=== PATIENT | male | born 1955 | race Caucasian/White ===

== ENCOUNTER 2016-12-21 07:34 | Inpatient (IN) | payer MEDICARE, MEDICAID ==
--- NOTE | 2016-12-21 07:36 | ED Physician Chart ---
Chief Complaint/HPI - Patient Information Date Seen:: 12/21/16 Time Seen:: 07:35 Chief Complaint:: shortness of breath History of Present Illness:: 61-year-old male brought in by paramedics with acute, severe, shortness of breath that started about 1 hour prior to arrival. Has associated hypoxia. Apparently had O2 sats in the mid 70s on room air prior to arrival. History limited due to patient's clinical condition where he is unable to speak due to respiratory distress History provided by EMS and EMS run sheet Allergies:: Allergies Allergy/AdvReac Type Severity Reaction Status Date / Time No Known Allergies Allergy Verified 07/06/16 20:25 Historian:: EMS Review:: Nurse's Note Reviewed, EMS run form Reviewed, Transfer documents Reviewed Review of Systems - Review of Systems Other: Complete system review otherwise unremarkable except as noted in HPI. Family Medical History - Family Member Mother History Unknown: Yes Physical Exam - Physical Examination Other:: INITIAL VITAL SIGNS: Reviewed by me GENERAL: Patient is lying on gurney and is in severe respiratory distress HEAD: Head is normocephalic. No evidence of trauma. No scalp or facial swelling EYES: No scleral icterus bilaterally ENT: Oropharynx is clear of exudate and erythema NECK: Supple. No meningismus. No masses. No evidence of trauma. No cervical spine bony step-offs or crepitus to palpation RESPIRATORY: Tachypneic bilateral rhonchi worse on the right than left. CV: Regular rate and rhythm. No murmurs, rubs, or gallops ABDOMEN: Soft, non-distended. No masses BACK: No ecchymoses. No evidence of trauma EXTREMITIES: Normal to inspection and palpation. No deformity SKIN: Warm and dry. No obvious rash. No jaundice NEUROLOGIC: Face is symmetric. Withdraws to pain in all extremities Labs/Radiology/EKG Results - Lab Results Results: Lab Results 12/21/16 12/21/16 12/21/16 Range/Units 07:55 07:55 07:55 WBC 3.2 L D (4.8-10.8) Th/cmm RBC 4.98 (4.30-5.70) Mil/cmm Hgb 15.8 D (13.2-17.3) gm/dL Hct 46.4 D (39.0-49.0) % MCV 93.1 (80-99) fl MCH 31.7 H (26.0-30.0) pg MCHC Differential 34.0 (28.0-36.0) pg RDW 12.8 (11.5-20.0) % Plt Count 121 L D (150-400) Th/cmm MPV 10.8 fl PT 12.6 H (9.5-11.5) SECONDS INR 1.20 (0.5-1.4) PTT (Actin FS) 27.8 (26.0-38.0) SECONDS Sodium 138 (136-145) mEq/L Potassium 3.1 L (3.5-5.1) mEq/L Chloride 101 (98-107) mEq/L Carbon Dioxide 26.1 (21.0-31.0) mEq/L Anion Gap 14.0 (7.0-16.0) BUN 50 H (7-25) mg/dL Creatinine 0.9 (0.7-1.3) mg/dL Est GFR ( Amer) > 60.0 (>90) ml/min Est GFR (Non-Af Amer) > 60.0 ml/min BUN/Creatinine Ratio 55.6 Glucose 144 H (70-105) mg/dL Whole Bld Lactic Acid (0.60-1.99) mmol/L Calcium 9.5 (8.6-10.3) mg/dL Total Bilirubin 1.3 H (0.3-1.0) mg/dL AST 25 (13-39) U/L ALT 11 (7-52) U/L Alkaline Phosphatase 65 (34-104) U/L Creatine Kinase 26 L (30-223) U/L Total Protein 6.7 (6.0-8.3) gm/dL Albumin 3.3 L (4.2-5.5) gm/dL Globulin 3.4 gm/dL Albumin/Globulin Ratio 1.0 (1.0-1.8) 12/21/16 Range/Units 08:20 WBC (4.8-10.8) Th/cmm RBC (4.30-5.70) Mil/cmm Hgb (13.2-17.3) gm/dL Hct (39.0-49.0) % MCV (80-99) fl MCH (26.0-30.0) pg MCHC Differential (28.0-36.0) pg RDW (11.5-20.0) % Plt Count (150-400) Th/cmm MPV fl PT (9.5-11.5) SECONDS INR (0.5-1.4) PTT (Actin FS) (26.0-38.0) SECONDS Sodium (136-145) mEq/L Potassium (3.5-5.1) mEq/L Chloride (98-107) mEq/L Carbon Dioxide (21.0-31.0) mEq/L Anion Gap (7.0-16.0) BUN (7-25) mg/dL Creatinine (0.7-1.3) mg/dL Est GFR ( Amer) (>90) ml/min Est GFR (Non-Af Amer) ml/min BUN/Creatinine Ratio Glucose (70-105) mg/dL Whole Bld Lactic Acid 5.69 H* (0.60-1.99) mmol/L Calcium (8.6-10.3) mg/dL Total Bilirubin (0.3-1.0) mg/dL AST (13-39) U/L ALT (7-52) U/L Alkaline Phosphatase (34-104) U/L Creatine Kinase (30-223) U/L Total Protein (6.0-8.3) gm/dL Albumin (4.2-5.5) gm/dL Globulin gm/dL Albumin/Globulin Ratio (1.0-1.8) - Radiology Results Results: Single AP VIEW Portable Chest X-ray was interpreted independently and contemporaneously by Alex Oliveira MD: No cardiomegaly Normal mediastinum Diffuse right-sided infiltrates No pneumothorax No soft tissue or bony abnormalities - EKG Interpretations Comments:: 12-lead EKG Interpretation by Alex Oliveira MD: Normal Sinus Rhythm with ventricular rate of 99 beats per minute Normal axis Normal intervals No acute ST or T wave changes. No obvious STEMI ED Septic Shock - . Is Septic Shock (SBP<90, OR Lactate>4 mmol\L) present?: Yes - <6hrs of presentation: Vital Signs: Vital Signs Temp 97.7 F 12/21/16 07:55 HR 106 12/21/16 07:55 RR 31 12/21/16 07:55 BP 116/68 12/21/16 07:55 O2 Sat % 88 12/21/16 07:55 Temp 97.7 F 12/21/16 07:55 HR 106 12/21/16 07:55 RR 31 12/21/16 07:55 BP 116/68 12/21/16 07:55 O2 Sat % 88 12/21/16 07:55 Assessment of Lungs: Ventilator Assessment of Heart: RRR EKG Interpretation: NSR, No ST elevation, No ST depression, Documented in Result Capillary refill evaluation: Capillary refill < 2 secs Skin Exam: Warm, Dry, No Edema - Peripheral pulse evaluation Brachial Peripheral pulse evaluation-quality: +2 (normal) Reassessment (Disposition) - Reassessment Reassessment:: Patient in severe respiratory distress and quickly moving to respiratory failure. Respiratory failure, proceeded with rapid sequence intubation Patient has G-tube and history of anoxic encephalopathy. Most likely this is aspiration pneumonia. Intubation Endotracheal Intubation by me, Dr. Alex Oliveira M.D.: Pre assessment performed. See preceding note for details. Pre-oxygenation performed with 100% oxygen RSI: Performed w/o complication or hypoxic events. Medications as ordered. Blade: MAC 4 ET Tube: 7.5 cm Depth: 24 cm at the lip Compl: No hypoxic events or bradycardia Intubation confirmed by colorimetric CO2, equal breath sounds, quiet over the stomach. Chest X-ray 1V Interpreted by me: 2.5 cm above the esperanza ET tube. Normal soft tissue, No pneumothorax. Admit MDM: Patient's infectious symptoms have not stabilized and the patient is at risk of rapid decompensation. The patient will be admitted for careful hydration, antibiotic therapy, and infectious source control. Severe Sepsis criteria: Infectious source: left sided pneumonia End organ damage indicated by: Lactate > 2.0 mmol/L Acute Resp Failure (sat < 92% w/o oxygen) Sepsis Management: Time of recognition of severe sepsis/septic shock: 0735 Within 3 hours of recognition: Blood cultures x 2 before broad-spectrum antibiotics: Yes 30 ml/kg NS bolus Completed Initial lactate 5.69 Septic Shock Assessment: Any lactic acid > 4.0 yes Volume Re-assessment for Septic Shock (post 30 ml/kg bolus): Vital Signs Temp 97.7 F 12/21/16 07:55 HR 106 12/21/16 07:55 RR 31 03/07/17 07:55 BP 116/68 12/21/16 07:55 O2 Sat % 88 12/21/16 07:55 Temp 97.8 F 12/21/16 09:01 HR 88 12/21/16 09:01 RR 12 12/21/16 09:01 BP 133/74 12/21/16 09:01 O2 Sat % 97 12/21/16 09:01 Heart Regular rate & rhythm Lungs No crackles, ventilated Skin Warm & dry Cap Refill Less than 2 seconds Peripheral pulses Radially present Persistent Hypotension Treatment: Comfort care No Central line right external jugular, 18-gauge I considered further perfusion assessment with CVP measurement, SCVO2, bedside ultrasound volume assessment, passive leg raise, trial of further fluid bolus. And proceeded with 3 L IV normal saline bolus Accepting Care Team Current data and ongoing care discussed. Time: 903 Admitting Physician: Dr. Thomas Metal Stud Framer(s): Outstanding Data: Second lactic acid Critical Care: Critical care time 35 minutes Emergent fluid management while maintaining close respiratory support. Provision of immediate and broad-spectrum antibiotic therapy. Simultaneous assessment for possible sources in order to direct targeted therapy. Consideration for invasive and chemical support to prevent cardiopulmonary collapse. Reassessment Condition:: Improved - Diagnosis Diagnosis:: Septic shock Diffuse right sided pneumonia, aspiration - Aftercare/Follow up Instructions Aftercare/Follow-Up Instructions:: Counseled pt regarding lab results/diagnosis & need follow up, Refer to Discharge Instructions - Patient Disposition Discharge/Transfer:: Acute Care w/in this hosp Admitted to:: ICU Admitting Medical Physician:: Federico Thomas Time:: 09:04 Condition at Disposition:: Stable
[2016-12-21] MEDS ORDERED: Sodium Chloride 0.9% 1,000 ML IV ONE ×3 (07:37)
[2016-12-21] MEDS ORDERED: Piperacillin Sodium/Tazobact 3.375 gm Vial IV ONE (08:12)
[2016-12-21 08:20] LABS: INR 1.2 (0.5-1.4); PROTHROMBIN TIME (TEST) 12.6 SECONDS (9.5-11.5)
[2016-12-21 08:23] LABS: ALKALINE PHOSPHATASE 65 U/L (34-104); BILIRUBIN,TOTAL 1.3 mg/dL (0.3-1.0); BUN - UREA NITROGEN 50 mg/dL (7-25); BUN/CREATININE RATIO 55.6; CALCIUM SERUM 9.5 mg/dL (8.6-10.3); CARBON DIOXIDE 26.1 mEq/L (21.0-31.0); CHLORIDE 101 mEq/L (98-107); CREATININE - SERUM 0.9 mg/dL (0.7-1.3); GLUCOSE 144 mg/dL (70-105); POTASSIUM SERUM 3.1 mEq/L (3.5-5.1); SGOT 25 U/L (13-39); SGPT/ALT 11 U/L (7-52); SODIUM SERUM 138 mEq/L (136-145)
[2016-12-21 08:29] LABS: MEAN CELL VOLUME 93.1 fl (80-99); MEAN CORPUSCULAR HEMOGLOBIN 31.7 pg (26.0-30.0); MEAN PLATELET VOLUME 10.8 fl; RED BLOOD COUNT 4.98 Mil/cmm (4.30-5.70); RED CELL DISTRIBUTION WIDTH 12.8 % (11.5-20.0)
[2016-12-21 08:31] LABS: HEMATOCRIT 46.4 % (39.0-49.0); HEMOGLOBIN 15.8 gm/dL (13.2-17.3); PLATELET COUNT 121 Th/cmm (150-400); WHITE BLOOD COUNT 3.2 Th/cmm (4.8-10.8)
[2016-12-21 09:18] LABS: URINE BILIRUBIN NEGATIVE (NEGATIVE); URINE BLOOD NEGATIVE (NEGATIVE); URINE COLOR YELLOW; URINE GLUCOSE (UA) NEGATIVE (NEGATIVE); URINE KETONE TRACE mg/dL (NEGATIVE); URINE PROTEIN 30 mg/dL (NEGATIVE)
[2016-12-21 09:24] LABS: URINE BACTERIA NONE SEEN /hpf (NONE SEEN); URINE EPITHELIAL CELLS RARE /lpf (FEW); URINE RBC 0-1 /hpf (0-5); URINE WBC 0-2 /hpf (0-5)
--- NOTE | 2016-12-21 09:27 | Diagnostic Imaging Report ---
CHEST X-RAY: AP view INDICATION: ET tube placement COMPARISON: None FINDINGS: ET tube is in place with tip 1.8 cm above the esperanza. Right effusion and right lung infiltrates are noted. Chronic changes are also noted. Heart size normal. Osseous structures are intact. IMPRESSION: ET tube with tip 1.8 cm above the Es[place]anza. Right pleural effusion with right lung infiltrates.
[2016-12-21 10:24] LABS: BAND NEUTROPHILE 17 % (0-10); METAMYELOCYTE 3 % (0-0); NEUTROPHILS 45 % (40-80); PLATELET ESTIMATE DECREASED PLATELETS (NORMAL); PLATELET MORPHOLOGY NORMAL (NORMAL); TOTAL CELLS COUNTED 100
[2016-12-21 10:50] VITALS: BP 126/75
[2016-12-21] MEDS ORDERED: Albuterol Nebulizer 2.5mg/3mL HHN PRN (11:00)
[2016-12-21] MEDS ORDERED: Zinc Oxide Ointment 60 gm TP PRN (11:00)
[2016-12-21] MEDS ORDERED: Fleet Enema 135 mL RC PRN (11:00)
[2016-12-21] MEDS ORDERED: Non-Formulary Item 1 EA (Oxybenzone/Padimate O [Sunscreen Spf8 Lotion] 120 ML) TP PRN (11:00)
[2016-12-21] MEDS ORDERED: D5-0.9%NS 1,000 ML IV SCH (12:13)
--- NOTE | 2016-12-21 12:18 | Internal Medicine Prog Note ---
Internal Medicine Subjective - Subjective Service Date: 12/21/16 ([id number]) Internal Medicine Objective - Results Result Diagrams: 12/21/16 07:55 12/21/16 07:55 Recent Labs: Laboratory Last Values WBC 3.2 Th/cmm (4.8-10.8) L D 12/21/16 07:55 RBC 4.98 Mil/cmm (4.30-5.70) 12/21/16 07:55 Hgb 15.8 gm/dL (13.2-17.3) D 12/21/16 07:55 Hct 46.4 % (39.0-49.0) D 12/21/16 07:55 MCV 93.1 fl (80-99) 12/21/16 07:55 MCH 31.7 pg (26.0-30.0) H 12/21/16 07:55 MCHC Differential 34.0 pg (28.0-36.0) 12/21/16 07:55 RDW 12.8 % (11.5-20.0) 12/21/16 07:55 Plt Count 121 Th/cmm (150-400) L D 12/21/16 07:55 MPV 10.8 fl 12/21/16 07:55 Band Neutrophils % 17 % (0-10) H 12/21/16 07:55 Neutrophils (Manual) 45 % (40-80) 12/21/16 07:55 Lymphocytes 22 % (20-50) 12/21/16 07:55 Monocytes 13 % (2-10) H 12/21/16 07:55 Metamyelocytes 3 % (0-0) H 12/21/16 07:55 Platelet Estimate DECREASED PLATELETS (NORMAL) 12/21/16 07:55 Platelet Morphology NORMAL (NORMAL) 12/21/16 07:55 RBC Morph Micro Appear NORMAL (NORMAL) 12/21/16 07:55 PT 12.6 SECONDS (9.5-11.5) H 12/21/16 07:55 INR 1.20 (0.5-1.4) 12/21/16 07:55 PTT (Actin FS) 27.8 SECONDS (26.0-38.0) 12/21/16 07:55 Sodium 138 mEq/L (136-145) 12/21/16 07:55 Potassium 3.1 mEq/L (3.5-5.1) L 12/21/16 07:55 Chloride 101 mEq/L (98-107) 12/21/16 07:55 Carbon Dioxide 26.1 mEq/L (21.0-31.0) 12/21/16 07:55 Anion Gap 14.0 (7.0-16.0) 12/21/16 07:55 BUN 50 mg/dL (7-25) H 12/21/16 07:55 Creatinine 0.9 mg/dL (0.7-1.3) 12/21/16 07:55 Est GFR ( Amer) > 60.0 ml/min (>90) 12/21/16 07:55 Est GFR (Non-Af Amer) > 60.0 ml/min 12/21/16 07:55 BUN/Creatinine Ratio 55.6 12/21/16 07:55 Glucose 144 mg/dL (70-105) H 12/21/16 07:55 Whole Bld Lactic Acid 6.21 mmol/L (0.60-1.99) H* 12/21/16 10:20 Calcium 9.5 mg/dL (8.6-10.3) 12/21/16 07:55 Total Bilirubin 1.3 mg/dL (0.3-1.0) H 12/21/16 07:55 AST 25 U/L (13-39) 12/21/16 07:55 ALT 11 U/L (7-52) 12/21/16 07:55 Alkaline Phosphatase 65 U/L (34-104) 12/21/16 07:55 Creatine Kinase 26 U/L (30-223) L 12/21/16 07:55 Total Protein 6.7 gm/dL (6.0-8.3) 12/21/16 07:55 Albumin 3.3 gm/dL (4.2-5.5) L 12/21/16 07:55 Globulin 3.4 gm/dL 12/21/16 07:55 Albumin/Globulin Ratio 1.0 (1.0-1.8) 12/21/16 07:55 Urine Source CATH 12/21/16 08:30 Urine Color YELLOW 12/21/16 08:30 Urine Clarity SL. CLOUDY (CLEAR) 12/21/16 08:30 Urine pH 6.0 12/21/16 08:30 Ur Specific [place] 1.025 (1.005-1.030) 12/21/16 08:30 Urine Protein 30 mg/dL (NEGATIVE) H 12/21/16 08:30 Urine Glucose (UA) NEGATIVE mg/dL (NEGATIVE) 12/21/16 08:30 Urine Ketones TRACE mg/dL (NEGATIVE) 12/21/16 08:30 Urine Blood NEGATIVE (NEGATIVE) 12/21/16 08:30 Urine Nitrate NEGATIVE (NEGATIVE) 12/21/16 08:30 Urine Bilirubin NEGATIVE (NEGATIVE) 12/21/16 08:30 Urine Urobilinogen 2.0 E.U./dL (0.2 - 1.0) 12/21/16 08:30 Ur Leukocyte Esterase NEGATIVE (NEGATIVE) 12/21/16 08:30 Urine RBC 0-1 /hpf (0-5) 12/21/16 08:30 Urine WBC 0-2 /hpf (0-5) 12/21/16 08:30 Ur Epithelial Cells RARE /lpf (FEW) 12/21/16 08:30 Urine Bacteria NONE SEEN /hpf (NONE SEEN) 12/21/16 08:30 - Physical Exam Vitals and I&O: Vital Signs Temp 97.8 F 12/21/16 10:12 Pulse 88 12/21/16 10:12 Resp 20 12/21/16 10:12 BP 126/75 12/21/16 10:50 Pulse Ox 98 12/21/16 10:12 Intake & Output 12/20/16 12/21/16 12/21/16 18:59 06:59 18:59 Intake Total 100 Balance 100 Weight (lbs) 173 lb Intake: Intake, IV Amount 100 Piperacillin Sodium/ 100 Tazobact 3.375 gm In Sodium Chloride 0.9% 50 ml @ 100 mls/hr IV X1 ONE Rx#:[id number] Active Medications: Current Medications Acetaminophen (Tylenol 650mg/20.3ml Suspension) 650 mg GT Q4H PRN PRN Reason: PAIN OR TEMP >100 Stop: 02/19/17 10:59 Albuterol Sulfate (Albuterol 2.5mg/3ml Neb Ud) 2.5 mg HHN Q4H PRN PRN Reason: Congestion Stop: 02/19/17 10:59 Atenolol (Tenormin) 25 mg GT DAILY JES[facility] MANUEL Stop: 02/20/17 08:59 Bisacodyl (Dulcolax 10 Mg Supp) 10 mg RC PRN PRN PRN Reason: IF MOM INEFFECTIVE Stop: 02/19/17 10:59 Calcium Carbonate (Tums) 1,250 mg GT DAILY JESUS MANUEL Stop: 02/20/17 08:59 Chlorhexidine Gluconate (Peridex) 15 ml MM 0800,2000 JES[facility] MANUEL Stop: 02/19/17 19:59 Dextromethorphan/Quinidine (Nuedexta 20mg-10mg) 1 cap GT BID JESUS MANUEL Stop: 02/19/17 16:59 Propofol (Diprivan) 1,000 mg in 100 mls @ 0 mls/hr IV TITR JESUS MANUEL; Per Protocol PRN Reason: Protocol Stop: 02/19/17 08:14 Vancomycin HCl 1 gm/ Sodium (Chloride) 250 mls @ 165 mls/hr IV Q12HR JESUS MANUEL Stop: 02/19/17 10:59 Last Admin: 12/21/16 11:18 Dose: 165 mls/hr Propofol (Diprivan) 1,000 mg in 100 mls @ 14.125 mls/hr IV TITR JESUS MANUEL; 30 MCG/KG/ MIN PRN Reason: Protocol Stop: 02/19/17 11:26 Dextrose/Sodium Chloride (D5-0.9%Ns) 1,000 mls @ 125 mls/hr IV .Q8H JESU SMANUEL Stop: 02/19/17 12:12 Miscellaneous (Ascorbic Acid) 500 mg GT BID [facility] Stop: 02/19/17 16:59 Miscellaneous (Calcium Carb/Magnesium Hydrox [Mi-Acid Ds Tablet]) 1 ctb GT QID JES[facility] MANUEL Stop: 02/19/17 12:59 Miscellaneous (Cholecalciferol (Vitamin D3) [Vitamin D3]) 400 unit GT DAILY [facility] Stop: 02/20/17 08:59 Miscellaneous (Multivit,Th Iron,Other Min [Thera-M]) 1 tab GT DAILY [facility] Stop: 02/20/17 08:59 Miscellaneous (Omeprazole [Omeprazole]) 20 mg GT BID [facility] Stop: 02/19/17 16:59 Miscellaneous (Oxybenzone/Padimate O [Sunscreen Spf8 Lotion]) 120 ml TP PRN PRN PRN Reason: SUN EXPOSURE Miscellaneous (Prostat ) 30 ml GT DAILY [facility] Stop: 02/20/17 08:59 Miscellaneous (Zinc Oxide [Desitin]) 13 % TP PRN PRN PRN Reason: G-TUBE AREA IRRITATION Polyethylene Glycol (Miralax) 17 gm GT DAILY PRN PRN Reason: Constipation Stop: 02/19/17 10:59 Quetiapine Fumarate (Seroquel) 300 mg GT HS JESUS MANUEL PRN Reason: Protocol Stop: 02/19/17 20:59 Quetiapine Fumarate (Seroquel) 200 mg GT DAILY [facility]ES[facility] MANUEL PRN Reason: Protocol Stop: 02/20/17 08:59 Sodium Phosphate (Fleet Enema) 135 ml RC PRN PRN PRN Reason: IF DULCOLAX INEFFECTIVE Stop: 02/19/17 10:59 Trazodone HCl (Desyrel) 25 mg GT HS JESUS MANUEL PRN Reason: Protocol Stop: 02/19/17 20:59 Valproate Sodium (Depakene) 625 mg GT DAILY JESUS MANUEL PRN Reason: Protocol Stop: 02/20/17 08:59 Valproate Sodium (Depakene) 750 mg GT HS JESUS MANUEL PRN Reason: Protocol Stop: 02/19/17 20:59 - Procedures Procedures: Procedures Procedure Code Date CHANGE FEEDING DEVICE IN UP INTEST TRACT, GOVERNMENT RELATIONS MANAGER APPROACH [id number] 07/06/[address] GASTROSTOMY TUBE 89493 02/16/09 OTHER ENDOSCOPY OF SM INTEST 45.13 02/16/09 REPLACE GASTROSTOMY TUBE 97.02 02/16/09 Internal Medicine Assmt/Plan - Assessment Assessment: Septic Shock PNA htn gastritis hypokalemia
[2016-12-21] MEDS ORDERED: Albuterol/Ipratropium Neb 3 ML AERS HHN PRN (12:19)
--- NOTE | 2016-12-21 12:56 | Admit Criteria Form ---
Admit Criteria Forms - Admit Criteria Diagnosis: SEVERE SEPSIS Clinical Indications for Admission to Inpatient Care (Place 'X' for any and all applicable criteria): Hospital admission is needed for appropriate care of the patient because of ANY ONE of the following: [X]I. Hemodynamic instability indicated by ANY ONE of the following(1)(2)(3)( 4)(5): []a. Vital sign abnormality not readily corrected by appropriate treatment within 12 to 24 hours indicated by ANY ONE of the following: []i) Tachycardia that persists despite appropriate treatment []ii) Hypotension that persists despite appropriate treatment []iii)Orthostatic vital sign changes that persist despite appropriate treatment [X]b. Vital sign abnormality that is severe indicated by ANY ONE of the following: [X]i.Inadequate perfusion indicated by ANY ONE of the following : [X]1) Lactic acidosis (greater than 2 mmol/L) []2) New abnormal capillary refill (greater than 3 seconds) []3) Reduced urine output []4) New altered mental status []5) Myocardial Ischemia []ii. Mean arterial pressure [A] less than 60 mm Hg []iii. Mean arterial pressure[A] less than 70 mm Hg after 30 minutes of appropriate treatment (eg, fluid resuscitation) []iv. Sustained heart rate greater than 120 beats per minute in adult []v. IV inotropic or vasopressor medication required to maintain adequate blood pressure or perfusion []II. Systemic or infectious condition causing severe symptoms or findings not responsive to emergency or observation care treatment (as appropriate) indicated by ANY ONE of the following: []a. Cardiac arrhythmias of immediate concern(1)(2)(3) []b. Severe endocrine disorder (eg, thyrotoxicosis, adrenal insufficiency)(4)(5) []c. Seizures (eg, new or recurrent)(6) []d. New-onset end organ failure or dysfunction as indicated by ANY ONE of the following: []i. Acute unexplained hypoxemia (eg, not from lung infection or chronic disease)(7)(8)(9) []ii. Acute renal failure as indicated by new onset of ANY ONE of the following(10)(11)(12)(13)(14): []1) 3-fold rise in serum creatinine from baseline []2) Serum creatinine greater than 4 mg/dL (354 micromoles/L) with acute rise greater than 0.5 mg/dL (44.2 micromoles/L) []3) Reduction of more than 75% in estimated glomerular filtration rate from baseline. []4) Estimated glomerular filtration rate less than 35 mL/min/1.73m2 ( 0.59 mL/sec/1.73m2) in child younger than 18 years. []5) Cessation of urine output indicated by ALL of the following: []A. Adequate volume status []B. Inadequate urine output as indicated by ANY ONE of the following: []a. Urine output less than 0.3 mL/kg/hr for 24 hours []b. Anuria (urine output less than 0.1 mL/kg/hr) for 12 hours []iii. Acute mental status changes(15) []iv.Acute hepatic failure (eg, plasma bilirubin greater than 4 mg/dL ( 68 micromoles/L), new INR greater than 2.0)(16)(17) []e. Unmanageable nausea and vomiting(18) []f. New-onset or uncontrolled central diabetes insipidus(19)(20) []g. Clinically significant dehydration(18)(21) []h. Hypoglycemia(22) []i. Acidosis (pH less than 7.35) or alkalosis (pH greater than 7.45)( 22)(23) []j. Toxic drug level that indicates need for specific monitoring or treatment(24)(25) []k. Severe electrolyte abnormalities indicated by ALL of the following( 1)(2)(3): []i. Electrolytes and associated findings are not as expected for patient baseline or acceptable treatment effects. []ii. Severe abnormalities indicated by ANY ONE of the following: []1) Sodium less than 130 mEq/L (mmol/L) (new) []2) Sodium less than 135 mEq/L (mmol/L) with ANY ONE of the following: []A. Uncorrectable (to near normal or chronic baseline) after trial of outpatient and emergency treatment []B. Altered mental status []C. Seizures []D. Severe medical etiology requiring inpatient management (eg , heart failure, hypovolemia) []3) Sodium greater than 155 mEq/L (mmol/L) []4) Sodium greater than 150 mEq/L (mmol/L) with ANY ONE of the following: []A. Uncorrectable (to near normal or chronic baseline) with outpatient and emergency treatment []B. Altered mental status []C. Seizures []D. Severe medical etiology (eg, hypovolemia, diabetes insipidus) []5) Potassium less than 2.5 mEq/L (mmol/L) despite outpatient and emergency treatment []6) Potassium less than 3 mEq/L (mmol/L) with ANY ONE of the following : []A. Weakness []B. Cardiac abnormality (eg, arrhythmia, conduction disturbance ) []C. Cardiac ischemia []D. Ileus []E. Ongoing medical cause requiring inpatient management (eg, acute renal wasting or SIADH) []F. Other severe symptoms []7) Potassium greater than 6.5 mEq/L (mmol/L) []8) Potassium greater than 5 mEq/L (mmol/L) with ANY ONE of the following: []A. Uncorrectable (to near normal or chronic baseline) with outpatient and emergency treatment []B. Severe ECG findings[A] []C. Acute worsening of renal failure (creatinine greater than 2.5 mg/dL (221 micromoles/L) or significant elevation for age and size) []D. Severe weakness []E. Severe medical etiology (eg, hemolysis, infection, drug overdose) []9) Calcium less than 7 mg/dL (1.75 mmol/L) despite outpatient and emergency treatment(5) []10) Calcium less than 8 mg/dL (2 mmol/L) with significant symptoms or findings (eg, altered mental status, muscle spasms, seizures , breathing difficulty, cardiac abnormality (eg, arrhythmia or conduction disturbance))(5) []11) Calcium greater than 14 mg/dL (3.5 mmol/L)(5) []12) Calcium greater than 12 mg/dL (3 mmol/L) with ANY ONE of the following(5): []A. Uncorrectable (to near normal or chronic baseline) with outpatient and emergency treatment []B. Significant dehydration or hypovolemia as indicated by ALL of the following(3)(6)(7): []a. Not resolved with initial treatments []b. Clinically significant dehydration as indicated by ANY ONE of the following: [](1) Vomiting refractory to outpatient treatment (ie, precluding oral rehydration) [](2) Inability to drink [](3) Hypernatremia or other electrolyte abnormality unable to be corrected with outpatient and emergency treatment [](4) Failure to remain hydrated with outpatient therapy [](5) Reduced urine output [](6) Hypotension [](7) Serious cause for dehydration requiring acute hospitalization ( eg, bowel obstruction, increased intracranial pressure, infectious cause) [](8) Child with ANY ONE of the following(8): [](i) Severe abdominal tenderness [](ii) Adequate care not available at home [](iii) Severe dehydration (greater than 9% loss of body weight) []C. Significant symptoms or findings (eg, altered mental status , cardiac abnormality (eg, arrhythmia, conduction disturbance), malignant etiology requiring inpatient treatment) []13) Phosphorus less than 1 mg/dL (0.32 mmol/L) []14) Phosphorus less than 1.5 mg/dL (0.48 mmol/L) with ANY ONE of the following: []A. Patient unresponsive to outpatient and emergency treatment []B. Significant symptoms or findings (eg, weakness, altered mental status, breathing difficulty, seizures, rhabdomyolysis) []15) Phosphorus greater than 10 mg/dL (3.2 mmol/L) []16) Phosphorus greater than 4.5 mg/dL (1.45 mmol/L) (new) with ANY ONE of the following: []A. Severe medical etiology (eg, crush injury, acute renal failure) []B. Associated hypocalcemia with significant findings (eg, neurologic symptoms, altered mental status, muscle spasms, seizures, breathing difficulty, cardiac abnormality (eg, arrhythmia, conduction disturbance)) []16) Magnesium less than 1 mg/dL (0.41 mmol/L) []17) Magnesium less than 1.5 mg/dL (0.62 mmol/L) with ANY ONE of the following: []A. Patient unresponsive to outpatient and emergency treatment []B. Associated hypocalcemia with significant findings (eg, altered mental status, muscle spasms, seizures, breathing difficulty, cardiac abnormality (eg, arrhythmia, conduction disturbance)) []C. Associated hypokalemia (potassium less than 3 mEq/L (mmol/L )) with risk of arrhythmia []18) Magnesium greater than 4 mEq/L (2 mmol/L) []19) Magnesium greater than 2.5 mEq/L (1.25 mmol/L) with significant symptoms or findings (eg, weakness, altered mental status, cardiac abnormality (eg, arrhythmia, conduction disturbance), breathing difficulty, severe medical etiology (eg, renal failure, hypovolemia)) []20) Uric acid greater than 20 mg/dL (1190 micromoles/L)(9) []21) Uric acid greater than 8 mg/dL (476 micromoles/L) with significant symptoms or findings of tumor lysis syndrome (eg, creatinine greater than 1.5 times upper limit of normal, cardiac abnormality (eg, arrhythmia, conduction disturbance), seizure)(9) []III. High fever or other high-risk infection situation as indicated by ANY ONE of the following(26)(27)(28): []a. Outpatient and observation care antimicrobial treatment unavailable, not effective, or not appropriate []b. Documented bacteremia []c. Temperature greater than 104.9 degrees F (40.5 degrees C) (oral) []d. Temperature greater than 103.1 degrees F (39.5 degrees C) (oral) or less than 96.8 degrees F (36 degrees C) (rectal) that does not respond to emergency treatment and observation care []IV. High-risk febrile neutropenia[A] as indicated by ANY ONE of the following(29)(30)(31)(32): []a. Profound neutropenia[B] anticipated to extend for more than 7 days []b. Hemodynamic instability []c. Hypoxemia []d. Tachypnea []e. Altered mental status []f. New-onset abdominal pain []g. New-onset vomiting or diarrhea []h. Oral or gastrointestinal mucositis that interferes with swallowing or causes severe diarrhea []i. Focal infection (eg, cellulitis, pneumonia, central line or catheter infection, perirectal abscess) []j. Renal insufficiency (eg, GFR of less than 30 mL/min/1.73m2 (0.5 mL/sec /1.73m2)). []k. Severe liver dysfunction (transaminase levels greater than 5 times normal) []l. Platelet count less than 50,000/mm3 (50 x109/L)(33) []m. Leukemia or lymphoma induction therapy []n. Leukemia not in complete remission or with evidence of disease progression []o. Bone marrow transplant patient []p. Alemtuzumab being used for therapy []q. [employer] Association for Supportive Care in Cancer (MASCC) Risk Index score of less than 21[C](33)(35). []V. Isolation required (eg, tuberculosis that requires isolation, Ebola infection)[D](36)(37)(38)(39)(40) []. Gangrene that requires treatment beyond emergency or observation level care(41)(42) []VII. Antitoxin administration and ongoing observation required (eg, tetanus, botulism)(43)(44) []. Suspected infection with rapid progression or severe symptoms as indicated by ANY ONE of the following(45): []a. Streptococcal or staphylococcal toxic shock(46) []b. Diphtheria(47) []c. Hantavirus(48) []d. Severe acute respiratory syndrome(8)(49) []e. Anthrax(50) []f. Ebola[D](36)(37)(38) []g. Necrotizing soft tissue infection(41)(42) []h. Plague(50) []i. Other suspected infection that requires care beyond emergency or observation level care []VII. Severe adverse drug or systemic toxin reaction as indicated by ANY ONE of the following(24): []a. Serotonin syndrome(51)(52) []b. Neuroleptic malignant syndrome(51)(52) []c. Cholinergic syndrome with severe symptoms (eg, bronchorrhea, weakness , mental status changes, seizures)(53) []d. Anticholinergic syndrome []e. Sympathetic syndrome with severe symptoms (eg, seizures, mental status changes, cardiac dysrhythmias) []f. Other severe adverse drug or systemic toxin reaction that remains after emergency or observation level care (as appropriate) []VIII. Allergic reaction with severe symptoms (not responsive to emergency or observation care treatment as appropriate), including ANY ONE of the following(54): []a. Airway edema (pharyngeal, epiglottic, or laryngeal edema) []b. Stridor []c. Respiratory failure []d. Bronchospasm []e. Hypotension []IX. Environmental emergency (not responsive to emergency or observation care treatment as appropriate) as indicated by ANY ONE of the following(55)(56): []a. Hyperthermia []b. Heat stroke []c. Heat exhaustion []d. Hypothermia (temperature less than 95 degrees F (35 degrees C) rectal) (57) []e. Electrocution(58) []X. Complications of transplanted organ (ie, not covered elsewhere)[E] indicated by ANY ONE of the following(59): []a. Acute graft rejection (or graft vs. host disease)[F] requiring inpatient management (eg, intravenous immunosuppression)(60)(61)(62)(63) []b. Acute failure of transplanted organ necessitating inpatient care (eg, cannot be managed in other setting) []c. Infection requiring inpatient management (eg, Hemodynamic instability, need for intravenous antimicrobial treatment)(64)(65) []d. Other complication of transplanted organ requiring inpatient management []XI. Systemic or Infectious Condition condition, symptom, or finding for which emergency and observation care have failed or are not considered appropriate. See General Criteria: Observation Care, General Admission Criteria or Pediatric General Admission Criteria guideline as appropriate. (Contents from SEVERE SEPSIS and SYSTEMIC OR INFECTIOUS CONDITION clinical indications for admission to inpatient care have been integrated in this form) The original [facility] content created by [facility] has been revised. The portions of the content which have been revised are identified through the use of italic text or in bold and [facility] has neither reviewed nor approved the modified material. All other unmodified content is copyright [facility]. Please see references footnoted in the original [facility] edition 2016 Admit Criteria Met?: Yes
[2016-12-21] MEDS: D5-0.9%NS 1,000 ML IV SCH (13:30)
[2016-12-21] MEDS ORDERED: Potassium Chloride 40 MEQ, Lidocaine 1% 20mL Vial 25 MG in Sodium Chloride 0.9% 250 ML IV ONE (14:15)
[2016-12-21] MEDS ORDERED: Albuterol Nebulizer 2.5mg/3mL HHN SCH (15:00)
--- NOTE | 2016-12-21 15:41 | History & Physical ---
CHIEF COMPLAINT: Shortness of breath. HISTORY OF PRESENT ILLNESS: This is a 61-year-old male who is a resident of [facility] who is brought here to [facility] for 1-day history of severe shortness of breath. The patient had oxygen saturation in the mid 70s on room air. The patient was orally intubated and sedated in the ER. For this reason, the patient is now admitted to the ICU. PAST MEDICAL HISTORY: Severe intellectual disability, hypertension, dysphagia, anoxic encephalopathy, aspiration pneumonia, impulse control disorder, insomnia, gastritis, bipolar disorder and pseudobulbar affect. FAMILY HISTORY: Noncontributory. SOCIAL HISTORY: The patient resides at [facility], requiring 24-hour nursing care. PAST SURGICAL HISTORY: PEG. MEDICATIONS: Atenolol, calcium carbonate, Nuedexta, omeprazole, Pro-Stat, trazodone, valproic acid, vitamin C, ____, albuterol and Atrovent. REVIEW OF SYSTEMS: Unable to obtain due to the patient's mental status. PHYSICAL EXAMINATION: GENERAL: The patient remained orally intubated. VITAL SIGNS: Temperature ____, heart rate ____, blood pressure 152/77, respirations 20, O2 98%. HEENT: Head; normocephalic, atraumatic. NECK: Supple. No mass. LUNGS: Rhonchi bilaterally. CARDIOVASCULAR: Regular rhythm. ABDOMEN: Soft, nontender, nondistended. LABORATORY DATA: WBC 3.2, H and H ____ and 46.4, platelet of 121. PT 12.6, INR 1.20, PTT 27.8. Lactic acid 6.21. Sodium 138, potassium 3.1, chloride 101, carbon dioxide 26.1, BUN 50, creatinine 0.9. The patient had a urinalysis done, negative for any UTI. The patient had a chest x-ray done in the ER and the impression is right pleural effusion with right lung infiltrate. ASSESSMENT: Septic shock, pneumonia, acute respiratory distress, hypertension, and gastritis. PLAN: The patient to be admitted to ICU. The patient will have a consultation with Dr. Clarence Howard and Dr. Wilfred Howard as well. The patient will be on IV antibiotics of vancomycin per Pharmacy dose. We will keep the patient n.p.o. for now except medications. Will have a PICC line placed. IV fluids for hydration. We will continue to monitor the patient. [facility]# [id number]
[2016-12-21] MEDS: Dextromethorphan/Quinidine 20mg/10mg Cap GT SCH (16:31)
[2016-12-21] MEDS: Pantoprazole 40 mg/Packet GT SCH (16:32)
[2016-12-21] MEDS: Morphine Sulfate 2 mg/mL 1mL Syr IVP PRN (17:34)
[2016-12-21] MEDS: methylPREDNISolone SS 40 mg Vial IV SCH (17:35)
[2016-12-21] MEDS: MAGNESIUM HYDROX GT SCH (17:48)
[2016-12-21] MEDS: CALCIUM CARB GT SCH (17:48)
[2016-12-21] MEDS: Budesonide 0.5 Mg/2 mL Ud HHN SCH (19:22)
[2016-12-21] MEDS: Albuterol/Ipratropium Neb 3 ML AERS HHN SCH ×2 (19:22→23:41)
[2016-12-21] MEDS: Chlorhexidine Gluconate 0.12% 15mL Mouthwash MM SCH (20:58)
[2016-12-22] MEDS: methylPREDNISolone SS 40 mg Vial IV SCH ×2 (00:20→05:52)
[2016-12-22] MEDS: D5-0.9%NS 1,000 ML IV SCH (01:02)
[2016-12-22] MEDS: Albuterol/Ipratropium Neb 3 ML AERS HHN SCH ×6 (03:24→22:48)
[2016-12-22 05:39] LABS: MEAN CELL VOLUME 95.6 fl (80-99); MEAN CORPUSCULAR HEMOGLOBIN 32.6 pg (26.0-30.0); MEAN CORPUSCULAR HGB CONC 34.1 pg (28.0-36.0); MEAN PLATELET VOLUME 11.8 fl; PLATELET COUNT 109 Th/cmm (150-400); RED BLOOD COUNT 3.48 Mil/cmm (4.30-5.70); RED CELL DISTRIBUTION WIDTH 13.3 % (11.5-20.0)
[2016-12-22 05:42] LABS: ANION GAP 15.4 (7.0-16.0); BUN - UREA NITROGEN 43 mg/dL (7-25); BUN/CREATININE RATIO 61.4; CALCIUM SERUM 7.5 mg/dL (8.6-10.3); CARBON DIOXIDE 17.9 mEq/L (21.0-31.0); CHLORIDE 114 mEq/L (98-107); CREATININE - SERUM 0.7 mg/dL (0.7-1.3); MAGNESIUM 1.8 mg/dL (1.9-2.7); PHOSPHOROUS 2.4 mg/dL (2.5-5.0); POTASSIUM SERUM 3.3 mEq/L (3.5-5.1); SODIUM SERUM 144 mEq/L (136-145)
[2016-12-22 05:45] LABS: HEMATOCRIT 33.3 % (39.0-49.0); HEMOGLOBIN 11.3 gm/dL (13.2-17.3); WHITE BLOOD COUNT 9.8 Th/cmm (4.8-10.8)
[2016-12-22 06:05] LABS: TSH 2.71 uIU/ml (0.34-5.60)
[2016-12-22 06:09] LABS: GLUCOSE 515 mg/dL (70-105)
--- NOTE | 2016-12-22 06:43 | Consultation ---
REASON FOR CONSULTATION: Help the patient with acute respiratory failure. 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 The patient was subsequently seen in the Emergency Room and the patient has desaturation despite high flow oxygen, etc. Subsequently, I was asked to see the patient post-intubation on a ventilator to manage the case on this patient. Unfortunately, the patient is still quite agitated despite on sedative drips, etc., and very difficult to get any information. I am not too sure how much he is intellectually communicable person. PAST MEDICAL HISTORY: Severe intellectual disability, physical disability, hypertension, dysphagia and previous questionable history of anoxic encephalopathy, previous history of aspiration and also previous history of bipolar and pseudobulbar effect. Smoking history is nil. Allergic history is none. The patient ____ totally cared by people at [facility]. CURRENT MEDICATION: He is taking beta ashley, calcium carbonate, omeprazole, valproic acid, albuterol, Atrovent, Trazodone, etc., multiple medication. PHYSICAL FINDINGS: GENERAL: This is a middle-aged fairly developed gentleman, awake, quite restless and ____ to have quite atrophic lower extremity. Upper extremity has good movement and noncommunicative and not in any acute distress. VITAL SIGNS: The patient's recorded vitals BP is 119/60, temperature earlier was 100.2, saturation is 90% on 100% on a ventilator. HEENT: Examination of the head is essentially unremarkable. Pupils appear to be equal and reacting to light. Conjunctivae are slightly pallor. Oral cavity shows endotracheal tube with poor dental hygiene, trying to bite the endotracheal tube. NECK: Veins could not be visualized. There is a central line from the right jugular, good bilateral carotid upstroke. CHEST: Findings show slight increase in the PA diameter. On auscultation, diminished air entry with mostly on the right side with occasional rhonchi. HEART: Regular. ABDOMEN: Shows lower abdominal surgical scar with upper area G-tube soft and nontender. EXTREMITIES: Shows poor pulsations. No cyanosis or clubbing. LABORATORY DATA: White count is 3.2, hemoglobin 15.8 and monocytes is elevated. PT/INR is 1.2 and the patient's electrolytes show potassium 3.1, BUN is 50 and glucose 144, lactic acid 6.21 and the patient's protein in urine is essentially 30, quite high. Chest x-ray shows endotracheal tube in good position, smaller size with some right-sided haziness, probably infiltrate and/or effusion both. ASSESSMENT: 1. The patient has acute respiratory failure with extensive infiltrate and effusion on the right side. Most likely this is an aspiration of gastric content, also ____ aspiration, most likely scenario and/or possibility of healthcare-associated pneumonia as the patient lives in [place], could be not totally 100%, no doubt. 2. Currently, requiring very high flow oxygenation, probably most likely as above, doubt PE, underlying history is significant intellectual and physical disability, underlying psychiatric illness as well and psychological disability as well. PLANS AND SUGGESTIONS: We will go ahead and restart the steroid, agree with Zosyn and vancomycin and repeat the cultures. We will give inhaled steroid and repeat blood gasses, chest x-ray in next 24-48 hours and see how he does and go from there. JOB# [id number]
[2016-12-22] MEDS: Budesonide 0.5 Mg/2 mL Ud HHN SCH ×2 (07:59→19:21)
[2016-12-22] MEDS: Chlorhexidine Gluconate 0.12% 15mL Mouthwash MM SCH ×2 (08:00→20:33)
[2016-12-22 08:18] LABS: BAND NEUTROPHILE 43 % (0-10); METAMYELOCYTE 4 % (0-0); NEUTROPHILS 37 % (40-80); TOTAL CELLS COUNTED 100
[2016-12-22 08:19] LABS: PLATELET ESTIMATE DECREASED PLATELETS (NORMAL); PLATELET MORPHOLOGY NORMAL (NORMAL)
[2016-12-22] MEDS: Pantoprazole 40 mg/Packet GT SCH (08:51)
[2016-12-22] MEDS: Dextromethorphan/Quinidine 20mg/10mg Cap GT SCH (08:55)
[2016-12-22] MEDS: Multivitamin w/ Minerals Tab GT SCH (08:55)
[2016-12-22] MEDS ORDERED: PROSTAT GT SCH (09:00)
--- NOTE | 2016-12-22 09:10 | Diagnostic Imaging Report ---
CHEST X-RAY: AP view INDICATION: PICC line placement COMPARISON: Chest x-ray earlier the same day at 8:03 AM FINDINGS: ET tube is stable. Right PICC line has been place with tip in the right atrium. Right lung infiltrates and small right effusion is noted. Mild cardiomegaly is noted. IMPRESSION: ET tube with tip in the right atrium. Recommend 2 cm pullback Right lung multifocal infiltrates and small right effusion.
--- NOTE | 2016-12-22 09:18 | Diagnostic Imaging Report ---
CHEST X-RAY: AP view INDICATION: Pneumonia COMPARISON: 12/21/2016 FINDINGS: Right PICC line has been pulled back with tip now in the SVC. ET tube is stable. Right lung infiltrates are noted with probable small right effusion. IMPRESSION: Right PICC line with tip now in the SVC Multifocal right lung infiltrates with probable small right effusion.
--- NOTE | 2016-12-22 11:30 | Internal Medicine Prog Note ---
Internal Medicine Subjective - Subjective Service Date: 12/22/16 (awake, remains orally intubated, no respiratory distress ) Patient seen and examined:: with staff Patient is:: awake Internal Medicine Objective - Results Result Diagrams: 12/22/16 04:40 12/22/16 04:40 Recent Labs: Laboratory Last Values WBC 9.8 Th/cmm (4.8-10.8) D 12/22/16 04:40 RBC 3.48 Mil/cmm (4.30-5.70) L 12/22/16 04:40 Hgb 11.3 gm/dL (13.2-17.3) L D 12/22/16 04:40 Hct 33.3 % (39.0-49.0) L D 12/22/16 04:40 MCV 95.6 fl (80-99) 12/22/16 04:40 MCH 32.6 pg (26.0-30.0) H 12/22/16 04:40 MCHC Differential 34.1 pg (28.0-36.0) 12/22/16 04:40 RDW 13.3 % (11.5-20.0) 12/22/16 04:40 Plt Count 109 Th/cmm (150-400) L 12/22/16 04:40 MPV 11.8 fl 12/22/16 04:40 Band Neutrophils % 43 % (0-10) H 12/22/16 04:40 Neutrophils (Manual) 37 % (40-80) L 12/22/16 04:40 Lymphocytes 8 % (20-50) L 12/22/16 04:40 Monocytes 8 % (2-10) 12/22/16 04:40 Metamyelocytes 4 % (0-0) H 12/22/16 04:40 Platelet Estimate DECREASED PLATELETS (NORMAL) 12/22/16 04:40 Platelet Morphology NORMAL (NORMAL) 12/22/16 04:40 RBC Morph Micro Appear NORMAL (NORMAL) 12/22/16 04:40 PT 12.6 SECONDS (9.5-11.5) H 12/21/16 07:55 INR 1.20 (0.5-1.4) 12/21/16 07:55 PTT (Actin FS) 27.8 SECONDS (26.0-38.0) 12/21/16 07:55 Sodium 144 mEq/L (136-145) 12/22/16 04:40 Potassium 3.3 mEq/L (3.5-5.1) L 12/22/16 04:40 Chloride 114 mEq/L (98-107) H 12/22/16 04:40 Carbon Dioxide 17.9 mEq/L (21.0-31.0) L 12/22/16 04:40 Anion Gap 15.4 (7.0-16.0) 12/22/16 04:40 BUN 43 mg/dL (7-25) H 12/22/16 04:40 Creatinine 0.7 mg/dL (0.7-1.3) 12/22/16 04:40 Est GFR ( Amer) > 60.0 ml/min (>90) 12/22/16 04:40 Est GFR (Non-Af Amer) > 60.0 ml/min 12/22/16 04:40 BUN/Creatinine Ratio 61.4 12/22/16 04:40 Glucose 515 mg/dL (70-105) H* 12/22/16 04:40 POC Glucose 184 MG/DL (70 - 105) H 12/22/16 06:26 Hemoglobin A1c % 5.1 % (4.0-6.0) 12/22/16 04:40 Whole Bld Lactic Acid 5.69 mmol/L (0.60-1.99) H* 12/21/16 18:40 Calcium 7.5 mg/dL (8.6-10.3) L 12/22/16 04:40 Phosphorus 2.4 mg/dL (2.5-5.0) L 12/22/16 04:40 Magnesium 1.8 mg/dL (1.9-2.7) L 12/22/16 04:40 Total Bilirubin 1.3 mg/dL (0.3-1.0) H 12/21/16 07:55 AST 25 U/L (13-39) 12/21/16 07:55 ALT 11 U/L (7-52) 12/21/16 07:55 Alkaline Phosphatase 65 U/L (34-104) 12/21/16 07:55 Ammonia 75 umol/L (16-53) H 12/22/16 04:40 Creatine Kinase 26 U/L (30-223) L 12/21/16 07:55 B-Natriuretic Peptide 134.0 pg/mL (5.0-100.0) H 12/22/16 04:40 Total Protein 6.7 gm/dL (6.0-8.3) 12/21/16 07:55 Albumin 3.3 gm/dL (4.2-5.5) L 12/21/16 07:55 Globulin 3.4 gm/dL 12/21/16 07:55 Albumin/Globulin Ratio 1.0 (1.0-1.8) 12/21/16 07:55 TSH 2.71 uIU/ml (0.34-5.60) 12/22/16 04:40 Urine Source CATH 12/21/16 08:30 Urine Color YELLOW 12/21/16 08:30 Urine Clarity SL. CLOUDY (CLEAR) 12/21/16 08:30 Urine pH 6.0 12/21/16 08:30 Ur Specific [place] 1.025 (1.005-1.030) 12/21/16 08:30 Urine Protein 30 mg/dL (NEGATIVE) H 12/21/16 08:30 Urine Glucose (UA) NEGATIVE mg/dL (NEGATIVE) 12/21/16 08:30 Urine Ketones TRACE mg/dL (NEGATIVE) 12/21/16 08:30 Urine Blood NEGATIVE (NEGATIVE) 12/21/16 08:30 Urine Nitrate NEGATIVE (NEGATIVE) 12/21/16 08:30 Urine Bilirubin NEGATIVE (NEGATIVE) 12/21/16 08:30 Urine Urobilinogen 2.0 E.U./dL (0.2 - 1.0) 12/21/16 08:30 Ur Leukocyte Esterase NEGATIVE (NEGATIVE) 12/21/16 08:30 Urine RBC 0-1 /hpf (0-5) 12/21/16 08:30 Urine WBC 0-2 /hpf (0-5) 12/21/16 08:30 Ur Epithelial Cells RARE /lpf (FEW) 12/21/16 08:30 Urine Bacteria NONE SEEN /hpf (NONE SEEN) 12/21/16 08:30 Vancomycin Trough 28.3 ug/mL (10-20) H 12/22/16 09:50 - Physical Exam Vitals and I&O: Vital Signs Temp 98.2 F 12/22/16 08:00 Pulse 84 03/08/17 08:56 Resp 19 12/22/16 08:00 BP 104/57 12/22/16 08:56 Pulse Ox 96 12/22/16 08:25 Intake & Output 12/21/16 12/22/16 12/22/16 18:59 06:59 18:59 Intake Total 350 1400 Output Total 300 450 Balance 50 950 Weight (lbs) 173 lb 190 lb Intake: Intake, IV Amount 350 1350 D5-0.9%Ns 1,000 ml @ 100 1000 mls/hr IV .Q10H [facility] Rx#: [id number] Piperacillin Sodium/ 100 Tazobact 3.375 gm In Sodium Chloride 0.9% 50 ml @ 100 mls/hr IV X1 ONE Rx#:[id number] Piperacillin Sodium/ 100 Tazobact 4.5 gm In Sodium Chloride 0.9% 100 ml @ 100 mls/hr IV Q8HR [facility] Rx #:[id number] Vancomycin HCl 1 gm In 250 250 Sodium Chloride 0.9% 250 ml @ 165 mls/hr IV Q12HR [facility] Rx#:[id number] Oral 0 Other 50 Output: Urine 300 450 Active Medications: Current Medications Acetaminophen (Tylenol 650mg/20.3ml Suspension) 650 mg GT Q4H PRN PRN Reason: MILD PAIN OR TEMP >100 Stop: 02/19/17 10:59 Last Admin: 12/21/16 16:35 Dose: 650 mg Albuterol/Ipratropium (Duoneb Neb) 3 ml HHN Q4H PRN PRN Reason: Wheezing Stop: 02/19/17 12:18 Albuterol/Ipratropium (Duoneb Neb) 3 ml HHN Q4HRT [facility] Stop: 02/19/17 18:59 Last Admin: 12/22/16 07:59 Dose: 3 ml Ascorbic Acid (Vitamin C) 500 mg GT BID [facility] Stop: 02/19/17 16:59 Last Admin: 12/22/16 08:29 Dose: 500 mg Atenolol (Tenormin) 25 mg GT DAILY [facility] Stop: 02/20/17 08:59 Last Admin: 12/22/16 08:56 Dose: 25 mg Bisacodyl (Dulcolax 10 Mg Supp) 10 mg RC DAILY PRN PRN Reason: IF MOM INEFFECTIVE Stop: 02/19/17 10:59 Budesonide (Pulmicort) 0.5 mg HHN BIDRT [facility] Stop: 02/19/17 18:59 Last Admin: 12/22/16 07:59 Dose: 0.5 mg Calcium Carbonate (Tums) 1,250 mg GT DAILY [facility] Stop: 02/20/17 08:59 Chlorhexidine Gluconate (Peridex) 15 ml MM 0800,2000 [facility] Stop: 02/19/17 19:59 Last Admin: 12/21/16 20:58 Dose: 15 ml Dextromethorphan/Quinidine (Nuedexta 20mg-10mg) 1 cap GT BID [facility] Stop: 02/19/17 16:59 Last Admin: 12/22/16 08:55 Dose: 1 cap Heparin Sodium (Porcine) (Heparin) 5,000 units SUBQ Q12HR [facility] Stop: 02/19/17 20:59 Vancomycin HCl 1 gm/ Sodium (Chloride) 250 mls @ 165 mls/hr IV Q12HR [facility] Stop: 02/19/17 10:59 Last Admin: 12/22/16 08:46 Dose: 165 mls/hr Propofol (Diprivan) 1,000 mg in 100 mls @ 14.125 mls/hr IV TITR [facility]; 30 MCG/KG/ MIN PRN Reason: Protocol Stop: 02/19/17 13:59 Piperacillin Sod/Tazobactam (Sod 4.5 gm/ Sodium Chloride) 100 mls @ 100 mls/hr IV Q8HR [facility] Stop: 02/19/17 20:59 Last Admin: 12/22/16 05:52 Dose: 100 mls/hr Dextrose/Sodium Chloride (D5-0.9%Ns) 1,000 mls @ 100 mls/hr IV .Q10H [facility] Stop: 02/19/17 13:04 Last Admin: 12/22/16 01:02 Dose: 100 mls/hr Lorazepam (Ativan) 1 mg IV Q4HR PRN; Protocol PRN Reason: Seizure Stop: 02/19/17 13:05 Methylprednisolone Sodium Succinate (Solu-Medrol) 40 mg IV Q6HR [facility] Stop: 02/19/17 17:59 Last Admin: 12/22/16 05:52 Dose: 40 mg Miscellaneous (Calcium Carb/Magnesium Hydrox [Mi-Acid Ds Tablet]) 1 ctb GT QID [facility] Stop: 02/19/17 12:59 Last Admin: 12/21/16 17:48 Dose: Not Given Miscellaneous (Oxybenzone/Padimate O [Sunscreen Spf8 Lotion]) 120 ml TP PRN PRN PRN Reason: SUN EXPOSURE Morphine Sulfate (Morphine) 2 mg IVP Q4HR PRN PRN Reason: Pain (Moderate-Severe) Stop: 02/19/17 13:05 Last Admin: 12/21/16 17:34 Dose: 2 mg Ondansetron HCl (Zofran) 4 mg IV Q8H PRN PRN Reason: Nausea / Vomiting Stop: 02/19/17 13:05 Pantoprazole Sodium (Protonix) 40 mg GT DAILY [facility] Stop: 02/19/17 14:59 Last Admin: 12/22/16 08:51 Dose: 40 mg Petrolatum (Zinc Oxide) 1 appl TP Q12H PRN PRN Reason: G-TUBE AREA IRRITATION Stop: 02/19/17 10:59 Last Admin: 12/21/16 16:32 Dose: 1 appl Polyethylene Glycol (Miralax) 17 gm GT DAILY PRN PRN Reason: Constipation Stop: 02/19/17 10:59 Quetiapine Fumarate (Seroquel) 300 mg GT HS [facility] PRN Reason: Protocol Stop: 02/19/17 20:59 Quetiapine Fumarate (Seroquel) 200 mg GT DAILY [facility] PRN Reason: Protocol Stop: 02/20/17 08:59 Sodium Phosphate (Fleet Enema) 135 ml RC Q48H PRN PRN Reason: IF DULCOLAX INEFFECTIVE Stop: 02/19/17 10:59 Trazodone HCl (Desyrel) 25 mg GT HS [facility] PRN Reason: Protocol Stop: 02/19/17 20:59 Valproate Sodium (Depakene) 625 mg GT DAILY [facility] PRN Reason: Protocol Stop: 02/20/17 08:59 Last Admin: 12/22/16 08:53 Dose: 625 mg Valproate Sodium (Depakene) 750 mg GT HS [facility] PRN Reason: Protocol Stop: 02/19/17 20:59 Last Admin: 12/21/16 20:57 Dose: 750 mg Vitamin D (Vitamin D) 400 iu GT DAILY [facility] Stop: 02/20/17 08:59 Last Admin: 03/08/17 08:36 Dose: 400 iu General: alert HEENT: NC/AT, PERRLA Neck: Supple Lungs: ronchi Cardiovascular: without murmur Abdomen: soft non-tender, non-distended Extremities: clear - Procedures Procedures: Procedures Procedure Code Date CHANGE FEEDING DEVICE IN UP INTEST TRACT, SUPERVISOR CELL ROOM APPROACH [id number] 07/06/[address] GASTROSTOMY TUBE 03295 02/16/09 OTHER ENDOSCOPY OF SM INTEST 45.13 02/16/09 REPLACE GASTROSTOMY TUBE 97.02 02/16/09 Internal Medicine Assmt/Plan - Assessment Assessment: Septic Shock PNA htn gastritis hypokalemia - Plan Plan: f/u labs ppi vent support continue ivabx cpm
[2016-12-22] MEDS ORDERED: Potassium Chloride Elixir 20 mEq /15 mL UDC PO ONE (12:00)
[2016-12-22] MEDS ORDERED: Potassium Phosphate 30 MMOLE in Sodium Chloride 0.9% 250 ML IV ONE (14:00)
[2016-12-22] MEDS ORDERED: Mag Sulfate 2gm/50mL Premix 2 GM/50 ML BAG IV ONE (14:00)
[2016-12-23] MEDS: methylPREDNISolone SS 40 mg Vial IV SCH ×4 (00:20→17:05)
[2016-12-23] MEDS: Albuterol/Ipratropium Neb 3 ML AERS HHN SCH ×6 (04:16→22:40)
--- NOTE | 2016-12-23 04:31 | Progress Notes ---
PROBLEM LIST: 1. Acute respiratory failure. 2. Extensive right-sided pneumonia. 3. Underlying history suggestive of significant mental and physical and psychiatrist disability and also history suspect of obstructive sleep apnea syndrome. PHYSICAL EXAMINATION: GENERAL: Awake, trying to talk to sign language but not meaningful. No respiratory distress, etc. VITAL SIGNS: Temperature is 97, pulse is in 80s, blood pressure 121/64 and saturation is almost ____% on 50%. NECK: Veins not visualized. CHEST: Shows diminished air entry with occasional rhonchi. HEART: Regular. ABDOMEN: Soft, nontender. EXTREMITIES: Shows no peripheral edema. LABORATORY DATA: The patient's ABG is not available and patient's white count is 9.8, hemoglobin 11.3. Chest x-ray shows slight improvement. Potassium is 3.3 and other laboratory studies essentially unremarkable. ASSESSMENT: The patient is clinically stable, improving. PLANS AND SUGGESTIONS: We will continue current treatment. We will follow through blood gasses, etc. and see how it is and go from there. JOB# [id number]
[2016-12-23] MEDS: D5-0.9%NS 1,000 ML IV SCH (05:03)
[2016-12-23 05:23] LABS: HEMATOCRIT 35.5 % (39.0-49.0)
[2016-12-23 05:28] LABS: HEMOGLOBIN 12.4 gm/dL (13.2-17.3); MEAN CORPUSCULAR HEMOGLOBIN 32.7 pg (26.0-30.0); MEAN CORPUSCULAR HGB CONC 34.8 pg (28.0-36.0); MEAN PLATELET VOLUME 11.6 fl; RED BLOOD COUNT 3.77 Mil/cmm (4.30-5.70); RED CELL DISTRIBUTION WIDTH 13.4 % (11.5-20.0)
[2016-12-23 05:46] LABS: PLATELET COUNT 140 Th/cmm (150-400); WHITE BLOOD COUNT 14.6 Th/cmm (4.8-10.8)
[2016-12-23 05:56] LABS: ANION GAP 10.9 (7.0-16.0); BUN - UREA NITROGEN 44 mg/dL (7-25); CALCIUM SERUM 8.9 mg/dL (8.6-10.3); CARBON DIOXIDE 23.6 mEq/L (21.0-31.0); CHLORIDE 116 mEq/L (98-107); CREATININE - SERUM 0.5 mg/dL (0.7-1.3); GLUCOSE 201 mg/dL (70-105); POTASSIUM SERUM 3.5 mEq/L (3.5-5.1); SODIUM SERUM 147 mEq/L (136-145)
[2016-12-23 07:05] LABS: HEMATOCRIT 34.4 % (39.0-49.0); HEMOGLOBIN 12.2 gm/dL (13.2-17.3); MEAN CELL VOLUME 94.4 fl (80-99); MEAN CORPUSCULAR HEMOGLOBIN 33.4 pg (26.0-30.0); MEAN CORPUSCULAR HGB CONC 35.4 pg (28.0-36.0); MEAN PLATELET VOLUME 11.7 fl; PLATELET COUNT 142 Th/cmm (150-400); RED BLOOD COUNT 3.64 Mil/cmm (4.30-5.70); RED CELL DISTRIBUTION WIDTH 13.3 % (11.5-20.0)
[2016-12-23 07:13] LABS: WHITE BLOOD COUNT 15.5 Th/cmm (4.8-10.8)
[2016-12-23] MEDS: Budesonide 0.5 Mg/2 mL Ud HHN SCH ×2 (07:34→19:06)
[2016-12-23] MEDS: Chlorhexidine Gluconate 0.12% 15mL Mouthwash MM SCH ×2 (07:56→20:00)
[2016-12-23] MEDS: Multivitamin w/ Minerals Tab GT SCH (08:08)
[2016-12-23] MEDS: Pantoprazole 40 mg/Packet GT SCH (08:09)
[2016-12-23 08:14] LABS: BAND NEUTROPHILE 24 % (0-10); METAMYELOCYTE 2 % (0-0); NEUTROPHILS 63 % (40-80); TOTAL CELLS COUNTED 100
[2016-12-23 08:15] LABS: PLATELET ESTIMATE DECREASED PLATELETS (NORMAL); PLATELET MORPHOLOGY NORMAL (NORMAL)
[2016-12-23 08:19] LABS: BAND NEUTROPHILE 24 % (0-10); METAMYELOCYTE 3 % (0-0); NEUTROPHILS 58 % (40-80); PLATELET ESTIMATE DECREASED PLATELETS (NORMAL); PLATELET MORPHOLOGY NORMAL (NORMAL); TOTAL CELLS COUNTED 100
[2016-12-23] MEDS: Dextromethorphan/Quinidine 20mg/10mg Cap GT SCH ×2 (08:24→16:16)
[2016-12-23] MEDS ORDERED: Vancomycin HCl 1.5 GM in Sodium Chloride 0.9% 500 ML IV SCH (09:00)
[2016-12-23 10:12] LABS: ABG SOURCE Arterial; ALLEN TEST YES; FIO2 50; HCO3 25.5 mEq/L (20.0-26.0); MECH RATE 12; MECH VT 600; pH 7.47 (7.35-7.45)
[2016-12-23] MEDS ORDERED: Probiotic Screen MC PRN (10:32)
--- NOTE | 2016-12-23 12:08 | Internal Medicine Prog Note ---
Internal Medicine Subjective - Subjective Service Date: 12/23/16 (awake, more alert, no respiratory distress) Patient seen and examined:: with staff Patient is:: awake Per staff patient is:: no adverse event Internal Medicine Objective - Results Result Diagrams: 12/23/16 06:45 12/23/16 04:50 Recent Labs: Laboratory Last Values WBC 15.5 Th/cmm (4.8-10.8) H 12/23/16 06:45 RBC 3.64 Mil/cmm (4.30-5.70) L 12/23/16 06:45 Hgb 12.2 gm/dL (13.2-17.3) L 12/23/16 06:45 Hct 34.4 % (39.0-49.0) L 12/23/16 06:45 MCV 94.4 fl (80-99) 12/23/16 06:45 MCH 33.4 pg (26.0-30.0) H 12/23/16 06:45 MCHC Differential 35.4 pg (28.0-36.0) 12/23/16 06:45 RDW 13.3 % (11.5-20.0) 12/23/16 06:45 Plt Count 142 Th/cmm (150-400) L 12/23/16 06:45 MPV 11.7 fl 12/23/16 06:45 Band Neutrophils % 24 % (0-10) H 12/23/16 06:45 Neutrophils (Manual) 63 % (40-80) 12/23/16 06:45 Lymphocytes 9 % (20-50) L 12/23/16 06:45 Monocytes 2 % (2-10) 12/23/16 06:45 Metamyelocytes 2 % (0-0) H 12/23/16 06:45 Nucleated RBCs 1.0 % (0-0) H 12/23/16 06:45 Platelet Estimate DECREASED PLATELETS (NORMAL) 12/23/16 06:45 Platelet Morphology NORMAL (NORMAL) 12/23/16 06:45 RBC Morph Micro Appear NORMAL (NORMAL) 12/23/16 06:45 PT 12.6 SECONDS (9.5-11.5) H 12/21/16 07:55 INR 1.20 (0.5-1.4) 12/21/16 07:55 PTT (Actin FS) 27.8 SECONDS (26.0-38.0) 12/21/16 07:55 Specimen Source Arterial 12/23/16 09:50 Sample Site Right Radial 12/23/16 09:50 pH 7.47 (7.35-7.45) H 12/23/16 09:50 pCO2 35.0 mmHg (35.0-45.0) 03 09:50 pO2 92.0 mmHg (80.0-100.0) 12/23/16 09:50 HCO3 25.5 mEq/L (20.0-26.0) 12/23/16 09:50 Base Excess 2.0 mEq/L (-3.0-3.0) 12/23/16 09:50 O2 Saturation 98.0 % (92.0-100.0) 12/23/16 09:50 Alex Test YES 12/23/16 09:50 Vent Rate 12 12/23/16 09:50 Inspired O2 50 12/23/16 09:50 Tidal Volume 600 12/23/16 09:50 PEEP 8 12/23/16 09:50 Pressure (ins/psv/peep) NA 12/23/16 09:50 Critical Value E.CASAS 12/23/16 09:50 Sodium 147 mEq/L (136-145) H 12/23/16 04:50 Potassium 3.5 mEq/L (3.5-5.1) 12/23/16 04:50 Chloride 116 mEq/L (98-107) H 12/23/16 04:50 Carbon Dioxide 23.6 mEq/L (21.0-31.0) 12/23/16 04:50 Anion Gap 10.9 (7.0-16.0) 12/23/16 04:50 BUN 44 mg/dL (7-25) H 12/23/16 04:50 Creatinine 0.5 mg/dL (0.7-1.3) L 12/23/16 04:50 Est GFR ( Amer) > 60.0 ml/min (>90) 12/23/16 04:50 Est GFR (Non-Af Amer) > 60.0 ml/min 12/23/16 04:50 BUN/Creatinine Ratio 88.0 12/23/16 04:50 Glucose 201 mg/dL (70-105) H 12/23/16 04:50 POC Glucose 184 MG/DL (70 - 105) H 12/22/16 06:26 Hemoglobin A1c % 5.1 % (4.0-6.0) 12/22/16 04:40 Whole Bld Lactic Acid 5.69 mmol/L (0.60-1.99) H* 12/21/16 18:40 Calcium 8.9 mg/dL (8.6-10.3) 12/23/16 04:50 Phosphorus 2.4 mg/dL (2.5-5.0) L 12/22/16 04:40 Magnesium 2.4 mg/dL (1.9-2.7) 12/23/16 04:50 Total Bilirubin 1.3 mg/dL (0.3-1.0) H 12/21/16 07:55 AST 25 U/L (13-39) 12/21/16 07:55 ALT 11 U/L (7-52) 12/21/16 07:55 Alkaline Phosphatase 65 U/L (34-104) 12/21/16 07:55 Ammonia 75 umol/L (16-53) H 12/22/16 04:40 Creatine Kinase 26 U/L (30-223) L 12/21/16 07:55 B-Natriuretic Peptide 134.0 pg/mL (5.0-100.0) H 12/22/16 04:40 Total Protein 6.7 gm/dL (6.0-8.3) 12/21/16 07:55 Albumin 3.3 gm/dL (4.2-5.5) L 12/21/16 07:55 Globulin 3.4 gm/dL 12/21/16 07:55 Albumin/Globulin Ratio 1.0 (1.0-1.8) 12/21/16 07:55 TSH 2.71 uIU/ml (0.34-5.60) 12/22/16 04:40 Urine Source CATH 12/21/16 08:30 Urine Color YELLOW 12/21/16 08:30 Urine Clarity SL. CLOUDY (CLEAR) 12/21/16 08:30 Urine pH 6.0 12/21/16 08:30 Ur Specific [place] 1.025 (1.005-1.030) 12/21/16 08:30 Urine Protein 30 mg/dL (NEGATIVE) H 12/21/16 08:30 Urine Glucose (UA) NEGATIVE mg/dL (NEGATIVE) 12/21/16 08:30 Urine Ketones TRACE mg/dL (NEGATIVE) 12/21/16 08:30 Urine Blood NEGATIVE (NEGATIVE) 12/21/16 08:30 Urine Nitrate NEGATIVE (NEGATIVE) 12/21/16 08:30 Urine Bilirubin NEGATIVE (NEGATIVE) 12/21/16 08:30 Urine Urobilinogen 2.0 E.U./dL (0.2 - 1.0) 12/21/16 08:30 Ur Leukocyte Esterase NEGATIVE (NEGATIVE) 12/21/16 08:30 Urine RBC 0-1 /hpf (0-5) 12/21/16 08:30 Urine WBC 0-2 /hpf (0-5) 12/21/16 08:30 Ur Epithelial Cells RARE /lpf (FEW) 12/21/16 08:30 Urine Bacteria NONE SEEN /hpf (NONE SEEN) 12/21/16 08:30 Vancomycin Trough 28.3 ug/mL (10-20) H 12/22/16 09:50 Random Vancomycin 3.9 ug/mL (5.0-40.0) L 12/23/16 04:50 - Physical Exam Vitals and I&O: Vital Signs Temp 97.9 F 12/23/16 12:00 Pulse 77 12/23/16 12:00 Resp 19 12/23/16 12:00 BP 123/64 12/23/16 12:00 Pulse Ox 97 12/23/16 11:18 Intake & Output 12/22/16 12/23/16 12/23/16 18:59 06:59 18:59 Intake Total 1100 640 Output Total 1250 Balance 1100 -610 Weight (lbs) 184 lb 6.4 oz Intake: Intake, IV Amount 1100 100 D5-0.9%Ns 1,000 ml @ 100 1000 mls/hr IV .Q10H [facility] Rx#: [id number] Piperacillin Sodium/ 100 100 Tazobact 4.5 gm In Sodium Chloride 0.9% 100 ml @ 100 mls/hr IV Q8HR [facility] Rx #:[id number] Oral 150 Tube Feeding 240 Other 150 Output: Urine 1250 Other: # Bowel Movements 1 Stool Characteristics Liquid Active Medications: Current Medications Acetaminophen (Tylenol 650mg/20.3ml Suspension) 650 mg GT Q4H PRN PRN Reason: MILD PAIN OR TEMP >100 Stop: 02/19/17 10:59 Last Admin: 12/21/16 16:35 Dose: 650 mg Albuterol/Ipratropium (Duoneb Neb) 3 ml HHN Q4H PRN PRN Reason: Wheezing Stop: 02/19/17 12:18 Albuterol/Ipratropium (Duoneb Neb) 3 ml HHN Q4HRT [facility] Stop: 02/19/17 18:59 Last Admin: 12/23/16 11:18 Dose: 3 ml Ascorbic Acid (Vitamin C) 500 mg GT BID [facility] Stop: 02/19/17 16:59 Last Admin: 12/23/16 08:09 Dose: 500 mg Atenolol (Tenormin) 25 mg GT DAILY [facility] Stop: 02/20/17 08:59 Last Admin: 12/23/16 08:08 Dose: 25 mg Bisacodyl (Dulcolax 10 Mg Supp) 10 mg RC DAILY PRN PRN Reason: IF MOM INEFFECTIVE Stop: 02/19/17 10:59 Budesonide (Pulmicort) 0.5 mg HHN BIDRT [facility] Stop: 02/19/17 18:59 Last Admin: 12/23/16 07:34 Dose: 0.5 mg Calcium Carbonate (Tums) 1,250 mg GT DAILY [facility] Stop: 02/20/17 08:59 Last Admin: 12/23/16 08:10 Dose: 1,250 mg Chlorhexidine Gluconate (Peridex) 15 ml MM 0800,2000 [facility] Stop: 02/19/17 19:59 Last Admin: 12/23/16 07:56 Dose: 15 ml Dextromethorphan/Quinidine (Nuedexta 20mg-10mg) 1 cap GT BID [facility] Stop: 02/19/17 16:59 Last Admin: 12/23/16 08:24 Dose: 1 cap Heparin Sodium (Porcine) (Heparin) 5,000 units SUBQ Q12HR [facility] Stop: 02/19/17 20:59 Last Admin: 12/23/16 08:10 Dose: 5,000 units Propofol (Diprivan) 1,000 mg in 100 mls @ 14.125 mls/hr IV TITR [facility]; 30 MCG/KG/ MIN PRN Reason: Protocol Stop: 02/19/17 13:59 Piperacillin Sod/Tazobactam (Sod 4.5 gm/ Sodium Chloride) 100 mls @ 100 mls/hr IV Q8HR [facility] Stop: 02/19/17 20:59 Last Admin: 12/23/16 05:03 Dose: 100 mls/hr Dextrose/Sodium Chloride (D5-0.9%Ns) 1,000 mls @ 100 mls/hr IV .Q10H [facility] Stop: 02/19/17 13:04 Last Admin: 12/23/16 05:03 Dose: 100 mls/hr Vancomycin HCl 1 gm/ Sodium (Chloride) 250 mls @ 165 mls/hr IV Q12H [facility] Stop: 02/21/17 09:59 Last Admin: 12/23/16 10:54 Dose: 165 mls/hr Lactobacillus Rhamnosus (Culturelle) 1 each PO DAILY [facility] Stop: 02/22/17 08:59 Lorazepam (Ativan) 1 mg IV Q4HR PRN; Protocol PRN Reason: Seizure Stop: 02/19/17 13:05 Last Admin: 12/22/16 22:51 Dose: 1 mg Methylprednisolone Sodium Succinate (Solu-Medrol) 40 mg IV Q6HR [facility] Stop: 02/19/17 17:59 Last Admin: 12/23/16 11:16 Dose: 40 mg Miscellaneous (Calcium Carb/Magnesium Hydrox [Mi-Acid Ds Tablet]) 1 ctb GT QID [facility] Stop: 02/19/17 12:59 Last Admin: 12/21/16 17:48 Dose: Not Given Miscellaneous (Oxybenzone/Padimate O [Sunscreen Spf8 Lotion]) 120 ml TP PRN PRN PRN Reason: SUN EXPOSURE Miscellaneous (Vancomycin Iv Per Pharmacy) 1 ea [facility] DAILY PRN PRN Reason: PRN Stop: 02/19/17 10:59 Miscellaneous (Probiotic Screen) 1 ea MC PRN PRN PRN Reason: PROTOCOL Stop: 02/21/17 10:31 Morphine Sulfate (Morphine) 2 mg IVP Q4HR PRN PRN Reason: Pain (Moderate-Severe) Stop: 02/19/17 13:05 Last Admin: 12/21/16 17:34 Dose: 2 mg Ondansetron HCl (Zofran) 4 mg IV Q8H PRN PRN Reason: Nausea / Vomiting Stop: 02/19/17 13:05 Pantoprazole Sodium (Protonix) 40 mg GT DAILY [facility] Stop: 02/19/17 14:59 Last Admin: 12/23/16 08:09 Dose: 40 mg Petrolatum (Zinc Oxide) 1 appl TP Q12H PRN PRN Reason: G-TUBE AREA IRRITATION Stop: 02/19/17 10:59 Last Admin: 12/21/16 16:32 Dose: 1 appl Polyethylene Glycol (Miralax) 17 gm GT DAILY PRN PRN Reason: Constipation Stop: 02/19/17 10:59 Quetiapine Fumarate (Seroquel) 300 mg GT HS [facility] PRN Reason: Protocol Stop: 02/19/17 20:59 Quetiapine Fumarate (Seroquel) 200 mg GT DAILY [facility] PRN Reason: Protocol Stop: 02/20/17 08:59 Sodium Phosphate (Fleet Enema) 135 ml RC Q48H PRN PRN Reason: IF DULCOLAX INEFFECTIVE Stop: 02/19/17 10:59 Trazodone HCl (Desyrel) 25 mg GT HS [facility] PRN Reason: Protocol Stop: 02/19/17 20:59 Valproate Sodium (Depakene) 625 mg GT DAILY [facility] PRN Reason: Protocol Stop: 02/20/17 08:59 Last Admin: 12/23/16 08:09 Dose: 625 mg Valproate Sodium (Depakene) 750 mg GT HS [facility] PRN Reason: Protocol Stop: 02/19/17 20:59 Last Admin: 12/22/16 21:15 Dose: 750 mg Vitamin D (Vitamin D) 400 iu GT DAILY [facility] Stop: 02/20/17 08:59 Last Admin: 12/23/16 08:24 Dose: 400 iu General: alert HEENT: NC/AT, PERRLA Neck: Supple Lungs: CTAB Cardiovascular: RRR, Normal S1, Normal S2, without murmur Abdomen: soft non-tender Extremities: clear - Procedures Procedures: Procedures Procedure Code Date CHANGE FEEDING DEVICE IN UP INTEST TRACT, SENIOR TECHNICAL ANALYST APPROACH [id number] 07/06/[address] GASTROSTOMY TUBE 35873 02/16/09 INSERT EMERGENCY AIRWAY 30059 12/21/16 INSERTION OF ENDOTRACHEAL AIRWAY INTO [place], VIA OPENING [id number] 12/21/16 OTHER ENDOSCOPY OF SM INTEST 45.13 02/16/09 REPLACE GASTROSTOMY TUBE 97.02 02/16/09 RESPIRATORY VENTILATION, 24-96 CONSECUTIVE HOURS [id number] 12/21/16 VENT MGMT INPAT INIT DAY 12/21/16 VENT MGMT INPAT SUBQ 12/21/16 Internal Medicine Assmt/Plan - Assessment Assessment: Septic Shock PNA htn gastritis hypokalemia - Plan Plan: f/u labs ppi vent support continue ivabx cpm Nutritional Asmnt/Malnutr-PDOC - Dietary Evaluation Malnutrition Findings (Please click <Entered> for more info): Nutritional Asmnt/Malnutrition Start: 12/22/16 11: 36 Text: Status: Complete Freq: Document 12/22/16 11:36 GSUN (Rec: 12/22/16 12:01 [email or web address] [email or web address]) Nutritional Asmnt/Malnutrition Patient General Information Nutritional Screening High Risk Screening Diagnosis Septic shock, PNA, actue respiratory distress, HTN, gastritis Pertinent Medical Hx/Surgical Hx PEG, severe intellectual disability, HTN, dysphagia, anoxic encephalopathy, aspiration penumonia, impulse control disorder, insomnia, gastritis, bipolar disorder, pseudobulbar affect Subjective Information 61 year old male from SNF. RD trigger for blood glucose 515. Pt had shortness of breath, orally intubated, admitted to ICU. Pt was awake during visit , apepared anxious, made eye contacts with RD. No significant fat/muscle wasting noted. Current Diet Order/ Nutrition Support NPO except meds Pertinent Medications Vitamin C, Dulcolax, Tums, D5- 0.9, Solu-Medrol, Morphine, Nofran, Zinc Oxide, Miralax, Klor-Con, Seroquel, Propofol Diprivan, Fleet Enema, Vancomycin, Vitamin D Pertinent Labs 12/21: BUN 50H, glucose 144H, whole bld lactic acid 5.69H 12/22: BUN 43H, glucose 515H, A1c 5.1, potassium 3.3L, POC glucose 184H Nutritional Hx/Data Height 5 ft 6 in Height (Calculated Centimeters) 167.6 Current Weight (lbs) 184 lb 6.4 oz Weight (Calculated Kilograms) 83.6 Weight (Calculated Grams) 60662.4 [place] Body Weight 142lb Weight Status Overweight GI Symptoms Difficult in: Swallowing Food Allergies No Cultural/Ethnic/Congregational Belief Unknown. Usual diet at home [facility]: Jevity 1.2 75ml/ hr x 16hrs Skin Integrity/Comment: Mick 13. Skin intact. Estimated Nutritional Goals Calories/Kcals/Kg IBW 142lb/65kg, 30-35kcal/kg Kcals Calculated 1950-2275kcal Protein g/kg: IBW 1.4-1.6g Protein Calculated 91-104g Fluid: ml 1950-2275ml (1ml/kcal) Nutritional Problem 1. Problem Problem Increased protein and kcal needs related to Etiology hypermetabolic state aeb Signs/Symptoms: septic shock, PNA Intervention/Recommendation Comments 1. When medically stable to resume tube feeding, recommend initiating Fibersource at 45ml/hr to meet 60-70% of nutritional needs. Monitor tolerance and medical condition, when appropriate, increase 10ml/hr every 6hrs to goal rate 70ml/hr. Goal rate to provide 2016kcal and 91g protein. 2. Recommend 1 packet prosource QD via tube when reached goal rate to provide additional protein during hypermetabolic state. Expected Outcomes/Goals Expected Outcomes/Goals 1. Pt to meet 60-70% of nutritional needs on tube feeding with tolerance.
--- NOTE | 2016-12-23 12:52 | Diagnostic Imaging Report ---
Portable chest x-ray HISTORY: Pneumonia Compared with prior exam of December 22, 2016, persistent yet decreased infiltrate within the right lung. An endotracheal tube tip is approximately 3.5 cm above the esperanza. IMPRESSION: 1. Persistent yet slightly decreased infiltrate within the right lung.
[2016-12-23] MEDS: D5-0.45NS 1,000 ML IV SCH (13:01)
[2016-12-23] MEDS: Morphine Sulfate 2 mg/mL 1mL Syr IVP PRN (15:01)
[2016-12-23 15:11] LABS: FOLIC ACID 14.8 ng/mL (>3.0)
[2016-12-24] MEDS: methylPREDNISolone SS 40 mg Vial IV SCH ×4 (01:09→20:53)
[2016-12-24] MEDS: Albuterol/Ipratropium Neb 3 ML AERS HHN SCH ×6 (03:00→23:00)
[2016-12-24 06:51] LABS: HEMOGLOBIN 11.5 gm/dL (13.2-17.3)
[2016-12-24 07:09] LABS: ANION GAP 10.5 (7.0-16.0); BUN - UREA NITROGEN 46 mg/dL (7-25); BUN/CREATININE RATIO 76.7; CALCIUM SERUM 8.6 mg/dL (8.6-10.3); CARBON DIOXIDE 27.9 mEq/L (21.0-31.0); CHLORIDE 114 mEq/L (98-107); CREATININE - SERUM 0.6 mg/dL (0.7-1.3); GLUCOSE 171 mg/dL (70-105); POTASSIUM SERUM 3.4 mEq/L (3.5-5.1); SODIUM SERUM 149 mEq/L (136-145)
[2016-12-24 07:21] LABS: HEMATOCRIT 32.4 % (39.0-49.0); MEAN CELL VOLUME 92.6 fl (80-99); MEAN CORPUSCULAR HEMOGLOBIN 32.8 pg (26.0-30.0); MEAN CORPUSCULAR HGB CONC 35.4 pg (28.0-36.0); PLATELET COUNT 133 Th/cmm (150-400); RED CELL DISTRIBUTION WIDTH 13.1 % (11.5-20.0)
[2016-12-24] MEDS: Budesonide 0.5 Mg/2 mL Ud HHN SCH ×2 (07:26→19:00)
--- NOTE | 2016-12-24 07:30 | Progress Notes ---
PROBLEM LIST: 1. Acute respiratory failure. 2. Extensive pneumonia, right side. 3. Possibly mentally challenged issue with multiple psychiatric history. 4. Obstructive sleep apnea syndrome with history of dysphagia and G-tube. SYMPTOMS: The patient is awake, alert, has a mild to moderate ____ secretions ____, still on a ventilator, but assist-control mode of ventilator, not in acute distress. PHYSICAL EXAMINATION: VITAL SIGNS: Temperature is 97.9, BP is 141/60, saturation is 100% on 50% of oxygen. ENT: Shows no new changes. CHEST: Shows diminished air entry with occasional rhonchi. HEART: Regular. ABDOMEN: Soft, nontender. Slightly distended. LABORATORY DATA: White count is 15,000, hemoglobin 12.2 and ABG on PEEP of 8 on 50% of oxygen assist-control was okay and so far sputum ____ shows E. coli. Further ID is pending. Chest x-ray still shows mild to moderate infiltrate right side, left side is clear. ABG is okay on PEEP of 8 with 50% of oxygen. ASSESSMENT/IMPRESSION: The patient clinically seemingly doing much better. PLANS AND SUGGESTIONS: We will try to go and put on low support with SIMV with high pressure support and see how he does. If he does okay, not much secretion, may be extubated in next 24 hours and go from there. JOB# [id number]
[2016-12-24] MEDS: Chlorhexidine Gluconate 0.12% 15mL Mouthwash MM SCH ×2 (07:33→20:00)
[2016-12-24 07:59] LABS: WHITE BLOOD COUNT 15.3 Th/cmm (4.8-10.8)
[2016-12-24] MEDS: Lactobacillus Rhamnosus 10 Billion CFU Capsule PO SCH (08:27)
[2016-12-24] MEDS: Dextromethorphan/Quinidine 20mg/10mg Cap GT SCH ×2 (08:31→16:03)
[2016-12-24] MEDS: Pantoprazole 40 mg/Packet GT SCH (08:34)
[2016-12-24] MEDS: Multivitamin w/ Minerals Tab GT SCH (08:51)
[2016-12-24 09:07] LABS: pH 7.49 (7.35-7.45)
[2016-12-24 09:08] LABS: ABG SOURCE Arterial; ALLEN TEST YES; BE(B) 4.7 mEq/L (-3.0-3.0); FIO2 50; HCO3 28.2 mEq/L (20.0-26.0); MECH RATE 4; MECH VT 600; PS 15
[2016-12-24] MEDS: D5-0.45NS 1,000 ML IV SCH ×2 (09:18→13:32)
[2016-12-24 10:29] LABS: BAND NEUTROPHILE 17 % (0-10); MYELOCYTE 5 %; NEUTROPHILS 68 % (40-80); PLATELET ESTIMATE DECREASED PLATELETS (NORMAL); PLATELET MORPHOLOGY GIANT PLATELETS SEEN (NORMAL); TOTAL CELLS COUNTED 100
[2016-12-24] MEDS: Morphine Sulfate 2 mg/mL 1mL Syr IVP PRN (12:07)
[2016-12-24] MEDS ORDERED: Potassium Chloride 20 mEq ER Tab PO ONE (12:19)
--- NOTE | 2016-12-24 12:21 | Internal Medicine Prog Note ---
Internal Medicine Subjective - Subjective Patient seen and examined:: with staff, chart reviewed Patient is:: awake, non-verbal, non-interactive, other (on vent) Patient Complaints of:: congestion Per staff patient is:: no adverse event, gagging, confused Internal Medicine Objective - Results Result Diagrams: 12/24/16 06:10 12/24/16 06:10 Recent Labs: Laboratory Last Values WBC 15.3 Th/cmm (4.8-10.8) H 12/24/16 06:10 RBC 3.50 Mil/cmm (4.30-5.70) L 12/24/16 06:10 Hgb 11.5 gm/dL (13.2-17.3) L 12/24/16 06:10 Hct 32.4 % (39.0-49.0) L 12/24/16 06:10 MCV 92.6 fl (80-99) 12/24/16 06:10 MCH 32.8 pg (26.0-30.0) H 12/24/16 06:10 MCHC Differential 35.4 pg (28.0-36.0) 12/24/16 06:10 RDW 13.1 % (11.5-20.0) 12/24/16 06:10 Plt Count 133 Th/cmm (150-400) L 12/24/16 06:10 MPV 12.0 fl 12/24/16 06:10 Band Neutrophils % 17 % (0-10) H 12/24/16 06:10 Neutrophils (Manual) 68 % (40-80) 12/24/16 06:10 Lymphocytes 8 % (20-50) L 12/24/16 06:10 Monocytes 2 % (2-10) 12/24/16 06:10 Metamyelocytes 2 % (0-0) H 12/23/16 06:45 Myelocytes 5 % 12/24/16 06:10 Nucleated RBCs 1.0 % (0-0) H 12/23/16 06:45 Platelet Estimate DECREASED PLATELETS (NORMAL) 12/24/16 06:10 Platelet Morphology GIANT PLATELETS SEEN (NORMAL) 12/24/16 06:10 RBC Morph Micro Appear NORMAL (NORMAL) 12/24/16 06:10 PT 12.6 SECONDS (9.5-11.5) H 12/21/16 07:55 INR 1.20 (0.5-1.4) 12/21/16 07:55 PTT (Actin FS) 27.8 SECONDS (26.0-38.0) 12/21/16 07:55 Specimen Source Arterial 12/24/16 08:50 Sample Site Right Radial 12/24/16 08:50 pH 7.49 (7.35-7.45) H 12/24/16 08:50 pCO2 37.0 mmHg (35.0-45.0) 12/24/16 08:50 pO2 65.0 mmHg (80.0-100.0) L 12/24/16 08:50 HCO3 28.2 mEq/L (20.0-26.0) H 12/24/16 08:50 Base Excess 4.7 mEq/L (-3.0-3.0) H 12/24/16 08:50 O2 Saturation 94.0 % (92.0-100.0) 12/24/16 08:50 Alex Test YES 12/24/16 08:50 Vent Rate 4 12/24/16 08:50 Inspired O2 50 12/24/16 08:50 Tidal Volume 600 12/24/16 08:50 PEEP 3 12/24/16 08:50 Pressure (ins/psv/peep) 15 12/24/16 08:50 Critical Value E.CASAS 12/24/16 08:50 Sodium 149 mEq/L (136-145) H 12/24/16 06:10 Potassium 3.4 mEq/L (3.5-5.1) L 12/24/16 06:10 Chloride 114 mEq/L (98-107) H 12/24/16 06:10 Carbon Dioxide 27.9 mEq/L (21.0-31.0) 12/24/16 06:10 Anion Gap 10.5 (7.0-16.0) 12/24/16 06:10 BUN 46 mg/dL (7-25) H 12/24/16 06:10 Creatinine 0.6 mg/dL (0.7-1.3) L 12/24/16 06:10 Est GFR ( Amer) > 60.0 ml/min (>90) 12/24/16 06:10 Est GFR (Non-Af Amer) > 60.0 ml/min 12/24/16 06:10 BUN/Creatinine Ratio 76.7 12/24/16 06:10 Glucose 171 mg/dL (70-105) H 12/24/16 06:10 POC Glucose 184 MG/DL (70 - 105) H 12/22/16 06:26 Hemoglobin A1c % 5.1 % (4.0-6.0) 12/22/16 04:40 Whole Bld Lactic Acid 5.69 mmol/L (0.60-1.99) H* 12/21/16 18:40 Calcium 8.6 mg/dL (8.6-10.3) 12/24/16 06:10 Phosphorus 2.4 mg/dL (2.5-5.0) L 12/22/16 04:40 Magnesium 2.4 mg/dL (1.9-2.7) 12/23/16 04:50 Total Bilirubin 1.3 mg/dL (0.3-1.0) H 12/21/16 07:55 AST 25 U/L (13-39) 12/21/16 07:55 ALT 11 U/L (7-52) 12/21/16 07:55 Alkaline Phosphatase 65 U/L (34-104) 12/21/16 07:55 Ammonia 75 umol/L (16-53) H 12/22/16 04:40 Creatine Kinase 26 U/L (30-223) L 12/21/16 07:55 B-Natriuretic Peptide 134.0 pg/mL (5.0-100.0) H 12/22/16 04:40 Total Protein 6.7 gm/dL (6.0-8.3) 12/21/16 07:55 Albumin 3.3 gm/dL (4.2-5.5) L 12/21/16 07:55 Globulin 3.4 gm/dL 12/21/16 07:55 Albumin/Globulin Ratio 1.0 (1.0-1.8) 12/21/16 07:55 Vitamin B12 687 pg/mL (211-946) 12/22/16 04:40 Folic Acid 14.8 ng/mL (>3.0) 12/22/16 04:40 TSH 2.71 uIU/ml (0.34-5.60) 12/22/16 04:40 Urine Source CATH 12/21/16 08:30 Urine Color YELLOW 12/21/16 08:30 Urine Clarity SL. CLOUDY (CLEAR) 12/21/16 08:30 Urine pH 6.0 12/21/16 08:30 Ur Specific [place] 1.025 (1.005-1.030) 12/21/16 08:30 Urine Protein 30 mg/dL (NEGATIVE) H 12/21/16 08:30 Urine Glucose (UA) NEGATIVE mg/dL (NEGATIVE) 12/21/16 08:30 Urine Ketones TRACE mg/dL (NEGATIVE) 12/21/16 08:30 Urine Blood NEGATIVE (NEGATIVE) 12/21/16 08:30 Urine Nitrate NEGATIVE (NEGATIVE) 12/21/16 08:30 Urine Bilirubin NEGATIVE (NEGATIVE) 12/21/16 08:30 Urine Urobilinogen 2.0 E.U./dL (0.2 - 1.0) 12/21/16 08:30 Ur Leukocyte Esterase NEGATIVE (NEGATIVE) 12/21/16 08:30 Urine RBC 0-1 /hpf (0-5) 12/21/16 08:30 Urine WBC 0-2 /hpf (0-5) 12/21/16 08:30 Ur Epithelial Cells RARE /lpf (FEW) 12/21/16 08:30 Urine Bacteria NONE SEEN /hpf (NONE SEEN) 12/21/16 08:30 Vancomycin Trough 7.6 ug/mL (10-20) L 12/24/16 09:00 Random Vancomycin 3.9 ug/mL (5.0-40.0) L 12/23/16 04:50 - Physical Exam Vitals and I&O: Vital Signs Temp 97.9 F 12/24/16 10:00 Pulse 58 12/24/16 11:38 Resp 17 12/24/16 11:00 BP 93/54 12/24/16 11:00 Pulse Ox 97 12/24/16 12:00 Intake & Output 12/23/16 12/24/16 12/24/16 18:59 06:59 18:59 Intake Total 590 1590 120 Output Total 550 500 Balance 40 1090 120 Weight (lbs) 86.682 kg Intake: Intake, IV Amount 350 1350 100 D5-0.45NS 1,000 ml @ 70 1000 mls/hr IV .[id number] [facility] Rx #:[id number] Piperacillin Sodium/ 100 100 100 Tazobact 4.5 gm In Sodium Chloride 0.9% 100 ml @ 100 mls/hr IV Q8HR [facility] Rx #:[id number] Vancomycin HCl 1 gm In 250 250 Sodium Chloride 0.9% 250 ml @ 165 mls/hr IV Q12H [facility] Rx#:[id number] Tube Feeding 240 240 20 Output: Urine 550 500 Active Medications: Current Medications Acetaminophen (Tylenol 650mg/20.3ml Suspension) 650 mg GT Q4H PRN PRN Reason: MILD PAIN OR TEMP >100 Stop: 02/19/17 10:59 Last Admin: 12/21/16 16:35 Dose: 650 mg Albuterol/Ipratropium (Duoneb Neb) 3 ml HHN Q4H PRN PRN Reason: Wheezing Stop: 02/19/17 12:18 Albuterol/Ipratropium (Duoneb Neb) 3 ml HHN Q4HRT [facility] Stop: 02/19/17 18:59 Last Admin: 12/24/16 11:16 Dose: 3 ml Ascorbic Acid (Vitamin C) 500 mg GT BID [facility] Stop: 02/19/17 16:59 Last Admin: 12/24/16 08:32 Dose: 500 mg Atenolol (Tenormin) 25 mg GT DAILY [facility] Stop: 02/20/17 08:59 Last Admin: 12/24/16 08:32 Dose: 25 mg Bisacodyl (Dulcolax 10 Mg Supp) 10 mg RC DAILY PRN PRN Reason: IF MOM INEFFECTIVE Stop: 02/19/17 10:59 Budesonide (Pulmicort) 0.5 mg HHN BIDRT [facility] Stop: 02/19/17 18:59 Last Admin: 12/24/16 07:26 Dose: 0.5 mg Calcium Carbonate (Tums) 1,250 mg GT DAILY [facility] Stop: 02/20/17 08:59 Last Admin: 12/24/16 08:53 Dose: 1,250 mg Chlorhexidine Gluconate (Peridex) 15 ml MM 0800,2000 [facility] Stop: 02/19/17 19:59 Last Admin: 12/24/16 07:33 Dose: 15 ml Dextromethorphan/Quinidine (Nuedexta 20mg-10mg) 1 cap GT BID [facility] Stop: 02/19/17 16:59 Last Admin: 12/24/16 08:31 Dose: 1 cap Heparin Sodium (Porcine) (Heparin) 5,000 units SUBQ Q12HR [facility] Stop: 02/19/17 20:59 Last Admin: 12/24/16 09:00 Dose: 5,000 units Propofol (Diprivan) 1,000 mg in 100 mls @ 14.125 mls/hr IV TITR [facility]; 30 MCG/KG/ MIN PRN Reason: Protocol Stop: 02/19/17 13:59 Piperacillin Sod/Tazobactam (Sod 4.5 gm/ Sodium Chloride) 100 mls @ 100 mls/hr IV Q8HR [facility] Stop: 02/19/17 20:59 Last Infusion: 12/24/16 07:20 Dose: Infused Vancomycin HCl 1.25 gm/ Sodium (Chloride) 250 mls @ 165 mls/hr IV Q12H [facility] Stop: 02/22/17 10:59 Last Admin: 12/24/16 11:15 Dose: 165 mls/hr Lactobacillus Rhamnosus (Culturelle) 1 each PO DAILY [facility] Stop: 02/22/17 08:59 Last Admin: 12/24/16 08:27 Dose: 1 each Lorazepam (Ativan) 1 mg IV Q4HR PRN; Protocol PRN Reason: Seizure Stop: 02/19/17 13:05 Last Admin: 12/22/16 22:51 Dose: 1 mg Methylprednisolone Sodium Succinate (Solu-Medrol) 40 mg IV Q6HR [facility] Stop: 02/19/17 17:59 Last Admin: 12/24/16 11:12 Dose: 40 mg Miscellaneous (Calcium Carb/Magnesium Hydrox [Mi-Acid Ds Tablet]) 1 ctb GT QID [facility] Stop: 02/19/17 12:59 Last Admin: 12/21/16 17:48 Dose: Not Given Miscellaneous (Vancomycin Iv Per Pharmacy) 1 ea MC DAILY PRN PRN Reason: PRN Stop: 02/19/17 10:59 Miscellaneous (Probiotic Screen) 1 ea MC PRN PRN PRN Reason: PROTOCOL Stop: 02/21/17 10:31 Morphine Sulfate (Morphine) 2 mg IVP Q4HR PRN PRN Reason: Pain (Moderate-Severe) Stop: 02/19/17 13:05 Last Admin: 12/24/16 12:07 Dose: 2 mg Ondansetron HCl (Zofran) 4 mg IV Q8H PRN PRN Reason: Nausea / Vomiting Stop: 02/19/17 13:05 Pantoprazole Sodium (Protonix) 40 mg GT DAILY [facility] Stop: 02/19/17 14:59 Last Admin: 12/24/16 08:34 Dose: 40 mg Petrolatum (Zinc Oxide) 1 appl TP Q12H PRN PRN Reason: G-TUBE AREA IRRITATION Stop: 02/19/17 10:59 Last Admin: 12/21/16 16:32 Dose: 1 appl Polyethylene Glycol (Miralax) 17 gm GT DAILY PRN PRN Reason: Constipation Stop: 02/19/17 10:59 Quetiapine Fumarate (Seroquel) 300 mg GT HS [facility] PRN Reason: Protocol Stop: 02/19/17 20:59 Last Admin: 12/23/16 21:49 Dose: 300 mg Quetiapine Fumarate (Seroquel) 200 mg GT DAILY [facility] PRN Reason: Protocol Stop: 02/20/17 08:59 Last Admin: 12/24/16 08:53 Dose: 200 mg Sodium Phosphate (Fleet Enema) 135 ml RC Q48H PRN PRN Reason: IF DULCOLAX INEFFECTIVE Stop: 02/19/17 10:59 Trazodone HCl (Desyrel) 25 mg GT HS [facility] PRN Reason: Protocol Stop: 02/19/17 20:59 Last Admin: 12/24/16 07:23 Dose: 25 mg Valproate Sodium (Depakene) 625 mg GT DAILY [facility] PRN Reason: Protocol Stop: 02/20/17 08:59 Last Admin: 12/24/16 08:39 Dose: 625 mg Valproate Sodium (Depakene) 750 mg GT HS [facility] PRN Reason: Protocol Stop: 02/19/17 20:59 Last Admin: 12/23/16 21:50 Dose: 750 mg Vitamin D (Vitamin D) 400 iu GT DAILY [facility] Stop: 02/20/17 08:59 Last Admin: 12/24/16 08:35 Dose: 400 iu General: lethargic, demented HEENT: NC/AT, PERRLA, other (ett) Neck: Supple, No JVD Lungs: congested, rales, ronchi Cardiovascular: RRR, Normal S1, Normal S2 Abdomen: soft non-tender, globular, +GT Extremities: excoriation, contracture Neurological: no change, unable to follow command - Procedures Procedures: Procedures Procedure Code Date CHANGE FEEDING DEVICE IN UP INTEST TRACT, [employer] APPROACH [id number] 07/06/[address] GASTROSTOMY TUBE 97760 02/16/09 INSERT EMERGENCY AIRWAY 32540 12/21/16 INSERTION OF ENDOTRACHEAL AIRWAY INTO [place]HE[place], VIA OPENING [id number] 12/21/16 OTHER ENDOSCOPY OF SM INTEST 45.13 02/16/09 REPLACE GASTROSTOMY TUBE 97.02 02/16/09 RESPIRATORY VENTILATION, 24-96 CONSECUTIVE HOURS [id number] 12/21/16 VENT MGMT INPAT INIT DAY 51062 12/21/16 VENT MGMT INPAT SUBQ DAY 18566 12/21/16 Nutritional Asmnt/Malnutr-PDOC - Dietary Evaluation Malnutrition Findings (Please click <Entered> for more info): Nutritional Asmnt/Malnutrition Start: 12/22/16 11: 36 Text: Status: Complete Freq: Document 12/22/16 11:36 GSUN (Rec: 12/22/16 12:01 GSUN [email or web address]) Nutritional Asmnt/Malnutrition Patient General Information Nutritional Screening High Risk Screening Diagnosis Septic shock, PNA, actue respiratory distress, HTN, gastritis Pertinent Medical Hx/Surgical Hx PEG, severe intellectual disability, HTN, dysphagia, anoxic encephalopathy, aspiration penumonia, impulse control disorder, insomnia, gastritis, bipolar disorder, pseudobulbar affect Subjective Information 61 year old male from SNF. RD trigger for blood glucose 515. Pt had shortness of breath, orally intubated, admitted to ICU. Pt was awake during visit , apepared anxious, made eye contacts with RD. No significant fat/muscle wasting noted. Current Diet Order/ Nutrition Support NPO except meds Pertinent Medications Vitamin C, Dulcolax, Tums, D5- 0.9, Solu-Medrol, Morphine, Nofran, Zinc Oxide, Miralax, Klor-Con, Seroquel, Propofol Diprivan, Fleet Enema, Vancomycin, Vitamin D Pertinent Labs 12/21: BUN 50H, glucose 144H, whole bld lactic acid 5.69H 12/22: BUN 43H, glucose 515H, A1c 5.1, potassium 3.3L, POC glucose 184H Nutritional Hx/Data Height 1.68 m Height (Calculated Centimeters) 167.6 Current Weight (lbs) 83.642 kg Weight (Calculated Kilograms) 83.6 Weight (Calculated Grams) 28791.4 [place] Body Weight 142lb Weight Status Overweight GI Symptoms Difficult in: Swallowing Food Allergies No Cultural/Ethnic/Mormonism Belief Unknown. Usual diet at home [facility]: Jevity 1.2 75ml/ hr x 16hrs Skin Integrity/Comment: Mick 13. Skin intact. Estimated Nutritional Goals Calories/Kcals/Kg IBW 142lb/65kg, 30-35kcal/kg Kcals Calculated 1950-2275kcal Protein g/kg: IBW 1.4-1.6g Protein Calculated 91-104g Fluid: ml 1950-2275ml (1ml/kcal) Nutritional Problem 1. Problem Problem Increased protein and kcal needs related to Etiology hypermetabolic state aeb Signs/Symptoms: septic shock, PNA Intervention/Recommendation Comments 1. When medically stable to resume tube feeding, recommend initiating Fibersource at 45ml/hr to meet 60-70% of nutritional needs. Monitor tolerance and medical condition, when appropriate, increase 10ml/hr every 6hrs to goal rate 70ml/hr. Goal rate to provide 2016kcal and 91g protein. 2. Recommend 1 packet prosource QD via tube when reached goal rate to provide additional protein during hypermetabolic state. Expected Outcomes/Goals Expected Outcomes/Goals 1. Pt to meet 60-70% of nutritional needs on tube feeding with tolerance.
--- NOTE | 2016-12-24 12:22 | Internal Medicine Prog Note ---
Internal Medicine Objective - Results Result Diagrams: 12/24/16 06:10 12/24/16 06:10 Recent Labs: Laboratory Last Values WBC 15.3 Th/cmm (4.8-10.8) H 12/24/16 06:10 RBC 3.50 Mil/cmm (4.30-5.70) L 12/24/16 06:10 Hgb 11.5 gm/dL (13.2-17.3) L 12/24/16 06:10 Hct 32.4 % (39.0-49.0) L 12/24/16 06:10 MCV 92.6 fl (80-99) 12/24/16 06:10 MCH 32.8 pg (26.0-30.0) H 12/24/16 06:10 MCHC Differential 35.4 pg (28.0-36.0) 12/24/16 06:10 RDW 13.1 % (11.5-20.0) 12/24/16 06:10 Plt Count 133 Th/cmm (150-400) L 12/24/16 06:10 MPV 12.0 fl 12/24/16 06:10 Band Neutrophils % 17 % (0-10) H 12/24/16 06:10 Neutrophils (Manual) 68 % (40-80) 12/24/16 06:10 Lymphocytes 8 % (20-50) L 12/24/16 06:10 Monocytes 2 % (2-10) 12/24/16 06:10 Metamyelocytes 2 % (0-0) H 12/23/16 06:45 Myelocytes 5 % 12/24/16 06:10 Nucleated RBCs 1.0 % (0-0) H 12/23/16 06:45 Platelet Estimate DECREASED PLATELETS (NORMAL) 12/24/16 06:10 Platelet Morphology GIANT PLATELETS SEEN (NORMAL) 12/24/16 06:10 RBC Morph Micro Appear NORMAL (NORMAL) 12/24/16 06:10 PT 12.6 SECONDS (9.5-11.5) H 12/21/16 07:55 INR 1.20 (0.5-1.4) 12/21/16 07:55 PTT (Actin FS) 27.8 SECONDS (26.0-38.0) 12/21/16 07:55 Specimen Source Arterial 12/24/16 08:50 Sample Site Right Radial 12/24/16 08:50 pH 7.49 (7.35-7.45) H 12/24/16 08:50 pCO2 37.0 mmHg (35.0-45.0) 12/24/16 08:50 pO2 65.0 mmHg (80.0-100.0) L 12/24/16 08:50 HCO3 28.2 mEq/L (20.0-26.0) H 12/24/16 08:50 Base Excess 4.7 mEq/L (-3.0-3.0) H 12/24/16 08:50 O2 Saturation 94.0 % (92.0-100.0) 12/24/16 08:50 Alex Test YES 12/24/16 08:50 Vent Rate 4 12/24/16 08:50 Inspired O2 50 12/24/16 08:50 Tidal Volume 600 12/24/16 08:50 PEEP 3 12/24/16 08:50 Pressure (ins/psv/peep) 15 12/24/16 08:50 Critical Value E.CASAS 12/24/16 08:50 Sodium 149 mEq/L (136-145) H 12/24/16 06:10 Potassium 3.4 mEq/L (3.5-5.1) L 12/24/16 06:10 Chloride 114 mEq/L (98-107) H 12/24/16 06:10 Carbon Dioxide 27.9 mEq/L (21.0-31.0) 12/24/16 06:10 Anion Gap 10.5 (7.0-16.0) 12/24/16 06:10 BUN 46 mg/dL (7-25) H 12/24/16 06:10 Creatinine 0.6 mg/dL (0.7-1.3) L 12/24/16 06:10 Est GFR ( Amer) > 60.0 ml/min (>90) 12/24/16 06:10 Est GFR (Non-Af Amer) > 60.0 ml/min 12/24/16 06:10 BUN/Creatinine Ratio 76.7 12/24/16 06:10 Glucose 171 mg/dL (70-105) H 12/24/16 06:10 POC Glucose 184 MG/DL (70 - 105) H 12/22/16 06:26 Hemoglobin A1c % 5.1 % (4.0-6.0) 12/22/16 04:40 Whole Bld Lactic Acid 5.69 mmol/L (0.60-1.99) H* 12/21/16 18:40 Calcium 8.6 mg/dL (8.6-10.3) 12/24/16 06:10 Phosphorus 2.4 mg/dL (2.5-5.0) L 12/22/16 04:40 Magnesium 2.4 mg/dL (1.9-2.7) 12/23/16 04:50 Total Bilirubin 1.3 mg/dL (0.3-1.0) H 12/21/16 07:55 AST 25 U/L (13-39) 12/21/16 07:55 ALT 11 U/L (7-52) 12/21/16 07:55 Alkaline Phosphatase 65 U/L (34-104) 12/21/16 07:55 Ammonia 75 umol/L (16-53) H 12/22/16 04:40 Creatine Kinase 26 U/L (30-223) L 12/21/16 07:55 B-Natriuretic Peptide 134.0 pg/mL (5.0-100.0) H 12/22/16 04:40 Total Protein 6.7 gm/dL (6.0-8.3) 12/21/16 07:55 Albumin 3.3 gm/dL (4.2-5.5) L 12/21/16 07:55 Globulin 3.4 gm/dL 12/21/16 07:55 Albumin/Globulin Ratio 1.0 (1.0-1.8) 12/21/16 07:55 Vitamin B12 687 pg/mL (211-946) 12/22/16 04:40 Folic Acid 14.8 ng/mL (>3.0) 12/22/16 04:40 TSH 2.71 uIU/ml (0.34-5.60) 12/22/16 04:40 Urine Source CATH 12/21/16 08:30 Urine Color YELLOW 12/21/16 08:30 Urine Clarity SL. CLOUDY (CLEAR) 12/21/16 08:30 Urine pH 6.0 12/21/16 08:30 Ur Specific [place] 1.025 (1.005-1.030) 12/21/16 08:30 Urine Protein 30 mg/dL (NEGATIVE) H 12/21/16 08:30 Urine Glucose (UA) NEGATIVE mg/dL (NEGATIVE) 12/21/16 08:30 Urine Ketones TRACE mg/dL (NEGATIVE) 12/21/16 08:30 Urine Blood NEGATIVE (NEGATIVE) 12/21/16 08:30 Urine Nitrate NEGATIVE (NEGATIVE) 12/21/16 08:30 Urine Bilirubin NEGATIVE (NEGATIVE) 12/21/16 08:30 Urine Urobilinogen 2.0 E.U./dL (0.2 - 1.0) 12/21/16 08:30 Ur Leukocyte Esterase NEGATIVE (NEGATIVE) 12/21/16 08:30 Urine RBC 0-1 /hpf (0-5) 12/21/16 08:30 Urine WBC 0-2 /hpf (0-5) 12/21/16 08:30 Ur Epithelial Cells RARE /lpf (FEW) 12/21/16 08:30 Urine Bacteria NONE SEEN /hpf (NONE SEEN) 12/21/16 08:30 Vancomycin Trough 7.6 ug/mL (10-20) L 12/24/16 09:00 Random Vancomycin 3.9 ug/mL (5.0-40.0) L 12/23/16 04:50 - Physical Exam Vitals and I&O: Vital Signs Temp 97.9 F 12/24/16 10:00 Pulse 58 12/24/16 11:38 Resp 17 12/24/16 11:00 BP 93/54 12/24/16 11:00 Pulse Ox 97 12/24/16 12:00 Intake & Output 12/23/16 12/24/16 12/24/16 18:59 06:59 18:59 Intake Total 590 1590 120 Output Total 550 500 Balance 40 1090 120 Weight (lbs) 86.682 kg Intake: Intake, IV Amount 350 1350 100 D5-0.45NS 1,000 ml @ 70 1000 mls/hr IV .[id number] [facility] Rx #:[id number] Piperacillin Sodium/ 100 100 100 Tazobact 4.5 gm In Sodium Chloride 0.9% 100 ml @ 100 mls/hr IV Q8HR [facility] Rx #:[id number] Vancomycin HCl 1 gm In 250 250 Sodium Chloride 0.9% 250 ml @ 165 mls/hr IV Q12H [facility] Rx#:[id number] Tube Feeding 240 240 20 Output: Urine 550 500 Active Medications: Current Medications Acetaminophen (Tylenol 650mg/20.3ml Suspension) 650 mg GT Q4H PRN PRN Reason: MILD PAIN OR TEMP >100 Stop: 02/19/17 10:59 Last Admin: 12/21/16 16:35 Dose: 650 mg Albuterol/Ipratropium (Duoneb Neb) 3 ml HHN Q4H PRN PRN Reason: Wheezing Stop: 02/19/17 12:18 Albuterol/Ipratropium (Duoneb Neb) 3 ml HHN Q4HRT [facility] Stop: 02/19/17 18:59 Last Admin: 12/24/16 11:16 Dose: 3 ml Ascorbic Acid (Vitamin C) 500 mg GT BID [facility] Stop: 02/19/17 16:59 Last Admin: 12/24/16 08:32 Dose: 500 mg Atenolol (Tenormin) 25 mg GT DAILY [facility] Stop: 02/20/17 08:59 Last Admin: 12/24/16 08:32 Dose: 25 mg Bisacodyl (Dulcolax 10 Mg Supp) 10 mg RC DAILY PRN PRN Reason: IF MOM INEFFECTIVE Stop: 02/19/17 10:59 Budesonide (Pulmicort) 0.5 mg HHN BIDRT [facility] Stop: 02/19/17 18:59 Last Admin: 12/24/16 07:26 Dose: 0.5 mg Calcium Carbonate (Tums) 1,250 mg GT DAILY [facility] Stop: 02/20/17 08:59 Last Admin: 12/24/16 08:53 Dose: 1,250 mg Chlorhexidine Gluconate (Peridex) 15 ml MM 0800,1999 [facility] Stop: 02/19/17 19:59 Last Admin: 12/24/16 07:33 Dose: 15 ml Dextromethorphan/Quinidine (Nuedexta 20mg-10mg) 1 cap GT BID [facility] Stop: 02/19/17 16:59 Last Admin: 12/24/16 08:31 Dose: 1 cap Heparin Sodium (Porcine) (Heparin) 5,000 units SUBQ Q12HR [facility] Stop: 02/19/17 20:59 Last Admin: 12/24/16 09:00 Dose: 5,000 units Propofol (Diprivan) 1,000 mg in 100 mls @ 14.125 mls/hr IV TITR [facility]; 30 MCG/KG/ MIN PRN Reason: Protocol Stop: 02/19/17 13:59 Piperacillin Sod/Tazobactam (Sod 4.5 gm/ Sodium Chloride) 100 mls @ 100 mls/hr IV Q8HR [facility] Stop: 02/19/17 20:59 Last Infusion: 12/24/16 07:20 Dose: Infused Vancomycin HCl 1.25 gm/ Sodium (Chloride) 250 mls @ 165 mls/hr IV Q12H [facility] Stop: 02/22/17 10:59 Last Admin: 12/24/16 11:15 Dose: 165 mls/hr Dextrose/Sodium Chloride (D5-0.45ns) 1,000 mls @ 50 mls/hr IV .Q20H [facility] Stop: 02/22/17 12:18 Lactobacillus Rhamnosus (Culturelle) 1 each PO DAILY [facility] Stop: 02/22/17 08:59 Last Admin: 12/24/16 08:27 Dose: 1 each Lorazepam (Ativan) 1 mg IV Q4HR PRN; Protocol PRN Reason: Seizure Stop: 02/19/17 13:05 Last Admin: 12/22/16 22:51 Dose: 1 mg Methylprednisolone Sodium Succinate (Solu-Medrol) 40 mg IV Q6HR [facility] Stop: 02/19/17 17:59 Last Admin: 12/24/16 11:12 Dose: 40 mg Miscellaneous (Calcium Carb/Magnesium Hydrox [Mi-Acid Ds Tablet]) 1 ctb GT QID [facility] Stop: 02/19/17 12:59 Last Admin: 12/21/16 17:48 Dose: Not Given Miscellaneous (Vancomycin Iv Per Pharmacy) 1 ea MC DAILY PRN PRN Reason: PRN Stop: 02/19/17 10:59 Miscellaneous (Probiotic Screen) 1 ea MC PRN PRN PRN Reason: PROTOCOL Stop: 02/21/17 10:31 Morphine Sulfate (Morphine) 2 mg IVP Q4HR PRN PRN Reason: Pain (Moderate-Severe) Stop: 02/19/17 13:05 Last Admin: 12/24/16 12:07 Dose: 2 mg Ondansetron HCl (Zofran) 4 mg IV Q8H PRN PRN Reason: Nausea / Vomiting Stop: 02/19/17 13:05 Pantoprazole Sodium (Protonix) 40 mg GT DAILY [facility] Stop: 02/19/17 14:59 Last Admin: 12/24/16 08:34 Dose: 40 mg Petrolatum (Zinc Oxide) 1 appl TP Q12H PRN PRN Reason: G-TUBE AREA IRRITATION Stop: 02/19/17 10:59 Last Admin: 12/21/16 16:32 Dose: 1 appl Polyethylene Glycol (Miralax) 17 gm GT DAILY PRN PRN Reason: Constipation Stop: 02/19/17 10:59 Potassium Chloride (Klor-Con) 20 meq PO X1 ONE Stop: 12/24/16 12:20 Quetiapine Fumarate (Seroquel) 300 mg GT HS [facility] PRN Reason: Protocol Stop: 02/19/17 20:59 Last Admin: 12/23/16 21:49 Dose: 300 mg Quetiapine Fumarate (Seroquel) 200 mg GT DAILY [facility] PRN Reason: Protocol Stop: 02/20/17 08:59 Last Admin: 12/24/16 08:53 Dose: 200 mg Sodium Phosphate (Fleet Enema) 135 ml RC Q48H PRN PRN Reason: IF DULCOLAX INEFFECTIVE Stop: 02/19/17 10:59 Trazodone HCl (Desyrel) 25 mg GT HS [facility] PRN Reason: Protocol Stop: 02/19/17 20:59 Last Admin: 12/24/16 07:23 Dose: 25 mg Valproate Sodium (Depakene) 625 mg GT DAILY [facility] PRN Reason: Protocol Stop: 02/20/17 08:59 Last Admin: 12/24/16 08:39 Dose: 625 mg Valproate Sodium (Depakene) 750 mg GT HS [facility] PRN Reason: Protocol Stop: 02/19/17 20:59 Last Admin: 12/23/16 21:50 Dose: 750 mg Vitamin D (Vitamin D) 400 iu GT DAILY [facility] Stop: 02/20/17 08:59 Last Admin: 12/24/16 08:35 Dose: 400 iu - Procedures Procedures: Procedures Procedure Code Date CHANGE FEEDING DEVICE IN UP INTEST TRACT, [employer] APPROACH [id number] 07/06/[address] GASTROSTOMY TUBE 27917 02/16/09 INSERT EMERGENCY AIRWAY 27694 12/21/16 INSERTION OF ENDOTRACHEAL AIRWAY INTO TRACHEA, VIA OPENING [id number] 12/21/16 OTHER ENDOSCOPY OF SM INTEST 45.13 02/16/09 REPLACE GASTROSTOMY TUBE 97.02 02/16/09 RESPIRATORY VENTILATION, 24-96 CONSECUTIVE HOURS [id number] 12/21/16 VENT MGMT INPAT INIT DAY 82422 12/21/16 VENT MGMT INPAT SUBQ 98271 12/21/16 Internal Medicine Assmt/Plan - Assessment Assessment: Septic Shock- improved PNA htn gastritis hypokalemia - Plan Plan: cont on iv abx vent supposrt will try to wean off will confer w dr alexandra coon rn see orders Nutritional Asmnt/Malnutr-PDOC - Dietary Evaluation Malnutrition Findings (Please click <Entered> for more info): Nutritional Asmnt/Malnutrition Start: 12/22/16 11: 36 Text: Status: Complete Freq: Document 12/22/16 11:36 GSUN (Rec: 12/22/16 12:01 [email or web address] [email or web address]) Nutritional Asmnt/Malnutrition Patient General Information Nutritional Screening High Risk Screening Diagnosis Septic shock, PNA, actue respiratory distress, HTN, gastritis Pertinent Medical Hx/Surgical Hx PEG, severe intellectual disability, HTN, dysphagia, anoxic encephalopathy, aspiration penumonia, impulse control disorder, insomnia, gastritis, bipolar disorder, pseudobulbar affect Subjective Information 61 year old male from SNF. RD trigger for blood glucose 515. Pt had shortness of breath, orally intubated, admitted to ICU. Pt was awake during visit , apepared anxious, made eye contacts with RD. No significant fat/muscle wasting noted. Current Diet Order/ Nutrition Support NPO except meds Pertinent Medications Vitamin C, Dulcolax, Tums, D5- 0.9, Solu-Medrol, Morphine, Nofran, Zinc Oxide, Miralax, Klor-Con, Seroquel, Propofol Diprivan, Fleet Enema, Vancomycin, Vitamin D Pertinent Labs 12/21: BUN 50H, glucose 144H, whole bld lactic acid 5.69H 12/22: BUN 43H, glucose 515H, A1c 5.1, potassium 3.3L, POC glucose 184H Nutritional Hx/Data Height 1.68 m Height (Calculated Centimeters) 167.6 Current Weight (lbs) 83.642 kg Weight (Calculated Kilograms) 83.6 Weight (Calculated Grams) 92536.4 [place] Body Weight 142lb Weight Status Overweight GI Symptoms Difficult in: Swallowing Food Allergies No Cultural/Ethnic/Religion Belief Unknown. Usual diet at home [facility]: Jevity 1.2 75ml/ hr x 16hrs Skin Integrity/Comment: Mick Wiley. Skin intact. Estimated Nutritional Goals Calories/Kcals/Kg IBW 142lb/65kg, 30-35kcal/kg Kcals Calculated 1950-2275kcal Protein g/kg: IBW 1.4-1.6g Protein Calculated 91-104g Fluid: ml 1950-2275ml (1ml/kcal) Nutritional Problem 1. Problem Problem Increased protein and kcal needs related to Etiology hypermetabolic state aeb Signs/Symptoms: septic shock, PNA Intervention/Recommendation Comments 1. When medically stable to resume tube feeding, recommend initiating Fibersource at 45ml/hr to meet 60-70% of nutritional needs. Monitor tolerance and medical condition, when appropriate, increase 10ml/hr every 6hrs to goal rate 70ml/hr. Goal rate to provide 2016kcal and 91g protein. 2. Recommend 1 packet prosource QD via tube when reached goal rate to provide additional protein during hypermetabolic state. Expected Outcomes/Goals Expected Outcomes/Goals 1. Pt to meet 60-70% of nutritional needs on tube feeding with tolerance.
--- NOTE | 2016-12-25 02:28 | Progress Notes ---
PROBLEM LIST: 1. Acute extensive pneumonia, Escherichia coli. 2. Significant mentally challenged psychological issues. 3. Suspect obstructive sleep apnea syndrome. SYMPTOMS: Nil. The patient is awake, still ____ but not as much, no respiratory distress, SIMV 4 with pressure support appears to be ____ okay. PHYSICAL EXAMINATION: VITAL SIGNS: Temperature is 97.8, blood pressure 120/60 and saturation 95. ENT: Shows no new changes. CHEST: Shows diminished air entry with occasional rhonchi. HEART: Regular. ABDOMEN: Soft and nontender. EXTREMITIES: Shows no peripheral edema and the patient's belly is slightly distended. LABORATORY DATA: White count is 15.3 and hemoglobin 11.2. Blood gases shows pO2 of 65 on 50% of oxygen on SIMV 4 with pressure support. ASSESSMENT: The patient clinically is tolerating weaning so far good, but requires lot of toileting because of lot of secretions. PLANS AND SUGGESTIONS: We will go ahead and ____ CPAP with pressure support to see how he does and repeat chest x-ray and blood gases in the morning, appears stable enough, less secretion, may consider extubation and go from there. JOB# [id number]
[2016-12-25] MEDS: Morphine Sulfate 2 mg/mL 1mL Syr IVP PRN (02:44)
[2016-12-25] MEDS: Albuterol/Ipratropium Neb 3 ML AERS HHN SCH ×6 (03:00→23:18)
[2016-12-25 06:39] LABS: ANION GAP 10.2 (7.0-16.0); BUN - UREA NITROGEN 44 mg/dL (7-25); BUN/CREATININE RATIO 73.3; CALCIUM SERUM 8.2 mg/dL (8.6-10.3); CARBON DIOXIDE 28.3 mEq/L (21.0-31.0); CHLORIDE 113 mEq/L (98-107); CREATININE - SERUM 0.6 mg/dL (0.7-1.3); GLUCOSE 179 mg/dL (70-105); MAGNESIUM 2.2 mg/dL (1.9-2.7); POTASSIUM SERUM 3.5 mEq/L (3.5-5.1); SODIUM SERUM 148 mEq/L (136-145)
[2016-12-25] MEDS: Budesonide 0.5 Mg/2 mL Ud HHN SCH ×2 (07:18→19:11)
[2016-12-25] MEDS: Chlorhexidine Gluconate 0.12% 15mL Mouthwash MM SCH ×2 (07:49→21:00)
[2016-12-25] MEDS: methylPREDNISolone SS 40 mg Vial IV SCH ×2 (08:24→21:22)
[2016-12-25] MEDS: Lactobacillus Rhamnosus 10 Billion CFU Capsule PO SCH (08:25)
[2016-12-25] MEDS: Multivitamin w/ Minerals Tab GT SCH (08:25)
[2016-12-25] MEDS: Pantoprazole 40 mg/Packet GT SCH (08:25)
[2016-12-25] MEDS: Dextromethorphan/Quinidine 20mg/10mg Cap GT SCH ×2 (08:42→16:46)
[2016-12-25 09:01] LABS: HCO3 30.6 mEq/L (20.0-26.0); pH 7.47 (7.35-7.45)
[2016-12-25 09:02] LABS: ABG SOURCE Arterial; ALLEN TEST YES; BE(B) 6.3 mEq/L (-3.0-3.0); CRITICAL VALUES REPORTED BY SH; FIO2 50; MECH RATE 28; MECH VT 486; PS 15
--- NOTE | 2016-12-25 09:19 | Diagnostic Imaging Report ---
Portable chest x-ray HISTORY: Pneumonia, shortness of breath Compared with prior exam of December 23, 2016, the heart remains enlarged. Slight haziness of the interstitial lung markings. This may be related to a poor inspiration. Hazy infiltrate suggested in the right lung. Findings may be associated with pneumonia. A degree of congestive heart failure cannot be excluded. Clinical correlation is needed. An endotracheal tube tip is approximately 2.5 cm above the esperanza. IMPRESSION: 1. Allowing for differences in radiographic technique, little change from December 23, 2016 as noted above.
[2016-12-25] MEDS: D5-0.45NS 1,000 ML IV SCH (09:29)
[2016-12-25] MEDS: POLYETHYLENE GLYCOL 3350 17 GM PACK GT PRN (13:39)
--- NOTE | 2016-12-25 20:01 | Progress Notes ---
SERVICE: PULMONARY/CRITICAL CARE PROBLEM LIST: 1. Acute respiratory failure. 2. Extensive with E. coli. 3. Underlying history of mentally challenged issue with dysphagia in the past with G-tube. SYMPTOMS: Nil. Wants to get his , but no respiratory distress. The patient has been on pressor support for last 24 hours. PHYSICAL EXAMINATION: VITAL SIGNS: The patient's recorded vitals: Temperature is 98, heart rate is in 70s, blood pressure 120/60, saturation on 50% of oxygen, is mid 90s. NECK: Veins not visualized. CHEST: Shows diminished air entry with occasional rhonchi. HEART: Regular. ABDOMEN: Soft and nontender, slightly distended. LABORATORY DATA: Blood gases this morning, pO2 is 77 and this is on 50% of oxygen with pressor support of 15 cm. Chest x-ray, poor technique, not significantly changed, questionable haziness, but this could be taken at the bases. ASSESSMENT: The patient is clinically and optimally stable. PLANS AND SUGGESTIONS: Despite some secretions, we will go ahead and extubate the patient and give inhalation treatment and watch very closely post extubation and go from there. JOB# [id number]
[2016-12-26] MEDS: Albuterol/Ipratropium Neb 3 ML AERS HHN SCH ×4 (03:28→14:32)
[2016-12-26] MEDS: Budesonide 0.5 Mg/2 mL Ud HHN SCH (06:52)
[2016-12-26 08:04] LABS: ANION GAP 7.3 (7.0-16.0); BUN - UREA NITROGEN 33 mg/dL (7-25); CARBON DIOXIDE 32.5 mEq/L (21.0-31.0); CHLORIDE 108 mEq/L (98-107); CREATININE - SERUM 0.5 mg/dL (0.7-1.3); GLUCOSE 129 mg/dL (70-105); POTASSIUM SERUM 3.8 mEq/L (3.5-5.1); SODIUM SERUM 144 mEq/L (136-145)
[2016-12-26 08:07] LABS: HEMATOCRIT 31.3 % (39.0-49.0); HEMOGLOBIN 10.8 gm/dL (13.2-17.3); MEAN CELL VOLUME 93.7 fl (80-99); MEAN CORPUSCULAR HEMOGLOBIN 32.5 pg (26.0-30.0); MEAN CORPUSCULAR HGB CONC 34.7 pg (28.0-36.0); MEAN PLATELET VOLUME 10.5 fl; PLATELET COUNT 133 Th/cmm (150-400); RED BLOOD COUNT 3.34 Mil/cmm (4.30-5.70); RED CELL DISTRIBUTION WIDTH 13.3 % (11.5-20.0)
[2016-12-26 08:12] LABS: VANCOMYCIN TROUGH 13.6 ug/mL (10-20)
[2016-12-26 08:15] LABS: WHITE BLOOD COUNT 15.8 Th/cmm (4.8-10.8)
[2016-12-26 08:47] LABS: ABG SOURCE Arterial; BE(B) 10.4 mEq/L (-3.0-3.0); HCO3 34.3 mEq/L (20.0-26.0); pH 7.52 (7.35-7.45)
[2016-12-26 08:48] LABS: BAND NEUTROPHILE 6 % (0-10); NEUTROPHILS 65 % (40-80); TOTAL CELLS COUNTED 100
[2016-12-26 08:48] LABS: CRITICAL VALUES REPORTED BY SH
[2016-12-26 08:49] LABS: PLATELET ESTIMATE DECREASED PLATELETS (NORMAL); PLATELET MORPHOLOGY NORMAL (NORMAL)
[2016-12-26 08:51] LABS: FIO2 41
[2016-12-26] MEDS: methylPREDNISolone SS 40 mg Vial IV SCH ×2 (09:00→20:37)
[2016-12-26] MEDS: Pantoprazole 40 mg/Packet GT SCH (09:04)
[2016-12-26] MEDS: Multivitamin w/ Minerals Tab GT SCH (09:04)
[2016-12-26] MEDS: Lactobacillus Rhamnosus 10 Billion CFU Capsule PO SCH (09:04)
[2016-12-26] MEDS: Chlorhexidine Gluconate 0.12% 15mL Mouthwash MM SCH (09:05)
[2016-12-26] MEDS: Dextromethorphan/Quinidine 20mg/10mg Cap GT SCH ×2 (09:05→16:29)
--- NOTE | 2016-12-26 11:21 | Diagnostic Imaging Report ---
Portable chest x-ray HISTORY: Shortness of breath Compared with the prior exam of December 25, 2016, patient is rotated. There is a very poor inspiration. Nonetheless, there appears to be a degree of pulmonary vascular redistribution. Changes associated with a degree of congestive heart failure cannot be excluded. Evidence for small right pleural effusion. No definite focal processes are seen. IMPRESSION: 1. Limited exam associated with patient rotation and a poor inspiration 2. Suggestion of cardiomegaly and a small right pleural effusion. A degree of congestive heart failure cannot be excluded. Clinical correlation needed.
[2016-12-26] MEDS: POLYETHYLENE GLYCOL 3350 17 GM PACK GT PRN (16:28)
--- NOTE | 2016-12-26 16:31 | Internal Medicine Prog Note ---
Internal Medicine Subjective - Subjective Service Date: 12/26/16 (dc summary [id number]) Internal Medicine Objective - Results Result Diagrams: 12/26/16 07:00 12/26/16 07:00 Recent Labs: Laboratory Last Values WBC 15.8 Th/cmm (4.8-10.8) H 12/26/16 07:00 RBC 3.34 Mil/cmm (4.30-5.70) L 12/26/16 07:00 Hgb 10.8 gm/dL (13.2-17.3) L 12/26/16 07:00 Hct 31.3 % (39.0-49.0) L 12/26/16 07:00 MCV 93.7 fl (80-99) 12/26/16 07:00 MCH 32.5 pg (26.0-30.0) H 12/26/16 07:00 MCHC Differential 34.7 pg (28.0-36.0) 12/26/16 07:00 RDW 13.3 % (11.5-20.0) 12/26/16 07:00 Plt Count 133 Th/cmm (150-400) L 12/26/16 07:00 MPV 10.5 fl 12/26/16 07:00 Band Neutrophils % 6 % (0-10) 12/26/16 07:00 Neutrophils (Manual) 65 % (40-80) 12/26/16 07:00 Lymphocytes 18 % (20-50) L 12/26/16 07:00 Monocytes 10 % (2-10) 12/26/16 07:00 Metamyelocytes 2 % (0-0) H 12/23/16 06:45 Myelocytes 5 % 12/24/16 06:10 Nucleated RBCs 1.0 % (0-0) H 12/23/16 06:45 Atypical Lymphocytes 1 % 12/26/16 07:00 Platelet Estimate DECREASED PLATELETS (NORMAL) 12/26/16 07:00 Platelet Morphology NORMAL (NORMAL) 12/26/16 07:00 RBC Morph Micro Appear NORMAL (NORMAL) 12/26/16 07:00 PT 12.6 SECONDS (9.5-11.5) H 12/21/16 07:55 INR 1.20 (0.5-1.4) 12/21/16 07:55 PTT (Actin FS) 27.8 SECONDS (26.0-38.0) 12/21/16 07:55 Specimen Source Arterial 12/26/16 08:30 Sample Site RB 12/26/16 08:30 pH 7.52 (7.35-7.45) H 12/26/16 08:30 pCO2 42.0 mmHg (35.0-45.0) 12/26/16 08:30 pO2 64.0 mmHg (80.0-100.0) L 12/26/16 08:30 HCO3 34.3 mEq/L (20.0-26.0) H 12/26/16 08:30 Base Excess 10.4 mEq/L (-3.0-3.0) H 12/26/16 08:30 O2 Saturation 94.0 % (92.0-100.0) 12/26/16 08:30 Alex Test NA 12/26/16 08:30 Vent Rate NA 12/26/16 08:30 Inspired O2 41 12/26/16 08:30 Tidal Volume NA 12/26/16 08:30 PEEP NA 12/26/16 08:30 Pressure (ins/psv/peep) NA 12/26/16 08:30 Critical Value SH 12/26/16 08:30 Sodium 144 mEq/L (136-145) 12/26/16 07:00 Potassium 3.8 mEq/L (3.5-5.1) 12/26/16 07:00 Chloride 108 mEq/L (98-107) H 12/26/16 07:00 Carbon Dioxide 32.5 mEq/L (21.0-31.0) H 12/26/16 07:00 Anion Gap 7.3 (7.0-16.0) 12/26/16 07:00 BUN 33 mg/dL (7-25) H 12/26/16 07:00 Creatinine 0.5 mg/dL (0.7-1.3) L 12/26/16 07:00 Est GFR ( Amer) > 60.0 ml/min (>90) 12/26/16 07:00 Est GFR (Non-Af Amer) > 60.0 ml/min 12/26/16 07:00 BUN/Creatinine Ratio 66.0 12/26/16 07:00 Glucose 129 mg/dL (70-105) H 12/26/16 07:00 POC Glucose 184 MG/DL (70 - 105) H 12/22/16 06:26 Hemoglobin A1c % 5.1 % (4.0-6.0) 12/22/16 04:40 Whole Bld Lactic Acid 5.69 mmol/L (0.60-1.99) H* 12/21/16 18:40 Calcium 8.0 mg/dL (8.6-10.3) L 12/26/16 07:00 Phosphorus 2.4 mg/dL (2.5-5.0) L 12/22/16 04:40 Magnesium 2.2 mg/dL (1.9-2.7) 12/25/16 05:00 Total Bilirubin 1.3 mg/dL (0.3-1.0) H 12/21/16 07:55 AST 25 U/L (13-39) 12/21/16 07:55 ALT 11 U/L (7-52) 12/21/16 07:55 Alkaline Phosphatase 65 U/L (34-104) 12/21/16 07:55 Ammonia 75 umol/L (16-53) H 12/22/16 04:40 Creatine Kinase 26 U/L (30-223) L 12/21/16 07:55 B-Natriuretic Peptide 158.0 pg/mL (5.0-100.0) H 12/25/16 05:00 Total Protein 6.7 gm/dL (6.0-8.3) 12/21/16 07:55 Albumin 3.3 gm/dL (4.2-5.5) L 12/21/16 07:55 Globulin 3.4 gm/dL 12/21/16 07:55 Albumin/Globulin Ratio 1.0 (1.0-1.8) 12/21/16 07:55 Vitamin B12 687 pg/mL (211-946) 12/22/16 04:40 Folic Acid 14.8 ng/mL (>3.0) 12/22/16 04:40 TSH 2.71 uIU/ml (0.34-5.60) 12/22/16 04:40 Urine Source CATH 12/21/16 08:30 Urine Color YELLOW 12/21/16 08:30 Urine Clarity SL. CLOUDY (CLEAR) 12/21/16 08:30 Urine pH 6.0 12/21/16 08:30 Ur Specific [place] 1.025 (1.005-1.030) 12/21/16 08:30 Urine Protein 30 mg/dL (NEGATIVE) H 12/21/16 08:30 Urine Glucose (UA) NEGATIVE mg/dL (NEGATIVE) 12/21/16 08:30 Urine Ketones TRACE mg/dL (NEGATIVE) 12/21/16 08:30 Urine Blood NEGATIVE (NEGATIVE) 12/21/16 08:30 Urine Nitrate NEGATIVE (NEGATIVE) 12/21/16 08:30 Urine Bilirubin NEGATIVE (NEGATIVE) 12/21/16 08:30 Urine Urobilinogen 2.0 E.U./dL (0.2 - 1.0) 12/21/16 08:30 Ur Leukocyte Esterase NEGATIVE (NEGATIVE) 12/21/16 08:30 Urine RBC 0-1 /hpf (0-5) 12/21/16 08:30 Urine WBC 0-2 /hpf (0-5) 12/21/16 08:30 Ur Epithelial Cells RARE /lpf (FEW) 12/21/16 08:30 Urine Bacteria NONE SEEN /hpf (NONE SEEN) 12/21/16 08:30 Vancomycin Trough 13.6 ug/mL (10-20) 12/26/16 07:00 Random Vancomycin 3.9 ug/mL (5.0-40.0) L 12/23/16 04:50 - Physical Exam Vitals and I&O: Vital Signs Temp 96.5 F 12/26/16 12:00 Pulse 65 12/26/16 14:40 Resp 15 12/26/16 14:40 BP 105/63 12/26/16 14:00 Pulse Ox 94 12/26/16 14:40 Intake & Output 12/25/16 12/26/16 12/26/16 17:59 06:59 18:59 Intake Total 350 Output Total Balance 350 Intake: Intake, IV Amount 350 D5-0.45NS 1,000 ml @ 50 mls/hr IV .Q20H JESUS MANUEL Rx#: [id number] Piperacillin Sodium/ 100 Tazobact 4.5 gm In Sodium Chloride 0.9% 100 ml @ 100 mls/hr IV Q8HR JESUS MANUEL Rx #:[id number] Vancomycin HCl 1.25 gm In 250 Sodium Chloride 0.9% 250 ml @ 165 mls/hr IV Q12H JES[facility] MANUEL Rx#:[id number] Tube Feeding Other Output: Urine Active Medications: Current Medications Acetaminophen (Tylenol 650mg/20.3ml Suspension) 650 mg GT Q4H PRN PRN Reason: MILD PAIN OR TEMP >100 Stop: 02/19/17 10:59 Last Admin: 12/21/16 16:35 Dose: 650 mg Albuterol/Ipratropium (Duoneb Neb) 3 ml HHN Q4H PRN PRN Reason: Wheezing Stop: 02/19/17 12:18 Albuterol/Ipratropium (Duoneb Neb) 3 ml HHN Q4HRT [facility] Stop: 02/19/17 18:59 Last Admin: 12/26/16 14:32 Dose: 3 ml Ascorbic Acid (Vitamin C) 500 mg GT BID [facility] Stop: 02/19/17 16:59 Last Admin: 12/26/16 16:28 Dose: 500 mg Atenolol (Tenormin) 25 mg GT DAILY [facility] Stop: 02/20/17 08:59 Last Admin: 12/26/16 09:05 Dose: Not Given Bisacodyl (Dulcolax 10 Mg Supp) 10 mg RC DAILY PRN PRN Reason: IF MOM INEFFECTIVE Stop: 02/19/17 10:59 Budesonide (Pulmicort) 0.5 mg HHN BIDRT [facility] Stop: 02/19/17 18:59 Last Admin: 12/26/16 06:52 Dose: 0.5 mg Calcium Carbonate (Tums) 500 mg GT TID [facility] Stop: 02/20/17 08:59 Last Admin: 12/26/16 13:17 Dose: 500 mg Chlorhexidine Gluconate (Peridex) 15 ml MM 0800,2000 [facility] Stop: 02/19/17 19:59 Last Admin: 12/26/16 09:05 Dose: Not Given Dextromethorphan/Quinidine (Nuedexta 20mg-10mg) 1 cap GT BID [facility] Stop: 02/19/17 16:59 Last Admin: 12/26/16 16:29 Dose: 1 cap Heparin Sodium (Porcine) (Heparin) 5,000 units SUBQ Q12HR [facility] Stop: 02/19/17 20:59 Last Admin: 12/26/16 09:05 Dose: 5,000 units Propofol (Diprivan) 1,000 mg in 100 mls @ 14.125 mls/hr IV TITR [facility]ES[facility] MANUEL; 30 MCG/KG/ MIN PRN Reason: Protocol Stop: 02/19/17 13:59 Piperacillin Sod/Tazobactam (Sod 4.5 gm/ Sodium Chloride) 100 mls @ 100 mls/hr IV Q8HR [facility] Stop: 02/19/17 20:59 Last Infusion: 12/26/16 14:20 Dose: Infused Vancomycin HCl 1.25 gm/ Sodium (Chloride) 250 mls @ 165 mls/hr IV Q12H [facility] Stop: 02/22/17 10:59 Last Infusion: 12/26/16 11:30 Dose: Infused Dextrose/Sodium Chloride (D5-0.45ns) 1,000 mls @ 50 mls/hr IV .Q20H [facility] Stop: 02/22/17 12:18 Last Admin: 12/25/16 09:29 Dose: 50 mls/hr Lactobacillus Rhamnosus (Culturelle) 1 each PO DAILY [facility] Stop: 02/22/17 08:59 Last Admin: 12/26/16 09:04 Dose: 1 each Lorazepam (Ativan) 1 mg IV Q4HR PRN; Protocol PRN Reason: Seizure Stop: 02/19/17 13:05 Last Admin: 12/22/16 22:51 Dose: 1 mg Methylprednisolone Sodium Succinate (Solu-Medrol) 20 mg IV Q12HR [facility] Stop: 02/22/17 20:59 Last Admin: 12/26/16 09:00 Dose: 20 mg Miscellaneous (Vancomycin Iv Per Pharmacy) 1 ea MC DAILY PRN PRN Reason: PRN Stop: 02/19/17 10:59 Miscellaneous (Probiotic Screen) 1 ea MC PRN PRN PRN Reason: PROTOCOL Stop: 02/21/17 10:31 Morphine Sulfate (Morphine) 2 mg IVP Q4HR PRN PRN Reason: Pain (Moderate-Severe) Stop: 02/19/17 13:05 Last Admin: 12/25/16 02:44 Dose: 2 mg Ondansetron HCl (Zofran) 4 mg IV Q8H PRN PRN Reason: Nausea / Vomiting Stop: 02/19/17 13:05 Pantoprazole Sodium (Protonix) 40 mg GT DAILY [facility] Stop: 02/19/17 14:59 Last Admin: 12/26/16 09:04 Dose: 40 mg Petrolatum (Zinc Oxide) 1 appl TP Q12H PRN PRN Reason: G-TUBE AREA IRRITATION Stop: 02/19/17 10:59 Last Admin: 12/21/16 16:32 Dose: 1 appl Polyethylene Glycol (Miralax) 17 gm GT DAILY PRN PRN Reason: Constipation Stop: 02/19/17 10:59 Last Admin: 12/26/16 16:28 Dose: 17 gm Quetiapine Fumarate (Seroquel) 300 mg GT HS [facility] PRN Reason: Protocol Stop: 02/19/17 20:59 Last Admin: 12/25/16 21:20 Dose: 300 mg Quetiapine Fumarate (Seroquel) 200 mg GT DAILY [facility] PRN Reason: Protocol Stop: 02/20/17 08:59 Last Admin: 12/26/16 09:05 Dose: 200 mg Sodium Phosphate (Fleet Enema) 135 ml RC Q48H PRN PRN Reason: IF DULCOLAX INEFFECTIVE Stop: 02/19/17 10:59 Trazodone HCl (Desyrel) 25 mg GT HS [facility]UEL PRN Reason: Protocol Stop: 02/19/17 20:59 Last Admin: 12/25/16 21:20 Dose: 25 mg Valproate Sodium (Depakene) 625 mg GT DAILY [facility] PRN Reason: Protocol Stop: 02/20/17 08:59 Last Admin: 12/26/16 09:04 Dose: 625 mg Valproate Sodium (Depakene) 750 mg GT HS [facility]ES[facility] MANUEL PRN Reason: Protocol Stop: 02/19/17 20:59 Last Admin: 12/25/16 21:19 Dose: 750 mg Vitamin D (Vitamin D) 400 iu GT DAILY [facility] Stop: 02/20/17 08:59 Last Admin: 12/26/16 09:05 Dose: 400 iu - Procedures Procedures: Procedures Procedure Code Date CHANGE FEEDING DEVICE IN UP INTEST TRACT, BLUEPRINT BLOCKER APPROACH [id number] 07/06/[address] GASTROSTOMY TUBE 90127 02/16/09 INSERT EMERGENCY AIRWAY 48600 12/21/16 INSERTION OF ENDOTRACHEAL AIRWAY INTO [place]HEA, VIA OPENING [id number] 12/21/16 OTHER ENDOSCOPY OF SM INTEST 45.13 02/16/09 REPLACE GASTROSTOMY TUBE 97.02 02/16/09 RESPIRATORY VENTILATION, 24-96 CONSECUTIVE HOURS [id number] 12/21/16 VENT MGMT INPAT INIT DAY 12/21/16 VENT MGMT INPAT SUBQ DAY 12/21/16 Internal Medicine Assmt/Plan - Assessment Assessment: Septic Shock PNA htn gastritis hypokalemia Nutritional Asmnt/Malnutr-PDOC - Dietary Evaluation Malnutrition Findings (Please click <Entered> for more info): Nutritional Asmnt/Malnutrition Start: 12/22/16 11: 36 Text: Status: Complete Freq: Document 12/22/16 11:36 GSUN (Rec: 12/22/16 12:01 [email or web address] [email or web address]) Nutritional Asmnt/Malnutrition Patient General Information Nutritional Screening High Risk Screening Diagnosis Septic shock, PNA, actue respiratory distress, HTN, gastritis Pertinent Medical Hx/Surgical Hx PEG, severe intellectual disability, HTN, dysphagia, anoxic encephalopathy, aspiration penumonia, impulse control disorder, insomnia, gastritis, bipolar disorder, pseudobulbar affect Subjective Information 61 year old male from SNF. RD trigger for blood glucose 515. Pt had shortness of breath, orally intubated, admitted to ICU. Pt was awake during visit , apepared anxious, made eye contacts with RD. No significant fat/muscle wasting noted. Current Diet Order/ Nutrition Support NPO except meds Pertinent Medications Vitamin C, Dulcolax, Tums, D5- 0.9, Solu-Medrol, Morphine, Nofran, Zinc Oxide, Miralax, Klor-Con, Seroquel, Propofol Diprivan, Fleet Enema, Vancomycin, Vitamin D Pertinent Labs 12/21: BUN 50H, glucose 144H, whole bld lactic acid 5.69H 12/22: BUN 43H, glucose 515H, A1c 5.1, potassium 3.3L, POC glucose 184H Nutritional Hx/Data Height 5 ft 6 in Height (Calculated Centimeters) 167.6 Current Weight (lbs) 184 lb 6.4 oz Weight (Calculated Kilograms) 83.6 Weight (Calculated Grams) 83324.4 [place] Body Weight 142lb Weight Status Overweight GI Symptoms Difficult in: Swallowing Food Allergies No Cultural/Ethnic/Catholic Belief Unknown. Usual diet at home [facility]: Jevity 1.2 75ml/ hr x 16hrs Skin Integrity/Comment: Mick Wiley. Skin intact. Estimated Nutritional Goals Calories/Kcals/Kg IBW 142lb/65kg, 30-35kcal/kg Kcals Calculated 1950-2275kcal Protein g/kg: IBW 1.4-1.6g Protein Calculated 91-104g Fluid: ml 1950-2275ml (1ml/kcal) Nutritional Problem 1. Problem Problem Increased protein and kcal needs related to Etiology hypermetabolic state aeb Signs/Symptoms: septic shock, PNA Intervention/Recommendation Comments 1. When medically stable to resume tube feeding, recommend initiating Fibersource at 45ml/hr to meet 60-70% of nutritional needs. Monitor tolerance and medical condition, when appropriate, increase 10ml/hr every 6hrs to goal rate 70ml/hr. Goal rate to provide 2016kcal and 91g protein. 2. Recommend 1 packet prosource QD via tube when reached goal rate to provide additional protein during hypermetabolic state. Expected Outcomes/Goals Expected Outcomes/Goals 1. Pt to meet 60-70% of nutritional needs on tube feeding with tolerance.
--- NOTE | 2016-12-26 23:37 | Progress Notes ---
PROBLEM LIST: 1. Acute respiratory failure, improved. 2. Escherichia coli pneumonia, right side, improving. 3. Metabolic syndrome with obstructive sleep apnea syndrome associated with mentally challenged issue. The patient was extubated. SYMPTOMS: Nil, feeling okay. No specific new symptoms. PHYSICAL EXAMINATION: VITAL SIGNS: The patient's recorded vitals: Temperature is 98, pulse is 70s, blood pressure 105/63, saturation is 90% to 94% on 5 liters. NECK: Veins not visualized. CHEST: Shows diminished air entry with occasional rhonchi. HEART: Regular. ABDOMEN: Soft, nontender. Slightly distended. LABORATORY DATA: The patient's white count is 15.8, ABG; ____ was 64 on 41% of oxygen. Chest x-ray shows slight improvement in infiltrate, right side with some haziness in the bases, ____ this could be technique. ASSESSMENT: The patient clinically overall doing much better. PLANS AND SUGGESTIONS: We will go ahead and continue current treatment, okay to move to the step-down unit and repeat chest x-ray, blood gases tomorrow. JOB# [id number]
--- NOTE | 2016-12-26 23:57 | Discharge Summary ---
FINAL DIAGNOSES: Septic shock, pneumonia, hypertension, gastritis, hypokalemia. HISTORY OF PRESENT ILLNESS: This is a 61-year-old male, who is a resident of [facility], who is brought here to [facility] for 1-day history of severe shortness of breath. The patient had oxygen saturation in the mid 70s on room air. The patient was orally intubated and sedated in the ER; for this reason, the patient was admitted to the ICU unit. PHYSICAL EXAMINATION: GENERAL: The patient is awake, alert, in no apparent distress. VITAL SIGNS: Stable. HEAD: Normocephalic, atraumatic. NECK: Supple. No mass. LUNGS: Few rhonchi. HEART: Regular rate and rhythm. ABDOMEN: Soft, nontender. HOSPITAL COURSE: During the hospital stay, the patient was admitted to the ICU unit. The patient was orally intubated and mildly sedated in the ER. The patient had a consultation with Dr. Clarence Howard and also Dr. Clarence Howard was on the case. The patient had a chest x-ray done upon admission and the impression is right pleural effusion with right lung infiltrate. The patient was kept on IV antibiotics of vancomycin and Zosyn. The patient had a repeat chest x-ray on 12/26/2016 and the impression is suggestion of cardiomegaly and a small right pleural effusion, degree of CHF cannot be excluded. The patient was later then stabilized and was extubated. The patient tolerated well. The patient has been afebrile. Due to continuation of care, the patient will be discharged to [facility]. CONDITION UPON DISCHARGE: Fair. DISPOSITION: [facility]. JOB# [id number]
[2016-12-29 10:30] LABS: ABG SOURCE Arterial; ALLEN TEST Positive; HCO3 27.4 mEq/L (20.0-26.0); pH 7.49 (7.35-7.45)
[2016-12-29 10:31] LABS: FIO2 100; MECH RATE 20; MECH VT 600
== END 2016-12-26 22:10 | DRG 870 ==
LOC: ER 07:34 → ICU 09:10
PROVIDERS: ADMIT Internal Medicine; ATTEND Internal Medicine
PROC: 5A1955Z Respiratory Ventilation, Greater than 96 Consecutive Hours (ICD-10-PCS; principal; 2016-12-21)
PROC: 0BH17EZ Insertion of Endotracheal Airway into Trachea, Via Natural or Artificial Opening (ICD-10-PCS; 2016-12-21)
PROC: 02H633Z Insertion of Infusion Device into Right Atrium, Percutaneous Approach (ICD-10-PCS; 2016-12-21)
DX: A41.9 Sepsis, unspecified organism (principal); J96.01 Acute respiratory failure with hypoxia; R65.21 Severe sepsis with septic shock; J69.0 Pneumonitis due to inhalation of food and vomit; J90 Pleural effusion, not elsewhere classified; R13.10 Dysphagia, unspecified; E88.81 Metabolic syndrome and other insulin resistance; F72 Severe intellectual disabilities; I10 Essential (primary) hypertension; K29.70 Gastritis, unspecified, without bleeding; G47.00 Insomnia, unspecified; F31.9 Bipolar disorder, unspecified; E87.6 Hypokalemia; G47.33 Obstructive sleep apnea (adult) (pediatric); Z93.1 Gastrostomy status
CPT/HCPCS: 36415-UA; 36600-90; 71010-TC; 80048-TC; 80053-TC; 80202-TC; 81001-TC; 82140-TC; 82550-TC; 82607-90; 82746-90; 82803-TC; 82948-90; 83036-90; 83605; 83735-TC; 83880-TC; 84100-TC; 84443-TC; 85007-TC; 85027-TC; 85610-TC; 85730-TC; 87070; 90782; 90799; 93005; 94002; 94003; 94640; 94660; 94664; 96375; 99201; C1751; J0330; J1644; J2001; J2060; J2270; J2543; J2704; J2920; J2930; J3370; J3475; J3480; J7030; J7040; J7042; J7613; Z7502; Z7610

== ENCOUNTER 2017-05-29 05:09 | Inpatient (IN) | payer MEDICARE, MEDICAID ==
--- NOTE | 2017-05-29 05:48 | ED Physician Chart ---
Chief Complaint/HPI - Patient Information Date Seen:: 05/29/17 Time Seen:: 05:23 Chief Complaint:: ACUTE SOB History of Present Illness:: THIS IS A CHRONICALLY ILL 61 YO SNF PATIENT WITH RECURRENT EPISODES OF ACUTE SOB. HE HAS A HISTORY OF HYPERTENSION, PSYCHOSIS, DEMENTIA, ANOXIC ENCEPHALOPATHY. Allergies:: Allergies Allergy/AdvReac Type Severity Reaction Status Date / Time No Known Allergies Allergy Verified 05/29/17 05:28 Vitals:: Vital Signs - 8 hr 05/29/17 05:15 Temp 98.4 F HR 132 RR 38 BP 122/74 O2 Sat % 81 Historian:: EMS, Medical Records Review:: Nurse's Note Reviewed, Old Chart Reviewed Review of Systems - Review of Systems General/Constitutional: Other (THIS PATIENT CANNOT GIVE A REVIEW OF SYSTEMS.) Past Medical History - Past Medical History Obtainable: Yes Past Medical History: HTN, CAD, CHF, Asthma/COPD, CVA/TIA, PUD/GERD, Dementia Family History: None Social History: Non Smoker, No Alcohol, No Drug Use, Care Facility Surgical History: PEG/GTube Psychiatricy History: Bipolar, Dementia Family Medical History - Family Member Mother History Unknown: Yes Ethnicity: Unknown Living Status: Unknown Hx Family Cancer: (unknown) Hx Family Coronary Artery Disease: (unknown) Hx Family Congestive Heart Failure: (unknown) Hx Family Hypertension: (unknown) Hx Family Stroke: (unknown) Hx Family Diabetes: (unknown) Hx Family Seizures: (unknown) Hx Family Dementia: (unknown) Hx Family AIDS: (unknwn) Hx Family HIV: Yes Hx Family COPD: (unknown) Hx Family Hepatitis: (unknown) Hx Family Psychiatric Problems: (unknown) Hx Family Tuberculosis: (unknown) Physical Exam - Physical Examination General/Constitutional: Awake, Well-developed, well-nourished, Alert, No distress, GCS 15, Non-toxic appearing, Ambulatory Other Gen/Cons comments:: LETHARGIC AND CONFUSED Head: Atraumatic Eyes: Lids, conjuctiva normal, PERRL, EOMI Skin: Nl inspection, No rash, No skin lesions, No ecchymosis, Well hydrated, No lymphadenopathy ENMT: External ears, nose nl, Nasal exam nl, Lips, teeth, gums nl Neck: Nontender, Full ROM w/o pain, No JVD, No nuchal rigidity, No bruit, No mass, No stridor Respiratory: Nl effort/Exclusion, Clear to Auscultation, No Wheeze/Rhonchi/Rales Other Respiratory comments:: BILATERAL RALES AND RIGHT SIDED PLEURAL EFFUSIO, A FEW RHONCHI HEARD BILATERALLY. Cardio Vascular: RRR, No murmur, gallop, rubs, NL S1 S2 Other Cardio Vascular comments:: SINUS TACHYCARDIA GI: No tenderness/rebounding/guarding, No organomegaly, No hernia, Normal BS's, No mass/bruits, No McBurney tenderness Other GI comments:: THERE IS A DISTENDED ABDOMEN WITH G-TUBE IN PLACE AND FUNCTIONING. : No CVA tenderness Extremities: No tenderness or effusion, Full ROM, normal strength in all extremities, No edema, Normal digits & nails Neuro/Psych: Alert/oriented, DTR's symmetric, Normal sensory exam, Normal motor strength, Normal gait, No focal deficits Other Neuro/Psych comments:: PT IS UNABLE TO THINK Misc: normal gait, Normal back, No paraspinal tenderness Assessment - Assessment General Assessment: ACUTE RESPIRATORY FAILURE ED Septic Shock - . Is Septic Shock (SBP<90, OR Lactate>4 mmol\L) present?: No - <6hrs of presentation: Vital Signs: Vital Signs - 8 hr 05/29/17 05:15 Temp 98.4 F HR 132 RR 38 BP 122/74 O2 Sat % 81 Reassessment (Disposition) - Diagnosis Diagnosis:: RESPIRATORY FAILURE HYPOXEMIA ANOXIC ENCEPHALOPATHY - Patient Disposition Discharge/Transfer:: Acute Care w/in this hosp Admitting Medical Physician:: Federico Thomas Condition at Disposition:: Improved ED Discharge Plan - Patient Disposition Admit/Discharge/Transfer: Acute Care w/in this hosp Condition at Disposition: Improved
[2017-05-29 06:12] LABS: MEAN CELL VOLUME 93.9 fl (80-99); MEAN CORPUSCULAR HEMOGLOBIN 32.3 pg (26.0-30.0); MEAN CORPUSCULAR HGB CONC 34.4 pg (28.0-36.0); MEAN PLATELET VOLUME 10.7 fl; PLATELET COUNT 137 Th/cmm (150-400); RED BLOOD COUNT 5.08 Mil/cmm (4.30-5.70); RED CELL DISTRIBUTION WIDTH 12.6 % (11.5-20.0)
[2017-05-29 06:13] LABS: pH 7.51 (7.35-7.45)
[2017-05-29 06:14] LABS: ABG SOURCE Arterial; BE(B) 2.9 mEq/L (-3.0-3.0); CRITICAL VALUES REPORTED BY SH; FIO2 100; HCO3 27.1 mEq/L (20.0-26.0)
[2017-05-29 06:21] LABS: HEMATOCRIT 47.7 % (39.0-49.0); HEMOGLOBIN 16.4 gm/dL (13.2-17.3); WHITE BLOOD COUNT 8.6 Th/cmm (4.8-10.8)
[2017-05-29 06:31] LABS: INR 0.98 (0.5-1.4); PROTHROMBIN TIME (TEST) 10.2 SECONDS (9.5-11.5)
[2017-05-29 06:32] LABS: BAND NEUTROPHILE 6 % (0-10); NEUTROPHILS 56 % (40-80); TOTAL CELLS COUNTED 100
[2017-05-29 06:33] LABS: PLATELET ESTIMATE DECREASED PLATELETS (NORMAL); PLATELET MORPHOLOGY NORMAL (NORMAL)
[2017-05-29 06:35] LABS: ALB/GLOB RATIO 1.2 (1.0-1.8); ALKALINE PHOSPHATASE 83 U/L (34-104); ANION GAP 12.2 (7.0-16.0); BILIRUBIN,TOTAL 0.8 mg/dL (0.3-1.0); BUN - UREA NITROGEN 34 mg/dL (7-25); BUN/CREATININE RATIO 37.8; CALCIUM SERUM 9.5 mg/dL (8.6-10.3); CARBON DIOXIDE 23.1 mEq/L (21.0-31.0); CHLORIDE 104 mEq/L (98-107); CREATININE - SERUM 0.9 mg/dL (0.7-1.3); GLUCOSE 129 mg/dL (70-105); POTASSIUM SERUM 3.3 mEq/L (3.5-5.1); SGOT 20 U/L (13-39); SGPT/ALT 13 U/L (7-52); SODIUM SERUM 136 mEq/L (136-145)
[2017-05-29 06:36] LABS: CHOLESTEROL 146 mg/dL (<200); TRIGLYCERIDES 83 mg/dL (<150)
[2017-05-29] MEDS ORDERED: cefTRIAXone 1 GM in Sodium Chloride 0.9% 50 ML IV ONE (07:09)
[2017-05-29] MEDS ORDERED: Azithromycin 500 MG in Sodium Chloride 0.9% 250 ML IV ONE (07:10)
[2017-05-29] MEDS ORDERED: Potassium Chloride 20 mEq ER Tab PO ONE ×2 (07:13→07:35)
[2017-05-29] MEDS ORDERED: Sodium Chloride 0.45% 1,000 ML IV ONE (07:14)
[2017-05-29] MEDS ORDERED: Potassium Chloride Elixir 20 mEq /15 mL UDC ONE ×2 (07:53→08:58)
[2017-05-29] MEDS ORDERED: ZINC OXIDE 13% TP PRN (08:25)
[2017-05-29] MEDS ORDERED: POLYETHYLENE GLYCOL 3350 17 GM PACK GT PRN (08:25)
[2017-05-29] MEDS ORDERED: Fleet Enema 135 mL RC PRN (08:25)
[2017-05-29] MEDS ORDERED: Magnesium Hydroxide (MOM) 30 mL UDC GT PRN (08:25)
--- NOTE | 2017-05-29 08:25 | Internal Medicine Prog Note ---
Internal Medicine Subjective - Subjective Service Date: 05/29/17 (dictated [id number]) Internal Medicine Objective - Results Result Diagrams: 05/29/17 05:45 05/29/17 05:45 Recent Labs: Laboratory Last Values WBC 8.6 Th/cmm (4.8-10.8) D 05/29/17 05:45 RBC 5.08 Mil/cmm (4.30-5.70) 05/29/17 05:45 Hgb 16.4 gm/dL (13.2-17.3) D 05/29/17 05:45 Hct 47.7 % (39.0-49.0) D 05/29/17 05:45 MCV 93.9 fl (80-99) 05/29/17 05:45 MCH 32.3 pg (26.0-30.0) H 05/29/17 05:45 MCHC Differential 34.4 pg (28.0-36.0) 05/29/17 05:45 RDW 12.6 % (11.5-20.0) 05/29/17 05:45 Plt Count 137 Th/cmm (150-400) L 05/29/17 05:45 MPV 10.7 fl 05/29/17 05:45 Band Neutrophils % 6 % (0-10) 05/29/17 05:45 Neutrophils (Manual) 56 % (40-80) 05/29/17 05:45 Lymphocytes 24 % (20-50) 05/29/17 05:45 Monocytes 14 % (2-10) H 05/29/17 05:45 Platelet Estimate DECREASED PLATELETS (NORMAL) 05/29/17 05:45 Platelet Morphology NORMAL (NORMAL) 05/29/17 05:45 RBC Morph Micro Appear NORMAL (NORMAL) 05/29/17 05:45 PT 10.2 SECONDS (9.5-11.5) 05/29/17 05:45 INR 0.98 (0.5-1.4) 05/29/17 05:45 PTT (Actin FS) 21.5 SECONDS (26.0-38.0) L 05/29/17 05:45 Specimen Source Arterial 05/29/17 05:13 Sample Site LB 05/29/17 05:13 pH 7.51 (7.35-7.45) H 05/29/17 05:13 pCO2 32.0 mmHg (35.0-45.0) L 05/29/17 05:13 pO2 70.0 mmHg (80.0-100.0) L 05/29/17 05:13 HCO3 27.1 mEq/L (20.0-26.0) H 05/29/17 05:13 Base Excess 2.9 mEq/L (-3.0-3.0) 05/29/17 05:13 O2 Saturation 95.0 % (92.0-100.0) 05/29/17 05:13 Alex Test NA 05/29/17 05:13 Vent Rate NA 05/29/17 05:13 Inspired O2 100 05/29/17 05:13 Tidal Volume NA 05/29/17 05:13 PEEP NA 05/29/17 05:13 Pressure (ins/psv/peep) NA 05/29/17 05:13 Critical Value SH 05/29/17 05:13 Sodium 136 mEq/L (136-145) 05/29/17 05:45 Potassium 3.3 mEq/L (3.5-5.1) L 05/29/17 05:45 Chloride 104 mEq/L (98-107) 05/29/17 05:45 Carbon Dioxide 23.1 mEq/L (21.0-31.0) 05/29/17 05:45 Anion Gap 12.2 (7.0-16.0) 05/29/17 05:45 BUN 34 mg/dL (7-25) H 05/29/17 05:45 Creatinine 0.9 mg/dL (0.7-1.3) 05/29/17 05:45 Est GFR ( Amer) > 60.0 ml/min (>90) 05/29/17 05:45 Est GFR (Non-Af Amer) > 60.0 ml/min 05/29/17 05:45 BUN/Creatinine Ratio 37.8 05/29/17 05:45 Glucose 129 mg/dL (70-105) H 05/29/17 05:45 Whole Bld Lactic Acid 4.01 mmol/L (0.60-1.99) H* 05/29/17 05:45 Calcium 9.5 mg/dL (8.6-10.3) 05/29/17 05:45 Total Bilirubin 0.8 mg/dL (0.3-1.0) 05/29/17 05:45 AST 20 U/L (13-39) 05/29/17 05:45 ALT 13 U/L (7-52) 05/29/17 05:45 Alkaline Phosphatase 83 U/L (34-104) 05/29/17 05:45 Troponin I 0.02 ng/mL (0.01-0.05) 05/29/17 05:45 B-Natriuretic Peptide 74.1 pg/mL (5.0-100.0) 05/29/17 05:45 Total Protein 6.6 gm/dL (6.0-8.3) 05/29/17 05:45 Albumin 3.6 gm/dL (4.2-5.5) L 05/29/17 05:45 Globulin 3.0 gm/dL 05/29/17 05:45 Albumin/Globulin Ratio 1.2 (1.0-1.8) 05/29/17 05:45 Triglycerides 83 mg/dL (<150) 05/29/17 05:45 Cholesterol 146 mg/dL (<200) 05/29/17 05:45 LDL Cholesterol Direct 111 mg/dL (75-193) 05/29/17 05:45 HDL Cholesterol 32 mg/dL (23-92) 05/29/17 05:45 TSH 7.53 uIU/ml (0.34-5.60) H 05/29/17 05:45 - Physical Exam Vitals and I&O: Vital Signs Temp 98.3 F 05/29/17 06:47 Pulse 102 05/29/17 06:47 Resp 22 05/29/17 06:47 BP 133/69 05/29/17 06:47 Pulse Ox 96 05/29/17 06:47 Active Medications: Current Medications Ceftriaxone Sodium 1 gm/ (Sodium Chloride) 50 mls @ 100 mls/hr IV X1 ONE Stop: 05/29/17 07:38 Last Admin: 05/29/17 08:13 Dose: 100 mls/hr Azithromycin 500 mg/ Sodium (Chloride) 250 mls @ 250 mls/hr IV X1 ONE Stop: 05/29/17 08:09 Last Admin: 05/29/17 08:14 Dose: 250 mls/hr Sodium Chloride (Nacl 0.45%) 1,000 mls @ 0 mls/hr IV .Q0M ONE PRN Reason: Wide Open Stop: 05/29/17 07:15 Last Admin: 05/29/17 08:15 Dose: 1,000 mls/hr Methylprednisolone Sodium Succinate (Solu-Medrol) 125 mg IM X1 ONE Stop: 05/29/17 05:35 Last Admin: 05/29/17 05:36 Dose: 125 mg Potassium Chloride (Klor-Con) 40 meq PO X1 ONE Stop: 05/29/17 07:14 - Procedures Procedures: Procedures Procedure Code Date CHANGE FEEDING DEVICE IN UP INTEST TRACT, ABLE BODIED TANKERMAN APPROACH [id number] 07/06/[address] GASTROSTOMY TUBE 97089 02/16/09 INSERT EMERGENCY AIRWAY 77211 12/21/16 INSERTION OF ENDOTRACHEAL AIRWAY INTO TRACHEA, VIA OPENING [id number] 12/21/16 INSERTION OF INFUSION DEVICE INTO R ATRIUM, PERC APPROACH [id number] 12/21/16 OTHER ENDOSCOPY OF SM INTEST 45.13 02/16/09 REPLACE GASTROSTOMY TUBE 97.02 02/16/09 RESPIRATORY VENTILATION, GREATER THAN 96 CONSECUTIVE HOURS [id number] 12/21/16 VENT MGMT INPAT INIT DAY 31396 12/21/16 VENT MGMT INPAT SUBQ DAY 24908 12/21/16 Internal Medicine Assmt/Plan - Assessment Assessment: SEPSIS HTN SOB GASTRITIS HTN DYSPHAGIA ON PEG BIPOLAR
[2017-05-29] MEDS ORDERED: guaiFENesin 200 MG/10 ML UDC PO PRN (08:27)
[2017-05-29] MEDS ORDERED: Non-Formulary Item 1 EA (Lactobacillus Acidophilus [Acidophilus] 1 EACH) GT SCH (09:00)
[2017-05-29] MEDS ORDERED: MAGNESIUM HYDROX GT SCH (09:00)
[2017-05-29] MEDS ORDERED: CALCIUM CARB GT SCH (09:00)
[2017-05-29] MEDS ORDERED: OMEGA GT SCH (09:00)
[2017-05-29] MEDS ORDERED: FATTY ACIDS GT SCH (09:00)
[2017-05-29] MEDS ORDERED: Non-Formulary Item 1 EA (Omeprazole [Omeprazole] 20 MG) GT SCH (09:00)
[2017-05-29] MEDS ORDERED: Non-Formulary Item 1 EA (Ascorbic Acid 500 MG) GT SCH (09:00)
[2017-05-29] MEDS ORDERED: Non-Formulary Item 1 EA (Multivit,Th Iron,Other Min [Thera-M] 1 TAB) GT SCH (09:00)
[2017-05-29] MEDS ORDERED: FISH OIL GT SCH (09:00)
--- NOTE | 2017-05-29 09:05 | Diagnostic Imaging Report ---
CT Chest without IV contrast HISTORY: Acute shortness of breath COMPARISON: Chest x-ray performed on 12/26/2016. Technique: Axial images were obtained from the base of the neck to the upper abdomen without IV contrast. Reconstructions were made. Total DLP to 26, CTD I 7.5 Findings: Evaluation of mediastinum is limited due to lack of IV contrast. No evidence of mediastinal lymphadenopathy. The heart size is normal. Mild atherosclerotic vascular disease is noted including coronary artery calcifications. No evidence of the pericardial effusion. No evidence of any aortic aneurysm. Dilated fluid-filled esophagus and dilated stomach is noted with an air-fluid level. Gastrostomy tube is noted with balloon along the pyloric region. There is mild volume loss of the right lung. Diffuse right lung infiltrates are seen greatest are primarily of the right lower lobe with right lower lobe consolidative changes and small right effusion also noted. Few left lung infiltrates are also seen greatest in the left lower lobe. Additional hypoventilatory atelectatic lung changes are noted. The upper abdomen demonstrates a percutaneous gastrostomy tube. Gallstones are noted. Old moderate compression deformity of T5 and mild compression deformity of T11 is noted. IMPRESSION: Diffuse right lung infiltrates and consolidative changes primarily involving the right lower lobe with small right effusion. Additional few left lung infiltrates are also seen primarily along the left lung base. Distended stomach with air-fluid level. Fluid distended esophagus is also noted. Please correlate with clinical findings. A Percutaneous gastric feeding tube is also noted. The gastrostomy tube balloon is likely in the pyloric region. Note that mechanical gastric outlet obstruction from patient's G-tube cannot be excluded. Again clinical correlation is recommended. Cholelithiasis. Mild atherosclerotic vascular disease.
[2017-05-29] MEDS ORDERED: Zinc Oxide Ointment 60 gm TP PRN (09:22)
[2017-05-29] MEDS ORDERED: Diatrizoate Meglumine/Diatri 30 mL Sol PO ONE (10:00)
--- NOTE | 2017-05-29 10:03 | History & Physical ---
ADMIT DATE: 05/29/2017 CHIEF COMPLAINT: Shortness of breath. HISTORY OF PRESENT ILLNESS: This is a 61-year-old male who is a resident of [facility] who is brought here to [facility] with a 1 day history of shortness of breath. No fevers were noted at the [place] [facility]. For this reason, the patient is admitted to the telemetry unit. PAST MEDICAL HISTORY: Severe intellectual disability, hypertension, dysphagia, anoxic encephalopathy, aspiration pneumonia, impulse control disorder, insomnia, gastritis, bipolar disorder and pseudobulbar affect. FAMILY HISTORY: Noncontributory. SOCIAL HISTORY: The patient resides at [facility], requiring 24-hour nursing care. PAST SURGICAL HISTORY: PEG. MEDICATIONS: Please see medication reconciliation sheet. REVIEW OF SYSTEMS: Unable to obtain due to patient's mental status. PHYSICAL EXAMINATION: GENERAL: The patient is a well-developed, well-nourished, in no apparent distress. VITAL SIGNS: Temperature 98.3, heart rate 102, blood pressure 133/69, respirations 22, O2 96%. HEENT: Head; normocephalic, atraumatic. NECK: Supple. No mass. LUNGS: Rhonchi bilaterally. HEART: Regular rhythm. ABDOMEN: Soft, nontender. LABORATORY DATA: WBC 8.6, H and H 16.4 and 47.7, platelet of 137. ABG: pH 7.51, , bicarb 27.1. Sodium 136, potassium 3.3, chloride 104, BUN 34, creatinine 0.9, whole lactic acid of 4.01. Albumin 3.6. ASSESSMENT: Dyspnea, sepsis, acute respiratory distress, hypertension, gastritis. PLAN: The patient to be admitted to the telemetry unit. We will get on the case. We will do a repeat of lactic acid. We will wait for CT of the chest results. We will keep the patient on empiric IV antibiotics and also IV steroids, a.m. labs in the morning, albuterol and Atrovent. We will continue to monitor this patient. [facility]# [id number]
[2017-05-29] MEDS: Albuterol Nebulizer 2.5mg/3mL IH SCH ×4 (10:25→19:58)
[2017-05-29] MEDS: Ipratropium Neb 0.5 mg/2.5 mL UD IH SCH ×4 (10:25→19:59)
[2017-05-29] MEDS: D5-0.9%NS 1,000 ML IV SCH ×2 (10:38→22:08)
[2017-05-29] MEDS: Azithromycin 500 MG in Sodium Chloride 0.9% 250 ML IV SCH (10:38)
[2017-05-29] MEDS: CHOLECALCIFEROL 400 UNIT GT SCH (10:55)
[2017-05-29] MEDS: Dextromethorphan/Quinidine 20mg/10mg Cap GT SCH ×2 (10:56→16:42)
--- NOTE | 2017-05-29 11:17 | Operative Report ---
DATE OF SURGERY: 05/29/2017 PROCEDURE: G-tube replacement. DESCRIPTION OF PROCEDURE: The procedure took place in the Emergency Room of [facility]. The existing G-tube was a replacement, type 22-Wallisian. It was removed after its inner balloon was deflated using a syringe. Using the same gastrocutaneous fistula site, a new 20-Wallisian replacement G-tube was inserted into the stomach and its inner balloon tip was inflated using 15 mL of sterile water. Overlying dressing was placed. The outer bumper was placed as close to the skin as possible. The patient tolerated procedure well and no complications are anticipated. RECOMMENDATIONS: We will obtain an upper GI series to confirm that the G-tube is in satisfactory position in the stomach. Once confirmed, then may use G-tube for water flushes and medications as tolerated. Thank you, Dr. Federico Thomas, for involving us in the care of this patient. If you have any further questions, please call us. JOB# [id number]
[2017-05-29] MEDS: methylPREDNISolone SS 40 mg Vial IVP SCH ×2 (12:32→20:37)
[2017-05-29] MEDS ORDERED: VTE Chemical Prophylaxis Screen/Admission MC PRN (16:45)
--- NOTE | 2017-05-29 19:52 | Consultation ---
DATE OF CONSULTATION: 05/29/2017 REQUESTING PHYSICIAN: Federico Thomas M.D. REASON FOR CONSULTATION: G-tube malfunction. HISTORY OF PRESENT ILLNESS: This is a 61-year-old male, a senior living resident, admitted for sepsis and shortness of breath. He also has hypertension, gastritis, GERD, and bipolar disorder. We were asked to evaluate the patient for malfunctioning G-tube. It was unable to be used by the nursing staff at bedside due to special port that needed to be used. The senior living was unwilling to provide the G-tube adapter to allow for G-tube usage therefore G-tube replacement was requested. PAST MEDICAL HISTORY: As above. MEDICATIONS: Here are Tylenol, albuterol, Tenormin, azithromycin, Dulcolax, Tums, Rocephin. Nuedexta, Robitussin, Atrovent, milk of magnesia, Solu-Medrol, Zofran, MiraLax, Seroquel, Desyrel, and Depakote. ALLERGIES: None. SOCIAL HISTORY: No known tobacco, alcohol, or drugs. FAMILY HISTORY: Noncontributory. REVIEW OF SYSTEMS: A comprehensive 12-point review of system was conducted and is only positive for those signs and symptoms present in history of present illness. PHYSICAL EXAMINATION: VITAL SIGNS: Temperature of 98.4, blood pressure is 122/74, pulse is 132, respirations are 22, and O2 sat 96%. GENERAL: The patient is well-developed, chronically ill-appearing male in no acute distress. HEENT: Sclerae nonicteric. Oropharynx is clear. CARDIOVASCULAR: Regular rate and rhythm. LUNGS: With occasional rhonchi at the base. ABDOMEN: Soft, nontender, and slightly distended. Intact G-tube of replacement type. RECTAL: Deferred. EXTREMITIES: No clubbing, cyanosis, or edema. LABORATORY DATA AND IMAGING: WBC 8.6, hemoglobin 16.4, and platelet count is 137,000. INR is normal. Sodium is 136, creatinine is 0.9. Liver enzymes are normal. TSH is slightly elevated. Preliminary imaging with CT of chest shows consolidation in the lungs, possibly distended stomach with G-tube tip, possibly in the pyloric channel or duodenal lumen causing gastric outlet obstruction. IMPRESSION: 1. Dysphagia with G-tube malfunction and malposition with G-tube, possibly too far in with tip likely in duodenal lumen causing gastric outlet obstruction, also current G-tube is not able to be used due to the lack of adapter. 2. Sepsis and possible pneumonia and shortness of breath. 3. History of bipolar disorder. RECOMMENDATIONS: 1. We will replace G-tube at bedside with another replacement type that can be used here. 2. We will obtain upper GI series to confirm the G-tube is in satisfactory position and that there is no evidence of gastric outlet obstruction. 3. Further recommendations following G-tube replacement. 4. Continue medications as tolerated. Thank you, Dr. Federico Thomas, for involving us in the care of your patient. If you have any further questions, please call us. [facility]# [id number]
--- NOTE | 2017-05-29 21:36 | Consultation ---
DATE OF CONSULTATION: 05/29/2017 REFERRING PHYSICIAN: Dr. Thomas. Thank you very much Dr. Thomas for this consultation. HISTORY OF PRESENT ILLNESS: This is a 61-year-old male with a history of mental disability who presents with a cough, congestion, and hypoxemia, placed on the VentiMask oxygen supplementation, nebulizer treatment, and IV antibiotics, admitted for further treatment and management. The patient is unable to give any history due to the above. PAST MEDICAL HISTORY: Intellectual disability, hypertension, psychosis, dysphagia, encephalopathy, history of aspiration pneumonia in the past, And G-tube feedings. REVIEW OF SYSTEMS: Unable to obtain because of the patient's condition. PHYSICAL EXAMINATION: GENERAL: The patient appears to be comfortable. VITAL SIGNS: Temperature 98.1, pulse ____, respirations 20, blood pressure 125/77, saturation 100%. HEENT: Atraumatic, normocephalic. Pupils reactive to light and accommodation. Ears, nose, and throat are normal. NECK: Supple. No JVD. CHEST: There are good breath sounds, few rhonchi in bases. HEART: Regular rate and rhythm. ABDOMEN: Soft. EXTREMITIES: No edema. LABORATORY DATA: WBC 8.6, hemoglobin 16.4, hematocrit 47.7, platelets 137. ABGs: pH 7.51, pCO2 of 32, pO2 of 70, bicarbonate 27, and saturation 95%. Sodium 136, potassium 3.3, BUN 34, creatinine 0.9. Lactic acid 4.54. TSH is 7.53. There was a CT of the chest done that showed a dilated esophagus, low lung volumes, and right lower lobe infiltrate. IMPRESSION: This is a 61-year-old male with; 1. Pneumonia possibly with aspiration. 2. Respiratory failure. 3. Dysphagia. PLAN: 1. IV antibiotics. 2. Nebulizer. 3. Oxygen supplementation. 4. Pulmonary toilet. 5. Follow up chest x-ray. I will follow the patient with you. Thank you very much for this consultation JOB# [id number]
[2017-05-30] MEDS: methylPREDNISolone SS 40 mg Vial IVP SCH (04:29)
[2017-05-30 06:35] LABS: MEAN CELL VOLUME 94.8 fl (80-99); MEAN CORPUSCULAR HEMOGLOBIN 32.6 pg (26.0-30.0); MEAN CORPUSCULAR HGB CONC 34.4 pg (28.0-36.0); MEAN PLATELET VOLUME 10.7 fl; PLATELET COUNT 110 Th/cmm (150-400); RED BLOOD COUNT 3.85 Mil/cmm (4.30-5.70); RED CELL DISTRIBUTION WIDTH 12.9 % (11.5-20.0)
[2017-05-30 06:43] LABS: HEMATOCRIT 36.6 % (39.0-49.0); HEMOGLOBIN 12.6 gm/dL (13.2-17.3)
[2017-05-30 06:45] LABS: ANION GAP 9.1 (7.0-16.0); BUN - UREA NITROGEN 34 mg/dL (7-25); BUN/CREATININE RATIO 48.6; CALCIUM SERUM 9.6 mg/dL (8.6-10.3); CARBON DIOXIDE 25.3 mEq/L (21.0-31.0); CHLORIDE 111 mEq/L (98-107); CREATININE - SERUM 0.7 mg/dL (0.7-1.3); GLUCOSE 225 mg/dL (70-105); POTASSIUM SERUM 4.4 mEq/L (3.5-5.1); SODIUM SERUM 141 mEq/L (136-145)
[2017-05-30] MEDS: Ipratropium Neb 0.5 mg/2.5 mL UD IH SCH ×2 (07:01→11:07)
[2017-05-30] MEDS: Albuterol Nebulizer 2.5mg/3mL IH SCH ×2 (07:01→11:07)
--- NOTE | 2017-05-30 08:18 | Diagnostic Imaging Report ---
Upper GI with Gastrografin HISTORY: G-tube confirmation COMPARISON: None FINDINGS: [employer] Program Chair view demonstrates a percutaneous feeding tube. Mild distal fecal impaction is noted. The second image demonstrates contrast opacification of the stomach and small bowel loops. IMPRESSION: Intraluminal confirmation of patient's percutaneous gastric feeding tube. Mild distal fecal impaction.
[2017-05-30 08:34] LABS: BAND NEUTROPHILE 12 % (0-10); PLATELET ESTIMATE SLIGHT DECREASED (NORMAL); TOTAL CELLS COUNTED 100; TOXIC GRANULATION 2+
[2017-05-30 08:35] LABS: METAMYELOCYTE 3 % (0-0); NEUTROPHILS 68 % (40-80)
--- NOTE | 2017-05-30 08:50 | Diagnostic Imaging Report ---
Exam: Portable chest x-ray one view. HISTORY: Shortness of breath. Findings: Portable upright examination of chest at 0821 hours reviewed. No prior studies available comparison. The study demonstrates mild congestion with superimposed right-sided infiltrate. The costophrenic angles are clear. Mediastinal structures midline. Bony thorax remarkable for degenerative osteopenia. IMPRESSION: 1. Mild congestion. 2. Question right-sided infiltrate, follow-up examination recommended.
[2017-05-30] MEDS: Dextromethorphan/Quinidine 20mg/10mg Cap GT SCH ×2 (09:16→17:08)
[2017-05-30] MEDS: Lactobacillus Rhamnosus 10 Billion CFU Capsule PO SCH (09:17)
[2017-05-30] MEDS: Multivitamin Tab PO SCH (09:17)
[2017-05-30] MEDS: CHOLECALCIFEROL 400 UNIT GT SCH (09:18)
[2017-05-30] MEDS: Azithromycin 500 MG in Sodium Chloride 0.9% 250 ML IV SCH (09:19)
--- NOTE | 2017-05-30 12:35 | Internal Medicine Prog Note ---
Internal Medicine Subjective - Subjective Service Date: 05/30/17 (s/p peg ) Patient seen and examined:: with staff Patient is:: awake, non-interactive Patient Complaints of:: congestion Per staff patient has:: no adverse event Internal Medicine Objective - Results Result Diagrams: 05/30/17 05:37 05/30/17 05:37 Recent Labs: Laboratory Last Values WBC 12.0 Th/cmm (4.8-10.8) H D 05/30/17 05:37 RBC 3.85 Mil/cmm (4.30-5.70) L 05/30/17 05:37 Hgb 12.6 gm/dL (13.2-17.3) L D 05/30/17 05:37 Hct 36.6 % (39.0-49.0) L D 05/30/17 05:37 MCV 94.8 fl (80-99) 05/30/17 05:37 MCH 32.6 pg (26.0-30.0) H 05/30/17 05:37 MCHC Differential 34.4 pg (28.0-36.0) 05/30/17 05:37 RDW 12.9 % (11.5-20.0) 05/30/17 05:37 Plt Count 110 Th/cmm (150-400) L 05/30/17 05:37 MPV 10.7 fl 05/30/17 05:37 Band Neutrophils % 12 % (0-10) H 05/30/17 05:37 Neutrophils (Manual) 68 % (40-80) 05/30/17 05:37 Lymphocytes 8 % (20-50) L 05/30/17 05:37 Monocytes 9 % (2-10) 05/30/17 05:37 Metamyelocytes 3 % (0-0) H 05/30/17 05:37 Toxic Granulation 2+ 05/30/17 05:37 Platelet Estimate SLIGHT DECREASED (NORMAL) 05/30/17 05:37 Platelet Morphology NORMAL (NORMAL) 05/29/17 05:45 RBC Morph Micro Appear NORMAL (NORMAL) 05/29/17 05:45 PT 10.2 SECONDS (9.5-11.5) 05/29/17 05:45 INR 0.98 (0.5-1.4) 05/29/17 05:45 PTT (Actin FS) 21.5 SECONDS (26.0-38.0) L 05/29/17 05:45 Specimen Source Arterial 05/29/17 05:13 Sample Site LB 05/29/17 05:13 pH 7.51 (7.35-7.45) H 05/29/17 05:13 pCO2 32.0 mmHg (35.0-45.0) L 05/29/17 05:13 pO2 70.0 mmHg (80.0-100.0) L 05/29/17 05:13 HCO3 27.1 mEq/L (20.0-26.0) H 05/29/17 05:13 Base Excess 2.9 mEq/L (-3.0-3.0) 05/29/17 05:13 O2 Saturation 95.0 % (92.0-100.0) 05/29/17 05:13 Alex Test NA 05/29/17 05:13 Vent Rate NA 05/29/17 05:13 Inspired O2 100 05/29/17 05:13 Tidal Volume NA 05/29/17 05:13 PEEP NA 05/29/17 05:13 Pressure (ins/psv/peep) NA 05/29/17 05:13 Critical Value SH 05/29/17 05:13 Sodium 141 mEq/L (136-145) 05/30/17 05:37 Potassium 4.4 mEq/L (3.5-5.1) 05/30/17 05:37 Chloride 111 mEq/L (98-107) H 05/30/17 05:37 Carbon Dioxide 25.3 mEq/L (21.0-31.0) 05/30/17 05:37 Anion Gap 9.1 (7.0-16.0) 05/30/17 05:37 BUN 34 mg/dL (7-25) H 05/30/17 05:37 Creatinine 0.7 mg/dL (0.7-1.3) 05/30/17 05:37 Est GFR ( Amer) > 60.0 ml/min (>90) 05/30/17 05:37 Est GFR (Non-Af Amer) > 60.0 ml/min 05/30/17 05:37 BUN/Creatinine Ratio 48.6 05/30/17 05:37 Glucose 225 mg/dL (70-105) H 05/30/17 05:37 POC Glucose 167 MG/DL (70 - 105) H 05/29/17 11:15 Whole Bld Lactic Acid 4.54 mmol/L (0.60-1.99) H* 05/29/17 08:11 Calcium 9.6 mg/dL (8.6-10.3) 05/30/17 05:37 Total Bilirubin 0.8 mg/dL (0.3-1.0) 05/29/17 05:45 AST 20 U/L (13-39) 05/29/17 05:45 ALT 13 U/L (7-52) 05/29/17 05:45 Alkaline Phosphatase 83 U/L (34-104) 05/29/17 05:45 Troponin I 0.02 ng/mL (0.01-0.05) 05/29/17 05:45 B-Natriuretic Peptide 74.1 pg/mL (5.0-100.0) 05/29/17 05:45 Total Protein 6.6 gm/dL (6.0-8.3) 05/29/17 05:45 Albumin 3.6 gm/dL (4.2-5.5) L 05/29/17 05:45 Globulin 3.0 gm/dL 05/29/17 05:45 Albumin/Globulin Ratio 1.2 (1.0-1.8) 05/29/17 05:45 Triglycerides 83 mg/dL (<150) 05/29/17 05:45 Cholesterol 146 mg/dL (<200) 05/29/17 05:45 LDL Cholesterol Direct 111 mg/dL (75-193) 05/29/17 05:45 HDL Cholesterol 32 mg/dL (23-92) 05/29/17 05:45 TSH 7.53 uIU/ml (0.34-5.60) H 05/29/17 05:45 - Physical Exam Vitals and I&O: Vital Signs Temp 98 F 05/30/17 08:00 Pulse 84 05/30/17 11:07 Resp 20 05/30/17 11:07 BP 129/79 05/30/17 09:17 Pulse Ox 93 05/30/17 11:07 Intake & Output 05/29/17 05/30/17 05/30/17 18:59 06:59 18:59 Intake Total 350 2040 Balance 350 2040 Weight (lbs) 175 lb Intake: Intake, IV Amount 350 1200 Azithromycin 500 mg In 250 Sodium Chloride 0.9% 250 ml @ 250 mls/hr IV Q24HR [facility] Rx#:[id number] D5-0.9%Ns 1,000 ml @ 100 1000 mls/hr IV .Q10H [facility] Rx#: [id number] Piperacillin Sodium/ 100 200 Tazobact 4.5 gm In Sodium Chloride 0.9% 100 ml @ Per Protocol IV Q8HR [facility] Rx#:[id number] Tube Feeding 600 Other 240 Other: # Voids 2 # Bowel Movements 1 Stool Characteristics Soft Active Medications: Current Medications Acetaminophen (Tylenol) 650 mg PO Q4H PRN PRN Reason: Pain Or Fever above 101 Stop: 07/28/17 12:01 Albuterol Sulfate (Albuterol 2.5mg/3ml Neb Ud) 2.5 mg HHN QIDRT [facility] Stop: 07/29/17 14:59 Ascorbic Acid (Vitamin C) 500 mg PO DAILY [facility] Stop: 07/29/17 08:59 Last Admin: 05/30/17 09:17 Dose: 500 mg Atenolol (Tenormin) 25 mg GT DAILY [facility] Stop: 07/28/17 08:59 Last Admin: 05/30/17 09:17 Dose: 25 mg Bisacodyl (Dulcolax 10 Mg Supp) 10 mg RC PRN PRN PRN Reason: IF MOM INEFFECTIVE Stop: 07/28/17 08:24 Calcium Carbonate (Tums) 1,250 mg GT DAILY [facility] Stop: 07/28/17 08:59 Last Admin: 05/30/17 09:16 Dose: 1,250 mg Calcium Carbonate (Calcium Carb) 600 mg PO QID [facility] Stop: 07/28/17 12:59 Last Admin: 05/30/17 09:17 Dose: 600 mg Dextromethorphan/Quinidine (Nuedexta 20mg-10mg) 1 cap GT BID [facility] Stop: 07/28/17 08:59 Last Admin: 05/30/17 09:16 Dose: 1 cap Guaifenesin (Robitussin) 100 mg PO Q4H PRN PRN Reason: Cough or Congestion Stop: 07/28/17 08:26 Heparin Sodium (Porcine) (Heparin) 5,000 units SUBQ Q12HR [facility] Stop: 07/28/17 20:59 Last Admin: 05/30/17 09:18 Dose: 5,000 units Dextrose/Sodium Chloride (D5-0.9%Ns) 1,000 mls @ 100 mls/hr IV .Q10H [facility] Stop: 07/28/17 08:29 Last Admin: 05/29/17 22:08 Dose: 100 mls/hr Azithromycin 500 mg/ Sodium (Chloride) 250 mls @ 250 mls/hr IV Q24HR [facility] Stop: 07/28/17 08:59 Last Admin: 05/30/17 09:19 Dose: 250 mls/hr Piperacillin Sod/Tazobactam (Sod 4.5 gm/ Sodium Chloride) 100 mls @ 0 mls/hr IV Q8HR [facility] PRN Reason: Per Protocol Stop: 07/28/17 12:59 Last Infusion: 05/30/17 05:29 Dose: Infused Ipratropium [place] (Atrovent Neb 0.5mg/2.5ml) 0.5 mg HHN QIDRT [facility] Stop: 07/29/17 14:59 Lactobacillus Rhamnosus (Culturelle) 1 each PO DAILY [facility] Stop: 07/29/17 08:59 Last Admin: 05/30/17 09:17 Dose: 1 each Magnesium Hydroxide (Milk Of Magnesia) 30 ml GT Q72H PRN PRN Reason: NO BM (CONSTIPATION) Stop: 07/28/17 08:24 Methylprednisolone Sodium Succinate (Solu-Medrol) 80 mg IVP Q8HR [facility] Stop: 07/28/17 12:59 Last Admin: 05/30/17 04:29 Dose: 80 mg Miscellaneous (Cholecalciferol (Vitamin D3) [Vitamin D3]) 400 unit GT DAILY [facility] Stop: 07/28/17 08:59 Last Admin: 05/30/17 09:18 Dose: Not Given Miscellaneous (Vte Chemical Prophylaxis Screen/ Admission) 1 ea MC PRN PRN PRN Reason: PROTOCOL Stop: 07/28/17 16:44 Multivitamins/Vitamin C (Theragran) 1 tab PO DAILY [facility] Stop: 07/29/17 08:59 Last Admin: 05/30/17 09:17 Dose: 1 tab Ondansetron HCl (Zofran) 4 mg IV Q8H PRN PRN Reason: Nausea / Vomiting Stop: 07/28/17 08:26 Petrolatum (Zinc Oxide) 1 appl TP DAILY PRN PRN Reason: REDNESS Stop: 07/28/17 09:21 Polyethylene Glycol (Miralax) 17 gm GT DAILY PRN PRN Reason: Constipation Stop: 07/28/17 08:24 Quetiapine Fumarate (Seroquel) 300 mg GT QPM [facility] PRN Reason: Protocol Stop: 07/28/17 16:59 Last Admin: 05/29/17 16:45 Dose: Not Given Quetiapine Fumarate (Seroquel) 200 mg GT QAM [facility] PRN Reason: Protocol Stop: 07/28/17 08:59 Last Admin: 05/30/17 09:17 Dose: 200 mg Sodium Phosphate (Fleet Enema) 135 ml RC PRN PRN PRN Reason: IF DULCOLAX INEFFECTIVE Stop: 07/28/17 08:24 Trazodone HCl (Desyrel) 25 mg GT HS [facility] PRN Reason: Protocol Stop: 07/28/17 20:59 Last Admin: 05/29/17 20:42 Dose: 25 mg Valproate Sodium (Depakene) 625 mg GT DAILY [facility] PRN Reason: Protocol Stop: 07/28/17 08:59 Last Admin: 05/30/17 09:16 Dose: 625 mg Valproate Sodium (Depakene) 750 mg GT HS [facility] PRN Reason: Protocol Stop: 07/28/17 20:59 Last Admin: 05/29/17 20:37 Dose: 750 mg General: weak HEENT: NC/AT, PERRLA Neck: Supple Lungs: CTAB Cardiovascular: RRR, Normal S1, Normal S2, without murmur Abdomen: soft, non-tender, non-distended Neurological: no change, unable to follow command - Procedures Procedures: Procedures Procedure Code Date CHANGE FEEDING DEVICE IN UP INTEST TRACT, [employer] APPROACH [id number] 05/29/17 CHANGE GASTROSTOMY TUBE 47634 05/29/[address] GASTROSTOMY TUBE 93394 02/16/09 INSERT EMERGENCY AIRWAY 87776 12/21/16 INSERTION OF ENDOTRACHEAL AIRWAY INTO TRACHEA, VIA OPENING [id number] 12/21/16 INSERTION OF INFUSION DEVICE INTO R [facility], PERC APPROACH [id number] 12/21/16 OTHER ENDOSCOPY OF SM INTEST 45.13 02/16/09 REPLACE GASTROSTOMY TUBE 97.02 02/16/09 RESPIRATORY VENTILATION, GREATER THAN 96 CONSECUTIVE HOURS [id number] 12/21/16 VENT MGMT INPAT INIT DAY 61687 12/21/16 VENT MGMT INPAT SUBQ DAY 04987 12/21/16 Internal Medicine Assmt/Plan - Assessment Assessment: SEPSIS HTN SOB GASTRITIS HTN DYSPHAGIA ON PEG BIPOLAR - Plan Plan: continue ivabx am labs bronchodilators supplemental oxygen as needed continue current plan of care
[2017-05-30] MEDS: Albuterol Nebulizer 2.5mg/3mL HHN SCH ×2 (15:15→19:42)
[2017-05-30] MEDS: Ipratropium Neb 0.5 mg/2.5 mL UD HHN SCH ×2 (15:15→19:42)
[2017-05-30] MEDS: D5-0.9%NS 1,000 ML IV SCH (20:35)
[2017-05-31] MEDS: Albuterol Nebulizer 2.5mg/3mL HHN SCH ×4 (07:23→19:21)
[2017-05-31] MEDS: Ipratropium Neb 0.5 mg/2.5 mL UD HHN SCH ×4 (07:23→19:21)
[2017-05-31] MEDS: Azithromycin 500 MG in Sodium Chloride 0.9% 250 ML IV SCH (09:00)
[2017-05-31] MEDS: D5-0.9%NS 1,000 ML IV SCH ×2 (09:12→22:37)
[2017-05-31] MEDS: Multivitamin Tab PO SCH (09:35)
[2017-05-31] MEDS: Dextromethorphan/Quinidine 20mg/10mg Cap GT SCH ×2 (09:41→17:47)
[2017-05-31] MEDS: Lactobacillus Rhamnosus 10 Billion CFU Capsule PO SCH (09:42)
[2017-05-31] MEDS: CHOLECALCIFEROL 400 UNIT GT SCH (12:32)
--- NOTE | 2017-05-31 14:33 | Internal Medicine Prog Note ---
Internal Medicine Subjective - Subjective Service Date: 05/31/17 Patient is:: awake, non-interactive Patient Complaints of:: congestion Per staff patient has:: no adverse event Internal Medicine Objective - Results Result Diagrams: 05/30/17 05:37 05/30/17 05:37 Recent Labs: Laboratory Last Values WBC 12.0 Th/cmm (4.8-10.8) H D 05/30/17 05:37 RBC 3.85 Mil/cmm (4.30-5.70) L 05/30/17 05:37 Hgb 12.6 gm/dL (13.2-17.3) L D 05/30/17 05:37 Hct 36.6 % (39.0-49.0) L D 05/30/17 05:37 MCV 94.8 fl (80-99) 05/30/17 05:37 MCH 32.6 pg (26.0-30.0) H 05/30/17 05:37 MCHC Differential 34.4 pg (28.0-36.0) 05/30/17 05:37 RDW 12.9 % (11.5-20.0) 05/30/17 05:37 Plt Count 110 Th/cmm (150-400) L 05/30/17 05:37 MPV 10.7 fl 05/30/17 05:37 Band Neutrophils % 12 % (0-10) H 05/30/17 05:37 Neutrophils (Manual) 68 % (40-80) 05/30/17 05:37 Lymphocytes 8 % (20-50) L 05/30/17 05:37 Monocytes 9 % (2-10) 05/30/17 05:37 Metamyelocytes 3 % (0-0) H 05/30/17 05:37 Toxic Granulation 2+ 05/30/17 05:37 Platelet Estimate SLIGHT DECREASED (NORMAL) 05/30/17 05:37 Platelet Morphology NORMAL (NORMAL) 05/29/17 05:45 RBC Morph Micro Appear NORMAL (NORMAL) 05/29/17 05:45 PT 10.2 SECONDS (9.5-11.5) 05/29/17 05:45 INR 0.98 (0.5-1.4) 05/29/17 05:45 PTT (Actin FS) 21.5 SECONDS (26.0-38.0) L 05/29/17 05:45 Specimen Source Arterial 05/29/17 05:13 Sample Site LB 05/29/17 05:13 pH 7.51 (7.35-7.45) H 05/29/17 05:13 pCO2 32.0 mmHg (35.0-45.0) L 05/29/17 05:13 pO2 70.0 mmHg (80.0-100.0) L 05/29/17 05:13 HCO3 27.1 mEq/L (20.0-26.0) H 05/29/17 05:13 Base Excess 2.9 mEq/L (-3.0-3.0) 05/29/17 05:13 O2 Saturation 95.0 % (92.0-100.0) 05/29/17 05:13 Alex Test NA 05/29/17 05:13 Vent Rate NA 05/29/17 05:13 Inspired O2 100 05/29/17 05:13 Tidal Volume NA 05/29/17 05:13 PEEP NA 05/29/17 05:13 Pressure (ins/psv/peep) NA 05/29/17 05:13 Critical Value SH 05/29/17 05:13 Sodium 141 mEq/L (136-145) 05/30/17 05:37 Potassium 4.4 mEq/L (3.5-5.1) 05/30/17 05:37 Chloride 111 mEq/L (98-107) H 05/30/17 05:37 Carbon Dioxide 25.3 mEq/L (21.0-31.0) 05/30/17 05:37 Anion Gap 9.1 (7.0-16.0) 05/30/17 05:37 BUN 34 mg/dL (7-25) H 05/30/17 05:37 Creatinine 0.7 mg/dL (0.7-1.3) 05/30/17 05:37 Est GFR ( Amer) > 60.0 ml/min (>90) 05/30/17 05:37 Est GFR (Non-Af Amer) > 60.0 ml/min 05/30/17 05:37 BUN/Creatinine Ratio 48.6 05/30/17 05:37 Glucose 225 mg/dL (70-105) H 05/30/17 05:37 POC Glucose 167 MG/DL (70 - 105) H 05/29/17 11:15 Hemoglobin A1c % 5.3 % (4.0-6.0) 05/30/17 05:37 Whole Bld Lactic Acid 4.54 mmol/L (0.60-1.99) H* 05/29/17 08:11 Calcium 9.6 mg/dL (8.6-10.3) 05/30/17 05:37 Total Bilirubin 0.8 mg/dL (0.3-1.0) 05/29/17 05:45 AST 20 U/L (13-39) 05/29/17 05:45 ALT 13 U/L (7-52) 05/29/17 05:45 Alkaline Phosphatase 83 U/L (34-104) 05/29/17 05:45 Troponin I 0.02 ng/mL (0.01-0.05) 05/29/17 05:45 B-Natriuretic Peptide 74.1 pg/mL (5.0-100.0) 05/29/17 05:45 Total Protein 6.6 gm/dL (6.0-8.3) 05/29/17 05:45 Albumin 3.6 gm/dL (4.2-5.5) L 05/29/17 05:45 Globulin 3.0 gm/dL 05/29/17 05:45 Albumin/Globulin Ratio 1.2 (1.0-1.8) 05/29/17 05:45 Triglycerides 83 mg/dL (<150) 05/29/17 05:45 Cholesterol 146 mg/dL (<200) 05/29/17 05:45 LDL Cholesterol Direct 111 mg/dL (75-193) 05/29/17 05:45 HDL Cholesterol 32 mg/dL (23-92) 05/29/17 05:45 TSH 7.53 uIU/ml (0.34-5.60) H 05/29/17 05:45 - Physical Exam Vitals and I&O: Vital Signs Temp 98.4 F 05/31/17 11:56 Pulse 72 05/31/17 11:56 Resp 19 05/31/17 11:56 BP 129/69 05/31/17 11:56 Pulse Ox 93 05/31/17 11:56 Intake & Output 05/30/17 05/31/17 05/31/17 18:59 06:59 18:59 Intake Total 510 3400 Output Total 1 Balance 509 3400 Weight (lbs) 175 lb 178 lb 8 oz Intake: Intake, IV Amount 250 2300 Azithromycin 500 mg In 250 Sodium Chloride 0.9% 250 ml @ 250 mls/hr IV Q24HR [facility] Rx#:[id number] D5-0.9%Ns 1,000 ml @ 100 2000 mls/hr IV .Q10H [facility] Rx#: [id number] Piperacillin Sodium/ 300 Tazobact 4.5 gm In Sodium Chloride 0.9% 100 ml @ Per Protocol IV Q8HR [facility] Rx#:[id number] Oral 0 Tube Feeding 260 900 Other 200 Output: Stool 1 Other: # Voids 2 # Bowel Movements 1 Stool Characteristics Soft Soft Soft Brown Brown Active Medications: Current Medications Acetaminophen (Tylenol) 650 mg PO Q4H PRN PRN Reason: Pain Or Fever above 101 Stop: 07/28/17 12:01 Albuterol Sulfate (Albuterol 2.5mg/3ml Neb Ud) 2.5 mg HHN QIDRT [facility] Stop: 07/29/17 14:59 Last Admin: 05/31/17 11:27 Dose: 2.5 mg Ascorbic Acid (Vitamin C) 500 mg PO DAILY [facility] Stop: 07/29/17 08:59 Last Admin: 05/31/17 09:42 Dose: 500 mg Atenolol (Tenormin) 25 mg GT DAILY [facility] Stop: 07/28/17 08:59 Last Admin: 05/31/17 09:42 Dose: 25 mg Bisacodyl (Dulcolax 10 Mg Supp) 10 mg RC PRN PRN PRN Reason: IF MOM INEFFECTIVE Stop: 07/28/17 08:24 Calcium Carbonate (Tums) 1,250 mg GT DAILY [facility] Stop: 07/28/17 08:59 Last Admin: 05/31/17 09:42 Dose: 1,250 mg Calcium Carbonate (Calcium Carb) 600 mg PO QID [facility] Stop: 07/28/17 12:59 Last Admin: 05/31/17 13:22 Dose: 600 mg Dextromethorphan/Quinidine (Nuedexta 20mg-10mg) 1 cap GT BID [facility] Stop: 07/28/17 08:59 Last Admin: 05/31/17 09:41 Dose: 1 cap Guaifenesin (Robitussin) 100 mg PO Q4H PRN PRN Reason: Cough or Congestion Stop: 07/28/17 08:26 Heparin Sodium (Porcine) (Heparin) 5,000 units SUBQ Q12HR [facility] Stop: 07/28/17 20:59 Last Admin: 05/31/17 09:43 Dose: 5,000 units Dextrose/Sodium Chloride (D5-0.9%Ns) 1,000 mls @ 100 mls/hr IV .Q10H [facility] Stop: 07/28/17 08:29 Last Admin: 05/31/17 09:12 Dose: 100 mls/hr Azithromycin 500 mg/ Sodium (Chloride) 250 mls @ 250 mls/hr IV Q24HR [facility] Stop: 07/28/17 08:59 Last Admin: 05/31/17 09:00 Dose: 250 mls/hr Piperacillin Sod/Tazobactam (Sod 4.5 gm/ Sodium Chloride) 100 mls @ 0 mls/hr IV Q8HR [facility] PRN Reason: Per Protocol Stop: 07/28/17 12:59 Last Admin: 05/31/17 13:20 Dose: 100 mls/hr Ipratropium [place] (Atrovent Neb 0.5mg/2.5ml) 0.5 mg HHN QIDRT [facility] Stop: 07/29/17 14:59 Last Admin: 05/31/17 11:27 Dose: 0.5 mg Lactobacillus Rhamnosus (Culturelle) 1 each PO DAILY [facility] Stop: 07/29/17 08:59 Last Admin: 05/31/17 09:42 Dose: 1 each Magnesium Hydroxide (Milk Of Magnesia) 30 ml GT Q72H PRN PRN Reason: NO BM (CONSTIPATION) Stop: 07/28/17 08:24 Methylprednisolone Sodium Succinate (Solu-Medrol) 80 mg IVP Q8HR [facility] Stop: 07/29/17 20:59 Last Admin: 05/31/17 13:21 Dose: 80 mg Miscellaneous (Cholecalciferol (Vitamin D3) [Vitamin D3]) 400 unit GT DAILY [facility] Stop: 07/28/17 08:59 Last Admin: 05/31/17 12:32 Dose: Not Given Miscellaneous (Vte Chemical Prophylaxis Screen/ Admission) 1 ea MC PRN PRN PRN Reason: PROTOCOL Stop: 07/28/17 16:44 Multivitamins/Vitamin C (Theragran) 1 tab PO DAILY [facility] Stop: 07/29/17 08:59 Last Admin: 05/31/17 09:35 Dose: 1 tab Ondansetron HCl (Zofran) 4 mg IV Q8H PRN PRN Reason: Nausea / Vomiting Stop: 07/28/17 08:26 Petrolatum (Zinc Oxide) 1 appl TP DAILY PRN PRN Reason: REDNESS Stop: 07/28/17 09:21 Polyethylene Glycol (Miralax) 17 gm GT DAILY PRN PRN Reason: Constipation Stop: 07/28/17 08:24 Quetiapine Fumarate (Seroquel) 300 mg GT QPM [facility] PRN Reason: Protocol Stop: 07/28/17 16:59 Last Admin: 05/30/17 17:09 Dose: 300 mg Quetiapine Fumarate (Seroquel) 200 mg GT QAM [facility] PRN Reason: Protocol Stop: 07/28/17 08:59 Last Admin: 05/31/17 09:41 Dose: 200 mg Sodium Phosphate (Fleet Enema) 135 ml RC PRN PRN PRN Reason: IF DULCOLAX INEFFECTIVE Stop: 07/28/17 08:24 Trazodone HCl (Desyrel) 25 mg GT HS [facility] PRN Reason: Protocol Stop: 07/28/17 20:59 Last Admin: 05/30/17 20:49 Dose: 25 mg Valproate Sodium (Depakene) 625 mg GT DAILY [facility] PRN Reason: Protocol Stop: 07/28/17 08:59 Last Admin: 05/31/17 09:40 Dose: 625 mg Valproate Sodium (Depakene) 750 mg GT HS [facility] PRN Reason: Protocol Stop: 07/28/17 20:59 Last Admin: 05/30/17 20:48 Dose: 750 mg General: weak HEENT: NC/AT, PERRLA Neck: Supple Lungs: CTAB Cardiovascular: RRR, Normal S1, Normal S2, without murmur Abdomen: soft, non-tender, non-distended Neurological: no change, unable to follow command - Procedures Procedures: Procedures Procedure Code Date CHANGE FEEDING DEVICE IN UP INTEST TRACT, CYCLE DIRECTOR APPROACH [id number] 05/29/17 CHANGE GASTROSTOMY TUBE 25449 05/29/[address] GASTROSTOMY TUBE 97886 02/16/09 INSERT EMERGENCY AIRWAY 66852 12/21/16 INSERTION OF ENDOTRACHEAL AIRWAY INTO TRACHEA, VIA OPENING [id number] 12/21/16 INSERTION OF INFUSION DEVICE INTO R ATRIUM, PERC APPROACH [id number] 12/21/16 OTHER ENDOSCOPY OF SM INTEST 45.13 02/16/09 REPLACE GASTROSTOMY TUBE 97.02 02/16/09 RESPIRATORY VENTILATION, GREATER THAN 96 CONSECUTIVE HOURS [id number] 12/21/16 VENT MGMT INPAT INIT DAY 12/21/16 VENT MGMT INPAT SUBQ DAY 02082 12/21/16 Internal Medicine Assmt/Plan - Assessment Assessment: SEPSIS HTN SOB GASTRITIS HTN DYSPHAGIA ON PEG BIPOLAR - Plan Plan: continue ivabx am labs bronchodilators supplemental oxygen as needed continue current plan of care pulmo/gi f/u Nutritional Asmnt/Malnutr-PDOC - Dietary Evaluation Malnutrition Findings (Please click <Entered> for more info): Nutritional Asmnt/Malnutrition Start: 05/30/17 10: 56 Text: Status: Complete Freq: Document 05/30/17 18:23 [facility] (Rec: 05/30/17 18:33 [facility] [id number]) Nutritional Asmnt/Malnutrition Patient General Information Nutritional Screening Consult Diagnosis Dyspnea, sepsis, acute respiratory distress Pertinent Medical Hx/Surgical Hx Severe intellectual disability , HTN, dysphagia, anoxic encephalopathy, aspiration pneumonia, impulse control disorder, insomnia, gastritis, bipolar disorder, pseudobulbar affect Subjective Information Nutrition Consult for gtube received and completed. Pt is a 61-year-old male from [facility] admitted with chief complaint of shortness of breath. Pt was awake but a poor historian. Pt unable to answer questions. Pt appears well nourished with no signs of muscle or fat depletion. Current Diet Order/ Nutrition Support Fibersource HN at 75 ml/hr x 16 hours = 1440kcal, 65gm protein, 972ml water Patient / S.O Can't verbalize diet edu Pertinent Medications Vitamin C, Azithromycin, Tums, Calcium Carbonate, D5-0.9 Ns, Culturelle, Theragran, Piperacillin, Seroquel, Depakene Pertinent Labs (05/30) Glucose 225H Nutritional Hx/Data Height 5 ft 5 in Height (Calculated Centimeters) 165.1 Current Weight (lbs) 175 lb Weight (Calculated Kilograms) 79.4 Weight (Calculated Grams) 99728.7 [place] Body Weight 136 % Etoile Body Weight 129 Weight Status Overweight GI Symptoms GI Symptoms None Food Allergies No Usual diet at home Jevity 1.2 at 75 ml/hr x 16 hours, on [id number], Prostat 30 ml once daily Skin Integrity/Comment: Mick Hyde. Skin intact. Estimated Nutritional Goals BEE in Kcals: Using Current wt Calories/Kcals/Kg Based on current wt 79.5 kg with consideration of overwt status,bedbound Kcals Calculated 6420-5398 kcals/day (20-25 kcals/kg) Protein: Using Current wt Protein g/kg: Based on current wt 79.5 kg with consideration of overwt status,bedbound Protein Calculated 80 gm/day (1 gm/kg) Fluid: ml 4839-6395 ml/day (25-30 ml/kg) Nutritional Problem 1. Problem Problem Inadequate energy intake related to Etiology estimated nutritional needs for metabolic demands as evidenced by Signs/Symptoms: current tube feeding meets 91% of estimated calorie needs. Malnutrition Alert Protein-Calorie Malnutrition N/A Is there a minimum of two criteria No selected? Query Text:Check all the applicable criteria. A minimum of two criteria are recommended for diagnosis of either severe or non-severe malnutrition. Malnutrition Related to Morbid Obesity Malnutrition related to morbid obesity No Intervention/Recommendation Recommendations by RD Increase Calorie Intake Comments 1. Recommend change Fibersource HN to 75 ml/hr x 20 hours to run between 1400- 1000. Tube feeding to provide 1800 kcals, 81 gm protein, and 1215 ml free water per day. Expected Outcomes/Goals Expected Outcomes/Goals Provide pt with 100% of estimated nutritional needs. Physician Parameters for PEM Serum Albumin (g/dl) 3.5 - 5.0 (Normal)
[2017-06-01 07:31] LABS: HEMOGLOBIN 12.6 gm/dL (13.2-17.3); MEAN CELL VOLUME 94.9 fl (80-99); MEAN CORPUSCULAR HEMOGLOBIN 32.4 pg (26.0-30.0); MEAN CORPUSCULAR HGB CONC 34.2 pg (28.0-36.0); MEAN PLATELET VOLUME 11.1 fl; RED CELL DISTRIBUTION WIDTH 12.6 % (11.5-20.0); WHITE BLOOD COUNT 11.4 Th/cmm (4.8-10.8)
[2017-06-01 07:39] LABS: ANION GAP 9.7 (7.0-16.0); BUN - UREA NITROGEN 47 mg/dL (7-25); BUN/CREATININE RATIO 67.1; CARBON DIOXIDE 25.9 mEq/L (21.0-31.0); CHLORIDE 112 mEq/L (98-107); CREATININE - SERUM 0.7 mg/dL (0.7-1.3); GLUCOSE 308 mg/dL (70-105); POTASSIUM SERUM 3.6 mEq/L (3.5-5.1); SODIUM SERUM 144 mEq/L (136-145)
[2017-06-01] MEDS: Ipratropium Neb 0.5 mg/2.5 mL UD HHN SCH ×4 (07:39→22:44)
[2017-06-01] MEDS: Albuterol Nebulizer 2.5mg/3mL HHN SCH ×4 (07:39→22:44)
[2017-06-01 08:05] LABS: PLATELET COUNT 141 Th/cmm (150-400)
[2017-06-01] MEDS: D5-0.9%NS 1,000 ML IV SCH (08:47)
[2017-06-01] MEDS: Dextromethorphan/Quinidine 20mg/10mg Cap GT SCH ×2 (08:50→16:29)
[2017-06-01] MEDS: Multivitamin Tab PO SCH (08:50)
[2017-06-01] MEDS: Lactobacillus Rhamnosus 10 Billion CFU Capsule PO SCH (08:50)
[2017-06-01 09:40] LABS: BAND NEUTROPHILE 17 % (0-10); NEUTROPHILS 64 % (40-80); TOTAL CELLS COUNTED 100
[2017-06-01 09:41] LABS: PLATELET ESTIMATE ADEQUATE (NORMAL); PLATELET MORPHOLOGY NORMAL (NORMAL)
--- NOTE | 2017-06-01 09:57 | Diagnostic Imaging Report ---
Portable chest x-ray HISTORY: Shortness of breath Compared with the prior exam of May 30, 2017, there does appear to be a degree of increase in infiltrate throughout the right lung. Suggestion of a small right pleural effusion. Accentuation of interstitial markings in the left lung. IMPRESSION: 1. Increased infiltrate within the right lung with evidence of a small right pleural effusion.
[2017-06-01] MEDS: Azithromycin 500 MG in Sodium Chloride 0.9% 250 ML IV SCH (09:58)
[2017-06-01] MEDS: CHOLECALCIFEROL 400 UNIT GT SCH (12:15)
--- NOTE | 2017-06-01 13:30 | Internal Medicine Prog Note ---
Internal Medicine Subjective - Subjective Service Date: 06/01/17 (still noted with wheezing) Patient is:: awake, non-interactive Patient Complaints of:: congestion Per staff patient has:: no adverse event Internal Medicine Objective - Results Result Diagrams: 06/01/17 06:17 06/01/17 06:17 Recent Labs: Laboratory Last Values WBC 11.4 Th/cmm (4.8-10.8) H 06/01/17 06:17 RBC 3.90 Mil/cmm (4.30-5.70) L 06/01/17 06:17 Hgb 12.6 gm/dL (13.2-17.3) L 06/01/17 06:17 Hct 37.0 % (39.0-49.0) L 06/01/17 06:17 MCV 94.9 fl (80-99) 06/01/17 06:17 MCH 32.4 pg (26.0-30.0) H 06/01/17 06:17 MCHC Differential 34.2 pg (28.0-36.0) 06/01/17 06:17 RDW 12.6 % (11.5-20.0) 06/01/17 06:17 Plt Count 141 Th/cmm (150-400) L D 06/01/17 06:17 MPV 11.1 fl 06/01/17 06:17 Band Neutrophils % 17 % (0-10) H 06/01/17 06:17 Neutrophils (Manual) 64 % (40-80) 06/01/17 06:17 Lymphocytes 9 % (20-50) L 06/01/17 06:17 Monocytes 10 % (2-10) 06/01/17 06:17 Metamyelocytes 3 % (0-0) H 05/30/17 05:37 Toxic Granulation 2+ 05/30/17 05:37 Platelet Estimate ADEQUATE (NORMAL) 06/01/17 06:17 Platelet Morphology NORMAL (NORMAL) 06/01/17 06:17 RBC Morph Micro Appear NORMAL (NORMAL) 06/01/17 06:17 PT 10.2 SECONDS (9.5-11.5) 05/29/17 05:45 INR 0.98 (0.5-1.4) 05/29/17 05:45 PTT (Actin FS) 21.5 SECONDS (26.0-38.0) L 05/29/17 05:45 Specimen Source Arterial 05/29/17 05:13 Sample Site LB 05/29/17 05:13 pH 7.51 (7.35-7.45) H 05/29/17 05:13 pCO2 32.0 mmHg (35.0-45.0) L 05/29/17 05:13 pO2 70.0 mmHg (80.0-100.0) L 05/29/17 05:13 HCO3 27.1 mEq/L (20.0-26.0) H 05/29/17 05:13 Base Excess 2.9 mEq/L (-3.0-3.0) 05/29/17 05:13 O2 Saturation 95.0 % (92.0-100.0) 05/29/17 05:13 Alex Test NA 05/29/17 05:13 Vent Rate NA 05/29/17 05:13 Inspired O2 100 05/29/17 05:13 Tidal Volume NA 05/29/17 05:13 PEEP NA 05/29/17 05:13 Pressure (ins/psv/peep) NA 05/29/17 05:13 Critical Value SH 05/29/17 05:13 Sodium 144 mEq/L (136-145) 06/01/17 06:17 Potassium 3.6 mEq/L (3.5-5.1) 06/01/17 06:17 Chloride 112 mEq/L (98-107) H 06/01/17 06:17 Carbon Dioxide 25.9 mEq/L (21.0-31.0) 06/01/17 06:17 Anion Gap 9.7 (7.0-16.0) 06/01/17 06:17 BUN 47 mg/dL (7-25) H 06/01/17 06:17 Creatinine 0.7 mg/dL (0.7-1.3) 06/01/17 06:17 Est GFR ( Amer) > 60.0 ml/min (>90) 06/01/17 06:17 Est GFR (Non-Af Amer) > 60.0 ml/min 06/01/17 06:17 BUN/Creatinine Ratio 67.1 06/01/17 06:17 Glucose 308 mg/dL (70-105) H 06/01/17 06:17 POC Glucose 167 MG/DL (70 - 105) H 05/29/17 11:15 Hemoglobin A1c % 5.3 % (4.0-6.0) 05/30/17 05:37 Whole Bld Lactic Acid 4.54 mmol/L (0.60-1.99) H* 05/29/17 08:11 Calcium 9.0 mg/dL (8.6-10.3) 06/01/17 06:17 Total Bilirubin 0.8 mg/dL (0.3-1.0) 05/29/17 05:45 AST 20 U/L (13-39) 05/29/17 05:45 ALT 13 U/L (7-52) 05/29/17 05:45 Alkaline Phosphatase 83 U/L (34-104) 05/29/17 05:45 Troponin I 0.02 ng/mL (0.01-0.05) 05/29/17 05:45 B-Natriuretic Peptide 74.1 pg/mL (5.0-100.0) 05/29/17 05:45 Total Protein 6.6 gm/dL (6.0-8.3) 05/29/17 05:45 Albumin 3.6 gm/dL (4.2-5.5) L 05/29/17 05:45 Globulin 3.0 gm/dL 05/29/17 05:45 Albumin/Globulin Ratio 1.2 (1.0-1.8) 05/29/17 05:45 Triglycerides 83 mg/dL (<150) 05/29/17 05:45 Cholesterol 146 mg/dL (<200) 05/29/17 05:45 LDL Cholesterol Direct 111 mg/dL (75-193) 05/29/17 05:45 HDL Cholesterol 32 mg/dL (23-92) 05/29/17 05:45 TSH 7.53 uIU/ml (0.34-5.60) H 05/29/17 05:45 - Physical Exam Vitals and I&O: Vital Signs Temp 96.6 F 06/01/17 07:59 Pulse 65 06/01/17 08:50 Resp 20 06/01/17 08:00 BP 147/86 06/01/17 08:50 Pulse Ox 90 06/01/17 07:59 Intake & Output 08/15/17 08/16/17 08/16/17 18:59 06:59 18:59 Intake Total 350 1100 1100 Balance 350 1100 1100 Weight (lbs) 178 lb 8 oz Intake: Intake, IV Amount 350 1100 1100 Azithromycin 500 mg In 250 Sodium Chloride 0.9% 250 ml @ 250 mls/hr IV Q24HR [facility] Rx#:[id number] D5-0.9%Ns 1,000 ml @ 100 1000 1000 mls/hr IV .Q10H [facility] Rx#: [id number] Piperacillin Sodium/ 100 100 100 Tazobact 4.5 gm In Sodium Chloride 0.9% 100 ml @ Per Protocol IV Q8HR [facility] Rx#:[id number] Other: Stool Characteristics Soft Soft Soft Brown Brown Foamy Brown Active Medications: Current Medications Acetaminophen (Tylenol) 650 mg PO Q4H PRN PRN Reason: Pain Or Fever above 101 Stop: 07/28/17 12:01 Albuterol Sulfate (Albuterol 2.5mg/3ml Neb Ud) 2.5 mg HHN Q4HRT [facility] Stop: 07/31/17 14:59 Ascorbic Acid (Vitamin C) 500 mg PO DAILY [facility] Stop: 07/29/17 08:59 Last Admin: 06/01/17 08:50 Dose: 500 mg Atenolol (Tenormin) 25 mg GT DAILY [facility] Stop: 07/28/17 08:59 Last Admin: 06/01/17 08:50 Dose: 25 mg Bisacodyl (Dulcolax 10 Mg Supp) 10 mg RC PRN PRN PRN Reason: IF MOM INEFFECTIVE Stop: 07/28/17 08:24 Calcium Carbonate (Tums) 1,250 mg GT DAILY [facility] Stop: 07/28/17 08:59 Last Admin: 06/01/17 08:48 Dose: 1,250 mg Calcium Carbonate (Calcium Carb) 600 mg PO QID [facility] Stop: 07/28/17 12:59 Last Admin: 06/01/17 12:32 Dose: 600 mg Dextromethorphan/Quinidine (Nuedexta 20mg-10mg) 1 cap GT BID [facility] Stop: 07/28/17 08:59 Last Admin: 06/01/17 08:50 Dose: 1 cap Guaifenesin (Robitussin) 100 mg PO Q4H PRN PRN Reason: Cough or Congestion Stop: 07/28/17 08:26 Heparin Sodium (Porcine) (Heparin) 5,000 units SUBQ Q12HR [facility] Stop: 07/28/17 20:59 Last Admin: 06/01/17 08:51 Dose: 5,000 units Dextrose/Sodium Chloride (D5-0.9%Ns) 1,000 mls @ 100 mls/hr IV .Q10H [facility] Stop: 07/28/17 08:29 Last Admin: 06/01/17 08:47 Dose: 100 mls/hr Azithromycin 500 mg/ Sodium (Chloride) 250 mls @ 250 mls/hr IV Q24HR [facility] Stop: 07/28/17 08:59 Last Admin: 06/01/17 09:58 Dose: 250 mls/hr Piperacillin Sod/Tazobactam (Sod 4.5 gm/ Sodium Chloride) 100 mls @ 0 mls/hr IV Q8HR [facility] PRN Reason: Per Protocol Stop: 07/28/17 12:59 Last Admin: 06/01/17 12:10 Dose: 100 mls/hr Ipratropium [place] (Atrovent Neb 0.5mg/2.5ml) 0.5 mg HHN Q4HRT [facility] Stop: 07/31/17 14:59 Lactobacillus Rhamnosus (Culturelle) 1 each PO DAILY [facility] Stop: 07/29/17 08:59 Last Admin: 06/01/17 08:50 Dose: 1 each Magnesium Hydroxide (Milk Of Magnesia) 30 ml GT Q72H PRN PRN Reason: NO BM (CONSTIPATION) Stop: 07/28/17 08:24 Methylprednisolone Sodium Succinate (Solu-Medrol) 80 mg IVP Q6HR [facility] Stop: 07/31/17 11:59 Last Admin: 06/01/17 12:32 Dose: 80 mg Miscellaneous (Cholecalciferol (Vitamin D3) [Vitamin D3]) 400 unit GT DAILY [facility] Stop: 07/28/17 08:59 Last Admin: 06/01/17 12:15 Dose: Not Given Miscellaneous (Vte Chemical Prophylaxis Screen/ Admission) 1 ea MC PRN PRN PRN Reason: PROTOCOL Stop: 07/28/17 16:44 Multivitamins/Vitamin C (Theragran) 1 tab PO DAILY [facility] Stop: 07/29/17 08:59 Last Admin: 06/01/17 08:50 Dose: 1 tab Ondansetron HCl (Zofran) 4 mg IV Q8H PRN PRN Reason: Nausea / Vomiting Stop: 07/28/17 08:26 Petrolatum (Zinc Oxide) 1 appl TP DAILY PRN PRN Reason: REDNESS Stop: 07/28/17 09:21 Polyethylene Glycol (Miralax) 17 gm GT DAILY PRN PRN Reason: Constipation Stop: 07/28/17 08:24 Quetiapine Fumarate (Seroquel) 300 mg GT QPM [facility] PRN Reason: Protocol Stop: 07/28/17 16:59 Last Admin: 05/31/17 17:47 Dose: 300 mg Quetiapine Fumarate (Seroquel) 200 mg GT QAM [facility] PRN Reason: Protocol Stop: 07/28/17 08:59 Last Admin: 06/01/17 08:50 Dose: 200 mg Sodium Phosphate (Fleet Enema) 135 ml RC PRN PRN PRN Reason: IF DULCOLAX INEFFECTIVE Stop: 07/28/17 08:24 Trazodone HCl (Desyrel) 25 mg GT HS [facility] PRN Reason: Protocol Stop: 07/28/17 20:59 Last Admin: 05/31/17 22:14 Dose: 25 mg Valproate Sodium (Depakene) 625 mg GT DAILY [facility] PRN Reason: Protocol Stop: 07/28/17 08:59 Last Admin: 06/01/17 08:49 Dose: 625 mg Valproate Sodium (Depakene) 750 mg GT HS [facility] PRN Reason: Protocol Stop: 07/28/17 20:59 Last Admin: 05/31/17 22:12 Dose: 750 mg General: weak HEENT: NC/AT, PERRLA Neck: Supple Lungs: wheezing, ronchi Cardiovascular: RRR, Normal S1, Normal S2, without murmur Abdomen: soft, non-tender, non-distended Neurological: no change, unable to follow command - Procedures Procedures: Procedures Procedure Code Date CHANGE FEEDING DEVICE IN UP INTEST TRACT, MECHATRONICS TECHNOLOGIST APPROACH [id number] 05/29/17 CHANGE GASTROSTOMY TUBE 66527 05/29/[address] GASTROSTOMY TUBE 38092 02/16/09 INSERT EMERGENCY AIRWAY 58893 12/21/16 INSERTION OF ENDOTRACHEAL AIRWAY INTO TRACHEA, VIA OPENING [id number] 12/21/16 INSERTION OF INFUSION DEVICE INTO R ATRIUM, PERC APPROACH [id number] 12/21/16 OTHER ENDOSCOPY OF SM INTEST 45.13 02/16/09 REPLACE GASTROSTOMY TUBE 97.02 02/16/09 RESPIRATORY VENTILATION, GREATER THAN 96 CONSECUTIVE HOURS [id number] 12/21/16 VENT MGMT INPAT INIT DAY 12/21/16 VENT MGMT INPAT SUBQ DAY 12/21/16 Internal Medicine Assmt/Plan - Assessment Assessment: SEPSIS HTN SOB GASTRITIS HTN DYSPHAGIA ON PEG BIPOLAR - Plan Plan: iv steroids continue ivabx am labs bronchodilators supplemental oxygen as needed continue current plan of care Nutritional Asmnt/Malnutr-PDOC - Dietary Evaluation Malnutrition Findings (Please click <Entered> for more info): Nutritional Asmnt/Malnutrition Start: 05/30/17 10: 56 Text: Status: Complete Freq: Document 05/30/17 18:23 [facility] (Rec: 05/30/17 18:33 [facility] [id number]) Nutritional Asmnt/Malnutrition Patient General Information Nutritional Screening Consult Diagnosis Dyspnea, sepsis, acute respiratory distress Pertinent Medical Hx/Surgical Hx Severe intellectual disability , HTN, dysphagia, anoxic encephalopathy, aspiration pneumonia, impulse control disorder, insomnia, gastritis, bipolar disorder, pseudobulbar affect Subjective Information Nutrition Consult for gtube received and completed. Pt is a 61-year-old male from [facility] admitted with chief complaint of shortness of breath. Pt was awake but a poor historian. Pt unable to answer questions. Pt appears well nourished with no signs of muscle or fat depletion. Current Diet Order/ Nutrition Support Fibersource HN at 75 ml/hr x 16 hours = 1440kcal, 65gm protein, 972ml water Patient / S.O Can't verbalize diet edu Pertinent Medications Vitamin C, Azithromycin, Tums, Calcium Carbonate, D5-0.9 Ns, Culturelle, Theragran, Piperacillin, Seroquel, Depakene Pertinent Labs (05/30) Glucose 225H Nutritional Hx/Data Height 5 ft 5 in Height (Calculated Centimeters) 165.1 Current Weight (lbs) 175 lb Weight (Calculated Kilograms) 79.4 Weight (Calculated Grams) 71075.7 [place] Body Weight 136 % [place] Body Weight 129 Weight Status Overweight GI Symptoms GI Symptoms None Food Allergies No Usual diet at home Jevity 1.2 at 75 ml/hr x 16 hours, on [id number], Prostat 30 ml once daily Skin Integrity/Comment: Mick 18. Skin intact. Estimated Nutritional Goals BEE in Kcals: Using Current wt Calories/Kcals/Kg Based on current wt 79.5 kg with consideration of overwt status,bedbound Kcals Calculated 3551-1259 kcals/day (20-25 kcals/kg) Protein: Using Current wt Protein g/kg: Based on current wt 79.5 kg with consideration of overwt status,bedbound Protein Calculated 80 gm/day (1 gm/kg) Fluid: ml 1835-2190 ml/day (25-30 ml/kg) Nutritional Problem 1. Problem Problem Inadequate energy intake related to Etiology estimated nutritional needs for metabolic demands as evidenced by Signs/Symptoms: current tube feeding meets 91% of estimated calorie needs. Malnutrition Alert Protein-Calorie Malnutrition N/A Is there a minimum of two criteria No selected? Query Text:Check all the applicable criteria. A minimum of two criteria are recommended for diagnosis of either severe or non-severe malnutrition. Malnutrition Related to Morbid Obesity Malnutrition related to morbid obesity No Intervention/Recommendation Recommendations by RD Increase Calorie Intake Comments 1. Recommend change Fibersource HN to 75 ml/hr x 20 hours to run between 1400- 1000. Tube feeding to provide 1800 kcals, 81 gm protein, and 1215 ml free water per day. Expected Outcomes/Goals Expected Outcomes/Goals Provide pt with 100% of estimated nutritional needs. Physician Parameters for PEM Serum Albumin (g/dl) 3.5 - 5.0 (Normal)
--- NOTE | 2017-06-01 15:03 | Diagnostic Imaging Report ---
KUB abdominal film HISTORY: Abdominal distention There is a nonspecific gas pattern of nondilated bowel. No free intraperitoneal air. Balloontipped catheter projects over the right upper abdomen. Small calcifications are seen in the pelvis consistent with phleboliths. IMPRESSION: 1. Nonspecific bowel gas pattern with no acute radiographic abnormalities.
[2017-06-02] MEDS: Albuterol Nebulizer 2.5mg/3mL HHN SCH ×6 (03:37→22:45)
[2017-06-02] MEDS: Ipratropium Neb 0.5 mg/2.5 mL UD HHN SCH ×6 (03:37→22:45)
[2017-06-02] MEDS: D5-0.9%NS 1,000 ML IV SCH (04:34)
[2017-06-02] MEDS: Multivitamin Tab PO SCH (09:07)
[2017-06-02] MEDS: Dextromethorphan/Quinidine 20mg/10mg Cap GT SCH (09:07)
[2017-06-02] MEDS: Lactobacillus Rhamnosus 10 Billion CFU Capsule PO SCH (09:07)
[2017-06-02] MEDS: CHOLECALCIFEROL 400 UNIT GT SCH (09:08)
[2017-06-02] MEDS: Azithromycin 500 MG in Sodium Chloride 0.9% 250 ML IV SCH (09:26)
--- NOTE | 2017-06-02 14:29 | Internal Medicine Prog Note ---
Internal Medicine Subjective - Subjective Service Date: 06/02/17 (still noted with expiratory wheezes) Patient is:: awake, non-interactive Patient Complaints of:: congestion Per staff patient has:: no adverse event Internal Medicine Objective - Results Result Diagrams: 06/01/17 06:17 06/01/17 06:17 Recent Labs: Laboratory Last Values WBC 11.4 Th/cmm (4.8-10.8) H 06/01/17 06:17 RBC 3.90 Mil/cmm (4.30-5.70) L 06/01/17 06:17 Hgb 12.6 gm/dL (13.2-17.3) L 06/01/17 06:17 Hct 37.0 % (39.0-49.0) L 06/01/17 06:17 MCV 94.9 fl (80-99) 06/01/17 06:17 MCH 32.4 pg (26.0-30.0) H 06/01/17 06:17 MCHC Differential 34.2 pg (28.0-36.0) 06/01/17 06:17 RDW 12.6 % (11.5-20.0) 06/01/17 06:17 Plt Count 141 Th/cmm (150-400) L D 06/01/17 06:17 MPV 11.1 fl 06/01/17 06:17 Band Neutrophils % 17 % (0-10) H 06/01/17 06:17 Neutrophils (Manual) 64 % (40-80) 06/01/17 06:17 Lymphocytes 9 % (20-50) L 06/01/17 06:17 Monocytes 10 % (2-10) 06/01/17 06:17 Metamyelocytes 3 % (0-0) H 05/30/17 05:37 Toxic Granulation 2+ 05/30/17 05:37 Platelet Estimate ADEQUATE (NORMAL) 06/01/17 06:17 Platelet Morphology NORMAL (NORMAL) 06/01/17 06:17 RBC Morph Micro Appear NORMAL (NORMAL) 06/01/17 06:17 PT 10.2 SECONDS (9.5-11.5) 05/29/17 05:45 INR 0.98 (0.5-1.4) 05/29/17 05:45 PTT (Actin FS) 21.5 SECONDS (26.0-38.0) L 05/29/17 05:45 Specimen Source Arterial 05/29/17 05:13 Sample Site LB 05/29/17 05:13 pH 7.51 (7.35-7.45) H 05/29/17 05:13 pCO2 32.0 mmHg (35.0-45.0) L 05/29/17 05:13 pO2 70.0 mmHg (80.0-100.0) L 05/29/17 05:13 HCO3 27.1 mEq/L (20.0-26.0) H 05/29/17 05:13 Base Excess 2.9 mEq/L (-3.0-3.0) 05/29/17 05:13 O2 Saturation 95.0 % (92.0-100.0) 05/29/17 05:13 Alex Test NA 05/29/17 05:13 Vent Rate NA 05/29/17 05:13 Inspired O2 100 05/29/17 05:13 Tidal Volume NA 05/29/17 05:13 PEEP NA 05/29/17 05:13 Pressure (ins/psv/peep) NA 05/29/17 05:13 Critical Value SH 05/29/17 05:13 Sodium 144 mEq/L (136-145) 06/01/17 06:17 Potassium 3.6 mEq/L (3.5-5.1) 06/01/17 06:17 Chloride 112 mEq/L (98-107) H 06/01/17 06:17 Carbon Dioxide 25.9 mEq/L (21.0-31.0) 06/01/17 06:17 Anion Gap 9.7 (7.0-16.0) 06/01/17 06:17 BUN 47 mg/dL (7-25) H 06/01/17 06:17 Creatinine 0.7 mg/dL (0.7-1.3) 06/01/17 06:17 Est GFR ( Amer) > 60.0 ml/min (>90) 06/01/17 06:17 Est GFR (Non-Af Amer) > 60.0 ml/min 06/01/17 06:17 BUN/Creatinine Ratio 67.1 06/01/17 06:17 Glucose 308 mg/dL (70-105) H 06/01/17 06:17 POC Glucose 167 MG/DL (70 - 105) H 05/29/17 11:15 Hemoglobin A1c % 5.3 % (4.0-6.0) 05/30/17 05:37 Whole Bld Lactic Acid 4.54 mmol/L (0.60-1.99) H* 05/29/17 08:11 Calcium 9.0 mg/dL (8.6-10.3) 06/01/17 06:17 Total Bilirubin 0.8 mg/dL (0.3-1.0) 05/29/17 05:45 AST 20 U/L (13-39) 05/29/17 05:45 ALT 13 U/L (7-52) 05/29/17 05:45 Alkaline Phosphatase 83 U/L (34-104) 05/29/17 05:45 Troponin I 0.02 ng/mL (0.01-0.05) 05/29/17 05:45 B-Natriuretic Peptide 74.1 pg/mL (5.0-100.0) 05/29/17 05:45 Total Protein 6.6 gm/dL (6.0-8.3) 05/29/17 05:45 Albumin 3.6 gm/dL (4.2-5.5) L 05/29/17 05:45 Globulin 3.0 gm/dL 05/29/17 05:45 Albumin/Globulin Ratio 1.2 (1.0-1.8) 05/29/17 05:45 Triglycerides 83 mg/dL (<150) 05/29/17 05:45 Cholesterol 146 mg/dL (<200) 05/29/17 05:45 LDL Cholesterol Direct 111 mg/dL (75-193) 05/29/17 05:45 HDL Cholesterol 32 mg/dL (23-92) 05/29/17 05:45 TSH 7.53 uIU/ml (0.34-5.60) H 05/29/17 05:45 - Physical Exam Vitals and I&O: Vital Signs Temp 98 F 06/02/17 04:00 Pulse 79 06/02/17 12:27 Resp 20 06/02/17 12:27 BP 133/65 06/02/17 09:07 Pulse Ox 92 06/02/17 12:27 Intake & Output 08/16/17 08/17/17 08/17/17 18:59 06:59 18:59 Intake Total 3050 1025 250 Balance 3050 1025 250 Weight (lbs) 178 lb 8 oz 178 lb 3.2 oz Intake: Intake, IV Amount 2450 200 250 Azithromycin 500 mg In 250 250 Sodium Chloride 0.9% 250 ml @ 250 mls/hr IV Q24HR [facility] Rx#:[id number] D5-0.9%Ns 1,000 ml @ 100 2000 mls/hr IV .Q10H [facility] Rx#: [id number] Piperacillin Sodium/ 200 200 Tazobact 4.5 gm In Sodium Chloride 0.9% 100 ml @ Per Protocol IV Q8HR [facility] Rx#:[id number] Tube Feeding 300 825 Other 300 Other: # Voids 4 2 # Bowel Movements 1 2 Stool Characteristics Soft Soft Foamy Foamy Brown Brown Active Medications: Current Medications Acetaminophen (Tylenol) 650 mg PO Q4H PRN PRN Reason: Pain Or Fever above 101 Stop: 07/28/17 12:01 Albuterol Sulfate (Albuterol 2.5mg/3ml Neb Ud) 2.5 mg HHN Q4HRT [facility] Stop: 07/31/17 14:59 Last Admin: 06/02/17 12:27 Dose: 2.5 mg Ascorbic Acid (Vitamin C) 500 mg PO DAILY [facility] Stop: 07/29/17 08:59 Last Admin: 06/02/17 09:06 Dose: 500 mg Atenolol (Tenormin) 25 mg GT DAILY [facility] Stop: 07/28/17 08:59 Last Admin: 06/02/17 09:07 Dose: 25 mg Bisacodyl (Dulcolax 10 Mg Supp) 10 mg RC PRN PRN PRN Reason: IF MOM INEFFECTIVE Stop: 07/28/17 08:24 Calcium Carbonate (Tums) 1,250 mg GT DAILY [facility] Stop: 07/28/17 08:59 Last Admin: 06/02/17 09:06 Dose: 1,250 mg Calcium Carbonate (Calcium Carb) 600 mg PO QID [facility] Stop: 07/28/17 12:59 Last Admin: 06/02/17 13:57 Dose: 600 mg Dextromethorphan/Quinidine (Nuedexta 20mg-10mg) 1 cap GT BID [facility] Stop: 07/28/17 08:59 Last Admin: 06/02/17 09:07 Dose: 1 cap Guaifenesin (Robitussin) 100 mg PO Q4H PRN PRN Reason: Cough or Congestion Stop: 07/28/17 08:26 Heparin Sodium (Porcine) (Heparin) 5,000 units SUBQ Q12HR [facility] Stop: 07/28/17 20:59 Last Admin: 06/02/17 09:06 Dose: 5,000 units Dextrose/Sodium Chloride (D5-0.9%Ns) 1,000 mls @ 100 mls/hr IV .Q10H [facility] Stop: 07/28/17 08:29 Last Admin: 06/02/17 04:34 Dose: 100 mls/hr Azithromycin 500 mg/ Sodium (Chloride) 250 mls @ 250 mls/hr IV Q24HR [facility] Stop: 07/28/17 08:59 Last Infusion: 06/02/17 10:26 Dose: Infused Piperacillin Sod/Tazobactam (Sod 4.5 gm/ Sodium Chloride) 100 mls @ 0 mls/hr IV Q8HR [facility] PRN Reason: Per Protocol Stop: 07/28/17 12:59 Last Admin: 06/02/17 13:56 Dose: 100 mls/hr Ipratropium [place] (Atrovent Neb 0.5mg/2.5ml) 0.5 mg HHN Q4HRT [facility] Stop: 07/31/17 14:59 Last Admin: 06/02/17 12:26 Dose: 0.5 mg Lactobacillus Rhamnosus (Culturelle) 1 each PO DAILY [facility] Stop: 07/29/17 08:59 Last Admin: 06/02/17 09:07 Dose: 1 each Magnesium Hydroxide (Milk Of Magnesia) 30 ml GT Q72H PRN PRN Reason: NO BM (CONSTIPATION) Stop: 07/28/17 08:24 Methylprednisolone Sodium Succinate (Solu-Medrol) 80 mg IVP Q6HR [facility] Stop: 07/31/17 11:59 Last Admin: 06/02/17 13:57 Dose: 80 mg Miscellaneous (Cholecalciferol (Vitamin D3) [Vitamin D3]) 400 unit GT DAILY [facility] Stop: 07/28/17 08:59 Last Admin: 06/02/17 09:08 Dose: Not Given Miscellaneous (Vte Chemical Prophylaxis Screen/ Admission) 1 ea PRN PRN PRN Reason: PROTOCOL Stop: 07/28/17 16:44 Multivitamins/Vitamin C (Theragran) 1 tab PO DAILY [facility] Stop: 07/29/17 08:59 Last Admin: 06/02/17 09:07 Dose: 1 tab Ondansetron HCl (Zofran) 4 mg IV Q8H PRN PRN Reason: Nausea / Vomiting Stop: 07/28/17 08:26 Petrolatum (Zinc Oxide) 1 appl TP DAILY PRN PRN Reason: REDNESS Stop: 07/28/17 09:21 Polyethylene Glycol (Miralax) 17 gm GT DAILY PRN PRN Reason: Constipation Stop: 07/28/17 08:24 Quetiapine Fumarate (Seroquel) 300 mg GT QPM [facility] PRN Reason: Protocol Stop: 07/28/17 16:59 Last Admin: 06/01/17 16:29 Dose: 300 mg Quetiapine Fumarate (Seroquel) 200 mg GT QAM [facility] PRN Reason: Protocol Stop: 07/28/17 08:59 Last Admin: 06/02/17 09:07 Dose: 200 mg Sodium Phosphate (Fleet Enema) 135 ml RC PRN PRN PRN Reason: IF DULCOLAX INEFFECTIVE Stop: 07/28/17 08:24 Trazodone HCl (Desyrel) 25 mg GT HS [facility] PRN Reason: Protocol Stop: 07/28/17 20:59 Last Admin: 06/01/17 20:54 Dose: 25 mg Valproate Sodium (Depakene) 625 mg GT DAILY [facility] PRN Reason: Protocol Stop: 07/28/17 08:59 Last Admin: 06/02/17 09:05 Dose: 625 mg Valproate Sodium (Depakene) 750 mg GT HS [facility] PRN Reason: Protocol Stop: 07/28/17 20:59 Last Admin: 06/01/17 20:55 Dose: 750 mg General: weak HEENT: NC/AT, PERRLA Neck: Supple Lungs: wheezing, ronchi Cardiovascular: RRR, Normal S1, Normal S2, without murmur Abdomen: soft, non-tender, non-distended Neurological: no change, unable to follow command - Procedures Procedures: Procedures Procedure Code Date CHANGE FEEDING DEVICE IN UP INTEST TRACT, 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 [id number] 05/29/17 CHANGE GASTROSTOMY TUBE 59300 05/29/[address] GASTROSTOMY TUBE 03903 02/16/09 INSERT EMERGENCY AIRWAY 76376 12/21/16 INSERTION OF ENDOTRACHEAL AIRWAY INTO TRACHEA, VIA OPENING [id number] 12/21/16 INSERTION OF INFUSION DEVICE INTO R ATRIUM, PERC APPROACH [id number] 12/21/16 OTHER ENDOSCOPY OF SM INTEST 45.13 02/16/09 REPLACE GASTROSTOMY TUBE 97.02 02/16/09 RESPIRATORY VENTILATION, GREATER THAN 96 CONSECUTIVE HOURS [id number] 12/21/16 VENT MGMT INPAT INIT DAY 07733 12/21/16 VENT MGMT INPAT SUBQ DAY 96108 12/21/16 Internal Medicine Assmt/Plan - Assessment Assessment: SEPSIS HTN SOB GASTRITIS HTN DYSPHAGIA ON PEG BIPOLAR - Plan Plan: iv steroids continue ivabx am labs bronchodilators supplemental oxygen as needed continue current plan of care Nutritional Asmnt/Malnutr-PDOC - Dietary Evaluation Malnutrition Findings (Please click <Entered> for more info): Nutritional Asmnt/Malnutrition Start: 05/30/17 10: 56 Text: Status: Complete Freq: Document 05/30/17 18:23 [facility] (Rec: 05/30/17 18:33 [facility] [id number]) Nutritional Asmnt/Malnutrition Patient General Information Nutritional Screening Consult Diagnosis Dyspnea, sepsis, acute respiratory distress Pertinent Medical Hx/Surgical Hx Severe intellectual disability , HTN, dysphagia, anoxic encephalopathy, aspiration pneumonia, impulse control disorder, insomnia, gastritis, bipolar disorder, pseudobulbar affect Subjective Information Nutrition Consult for gtube received and completed. Pt is a 61-year-old male from [facility] admitted with chief complaint of shortness of breath. Pt was awake but a poor historian. Pt unable to answer questions. Pt appears well nourished with no signs of muscle or fat depletion. Current Diet Order/ Nutrition Support Fibersource HN at 75 ml/hr x 16 hours = 1440kcal, 65gm protein, 972ml water Patient / S.O Can't verbalize diet edu Pertinent Medications Vitamin C, Azithromycin, Tums, Calcium Carbonate, D5-0.9 Ns, Culturelle, Theragran, Piperacillin, Seroquel, Depakene Pertinent Labs (05/30) Glucose 225H Nutritional Hx/Data Height 5 ft 5 in Height (Calculated Centimeters) 165.1 Current Weight (lbs) 175 lb Weight (Calculated Kilograms) 79.4 Weight (Calculated Grams) 22596.7 [place] Body Weight 136 % [place] Body Weight 129 Weight Status Overweight GI Symptoms GI Symptoms None Food Allergies No Usual diet at home Jevity 1.2 at 75 ml/hr x 16 hours, on 5915-1048, Prostat 30 ml once daily Skin Integrity/Comment: Mick Hyde. Skin intact. Estimated Nutritional Goals BEE in Kcals: Using Current wt Calories/Kcals/Kg Based on current wt 79.5 kg with consideration of overwt status,bedbound Kcals Calculated 9884-2551 kcals/day (20-25 kcals/kg) Protein: Using Current wt Protein g/kg: Based on current wt 79.5 kg with consideration of overwt status,bedbound Protein Calculated 80 gm/day (1 gm/kg) Fluid: ml 0058-1006 ml/day (25-30 ml/kg) Nutritional Problem 1. Problem Problem Inadequate energy intake related to Etiology estimated nutritional needs for metabolic demands as evidenced by Signs/Symptoms: current tube feeding meets 91% of estimated calorie needs. Malnutrition Alert Protein-Calorie Malnutrition N/A Is there a minimum of two criteria No selected? Query Text:Check all the applicable criteria. A minimum of two criteria are recommended for diagnosis of either severe or non-severe malnutrition. Malnutrition Related to Morbid Obesity Malnutrition related to morbid obesity No Intervention/Recommendation Recommendations by RD Increase Calorie Intake Comments 1. Recommend change Fibersource HN to 75 ml/hr x 20 hours to run between 1400- 1000. Tube feeding to provide 1800 kcals, 81 gm protein, and 1215 ml free water per day. Expected Outcomes/Goals Expected Outcomes/Goals Provide pt with 100% of estimated nutritional needs. Physician Parameters for PEM Serum Albumin (g/dl) 3.5 - 5.0 (Normal)
[2017-06-03] MEDS: Albuterol Nebulizer 2.5mg/3mL HHN SCH ×5 (03:04→20:02)
[2017-06-03] MEDS: Ipratropium Neb 0.5 mg/2.5 mL UD HHN SCH ×5 (03:04→20:02)
[2017-06-03 06:25] LABS: HEMOGLOBIN 13.6 gm/dL (13.2-17.3); MEAN CELL VOLUME 93.8 fl (80-99); MEAN CORPUSCULAR HEMOGLOBIN 32.8 pg (26.0-30.0); MEAN CORPUSCULAR HGB CONC 34.9 pg (28.0-36.0); MEAN PLATELET VOLUME 9.7 fl; PLATELET COUNT 165 Th/cmm (150-400); RED BLOOD COUNT 4.15 Mil/cmm (4.30-5.70); RED CELL DISTRIBUTION WIDTH 12.7 % (11.5-20.0); WHITE BLOOD COUNT 11.5 Th/cmm (4.8-10.8)
[2017-06-03 07:01] LABS: ANION GAP 9.4 (7.0-16.0); BUN - UREA NITROGEN 35 mg/dL (7-25); CALCIUM SERUM 8.7 mg/dL (8.6-10.3); CARBON DIOXIDE 30.2 mEq/L (21.0-31.0); CHLORIDE 108 mEq/L (98-107); CREATININE - SERUM 0.7 mg/dL (0.7-1.3); GLUCOSE 284 mg/dL (70-105); POTASSIUM SERUM 3.6 mEq/L (3.5-5.1); SODIUM SERUM 144 mEq/L (136-145)
[2017-06-03 07:59] LABS: BAND NEUTROPHILE 14 % (0-10); METAMYELOCYTE 2 % (0-0); NEUTROPHILS 60 % (40-80); PLATELET ESTIMATE ADEQUATE (NORMAL); POLYCHROMASIA 1+; TOTAL CELLS COUNTED 100
[2017-06-03 08:00] LABS: PLATELET MORPHOLOGY NORMAL (NORMAL)
--- NOTE | 2017-06-03 08:48 | Diagnostic Imaging Report ---
CHEST X-RAY: AP view INDICATION: Shortness of breath COMPARISON: Chest x-ray 06/01/2017 FINDINGS: Mild improvement in hazy infiltrates, particularly of the right lung is noted. Mild congestive changes are noted with small right effusion. Atelectatic changes of right lung are noted. Heart size borderline prominent. IMPRESSION: Mild improvement in hazy infiltrates, particularly of the right lung. Mild congestive changes and small right effusion.
[2017-06-03] MEDS: Dextromethorphan/Quinidine 20mg/10mg Cap GT SCH ×2 (09:18→17:18)
[2017-06-03] MEDS: Multivitamin Tab PO SCH (09:18)
[2017-06-03] MEDS: Lactobacillus Rhamnosus 10 Billion CFU Capsule PO SCH (09:18)
[2017-06-03] MEDS: CHOLECALCIFEROL 400 UNIT GT SCH (09:28)
[2017-06-03] MEDS: Azithromycin 500 MG in Sodium Chloride 0.9% 250 ML IV SCH (09:33)
--- NOTE | 2017-06-03 09:53 | Internal Medicine Prog Note ---
Internal Medicine Subjective - Subjective Service Date: 06/03/17 (still noted with wheezing and congestion) Patient is:: awake, non-interactive Patient Complaints of:: congestion Per staff patient has:: no adverse event Internal Medicine Objective - Results Result Diagrams: 06/03/17 06:10 06/03/17 06:10 Recent Labs: Laboratory Last Values WBC 11.5 Th/cmm (4.8-10.8) H 06/03/17 06:10 RBC 4.15 Mil/cmm (4.30-5.70) L 06/03/17 06:10 Hgb 13.6 gm/dL (13.2-17.3) 06/03/17 06:10 Hct 39.0 % (39.0-49.0) 06/03/17 06:10 MCV 93.8 fl (80-99) 06/03/17 06:10 MCH 32.8 pg (26.0-30.0) H 06/03/17 06:10 MCHC Differential 34.9 pg (28.0-36.0) 06/03/17 06:10 RDW 12.7 % (11.5-20.0) 06/03/17 06:10 Plt Count 165 Th/cmm (150-400) 06/03/17 06:10 MPV 9.7 fl 06/03/17 06:10 Band Neutrophils % 14 % (0-10) H 06/03/17 06:10 Neutrophils (Manual) 60 % (40-80) 06/03/17 06:10 Lymphocytes 10 % (20-50) L 06/03/17 06:10 Monocytes 13 % (2-10) H 06/03/17 06:10 Metamyelocytes 2 % (0-0) H 06/03/17 06:10 Atypical Lymphocytes 1 % 06/03/17 06:10 Toxic Granulation 2+ 05/30/17 05:37 Platelet Estimate ADEQUATE (NORMAL) 06/03/17 06:10 Platelet Morphology NORMAL (NORMAL) 06/03/17 06:10 Polychromasia 1+ 06/03/17 06:10 RBC Morph Micro Appear ABNORMAL (NORMAL) 06/03/17 06:10 PT 10.2 SECONDS (9.5-11.5) 05/29/17 05:45 INR 0.98 (0.5-1.4) 05/29/17 05:45 PTT (Actin FS) 21.5 SECONDS (26.0-38.0) L 05/29/17 05:45 Specimen Source Arterial 05/29/17 05:13 Sample Site LB 05/29/17 05:13 pH 7.51 (7.35-7.45) H 05/29/17 05:13 pCO2 32.0 mmHg (35.0-45.0) L 05/29/17 05:13 pO2 70.0 mmHg (80.0-100.0) L 05/29/17 05:13 HCO3 27.1 mEq/L (20.0-26.0) H 05/29/17 05:13 Base Excess 2.9 mEq/L (-3.0-3.0) 05/29/17 05:13 O2 Saturation 95.0 % (92.0-100.0) 05/29/17 05:13 Alex Test NA 05/29/17 05:13 Vent Rate NA 05/29/17 05:13 Inspired O2 100 05/29/17 05:13 Tidal Volume NA 05/29/17 05:13 PEEP NA 05/29/17 05:13 Pressure (ins/psv/peep) NA 05/29/17 05:13 Critical Value SH 05/29/17 05:13 Sodium 144 mEq/L (136-145) 06/03/17 06:10 Potassium 3.6 mEq/L (3.5-5.1) 06/03/17 06:10 Chloride 108 mEq/L (98-107) H 06/03/17 06:10 Carbon Dioxide 30.2 mEq/L (21.0-31.0) 06/03/17 06:10 Anion Gap 9.4 (7.0-16.0) 06/03/17 06:10 BUN 35 mg/dL (7-25) H 06/03/17 06:10 Creatinine 0.7 mg/dL (0.7-1.3) 06/03/17 06:10 Est GFR ( Amer) > 60.0 ml/min (>90) 06/03/17 06:10 Est GFR (Non-Af Amer) > 60.0 ml/min 06/03/17 06:10 BUN/Creatinine Ratio 50.0 06/03/17 06:10 Glucose 284 mg/dL (70-105) H 06/03/17 06:10 POC Glucose 167 MG/DL (70 - 105) H 05/29/17 11:15 Hemoglobin A1c % 5.3 % (4.0-6.0) 05/30/17 05:37 Whole Bld Lactic Acid 4.54 mmol/L (0.60-1.99) H* 05/29/17 08:11 Calcium 8.7 mg/dL (8.6-10.3) 06/03/17 06:10 Total Bilirubin 0.8 mg/dL (0.3-1.0) 05/29/17 05:45 AST 20 U/L (13-39) 05/29/17 05:45 ALT 13 U/L (7-52) 05/29/17 05:45 Alkaline Phosphatase 83 U/L (34-104) 05/29/17 05:45 Troponin I 0.02 ng/mL (0.01-0.05) 05/29/17 05:45 B-Natriuretic Peptide 74.1 pg/mL (5.0-100.0) 05/29/17 05:45 Total Protein 6.6 gm/dL (6.0-8.3) 05/29/17 05:45 Albumin 3.6 gm/dL (4.2-5.5) L 05/29/17 05:45 Globulin 3.0 gm/dL 05/29/17 05:45 Albumin/Globulin Ratio 1.2 (1.0-1.8) 05/29/17 05:45 Triglycerides 83 mg/dL (<150) 05/29/17 05:45 Cholesterol 146 mg/dL (<200) 05/29/17 05:45 LDL Cholesterol Direct 111 mg/dL (75-193) 05/29/17 05:45 HDL Cholesterol 32 mg/dL (23-92) 05/29/17 05:45 TSH 7.53 uIU/ml (0.34-5.60) H 05/29/17 05:45 - Physical Exam Vitals and I&O: Vital Signs Temp 96.7 F 06/03/17 08:00 Pulse 81 06/03/17 09:19 Resp 18 06/03/17 08:00 BP 124/65 06/03/17 09:19 Pulse Ox 93 06/03/17 08:00 Intake & Output 06/02/17 06/03/17 06/03/17 18:59 06:59 18:59 Intake Total 350 1025 Balance 350 1025 Weight (lbs) 194 lb 14.4 oz Intake: Intake, IV Amount 350 200 Azithromycin 500 mg In 250 Sodium Chloride 0.9% 250 ml @ 250 mls/hr IV Q24HR [facility] Rx#:[id number] Piperacillin Sodium/ 100 200 Tazobact 4.5 gm In Sodium Chloride 0.9% 100 ml @ Per Protocol IV Q8HR [facility] Rx#:[id number] Oral 0 Tube Feeding 825 Other: # Voids 3 # Bowel Movements 0 Stool Characteristics Soft Foamy Brown Active Medications: Current Medications Acetaminophen (Tylenol) 650 mg PO Q4H PRN PRN Reason: Pain Or Fever above 101 Stop: 07/28/17 12:01 Albuterol Sulfate (Albuterol 2.5mg/3ml Neb Ud) 2.5 mg HHN Q4HRT [facility] Stop: 07/31/17 14:59 Last Admin: 06/03/17 07:30 Dose: 2.5 mg Ascorbic Acid (Vitamin C) 500 mg PO DAILY [facility] Stop: 07/29/17 08:59 Last Admin: 06/03/17 09:18 Dose: 500 mg Atenolol (Tenormin) 25 mg GT DAILY [facility] Stop: 07/28/17 08:59 Last Admin: 06/03/17 09:19 Dose: 25 mg Bisacodyl (Dulcolax 10 Mg Supp) 10 mg RC PRN PRN PRN Reason: IF MOM INEFFECTIVE Stop: 07/28/17 08:24 Calcium Carbonate (Tums) 1,250 mg GT DAILY [facility] Stop: 07/28/17 08:59 Last Admin: 06/03/17 09:17 Dose: 1,250 mg Calcium Carbonate (Calcium Carb) 600 mg PO QID [facility] Stop: 07/28/17 12:59 Last Admin: 06/03/17 09:18 Dose: 600 mg Dextromethorphan/Quinidine (Nuedexta 20mg-10mg) 1 cap GT BID [facility] Stop: 07/28/17 08:59 Last Admin: 06/03/17 09:18 Dose: 1 cap Guaifenesin (Robitussin) 100 mg PO Q4H PRN PRN Reason: Cough or Congestion Stop: 10/12/17 08:26 Heparin Sodium (Porcine) (Heparin) 5,000 units SUBQ Q12HR [facility] Stop: 07/28/17 20:59 Last Admin: 06/03/17 09:20 Dose: 5,000 units Dextrose/Sodium Chloride (D5-0.9%Ns) 1,000 mls @ 100 mls/hr IV .Q10H [facility] Stop: 07/28/17 08:29 Last Admin: 06/02/17 04:34 Dose: 100 mls/hr Azithromycin 500 mg/ Sodium (Chloride) 250 mls @ 250 mls/hr IV Q24HR [facility] Stop: 07/28/17 08:59 Last Admin: 06/03/17 09:33 Dose: 250 mls/hr Piperacillin Sod/Tazobactam (Sod 4.5 gm/ Sodium Chloride) 100 mls @ 0 mls/hr IV Q8HR [facility] PRN Reason: Per Protocol Stop: 07/28/17 12:59 Last Infusion: 06/03/17 06:40 Dose: Infused Ipratropium [place] (Atrovent Neb 0.5mg/2.5ml) 0.5 mg HHN Q4HRT [facility] Stop: 07/31/17 14:59 Last Admin: 06/03/17 07:30 Dose: 0.5 mg Lactobacillus Rhamnosus (Culturelle) 1 each PO DAILY [facility] Stop: 07/29/17 08:59 Last Admin: 06/03/17 09:18 Dose: 1 each Magnesium Hydroxide (Milk Of Magnesia) 30 ml GT Q72H PRN PRN Reason: NO BM (CONSTIPATION) Stop: 07/28/17 08:24 Methylprednisolone Acetate (Depo-Medrol) 40 mg IV Q6HR [facility] Stop: 07/31/17 11:59 Last Admin: 06/03/17 06:00 Dose: 40 mg Miscellaneous (Cholecalciferol (Vitamin D3) [Vitamin D3]) 400 unit GT DAILY [facility] Stop: 07/28/17 08:59 Last Admin: 06/03/17 09:28 Dose: Not Given Miscellaneous (Vte Chemical Prophylaxis Screen/ Admission) 1 ea PRN PRN PRN Reason: PROTOCOL Stop: 07/28/17 16:44 Multivitamins/Vitamin C (Theragran) 1 tab PO DAILY [facility] Stop: 07/29/17 08:59 Last Admin: 06/03/17 09:18 Dose: 1 tab Ondansetron HCl (Zofran) 4 mg IV Q8H PRN PRN Reason: Nausea / Vomiting Stop: 07/28/17 08:26 Petrolatum (Zinc Oxide) 1 appl TP DAILY PRN PRN Reason: REDNESS Stop: 07/28/17 09:21 Last Admin: 06/03/17 09:20 Dose: 1 appl Polyethylene Glycol (Miralax) 17 gm GT DAILY PRN PRN Reason: Constipation Stop: 07/28/17 08:24 Quetiapine Fumarate (Seroquel) 300 mg GT QPM [facility] PRN Reason: Protocol Stop: 07/28/17 16:59 Last Admin: 06/01/17 16:29 Dose: 300 mg Quetiapine Fumarate (Seroquel) 200 mg GT QAM [facility] PRN Reason: Protocol Stop: 07/28/17 08:59 Last Admin: 06/03/17 09:18 Dose: 200 mg Sodium Phosphate (Fleet Enema) 135 ml RC PRN PRN PRN Reason: IF DULCOLAX INEFFECTIVE Stop: 07/28/17 08:24 Trazodone HCl (Desyrel) 25 mg GT HS [facility] PRN Reason: Protocol Stop: 07/28/17 20:59 Last Admin: 06/02/17 21:34 Dose: 25 mg Valproate Sodium (Depakene) 625 mg GT DAILY [facility] PRN Reason: Protocol Stop: 07/28/17 08:59 Last Admin: 06/03/17 09:17 Dose: 625 mg Valproate Sodium (Depakene) 750 mg GT HS [facility] PRN Reason: Protocol Stop: 07/28/17 20:59 Last Admin: 06/02/17 21:35 Dose: 750 mg General: weak HEENT: NC/AT, PERRLA Neck: Supple Lungs: wheezing, ronchi Cardiovascular: RRR, Normal S1, Normal S2, without murmur Abdomen: soft, non-tender, non-distended Neurological: no change, unable to follow command - Procedures Procedures: Procedures Procedure Code Date CHANGE FEEDING DEVICE IN UP INTEST TRACT, JUNIOR ARCHITECT APPROACH [id number] 05/29/17 CHANGE GASTROSTOMY TUBE 76864 05/29/[address] GASTROSTOMY TUBE 28659 02/16/09 INSERT EMERGENCY AIRWAY 31689 12/21/16 INSERTION OF ENDOTRACHEAL AIRWAY INTO TRACHEA, VIA OPENING [id number] 12/21/16 INSERTION OF INFUSION DEVICE INTO R ATRIUM, PERC APPROACH [id number] 12/21/16 OTHER ENDOSCOPY OF SM INTEST 45.13 02/16/09 REPLACE GASTROSTOMY TUBE 97.02 02/16/09 RESPIRATORY VENTILATION, GREATER THAN 96 CONSECUTIVE HOURS [id number] 12/21/16 VENT MGMT INPAT INIT DAY 36184 12/21/16 VENT MGMT INPAT SUBQ DAY 75997 12/21/16 Internal Medicine Assmt/Plan - Assessment Assessment: SEPSIS HTN SOB GASTRITIS HTN DYSPHAGIA ON PEG BIPOLAR - Plan Plan: await bed availability at [place] iv steroids continue ivabx am labs bronchodilators supplemental oxygen as needed continue current plan of care Nutritional Asmnt/Malnutr-PDOC - Dietary Evaluation Malnutrition Findings (Please click <Entered> for more info): Nutritional Asmnt/Malnutrition Start: 05/30/17 10: 56 Text: Status: Complete Freq: Document 05/30/17 18:23 [facility] (Rec: 05/30/17 18:33 [facility] [id number]) Nutritional Asmnt/Malnutrition Patient General Information Nutritional Screening Consult Diagnosis Dyspnea, sepsis, acute respiratory distress Pertinent Medical Hx/Surgical Hx Severe intellectual disability , HTN, dysphagia, anoxic encephalopathy, aspiration pneumonia, impulse control disorder, insomnia, gastritis, bipolar disorder, pseudobulbar affect Subjective Information Nutrition Consult for gtube received and completed. Pt is a 61-year-old male from [facility] admitted with chief complaint of shortness of breath. Pt was awake but a poor historian. Pt unable to answer questions. Pt appears well nourished with no signs of muscle or fat depletion. Current Diet Order/ Nutrition Support Fibersource HN at 75 ml/hr x 16 hours = 1440kcal, 65gm protein, 972ml water Patient / S.O Can't verbalize diet edu Pertinent Medications Vitamin C, Azithromycin, Tums, Calcium Carbonate, D5-0.9 Ns, Culturelle, Theragran, Piperacillin, Seroquel, Depakene Pertinent Labs (05/30) Glucose 225H Nutritional Hx/Data Height 5 ft 5 in Height (Calculated Centimeters) 165.1 Current Weight (lbs) 175 lb Weight (Calculated Kilograms) 79.4 Weight (Calculated Grams) 44255.7 [place] Body Weight 136 % [place] Body Weight 129 Weight Status Overweight GI Symptoms GI Symptoms None Food Allergies No Usual diet at home Jevity 1.2 at 75 ml/hr x 16 hours, on [id number], Prostat 30 ml once daily Skin Integrity/Comment: Mick Hyde. Skin intact. Estimated Nutritional Goals BEE in Kcals: Using Current wt Calories/Kcals/Kg Based on current wt 79.5 kg with consideration of overwt status,bedbound Kcals Calculated 3312-3631 kcals/day (20-25 kcals/kg) Protein: Using Current wt Protein g/kg: Based on current wt 79.5 kg with consideration of overwt status,bedbound Protein Calculated 80 gm/day (1 gm/kg) Fluid: ml 5452-3113 ml/day (25-30 ml/kg) Nutritional Problem 1. Problem Problem Inadequate energy intake related to Etiology estimated nutritional needs for metabolic demands as evidenced by Signs/Symptoms: current tube feeding meets 91% of estimated calorie needs. Malnutrition Alert Protein-Calorie Malnutrition N/A Is there a minimum of two criteria No selected? Query Text:Check all the applicable criteria. A minimum of two criteria are recommended for diagnosis of either severe or non-severe malnutrition. Malnutrition Related to Morbid Obesity Malnutrition related to morbid obesity No Intervention/Recommendation Recommendations by RD Increase Calorie Intake Comments 1. Recommend change Fibersource HN to 75 ml/hr x 20 hours to run between 1400- 1000. Tube feeding to provide 1800 kcals, 81 gm protein, and 1215 ml free water per day. Expected Outcomes/Goals Expected Outcomes/Goals Provide pt with 100% of estimated nutritional needs. Physician Parameters for PEM Serum Albumin (g/dl) 3.5 - 5.0 (Normal)
[2017-06-03] MEDS: D5-0.9%NS 1,000 ML IV SCH (10:34)
[2017-06-03] MEDS ORDERED: D5-0.9%NS 1,000 ML IV SCH (11:40)
== END 2017-06-03 22:10 | DRG 871 ==
LOC: ER 05:13 → TELE 06:35
PROVIDERS: ADMIT Internal Medicine; ATTEND Internal Medicine
PROC: 0D20XUZ Change Feeding Device in Upper Intestinal Tract, External Approach (ICD-10-PCS; principal; 2017-05-29)
DX: A41.9 Sepsis, unspecified organism (principal); J96.01 Acute respiratory failure with hypoxia; G93.1 Anoxic brain damage, not elsewhere classified; F72 Severe intellectual disabilities; R13.10 Dysphagia, unspecified; K29.70 Gastritis, unspecified, without bleeding; G47.00 Insomnia, unspecified; F31.9 Bipolar disorder, unspecified; F63.9 Impulse disorder, unspecified; F29 Unspecified psychosis not due to a substance or known physiological condition; F03.90 Unspecified dementia, unspecified severity, without behavioral disturbance, psychotic disturbance, mood disturbance, and anxiety; I50.9 Heart failure, unspecified; I11.0 Hypertensive heart disease with heart failure; I25.10 Atherosclerotic heart disease of native coronary artery without angina pectoris; J44.9 Chronic obstructive pulmonary disease, unspecified; K21.9 Gastro-esophageal reflux disease without esophagitis; Y83.8 Other surgical procedures as the cause of abnormal reaction of the patient, or of later complication, without mention of misadventure at the time of the procedure; Y92.89 Other specified places as the place of occurrence of the external cause; Z86.73 Personal history of transient ischemic attack (TIA), and cerebral infarction without residual deficits
CPT/HCPCS: 36415-UA; 36600-90; 71010-TC; 71250-TC; 74000-TC; 80048-TC; 80053-TC; 80061-TC; 82803-TC; 82948-90; 83036-90; 83605; 83880-TC; 84443-TC; 84484-TC; 85007-TC; 85027-TC; 85610-TC; 85730-TC; 90779; 93005; 94760; J0456; J0696; J1030; J1644; J2543; J2920; J2930; J7042; J7613; Z7610

== ENCOUNTER 2017-07-06 17:51 | Inpatient (IN) | payer MEDICARE, MEDICAID ==
[2017-07-06] MEDS ORDERED: Sodium Chloride 0.9% 1,000 ML IV ONE (18:08)
[2017-07-06] MEDS ORDERED: cefTRIAXone 1 GM in Sodium Chloride 0.9% 50 ML IV ONE (18:08)
[2017-07-06] MEDS ORDERED: Azithromycin 500 MG in Sodium Chloride 0.9% 250 ML IV ONE (18:08)
--- NOTE | 2017-07-06 18:08 | ED Physician Chart ---
ED Chief Complaint/HPI - Patient Information Date Seen:: 07/06/17 Time Seen:: 17:50 Chief Complaint:: cough History of Present Illness:: onset x 3 days of cough, fever, and congestion; no report of H/As, neck pain, C/ P, SOB, Abd. Pain, A/N/V/D/C, chills, or urinary s/s Allergies:: Allergies Allergy/AdvReac Type Severity Reaction Status Date / Time No Known Allergies Allergy Verified 05/29/17 05:28 Historian:: EMS Review:: Nurse's Note Reviewed, EMS run form Reviewed, Transfer documents Reviewed ED Review of Systems - Review of Systems General/Constitutional: Fever, Chills, No weight loss, Weakness, No diaphoresis , No edema, No loss of appetite Skin: No skin lesions, No rash, No bruising Head: No headache, No light-headedness Eyes: No loss of vision, No pain, No diplopia ENT: No earache, Nasal drainage, No sore throat, No tinnitus Neck: No neck pain, No swelling, No thyromegaly, No stiffness, No mass noted Cardio Vascular: No chest pain, No palpitations, No PND, No orthopnea, No edema Pulmonary: No SOB, Cough, No sputum, No wheezing GI: No nausea, No vomiting, No diarrhea, No pain, No melena, No hematochezia, No constipation, No hematemesis G/U: No dysuria, No frequency, No hematuria Musculoskeletal: No bone or joint pain, No back pain, No muscle pain Endocrine: No polyuria, No polydipsia Psychiatric: No prior psych history, No depression, No anxiety, No suicidal ideation Hematopoietic: No bruising, No lymphadenopathy Allergic/Immuno: No urticaria, No angioedema Neurological: No syncope, No focal symptoms, Weakness, No paresthesia, No headache, No seizure, No dizziness, Confusion, No vertigo ED Past Medical History - Past Medical History Obtainable: Yes Past Medical History: HTN, PUD/GERD, Dementia Family History: Diabetes Melitus, HTN Social History: Non Smoker, No Alcohol, No Drug Use, Single, Care Facility Surgical History: None Psychiatricy History: Dementia Medication: Reviewed Family Medical History - Family Member Mother History Unknown: Yes Ethnicity: Unknown Living Status: Unknown Hx Family Cancer: (unknown) Hx Family Coronary Artery Disease: (unknown) Hx Family Congestive Heart Failure: (unknown) Hx Family Hypertension: (unknown) Hx Family Stroke: (unknown) Hx Family Diabetes: (unknown) Hx Family Seizures: (unknown) Hx Family Dementia: (unknown) Hx Family AIDS: (unknwn) Hx Family HIV: Yes Hx Family COPD: (unknown) Hx Family Hepatitis: (unknown) Hx Family Psychiatric Problems: (unknown) Hx Family Tuberculosis: (unknown) ED Physical Exam - Physical Examination General/Constitutional: Awake, Well-developed, well-nourished, Alert, No distress, GCS 15, Non-toxic appearing, Ambulatory Head: Atraumatic Eyes: Lids, conjuctiva normal, PERRL, EOMI Skin: Nl inspection, No rash, No skin lesions, No ecchymosis, Well hydrated, No lymphadenopathy ENMT: External ears, nose nl, Nasal exam nl, Lips, teeth, gums nl Neck: Nontender, Full ROM w/o pain, No JVD, No nuchal rigidity, No bruit, No mass, No stridor Respiratory: Nl effort/Exclusion, No Wheeze/Rhonchi/Rales Other Respiratory comments:: Lungs: + Rales and Rhonchi Cardio Vascular: RRR, No murmur, gallop, rubs, NL S1 S2 GI: No tenderness/rebounding/guarding, No organomegaly, No hernia, Normal BS's, Nondistended, No mass/bruits, No McBurney tenderness : No CVA tenderness Extremities: No tenderness or effusion, Full ROM, normal strength in all extremities, No edema, Normal digits & nails Neuro/Psych: DTR's symmetric, Normal sensory exam, Normal motor strength, Judgement/insight normal, Mood normal, Normal gait, No focal deficits Other Neuro/Psych comments:: Disoriented and confused Misc: normal gait, Normal back, No paraspinal tenderness ED Labs/Radiology/EKG Results - Lab Results Comments:: unremarkable - Radiology Results Results: + infiltrate - EKG Interpretations Rate & Rhythm: NSR Comments:: non-specific st-t changes ED Septic Shock - . Is Septic Shock (SBP<90, OR Lactate>4 mmol\L) present?: No ED Reassessment (Disposition) - Reassessment Reassessment Condition:: Improved - Diagnosis Diagnosis:: Dx: Pneumonia; Sepsis - Patient Disposition Discharge/Transfer:: Acute Care w/in this hosp Accepting Physician:: Dr. Thomas Time Called:: 1899 Time Responded:: 19:00 Admitted to:: Telemetry Spoke to:: Dr. Thomas Admitting Medical Physician:: Dr. Thomas Condition at Disposition:: Stable, Improved
[2017-07-06 18:51] LABS: HEMATOCRIT 36.2 % (41.0-60); HEMOGLOBIN 12.3 gm/dL (12-16); MEAN CELL VOLUME 95.6 fl (80-99); MEAN CORPUSCULAR HEMOGLOBIN 32.4 pg (26.0-30.0); MEAN CORPUSCULAR HGB CONC 33.8 pg (28.0-36.0); MEAN PLATELET VOLUME 9.5 fl; RED BLOOD COUNT 3.79 Mil/cmm (4.30-5.70); RED CELL DISTRIBUTION WIDTH 14.2 % (11.5-20.0); WHITE BLOOD COUNT 10.4 Th/cmm (4.8-10.8)
[2017-07-06 18:59] LABS: INR 0.97 (0.5-1.4); PROTHROMBIN TIME (TEST) 10.1 SECONDS (9.5-11.5)
[2017-07-06 19:07] LABS: ALKALINE PHOSPHATASE 95 U/L (34-104); ANION GAP 10.8 (7.0-16.0); BILIRUBIN,TOTAL 0.5 mg/dL (0.3-1.0); BUN - UREA NITROGEN 28 mg/dL (7-25); BUN/CREATININE RATIO 46.7; CALCIUM SERUM 9.1 mg/dL (8.6-10.3); CARBON DIOXIDE 27.3 mEq/L (21.0-31.0); CHLORIDE 101 mEq/L (98-107); CREATININE - SERUM 0.6 mg/dL (0.7-1.3); GLUCOSE 80 mg/dL (70-105); POTASSIUM SERUM 4.1 mEq/L (3.5-5.1); SGOT 14 U/L (13-39); SGPT/ALT 7 U/L (7-52); SODIUM SERUM 135 mEq/L (136-145)
[2017-07-06 19:08] LABS: CHOLESTEROL 160 mg/dL (<200); TRIGLYCERIDES 145 mg/dL (<150)
[2017-07-06 19:22] LABS: PLATELET COUNT 370 Th/cmm (150-400)
[2017-07-06] MEDS ORDERED: Non-Formulary Item 1 EA (Oxybenzone/Padimate O [Sunscreen Spf8 Lotion] 120 ML) TP PRN (19:47)
[2017-07-06] MEDS ORDERED: POLYETHYLENE GLYCOL 3350 17 GM PACK GT PRN (19:47)
[2017-07-06] MEDS ORDERED: Albuterol Nebulizer 2.5mg/3mL HHN PRN (19:47)
[2017-07-06] MEDS ORDERED: Non-Formulary Item 1 EA (Barrier Cream 1 UNIT) TP PRN (19:47)
[2017-07-06] MEDS ORDERED: Fleet Enema 135 mL RC PRN (19:47)
[2017-07-06] MEDS ORDERED: Magnesium Hydroxide (MOM) 30 mL UDC GT PRN (19:47)
[2017-07-06] MEDS ORDERED: Ipratropium Neb 0.5 mg/2.5 mL UD HHN PRN (19:47)
[2017-07-06] MEDS ORDERED: CALCIUM CARB GT SCH (21:00)
[2017-07-06] MEDS ORDERED: MAGNESIUM HYDROX GT SCH (21:00)
[2017-07-06] MEDS ORDERED: VALPROIC ACID 750 MG PO SCH (21:00)
[2017-07-06 21:13] LABS: BAND NEUTROPHILE 8 % (0-10); BASOPHIL 0 % (0-3); EOSINOPHIL 0 % (0-5); NEUTROPHILS 67 % (40-80); PLATELET ESTIMATE ADEQUATE (NORMAL); PLATELET MORPHOLOGY NORMAL (NORMAL); TOTAL CELLS COUNTED 100
[2017-07-07 00:01] VITALS: BP 99/64
[2017-07-07] MEDS: D5-0.45NS 1,000 ML IV SCH ×2 (01:07→15:17)
[2017-07-07] MEDS: Ipratropium Neb 0.5 mg/2.5 mL UD IH SCH ×4 (07:29→19:49)
[2017-07-07] MEDS: Albuterol Nebulizer 2.5mg/3mL HHN SCH ×4 (07:29→19:48)
--- NOTE | 2017-07-07 08:05 | Diagnostic Imaging Report ---
CHEST X-RAY: AP view INDICATION: Pneumonia COMPARISON: 06/03/2017 FINDINGS: Increased right lung linear markings are noted. Chronic changes are seen. No focal consolidation or effusions. Borderline prominent heart is noted. Suboptimal lung volumes are noted. Right lung pleural thickening is noted. Degenerative changes of the spine are noted. IMPRESSION: Increased right lung linear markings favoring atelectatic changes and possible chronic lung changes. Superimposed infiltrates, however, cannot be excluded. Please correlate with clinical findings.
[2017-07-07] MEDS ORDERED: Menthol/Zinc Oxide Oint 113gm Tube TP PRN (08:47)
[2017-07-07] MEDS ORDERED: OMEGA GT SCH (09:00)
[2017-07-07] MEDS ORDERED: FISH OIL GT SCH (09:00)
[2017-07-07] MEDS ORDERED: CHOLECALCIFEROL 400 UNIT GT SCH (09:00)
[2017-07-07] MEDS ORDERED: Non-Formulary Item 1 EA (Lactobacillus Acidophilus [Acidophilus] 1 EACH) GT SCH (09:00)
[2017-07-07] MEDS ORDERED: FATTY ACIDS GT SCH (09:00)
[2017-07-07] MEDS: Pantoprazole 40 mg/Packet GT SCH ×3 (09:53→16:20)
[2017-07-07] MEDS: Dextromethorphan/Quinidine 20mg/10mg Cap GT SCH ×3 (09:54→16:20)
[2017-07-07] MEDS: Fish Oil 1,000 MG SGL PO SCH ×2 (10:20→12:03)
[2017-07-07] MEDS: Ascorbic Acid 500 mg/5 mL UDC GT SCH ×2 (10:21→16:24)
[2017-07-07] MEDS: Multivitamin w/ Minerals 15 mL UDC GT SCH (10:22)
[2017-07-07] MEDS: Lactobacillus Rhamnosus 10 Billion CFU Capsule GT SCH ×2 (10:31→12:04)
--- NOTE | 2017-07-07 14:22 | Internal Medicine Prog Note ---
Internal Medicine Subjective - Subjective Service Date: 07/07/17 (dictated [id number]) Internal Medicine Objective - Results Result Diagrams: 07/06/17 18:29 07/06/17 18: Recent Labs: Laboratory Last Values WBC 10.4 Th/cmm (4.8-10.8) 07/06/17 18:29 RBC 3.79 Mil/cmm (4.30-5.70) L 07/06/17 18:29 Hgb 12.3 gm/dL (12-16) 07/06/17 18: Hct 36.2 % (41.0-60) L 07/06/17 18: MCV 95.6 fl (80-99) 07/06/17 18: MCH 32.4 pg (26.0-30.0) H 07/06/17 18: MCHC Differential 33.8 pg (28.0-36.0) 07/06/17 18: RDW 14.2 % (11.5-20.0) 07/06/17 18: Plt Count 370 Th/cmm (150-400) D 07/06/17 18: MPV 9.5 fl 07/06/17 18: Band Neutrophils % 8 % (0-10) 07/06/17 18: Neutrophils (Manual) 67 % (40-80) 07/06/17 18: Lymphocytes 15 % (20-50) L 07/06/17 18: Monocytes 10 % (2-10) 07/06/17 18: Eosinophils 0 % (0-5) 07/06/17 18: Basophils 0 % (0-3) 07/06/17 18: Platelet Estimate ADEQUATE (NORMAL) 07/06/17 18: Platelet Morphology NORMAL (NORMAL) 07/06/17 18: RBC Morph Micro Appear NORMAL (NORMAL) 07/06/17 18: PT 10.1 SECONDS (9.5-11.5) 07/06/17 18: INR 0.97 (0.5-1.4) 07/06/17 18:29 Sodium 135 mEq/L (136-145) L 07/06/17 18: Potassium 4.1 mEq/L (3.5-5.1) 07/06/17 18: Chloride 101 mEq/L (98-107) 07/06/17 18:29 Carbon Dioxide 27.3 mEq/L (21.0-31.0) 07/06/17 18:29 Anion Gap 10.8 (7.0-16.0) 07/06/17 18:29 BUN 28 mg/dL (7-25) H 07/06/17 18:29 Creatinine 0.6 mg/dL (0.7-1.3) L 07/06/17 18:29 Est GFR ( Amer) > 60.0 ml/min (>90) 07/06/17 18:29 Est GFR (Non-Af Amer) > 60.0 ml/min 07/06/17 18:29 BUN/Creatinine Ratio 46.7 07/06/17 18: Glucose 80 mg/dL (70-105) 07/06/17 18: Whole Bld Lactic Acid 1.73 mmol/L (0.60-1.99) 07/06/17 18: Calcium 9.1 mg/dL (8.6-10.3) 07/06/17 18: Total Bilirubin 0.5 mg/dL (0.3-1.0) 07/06/17 18:29 AST 14 U/L (13-39) 07/06/17 18:29 ALT 7 U/L (7-52) 07/06/17 18:29 Alkaline Phosphatase 95 U/L (34-104) 07/06/17 18:29 Creatine Kinase 14 U/L (30-223) L 07/06/17 18:29 Troponin I 0.01 ng/mL (0.01-0.05) 07/06/17 18: B-Natriuretic Peptide 42.1 pg/mL (5.0-100.0) 07/06/17 18:29 Total Protein 6.5 gm/dL (6.0-8.3) 07/06/17 18:29 Albumin 3.2 gm/dL (4.2-5.5) L 07/06/17 18:29 Globulin 3.3 gm/dL 07/06/17 18:29 Albumin/Globulin Ratio 1.0 (1.0-1.8) 07/06/17 18:29 Triglycerides 145 mg/dL (<150) 07/06/17 18:29 Cholesterol 160 mg/dL (<200) 07/06/17 18:29 LDL Cholesterol Direct 125 mg/dL (75-193) 07/06/17 18:29 HDL Cholesterol 26 mg/dL (23-92) 07/06/17 18:29 - Physical Exam Vitals and I&O: Vital Signs Temp 97.5 F 07/07/17 12:00 Pulse 70 07/07/17 12:00 Resp 18 07/07/17 12:00 BP 147/93 07/07/17 12:00 Pulse Ox 94 07/07/17 12:00 Intake & Output 07/06/17 07/07/17 07/07/17 18:59 06:59 18:59 Weight (lbs) 170 lb 4 oz Other: # Voids 3 # Bowel Movements 0 Active Medications: Current Medications Acetaminophen (Tylenol 650mg/20.3ml Suspension) 650 mg GT Q4H PRN PRN Reason: PAIN OR TEMP >100 Stop: 09/04/17 19:46 Albuterol Sulfate (Albuterol 2.5mg/3ml Neb Ud) 2.5 mg HHN Q4H PRN PRN Reason: Congestion Stop: 09/04/17 19:46 Albuterol Sulfate (Albuterol 2.5mg/3ml Neb Ud) 2.5 mg HHN QIDRT [facility] Stop: 09/05/17 06:59 Last Admin: 07/07/17 07:29 Dose: 2.5 mg Ascorbic Acid (Vitamin C) 500 mg GT BID [facility] Stop: 09/05/17 08:59 Last Admin: 07/07/17 10:21 Dose: Not Given Atenolol (Tenormin) 25 mg GT DAILY [facility] Stop: 09/05/17 08:59 Last Admin: 07/07/17 12:01 Dose: Not Given Bisacodyl (Dulcolax 10 Mg Supp) 10 mg RC PRN PRN PRN Reason: IF MOM INEFFECTIVE Stop: 09/04/17 19:46 Calamine/Phenol (Calmoseptine) 1 appl TP TID PRN PRN Reason: HEALING Stop: 09/05/17 08:46 Calcium Carbonate (Tums) 1,250 mg GT DAILY [facility] Stop: 09/05/17 08:59 Last Admin: 07/07/17 12:02 Dose: Not Given Calcium Carbonate (Calcium Carb) 600 mg PO QID [facility] Stop: 09/05/17 08:59 Last Admin: 07/07/17 12:00 Dose: Not Given Dextromethorphan/Quinidine (Nuedexta 20mg-10mg) 1 cap GT BID [facility] Stop: 09/05/17 08:59 Last Admin: 07/07/17 12:02 Dose: Not Given Fish Oil ([place] 3) 1,000 mg PO DAILY [facility] Stop: 09/05/17 08:59 Last Admin: 07/07/17 12:03 Dose: Not Given Ceftriaxone Sodium 1 gm/ (Sodium Chloride) 50 mls @ 100 mls/hr IV Q24HR [facility] Stop: 09/05/17 20:59 Dextrose/Sodium Chloride (D5-0.45ns) 1,000 mls @ 80 mls/hr IV [id number] [facility] Stop: 09/04/17 19:59 Last Admin: 07/07/17 01:07 Dose: 80 mls/hr Ipratropium [place] (Atrovent Neb 0.5mg/2.5ml) 0.5 mg HHN Q4HR PRN PRN Reason: Congestion Stop: 09/04/17 19:46 Ipratropium [place] (Atrovent Neb 0.5mg/2.5ml) 0.5 mg IH QIDRT [facility] Stop: 09/05/17 06:59 Last Admin: 07/07/17 07:29 Dose: 0.5 mg Lactobacillus Rhamnosus (Culturelle) 1 each GT DAILY [facility] Stop: 09/05/17 08:59 Last Admin: 07/07/17 12:04 Dose: Not Given Magnesium Hydroxide (Milk Of Magnesia) 30 ml GT Q72H PRN PRN Reason: NO BM (CONSTIPATION) Stop: 09/04/17 19:46 Multivitamins/Minerals (Theragran M) 15 ml GT DAILY JESUS MANUEL Stop: 09/05/17 08:59 Last Admin: 07/07/17 10:22 Dose: Not Given Ondansetron HCl (Zofran) 4 mg IV Q8H PRN PRN Reason: Nausea / Vomiting Stop: 09/04/17 19:49 Pantoprazole Sodium (Protonix) 40 mg GT BID JESUS MANUEL Stop: 09/05/17 08:59 Last Admin: 07/07/17 12:03 Dose: Not Given Polyethylene Glycol (Miralax) 17 gm GT DAILY PRN PRN Reason: Constipation Stop: 09/04/17 19:46 Quetiapine Fumarate (Seroquel) 200 mg GT QAM JESUS MANUEL PRN Reason: Protocol Stop: 09/05/17 08:59 Last Admin: 07/07/17 12:05 Dose: Not Given Quetiapine Fumarate (Seroquel) 300 mg GT QPM JESUS MANUEL PRN Reason: Protocol Stop: 09/05/17 16:59 Sodium Phosphate (Fleet Enema) 135 ml RC PRN PRN PRN Reason: IF DULCOLAX INEFFECTIVE Stop: 09/04/17 19:46 Trazodone HCl (Desyrel) 25 mg GT HS JESUS MANUEL PRN Reason: Protocol Stop: 09/04/17 20:59 Valproate Sodium (Depakene) 625 mg GT DAILY JESUS MANUEL PRN Reason: Protocol Stop: 09/05/17 08:59 Last Admin: 07/07/17 10:17 Dose: Not Given Valproate Sodium (Depakene) 750 mg GT HS JESUS MANUEL Stop: 09/05/17 20:59 - Procedures Procedures: Procedures Procedure Code Date CHANGE FEEDING DEVICE IN UP INTEST TRACT, 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 [id number] 05/29/17 CHANGE GASTROSTOMY TUBE 15272 05/29/[address] GASTROSTOMY TUBE 70055 02/16/09 INSERT EMERGENCY AIRWAY 39221 12/21/16 INSERTION OF ENDOTRACHEAL AIRWAY INTO TRACHEA, VIA OPENING [id number] 12/21/16 INSERTION OF INFUSION DEVICE INTO R ATRIUM, PERC APPROACH [id number] 12/21/16 OTHER ENDOSCOPY OF SM INTEST 45.13 02/16/09 REPLACE GASTROSTOMY TUBE 97.02 02/16/09 RESPIRATORY VENTILATION, GREATER THAN 96 CONSECUTIVE HOURS [id number] 12/21/16 VENT MGMT INPAT INIT DAY 96846 12/21/16 VENT MGMT INPAT SUBQ DAY 21401 12/21/16 Internal Medicine Assmt/Plan - Assessment Assessment: possible pneumonia hyponatremia htn dysphagia peg status gastritis
--- NOTE | 2017-07-07 16:18 | History & Physical ---
ADMIT DATE: 07/07/2017 CHIEF COMPLAINT: Cough and fever. HISTORY OF PRESENT ILLNESS: This is a 61-year-old male who is a resident of [facility] who is brought here to [facility] for a 3-day history of cough and fever and congestion. For this reason, the patient is now admitted. PAST MEDICAL HISTORY: Severe intellectual disability, hypertension, dysphagia, anoxic encephalopathy, aspiration pneumonia, impulse control disorder, insomnia, gastritis, bipolar disorder and pseudobulbar affect. FAMILY HISTORY: Noncontributory. SOCIAL HISTORY: The patient is a long term resident, requiring 24-hour nursing care. PAST SURGICAL HISTORY: PEG. MEDICATIONS: Please see medication reconciliation. REVIEW OF SYSTEMS: Unable to obtain due to patient's mental status. PHYSICAL EXAMINATION: GENERAL: The patient is well developed, well nourished, no acute distress. VITAL SIGNS: Temperature 97.5, heart rate 70, blood pressure 147/93, respiration 18, O2 94%. HEENT: Head; normocephalic, atraumatic. NECK: Supple. No mass. LUNGS: Rhonchi bilaterally. HEART: Regular rate and rhythm. ABDOMEN: Soft and nontender. LABORATORY DATA: WBC 10.4, H and H 12.3 and 36.2, platelet of 370. Sodium 135, potassium 4.1, chloride 101, CO2 27.3, BUN 20, creatinine 0.6. The patient had a chest x-ray done and the impression is increased right lung linear markings favoring atelectatic changes and possible chronic lung changes, superimposed infiltrates, however, cannot be excluded. Please correlate with clinical findings. ASSESSMENT: Possible pneumonia, hypertension, gastritis, dysphagia, hyponatremia. PLAN: The patient will be admitted to the med/surg unit. The patient will be on IV Rocephin and IV fluids for hydration, inhalation treatments, supplemental oxygen as needed. We will continue to monitor this patient. [facility]# [id number]
[2017-07-07] MEDS: cefTRIAXone 1 GM in Sodium Chloride 0.9% 50 ML IV SCH (21:39)
[2017-07-08] MEDS: D5-0.45NS 1,000 ML IV SCH ×2 (05:23→17:37)
[2017-07-08 06:07] LABS: HEMATOCRIT 39.1 % (41.0-60); HEMOGLOBIN 13.3 gm/dL (12-16); MEAN CORPUSCULAR HEMOGLOBIN 32.3 pg (26.0-30.0); MEAN PLATELET VOLUME 9.6 fl; NEUTROPHILE ABSOLUTE 6.5 Th/cmm (1.8-8.0); PLATELET COUNT 385 Th/cmm (150-400); RED BLOOD COUNT 4.12 Mil/cmm (4.30-5.70); RED CELL DISTRIBUTION WIDTH 14.2 % (11.5-20.0); WHITE BLOOD COUNT 9.7 Th/cmm (4.8-10.8)
[2017-07-08 06:26] LABS: ANION GAP 10.3 (7.0-16.0); BUN - UREA NITROGEN 15 mg/dL (7-25); CALCIUM SERUM 9.4 mg/dL (8.6-10.3); CARBON DIOXIDE 29.6 mEq/L (21.0-31.0); CHLORIDE 104 mEq/L (98-107); CREATININE - SERUM 0.6 mg/dL (0.7-1.3); GLUCOSE 101 mg/dL (70-105); POTASSIUM SERUM 3.9 mEq/L (3.5-5.1); SODIUM SERUM 140 mEq/L (136-145)
[2017-07-08 07:05] LABS: BAND NEUTROPHILE 1 % (0-10); NEUTROPHILS 64 % (40-80); PLATELET ESTIMATE ADEQUATE (NORMAL); TOTAL CELLS COUNTED 100
[2017-07-08] MEDS: Ipratropium Neb 0.5 mg/2.5 mL UD IH SCH ×4 (08:01→19:45)
[2017-07-08] MEDS: Albuterol Nebulizer 2.5mg/3mL HHN SCH ×4 (08:01→19:42)
[2017-07-08] MEDS ORDERED: Diatrizoate Meglumine/Diatri 30 mL Sol PO ONE (10:02)
[2017-07-08] MEDS: Ascorbic Acid 500 mg/5 mL UDC GT SCH ×2 (10:23→18:59)
--- NOTE | 2017-07-08 10:37 | Diagnostic Imaging Report ---
Upper GI with Gastrografin HISTORY: G-tube confirmation COMPARISON: None FINDINGS: Calibration Engineer view demonstrates generalized gas-filled loops of bowel. The second image demonstrates contrast opacification of the stomach. IMPRESSION: Intraluminal confirmation of patient's percutaneous gastric feeding tube.
--- NOTE | 2017-07-08 11:37 | Diagnostic Imaging Report ---
Exam: Portable chest x-ray. HISTORY: Pain. Findings: Portable examination of the chest at 0806 hours reviewed no prior studies available for comparison. Bony thorax remarkable for degenerative changes. Mediastinal structures midline. The heart is not enlarged costophrenic angles are clear. No acute pulmonic infiltrates identified. Mild congestion cannot be excluded. IMPRESSION: No acute infiltrate, mild congestion cannot be excluded follow-up examination recommended if clinically indicated.
--- NOTE | 2017-07-08 12:32 | Operative Report ---
DATE OF SURGERY: 07/08/2017 INPATIENT GASTROINTESTINAL PROCEDURE NAME OF PROCEDURE: G-tube change. REFERRING PHYSICIAN: Dr. Thomas. REASON FOR PROCEDURE: Malfunctioning G-tube, dysphagia. PREOPERATIVE DIAGNOSES: Malfunctioning G-tube, dysphagia. POSTOPERATIVE DIAGNOSIS: New 20-Filipino gastrostomy tube placed. DESCRIPTION OF PROCEDURE: The patient was placed on his back. The old G-tube was identified. It was a 20-Filipino gastrostomy tube. It was removed after deflating the internal balloon. Of note, the balloon seemed to be overinflated because we take out more fluid than what was lifted on the feeding tube. After balloon was deflated, the tube was pulled out. At this point, a new 20-Filip[place] gastrostomy tube was lubricated at the tip inserted through the gastrocutaneous fistula entering into stomach lumen. Internal balloon was inflated with 15 mL of sterile saline. The outer phalange was secured in position. Procedure was then completed. COMPLICATIONS: None. FINDINGS: New 20-Filipino gastrostomy tube placed. RECOMMENDATIONS: 1. Upper GI series confirmed placement in the stomach. 2. If it is in stomach, may begin using it. Thank you for allowing me to participate. Please call me if any questions. JOB# [id number]
--- NOTE | 2017-07-08 12:38 | Internal Medicine Prog Note ---
Internal Medicine Subjective - Subjective Service Date: 07/08/17 Patient seen and examined:: with staff Patient is:: awake, verbal Per staff patient has:: tolerating meds Internal Medicine Objective - Results Result Diagrams: 07/08/17 05:15 07/08/17 05:15 Recent Labs: Laboratory Last Values WBC 9.7 Th/cmm (4.8-10.8) 07/08/17 05:15 RBC 4.12 Mil/cmm (4.30-5.70) L 07/08/17 05:15 Hgb 13.3 gm/dL (12-16) 07/08/17 05:15 Hct 39.1 % (41.0-60) L 07/08/17 05:15 MCV 95.0 fl (80-99) 07/08/17 05:15 MCH 32.3 pg (26.0-30.0) H 07/08/17 05:15 MCHC Differential 34.0 pg (28.0-36.0) 07/08/17 05:15 RDW 14.2 % (11.5-20.0) 07/08/17 05:15 Plt Count 385 Th/cmm (150-400) 07/08/17 05:15 MPV 9.6 fl 07/08/17 05:15 Band Neutrophils % 1 % (0-10) 07/08/17 05:15 Neutrophils (Manual) 64 % (40-80) 07/08/17 05:15 Lymphocytes 17 % (20-50) L 07/08/17 05:15 Monocytes 18 % (2-10) H 07/08/17 05:15 Eosinophils 0 % (0-5) 07/06/17 18:29 Basophils 0 % (0-3) 07/06/17 18:29 Nucleated RBCs 1.0 % (0-0) H 07/08/17 05:15 Platelet Estimate ADEQUATE (NORMAL) 07/08/17 05:15 Platelet Morphology NORMAL (NORMAL) 07/06/17 18:29 RBC Morph Micro Appear NORMAL (NORMAL) 07/06/17 18:29 PT 10.1 SECONDS (9.5-11.5) 07/06/17 18:29 INR 0.97 (0.5-1.4) 07/06/17 18:29 Sodium 140 mEq/L (136-145) 07/08/17 05:15 Potassium 3.9 mEq/L (3.5-5.1) 07/08/17 05:15 Chloride 104 mEq/L (98-107) 07/08/17 05:15 Carbon Dioxide 29.6 mEq/L (21.0-31.0) 07/08/17 05:15 Anion Gap 10.3 (7.0-16.0) 07/08/17 05:15 BUN 15 mg/dL (7-25) 07/08/17 05:15 Creatinine 0.6 mg/dL (0.7-1.3) L 07/08/17 05:15 Est GFR ( Amer) > 60.0 ml/min (>90) 07/08/17 05:15 Est GFR (Non-Af Amer) > 60.0 ml/min 07/08/17 05:15 BUN/Creatinine Ratio 25.0 07/08/17 05:15 Glucose 101 mg/dL (70-105) 07/08/17 05:15 Whole Bld Lactic Acid 1.73 mmol/L (0.60-1.99) 07/06/17 18:29 Calcium 9.4 mg/dL (8.6-10.3) 07/08/17 05:15 Total Bilirubin 0.5 mg/dL (0.3-1.0) 07/06/17 18:29 AST 14 U/L (13-39) 07/06/17 18:29 ALT 7 U/L (7-52) 07/06/17 18:29 Alkaline Phosphatase 95 U/L (34-104) 07/06/17 18:29 Creatine Kinase 14 U/L (30-223) L 07/06/17 18:29 Troponin I 0.01 ng/mL (0.01-0.05) 07/06/17 18:29 B-Natriuretic Peptide 42.1 pg/mL (5.0-100.0) 07/06/17 18:29 Total Protein 6.5 gm/dL (6.0-8.3) 07/06/17 18:29 Albumin 3.2 gm/dL (4.2-5.5) L 07/06/17 18:29 Globulin 3.3 gm/dL 07/06/17 18:29 Albumin/Globulin Ratio 1.0 (1.0-1.8) 07/06/17 18:29 Triglycerides 145 mg/dL (<150) 07/06/17 18:29 Cholesterol 160 mg/dL (<200) 07/06/17 18:29 LDL Cholesterol Direct 125 mg/dL (75-193) 07/06/17 18:29 HDL Cholesterol 26 mg/dL (23-92) 07/06/17 18:29 - Physical Exam Vitals and I&O: Vital Signs Temp 98.7 F 07/08/17 12:29 Pulse 109 07/08/17 12:29 Resp 20 07/08/17 12:29 BP 115/78 07/08/17 12:29 Pulse Ox 93 07/08/17 12:29 Intake & Output 07/07/17 07/08/17 07/08/17 18:59 06:59 18:59 Intake Total 1000 1050 Balance 1000 1050 Weight (lbs) 170 lb 163 lb 12.8 oz Intake: Intake, IV Amount 1000 1000 D5-0.45NS 1,000 ml @ 80 1000 1000 mls/hr IV .[id number] [facility] Rx #:[id number] Oral 0 Other 50 Other: # Voids 4 # Bowel Movements 0 Active Medications: Current Medications Acetaminophen (Tylenol 650mg/20.3ml Suspension) 650 mg GT Q4H PRN PRN Reason: PAIN OR TEMP >100 Stop: 09/04/17 19:46 Albuterol Sulfate (Albuterol 2.5mg/3ml Neb Ud) 2.5 mg HHN Q4H PRN PRN Reason: Congestion Stop: 09/04/17 19:46 Albuterol Sulfate (Albuterol 2.5mg/3ml Neb Ud) 2.5 mg HHN QIDRT [facility] Stop: 09/05/17 06:59 Last Admin: 07/08/17 11:34 Dose: 2.5 mg Ascorbic Acid (Vitamin C) 500 mg GT BID [facility] Stop: 09/05/17 08:59 Last Admin: 07/08/17 10:23 Dose: Not Given Atenolol (Tenormin) 25 mg GT DAILY [facility] Stop: 09/05/17 08:59 Last Admin: 07/07/17 12:01 Dose: Not Given Bisacodyl (Dulcolax 10 Mg Supp) 10 mg RC PRN PRN PRN Reason: IF MOM INEFFECTIVE Stop: 09/04/17 19:46 Calamine/Phenol (Calmoseptine) 1 appl TP TID PRN PRN Reason: HEALING Stop: 09/05/17 08:46 Calcium Carbonate (Tums) 1,250 mg GT DAILY [facility] Stop: 09/05/17 08:59 Last Admin: 07/07/17 12:02 Dose: Not Given Calcium Carbonate (Calcium Carb) 600 mg PO QID [facility] Stop: 09/05/17 08:59 Last Admin: 07/07/17 21:54 Dose: 600 mg Dextromethorphan/Quinidine (Nuedexta 20mg-10mg) 1 cap GT BID [facility] Stop: 09/05/17 08:59 Last Admin: 07/07/17 16:20 Dose: Not Given Fish Oil ([place] 3) 1,000 mg PO DAILY [facility] Stop: 09/05/17 08:59 Last Admin: 07/07/17 12:03 Dose: Not Given Ceftriaxone Sodium 1 gm/ (Sodium Chloride) 50 mls @ 100 mls/hr IV Q24HR [facility] Stop: 09/05/17 20:59 Last Admin: 07/07/17 21:39 Dose: 100 mls/hr Dextrose/Sodium Chloride (D5-0.45ns) 1,000 mls @ 80 mls/hr IV .[id number] [facility] Stop: 09/04/17 19:59 Last Admin: 07/08/17 05:23 Dose: 80 mls/hr Ipratropium [place] (Atrovent Neb 0.5mg/2.5ml) 0.5 mg HHN Q4HR PRN PRN Reason: Congestion Stop: 09/04/17 19:46 Ipratropium [place] (Atrovent Neb 0.5mg/2.5ml) 0.5 mg IH QIDRT [facility] Stop: 09/05/17 06:59 Last Admin: 07/08/17 11:34 Dose: 0.5 mg Lactobacillus Rhamnosus (Culturelle) 1 each GT DAILY [facility] Stop: 09/05/17 08:59 Last Admin: 07/07/17 12:04 Dose: Not Given Magnesium Hydroxide (Milk Of Magnesia) 30 ml GT Q72H PRN PRN Reason: NO BM (CONSTIPATION) Stop: 09/04/17 19:46 Multivitamins/Minerals (Theragran M) 15 ml GT DAILY [facility] Stop: 09/05/17 08:59 Last Admin: 07/07/17 10:22 Dose: Not Given Ondansetron HCl (Zofran) 4 mg IV Q8H PRN PRN Reason: Nausea / Vomiting Stop: 09/04/17 19:49 Pantoprazole Sodium (Protonix) 40 mg GT BID [facility] Stop: 09/05/17 08:59 Last Admin: 07/07/17 16:20 Dose: Not Given Polyethylene Glycol (Miralax) 17 gm GT DAILY PRN PRN Reason: Constipation Stop: 09/04/17 19:46 Quetiapine Fumarate (Seroquel) 200 mg GT QAM [facility] PRN Reason: Protocol Stop: 09/05/17 08:59 Last Admin: 07/07/17 12:05 Dose: Not Given Quetiapine Fumarate (Seroquel) 300 mg GT QPM [facility] PRN Reason: Protocol Stop: 09/05/17 16:59 Last Admin: 07/07/17 16:20 Dose: Not Given Sodium Phosphate (Fleet Enema) 135 ml RC PRN PRN PRN Reason: IF DULCOLAX INEFFECTIVE Stop: 09/04/17 19:46 Trazodone HCl (Desyrel) 25 mg GT HS [facility]UEL PRN Reason: Protocol Stop: 09/04/17 20:59 Last Admin: 07/07/17 21:54 Dose: 25 mg Valproate Sodium (Depakene) 625 mg GT DAILY [facility] PRN Reason: Protocol Stop: 09/05/17 08:59 Last Admin: 07/07/17 10:17 Dose: Not Given Valproate Sodium (Depakene) 750 mg GT HS [facility] Stop: 09/05/17 20:59 Last Admin: 07/07/17 21:54 Dose: 750 mg General: alert HEENT: NC/AT, PERRLA Neck: Supple Lungs: CTAB Cardiovascular: RRR, Normal S1, Normal S2, without murmur Abdomen: soft, non-tender, non-distended, +GT, positive bowel sound Extremities: excoriation Neurological: alert - Procedures Procedures: Procedures Procedure Code Date CHANGE FEEDING DEVICE IN UP INTEST TRACT, GEOLOGY FACULTY MEMBER APPROACH [id number] 05/29/17 CHANGE GASTROSTOMY TUBE 38227 05/29/[address] GASTROSTOMY TUBE 91667 02/16/09 INSERT EMERGENCY AIRWAY 83863 12/21/16 INSERTION OF ENDOTRACHEAL AIRWAY INTO TRACHEA, VIA OPENING [id number] 12/21/16 INSERTION OF INFUSION DEVICE INTO R ATRIUM, PERC APPROACH [id number] 12/21/16 OTHER ENDOSCOPY OF SM INTEST 45.13 02/16/09 REPLACE GASTROSTOMY TUBE 97.02 02/16/09 RESPIRATORY VENTILATION, GREATER THAN 96 CONSECUTIVE HOURS [id number] 12/21/16 VENT MGMT INPAT INIT DAY 57689 12/21/16 VENT MGMT INPAT SUBQ DAY 56518 12/21/16 Internal Medicine Assmt/Plan - Assessment Assessment: possible pneumonia hyponatremia htn dysphagia peg status gastritis - Plan Plan: aspiration precautions f/u cxr in am am labs inhalation treatments supplemental oxygen as needed empiric iv antibiotics continue current plan of care
--- NOTE | 2017-07-08 12:49 | Consultation ---
DATE OF CONSULTATION: 07/08/2017 INPATIENT GASTROINTESTINAL CONSULTATION REFERRING PHYSICIAN: Dr. hTomas. REASON FOR CONSULTATION: Malfunctioning G-tube and coffee ground emesis. HISTORY OF PRESENT ILLNESS: A 61-year-old male, resident of a skilled facility, was brought into the hospital for pneumonia. The patient was also noted to have malfunctioning G-tube and they asked GI to replace it. Also, they noted that the patient has some coffee-ground emesis. The patient does not report any abdominal pain, but is a poor historian. PAST MEDICAL HISTORY: Mental retardation, hypertension, dysphagia, anoxic encephalopathy, aspiration pneumonia, impulse control disorder, insomnia, gastritis, bipolar disorder. PAST SURGICAL HISTORY: Abdominal surgery and PEG tube placement. FAMILY HISTORY: Noncontributory. SOCIAL HISTORY: Resident of skilled facility. ALLERGIES: None. CURRENT MEDICATIONS: Tylenol, albuterol, vitamin C, Tenormin, Dulcolax, Tums, ceftriaxone, omega-3, Atrovent, milk of magnesia, Zofran, Protonix, MiraLax, Seroquel, Desyrel, Depakene. REVIEW OF SYSTEMS: Unobtainable. PHYSICAL EXAMINATION: VITAL SIGNS: Temperature 98.6, breathing 18, pulse of 66, blood pressure is 128/70, satting 94%. GENERAL: No apparent distress. EYES: Anicteric. HEENT: Normocephalic, atraumatic. NECK: Soft, supple. CHEST: Coarse breath sounds. CARDIOVASCULAR: Regular rate and rhythm. ABDOMEN: Soft and nontender. Has a G-tube and abdominal incisional scars. SKIN: Warm and dry. EXTREMITIES: Reveal no cyanosis. LABORATORY DATA: Show white count 9.7, hemoglobin 13.3, platelets of 385. LFTs within normal limits. IMPRESSION: A 61-year-old male with malfunctioning G-tube, underlying dysphagia, has a G-tube that likely need to be replaced with a new one, also had some coffee-ground emesis, which could be due to esophagitis, gastritis, peptic ulcer disease, etc. PLAN: 1. G-tube to be changed. 2. Will also need an EGD when there is consent. 3. Provide the patient with Protonix. Thank you for allowing me to participate. Please call me if any questions. JOB# [id number]
[2017-07-08] MEDS: Pantoprazole 40 mg/Packet GT SCH ×2 (14:25→17:16)
[2017-07-08] MEDS: Fish Oil 1,000 MG SGL PO SCH (14:25)
[2017-07-08] MEDS: Lactobacillus Rhamnosus 10 Billion CFU Capsule GT SCH (14:25)
[2017-07-08] MEDS: Dextromethorphan/Quinidine 20mg/10mg Cap GT SCH ×2 (14:25→17:15)
[2017-07-08] MEDS: Multivitamin w/ Minerals 15 mL UDC GT SCH (14:25)
[2017-07-08] MEDS: cefTRIAXone 1 GM in Sodium Chloride 0.9% 50 ML IV SCH (21:04)
[2017-07-09] MEDS: D5-0.45NS 1,000 ML IV SCH ×2 (04:44→16:39)
[2017-07-09 06:32] LABS: HEMATOCRIT 35.9 % (41.0-60); HEMOGLOBIN 12.2 gm/dL (12-16); MEAN CELL VOLUME 96.2 fl (80-99); MEAN CORPUSCULAR HEMOGLOBIN 32.7 pg (26.0-30.0); MEAN PLATELET VOLUME 9.1 fl; PLATELET COUNT 410 Th/cmm (150-400); RED BLOOD COUNT 3.73 Mil/cmm (4.30-5.70); RED CELL DISTRIBUTION WIDTH 14.1 % (11.5-20.0); WHITE BLOOD COUNT 10.8 Th/cmm (4.8-10.8)
[2017-07-09 07:16] LABS: ANION GAP 9.6 (7.0-16.0); BUN - UREA NITROGEN 14 mg/dL (7-25); BUN/CREATININE RATIO 23.3; CALCIUM SERUM 8.9 mg/dL (8.6-10.3); CHLORIDE 104 mEq/L (98-107); CREATININE - SERUM 0.6 mg/dL (0.7-1.3); GLUCOSE 90 mg/dL (70-105); POTASSIUM SERUM 3.6 mEq/L (3.5-5.1); SODIUM SERUM 138 mEq/L (136-145)
[2017-07-09 07:20] LABS: BAND NEUTROPHILE 2 % (0-10); NEUTROPHILS 56 % (40-80); TOTAL CELLS COUNTED 100
[2017-07-09] MEDS: Ipratropium Neb 0.5 mg/2.5 mL UD IH SCH ×4 (07:38→19:20)
[2017-07-09] MEDS: Albuterol Nebulizer 2.5mg/3mL HHN SCH ×4 (07:38→19:19)
[2017-07-09] MEDS: Pantoprazole 40 mg/Packet GT SCH ×2 (10:08→17:53)
[2017-07-09] MEDS: Dextromethorphan/Quinidine 20mg/10mg Cap GT SCH ×2 (10:08→17:57)
[2017-07-09] MEDS: Lactobacillus Rhamnosus 10 Billion CFU Capsule GT SCH (10:08)
[2017-07-09] MEDS: Fish Oil 1,000 MG SGL PO SCH (10:08)
[2017-07-09] MEDS: Multivitamin w/ Minerals 15 mL UDC GT SCH (10:17)
[2017-07-09] MEDS: Ascorbic Acid 500 mg/5 mL UDC GT SCH (10:18)
--- NOTE | 2017-07-09 14:28 | Internal Medicine Prog Note ---
Internal Medicine Subjective - Subjective Patient seen and examined:: with staff, chart reviewed Patient is:: awake, verbal Patient Complaints of:: congestion, cough Per staff patient has:: no adverse event, agitated, combative, noncompliant, tolerating meds Internal Medicine Objective - Results Result Diagrams: 07/09/17 06:15 07/09/17 06:15 Recent Labs: Laboratory Last Values WBC 10.8 Th/cmm (4.8-10.8) 07/09/17 06:15 RBC 3.73 Mil/cmm (4.30-5.70) L 07/09/17 06:15 Hgb 12.2 gm/dL (12-16) 07/09/17 06:15 Hct 35.9 % (41.0-60) L 07/09/17 06:15 MCV 96.2 fl (80-99) 07/09/17 06:15 MCH 32.7 pg (26.0-30.0) H 07/09/17 06:15 MCHC Differential 34.0 pg (28.0-36.0) 07/09/17 06:15 RDW 14.1 % (11.5-20.0) 07/09/17 06:15 Plt Count 410 Th/cmm (150-400) H 07/09/17 06:15 MPV 9.1 fl 07/09/17 06:15 Band Neutrophils % 2 % (0-10) 07/09/17 06:15 Neutrophils (Manual) 56 % (40-80) 07/09/17 06:15 Lymphocytes 30 % (20-50) 07/09/17 06:15 Monocytes 12 % (2-10) H 07/09/17 06:15 Eosinophils 0 % (0-5) 07/06/17 18:29 Basophils 0 % (0-3) 07/06/17 18:29 Nucleated RBCs 1.0 % (0-0) H 07/08/17 05:15 Platelet Estimate ADEQUATE (NORMAL) 07/08/17 05:15 Platelet Morphology NORMAL (NORMAL) 07/06/17 18:29 RBC Morph Micro Appear NORMAL (NORMAL) 07/06/17 18:29 PT 10.1 SECONDS (9.5-11.5) 07/06/17 18:29 INR 0.97 (0.5-1.4) 07/06/17 18:29 Sodium 138 mEq/L (136-145) 07/09/17 06:15 Potassium 3.6 mEq/L (3.5-5.1) 07/09/17 06:15 Chloride 104 mEq/L (98-107) 07/09/17 06:15 Carbon Dioxide 28.0 mEq/L (21.0-31.0) 07/09/17 06:15 Anion Gap 9.6 (7.0-16.0) 07/09/17 06:15 BUN 14 mg/dL (7-25) 07/09/17 06:15 Creatinine 0.6 mg/dL (0.7-1.3) L 07/09/17 06:15 Est GFR ( Amer) > 60.0 ml/min (>90) 07/09/17 06:15 Est GFR (Non-Af Amer) > 60.0 ml/min 07/09/17 06:15 BUN/Creatinine Ratio 23.3 07/09/17 06:15 Glucose 90 mg/dL (70-105) 07/09/17 06:15 Whole Bld Lactic Acid 1.73 mmol/L (0.60-1.99) 07/06/17 18:29 Calcium 8.9 mg/dL (8.6-10.3) 07/09/17 06:15 Total Bilirubin 0.5 mg/dL (0.3-1.0) 07/06/17 18:29 AST 14 U/L (13-39) 07/06/17 18:29 ALT 7 U/L (7-52) 07/06/17 18:29 Alkaline Phosphatase 95 U/L (34-104) 07/06/17 18:29 Creatine Kinase 14 U/L (30-223) L 07/06/17 18:29 Troponin I 0.01 ng/mL (0.01-0.05) 07/06/17 18:29 B-Natriuretic Peptide 42.1 pg/mL (5.0-100.0) 07/06/17 18:29 Total Protein 6.5 gm/dL (6.0-8.3) 07/06/17 18:29 Albumin 3.2 gm/dL (4.2-5.5) L 07/06/17 18:29 Globulin 3.3 gm/dL 07/06/17 18:29 Albumin/Globulin Ratio 1.0 (1.0-1.8) 07/06/17 18:29 Triglycerides 145 mg/dL (<150) 07/06/17 18:29 Cholesterol 160 mg/dL (<200) 07/06/17 18:29 LDL Cholesterol Direct 125 mg/dL (75-193) 07/06/17 18:29 HDL Cholesterol 26 mg/dL (23-92) 07/06/17 18:29 - Physical Exam Vitals and I&O: Vital Signs Temp 96.0 F 07/09/17 09:00 Pulse 83 07/09/17 11:28 Resp 19 07/09/17 11:45 BP 123/53 07/09/17 10:08 Pulse Ox 94 07/09/17 11:28 Intake & Output 07/08/17 07/09/17 07/09/17 18:59 06:59 18:59 Intake Total 899.122 3359.333 Balance 827.341 8467.333 Weight (lbs) 75.07 kg 74.843 kg Intake: Intake, IV Amount 978.667 939.333 D5-0.45NS 1,000 ml @ 80 978.667 889.333 mls/hr IV .[id number] [facility]END[facility] TO [facility] Rx #:[id number] cefTRIAXone 1 gm In 50 Sodium Chloride 0.9% 50 ml @ 100 mls/hr IV Q24HR [facility]END[facility] TO [facility] Rx#:[id number] Tube Feeding 600 Other 120 Other: # Voids 3 # Bowel Movements 2 Stool Characteristics Brown Active Medications: Current Medications Acetaminophen (Tylenol 650mg/20.3ml Suspension) 650 mg GT Q4H PRN PRN Reason: PAIN OR TEMP >100 Stop: 09/04/17 19:46 Last Admin: 07/09/17 02:20 Dose: 650 mg Albuterol Sulfate (Albuterol 2.5mg/3ml Neb Ud) 2.5 mg HHN Q4H PRN PRN Reason: Congestion Stop: 09/04/17 19:46 Albuterol Sulfate (Albuterol 2.5mg/3ml Neb Ud) 2.5 mg HHN QIDRT [facility]END[facility] TO [facility] Stop: 09/05/17 06:59 Last Admin: 07/09/17 11:26 Dose: 2.5 mg Ascorbic Acid (Vitamin C) 500 mg GT BID [facility] Stop: 09/05/17 08:59 Last Admin: 07/09/17 10:18 Dose: Not Given Atenolol (Tenormin) 25 mg GT DAILY [facility] Stop: 09/05/17 08:59 Last Admin: 07/09/17 10:08 Dose: 25 mg Bisacodyl (Dulcolax 10 Mg Supp) 10 mg RC PRN PRN PRN Reason: IF MOM INEFFECTIVE Stop: 09/04/17 19:46 Calamine/Phenol (Calmoseptine) 1 appl TP TID PRN PRN Reason: HEALING Stop: 09/05/17 08:46 Calcium Carbonate (Tums) 1,250 mg GT DAILY [facility] Stop: 09/05/17 08:59 Last Admin: 07/09/17 10:08 Dose: 1,250 mg Calcium Carbonate (Calcium Carb) 600 mg PO QID [facility] Stop: 09/05/17 08:59 Last Admin: 07/09/17 10:08 Dose: 600 mg Dextromethorphan/Quinidine (Nuedexta 20mg-10mg) 1 cap GT BID [facility] Stop: 09/05/17 08:59 Last Admin: 07/09/17 10:08 Dose: 1 cap Fish Oil ([place] 3) 1,000 mg PO DAILY [facility] Stop: 09/05/17 08:59 Last Admin: 07/09/17 10:08 Dose: 1,000 mg Ceftriaxone Sodium 1 gm/ (Sodium Chloride) 50 mls @ 100 mls/hr IV Q24HR [facility] Stop: 09/05/17 20:59 Last Infusion: 07/08/17 21:34 Dose: Infused Dextrose/Sodium Chloride (D5-0.45ns) 1,000 mls @ 80 mls/hr IV .[id number] [facility] Stop: 09/04/17 19:59 Last Admin: 07/09/17 04:44 Dose: 80 mls/hr Ipratropium [place] (Atrovent Neb 0.5mg/2.5ml) 0.5 mg HHN Q4HR PRN PRN Reason: Congestion Stop: 09/04/17 19:46 Ipratropium [place] (Atrovent Neb 0.5mg/2.5ml) 0.5 mg IH QIDRT [facility] Stop: 09/05/17 06:59 Last Admin: 07/09/17 11:29 Dose: 0.5 mg Lactobacillus Rhamnosus (Culturelle) 1 each GT DAILY [facility] Stop: 09/05/17 08:59 Last Admin: 07/09/17 10:08 Dose: 1 each Magnesium Hydroxide (Milk Of Magnesia) 30 ml GT Q72H PRN PRN Reason: NO BM (CONSTIPATION) Stop: 09/04/17 19:46 Multivitamins/Minerals (Theragran M) 15 ml GT DAILY [facility] Stop: 09/05/17 08:59 Last Admin: 07/09/17 10:17 Dose: Not Given Mupirocin (Bactroban Oint) 1 appl NS BID [facility] Stop: 07/13/17 09:01 Last Admin: 07/09/17 10:08 Dose: 1 appl Ondansetron HCl (Zofran) 4 mg IV Q8H PRN PRN Reason: Nausea / Vomiting Stop: 09/04/17 19:49 Pantoprazole Sodium (Protonix) 40 mg GT BID [facility] Stop: 09/05/17 08:59 Last Admin: 07/09/17 10:08 Dose: 40 mg Polyethylene Glycol (Miralax) 17 gm GT DAILY PRN PRN Reason: Constipation Stop: 09/04/17 19:46 Quetiapine Fumarate (Seroquel) 200 mg GT QAM [facility] PRN Reason: Protocol Stop: 09/05/17 08:59 Last Admin: 07/09/17 10:25 Dose: 200 mg Quetiapine Fumarate (Seroquel) 300 mg GT QPM [facility] PRN Reason: Protocol Stop: 09/05/17 16:59 Last Admin: 07/08/17 17:16 Dose: 300 mg Sodium Phosphate (Fleet Enema) 135 ml RC PRN PRN PRN Reason: IF DULCOLAX INEFFECTIVE Stop: 09/04/17 19:46 Trazodone HCl (Desyrel) 25 mg GT HS [facility] PRN Reason: Protocol Stop: 09/04/17 20:59 Last Admin: 07/08/17 21:04 Dose: 25 mg Valproate Sodium (Depakene) 625 mg GT DAILY [facility] PRN Reason: Protocol Stop: 09/05/17 08:59 Last Admin: 07/09/17 10:15 Dose: 625 mg Valproate Sodium (Depakene) 750 mg GT HS [facility] Stop: 09/05/17 20:59 Last Admin: 07/08/17 21:04 Dose: 750 mg General: alert HEENT: NC/AT, PERRLA Neck: Supple Lungs: CTAB Cardiovascular: RRR, Normal S1, Normal S2, without murmur Abdomen: soft, non-tender, non-distended, +GT, positive bowel sound Extremities: excoriation Neurological: alert - Procedures Procedures: Procedures Procedure Code Date CHANGE FEEDING DEVICE IN UP INTEST TRACT, CUSTOMER DEVELOPMENT REPRESENTATIVE APPROACH [id number] 05/29/17 CHANGE GASTROSTOMY TUBE 56349 05/29/[address] GASTROSTOMY TUBE 54219 02/16/09 INSERT EMERGENCY AIRWAY 00202 12/21/16 INSERTION OF ENDOTRACHEAL AIRWAY INTO TRACHEA, VIA OPENING [id number] 12/21/16 INSERTION OF INFUSION DEVICE INTO R ATRIUM, PERC APPROACH 41N722A 12/21/16 OTHER ENDOSCOPY OF SM INTEST 45.13 02/16/09 REPLACE GASTROSTOMY TUBE 97.02 02/16/09 RESPIRATORY VENTILATION, GREATER THAN 96 CONSECUTIVE HOURS [id number] 12/21/16 VENT MGMT INPAT INIT DAY 15034 12/21/16 VENT MGMT INPAT SUBQ DAY 87484 12/21/16 Internal Medicine Assmt/Plan - Assessment Assessment: possible pneumonia hyponatremia htn dysphagia peg status gastritis - Plan Plan: cont on he ashley cont on ivf cont on empiric abx aspirtation precaution shaggy rn
[2017-07-09] MEDS: cefTRIAXone 1 GM in Sodium Chloride 0.9% 50 ML IV SCH (21:07)
[2017-07-10] MEDS: D5-0.45NS 1,000 ML IV SCH ×2 (05:09→16:44)
[2017-07-10] MEDS: Ipratropium Neb 0.5 mg/2.5 mL UD IH SCH ×4 (07:19→19:20)
[2017-07-10] MEDS: Albuterol Nebulizer 2.5mg/3mL HHN SCH ×3 (07:19→15:37)
[2017-07-10] MEDS: Pantoprazole 40 mg/Packet GT SCH ×2 (09:58→16:14)
[2017-07-10] MEDS: Fish Oil 1,000 MG SGL PO SCH (09:59)
[2017-07-10] MEDS: Lactobacillus Rhamnosus 10 Billion CFU Capsule GT SCH (09:59)
[2017-07-10] MEDS: Dextromethorphan/Quinidine 20mg/10mg Cap GT SCH ×2 (09:59→16:13)
[2017-07-10] MEDS ORDERED: Multivitamin w/ Minerals Tab GT SCH (10:25)
--- NOTE | 2017-07-10 13:16 | Internal Medicine Prog Note ---
Internal Medicine Subjective - Subjective Patient seen and examined:: with staff, chart reviewed Patient is:: awake, verbal Patient Complaints of:: congestion, cough Per staff patient has:: no adverse event, agitated, combative, noncompliant, tolerating meds Internal Medicine Objective - Results Result Diagrams: 07/09/17 06:15 07/09/17 06:15 Recent Labs: Laboratory Last Values WBC 10.8 Th/cmm (4.8-10.8) 07/09/17 06:15 RBC 3.73 Mil/cmm (4.30-5.70) L 07/09/17 06:15 Hgb 12.2 gm/dL (12-16) 07/09/17 06:15 Hct 35.9 % (41.0-60) L 07/09/17 06:15 MCV 96.2 fl (80-99) 07/09/17 06:15 MCH 32.7 pg (26.0-30.0) H 07/09/17 06:15 MCHC Differential 34.0 pg (28.0-36.0) 07/09/17 06:15 RDW 14.1 % (11.5-20.0) 07/09/17 06:15 Plt Count 410 Th/cmm (150-400) H 07/09/17 06:15 MPV 9.1 fl 07/09/17 06:15 Band Neutrophils % 2 % (0-10) 07/09/17 06:15 Neutrophils (Manual) 56 % (40-80) 07/09/17 06:15 Lymphocytes 30 % (20-50) 07/09/17 06:15 Monocytes 12 % (2-10) H 07/09/17 06:15 Eosinophils 0 % (0-5) 07/06/17 18:29 Basophils 0 % (0-3) 07/06/17 18:29 Nucleated RBCs 1.0 % (0-0) H 07/08/17 05:15 Platelet Estimate ADEQUATE (NORMAL) 07/08/17 05:15 Platelet Morphology NORMAL (NORMAL) 07/06/17 18:29 RBC Morph Micro Appear NORMAL (NORMAL) 07/06/17 18:29 PT 10.1 SECONDS (9.5-11.5) 07/06/17 18:29 INR 0.97 (0.5-1.4) 07/06/17 18:29 Sodium 138 mEq/L (136-145) 07/09/17 06:15 Potassium 3.6 mEq/L (3.5-5.1) 07/09/17 06:15 Chloride 104 mEq/L (98-107) 07/09/17 06:15 Carbon Dioxide 28.0 mEq/L (21.0-31.0) 07/09/17 06:15 Anion Gap 9.6 (7.0-16.0) 07/09/17 06:15 BUN 14 mg/dL (7-25) 07/09/17 06:15 Creatinine 0.6 mg/dL (0.7-1.3) L 07/09/17 06:15 Est GFR ( Amer) > 60.0 ml/min (>90) 07/09/17 06:15 Est GFR (Non-Af Amer) > 60.0 ml/min 07/09/17 06:15 BUN/Creatinine Ratio 23.3 07/09/17 06:15 Glucose 90 mg/dL (70-105) 07/09/17 06:15 Whole Bld Lactic Acid 1.73 mmol/L (0.60-1.99) 07/06/17 18:29 Calcium 8.9 mg/dL (8.6-10.3) 07/09/17 06:15 Total Bilirubin 0.5 mg/dL (0.3-1.0) 07/06/17 18:29 AST 14 U/L (13-39) 07/06/17 18:29 ALT 7 U/L (7-52) 07/06/17 18:29 Alkaline Phosphatase 95 U/L (34-104) 07/06/17 18:29 Creatine Kinase 14 U/L (30-223) L 07/06/17 18:29 Troponin I 0.01 ng/mL (0.01-0.05) 07/06/17 18:29 B-Natriuretic Peptide 42.1 pg/mL (5.0-100.0) 07/06/17 18:29 Total Protein 6.5 gm/dL (6.0-8.3) 07/06/17 18:29 Albumin 3.2 gm/dL (4.2-5.5) L 07/06/17 18:29 Globulin 3.3 gm/dL 07/06/17 18:29 Albumin/Globulin Ratio 1.0 (1.0-1.8) 07/06/17 18:29 Triglycerides 145 mg/dL (<150) 07/06/17 18:29 Cholesterol 160 mg/dL (<200) 07/06/17 18:29 LDL Cholesterol Direct 125 mg/dL (75-193) 07/06/17 18:29 HDL Cholesterol 26 mg/dL (23-92) 07/06/17 18:29 - Physical Exam Vitals and I&O: Vital Signs Temp 97.8 F 07/10/17 12:00 Pulse 80 07/10/17 12:00 Resp 17 07/10/17 12:00 BP 107/58 07/10/17 12:00 Pulse Ox 100 07/10/17 12:00 Intake & Output 07/09/17 07/10/17 07/10/17 18:59 06:59 18:59 Intake Total 023.555 5475 Balance 548.788 9624 Weight (lbs) 74.843 kg 74.843 kg Intake: Intake, IV Amount 122.796 8138 D5-0.45NS 1,000 ml @ 80 100.580 0024 mls/hr IV .[id number] [facility] Rx #:[id number] Tube Feeding 600 Other: # Voids 2 # Bowel Movements 0 Stool Characteristics Brown Brown Active Medications: Current Medications Acetaminophen (Tylenol 650mg/20.3ml Suspension) 650 mg GT Q4H PRN PRN Reason: PAIN OR TEMP >100 Stop: 09/04/17 19:46 Last Admin: 07/09/17 02:20 Dose: 650 mg Albuterol Sulfate (Albuterol 2.5mg/3ml Neb Ud) 2.5 mg HHN Q4H PRN PRN Reason: Congestion Stop: 09/04/17 19:46 Albuterol Sulfate (Albuterol 2.5mg/3ml Neb Ud) 2.5 mg HHN QIDRT [facility] Stop: 09/05/17 06:59 Last Admin: 07/10/17 11:23 Dose: 2.5 mg Ascorbic Acid (Vitamin C) 500 mg GT BID [facility] Stop: 09/05/17 08:59 Atenolol (Tenormin) 25 mg GT DAILY [facility] Stop: 09/05/17 08:59 Last Admin: 07/10/17 09:59 Dose: 25 mg Bisacodyl (Dulcolax 10 Mg Supp) 10 mg RC PRN PRN PRN Reason: IF MOM INEFFECTIVE Stop: 09/04/17 19:46 Calamine/Phenol (Calmoseptine) 1 appl TP TID PRN PRN Reason: HEALING Stop: 09/05/17 08:46 Calcium Carbonate (Tums) 1,250 mg GT DAILY [facility] Stop: 09/05/17 08:59 Last Admin: 07/10/17 09:59 Dose: 1,250 mg Calcium Carbonate (Calcium Carb) 600 mg PO QID [facility] Stop: 09/05/17 08:59 Last Admin: 07/10/17 13:07 Dose: 600 mg Dextromethorphan/Quinidine (Nuedexta 20mg-10mg) 1 cap GT BID [facility] Stop: 09/05/17 08:59 Last Admin: 07/10/17 09:59 Dose: 1 cap Fish Oil ([place] 3) 1,000 mg PO DAILY [facility] Stop: 09/05/17 08:59 Last Admin: 07/10/17 09:59 Dose: 1,000 mg Ceftriaxone Sodium 1 gm/ (Sodium Chloride) 50 mls @ 100 mls/hr IV Q24HR [facility] Stop: 09/05/17 20:59 Last Admin: 07/09/17 21:07 Dose: 100 mls/hr Dextrose/Sodium Chloride (D5-0.45ns) 1,000 mls @ 80 mls/hr IV .[id number] [facility] Stop: 09/04/17 19:59 Last Admin: 07/10/17 05:09 Dose: 80 mls/hr Ipratropium [place] (Atrovent Neb 0.5mg/2.5ml) 0.5 mg HHN Q4HR PRN PRN Reason: Congestion Stop: 09/04/17 19:46 Ipratropium [place] (Atrovent Neb 0.5mg/2.5ml) 0.5 mg IH QIDRT [facility] Stop: 09/05/17 06:59 Last Admin: 07/10/17 11:24 Dose: 0.5 mg Lactobacillus Rhamnosus (Culturelle) 1 each GT DAILY [facility] Stop: 09/05/17 08:59 Last Admin: 07/10/17 09:59 Dose: 1 each Magnesium Hydroxide (Milk Of Magnesia) 30 ml GT Q72H PRN PRN Reason: NO BM (CONSTIPATION) Stop: 09/04/17 19:46 Mupirocin (Bactroban Oint) 1 appl NS BID [facility] Stop: 07/13/17 09:01 Last Admin: 07/10/17 13:07 Dose: 1 appl Ondansetron HCl (Zofran) 4 mg IV Q8H PRN PRN Reason: Nausea / Vomiting Stop: 09/04/17 19:49 Pantoprazole Sodium (Protonix) 40 mg GT BID [facility] Stop: 09/05/17 08:59 Last Admin: 07/10/17 09:58 Dose: 40 mg Polyethylene Glycol (Miralax) 17 gm GT DAILY PRN PRN Reason: Constipation Stop: 09/04/17 19:46 Quetiapine Fumarate (Seroquel) 200 mg GT QAM [facility] PRN Reason: Protocol Stop: 09/05/17 08:59 Last Admin: 07/10/17 09:58 Dose: 200 mg Quetiapine Fumarate (Seroquel) 300 mg GT QPM [facility] PRN Reason: Protocol Stop: 09/05/17 16:59 Last Admin: 07/09/17 17:53 Dose: 300 mg Sodium Phosphate (Fleet Enema) 135 ml RC PRN PRN PRN Reason: IF DULCOLAX INEFFECTIVE Stop: 09/04/17 19:46 Trazodone HCl (Desyrel) 25 mg GT HS [facility] PRN Reason: Protocol Stop: 09/04/17 20:59 Last Admin: 07/09/17 20:58 Dose: 25 mg Valproate Sodium (Depakene) 625 mg GT DAILY [facility] PRN Reason: Protocol Stop: 09/05/17 08:59 Last Admin: 07/10/17 10:50 Dose: 625 mg Valproate Sodium (Depakene) 750 mg GT HS [facility] Stop: 09/05/17 20:59 Last Admin: 07/09/17 20:57 Dose: 750 mg General: alert HEENT: NC/AT, PERRLA Neck: Supple Lungs: CTAB Cardiovascular: RRR, Normal S1, Normal S2, without murmur Abdomen: soft, non-tender, non-distended, +GT, positive bowel sound Extremities: excoriation Neurological: alert - Procedures Procedures: Procedures Procedure Code Date CHANGE FEEDING DEVICE IN UP INTEST TRACT, DRIVER MESSENGER APPROACH [id number] 05/29/17 CHANGE GASTROSTOMY TUBE 13507 05/29/[address] GASTROSTOMY TUBE 47986 02/16/09 INSERT EMERGENCY AIRWAY 01005 12/21/16 INSERTION OF ENDOTRACHEAL AIRWAY INTO TRACHEA, VIA OPENING [id number] 12/21/16 INSERTION OF INFUSION DEVICE INTO R [facility], PERC APPROACH [id number] 12/21/16 OTHER ENDOSCOPY OF SM INTEST 45.13 02/16/09 REPLACE GASTROSTOMY TUBE 97.02 02/16/09 RESPIRATORY VENTILATION, GREATER THAN 96 CONSECUTIVE HOURS [id number] 12/21/16 VENT MGMT INPAT INIT DAY 87008 12/21/16 VENT MGMT INPAT SUBQ DAY 14598 12/21/16 Internal Medicine Assmt/Plan - Assessment Assessment: possible pneumonia hyponatremia htn dysphagia peg status gastritis - Plan Plan: cont on he ashley cont on ivf cont on empiric abx aspirtation precaution shaggy rn
[2017-07-10] MEDS: cefTRIAXone 1 GM in Sodium Chloride 0.9% 50 ML IV SCH (21:50)
[2017-07-11] MEDS: D5-0.45NS 1,000 ML IV SCH (05:16)
[2017-07-11] MEDS: Albuterol Nebulizer 2.5mg/3mL HHN SCH ×3 (07:08→15:42)
[2017-07-11] MEDS: Ipratropium Neb 0.5 mg/2.5 mL UD IH SCH ×3 (07:08→15:42)
--- NOTE | 2017-07-11 09:52 | Diagnostic Imaging Report ---
Portable chest x-ray HISTORY: Shortness of breath, pneumonia The heart size is difficult to assess with portable technique in a very poor inspiration, but appears to be enlarged. There is generalized haziness of the interstitial lung markings. This may be related to poor inspiration. A mild degree of congestive heart failure cannot be excluded. Clinical correlation is needed. IMPRESSION: 1. Cardiomegaly with haziness of the interstitial lung markings. A mild degree of congestive heart failure cannot be excluded. Clinical correlation is needed. No definite focal processes.
[2017-07-11] MEDS: Dextromethorphan/Quinidine 20mg/10mg Cap GT SCH ×2 (10:13→16:43)
[2017-07-11] MEDS: Lactobacillus Rhamnosus 10 Billion CFU Capsule GT SCH (10:13)
[2017-07-11] MEDS: Fish Oil 1,000 MG SGL PO SCH (10:13)
[2017-07-11] MEDS: Pantoprazole 40 mg/Packet GT SCH ×2 (10:14→16:43)
--- NOTE | 2017-07-11 14:22 | Internal Medicine Prog Note ---
Internal Medicine Subjective - Subjective Patient seen and examined:: with staff, chart reviewed Patient is:: awake, verbal Patient Complaints of:: congestion, cough Per staff patient has:: no adverse event, agitated, combative, noncompliant, tolerating meds Internal Medicine Objective - Results Result Diagrams: 07/09/17 06:15 07/09/17 06:15 Recent Labs: Laboratory Last Values WBC 10.8 Th/cmm (4.8-10.8) 07/09/17 06:15 RBC 3.73 Mil/cmm (4.30-5.70) L 07/09/17 06:15 Hgb 12.2 gm/dL (12-16) 07/09/17 06:15 Hct 35.9 % (41.0-60) L 07/09/17 06:15 MCV 96.2 fl (80-99) 07/09/17 06:15 MCH 32.7 pg (26.0-30.0) H 07/09/17 06:15 MCHC Differential 34.0 pg (28.0-36.0) 07/09/17 06:15 RDW 14.1 % (11.5-20.0) 07/09/17 06:15 Plt Count 410 Th/cmm (150-400) H 07/09/17 06:15 MPV 9.1 fl 07/09/17 06:15 Band Neutrophils % 2 % (0-10) 07/09/17 06:15 Neutrophils (Manual) 56 % (40-80) 07/09/17 06:15 Lymphocytes 30 % (20-50) 07/09/17 06:15 Monocytes 12 % (2-10) H 07/09/17 06:15 Eosinophils 0 % (0-5) 07/06/17 18:29 Basophils 0 % (0-3) 07/06/17 18:29 Nucleated RBCs 1.0 % (0-0) H 07/08/17 05:15 Platelet Estimate ADEQUATE (NORMAL) 07/08/17 05:15 Platelet Morphology NORMAL (NORMAL) 07/06/17 18:29 RBC Morph Micro Appear NORMAL (NORMAL) 07/06/17 18:29 PT 10.1 SECONDS (9.5-11.5) 07/06/17 18:29 INR 0.97 (0.5-1.4) 07/06/17 18:29 Sodium 138 mEq/L (136-145) 07/09/17 06:15 Potassium 3.6 mEq/L (3.5-5.1) 07/09/17 06:15 Chloride 104 mEq/L (98-107) 07/09/17 06:15 Carbon Dioxide 28.0 mEq/L (21.0-31.0) 07/09/17 06:15 Anion Gap 9.6 (7.0-16.0) 07/09/17 06:15 BUN 14 mg/dL (7-25) 07/09/17 06:15 Creatinine 0.6 mg/dL (0.7-1.3) L 07/09/17 06:15 Est GFR ( Amer) > 60.0 ml/min (>90) 07/09/17 06:15 Est GFR (Non-Af Amer) > 60.0 ml/min 07/09/17 06:15 BUN/Creatinine Ratio 23.3 07/09/17 06:15 Glucose 90 mg/dL (70-105) 07/09/17 06:15 Whole Bld Lactic Acid 1.73 mmol/L (0.60-1.99) 07/06/17 18:29 Calcium 8.9 mg/dL (8.6-10.3) 07/09/17 06:15 Total Bilirubin 0.5 mg/dL (0.3-1.0) 07/06/17 18:29 AST 14 U/L (13-39) 07/06/17 18:29 ALT 7 U/L (7-52) 07/06/17 18:29 Alkaline Phosphatase 95 U/L (34-104) 07/06/17 18:29 Creatine Kinase 14 U/L (30-223) L 07/06/17 18:29 Troponin I 0.01 ng/mL (0.01-0.05) 07/06/17 18:29 B-Natriuretic Peptide 42.1 pg/mL (5.0-100.0) 07/06/17 18:29 Total Protein 6.5 gm/dL (6.0-8.3) 07/06/17 18:29 Albumin 3.2 gm/dL (4.2-5.5) L 07/06/17 18:29 Globulin 3.3 gm/dL 07/06/17 18:29 Albumin/Globulin Ratio 1.0 (1.0-1.8) 07/06/17 18:29 Triglycerides 145 mg/dL (<150) 07/06/17 18:29 Cholesterol 160 mg/dL (<200) 07/06/17 18:29 LDL Cholesterol Direct 125 mg/dL (75-193) 07/06/17 18:29 HDL Cholesterol 26 mg/dL (23-92) 07/06/17 18:29 - Physical Exam Vitals and I&O: Vital Signs Temp 97.9 F 07/11/17 12:03 Pulse 84 07/11/17 12:03 Resp 16 07/11/17 12:51 BP 111/65 07/11/17 12:03 Pulse Ox 95 07/11/17 12:03 Intake & Output 07/10/17 07/11/17 07/11/17 18:59 06:59 18:59 Intake Total 550.552 4743.333 Balance 812.845 1547.333 Weight (lbs) 75.75 kg Intake: Intake, IV Amount 139.201 5865.333 D5-0.45NS 1,000 ml @ 80 605.439 6496.333 mls/hr IV .[id number] [facility] Rx #:[id number] cefTRIAXone 1 gm In 50 Sodium Chloride 0.9% 50 ml @ 100 mls/hr IV Q24HR [facility] Rx#:[id number] Tube Feeding 600 Other: # Voids 4 # Bowel Movements 1 Stool Characteristics Brown Active Medications: Current Medications Acetaminophen (Tylenol 650mg/20.3ml Suspension) 650 mg GT Q4H PRN PRN Reason: PAIN OR TEMP >100 Stop: 09/04/17 19:46 Last Admin: 07/09/17 02:20 Dose: 650 mg Albuterol Sulfate (Albuterol 2.5mg/3ml Neb Ud) 2.5 mg HHN Q4H PRN PRN Reason: Congestion Stop: 09/04/17 19:46 Albuterol Sulfate (Albuterol 2.5mg/3ml Neb Ud) 2.5 mg HHN QIDRT [facility] Stop: 09/05/17 06:59 Last Admin: 07/11/17 10:33 Dose: 2.5 mg Ascorbic Acid (Vitamin C) 500 mg GT BID [facility] Stop: 09/05/17 08:59 Last Admin: 07/11/17 10:15 Dose: 500 mg Atenolol (Tenormin) 25 mg GT DAILY [facility] Stop: 09/05/17 08:59 Last Admin: 07/11/17 10:14 Dose: 25 mg Bisacodyl (Dulcolax 10 Mg Supp) 10 mg RC PRN PRN PRN Reason: IF MOM INEFFECTIVE Stop: 09/04/17 19:46 Calamine/Phenol (Calmoseptine) 1 appl TP TID PRN PRN Reason: HEALING Stop: 09/05/17 08:46 Calcium Carbonate (Tums) 1,250 mg GT DAILY [facility] Stop: 09/05/17 08:59 Last Admin: 07/11/17 10:13 Dose: 1,250 mg Calcium Carbonate (Calcium Carb) 600 mg PO QID [facility] Stop: 09/05/17 08:59 Last Admin: 07/11/17 10:15 Dose: 600 mg Dextromethorphan/Quinidine (Nuedexta 20mg-10mg) 1 cap GT BID [facility] Stop: 09/05/17 08:59 Last Admin: 07/11/17 10:13 Dose: 1 cap Fish Oil ([place] 3) 1,000 mg PO DAILY [facility] Stop: 09/05/17 08:59 Last Admin: 07/11/17 10:13 Dose: 1,000 mg Ceftriaxone Sodium 1 gm/ (Sodium Chloride) 50 mls @ 100 mls/hr IV Q24HR [facility] Stop: 09/05/17 20:59 Last Infusion: 07/11/17 06:26 Dose: Infused Dextrose/Sodium Chloride (D5-0.45ns) 1,000 mls @ 80 mls/hr IV .[id number] [facility] Stop: 09/04/17 19:59 Last Infusion: 07/11/17 06:26 Dose: 80 mls/hr Ipratropium [place] (Atrovent Neb 0.5mg/2.5ml) 0.5 mg HHN Q4HR PRN PRN Reason: Congestion Stop: 09/04/17 19:46 Last Admin: 07/10/17 19:21 Dose: 0.5 mg Ipratropium [place] (Atrovent Neb 0.5mg/2.5ml) 0.5 mg IH QIDRT [facility] Stop: 09/05/17 06:59 Last Admin: 07/11/17 10:33 Dose: 0.5 mg Lactobacillus Rhamnosus (Culturelle) 1 each GT DAILY [facility] Stop: 09/05/17 08:59 Last Admin: 07/11/17 10:13 Dose: 1 each Magnesium Hydroxide (Milk Of Magnesia) 30 ml GT Q72H PRN PRN Reason: NO BM (CONSTIPATION) Stop: 09/04/17 19:46 Mupirocin (Bactroban Oint) 1 appl NS BID [facility] Stop: 07/13/17 09:01 Last Admin: 07/11/17 10:13 Dose: 1 appl Ondansetron HCl (Zofran) 4 mg IV Q8H PRN PRN Reason: Nausea / Vomiting Stop: 09/04/17 19:49 Pantoprazole Sodium (Protonix) 40 mg GT BID [facility] Stop: 09/05/17 08:59 Last Admin: 07/11/17 10:14 Dose: 40 mg Polyethylene Glycol (Miralax) 17 gm GT DAILY PRN PRN Reason: Constipation Stop: 09/04/17 19:46 Quetiapine Fumarate (Seroquel) 200 mg GT QAM [facility] PRN Reason: Protocol Stop: 09/05/17 08:59 Last Admin: 07/11/17 10:14 Dose: 200 mg Quetiapine Fumarate (Seroquel) 300 mg GT QPM [facility] PRN Reason: Protocol Stop: 09/05/17 16:59 Last Admin: 07/10/17 16:13 Dose: 300 mg Sodium Phosphate (Fleet Enema) 135 ml RC PRN PRN PRN Reason: IF DULCOLAX INEFFECTIVE Stop: 09/04/17 19:46 Trazodone HCl (Desyrel) 25 mg GT HS [facility] PRN Reason: Protocol Stop: 09/04/17 20:59 Last Admin: 07/10/17 21:59 Dose: 25 mg Valproate Sodium (Depakene) 625 mg GT DAILY [facility] PRN Reason: Protocol Stop: 09/05/17 08:59 Last Admin: 07/11/17 10:15 Dose: 625 mg Valproate Sodium (Depakene) 750 mg GT HS [facility] Stop: 09/05/17 20:59 Last Admin: 07/10/17 22:01 Dose: 750 mg General: alert HEENT: NC/AT, PERRLA Neck: Supple Lungs: CTAB Cardiovascular: RRR, Normal S1, Normal S2, without murmur Abdomen: soft, non-tender, non-distended, +GT, positive bowel sound Extremities: excoriation Neurological: alert, disorganized, unsteady, bedbound - Procedures Procedures: Procedures Procedure Code Date CHANGE FEEDING DEVICE IN UP INTEST TRACT, LEAVE MANAGER APPROACH [id number] 07/06/17 CHANGE GASTROSTOMY TUBE 24531 07/06/[address] GASTROSTOMY TUBE 48312 02/16/09 INSERT EMERGENCY AIRWAY 88977 12/21/16 INSERTION OF ENDOTRACHEAL AIRWAY INTO TRACHEA, VIA OPENING [id number] 12/21/16 INSERTION OF INFUSION DEVICE INTO R [facility], PERC APPROACH 77U038B 12/21/16 OTHER ENDOSCOPY OF SM INTEST 45.13 02/16/09 REPLACE GASTROSTOMY TUBE 97.02 02/16/09 RESPIRATORY VENTILATION, GREATER THAN 96 CONSECUTIVE HOURS [id number] 12/21/16 VENT MGMT INPAT INIT DAY 19453 12/21/16 VENT MGMT INPAT SUBQ DAY 99077 12/21/16 Internal Medicine Assmt/Plan - Assessment Assessment: possible pneumonia hyponatremia htn dysphagia peg status gastritis - Plan Plan: cont on he ashley cont on ivf cont on empiric abx aspirtation precaution shaggy sue
[2017-07-11] MEDS ORDERED: Sodium Chloride 0.9% 1,000 ML IV ONE (15:00)
--- NOTE | 2017-07-11 21:21 | Consultation ---
DATE OF CONSULTATION: 07/11/2017 INPATIENT GASTROINTESTINAL PROCEDURE NAME OF PROCEDURE: EGD with biopsy. REFERRING PHYSICIAN: Dr. Thomas. REASON FOR PROCEDURE: Hematemesis. CONSENT: Risks, benefits, alternatives, nature, indication, possible outcomes were discussed, to mention bleeding, infection, perforation, , disability, cardiopulmonary distress and arrest, missed lesion and cancers, need for surgery. The patient agreed provided informed consent. PREOPERATIVE DIAGNOSIS: Hematemesis. POSTOPERATIVE DIAGNOSES: Gastritis and G-tube balloon type. MEDICATIONS: MAC provided by anesthesiologist. PROCEDURE: The patient was placed on the left side. Upper endoscope advanced from mouth to the second portion of duodenum. The scope was pulled back in the stomach. Retroflexion view of fundus, cardia, lesser curvature. Scope was straightened. G-tube balloon type was seen and appeared to be normal, mild gastritis was seen. Biopsies taken. Scope was then removed. COMPLICATIONS: None. FINDINGS: 1. GE junction at 40 cm with a normal appearing esophagus. 2. Normal duodenum. 3. Balloon type G-tube intact. 4. Mild gastritis, status post biopsy. RECOMMENDATIONS: 1. To use G-tube for tube feeds as needed. 2. Continue Protonix. 3. Follow H and H. 4. Follow up on biopsy. 5. Treat if H. pylori is positive. Thank you for allowing me to participate. Please call me if any questions. JOB# [id number]
--- NOTE | 2017-07-13 14:05 | Pathology Report ---
[id number] Collection Date: 07/11/2017 Surgeon: Dr. Trang Bloom Specimen Description: Antrum biopsy Gross Description: Received in formalin are two prieto soft tissue fragments ranging from 0.1 to 0.2 cm in greatest dimension. Totally submitted in one cassette. Microscopic Description: The histologic sections show gastric mucosa with chronic inflammation present consisting of lymphocytes and plasma cells. The Giemsa stain shows no evidence for Helicobacter pylori. Diagnosis: 1. Chronic gastritis, antrum biopsy. 2. The Giemsa stain is negative for Helicobacter pylori. [facility]# [id number] [facility]
--- NOTE | 2017-07-21 17:24 | Discharge Summary ---
DATE OF DISCHARGE: 07/11/2017 HOSPITAL COURSE: The patient was admitted to [facility] on 07/06/2017. The patient was discharged to ____ on 07/11/2017. This is a 61-year-old male patient. He is a resident of ____ [facility], who was brought to the ER with cough, fever, congestion. The patient was admitted for possible pneumonia, hypertension, gastritis, dysphagia, hyponatremia. The patient was treated with IV antibiotics, the patient improved. This patient did not have psych problem, he basically came in for cough, fever, pneumonia, and was treated. The patient got better and the patient was discharged home in stable condition on 07/11/2017 with few antibiotics. I will follow the patient. The patient was given appointment. MEDICATIONS: See the reconciliation sheet. JOB# [id number]
== END 2017-07-11 18:00 | disposition home or self-care (01) | DRG 393 ==
LOC: ER 17:51 → MSI 20:30
PROVIDERS: ADMIT Internal Medicine; ATTEND Internal Medicine
PROC: 0D20XUZ Change Feeding Device in Upper Intestinal Tract, External Approach (ICD-10-PCS; principal; 2017-07-08)
PROC: 0DB68ZX Excision of Stomach, Via Natural or Artificial Opening Endoscopic, Diagnostic (ICD-10-PCS; 2017-07-11)
DX: K94.23 Gastrostomy malfunction (principal); J18.9 Pneumonia, unspecified organism; A41.9 Sepsis, unspecified organism; R13.10 Dysphagia, unspecified; E87.1 Hypo-osmolality and hyponatremia; F72 Severe intellectual disabilities; F03.90 Unspecified dementia, unspecified severity, without behavioral disturbance, psychotic disturbance, mood disturbance, and anxiety; I10 Essential (primary) hypertension; K29.70 Gastritis, unspecified, without bleeding; G47.00 Insomnia, unspecified; K21.9 Gastro-esophageal reflux disease without esophagitis; F31.9 Bipolar disorder, unspecified; Y83.8 Other surgical procedures as the cause of abnormal reaction of the patient, or of later complication, without mention of misadventure at the time of the procedure; Y92.89 Other specified places as the place of occurrence of the external cause; Z83.3 Family history of diabetes mellitus; Z82.49 Family history of ischemic heart disease and other diseases of the circulatory system
CPT/HCPCS: 36415-UA; 71010-TC; 80048-TC; 80053-TC; 80061-TC; 82550-TC; 83605; 83880-TC; 84484-TC; 85007-TC; 85027-TC; 85610-TC; 88305-90; 88312-90; 90779; 93005; 94760; J0456; J0696; J2405; J2704; J7030; J7613; Z7512; Z7610

== ENCOUNTER 2017-11-03 09:32 | Inpatient (IN) | payer MEDICARE, MEDICAID ==
--- NOTE | 2017-11-03 09:58 | ED Physician Chart ---
ED Chief Complaint/HPI - Patient Information Date Seen:: 11/03/17 Time Seen:: 09:40 Chief Complaint:: shortness of breath History of Present Illness:: Patient reportedly developed shortness of breath this morning. No further history is available because patient has mental retardation and is currently in moderate respiratory distress and unable to provide a history. Allergies:: Allergies Allergy/AdvReac Type Severity Reaction Status Date / Time No Known Allergies Allergy Verified 09/11/17 21:34 Historian:: Patient Review:: Transfer documents Reviewed ED Review of Systems - Review of Systems Skin: No skin lesions Head: No headache Eyes: No loss of vision ENT: No earache Neck: No neck pain, No swelling Cardio Vascular: No chest pain Pulmonary: SOB GI: No nausea, No vomiting, No diarrhea Musculoskeletal: No bone or joint pain, No back pain, No muscle pain Psychiatric: Prior psych history Hematopoietic: No bruising Allergic/Immuno: No urticaria Neurological: No syncope, No focal symptoms ED Past Medical History - Past Medical History Past Medical History: HTN, Other (moderate intellectual disability; psychosis; anoxic encephalopathy; status post aspiration pneumonia; gastrostomy; impulse control disorder; insomnia; gastritis; bipolar disorder; pseudobulbar affect; cholelithiasis; cell carcinoma) Family History: Other (not available) Social History: Care Facility Surgical History: PEG/GTube Psychiatricy History: Bipolar, Other (psychosis; impulse control disorder) Medication: Reviewed Family Medical History - Family Member Mother History Unknown: Yes Ethnicity: Unknown Living Status: Unknown Hx Family Cancer: No Hx Family Coronary Artery Disease: No Hx Family Congestive Heart Failure: No Hx Family Hypertension: No Hx Family Stroke: No Hx Family Diabetes: No Hx Family Seizures: No Hx Family Dementia: No Hx Family AIDS: No Hx Family HIV: Yes Hx Family COPD: No Hx Family Hepatitis: No Hx Family Psychiatric Problems: No Hx Family Tuberculosis: No ED Physical Exam - Physical Examination Other Gen/Cons comments:: Mildly chronically ill-appearing; moderately restaurant just Head: Atraumatic Eyes: Lids, conjuctiva normal, PERRL Skin: Nl inspection, No rash ENMT: External ears, nose nl Neck: No nuchal rigidity Other Respiratory comments:: Diffusely 4 rhonchi Other Cardio Vascular comments:: Heart sounds are normal GI: No organomegaly Other Extremities comments:: 1.5 out of 4 pretibial pitting edema Neuro/Psych: No focal deficits ED Labs/Radiology/EKG Results - Lab Results Results: Laboratory Results - last 24 hr 11/03/17 11/03/17 11/03/17 09:40 09:52 10:00 WBC 8.9 RBC 4.89 Hgb 15.2 Hct 44.8 D MCV 91.8 MCH 31.1 H MCHC Differential 33.9 RDW 12.9 Plt Count 174 MPV 10.3 Neutrophils % PACKAGE [employer]ER Band Neutrophils % 18 H Lymphocytes % PACKAGE WORKER Monocytes % PACKAGE WORKER Eosinophils % PACKAGE WORKER Basophils % PACKAGE WORKER Neutrophils (Manual) 63 Lymphocytes 11 L Monocytes 8 Platelet Estimate ADEQUATE PT INR PTT (Actin FS) D-Dimer Specimen Source Arterial Sample Site Right Radial pH 7.48 H pCO2 36.0 pO2 46.0 L* HCO3 27.2 H Base Excess 3.3 H O2 Saturation 85.0 L Alex Test Positive Vent Rate NA Inspired O2 40 Tidal Volume NA PEEP NA Pressure (ins/psv/peep) NA Critical Value LZHANG Sodium Potassium Chloride Carbon Dioxide Anion Gap BUN Creatinine Est GFR ( Amer) Est GFR (Non-Af Amer) BUN/Creatinine Ratio Glucose POC Glucose 130 H Calcium Total Bilirubin AST ALT Alkaline Phosphatase B-Natriuretic Peptide Total Protein Albumin Globulin Albumin/Globulin Ratio Lipase 11/03/17 11/03/17 11/03/17 10:00 10:00 10:00 WBC RBC Hgb Hct MCV MCH MCHC Differential RDW Plt Count MPV Neutrophils % Band Neutrophils % Lymphocytes % Monocytes % Eosinophils % Basophils % Neutrophils (Manual) Lymphocytes Monocytes Platelet Estimate PT INR PTT (Actin FS) D-Dimer 1570 H Specimen Source Sample Site pH pCO2 pO2 HCO3 Base Excess O2 Saturation Alex Test Vent Rate Inspired O2 Tidal Volume PEEP Pressure (ins/psv/peep) Critical Value Sodium 133 L Potassium 3.7 Chloride 98 Carbon Dioxide 26.5 Anion Gap 12.2 BUN 33 H Creatinine 0.7 Est GFR ( Amer) > 60.0 Est GFR (Non-Af Amer) > 60.0 BUN/Creatinine Ratio 47.1 Glucose 143 H POC Glucose Calcium 9.3 Total Bilirubin 0.7 AST 18 ALT 12 Alkaline Phosphatase 80 B-Natriuretic Peptide 28.6 Total Protein 7.1 Albumin 3.8 L Globulin 3.3 Albumin/Globulin Ratio 1.2 Lipase 7 L 11/03/17 11/03/17 10:00 10:00 WBC RBC Hgb Hct MCV MCH MCHC Differential RDW Plt Count MPV Neutrophils % Band Neutrophils % Lymphocytes % Monocytes % Eosinophils % Basophils % Neutrophils (Manual) Lymphocytes Monocytes Platelet Estimate PT 11.2 INR 1.08 PTT (Actin FS) 25.4 L D-Dimer Specimen Source Sample Site pH pCO2 pO2 HCO3 Base Excess O2 Saturation Alex Test Vent Rate Inspired O2 Tidal Volume PEEP Pressure (ins/psv/peep) Critical Value Sodium Potassium Chloride Carbon Dioxide Anion Gap BUN Creatinine Est GFR ( Amer) Est GFR (Non-Af Amer) BUN/Creatinine Ratio Glucose POC Glucose Calcium Total Bilirubin AST ALT Alkaline Phosphatase B-Natriuretic Peptide Total Protein Albumin Globulin Albumin/Globulin Ratio Lipase - Radiology Results Results: Chest x-ray showed no cardiomegaly and no pulmonary congestion; no definite infiltrate seen - EKG Interpretations Rate & Rhythm: sinus tachycardia with a rate of 125 Mary Esther: normal axis Comments:: ST depression in the anterior leads ED Assessment - Assessment General Assessment: On 40% oxygen patient's oxygen was 46% on the blood gas; patient's oxygen was increased to 100% and% the pulse ox went up to 97%. Since the chest x-ray did not show dominant infiltrate a CT angiogram of the chest was done to rule out pulmonary embolus. Results have not yet been read by the radiologist. ED Septic Shock - . Is Septic Shock (SBP<90, OR Lactate>4 mmol\L) present?: No ED Reassessment (Disposition) - Reassessment Reassessment Condition:: Improved - Diagnosis Diagnosis:: Probable aspiration pneumonia; consider pulmonary embolus; hypoxia; mental retardation - Patient Disposition Admitted to:: ICU Spoke to:: Federico Thomas Admitting Medical Physician:: Federico Thomas Condition at Disposition:: Stable, Improved
[2017-11-03] MEDS ORDERED: Sodium Chloride 0.9% 500 ML IV ONE (10:02)
[2017-11-03 10:14] LABS: HEMOGLOBIN 15.2 gm/dL (12-16); MEAN CELL VOLUME 91.8 fl (80-99); MEAN CORPUSCULAR HEMOGLOBIN 31.1 pg (26.0-30.0); MEAN CORPUSCULAR HGB CONC 33.9 pg (28.0-36.0); MEAN PLATELET VOLUME 10.3 fl; PLATELET COUNT 174 Th/cmm (150-400); RED BLOOD COUNT 4.89 Mil/cmm (4.30-5.70); RED CELL DISTRIBUTION WIDTH 12.9 % (11.5-20.0); WHITE BLOOD COUNT 8.9 Th/cmm (4.8-10.8)
[2017-11-03 10:15] LABS: HEMATOCRIT 44.8 % (41.0-60)
[2017-11-03 10:23] LABS: ALB/GLOB RATIO 1.2 (1.0-1.8); ALBUMIN 3.8 gm/dL (4.2-5.5); ALKALINE PHOSPHATASE 80 U/L (34-104); ANION GAP 12.2 (7.0-16.0); BILIRUBIN,TOTAL 0.7 mg/dL (0.3-1.0); BUN - UREA NITROGEN 33 mg/dL (7-25); CALCIUM SERUM 9.3 mg/dL (8.6-10.3); CARBON DIOXIDE 26.5 mEq/L (21.0-31.0); CHLORIDE 98 mEq/L (98-107); CREATININE - SERUM 0.7 mg/dL (0.7-1.3); GFR AFRICAN-AMERICAN > 60.0 ml/min (>90); GFR NON AFRICAN-AMERICAN > 60.0 ml/min; GLUCOSE 143 mg/dL (70-105); LIPASE 7 U/L (11-82); POTASSIUM SERUM 3.7 mEq/L (3.5-5.1); SGOT 18 U/L (13-39); SGPT/ALT 12 U/L (7-52); SODIUM SERUM 133 mEq/L (136-145); TOTAL PROTEIN,SERUM 7.1 gm/dL (6.0-8.3)
[2017-11-03] MEDS ORDERED: Piperacillin Sodium/Tazobact 3.375 gm Vial IV ONE (10:33)
--- NOTE | 2017-11-03 10:39 | Diagnostic Imaging Report ---
Portable chest x-ray HISTORY: Shortness of breath There is a poor inspiration. The overall heart size is difficult to assess. The apical regions of the chest are scattered by the patient's overlying head. No definite acute focal pulmonary parenchymal processes are seen. Pleural reaction consisted thickening noted along the right lower hemithorax unchanged from an exam of September 15, 2017. IMPRESSION: 1. No definite acute abnormalities
[2017-11-03 10:46] LABS: pH 7.48 (7.35-7.45)
[2017-11-03 10:46] LABS: TOTAL CELLS COUNTED 100
[2017-11-03 10:47] LABS: BAND NEUTROPHILE 18 % (0-10); LYMPHOCYTE 11 % (20-50); MONOCYTE 8 % (2-10); NEUTROPHILS 63 % (40-80); PLATELET ESTIMATE ADEQUATE (NORMAL)
[2017-11-03 10:48] LABS: ALLEN TEST Positive
[2017-11-03 11:27] LABS: INR 1.08 (0.5-1.4); PROTHROMBIN TIME (TEST) 11.2 SECONDS (9.5-11.5)
--- NOTE | 2017-11-03 12:32 | Diagnostic Imaging Report ---
Exam: CT chest HISTORY: Pulmonary embolus Total DLP equals to 70 CTDI 6.8. Findings: Multiple contiguous thin section of the chest were obtained from thoracic outlet to the upper abdomen with administration of intravenous contrast material per pulmonary artery embolus protocol. The study correlated with the previous report of 05/29/2017. The study demonstrates normal enhancement of great vessels of the neck. No abnormal adenopathy is noted. There is evidence of extensive right-sided consolidation pneumonia infiltrate with superimposed right pleural effusion. Left pleural thickening and left basilar infiltrates appreciated. Mediastinal structures midline the heart is not enlarged. No abnormal adenopathy is noted. There is normal enhancement of the pulmonary arteries bilaterally without filling defects. Bony thorax is intact. There is no evidence for lytic or blastic lesions. Examination of the upper abdomen demonstrates gastrostomy tube in the stomach. There is evidence for cholelithiasis. IMPRESSION: 1. No evidence of pulmonary emboli bilaterally. 2. Bilateral interstitial infiltrates predominantly right basal superimposed right lower lobe consolidation pneumonia and effusion.
[2017-11-03] MEDS ORDERED: Fleet Enema 135 mL RC PRN (13:12)
[2017-11-03] MEDS ORDERED: Ipratropium Neb 0.5 mg/2.5 mL UD HHN PRN (13:12)
[2017-11-03] MEDS ORDERED: Magnesium Hydroxide (MOM) 30 mL UDC GT PRN (13:12)
[2017-11-03] MEDS ORDERED: Albuterol Nebulizer 2.5mg/3mL HHN PRN (13:12)
--- NOTE | 2017-11-03 13:12 | Internal Medicine Prog Note ---
Internal Medicine Subjective - Subjective Service Date: 11/03/17 ([facility] dictaetd [id number]) Internal Medicine Objective - Results Result Diagrams: 11/03/17 10:00 11/03/17 10:00 Recent Labs: Laboratory Last Values WBC 8.9 Th/cmm (4.8-10.8) 11/03/17 10:00 RBC 4.89 Mil/cmm (4.30-5.70) 11/03/17 10:00 Hgb 15.2 gm/dL (12-16) 11/03/17 10:00 Hct 44.8 % (41.0-60) D 11/03/17 10:00 MCV 91.8 fl (80-99) 11/03/17 10:00 MCH 31.1 pg (26.0-30.0) H 11/03/17 10:00 MCHC Differential 33.9 pg (28.0-36.0) 11/03/17 10:00 RDW 12.9 % (11.5-20.0) 11/03/17 10:00 Plt Count 174 Th/cmm (150-400) 11/03/17 10:00 MPV 10.3 fl 11/03/17 10:00 Neutrophils % [employer] 11/03/17 10:00 Band Neutrophils % 18 % (0-10) H 11/03/17 10:00 Lymphocytes % [employer] 11/03/17 10:00 Monocytes % [employer] 11/03/17 10:00 Eosinophils % [employer] 11/03/17 10:00 Basophils % [employer] 11/03/17 10:00 Neutrophils (Manual) 63 % (40-80) 11/03/17 10:00 Lymphocytes 11 % (20-50) L 11/03/17 10:00 Monocytes 8 % (2-10) 11/03/17 10:00 Platelet Estimate ADEQUATE (NORMAL) 11/03/17 10:00 PT 11.2 SECONDS (9.5-11.5) 11/03/17 10:00 INR 1.08 (0.5-1.4) 11/03/17 10:00 PTT (Actin FS) 25.4 SECONDS (26.0-38.0) L 11/03/17 10:00 D-Dimer 1570 ng/mL (100-400) H 11/03/17 10:00 Specimen Source Arterial 11/03/17 09:40 Sample Site Right Radial 11/03/17 09:40 pH 7.48 (7.35-7.45) H 11/03/17 09:40 pCO2 36.0 mmHg (35.0-45.0) 11/03/17 09:40 pO2 46.0 mmHg (80.0-100.0) L* 11/03/17 09:40 HCO3 27.2 mEq/L (20.0-26.0) H 11/03/17 09:40 Base Excess 3.3 mEq/L (-3.0-3.0) H 11/03/17 09:40 O2 Saturation 85.0 % (92.0-100.0) L 11/03/17 09:40 Alex Test Positive 11/03/17 09:40 Vent Rate NA 11/03/17 09:40 Inspired O2 40 11/03/17 09:40 Tidal Volume NA 11/03/17 09:40 PEEP NA 11/03/17 09:40 Pressure (ins/psv/peep) NA 11/03/17 09:40 Critical Value LZHANG 11/03/17 09:40 Sodium 133 mEq/L (136-145) L 11/03/17 10:00 Potassium 3.7 mEq/L (3.5-5.1) 11/03/17 10:00 Chloride 98 mEq/L (98-107) 11/03/17 10:00 Carbon Dioxide 26.5 mEq/L (21.0-31.0) 11/03/17 10:00 Anion Gap 12.2 (7.0-16.0) 11/03/17 10:00 BUN 33 mg/dL (7-25) H 11/03/17 10:00 Creatinine 0.7 mg/dL (0.7-1.3) 11/03/17 10:00 Est GFR ( Amer) > 60.0 ml/min (>90) 11/03/17 10:00 Est GFR (Non-Af Amer) > 60.0 ml/min 11/03/17 10:00 BUN/Creatinine Ratio 47.1 11/03/17 10:00 Glucose 143 mg/dL (70-105) H 11/03/17 10:00 POC Glucose 130 MG/DL (70 - 105) H 11/03/17 09:52 Calcium 9.3 mg/dL (8.6-10.3) 11/03/17 10:00 Total Bilirubin 0.7 mg/dL (0.3-1.0) 11/03/17 10:00 AST 18 U/L (13-39) 11/03/17 10:00 ALT 12 U/L (7-52) 11/03/17 10:00 Alkaline Phosphatase 80 U/L (34-104) 11/03/17 10:00 B-Natriuretic Peptide 28.6 pg/mL (5.0-100.0) 11/03/17 10:00 Total Protein 7.1 gm/dL (6.0-8.3) 11/03/17 10:00 Albumin 3.8 gm/dL (4.2-5.5) L 11/03/17 10:00 Globulin 3.3 gm/dL 11/03/17 10:00 Albumin/Globulin Ratio 1.2 (1.0-1.8) 11/03/17 10:00 Lipase 7 U/L (11-82) L 11/03/17 10:00 - Physical Exam Vitals and I&O: Vital Signs Temp 98.3 F 11/03/17 12:53 Pulse 104 11/03/17 12:53 Resp 19 11/03/17 12:53 BP 118/87 11/03/17 12:53 Pulse Ox 100 11/03/17 12:53 - Procedures Procedures: Procedures Procedure Code Date CHANGE FEEDING DEVICE IN UP INTEST TRACT, COLLAR SHAPER OPERATOR APPROACH [id number] 09/11/17 CHANGE GASTROSTOMY TUBE 34174 07/06/17 EGD BIOPSY SINGLE/MULTIPLE 84261 09/11/[address] GASTROSTOMY TUBE 10171 02/16/09 EXCISION OF STOMACH, ENDO, DIAGN [id number] 09/11/17 INSERT EMERGENCY AIRWAY 15343 12/21/16 INSERTION OF ENDOTRACHEAL AIRWAY INTO TRACHEA, VIA OPENING [id number] 12/21/16 INSERTION OF INFUSION DEVICE INTO R ATRIUM, PERC APPROACH [id number] 12/21/16 OTHER ENDOSCOPY OF SM INTEST 45.13 02/16/09 REPLACE GASTROSTOMY TUBE 97.02 02/16/09 RESPIRATORY VENTILATION, GREATER THAN 96 CONSECUTIVE HOURS [id number] 12/21/16 VENT MGMT INPAT INIT DAY 96002 12/21/16 VENT MGMT INPAT SUBQ DAY 53976 12/21/16
[2017-11-03] MEDS ORDERED: Azithromycin 500 MG in Sodium Chloride 0.9% 250 ML IV SCH (13:15)
[2017-11-03] MEDS ORDERED: Maalox 30 mL Cup PO PRN (13:21)
[2017-11-03] MEDS ORDERED: guaiFENesin 200 MG/10 ML UDC PO PRN (13:21)
[2017-11-03] MEDS ORDERED: D5-0.45NS 1,000 ML IV ONE (13:39)
--- NOTE | 2017-11-03 14:02 | History & Physical ---
ADMIT DATE: 11/03/2017 This is a History and Physical for Dr. Federico Thomas. CHIEF COMPLAINT: Shortness of breath. HISTORY OF PRESENT ILLNESS: This is a 62-year-old male who is a resident of [facility], who is brought here to [facility] due to shortness of breath. The patient did not have any fevers at the longterm for further management. The patient is now admitted. PAST MEDICAL HISTORY: Severe intellectual disability, hypertension, dysphagia, anoxic encephalopathy, aspiration pneumonia, impulse control disorder, insomnia, gastritis, bipolar disorder, and pseudobulbar affect. FAMILY HISTORY: Noncontributory. SOCIAL HISTORY: The patient resides in a longterm, requiring 24-hour nursing care. PAST SURGICAL HISTORY: PEG. MEDICATIONS: Please see medication reconciliation. PHYSICAL EXAMINATION: GENERAL: This is an elderly male, awake, alert with some confusion. No apparent distress. VITAL SIGNS: Temperature 98.3, heart rate 104, blood pressure 118/87, respirations 19, O2 100%. HEENT: Head: Normocephalic, atraumatic. NECK: Supple. No mass. LUNGS: Rhonchi bilaterally. HEART: Regular rate and rhythm. ABDOMEN: Soft, nontender. LABORATORY RESULTS: WBC 8.9, H and H 15.2 and 44.8, platelets 174. PT 11.2, INR 1.08, PTT 25.4. D-dimer of 1570. Blood gas, pH 7.48, CO2 26.0, pO2 46.0, HCO3 27.2, O2 sat of 85%. Sodium 133, potassium 3.7, chloride 98, BUN 32, creatinine 0.7. Albumin 3.8. Lipase of 7. DIAGNOSTICS: The patient had a chest x-ray done and the impression is no definite acute abnormalities. The patient also had a CTA done and the impression is no evidence of PE bilateral, bilateral interstitial infiltrates, predominantly ___ right lower lobe consolidation pneumonia and effusion. ASSESSMENT: Hypoxic acute respiratory distress, pneumonia, elevated D-dimer, acute renal insufficiency, mild protein-calorie malnutrition, severe intellectual disability, hypertension, dysphagia, impulse control disorder, insomnia, gastritis, bipolar disorder, pseudobulbar affect. PLAN: The patient to be admitted to the ICU unit. We will get a sputum culture. Keep the patient on empiric IV antibiotics. We will get the patient's follow up labs, CBC, BMP. Keep the patient on supplemental oxygen. We will monitor patient's oxygen level via ABG. We will get some inhalation treatments. We will continue to follow this patient. JOB# [id number]
[2017-11-03] MEDS: Albuterol Nebulizer 2.5mg/3mL IH SCH ×3 (14:19→21:04)
[2017-11-03] MEDS: Ipratropium Neb 0.5 mg/2.5 mL UD IH SCH ×3 (14:19→21:04)
[2017-11-03 14:37] LABS: URINE MICROSCOPIC INDICATED? YES; URINE SOURCE CATH
[2017-11-03 14:41] LABS: URINE BILIRUBIN NEGATIVE (NEGATIVE); URINE BLOOD NEGATIVE (NEGATIVE); URINE GLUCOSE (UA) NEGATIVE (NEGATIVE); URINE KETONE NEGATIVE (NEGATIVE); URINE LEUKOCYTE ESTERASE NEGATIVE (NEGATIVE); URINE NITRATE NEGATIVE (NEGATIVE); URINE PROTEIN NEGATIVE (NEGATIVE)
[2017-11-03 14:46] LABS: URINE CLARITY CLEAR (CLEAR); URINE COLOR YELLOW
[2017-11-03 14:48] LABS: URINE BACTERIA NONE SEEN /hpf (NONE SEEN); URINE EPITHELIAL CELLS NONE SEEN /lpf (FEW); URINE RBC NONE SEEN /hpf (0-5); URINE WBC NONE SEEN /hpf (0-5)
[2017-11-03 15:08] VITALS: BP 117/87
[2017-11-03 16:02] LABS: INF A SCREEN NEG FOR INF A; INF B SCREEN NEG FOR INF B
[2017-11-03] MEDS ORDERED: VTE Chemical Prophylaxis Screen/Admission MC PRN (16:15)
[2017-11-03] MEDS ORDERED: MAGNESIUM HYDROX GT SCH (17:00)
[2017-11-03] MEDS ORDERED: CALCIUM CARB GT SCH (17:00)
[2017-11-03] MEDS ORDERED: Pantoprazole 40 mg EC Tab PO SCH (17:00)
[2017-11-03] MEDS ORDERED: CHOLECALCIFEROL 400 UNIT GT SCH (17:00)
[2017-11-03] MEDS ORDERED: Non-Formulary Item 1 EA (Omeprazole [Omeprazole] 20 MG) GT SCH (17:00)
[2017-11-03] MEDS: Dextromethorphan/Quinidine 20mg/10mg Cap GT SCH (17:29)
[2017-11-03 17:43] LABS: pH 7.48 (7.35-7.45)
[2017-11-03] MEDS: methylPREDNISolone SS 40 mg Vial IVP SCH (21:04)
[2017-11-04] MEDS: methylPREDNISolone SS 40 mg Vial IVP SCH ×3 (05:13→21:50)
[2017-11-04 06:20] LABS: % BASOPHILS 1.1 % (0.0-2.0); % EOSINOPHILS 0.1 % (0.0-5.0); % LYMPHOCYTES 7.1 % (20.0-50.0); % NEUTROPHILS 85.7 % (40.0-80.0); BASOPHILE ABSOLUTE 0.1 Th/cumm (0-0.2); HEMATOCRIT 41.8 % (41.0-60); HEMOGLOBIN 14.3 gm/dL (12-16); LYMPHOCYTE ABSOLUTE 0.9 Th/cmm (1.5-3.0); MEAN CELL VOLUME 91.2 fl (80-99); MEAN CORPUSCULAR HEMOGLOBIN 31.1 pg (26.0-30.0); MEAN CORPUSCULAR HGB CONC 34.1 pg (28.0-36.0); MEAN PLATELET VOLUME 10.9 fl; MONOCYTE ABSOLUTE 0.8 Th/cmm (0.3-1.0); NEUTROPHILE ABSOLUTE 11.2 Th/cmm (1.8-8.0); PLATELET COUNT 184 Th/cmm (150-400); RED BLOOD COUNT 4.58 Mil/cmm (4.30-5.70)
[2017-11-04 06:40] LABS: ANION GAP 14.3 (7.0-16.0); BUN - UREA NITROGEN 34 mg/dL (7-25); CALCIUM SERUM 9.4 mg/dL (8.6-10.3); CARBON DIOXIDE 25.9 mEq/L (21.0-31.0); CHLORIDE 97 mEq/L (98-107); CREATININE - SERUM 0.7 mg/dL (0.7-1.3); GFR AFRICAN-AMERICAN > 60.0 ml/min (>90); GFR NON AFRICAN-AMERICAN > 60.0 ml/min; GLUCOSE 202 mg/dL (70-105); POTASSIUM SERUM 3.2 mEq/L (3.5-5.1); SODIUM SERUM 134 mEq/L (136-145)
[2017-11-04] MEDS: Ipratropium Neb 0.5 mg/2.5 mL UD IH SCH ×6 (07:12→19:02)
[2017-11-04] MEDS: Albuterol Nebulizer 2.5mg/3mL IH SCH ×6 (07:12→19:01)
--- NOTE | 2017-11-04 08:29 | Diagnostic Imaging Report ---
Exam: Portable examination of the chest. HISTORY: NG tube placement. Findings: Portable examination of the chest at 0816 hours demonstrates NG tube in the stomach.
[2017-11-04] MEDS ORDERED: Non-Formulary Item 1 EA (Lactobacillus Acidophilus [Acidophilus] 1 EACH) GT SCH (09:00)
[2017-11-04] MEDS ORDERED: Lactobacillus Rhamnosus GG 15 Billion CFU CAP.SPRINK PO SCH (09:00)
[2017-11-04] MEDS: Lactobacillus Rhamnosus GG 15 Billion CFU CAP.SPRINK PO SCH (10:08)
[2017-11-04] MEDS: Dextromethorphan/Quinidine 20mg/10mg Cap GT SCH ×2 (10:08→17:59)
[2017-11-04] MEDS: Multivitamin w/ Minerals Tab GT SCH (10:08)
[2017-11-04] MEDS: Fish Oil 1,000 MG SGL PO SCH (10:08)
[2017-11-04] MEDS: POLYETHYLENE GLYCOL 3350 17 GM PACK GT SCH (10:09)
[2017-11-04] MEDS: Pantoprazole 80 MG in Sodium Chloride 0.9% 100 ML IV SCH ×2 (10:30→20:30)
[2017-11-04] MEDS ORDERED: Probiotic Screen MC PRN (10:45)
[2017-11-04 13:23] LABS: A1C % 6.3 % (4.0-6.0)
--- NOTE | 2017-11-04 13:56 | Internal Medicine Prog Note ---
Internal Medicine Subjective - Subjective Service Date: 11/04/17 (patient had episode of x5 coffee ground emesis, on intermittent suction via ngt, on bipap ) Patient seen and examined:: with staff Patient is:: awake, confused Patient Complaints of:: vomitting Per staff patient has:: tolerating meds Internal Medicine Objective - Results Result Diagrams: 11/04/17 06:10 11/04/17 06:10 Recent Labs: Laboratory Last Values WBC 13.0 Th/cmm (4.8-10.8) H D 11/04/17 06:10 RBC 4.58 Mil/cmm (4.30-5.70) 11/04/17 06:10 Hgb 14.3 gm/dL (12-16) 11/04/17 06:10 Hct 41.8 % (41.0-60) 11/04/17 06:10 MCV 91.2 fl (80-99) 11/04/17 06:10 MCH 31.1 pg (26.0-30.0) H 11/04/17 06:10 MCHC Differential 34.1 pg (28.0-36.0) 11/04/17 06:10 RDW 13.0 % (11.5-20.0) 11/04/17 06:10 Plt Count 184 Th/cmm (150-400) 11/04/17 06:10 MPV 10.9 fl 11/04/17 06:10 Neutrophils % 85.7 % (40.0-80.0) H 11/04/17 06:10 Band Neutrophils % 18 % (0-10) H 11/03/17 10:00 Lymphocytes % 7.1 % (20.0-50.0) L 11/04/17 06:10 Monocytes % 6.0 % (2.0-10.0) 11/04/17 06:10 Eosinophils % 0.1 % (0.0-5.0) 11/04/17 06:10 Basophils % 1.1 % (0.0-2.0) 11/04/17 06:10 Neutrophils (Manual) 63 % (40-80) 11/03/17 10:00 Lymphocytes 11 % (20-50) L 11/03/17 10:00 Monocytes 8 % (2-10) 11/03/17 10:00 Platelet Estimate ADEQUATE (NORMAL) 11/03/17 10:00 PT 11.2 SECONDS (9.5-11.5) 11/03/17 10:00 INR 1.08 (0.5-1.4) 11/03/17 10:00 PTT (Actin FS) 25.4 SECONDS (26.0-38.0) L 11/03/17 10:00 D-Dimer 1570 ng/mL (100-400) H 11/03/17 10:00 Specimen Source Arterial 11/03/17 17:36 Sample Site RB 11/03/17 17:36 pH 7.48 (7.35-7.45) H 11/03/17 17:36 pCO2 36.0 mmHg (35.0-45.0) 11/03/17 17:36 pO2 50.0 mmHg (80.0-100.0) L 11/03/17 17:36 HCO3 27.3 mEq/L (20.0-26.0) H 11/03/17 17:36 Base Excess 3.3 mEq/L (-3.0-3.0) H 11/03/17 17:36 O2 Saturation 88.0 % (92.0-100.0) L 11/03/17 17:36 Alex Test NA 11/03/17 17:36 Vent Rate NA 11/03/17 17:36 Inspired O2 32 11/03/17 17:36 Tidal Volume NA 11/03/17 17:36 PEEP NA 11/03/17 17:36 Pressure (ins/psv/peep) NA 11/03/17 17:36 Critical Value E.CASAS 11/03/17 17:36 Sodium 134 mEq/L (136-145) L 11/04/17 06:10 Potassium 3.2 mEq/L (3.5-5.1) L 11/04/17 06:10 Chloride 97 mEq/L (98-107) L 11/04/17 06:10 Carbon Dioxide 25.9 mEq/L (21.0-31.0) 11/04/17 06:10 Anion Gap 14.3 (7.0-16.0) 11/04/17 06:10 BUN 34 mg/dL (7-25) H 11/04/17 06:10 Creatinine 0.7 mg/dL (0.7-1.3) 11/04/17 06:10 Est GFR ( Amer) > 60.0 ml/min (>90) 11/04/17 06:10 Est GFR (Non-Af Amer) > 60.0 ml/min 11/04/17 06:10 BUN/Creatinine Ratio 48.6 11/04/17 06:10 Glucose 202 mg/dL (70-105) H 11/04/17 06:10 POC Glucose 130 MG/DL (70 - 105) H 11/03/17 09:52 Hemoglobin A1c % 6.3 % (4.0-6.0) H 11/04/17 06:10 Calcium 9.4 mg/dL (8.6-10.3) 11/04/17 06:10 Total Bilirubin 0.7 mg/dL (0.3-1.0) 11/03/17 10:00 AST 18 U/L (13-39) 11/03/17 10:00 ALT 12 U/L (7-52) 11/03/17 10:00 Alkaline Phosphatase 80 U/L (34-104) 11/03/17 10:00 B-Natriuretic Peptide 28.6 pg/mL (5.0-100.0) 11/03/17 10:00 Total Protein 7.1 gm/dL (6.0-8.3) 11/03/17 10:00 Albumin 3.8 gm/dL (4.2-5.5) L 11/03/17 10:00 Globulin 3.3 gm/dL 11/03/17 10:00 Albumin/Globulin Ratio 1.2 (1.0-1.8) 11/03/17 10:00 Lipase 7 U/L (11-82) L 11/03/17 10:00 Urine Source CATH 11/03/17 14:10 Urine Color YELLOW 11/03/17 14:10 Urine Clarity CLEAR (CLEAR) 11/03/17 14:10 Urine pH 8.0 (4.6 - 8.0) 11/03/17 14:10 Ur Specific [place] 1.010 (1.005-1.030) 11/03/17 14:10 Urine Protein NEGATIVE mg/dL (NEGATIVE) 11/03/17 14:10 Urine Glucose (UA) NEGATIVE mg/dL (NEGATIVE) 11/03/17 14:10 Urine Ketones NEGATIVE mg/dL (NEGATIVE) 11/03/17 14:10 Urine Blood NEGATIVE (NEGATIVE) 11/03/17 14:10 Urine Nitrate NEGATIVE (NEGATIVE) 11/03/17 14:10 Urine Bilirubin NEGATIVE (NEGATIVE) 11/03/17 14:10 Urine Urobilinogen 1.0 E.U./dL (0.2 - 1.0) 11/03/17 14:10 Ur Leukocyte Esterase NEGATIVE (NEGATIVE) 11/03/17 14:10 Urine RBC NONE SEEN /hpf (0-5) 11/03/17 14:10 Urine WBC NONE SEEN /hpf (0-5) 11/03/17 14:10 Ur Epithelial Cells NONE SEEN /lpf (FEW) 11/03/17 14:10 Urine Bacteria NONE SEEN /hpf (NONE SEEN) 11/03/17 14:10 Influenza A (Rapid) NEG FOR INF A 11/03/17 15:00 Influenza B (Rapid) NEG FOR INF B 11/03/17 15:00 - Physical Exam Vitals and I&O: Vital Signs Temp 96.5 F 11/04/17 12:00 Pulse 106 11/04/17 12:00 Resp 22 11/04/17 12:00 BP 98/74 11/04/17 12:00 Pulse Ox 97 11/04/17 12:00 Intake & Output 11/03/17 11/04/17 11/04/17 18:59 06:59 18:59 Intake Total 50 50 Output Total 251 700 Balance -201 -650 Weight (lbs) 168 lb 8 oz 168 lb Intake: Intake, IV Amount 50 Cefepime 1 gm In Dextrose 50 5% 50 ml @ 100 mls/hr IV Q12H [facility] Rx#:[id number] Tube Feeding 50 Output: Urine 250 700 Emesis 1 Other: # Bowel Movements 1 0 Stool Characteristics Soft Brown Active Medications: Current Medications Acetaminophen (Tylenol 650mg/20.3ml Suspension) 650 mg GT Q4H PRN PRN Reason: PAIN OR TEMP >100 Stop: 01/02/18 13:11 Last Admin: 11/03/17 23:40 Dose: 650 mg Acetaminophen (Tylenol) 650 mg PO Q4HR PRN PRN Reason: Pain Or Fever above 101 Stop: 01/02/18 13:20 Al Hydrox/Mg Hydrox/Simethicone (Maalox) 30 ml PO Q6HR PRN PRN Reason: Dyspepsia Stop: 01/02/18 13:20 Albuterol Sulfate (Albuterol 2.5mg/3ml Neb Ud) 2.5 mg HHN Q4HRT PRN PRN Reason: Congestion Stop: 01/02/18 13:11 Last Admin: 11/03/17 22:14 Dose: 2.5 mg Albuterol Sulfate (Albuterol 2.5mg/3ml Neb Ud) 2.5 mg IH QID JESUS MANUEL Stop: 01/02/18 16:59 Last Admin: 11/04/17 10:56 Dose: Not Given Ascorbic Acid (Vitamin C) 500 mg GT BID JESUS MANUEL Stop: 01/02/18 16:59 Last Admin: 11/04/17 10:07 Dose: Not Given Atenolol (Tenormin) 25 mg GT DAILY JESUS MANUEL Stop: 01/03/18 08:59 Last Admin: 11/04/17 10:07 Dose: Not Given Bisacodyl (Dulcolax 10 Mg Supp) 10 mg RC DAILY PRN PRN Reason: IF MOM INEFFECTIVE Stop: 01/02/18 13:11 Calcium Carbonate (Tums) 1,250 mg GT DAILY JESUS MANUEL Stop: 01/03/18 08:59 Last Admin: 11/04/17 10:08 Dose: Not Given Dextromethorphan/Quinidine (Nuedexta 20mg-10mg) 1 cap GT BID JESUS MANULE Stop: 01/02/18 16:59 Last Admin: 11/04/17 10:08 Dose: Not Given Fish Oil ([place] 3) 1,000 mg PO DAILY JESUS MANUEL Stop: 01/03/18 08:59 Last Admin: 11/04/17 10:08 Dose: Not Given Guaifenesin (Robitussin) 100 mg PO Q4H PRN PRN Reason: Cough or Congestion Stop: 01/02/18 13:20 Cefepime HCl 1 gm/ Dextrose 50 mls @ 100 mls/hr IV Q12H JESUS MANUEL Stop: 01/02/18 13:59 Last Admin: 11/04/17 02:11 Dose: 100 mls/hr Pantoprazole Sodium 80 mg/ (Sodium Chloride) 100 mls @ 10 mls/hr IV Q10H JESUS MANUEL Stop: 01/03/18 10:59 Last Admin: 11/04/17 10:30 Dose: 10 mls/hr Ipratropium [place] (Atrovent Neb 0.5mg/2.5ml) 0.5 mg HHN Q4HRT PRN PRN Reason: Congestion Stop: 01/02/18 13:11 Last Admin: 11/03/17 22:14 Dose: 0.5 mg Ipratropium [place] (Atrovent Neb 0.5mg/2.5ml) 0.5 mg IH QID JESUS MANUEL Stop: 01/02/18 16:59 Last Admin: 11/04/17 10:57 Dose: Not Given Lactobacillus Rhamnosus (Culturelle 15b) 1 each PO DAILY JESUS MANUEL Stop: 01/03/18 08:59 Last Admin: 11/04/17 10:08 Dose: Not Given Magnesium Hydroxide (Milk Of Magnesia) 30 ml GT Q72H PRN PRN Reason: NO BM (CONSTIPATION) Stop: 01/02/18 13:11 Methylprednisolone Sodium Succinate (Solu-Medrol) 80 mg IVP Q8HR JESUS MANUEL Stop: 01/02/18 20:59 Last Admin: 11/04/17 12:26 Dose: 80 mg Miscellaneous (Calcium Carb/Magnesium Hydrox [Mi-Acid Ds Tablet]) 1 each GT QID JESUS MANUEL Stop: 01/02/18 16:59 Miscellaneous (Vte Chemical Prophylaxis Screen/ Admission) 1 ea MC PRN PRN PRN Reason: PROTOCOL Stop: 01/02/18 16:14 Miscellaneous (Probiotic Screen) 1 ea MC PRN PRN PRN Reason: PROTOCOL Stop: 01/03/18 10:44 Ondansetron HCl (Zofran) 4 mg IV Q8H PRN PRN Reason: Nausea / Vomiting Stop: 01/02/18 13:20 Polyethylene Glycol (Miralax) 17 gm GT DAILY JESUS MANUEL Stop: 01/03/18 08:59 Last Admin: 11/04/17 10:09 Dose: Not Given Quetiapine Fumarate (Seroquel) 300 mg PO HS JESUS MANUEL PRN Reason: Protocol Stop: 01/02/18 20:59 Last Admin: 11/03/17 21:09 Dose: 300 mg Quetiapine Fumarate (Seroquel) 200 mg GT QAM JESUS MANUEL PRN Reason: Protocol Stop: 01/03/18 08:59 Last Admin: 11/04/17 10:09 Dose: Not Given Sodium Phosphate (Fleet Enema) 135 ml RC PRN PRN PRN Reason: IF DULCOLAX INEFFECTIVE Stop: 01/02/18 13:11 Trazodone HCl (Desyrel) 25 mg GT HS JESUS MANUEL PRN Reason: Protocol Stop: 01/02/18 20:59 Last Admin: 11/03/17 21:19 Dose: 25 mg Valproate Sodium (Depakene) 625 mg GT DAILY JESUS MANUEL PRN Reason: Protocol Stop: 01/03/18 08:59 Last Admin: 11/04/17 10:09 Dose: Not Given Valproate Sodium (Depakene) 750 mg GT HS JESUS MANUEL PRN Reason: Protocol Stop: 01/02/18 20:59 Last Admin: 11/03/17 21:08 Dose: 750 mg Vitamin D (Vitamin D) 400 iu PO QPM JESUS MANUEL Stop: 01/02/18 16:59 Last Admin: 11/03/17 17:29 Dose: Not Given General: weak, alert HEENT: NC/AT, PERRLA Lungs: CTAB Cardiovascular: Normal S1, Normal S2 Abdomen: distended Neurological: alert - Procedures Procedures: Procedures Procedure Code Date CHANGE FEEDING DEVICE IN UP INTEST TRACT, GASOLINE SERVICE ATTENDANT APPROACH [id number] 09/11/17 CHANGE GASTROSTOMY TUBE 67022 07/06/17 EGD BIOPSY SINGLE/MULTIPLE 53254 09/11/[address] GASTROSTOMY TUBE 42189 02/16/09 EXCISION OF STOMACH, ENDO, DIAGN [id number] 09/11/17 INSERT EMERGENCY AIRWAY 90169 12/21/16 INSERTION OF ENDOTRACHEAL AIRWAY INTO TRACHEA, VIA OPENING [id number] 12/21/16 INSERTION OF INFUSION DEVICE INTO R ATRIUM, PERC APPROACH [id number] 12/21/16 OTHER ENDOSCOPY OF SM INTEST 45.13 02/16/09 REPLACE GASTROSTOMY TUBE 97.02 02/16/09 RESPIRATORY VENTILATION, GREATER THAN 96 CONSECUTIVE HOURS [id number] 12/21/16 VENT MGMT INPAT INIT DAY 78323 12/21/16 VENT MGMT INPAT SUBQ DAY 62517 12/21/16 Internal Medicine Assmt/Plan - Assessment Assessment: HYPOXIC RESPIRATORY DISTRESS PNA ELEVATED DDIMER MRSA NARES GI BLEED ACUTE RENAL INSUFFICIENCY MILD PROTEIN CALORIE MALNUTRITION SEVERE INTELLECTUAL DISABILITY HTN DYSPHAGIA IMPLUSE CONTROL DISORDER INSOMNIA GASTRITIS BIPOLAR DISORDER PSEUDOBULAR AFFECT - Plan Plan: WILL ADD BACTROBAN KUB TODAY CONTINUE PROTONIX IP MONITOR H/H FOLLOW UP LABS IN AM CONTINUE WITH BIPAP CONTINUE CURRENT PLAN OF CARE
[2017-11-04] MEDS ORDERED: KCL 20mEq/100mL Premix 20 MEQ/100 ML PIGGYBACK IV ONE (14:26)
--- NOTE | 2017-11-04 14:41 | Diagnostic Imaging Report ---
KUB single view HISTORY: Distention COMPARISON: None FINDINGS: Generalized gas-filled loops of bowel are noted nonspecific. Distal fecal impaction is noted. Degenerative changes of the spine are noted. IMPRESSION: Distal fecal impaction. The remaining bowel gas pattern is nonspecific.
--- NOTE | 2017-11-04 15:52 | Consultation ---
DATE OF CONSULTATION: 11/03/2017 PATIENT OF: Dr. Thomas. Thank you very much Dr. Thomas for this consultation. HISTORY OF PRESENT ILLNESS: The patient is a 62-year-old male who has history of COPD, who presents with respiratory distress, shortness of breath and was found to be hypoxemic, placed on 100% nonrebreather, and admitted for treatment and management. The patient appears to be doing better. His oxygenation is improved, is breathing better, is less congested. No other history the patient can provide. He has got some other intellectual disability and psychosis, and basal cell carcinoma of the nose. PASE MEDICAL HISTORY AND SOCIAL HISTORY: Not available. REVIEW OF SYSTEMS: Unable to obtain because of the patient's condition. PHYSICAL EXAMINATION: GENERAL: The patient is awake, alert, not in acute distress. VITAL SIGNS: Temperature 99.1, pulse 104, respiration is 19, blood pressure 120/65, saturation 100%. CHEST: Good breath sounds, rhonchi bilaterally. HEART: Regular. ABDOMEN: Soft. EXTREMITIES: No edema. LABORATORY AND DIAGNOSTIC DATA: WBC is 8.9, hemoglobin 15.2, platelets is 147. ABGs: pH 7.48, pCO2 36, pO2 46, bicarbonate is 85. Sodium 133, potassium is 3.7, BUN is 33, creatinine 0.7. Chest x-ray: No acute infiltrate. IMPRESSION: 1. This is a 62-year-old male with acute respiratory failure. 2. Bronchitis. 3. Underlying chronic obstructive pulmonary disease. PLAN: 1. IV antibiotics. 2. Nebulizer treatment. 3. Titrate FiO2 as tolerated. 4. Low-dose steroids. 5. Check influenza screen. Thank you very much for this consultation. I will follow the patient with you. JOB# [id number] MTDVern
[2017-11-04 16:19] LABS: BASOPHILE ABSOLUTE 0.3 Th/cumm (0-0.2); HEMATOCRIT 38.5 % (41.0-60); HEMOGLOBIN 13.1 gm/dL (12-16); MEAN CELL VOLUME 91.7 fl (80-99); MEAN CORPUSCULAR HEMOGLOBIN 31.3 pg (26.0-30.0); MEAN CORPUSCULAR HGB CONC 34.1 pg (28.0-36.0); MEAN PLATELET VOLUME 10.3 fl; MONOCYTE ABSOLUTE 0.6 Th/cmm (0.3-1.0); PLATELET COUNT 189 Th/cmm (150-400); RED CELL DISTRIBUTION WIDTH 13.1 % (11.5-20.0)
[2017-11-04 16:32] LABS: WHITE BLOOD COUNT 18.9 Th/cmm (4.8-10.8)
[2017-11-04 21:26] LABS: TOTAL CELLS COUNTED 100
[2017-11-04 21:27] LABS: BAND NEUTROPHILE 42 % (0-10); BASOPHIL 0 % (0-3); EOSINOPHIL 0 % (0-5); LYMPHOCYTE 6 % (20-50); MONOCYTE 4 % (2-10); NEUTROPHILS 48 % (40-80); PLATELET ESTIMATE ADEQUATE (NORMAL); PLATELET MORPHOLOGY NORMAL (NORMAL)
[2017-11-04] MEDS: metroNIDAZOLE 500mg/NS 100mL 500 MG/100 ML BAG IV SCH (21:50)
--- NOTE | 2017-11-05 00:35 | Consultation ---
DATE OF CONSULTATION: INPATIENT GASTROINTESTINAL CONSULTATION CONSULTING PHYSICIAN: Dr. Thomas REASON FOR CONSULTATION: Coffee ground emesis. HISTORY OF PRESENT ILLNESS: The patient is a 62-year-old male who is a permanent resident of a nursing facility with past medical history significant for intellectual disability, dysphagia with G-tube, previous pneumonias, bipolar disorder who was admitted to the hospital from his nursing facility with worsening shortness of breath. Since the patient presented to [facility], the patient has required ICU admission and is now on BiPAP in order to maintain his oxygen saturation. He is now being treated for likely aspiration pneumonia event. It was also noted that the patient vomited several times overnight and this morning and that the emesis has a coffee ground appearance and thus GI is asked for evaluation. PAST MEDICAL HISTORY: Severe intellectual disability, hypertension, dysphagia, aspiration pneumonia in the past, bipolar disorder, pseudobulbar affect. PAST SURGICAL HISTORY: Placement of a G-tube in the past. FAMILY HISTORY: Noncontributory. SOCIAL HISTORY: The patient resides at a nursing facility. There is no documented history of alcoholism or tobacco use. REVIEW OF SYSTEMS: A 12-point review of systems was attempted with the patient and is negative other than the pertinent positives mentioned in the history of present illness. Specifically, there is no history of hematochezia or melena. CURRENT MEDICATIONS: Include Tylenol, Maalox, albuterol as needed, vitamin C, atenolol, bisacodyl, calcium, cefepime, fish oil, Robitussin, Atrovent, lactobacillus, milk of magnesia, Solu-Medrol, Zofran as needed, Protonix b.i.d. dosing, Seroquel, Fleet enema. PHYSICAL EXAMINATION: VITAL SIGNS: Blood pressure 109/77, pulse of 101, temperature 98.1, respiratory rate of 22, oxygenation 98%. GENERAL: The patient is lying at 30 degrees. He has a BiPAP in place. Alert and oriented x 1-2, in a moderate amount of distress. HEAD, EARS, EYES, NOSE AND THROAT: BiPAP is in place. No scleral icterus. Pupils appear to be equal and reactive. Normocephalic head otherwise. NECK: Supple. There is no obvious JVD or thyromegaly. CHEST: Mechanical breath sounds are noted. CARDIOVASCULAR: S1, S2 present, tachycardic rhythm. ABDOMEN: The G-tube site is identified clean, dry and intact. Soft. No guarding, no rebound, no distention. EXTREMITIES: 1+ pitting edema on both legs up to the ankles. Pulses are not present. SKIN: No obvious jaundice or other rashes. LABORATORY AND DIAGNOSTIC DATA: White blood cell count is 13, hemoglobin is 14.3, platelet count is 184. Sodium 134, BUN is 34, creatinine 0.7, AST 18, ALT 12, total bilirubin 0.7, lipase 7. A chest, abdomen and pelvis CT scan was performed and shows no evidence of pulmonary embolus. Bilateral interstitial infiltrates are noted predominantly on the right with the left lower lobe consolidation and effusion. IMPRESSION: This is a 62-year-old male with bipolar disorder, developmental delay with permanent G-tube, who is a resident of a nursing facility, now admitted to the hospital with pneumonia requiring BiPAP in the ICU. 1. Pneumonia. 2. Coffee ground emesis. 3. History of cognitive impairment and bipolar disorder. 4. Dysphagia with G-tube. DISCUSSION: It does appear that the patient has had several episodes of coffee ground emesis this morning and now has an NG tube in place. He likely is suffering some gastritis and mild GI bleeding from the stomach given the coffee grounds. It is encouraging that his hemoglobin is stable at 14.3, likely signifying this is not a significant GI bleed. EGD at this time would not be advisable given his respiratory status is poor and the GI bleed is not severe. RECOMMENDATIONS: 1. We will treat conservatively with PPI drip over the next 24-48 hours, which can then be transitioned back to b.i.d. dosing. 2. If the patient developed some more significant GI bleed, which may be manifested by hematemesis or severe drop in hemoglobin, or fair amount of melena then the patient likely would need intubation prior to more urgent EGD given his respiratory status. 3. Cycle the CBCs, trend and transfuse hemoglobin to keep greater than 8. 4. Can keep n.p.o. now given BiPAP. 5. Management for the patient's respiratory issues as per his other consultants. Thank you for allowing me to participate in the care of this patient. I will continue to follow. JOB# [id number]
[2017-11-05 04:50] LABS: % BASOPHILS 1.4 % (0.0-2.0); % EOSINOPHILS 0.1 % (0.0-5.0); % LYMPHOCYTES 5.7 % (20.0-50.0); % MONOCYTES 3.6 % (2.0-10.0); % NEUTROPHILS 89.2 % (40.0-80.0); BASOPHILE ABSOLUTE 0.2 Th/cumm (0-0.2); HEMATOCRIT 38.1 % (41.0-60); HEMOGLOBIN 12.9 gm/dL (12-16); LYMPHOCYTE ABSOLUTE 0.8 Th/cmm (1.5-3.0); MEAN CELL VOLUME 91.9 fl (80-99); MEAN CORPUSCULAR HEMOGLOBIN 31.2 pg (26.0-30.0); MEAN CORPUSCULAR HGB CONC 33.9 pg (28.0-36.0); MEAN PLATELET VOLUME 10.8 fl; MONOCYTE ABSOLUTE 0.5 Th/cmm (0.3-1.0); PLATELET COUNT 181 Th/cmm (150-400); RED BLOOD COUNT 4.14 Mil/cmm (4.30-5.70)
[2017-11-05 04:57] LABS: WHITE BLOOD COUNT 14.5 Th/cmm (4.8-10.8)
[2017-11-05 05:07] LABS: ALBUMIN 3.2 gm/dL (4.2-5.5); ALKALINE PHOSPHATASE 57 U/L (34-104); ANION GAP 9.8 (7.0-16.0); BILIRUBIN,TOTAL 0.7 mg/dL (0.3-1.0); BUN - UREA NITROGEN 43 mg/dL (7-25); CALCIUM SERUM 9.7 mg/dL (8.6-10.3); CHLORIDE 100 mEq/L (98-107); CREATININE - SERUM 0.7 mg/dL (0.7-1.3); GFR AFRICAN-AMERICAN > 60.0 ml/min (>90); GFR NON AFRICAN-AMERICAN > 60.0 ml/min; GLUCOSE 162 mg/dL (70-105); POTASSIUM SERUM 3.8 mEq/L (3.5-5.1); SGOT 17 U/L (13-39); SGPT/ALT 8 U/L (7-52); SODIUM SERUM 138 mEq/L (136-145); TOTAL PROTEIN,SERUM 6.5 gm/dL (6.0-8.3)
[2017-11-05] MEDS: methylPREDNISolone SS 40 mg Vial IVP SCH ×3 (05:21→20:54)
[2017-11-05] MEDS: metroNIDAZOLE 500mg/NS 100mL 500 MG/100 ML BAG IV SCH ×3 (05:21→20:53)
[2017-11-05] MEDS: Albuterol Nebulizer 2.5mg/3mL IH SCH ×4 (06:56→18:43)
[2017-11-05] MEDS: Ipratropium Neb 0.5 mg/2.5 mL UD IH SCH ×4 (06:56→18:42)
[2017-11-05] MEDS: Pantoprazole 80 MG in Sodium Chloride 0.9% 100 ML IV SCH ×2 (07:00→19:15)
--- NOTE | 2017-11-05 08:20 | Diagnostic Imaging Report ---
Exam: Portable chest x-ray HISTORY: Shortness of breath. Findings: Portable examination of the chest at 0759 hours reviewed and compared to prior study of the earlier. The study demonstrates bilateral pneumonic infiltrates and superimposed effusions. Mild congestion is present. Mediastinal structures midline the heart is not enlarged. NG tube passes stomach. IMPRESSION: Bilateral infiltrates, superimposed congestion. Follow-up examination recommended Bilateral pleural effusions.
--- NOTE | 2017-11-05 08:32 | GI Progress Note ---
Subjective - Review of Systems Service Date: 11/05/17 Subjective: Continues to require BiPAP to maintain sats. NG tube suctioned 500cc coffee ground material overnight Objective - Results Result Diagrams: 11/05/17 04:30 11/05/17 04:30 Recent Labs: Laboratory Last Values WBC 14.5 Th/cmm (4.8-10.8) H D 11/05/17 04:30 RBC 4.14 Mil/cmm (4.30-5.70) L 11/05/17 04:30 Hgb 12.9 gm/dL (12-16) 11/05/17 04:30 Hct 38.1 % (41.0-60) L 11/05/17 04:30 MCV 91.9 fl (80-99) 11/05/17 04:30 MCH 31.2 pg (26.0-30.0) H 11/05/17 04:30 MCHC Differential 33.9 pg (28.0-36.0) 11/05/17 04:30 RDW 13.0 % (11.5-20.0) 11/05/17 04:30 Plt Count 181 Th/cmm (150-400) 11/05/17 04:30 MPV 10.8 fl 11/05/17 04:30 Neutrophils % 89.2 % (40.0-80.0) H 11/05/17 04:30 Band Neutrophils % 42 % (0-10) H 11/04/17 16:14 Lymphocytes % 5.7 % (20.0-50.0) L 11/05/17 04:30 Monocytes % 3.6 % (2.0-10.0) 11/05/17 04:30 Eosinophils % 0.1 % (0.0-5.0) 11/05/17 04:30 Basophils % 1.4 % (0.0-2.0) 11/05/17 04:30 Neutrophils (Manual) 48 % (40-80) 11/04/17 16:14 Lymphocytes 6 % (20-50) L 11/04/17 16:14 Monocytes 4 % (2-10) 11/04/17 16:14 Eosinophils 0 % (0-5) 11/04/17 16:14 Basophils 0 % (0-3) 11/04/17 16:14 Platelet Estimate ADEQUATE (NORMAL) 11/04/17 16:14 Platelet Morphology NORMAL (NORMAL) 11/04/17 16:14 RBC Morph Micro Appear NORMAL (NORMAL) 11/04/17 16:14 PT 11.2 SECONDS (9.5-11.5) 11/03/17 10:00 INR 1.08 (0.5-1.4) 11/03/17 10:00 PTT (Actin FS) 25.4 SECONDS (26.0-38.0) L 11/03/17 10:00 D-Dimer 1570 ng/mL (100-400) H 11/03/17 10:00 Specimen Source Arterial 11/03/17 17:36 Sample Site RB 11/03/17 17:36 pH 7.48 (7.35-7.45) H 11/03/17 17:36 pCO2 36.0 mmHg (35.0-45.0) 11/03/17 17:36 pO2 50.0 mmHg (80.0-100.0) L 11/03/17 17:36 HCO3 27.3 mEq/L (20.0-26.0) H 11/03/17 17:36 Base Excess 3.3 mEq/L (-3.0-3.0) H 11/03/17 17:36 O2 Saturation 88.0 % (92.0-100.0) L 11/03/17 17:36 Alex Test NA 11/03/17 17:36 Vent Rate NA 11/03/17 17:36 Inspired O2 32 11/03/17 17:36 Tidal Volume NA 11/03/17 17:36 PEEP NA 11/03/17 17:36 Pressure (ins/psv/peep) NA 11/03/17 17:36 Critical Value E.CASAS 11/03/17 17:36 Sodium 138 mEq/L (136-145) 11/05/17 04:30 Potassium 3.8 mEq/L (3.5-5.1) 11/05/17 04:30 Chloride 100 mEq/L (98-107) 11/05/17 04:30 Carbon Dioxide 32.0 mEq/L (21.0-31.0) H 11/05/17 04:30 Anion Gap 9.8 (7.0-16.0) 11/05/17 04:30 BUN 43 mg/dL (7-25) H 11/05/17 04:30 Creatinine 0.7 mg/dL (0.7-1.3) 11/05/17 04:30 Est GFR ( Amer) > 60.0 ml/min (>90) 11/05/17 04:30 Est GFR (Non-Af Amer) > 60.0 ml/min 11/05/17 04:30 BUN/Creatinine Ratio 61.4 11/05/17 04:30 Glucose 162 mg/dL (70-105) H 11/05/17 04:30 POC Glucose 130 MG/DL (70 - 105) H 11/03/17 09:52 Hemoglobin A1c % 6.3 % (4.0-6.0) H 11/04/17 06:10 Calcium 9.7 mg/dL (8.6-10.3) 11/05/17 04:30 Total Bilirubin 0.7 mg/dL (0.3-1.0) 11/05/17 04:30 AST 17 U/L (13-39) 11/05/17 04:30 ALT 8 U/L (7-52) 11/05/17 04:30 Alkaline Phosphatase 57 U/L (34-104) 11/05/17 04:30 B-Natriuretic Peptide 28.6 pg/mL (5.0-100.0) 11/03/17 10:00 Total Protein 6.5 gm/dL (6.0-8.3) 11/05/17 04:30 Albumin 3.2 gm/dL (4.2-5.5) L 11/05/17 04:30 Globulin 3.3 gm/dL 11/05/17 04:30 Albumin/Globulin Ratio 1.0 (1.0-1.8) 11/05/17 04:30 Lipase 7 U/L (11-82) L 11/03/17 10:00 Urine Source CATH 11/03/17 14:10 Urine Color YELLOW 11/03/17 14:10 Urine Clarity CLEAR (CLEAR) 11/03/17 14:10 Urine pH 8.0 (4.6 - 8.0) 11/03/17 14:10 Ur Specific [place] 1.010 (1.005-1.030) 11/03/17 14:10 Urine Protein NEGATIVE mg/dL (NEGATIVE) 11/03/17 14:10 Urine Glucose (UA) NEGATIVE mg/dL (NEGATIVE) 11/03/17 14:10 Urine Ketones NEGATIVE mg/dL (NEGATIVE) 11/03/17 14:10 Urine Blood NEGATIVE (NEGATIVE) 11/03/17 14:10 Urine Nitrate NEGATIVE (NEGATIVE) 11/03/17 14:10 Urine Bilirubin NEGATIVE (NEGATIVE) 11/03/17 14:10 Urine Urobilinogen 1.0 E.U./dL (0.2 - 1.0) 11/03/17 14:10 Ur Leukocyte Esterase NEGATIVE (NEGATIVE) 11/03/17 14:10 Urine RBC NONE SEEN /hpf (0-5) 11/03/17 14:10 Urine WBC NONE SEEN /hpf (0-5) 11/03/17 14:10 Ur Epithelial Cells NONE SEEN /lpf (FEW) 11/03/17 14:10 Urine Bacteria NONE SEEN /hpf (NONE SEEN) 11/03/17 14:10 Influenza A (Rapid) NEG FOR INF A 11/03/17 15:00 Influenza B (Rapid) NEG FOR INF B 11/03/17 15:00 - Physical Exam Vitals and I&O: Vital Signs Temp 96 F 11/05/17 04:00 Pulse 99 11/05/17 06:00 Resp 25 11/05/17 06:56 BP 129/74 11/05/17 06:00 Pulse Ox 97 11/05/17 06:56 Intake & Output 11/04/17 11/05/17 11/05/17 18:59 06:59 18:59 Intake Total 270 450 Output Total 1100 900 Balance -830 -450 Weight (lbs) 75.92 kg 75.296 kg Intake: Intake, IV Amount 150 450 Cefepime 1 gm In Dextrose 50 50 5% 50 ml @ 100 mls/hr IV Q12H [facility] Rx#:[id number] KCL 20mEq/100mL Premix 20 100 meq In 100 ml @ 50 mls/ hr IV X1 ONE Rx#: [id number] Pantoprazole 80 mg In 200 Sodium Chloride 0.9% 100 ml @ 10 mls/hr IV Q10H [facility] Rx#:[id number] metroNIDAZOLE 500mg/NS 200 100mL 500 mg In 100 ml @ 100 mls/hr IV Q8HR [facility] Rx #:[id number] Other 120 Output: Gastric Drainage 800 500 Urine 300 400 Other: # Bowel Movements 0 Active Medications: Current Medications Acetaminophen (Tylenol 650mg/20.3ml Suspension) 650 mg GT Q4H PRN PRN Reason: PAIN OR TEMP >100 Stop: 01/02/18 13:11 Last Admin: 11/03/17 23:40 Dose: 650 mg Acetaminophen (Tylenol) 650 mg PO Q4HR PRN PRN Reason: Pain Or Fever above 101 Stop: 01/02/18 13:20 Al Hydrox/Mg Hydrox/Simethicone (Maalox) 30 ml PO Q6HR PRN PRN Reason: Dyspepsia Stop: 01/02/18 13:20 Albuterol Sulfate (Albuterol 2.5mg/3ml Neb Ud) 2.5 mg HHN Q4HRT PRN PRN Reason: Congestion Stop: 01/02/18 13:11 Last Admin: 11/03/17 22:14 Dose: 2.5 mg Albuterol Sulfate (Albuterol 2.5mg/3ml Neb Ud) 2.5 mg IH QID [facility] Stop: 01/02/18 16:59 Last Admin: 11/05/17 06:56 Dose: 2.5 mg Ascorbic Acid (Vitamin C) 500 mg GT BID [facility] Stop: 01/02/18 16:59 Last Admin: 11/04/17 17:59 Dose: 500 mg Bisacodyl (Dulcolax 10 Mg Supp) 10 mg RC DAILY PRN PRN Reason: IF MOM INEFFECTIVE Stop: 01/02/18 13:11 Calcium Carbonate (Tums) 1,250 mg GT DAILY [facility] Stop: 01/03/18 08:59 Last Admin: 11/04/17 10:08 Dose: Not Given Dextromethorphan/Quinidine (Nuedexta 20mg-10mg) 1 cap GT BID [facility] Stop: 01/02/18 16:59 Last Admin: 11/04/17 17:59 Dose: 1 cap Fish Oil ([place] 3) 1,000 mg PO DAILY [facility] Stop: 01/03/18 08:59 Last Admin: 11/04/17 10:08 Dose: Not Given Guaifenesin (Robitussin) 100 mg PO Q4H PRN PRN Reason: Cough or Congestion Stop: 01/02/18 13:20 Cefepime HCl 1 gm/ Dextrose 50 mls @ 100 mls/hr IV Q12H [facility] Stop: 01/02/18 13:59 Last Infusion: 11/05/17 02:50 Dose: Infused Pantoprazole Sodium 80 mg/ (Sodium Chloride) 100 mls @ 10 mls/hr IV Q10H [facility] Stop: 01/03/18 10:59 Last Infusion: 11/05/17 06:30 Dose: Infused Metronidazole (Flagyl) 500 mg in 100 mls @ 100 mls/hr IV Q8HR [facility] Stop: 01/03/18 20:59 Last Infusion: 11/05/17 06:21 Dose: Infused Ipratropium [place] (Atrovent Neb 0.5mg/2.5ml) 0.5 mg HHN Q4HRT PRN PRN Reason: Congestion Stop: 01/02/18 13:11 Last Admin: 11/03/17 22:14 Dose: 0.5 mg Ipratropium [place] (Atrovent Neb 0.5mg/2.5ml) 0.5 mg IH QID [facility] Stop: 01/02/18 16:59 Last Admin: 11/05/17 06:56 Dose: 0.5 mg Lactobacillus Rhamnosus (Culturelle 15b) 1 each PO DAILY [facility] Stop: 01/03/18 08:59 Last Admin: 11/04/17 10:08 Dose: Not Given Magnesium Hydroxide (Milk Of Magnesia) 30 ml GT Q72H PRN PRN Reason: NO BM (CONSTIPATION) Stop: 01/02/18 13:11 Methylprednisolone Sodium Succinate (Solu-Medrol) 80 mg IVP Q8HR [facility] Stop: 01/02/18 20:59 Last Admin: 11/05/17 05:21 Dose: 80 mg Miscellaneous (Calcium Carb/Magnesium Hydrox [Mi-Acid Ds Tablet]) 1 each GT QID [facility] Stop: 01/02/18 16:59 Miscellaneous (Vte Chemical Prophylaxis Screen/ Admission) 1 ea MC PRN PRN PRN Reason: PROTOCOL Stop: 01/02/18 16:14 Miscellaneous (Probiotic Screen) 1 ea MC PRN PRN PRN Reason: PROTOCOL Stop: 01/03/18 10:44 Mupirocin (Bactroban Oint) 1 appl NS BID [facility] Stop: 11/09/17 09:01 Last Admin: 11/04/17 17:00 Dose: 1 appl Ondansetron HCl (Zofran) 4 mg IV Q8H PRN PRN Reason: Nausea / Vomiting Stop: 01/02/18 13:20 Polyethylene Glycol (Miralax) 17 gm GT DAILY [facility] Stop: 01/03/18 08:59 Last Admin: 11/04/17 10:09 Dose: Not Given Quetiapine Fumarate (Seroquel) 300 mg PO HS [facility] PRN Reason: Protocol Stop: 01/02/18 20:59 Last Admin: 11/04/17 21:50 Dose: 300 mg Quetiapine Fumarate (Seroquel) 200 mg GT QAM [facility] PRN Reason: Protocol Stop: 01/03/18 08:59 Last Admin: 11/04/17 10:09 Dose: Not Given Sodium Phosphate (Fleet Enema) 135 ml RC PRN PRN PRN Reason: IF DULCOLAX INEFFECTIVE Stop: 01/02/18 13:11 Trazodone HCl (Desyrel) 25 mg GT HS [facility] PRN Reason: Protocol Stop: 01/02/18 20:59 Last Admin: 11/04/17 22:18 Dose: 25 mg Valproate Sodium (Depakene) 625 mg GT DAILY [facility] PRN Reason: Protocol Stop: 01/03/18 08:59 Last Admin: 11/04/17 10:09 Dose: Not Given Valproate Sodium (Depakene) 750 mg GT HS [facility] PRN Reason: Protocol Stop: 01/02/18 20:59 Last Admin: 11/04/17 21:50 Dose: 750 mg Vitamin D (Vitamin D) 400 iu PO QPM [facility] Stop: 01/02/18 16:59 Last Admin: 11/04/17 17:59 Dose: 400 iu General: Alert HEENT: Atraumatic, PERRLA Neck: Supple Cardiovascular: Regular rate Abdomen: Bowel sounds, Soft, Obese, Other (non tender, no guard, no rebound,) - Procedures Procedures: Procedures Procedure Code Date CHANGE FEEDING DEVICE IN UP INTEST TRACT, CCNA APPROACH [id number] 09/11/17 CHANGE GASTROSTOMY TUBE 09437 07/06/17 EGD BIOPSY SINGLE/MULTIPLE 74709 09/11/[address] GASTROSTOMY TUBE 99921 02/16/09 EXCISION OF STOMACH, ENDO, DIAGN [id number] 09/11/17 INSERT EMERGENCY AIRWAY 97918 12/21/16 INSERTION OF ENDOTRACHEAL AIRWAY INTO TRACHEA, VIA OPENING [id number] 12/21/16 INSERTION OF INFUSION DEVICE INTO R ATRIUM, PERC APPROACH [id number] 12/21/16 OTHER ENDOSCOPY OF SM INTEST 45.13 02/16/09 REPLACE GASTROSTOMY TUBE 97.02 02/16/09 RESPIRATORY VENTILATION, GREATER THAN 96 CONSECUTIVE HOURS [id number] 12/21/16 VENT MGMT INPAT INIT DAY 75640 12/21/16 VENT MGMT INPAT SUBQ DAY 26159 12/21/16 Assessment/Plan - Problem List Patient Problems: All Active Problems COUGH AND CONGESTION (Acute) Cellulitis at gastrostomy tube site (Acute) K94.22 - Assessment Assessment: # Coffee ground emesis # Pneumonia with respiratory failure UGI bleed is likely, although seemingly not severe bleed as hgb has not rapidly dropped. EGD is indicated, although cannot be done safely while pt requires BiPAP. We will have to wait until BiPAP requirement has come off or he is intubated. Plan: - EGD if BiPAP requirement is better or if the pt is intubated - cont PPI drip - cycle CBCs, transfuse to keep hgb > 8 - cont NG to intermittent suction - Abx as per primary
[2017-11-05] MEDS: Lactobacillus Rhamnosus GG 15 Billion CFU CAP.SPRINK PO SCH (08:58)
[2017-11-05] MEDS: Multivitamin w/ Minerals Tab GT SCH (08:58)
[2017-11-05] MEDS: POLYETHYLENE GLYCOL 3350 17 GM PACK GT SCH (08:59)
[2017-11-05] MEDS: Fish Oil 1,000 MG SGL PO SCH (09:01)
[2017-11-05] MEDS: Dextromethorphan/Quinidine 20mg/10mg Cap GT SCH ×2 (09:01→17:40)
[2017-11-05 12:03] LABS: ALLEN TEST YES; pH 7.46 (7.35-7.45)
--- NOTE | 2017-11-05 15:54 | Internal Medicine Prog Note ---
Internal Medicine Subjective - Subjective Service Date: 11/05/17 Patient seen and examined:: with staff Patient is:: awake, confused Patient Complaints of:: vomitting Per staff patient has:: tolerating meds Internal Medicine Objective - Results Result Diagrams: 11/05/17 04:30 11/05/17 04:30 Recent Labs: Laboratory Last Values WBC 14.5 Th/cmm (4.8-10.8) H D 11/05/17 04:30 RBC 4.14 Mil/cmm (4.30-5.70) L 11/05/17 04:30 Hgb 12.9 gm/dL (12-16) 11/05/17 04:30 Hct 38.1 % (41.0-60) L 11/05/17 04:30 MCV 91.9 fl (80-99) 11/05/17 04:30 MCH 31.2 pg (26.0-30.0) H 11/05/17 04:30 MCHC Differential 33.9 pg (28.0-36.0) 11/05/17 04:30 RDW 13.0 % (11.5-20.0) 11/05/17 04:30 Plt Count 181 Th/cmm (150-400) 11/05/17 04:30 MPV 10.8 fl 11/05/17 04:30 Neutrophils % 89.2 % (40.0-80.0) H 11/05/17 04:30 Band Neutrophils % 42 % (0-10) H 11/04/17 16:14 Lymphocytes % 5.7 % (20.0-50.0) L 11/05/17 04:30 Monocytes % 3.6 % (2.0-10.0) 11/05/17 04:30 Eosinophils % 0.1 % (0.0-5.0) 11/05/17 04:30 Basophils % 1.4 % (0.0-2.0) 11/05/17 04:30 Neutrophils (Manual) 48 % (40-80) 11/04/17 16:14 Lymphocytes 6 % (20-50) L 11/04/17 16:14 Monocytes 4 % (2-10) 11/04/17 16:14 Eosinophils 0 % (0-5) 11/04/17 16:14 Basophils 0 % (0-3) 11/04/17 16:14 Platelet Estimate ADEQUATE (NORMAL) 11/04/17 16:14 Platelet Morphology NORMAL (NORMAL) 11/04/17 16:14 RBC Morph Micro Appear NORMAL (NORMAL) 11/04/17 16:14 PT 11.2 SECONDS (9.5-11.5) 11/03/17 10:00 INR 1.08 (0.5-1.4) 11/03/17 10:00 PTT (Actin FS) 25.4 SECONDS (26.0-38.0) L 11/03/17 10:00 D-Dimer 1570 ng/mL (100-400) H 11/03/17 10:00 Specimen Source Arterial 11/05/17 11:45 Sample Site Right Radial 11/05/17 11:45 pH 7.46 (7.35-7.45) H 11/05/17 11:45 pCO2 47.0 mmHg (35.0-45.0) H 11/05/17 11:45 pO2 64.0 mmHg (80.0-100.0) L 11/05/17 11:45 HCO3 31.4 mEq/L (20.0-26.0) H 11/05/17 11:45 Base Excess 8.4 mEq/L (-3.0-3.0) H 11/05/17 11:45 O2 Saturation 93.0 % (92.0-100.0) 11/05/17 11:45 Alex Test YES 11/05/17 11:45 Vent Rate 14 11/05/17 11:45 Inspired O2 50 11/05/17 11:45 Tidal Volume 450 11/05/17 11:45 PEEP 8 11/05/17 11:45 Pressure (ins/psv/peep) 10 11/05/17 11:45 Critical Value SH 11/05/17 11:45 Sodium 138 mEq/L (136-145) 11/05/17 04:30 Potassium 3.8 mEq/L (3.5-5.1) 11/05/17 04:30 Chloride 100 mEq/L (98-107) 11/05/17 04:30 Carbon Dioxide 32.0 mEq/L (21.0-31.0) H 11/05/17 04:30 Anion Gap 9.8 (7.0-16.0) 11/05/17 04:30 BUN 43 mg/dL (7-25) H 11/05/17 04:30 Creatinine 0.7 mg/dL (0.7-1.3) 11/05/17 04:30 Est GFR ( Amer) > 60.0 ml/min (>90) 11/05/17 04:30 Est GFR (Non-Af Amer) > 60.0 ml/min 11/05/17 04:30 BUN/Creatinine Ratio 61.4 11/05/17 04:30 Glucose 162 mg/dL (70-105) H 11/05/17 04:30 POC Glucose 130 MG/DL (70 - 105) H 11/03/17 09:52 Hemoglobin A1c % 6.3 % (4.0-6.0) H 11/04/17 06:10 Calcium 9.7 mg/dL (8.6-10.3) 11/05/17 04:30 Total Bilirubin 0.7 mg/dL (0.3-1.0) 11/05/17 04:30 AST 17 U/L (13-39) 11/05/17 04:30 ALT 8 U/L (7-52) 11/05/17 04:30 Alkaline Phosphatase 57 U/L (34-104) 11/05/17 04:30 B-Natriuretic Peptide 28.6 pg/mL (5.0-100.0) 11/03/17 10:00 Total Protein 6.5 gm/dL (6.0-8.3) 11/05/17 04:30 Albumin 3.2 gm/dL (4.2-5.5) L 11/05/17 04:30 Globulin 3.3 gm/dL 11/05/17 04:30 Albumin/Globulin Ratio 1.0 (1.0-1.8) 11/05/17 04:30 Lipase 7 U/L (11-82) L 11/03/17 10:00 Urine Source CATH 11/03/17 14:10 Urine Color YELLOW 11/03/17 14:10 Urine Clarity CLEAR (CLEAR) 11/03/17 14:10 Urine pH 8.0 (4.6 - 8.0) 11/03/17 14:10 Ur Specific [place] 1.010 (1.005-1.030) 11/03/17 14:10 Urine Protein NEGATIVE mg/dL (NEGATIVE) 11/03/17 14:10 Urine Glucose (UA) NEGATIVE mg/dL (NEGATIVE) 11/03/17 14:10 Urine Ketones NEGATIVE mg/dL (NEGATIVE) 11/03/17 14:10 Urine Blood NEGATIVE (NEGATIVE) 11/03/17 14:10 Urine Nitrate NEGATIVE (NEGATIVE) 11/03/17 14:10 Urine Bilirubin NEGATIVE (NEGATIVE) 11/03/17 14:10 Urine Urobilinogen 1.0 E.U./dL (0.2 - 1.0) 11/03/17 14:10 Ur Leukocyte Esterase NEGATIVE (NEGATIVE) 11/03/17 14:10 Urine RBC NONE SEEN /hpf (0-5) 11/03/17 14:10 Urine WBC NONE SEEN /hpf (0-5) 11/03/17 14:10 Ur Epithelial Cells NONE SEEN /lpf (FEW) 11/03/17 14:10 Urine Bacteria NONE SEEN /hpf (NONE SEEN) 11/03/17 14:10 Influenza A (Rapid) NEG FOR INF A 11/03/17 15:00 Influenza B (Rapid) NEG FOR INF B 11/03/17 15:00 - Physical Exam Vitals and I&O: Vital Signs Temp 96.8 F 11/05/17 08:00 Pulse 82 11/05/17 11:00 Resp 20 11/05/17 14:56 BP 94/56 11/05/17 11:00 Pulse Ox 96 11/05/17 14:56 Intake & Output 11/04/17 11/05/17 11/05/17 18:59 06:59 18:59 Intake Total 270 450 Output Total 1100 900 Balance -830 -450 Weight (lbs) 167 lb 6 oz 166 lb Intake: Intake, IV Amount 150 450 Cefepime 1 gm In Dextrose 50 50 5% 50 ml @ 100 mls/hr IV Q12H [facility] Rx#:[id number] KCL 20mEq/100mL Premix 20 100 meq In 100 ml @ 50 mls/ hr IV X1 ONE Rx#: [id number] Pantoprazole 80 mg In 200 Sodium Chloride 0.9% 100 ml @ 10 mls/hr IV Q10H [facility] Rx#:[id number] metroNIDAZOLE 500mg/NS 200 100mL 500 mg In 100 ml @ 100 mls/hr IV Q8HR [facility] Rx #:[id number] Other 120 Output: Gastric Drainage 800 500 Urine 300 400 Other: # Bowel Movements 0 Active Medications: Current Medications Acetaminophen (Tylenol 650mg/20.3ml Suspension) 650 mg GT Q4H PRN PRN Reason: PAIN OR TEMP >100 Stop: 01/02/18 13:11 Last Admin: 11/03/17 23:40 Dose: 650 mg Acetaminophen (Tylenol) 650 mg PO Q4HR PRN PRN Reason: Pain Or Fever above 101 Stop: 01/02/18 13:20 Al Hydrox/Mg Hydrox/Simethicone (Maalox) 30 ml PO Q6HR PRN PRN Reason: Dyspepsia Stop: 01/02/18 13:20 Albuterol Sulfate (Albuterol 2.5mg/3ml Neb Ud) 2.5 mg HHN Q4HRT PRN PRN Reason: Congestion Stop: 01/02/18 13:11 Last Admin: 11/03/17 22:14 Dose: 2.5 mg Albuterol Sulfate (Albuterol 2.5mg/3ml Neb Ud) 2.5 mg IH QID [facility] Stop: 01/02/18 16:59 Last Admin: 11/05/17 14:56 Dose: 2.5 mg Ascorbic Acid (Vitamin C) 500 mg GT BID [facility] Stop: 01/02/18 16:59 Last Admin: 11/05/17 08:58 Dose: 500 mg Bisacodyl (Dulcolax 10 Mg Supp) 10 mg RC DAILY PRN PRN Reason: IF MOM INEFFECTIVE Stop: 01/02/18 13:11 Calcium Carbonate (Tums) 1,250 mg GT DAILY [facility] Stop: 01/03/18 08:59 Last Admin: 11/05/17 08:58 Dose: 1,250 mg Dextromethorphan/Quinidine (Nuedexta 20mg-10mg) 1 cap GT BID [facility] Stop: 01/02/18 16:59 Last Admin: 11/05/17 09:01 Dose: 1 cap Fish Oil ([place] 3) 1,000 mg PO DAILY [facility] Stop: 01/03/18 08:59 Last Admin: 11/05/17 09:01 Dose: 1,000 mg Guaifenesin (Robitussin) 100 mg PO Q4H PRN PRN Reason: Cough or Congestion Stop: 01/02/18 13:20 Cefepime HCl 1 gm/ Dextrose 50 mls @ 100 mls/hr IV Q12H [facility] Stop: 01/02/18 13:59 Last Admin: 11/05/17 14:53 Dose: 100 mls/hr Pantoprazole Sodium 80 mg/ (Sodium Chloride) 100 mls @ 10 mls/hr IV Q10H [facility] Stop: 01/03/18 10:59 Last Admin: 11/05/17 07:00 Dose: 10 mls/hr Metronidazole (Flagyl) 500 mg in 100 mls @ 100 mls/hr IV Q8HR [facility] Stop: 01/03/18 20:59 Last Admin: 11/05/17 12:39 Dose: 100 mls/hr Ipratropium [place] (Atrovent Neb 0.5mg/2.5ml) 0.5 mg HHN Q4HRT PRN PRN Reason: Congestion Stop: 01/02/18 13:11 Last Admin: 11/03/17 22:14 Dose: 0.5 mg Ipratropium [place] (Atrovent Neb 0.5mg/2.5ml) 0.5 mg IH QID [facility] Stop: 01/02/18 16:59 Last Admin: 11/05/17 14:56 Dose: 0.5 mg Lactobacillus Rhamnosus (Culturelle 15b) 1 each PO DAILY [facility] Stop: 01/03/18 08:59 Last Admin: 11/05/17 08:58 Dose: 1 each Magnesium Hydroxide (Milk Of Magnesia) 30 ml GT Q72H PRN PRN Reason: NO BM (CONSTIPATION) Stop: 01/02/18 13:11 Methylprednisolone Sodium Succinate (Solu-Medrol) 80 mg IVP Q8HR [facility] Stop: 01/02/18 20:59 Last Admin: 11/05/17 12:40 Dose: 80 mg Miscellaneous (Calcium Carb/Magnesium Hydrox [Mi-Acid Ds Tablet]) 1 each GT QID [facility] Stop: 01/02/18 16:59 Miscellaneous (Vte Chemical Prophylaxis Screen/ Admission) 1 ea MC PRN PRN PRN Reason: PROTOCOL Stop: 01/02/18 16:14 Miscellaneous (Probiotic Screen) 1 ea MC PRN PRN PRN Reason: PROTOCOL Stop: 01/03/18 10:44 Mupirocin (Bactroban Oint) 1 appl NS BID [facility] Stop: 11/09/17 09:01 Last Admin: 11/05/17 09:00 Dose: 1 appl Ondansetron HCl (Zofran) 4 mg IV Q8H PRN PRN Reason: Nausea / Vomiting Stop: 01/02/18 13:20 Polyethylene Glycol (Miralax) 17 gm GT DAILY [facility] Stop: 01/03/18 08:59 Last Admin: 11/05/17 08:59 Dose: 17 gm Quetiapine Fumarate (Seroquel) 300 mg PO HS [facility] PRN Reason: Protocol Stop: 01/02/18 20:59 Last Admin: 11/04/17 21:50 Dose: 300 mg Quetiapine Fumarate (Seroquel) 200 mg GT QAM [facility] PRN Reason: Protocol Stop: 01/03/18 08:59 Last Admin: 11/05/17 09:02 Dose: 200 mg Sodium Phosphate (Fleet Enema) 135 ml RC PRN PRN PRN Reason: IF DULCOLAX INEFFECTIVE Stop: 01/02/18 13:11 Trazodone HCl (Desyrel) 25 mg GT HS JESUS MANUEL PRN Reason: Protocol Stop: 01/02/18 20:59 Last Admin: 11/04/17 22:18 Dose: 25 mg Valproate Sodium (Depakene) 625 mg GT DAILY JESUS MANUEL PRN Reason: Protocol Stop: 01/03/18 08:59 Last Admin: 11/05/17 08:58 Dose: 625 mg Valproate Sodium (Depakene) 750 mg GT HS JESUS MANUEL PRN Reason: Protocol Stop: 01/02/18 20:59 Last Admin: 11/04/17 21:50 Dose: 750 mg Vitamin D (Vitamin D) 400 iu PO QPM JESUS MANUEL Stop: 01/02/18 16:59 Last Admin: 11/04/17 17:59 Dose: 400 iu General: weak, alert HEENT: NC/AT, PERRLA Lungs: CTAB Cardiovascular: Normal S1, Normal S2 Abdomen: distended Neurological: alert - Procedures Procedures: Procedures Procedure Code Date CHANGE FEEDING DEVICE IN UP INTEST TRACT, ALTERNATIVE MEDICINE PRACTITIONER APPROACH [id number] 09/11/17 CHANGE GASTROSTOMY TUBE 54631 07/06/17 EGD BIOPSY SINGLE/MULTIPLE 47880 09/11/[address] GASTROSTOMY TUBE 54477 02/16/09 EXCISION OF STOMACH, ENDO, DIAGN [id number] 09/11/17 INSERT EMERGENCY AIRWAY 07695 12/21/16 INSERTION OF ENDOTRACHEAL AIRWAY INTO TRACHEA, VIA OPENING [id number] 12/21/16 INSERTION OF INFUSION DEVICE INTO R [facility], PERC APPROACH [id number] 12/21/16 OTHER ENDOSCOPY OF SM INTEST 45.13 02/16/09 REPLACE GASTROSTOMY TUBE 97.02 02/16/09 RESPIRATORY VENTILATION, GREATER THAN 96 CONSECUTIVE HOURS [id number] 12/21/16 VENT MGMT INPAT INIT DAY 12/21/16 VENT MGMT INPAT SUBQ DAY 12/21/16 Internal Medicine Assmt/Plan - Assessment Assessment: HYPOXIC RESPIRATORY DISTRESS PNA ELEVATED DDIMER MRSA NARES GI BLEED ACUTE RENAL INSUFFICIENCY MILD PROTEIN CALORIE MALNUTRITION SEVERE INTELLECTUAL DISABILITY HTN DYSPHAGIA IMPLUSE CONTROL DISORDER INSOMNIA GASTRITIS BIPOLAR DISORDER PSEUDOBULAR AFFECT - Plan Plan: CONTINUE PROTONIX DRIP MONITOR H/H FOLLOW UP LABS IN AM CONTINUE WITH BIPAP CONTINUE CURRENT PLAN OF CARE Nutritional Asmnt/Malnutr-PDOC - Dietary Evaluation Malnutrition Findings (Please click <Entered> for more info): Nutritional Asmnt/Malnutrition Start: 11/04/17 15: 25 Text: Status: Complete Freq: Document 11/04/17 15:25 DION (Rec: 11/04/17 16:09 [facility] Nutritional Asmnt/Malnutrition Patient General Information Nutritional Screening High Risk Diagnosis PNA, acute respiratory failure Pertinent Medical Hx/Surgical Hx HTN, moderate intellectual disability, psychosis, anoxic encephalopathy, s/p aspiration PNA, gastrostomy, impulse control disorder, insommnia, gastritis, bipolar, pseudobulbar affect, sholelithiasis, cell carcinoma , PEG/G tube Subjective Information Pt seen resting in bed at time of visit, on bipap. Spoke with RN, pt had coffee groud vomiting x 5, on NGT suction, still on NPO. Current Diet Order/ Nutrition Support NPO Pertinent Medications vitamin C, tums, omega 3, culturelle, glagyl, bactroban, pantoprazole, miralax, kcal, seroquel, vitamin D Pertinent Labs 11/04 Na 134, K 3.2, Cl 97, BUN 34, Cr 0.7, Glucose 202, A1c 6.3 11/03 POC 130 Nutritional Hx/Data Height 5 ft 5 in Height (Calculated Centimeters) 165.1 Current Weight (lbs) 168 lb Weight (Calculated Kilograms) 76.2 Weight (Calculated Grams) 75554.5 [place] Body Weight 136 % [place] Body Weight 124 Body Mass Index (BMI) 27.9 Weight Status Overweight GI Symptoms GI Symptoms Vomitting Last BM none Skin Integrity/Comment: g tube site redness, presure area to scrotum and sacrum Estimated Nutritional Goals BEE in Kcals: Using Current wt Calories/Kcals/Kg 25-30 Kcals Calculated 9794-0176 Protein: Using Current wt Protein g/k-1.2 Protein Calculated 76-91 Fluid: ml 1900-2280ml (1ml/kcal) Nutritional Problem 1. Problem Problem inadequate energy intake Etiology pt having episodes of vomiting Signs/Symptoms: pt on NPO and nutrition support not initiated Intervention/Recommendation Comments 1. Monitor NPO status. 2. When GI function improved and medically appropriate, will consider initiate enteral feeding at low rate. Recommend start Nutren Pulmonary at 15ml/hr continuous, increase 10ml/hr q6hr as tolerated to goal rate of 55. This will provide 1980kcal, 90g protein and 1032ml free water, meeting 100 % of nutritional needs. 3. Monitor GI function, wt, labs and skin integrity 4. F/U as high risk in 2-3 days, 11/06-11/07 Expected Outcomes/Goals Expected Outcomes/Goals 1. Pt to meet at least 75% of nutritional needs. 2. Wt stability, skin to remain intact, GI function improved, labs to approach WNL .
[2017-11-06 04:55] LABS: BASOPHILE ABSOLUTE 0.2 Th/cumm (0-0.2); HEMATOCRIT 37.5 % (41.0-60); HEMOGLOBIN 12.7 gm/dL (12-16); LYMPHOCYTE ABSOLUTE 0.9 Th/cmm (1.5-3.0); MEAN CELL VOLUME 90.9 fl (80-99); MEAN CORPUSCULAR HEMOGLOBIN 30.7 pg (26.0-30.0); MEAN CORPUSCULAR HGB CONC 33.8 pg (28.0-36.0); MEAN PLATELET VOLUME 11.3 fl; MONOCYTE ABSOLUTE 0.5 Th/cmm (0.3-1.0); NEUTROPHILE ABSOLUTE 11.9 Th/cmm (1.8-8.0); PLATELET COUNT 209 Th/cmm (150-400); RED BLOOD COUNT 4.12 Mil/cmm (4.30-5.70); RED CELL DISTRIBUTION WIDTH 13.3 % (11.5-20.0)
[2017-11-06 05:11] LABS: WHITE BLOOD COUNT 13.5 Th/cmm (4.8-10.8)
[2017-11-06 05:13] LABS: ANION GAP 9.8 (7.0-16.0); BUN - UREA NITROGEN 57 mg/dL (7-25); CALCIUM SERUM 9.4 mg/dL (8.6-10.3); CARBON DIOXIDE 33.4 mEq/L (21.0-31.0); CHLORIDE 102 mEq/L (98-107); CREATININE - SERUM 0.6 mg/dL (0.7-1.3); GFR AFRICAN-AMERICAN > 60.0 ml/min (>90); GFR NON AFRICAN-AMERICAN > 60.0 ml/min; GLUCOSE 180 mg/dL (70-105); POTASSIUM SERUM 4.2 mEq/L (3.5-5.1); SODIUM SERUM 141 mEq/L (136-145)
[2017-11-06] MEDS: metroNIDAZOLE 500mg/NS 100mL 500 MG/100 ML BAG IV SCH ×3 (05:18→20:31)
[2017-11-06] MEDS: methylPREDNISolone SS 40 mg Vial IVP SCH ×3 (05:18→20:31)
[2017-11-06] MEDS: Pantoprazole 80 MG in Sodium Chloride 0.9% 100 ML IV SCH (05:19)
[2017-11-06 06:24] LABS: TOTAL CELLS COUNTED 100
[2017-11-06 06:25] LABS: BAND NEUTROPHILE 5 % (0-10); BASOPHIL 1 % (0-3); LYMPHOCYTE 5 % (20-50); MONOCYTE 2 % (2-10); NEUTROPHILS 87 % (40-80)
[2017-11-06 06:26] LABS: HYPOCHROMIA 1+; PLATELET ESTIMATE ADEQUATE (NORMAL)
[2017-11-06] MEDS: Ipratropium Neb 0.5 mg/2.5 mL UD IH SCH ×4 (07:13→19:22)
[2017-11-06] MEDS: Albuterol Nebulizer 2.5mg/3mL IH SCH ×4 (07:13→19:22)
[2017-11-06] MEDS: Fish Oil 1,000 MG SGL PO SCH (08:13)
[2017-11-06] MEDS: Lactobacillus Rhamnosus GG 15 Billion CFU CAP.SPRINK PO SCH (08:14)
[2017-11-06] MEDS: Multivitamin w/ Minerals Tab GT SCH (08:14)
[2017-11-06] MEDS: Dextromethorphan/Quinidine 20mg/10mg Cap GT SCH ×2 (08:14→16:40)
[2017-11-06] MEDS: POLYETHYLENE GLYCOL 3350 17 GM PACK GT SCH (08:14)
--- NOTE | 2017-11-06 08:42 | GI Progress Note ---
Subjective - Review of Systems Service Date: 11/06/17 Subjective: BiPAP is on, 100cc NG output overnight. Hgb 12.7 Objective - Results Result Diagrams: 11/06/17 04:30 11/06/17 04:30 Recent Labs: Laboratory Last Values WBC 13.5 Th/cmm (4.8-10.8) H 11/06/17 04:30 RBC 4.12 Mil/cmm (4.30-5.70) L 11/06/17 04:30 Hgb 12.7 gm/dL (12-16) 11/06/17 04:30 Hct 37.5 % (41.0-60) L 11/06/17 04:30 MCV 90.9 fl (80-99) 11/06/17 04:30 MCH 30.7 pg (26.0-30.0) H 11/06/17 04:30 MCHC Differential 33.8 pg (28.0-36.0) 11/06/17 04:30 RDW 13.3 % (11.5-20.0) 11/06/17 04:30 Plt Count 209 Th/cmm (150-400) 11/06/17 04:30 MPV 11.3 fl 11/06/17 04:30 Neutrophils % [employer]ER 11/06/17 04:30 Band Neutrophils % 5 % (0-10) 11/06/17 04:30 Lymphocytes % [employer] 11/06/17 04:30 Monocytes % [employer] 11/06/17 04:30 Eosinophils % [employer] 11/06/17 04:30 Basophils % [employer] 11/06/17 04:30 Neutrophils (Manual) 87 % (40-80) H 11/06/17 04:30 Lymphocytes 5 % (20-50) L 11/06/17 04:30 Monocytes 2 % (2-10) 11/06/17 04:30 Eosinophils 0 % (0-5) 11/04/17 16:14 Basophils 1 % (0-3) 11/06/17 04:30 Hypochromia 1+ 11/06/17 04:30 Platelet Estimate ADEQUATE (NORMAL) 11/06/17 04:30 Platelet Morphology NORMAL (NORMAL) 11/04/17 16:14 RBC Morph Micro Appear NORMAL (NORMAL) 11/04/17 16:14 PT 11.2 SECONDS (9.5-11.5) 11/03/17 10:00 INR 1.08 (0.5-1.4) 11/03/17 10:00 PTT (Actin FS) 25.4 SECONDS (26.0-38.0) L 11/03/17 10:00 D-Dimer 1570 ng/mL (100-400) H 11/03/17 10:00 Specimen Source Arterial 11/05/17 11:45 Sample Site Right Radial 11/05/17 11:45 pH 7.46 (7.35-7.45) H 11/05/17 11:45 pCO2 47.0 mmHg (35.0-45.0) H 11/05/17 11:45 pO2 64.0 mmHg (80.0-100.0) L 11/05/17 11:45 HCO3 31.4 mEq/L (20.0-26.0) H 11/05/17 11:45 Base Excess 8.4 mEq/L (-3.0-3.0) H 11/05/17 11:45 O2 Saturation 93.0 % (92.0-100.0) 11/05/17 11:45 Alex Test YES 11/05/17 11:45 Vent Rate 14 11/05/17 11:45 Inspired O2 50 11/05/17 11:45 Tidal Volume 450 11/05/17 11:45 PEEP 8 11/05/17 11:45 Pressure (ins/psv/peep) 10 11/05/17 11:45 Critical Value SH 11/05/17 11:45 Sodium 141 mEq/L (136-145) 11/06/17 04:30 Potassium 4.2 mEq/L (3.5-5.1) 11/06/17 04:30 Chloride 102 mEq/L (98-107) 11/06/17 04:30 Carbon Dioxide 33.4 mEq/L (21.0-31.0) H 11/06/17 04:30 Anion Gap 9.8 (7.0-16.0) 11/06/17 04:30 BUN 57 mg/dL (7-25) H 11/06/17 04:30 Creatinine 0.6 mg/dL (0.7-1.3) L 11/06/17 04:30 Est GFR ( Amer) > 60.0 ml/min (>90) 11/06/17 04:30 Est GFR (Non-Af Amer) > 60.0 ml/min 11/06/17 04:30 BUN/Creatinine Ratio 95.0 11/06/17 04:30 Glucose 180 mg/dL (70-105) H 11/06/17 04:30 POC Glucose 130 MG/DL (70 - 105) H 11/03/17 09:52 Hemoglobin A1c % 6.3 % (4.0-6.0) H 11/04/17 06:10 Calcium 9.4 mg/dL (8.6-10.3) 11/06/17 04:30 Total Bilirubin 0.7 mg/dL (0.3-1.0) 11/05/17 04:30 AST 17 U/L (13-39) 11/05/17 04:30 ALT 8 U/L (7-52) 11/05/17 04:30 Alkaline Phosphatase 57 U/L (34-104) 11/05/17 04:30 B-Natriuretic Peptide 28.6 pg/mL (5.0-100.0) 11/03/17 10:00 Total Protein 6.5 gm/dL (6.0-8.3) 11/05/17 04:30 Albumin 3.2 gm/dL (4.2-5.5) L 11/05/17 04:30 Globulin 3.3 gm/dL 11/05/17 04:30 Albumin/Globulin Ratio 1.0 (1.0-1.8) 11/05/17 04:30 Lipase 7 U/L (11-82) L 11/03/17 10:00 Urine Source CATH 11/03/17 14:10 Urine Color YELLOW 11/03/17 14:10 Urine Clarity CLEAR (CLEAR) 11/03/17 14:10 Urine pH 8.0 (4.6 - 8.0) 11/03/17 14:10 Ur Specific Mayo 1.010 (1.005-1.030) 11/03/17 14:10 Urine Protein NEGATIVE mg/dL (NEGATIVE) 11/03/17 14:10 Urine Glucose (UA) NEGATIVE mg/dL (NEGATIVE) 11/03/17 14:10 Urine Ketones NEGATIVE mg/dL (NEGATIVE) 11/03/17 14:10 Urine Blood NEGATIVE (NEGATIVE) 11/03/17 14:10 Urine Nitrate NEGATIVE (NEGATIVE) 11/03/17 14:10 Urine Bilirubin NEGATIVE (NEGATIVE) 11/03/17 14:10 Urine Urobilinogen 1.0 E.U./dL (0.2 - 1.0) 11/03/17 14:10 Ur Leukocyte Esterase NEGATIVE (NEGATIVE) 11/03/17 14:10 Urine RBC NONE SEEN /hpf (0-5) 11/03/17 14:10 Urine WBC NONE SEEN /hpf (0-5) 11/03/17 14:10 Ur Epithelial Cells NONE SEEN /lpf (FEW) 11/03/17 14:10 Urine Bacteria NONE SEEN /hpf (NONE SEEN) 11/03/17 14:10 Influenza A (Rapid) NEG FOR INF A 11/03/17 15:00 Influenza B (Rapid) NEG FOR INF B 11/03/17 15:00 - Physical Exam Vitals and I&O: Vital Signs Temp 96.8 F 11/06/17 04:00 Pulse 72 11/06/17 07:00 Resp 25 11/06/17 07:13 BP 119/68 11/06/17 07:00 Pulse Ox 96 11/06/17 07:13 Intake & Output 11/05/17 11/06/17 11/06/17 18:59 06:59 18:59 Intake Total 450 600 Output Total 400 550 Balance 50 50 Weight (lbs) 75.296 kg 75.296 kg Intake: Intake, IV Amount 250 350 Cefepime 1 gm In Dextrose 50 50 5% 50 ml @ 100 mls/hr IV Q12H [facility] Rx#:[id number] Pantoprazole 80 mg In 100 100 Sodium Chloride 0.9% 100 ml @ 10 mls/hr IV Q10H [facility] Rx#:[id number] metroNIDAZOLE 500mg/NS 100 200 100mL 500 mg In 100 ml @ 100 mls/hr IV Q8HR [facility] Rx #:[id number] Other 200 250 Output: Gastric Drainage 100 Urine 400 450 Active Medications: Current Medications Acetaminophen (Tylenol 650mg/20.3ml Suspension) 650 mg GT Q4H PRN PRN Reason: PAIN OR TEMP >100 Stop: 01/02/18 13:11 Last Admin: 11/03/17 23:40 Dose: 650 mg Acetaminophen (Tylenol) 650 mg PO Q4HR PRN PRN Reason: Pain Or Fever above 101 Stop: 01/02/18 13:20 Al Hydrox/Mg Hydrox/Simethicone (Maalox) 30 ml PO Q6HR PRN PRN Reason: Dyspepsia Stop: 01/02/18 13:20 Albuterol Sulfate (Albuterol 2.5mg/3ml Neb Ud) 2.5 mg HHN Q4HRT PRN PRN Reason: Congestion Stop: 01/02/18 13:11 Last Admin: 11/03/17 22:14 Dose: 2.5 mg Albuterol Sulfate (Albuterol 2.5mg/3ml Neb Ud) 2.5 mg IH QID [facility] Stop: 01/02/18 16:59 Last Admin: 11/06/17 07:13 Dose: 2.5 mg Ascorbic Acid (Vitamin C) 500 mg GT BID [facility] Stop: 01/02/18 16:59 Last Admin: 11/06/17 08:14 Dose: 500 mg Bisacodyl (Dulcolax 10 Mg Supp) 10 mg RC DAILY PRN PRN Reason: IF MOM INEFFECTIVE Stop: 01/02/18 13:11 Last Admin: 11/06/17 08:14 Dose: 10 mg Calcium Carbonate (Tums) 1,250 mg GT DAILY [facility] Stop: 01/03/18 08:59 Last Admin: 11/06/17 08:13 Dose: 1,250 mg Dextromethorphan/Quinidine (Nuedexta 20mg-10mg) 1 cap GT BID [facility] Stop: 01/02/18 16:59 Last Admin: 11/06/17 08:14 Dose: 1 cap Fish Oil (Swisher 3) 1,000 mg PO DAILY [facility] Stop: 01/03/18 08:59 Last Admin: 11/06/17 08:13 Dose: 1,000 mg Guaifenesin (Robitussin) 100 mg PO Q4H PRN PRN Reason: Cough or Congestion Stop: 01/02/18 13:20 Cefepime HCl 1 gm/ Dextrose 50 mls @ 100 mls/hr IV Q12H [facility] Stop: 01/02/18 13:59 Last Infusion: 11/06/17 02:47 Dose: Infused Pantoprazole Sodium 80 mg/ (Sodium Chloride) 100 mls @ 10 mls/hr IV Q10H [facility] Stop: 01/03/18 10:59 Last Admin: 11/06/17 05:19 Dose: 10 mls/hr Metronidazole (Flagyl) 500 mg in 100 mls @ 100 mls/hr IV Q8HR [facility] Stop: 01/03/18 20:59 Last Infusion: 11/06/17 06:18 Dose: Infused Ipratropium Dalton (Atrovent Neb 0.5mg/2.5ml) 0.5 mg HHN Q4HRT PRN PRN Reason: Congestion Stop: 01/02/18 13:11 Last Admin: 11/03/17 22:14 Dose: 0.5 mg Ipratropium Dalton (Atrovent Neb 0.5mg/2.5ml) 0.[address] [facility] Stop: 01/02/18 16:59 Last Admin: 11/06/17 07:13 Dose: 0.5 mg Lactobacillus Rhamnosus (Culturelle 15b) [address] [facility] Stop: 01/03/18 08:59 Last Admin: 11/06/17 08:14 Dose: 1 each Magnesium Hydroxide (Milk Of Magnesia) 30 ml GT Q72H PRN PRN Reason: NO BM (CONSTIPATION) Stop: 01/02/18 13:11 Last Admin: 11/05/17 21:43 Dose: 30 ml Methylprednisolone Sodium Succinate (Solu-Medrol) [address] [facility] Stop: 01/02/18 20:59 Last Admin: 11/06/17 05:18 Dose: 80 mg Miscellaneous (Calcium Carb/Magnesium Hydrox [Mi-Acid Ds Tablet]) [address] [facility] Stop: 01/02/18 16:59 Miscellaneous (Vte Chemical Prophylaxis Screen/ Admission) 1 ea MC PRN PRN PRN Reason: PROTOCOL Stop: 01/02/18 16:14 Miscellaneous (Probiotic Screen) 1 ea MC PRN PRN PRN Reason: PROTOCOL Stop: 01/03/18 10:44 Mupirocin (Bactroban Oint) [address] [facility] Stop: 11/09/17 09:01 Last Admin: 11/06/17 08:14 Dose: 1 appl Ondansetron HCl (Zofran) 4 mg IV Q8H PRN PRN Reason: Nausea / Vomiting Stop: 01/02/18 13:20 Polyethylene Glycol (Miralax) [address] [facility] Stop: 01/03/18 08:59 Last Admin: 11/06/17 08:14 Dose: 17 gm Quetiapine Fumarate (Seroquel) 300 mg PO HS [facility] PRN Reason: Protocol Stop: 01/02/18 20:59 Last Admin: 11/05/17 20:54 Dose: 300 mg Quetiapine Fumarate (Seroquel) 200 mg GT QAM [facility] PRN Reason: Protocol Stop: 01/03/18 08:59 Last Admin: 11/06/17 08:14 Dose: 200 mg Sodium Phosphate (Fleet Enema) 135 ml RC PRN PRN PRN Reason: IF DULCOLAX INEFFECTIVE Stop: 01/02/18 13:11 Trazodone HCl (Desyrel) 25 mg GT HS [facility]EL PRN Reason: Protocol Stop: 01/02/18 20:59 Last Admin: 11/05/17 20:53 Dose: 25 mg Valproate Sodium (Depakene) 625 mg GT DAILY [facility] PRN Reason: Protocol Stop: 01/03/18 08:59 Last Admin: 11/06/17 08:13 Dose: 625 mg Valproate Sodium (Depakene) 750 mg GT HS [facility]UEL PRN Reason: Protocol Stop: 01/02/18 20:59 Last Admin: 11/05/17 20:54 Dose: 750 mg Vitamin D (Vitamin D) 400 iu PO QPM [facility] Stop: 01/02/18 16:59 Last Admin: 11/05/17 17:40 Dose: 400 iu General: Alert HEENT: Atraumatic, PERRLA Neck: Supple Cardiovascular: Regular rate Abdomen: Bowel sounds, Soft, Obese, Other (non tender, no guard, no rebound,) - Procedures Procedures: Procedures Procedure Code Date CHANGE FEEDING DEVICE IN UP INTEST TRACT, FOREIGN LANGUAGES PROFESSOR APPROACH [id number] 09/11/17 CHANGE GASTROSTOMY TUBE 19537 07/06/17 EGD BIOPSY SINGLE/MULTIPLE 76796 09/11/[address] GASTROSTOMY TUBE 20147 02/16/09 EXCISION OF STOMACH, ENDO, DIAGN [id number] 09/11/17 INSERT EMERGENCY AIRWAY 00081 12/21/16 INSERTION OF ENDOTRACHEAL AIRWAY INTO TRACHEA, VIA OPENING [id number] 12/21/16 INSERTION OF INFUSION DEVICE INTO R ATRIUM, PERC APPROACH [id number] 12/21/16 OTHER ENDOSCOPY OF SM INTEST 45.13 02/16/09 REPLACE GASTROSTOMY TUBE 97.02 02/16/09 RESPIRATORY VENTILATION, GREATER THAN 96 CONSECUTIVE HOURS [id number] 12/21/16 VENT MGMT INPAT INIT DAY 12/21/16 VENT MGMT INPAT SUBQ DAY 12/21/16 Assessment/Plan - Problem List Patient Problems: All Active Problems COUGH AND CONGESTION (Acute) Cellulitis at gastrostomy tube site (Acute) K94.22 - Assessment Assessment: # Coffee ground emesis # Pneumonia with respiratory failure UGI bleed is likely, although seemingly not severe bleed as hgb has not rapidly dropped. EGD is indicated, although cannot be done safely while pt requires BiPAP. We will have to wait until BiPAP requirement has come off or he is intubated. Will start feeds on 11/06 given overall stability and remove NG tube Plan: - EGD if BiPAP requirement is better or if the pt is intubated - change PPI to bid dosing - cycle CBCs, transfuse to keep hgb > 8 - dc NG tube - Abx as per primary - miralax
--- NOTE | 2017-11-06 08:45 | Diagnostic Imaging Report ---
Exam: Chest x-ray HISTORY: Shortness of breath. Findings: Frontal examination of the chest was reviewed compared to prior study of 11/05/2017. The study demonstrates some mild congestion. Superimposed basilar infiltrates or effusions are present. Bony thorax is intact. Patient severely rotated. NG tube passes into stomach. IMPRESSION: Bilateral pneumonia superimposed effusions. Congestive heart failure cannot be excluded. Follow-up examination is recommended.
[2017-11-06 09:16] LABS: pH 7.49 (7.35-7.45)
[2017-11-06 09:17] LABS: ALLEN TEST YES
--- NOTE | 2017-11-06 13:31 | Internal Medicine Prog Note ---
Internal Medicine Subjective - Subjective Service Date: 11/06/17 Patient seen and examined:: with staff Patient is:: awake, confused Patient Complaints of:: vomitting Per staff patient has:: tolerating meds Internal Medicine Objective - Results Result Diagrams: 11/06/17 04:30 11/06/17 04:30 Recent Labs: Laboratory Last Values WBC 13.5 Th/cmm (4.8-10.8) H 11/06/17 04:30 RBC 4.12 Mil/cmm (4.30-5.70) L 11/06/17 04:30 Hgb 12.7 gm/dL (12-16) 11/06/17 04:30 Hct 37.5 % (41.0-60) L 11/06/17 04:30 MCV 90.9 fl (80-99) 11/06/17 04:30 MCH 30.7 pg (26.0-30.0) H 11/06/17 04:30 MCHC Differential 33.8 pg (28.0-36.0) 11/06/17 04:30 RDW 13.3 % (11.5-20.0) 11/06/17 04:30 Plt Count 209 Th/cmm (150-400) 11/06/17 04:30 MPV 11.3 fl 11/06/17 04:30 Neutrophils % [employer] 11/06/17 04:30 Band Neutrophils % 5 % (0-10) 11/06/17 04:30 Lymphocytes % [employer] 11/06/17 04:30 Monocytes % [employer] 11/06/17 04:30 Eosinophils % [employer] 11/06/17 04:30 Basophils % [employer] 11/06/17 04:30 Neutrophils (Manual) 87 % (40-80) H 11/06/17 04:30 Lymphocytes 5 % (20-50) L 11/06/17 04:30 Monocytes 2 % (2-10) 11/06/17 04:30 Eosinophils 0 % (0-5) 11/04/17 16:14 Basophils 1 % (0-3) 11/06/17 04:30 Hypochromia 1+ 11/06/17 04:30 Platelet Estimate ADEQUATE (NORMAL) 11/06/17 04:30 Platelet Morphology NORMAL (NORMAL) 11/04/17 16:14 RBC Morph Micro Appear NORMAL (NORMAL) 11/04/17 16:14 PT 11.2 SECONDS (9.5-11.5) 11/03/17 10:00 INR 1.08 (0.5-1.4) 11/03/17 10:00 PTT (Actin FS) 25.4 SECONDS (26.0-38.0) L 11/03/17 10:00 D-Dimer 1570 ng/mL (100-400) H 11/03/17 10:00 Specimen Source Arterial 11/06/17 09:00 Sample Site Right Radial 11/06/17 09:00 pH 7.49 (7.35-7.45) H 11/06/17 09:00 pCO2 45.0 mmHg (35.0-45.0) 11/06/17 09:00 pO2 66.0 mmHg (80.0-100.0) L 11/06/17 09:00 HCO3 32.4 mEq/L (20.0-26.0) H 11/06/17 09:00 Base Excess 9.7 mEq/L (-3.0-3.0) H 11/06/17 09:00 O2 Saturation 94.0 % (92.0-100.0) 11/06/17 09:00 Alex Test YES 11/06/17 09:00 Vent Rate 14 11/06/17 09:00 Inspired O2 50 11/06/17 09:00 Tidal Volume 500 11/06/17 09:00 PEEP 8 11/06/17 09:00 Pressure (ins/psv/peep) 10 11/06/17 09:00 Critical Value SH 11/06/17 09:00 Sodium 141 mEq/L (136-145) 11/06/17 04:30 Potassium 4.2 mEq/L (3.5-5.1) 11/06/17 04:30 Chloride 102 mEq/L (98-107) 11/06/17 04:30 Carbon Dioxide 33.4 mEq/L (21.0-31.0) H 11/06/17 04:30 Anion Gap 9.8 (7.0-16.0) 11/06/17 04:30 BUN 57 mg/dL (7-25) H 11/06/17 04:30 Creatinine 0.6 mg/dL (0.7-1.3) L 11/06/17 04:30 Est GFR ( Amer) > 60.0 ml/min (>90) 11/06/17 04:30 Est GFR (Non-Af Amer) > 60.0 ml/min 11/06/17 04:30 BUN/Creatinine Ratio 95.0 11/06/17 04:30 Glucose 180 mg/dL (70-105) H 11/06/17 04:30 POC Glucose 130 MG/DL (70 - 105) H 11/03/17 09:52 Hemoglobin A1c % 6.3 % (4.0-6.0) H 11/04/17 06:10 Calcium 9.4 mg/dL (8.6-10.3) 11/06/17 04:30 Total Bilirubin 0.7 mg/dL (0.3-1.0) 11/05/17 04:30 AST 17 U/L (13-39) 11/05/17 04:30 ALT 8 U/L (7-52) 11/05/17 04:30 Alkaline Phosphatase 57 U/L (34-104) 11/05/17 04:30 B-Natriuretic Peptide 28.6 pg/mL (5.0-100.0) 11/03/17 10:00 Total Protein 6.5 gm/dL (6.0-8.3) 11/05/17 04:30 Albumin 3.2 gm/dL (4.2-5.5) L 11/05/17 04:30 Globulin 3.3 gm/dL 11/05/17 04:30 Albumin/Globulin Ratio 1.0 (1.0-1.8) 11/05/17 04:30 Lipase 7 U/L (11-82) L 11/03/17 10:00 Urine Source CATH 11/03/17 14:10 Urine Color YELLOW 11/03/17 14:10 Urine Clarity CLEAR (CLEAR) 11/03/17 14:10 Urine pH 8.0 (4.6 - 8.0) 11/03/17 14:10 Ur Specific [place] 1.010 (1.005-1.030) 11/03/17 14:10 Urine Protein NEGATIVE mg/dL (NEGATIVE) 11/03/17 14:10 Urine Glucose (UA) NEGATIVE mg/dL (NEGATIVE) 11/03/17 14:10 Urine Ketones NEGATIVE mg/dL (NEGATIVE) 11/03/17 14:10 Urine Blood NEGATIVE (NEGATIVE) 11/03/17 14:10 Urine Nitrate NEGATIVE (NEGATIVE) 11/03/17 14:10 Urine Bilirubin NEGATIVE (NEGATIVE) 11/03/17 14:10 Urine Urobilinogen 1.0 E.U./dL (0.2 - 1.0) 11/03/17 14:10 Ur Leukocyte Esterase NEGATIVE (NEGATIVE) 11/03/17 14:10 Urine RBC NONE SEEN /hpf (0-5) 11/03/17 14:10 Urine WBC NONE SEEN /hpf (0-5) 11/03/17 14:10 Ur Epithelial Cells NONE SEEN /lpf (FEW) 11/03/17 14:10 Urine Bacteria NONE SEEN /hpf (NONE SEEN) 11/03/17 14:10 Influenza A (Rapid) NEG FOR INF A 11/03/17 15:00 Influenza B (Rapid) NEG FOR INF B 11/03/17 15:00 - Physical Exam Vitals and I&O: Vital Signs Temp 97 F 11/06/17 12:00 Pulse 90 11/06/17 13:00 Resp 19 11/06/17 13:00 BP 118/62 11/06/17 13:00 Pulse Ox 95 11/06/17 13:00 Intake & Output 11/05/17 11/06/17 11/06/17 18:59 06:59 18:59 Intake Total 450 600 Output Total 400 550 Balance 50 50 Weight (lbs) 166 lb 166 lb Intake: Intake, IV Amount 250 350 Cefepime 1 gm In Dextrose 50 50 5% 50 ml @ 100 mls/hr IV Q12H [facility] Rx#:[id number] Pantoprazole 80 mg In 100 100 Sodium Chloride 0.9% 100 ml @ 10 mls/hr IV Q10H JES[facility] MANUEL Rx#:[id number] metroNIDAZOLE 500mg/NS 100 200 100mL 500 mg In 100 ml @ 100 mls/hr IV Q8HR [facility]ES[facility] MANU[facility] Rx #:[id number] Other 200 250 Output: Gastric Drainage 100 Urine 400 450 Active Medications: Current Medications Acetaminophen (Tylenol 650mg/20.3ml Suspension) 650 mg GT Q4H PRN PRN Reason: PAIN OR TEMP >100 Stop: 01/02/18 13:11 Last Admin: 11/03/17 23:40 Dose: 650 mg Acetaminophen (Tylenol) 650 mg PO Q4HR PRN PRN Reason: Pain Or Fever above 101 Stop: 01/02/18 13:20 Al Hydrox/Mg Hydrox/Simethicone (Maalox) 30 ml PO Q6HR PRN PRN Reason: Dyspepsia Stop: 01/02/18 13:20 Albuterol Sulfate (Albuterol 2.5mg/3ml Neb Ud) 2.5 mg HHN Q4HRT PRN PRN Reason: Congestion Stop: 01/02/18 13:11 Last Admin: 11/03/17 22:14 Dose: 2.5 mg Albuterol Sulfate (Albuterol 2.5mg/3ml Neb Ud) 2.5 mg IH QID [facility] Stop: 01/02/18 16:59 Last Admin: 11/06/17 11:11 Dose: 2.5 mg Ascorbic Acid (Vitamin C) 500 mg GT BID [facility] Stop: 01/02/18 16:59 Last Admin: 11/06/17 08:14 Dose: 500 mg Bisacodyl (Dulcolax 10 Mg Supp) 10 mg RC DAILY PRN PRN Reason: IF MOM INEFFECTIVE Stop: 01/02/18 13:11 Last Admin: 11/06/17 08:14 Dose: 10 mg Calcium Carbonate (Tums) 1,250 mg GT DAILY [facility] Stop: 01/03/18 08:59 Last Admin: 11/06/17 08:13 Dose: 1,250 mg Dextromethorphan/Quinidine (Nuedexta 20mg-10mg) 1 cap GT BID [facility] Stop: 01/02/18 16:59 Last Admin: 11/06/17 08:14 Dose: 1 cap Fish Oil ([place] 3) 1,000 mg PO DAILY [facility] Stop: 01/03/18 08:59 Last Admin: 11/06/17 08:13 Dose: 1,000 mg Guaifenesin (Robitussin) 100 mg PO Q4H PRN PRN Reason: Cough or Congestion Stop: 01/02/18 13:20 Cefepime HCl 1 gm/ Dextrose 50 mls @ 100 mls/hr IV Q12H [facility] Stop: 01/02/18 13:59 Last Infusion: 11/06/17 02:47 Dose: Infused Metronidazole (Flagyl) 500 mg in 100 mls @ 100 mls/hr IV Q8HR [facility] Stop: 03/20/18 20:59 Last Admin: 11/06/17 12:27 Dose: 100 mls/hr Ipratropium [place] (Atrovent Neb 0.5mg/2.5ml) 0.5 mg HHN Q4HRT PRN PRN Reason: Congestion Stop: 01/02/18 13:11 Last Admin: 11/03/17 22:14 Dose: 0.5 mg Ipratropium [place] (Atrovent Neb 0.5mg/2.5ml) 0.5 mg IH QID [facility] Stop: 01/02/18 16:59 Last Admin: 11/06/17 11:11 Dose: 0.5 mg Lactobacillus Rhamnosus (Culturelle 15b) 1 each PO DAILY [facility] Stop: 01/03/18 08:59 Last Admin: 11/06/17 08:14 Dose: 1 each Magnesium Hydroxide (Milk Of Magnesia) 30 ml GT Q72H PRN PRN Reason: NO BM (CONSTIPATION) Stop: 01/02/18 13:11 Last Admin: 11/05/17 21:43 Dose: 30 ml Methylprednisolone Sodium Succinate (Solu-Medrol) 80 mg IVP Q8HR [facility] Stop: 01/02/18 20:59 Last Admin: 11/06/17 12:26 Dose: 80 mg Miscellaneous (Calcium Carb/Magnesium Hydrox [Mi-Acid Ds Tablet]) 1 each GT QID [facility] Stop: 01/02/18 16:59 Miscellaneous (Vte Chemical Prophylaxis Screen/ Admission) 1 ea PRN PRN PRN Reason: PROTOCOL Stop: 01/02/18 16:14 Miscellaneous (Probiotic Screen) 1 ea PRN PRN PRN Reason: PROTOCOL Stop: 01/03/18 10:44 Mupirocin (Bactroban Oint) 1 appl NS BID [facility] Stop: 11/09/17 09:01 Last Admin: 11/06/17 08:14 Dose: 1 appl Ondansetron HCl (Zofran) 4 mg IV Q8H PRN PRN Reason: Nausea / Vomiting Stop: 01/02/18 13:20 Pantoprazole Sodium (Protonix) 40 mg IVP BID [facility] Stop: 01/05/18 08:59 Last Admin: 11/06/17 09:47 Dose: 40 mg Polyethylene Glycol (Miralax) 17 gm GT DAILY [facility] Stop: 01/03/18 08:59 Last Admin: 11/06/17 08:14 Dose: 17 gm Quetiapine Fumarate (Seroquel) 300 mg PO HS [facility]UEL PRN Reason: Protocol Stop: 01/02/18 20:59 Last Admin: 11/05/17 20:54 Dose: 300 mg Quetiapine Fumarate (Seroquel) 200 mg GT QAM [facility] MANUEL PRN Reason: Protocol Stop: 01/03/18 08:59 Last Admin: 11/06/17 08:14 Dose: 200 mg Sodium Phosphate (Fleet Enema) 135 ml RC PRN PRN PRN Reason: IF DULCOLAX INEFFECTIVE Stop: 01/02/18 13:11 Trazodone HCl (Desyrel) 25 mg GT HS [facility] MANUEL PRN Reason: Protocol Stop: 01/02/18 20:59 Last Admin: 11/05/17 20:53 Dose: 25 mg Valproate Sodium (Depakene) 625 mg GT DAILY [facility]UEL PRN Reason: Protocol Stop: 01/03/18 08:59 Last Admin: 11/06/17 08:13 Dose: 625 mg Valproate Sodium (Depakene) 750 mg GT HS [facility]ES[facility] MANUEL PRN Reason: Protocol Stop: 01/02/18 20:59 Last Admin: 11/05/17 20:54 Dose: 750 mg Vitamin D (Vitamin D) 400 iu PO QPM [facility] Stop: 01/02/18 16:59 Last Admin: 11/05/17 17:40 Dose: 400 iu General: weak, alert HEENT: NC/AT, PERRLA Lungs: CTAB Cardiovascular: Normal S1, Normal S2 Abdomen: distended Neurological: alert - Procedures Procedures: Procedures Procedure Code Date CHANGE FEEDING DEVICE IN UP INTEST TRACT, DIRECTOR OF PATIENT CARE APPROACH [id number] 09/11/17 CHANGE GASTROSTOMY TUBE 19187 07/06/17 EGD BIOPSY SINGLE/MULTIPLE 09941 09/11/[address] GASTROSTOMY TUBE 09960 02/16/09 EXCISION OF STOMACH, ENDO, DIAGN [id number] 09/11/17 INSERT EMERGENCY AIRWAY 17783 12/21/16 INSERTION OF ENDOTRACHEAL AIRWAY INTO [place]HEA, VIA OPENING [id number] 12/21/16 INSERTION OF INFUSION DEVICE INTO R [facility], PERC APPROACH [id number] 12/21/16 OTHER ENDOSCOPY OF SM INTEST 45.13 02/16/09 REPLACE GASTROSTOMY TUBE 97.02 02/16/09 RESPIRATORY VENTILATION, GREATER THAN 96 CONSECUTIVE HOURS [id number] 12/21/16 VENT MGMT INPAT INIT DAY 12/21/16 VENT MGMT INPAT SUBQ 12/21/16 Internal Medicine Assmt/Plan - Assessment Assessment: HYPOXIC RESPIRATORY DISTRESS PNA ELEVATED DDIMER MRSA NARES GI BLEED ACUTE RENAL INSUFFICIENCY MILD PROTEIN CALORIE MALNUTRITION SEVERE INTELLECTUAL DISABILITY HTN DYSPHAGIA IMPLUSE CONTROL DISORDER INSOMNIA GASTRITIS BIPOLAR DISORDER PSEUDOBULAR AFFECT - Plan Plan: CONTINUE PROTONIX DRIP MONITOR H/H FOLLOW UP LABS IN AM CONTINUE WITH BIPAP CONTINUE CURRENT PLAN OF CARE Nutritional Asmnt/Malnutr-PDOC - Dietary Evaluation Malnutrition Findings (Please click <Entered> for more info): Nutritional Asmnt/Malnutrition Start: 11/04/17 15: 25 Text: Status: Complete Freq: Document 11/04/17 15:25 BEE (Rec: 11/04/17 16:09 DION [email or web address]) Nutritional Asmnt/Malnutrition Patient General Information Nutritional Screening High Risk Diagnosis PNA, acute respiratory failure Pertinent Medical Hx/Surgical Hx HTN, moderate intellectual disability, psychosis, anoxic encephalopathy, s/p aspiration PNA, gastrostomy, impulse control disorder, insommnia, gastritis, bipolar, pseudobulbar affect, sholelithiasis, cell carcinoma , PEG/G tube Subjective Information Pt seen resting in bed at time of visit, on bipap. Spoke with RN, pt had coffee groud vomiting x 5, on NGT suction, still on NPO. Current Diet Order/ Nutrition Support NPO Pertinent Medications vitamin C, tums, omega 3, culturelle, glagyl, bactroban, pantoprazole, miralax, kcal, seroquel, vitamin D Pertinent Labs 11/04 Na 134, K 3.2, Cl 97, BUN 34, Cr 0.7, Glucose 202, A1c 6.3 11/03 POC 130 Nutritional Hx/Data Height 5 ft 5 in Height (Calculated Centimeters) 165.1 Current Weight (lbs) 168 lb Weight (Calculated Kilograms) 76.2 Weight (Calculated Grams) 67503.5 [place] Body Weight 136 % [place] Body Weight 124 Body Mass Index (BMI) 27.9 Weight Status Overweight GI Symptoms GI Symptoms Vomitting Last BM none Skin Integrity/Comment: g tube site redness, presure area to scrotum and sacrum Estimated Nutritional Goals BEE in Kcals: Using Current wt Calories/Kcals/Kg 25-30 Kcals Calculated 4412-7906 Protein: Using Current wt Protein g/k-1.2 Protein Calculated 76-91 Fluid: ml 1900-2280ml (1ml/kcal) Nutritional Problem 1. Problem Problem inadequate energy intake Etiology pt having episodes of vomiting Signs/Symptoms: pt on NPO and nutrition support not initiated Intervention/Recommendation Comments 1. Monitor NPO status. 2. When GI function improved and medically appropriate, will consider initiate enteral feeding at low rate. Recommend start Nutren Pulmonary at 15ml/hr continuous, increase 10ml/hr q6hr as tolerated to goal rate of 55. This will provide 1980kcal, 90g protein and 1032ml free water, meeting 100 % of nutritional needs. 3. Monitor GI function, wt, labs and skin integrity 4. F/U as high risk in 2-3 days, 11/06-11/07 Expected Outcomes/Goals Expected Outcomes/Goals 1. Pt to meet at least 75% of nutritional needs. 2. Wt stability, skin to remain intact, GI function improved, labs to approach WNL .
[2017-11-07] MEDS: methylPREDNISolone SS 40 mg Vial IVP SCH ×3 (05:00→21:28)
[2017-11-07] MEDS: metroNIDAZOLE 500mg/NS 100mL 500 MG/100 ML BAG IV SCH ×3 (05:00→21:27)
[2017-11-07 07:11] LABS: EOSINOPHILE ABSOLUTE 1.4 Th/cmm (0.1-0.4); HEMATOCRIT 37.7 % (41.0-60); HEMOGLOBIN 12.8 gm/dL (12-16); LYMPHOCYTE ABSOLUTE 0.4 Th/cmm (1.5-3.0); MEAN CELL VOLUME 91.9 fl (80-99); MEAN CORPUSCULAR HEMOGLOBIN 31.1 pg (26.0-30.0); MEAN CORPUSCULAR HGB CONC 33.8 pg (28.0-36.0); MEAN PLATELET VOLUME 10.2 fl; MONOCYTE ABSOLUTE 2.8 Th/cmm (0.3-1.0); NEUTROPHILE ABSOLUTE 9.1 Th/cmm (1.8-8.0); PLATELET COUNT 207 Th/cmm (150-400); RED CELL DISTRIBUTION WIDTH 13.2 % (11.5-20.0)
[2017-11-07 07:30] LABS: WHITE BLOOD COUNT 13.7 Th/cmm (4.8-10.8)
[2017-11-07 07:46] LABS: BAND NEUTROPHILE 11 % (0-10); NEUTROPHILS 69 % (40-80); TOTAL CELLS COUNTED 100
[2017-11-07 07:47] LABS: LYMPHOCYTE 13 % (20-50); MONOCYTE 6 % (2-10)
--- NOTE | 2017-11-07 07:50 | Diagnostic Imaging Report ---
CHEST X-RAY: AP view INDICATION: Shortness of breath COMPARISON: 11/06/2017 FINDINGS: The prior NG tube has been removed. Left lower lung zone infiltrates are noted. There is elevation of the right hemidiaphragm with small right effusion. Heart size is normal. IMPRESSION: Persistent left lower lung zone infiltrates Small right effusion with elevation of the right hemidiaphragm. Pneumonia of the right lung base can also not be excluded.
[2017-11-07] MEDS: Ipratropium Neb 0.5 mg/2.5 mL UD IH SCH ×4 (08:17→20:41)
[2017-11-07] MEDS: Albuterol Nebulizer 2.5mg/3mL IH SCH ×4 (08:17→20:41)
--- NOTE | 2017-11-07 09:02 | GI Progress Note ---
Subjective - Review of Systems Service Date: 11/07/17 Subjective: Of BipPAP, but satting 90% on 4L Objective - Results Result Diagrams: 11/07/17 06:16 11/06/17 04:30 Recent Labs: Laboratory Last Values WBC 13.7 Th/cmm (4.8-10.8) H 11/07/17 06:16 RBC 4.10 Mil/cmm (4.30-5.70) L 11/07/17 06:16 Hgb 12.8 gm/dL (12-16) 11/07/17 06:16 Hct 37.7 % (41.0-60) L 11/07/17 06:16 MCV 91.9 fl (80-99) 11/07/17 06:16 MCH 31.1 pg (26.0-30.0) H 11/07/17 06:16 MCHC Differential 33.8 pg (28.0-36.0) 11/07/17 06:16 RDW 13.2 % (11.5-20.0) 11/07/17 06:16 Plt Count 207 Th/cmm (150-400) 11/07/17 06:16 MPV 10.2 fl 11/07/17 06:16 Neutrophils % LANGUAGE INTERPRETER 11/06/17 04:30 Band Neutrophils % 11 % (0-10) H 11/07/17 06:16 Lymphocytes % LANGUAGE INTERPRETER 11/06/17 04:30 Monocytes % LANGUAGE INTERPRETER 11/06/17 04:30 Eosinophils % LANGUAGE INTERPRETER 11/06/17 04:30 Basophils % LANGUAGE INTERPRETER 11/06/17 04:30 Neutrophils (Manual) 69 % (40-80) 11/07/17 06:16 Lymphocytes 13 % (20-50) L 11/07/17 06:16 Monocytes 6 % (2-10) 11/07/17 06:16 Eosinophils 0 % (0-5) 11/04/17 16:14 Basophils 1 % (0-3) 11/06/17 04:30 Hypochromia 1+ 11/06/17 04:30 Platelet Estimate ADEQUATE (NORMAL) 11/06/17 04:30 Platelet Morphology NORMAL (NORMAL) 11/04/17 16:14 RBC Morph Micro Appear NORMAL (NORMAL) 11/04/17 16:14 PT 11.2 SECONDS (9.5-11.5) 11/03/17 10:00 INR 1.08 (0.5-1.4) 11/03/17 10:00 PTT (Actin FS) 25.4 SECONDS (26.0-38.0) L 11/03/17 10:00 D-Dimer 1570 ng/mL (100-400) H 11/03/17 10:00 Specimen Source Arterial 11/06/17 09:00 Sample Site Right Radial 11/06/17 09:00 pH 7.49 (7.35-7.45) H 11/06/17 09:00 pCO2 45.0 mmHg (35.0-45.0) 11/06/17 09:00 pO2 66.0 mmHg (80.0-100.0) L 11/06/17 09:00 HCO3 32.4 mEq/L (20.0-26.0) H 11/06/17 09:00 Base Excess 9.7 mEq/L (-3.0-3.0) H 11/06/17 09:00 O2 Saturation 94.0 % (92.0-100.0) 11/06/17 09:00 Alex Test YES 11/06/17 09:00 Vent Rate 14 11/06/17 09:00 Inspired O2 50 11/06/17 09:00 Tidal Volume 500 11/06/17 09:00 PEEP 8 11/06/17 09:00 Pressure (ins/psv/peep) 10 11/06/17 09:00 Critical Value SH 11/06/17 09:00 Sodium 141 mEq/L (136-145) 11/06/17 04:30 Potassium 4.2 mEq/L (3.5-5.1) 11/06/17 04:30 Chloride 102 mEq/L (98-107) 11/06/17 04:30 Carbon Dioxide 33.4 mEq/L (21.0-31.0) H 11/06/17 04:30 Anion Gap 9.8 (7.0-16.0) 11/06/17 04:30 BUN 57 mg/dL (7-25) H 11/06/17 04:30 Creatinine 0.6 mg/dL (0.7-1.3) L 11/06/17 04:30 Est GFR ( Amer) > 60.0 ml/min (>90) 11/06/17 04:30 Est GFR (Non-Af Amer) > 60.0 ml/min 11/06/17 04:30 BUN/Creatinine Ratio 95.0 11/06/17 04:30 Glucose 180 mg/dL (70-105) H 11/06/17 04:30 POC Glucose 130 MG/DL (70 - 105) H 11/03/17 09:52 Hemoglobin A1c % 6.3 % (4.0-6.0) H 11/04/17 06:10 Calcium 9.4 mg/dL (8.6-10.3) 11/06/17 04:30 Total Bilirubin 0.7 mg/dL (0.3-1.0) 11/05/17 04:30 AST 17 U/L (13-39) 11/05/17 04:30 ALT 8 U/L (7-52) 11/05/17 04:30 Alkaline Phosphatase 57 U/L (34-104) 11/05/17 04:30 B-Natriuretic Peptide 28.6 pg/mL (5.0-100.0) 11/03/17 10:00 Total Protein 6.5 gm/dL (6.0-8.3) 11/05/17 04:30 Albumin 3.2 gm/dL (4.2-5.5) L 11/05/17 04:30 Globulin 3.3 gm/dL 11/05/17 04:30 Albumin/Globulin Ratio 1.0 (1.0-1.8) 11/05/17 04:30 Lipase 7 U/L (11-82) L 11/03/17 10:00 Urine Source CATH 11/03/17 14:10 Urine Color YELLOW 11/03/17 14:10 Urine Clarity CLEAR (CLEAR) 11/03/17 14:10 Urine pH 8.0 (4.6 - 8.0) 11/03/17 14:10 Ur Specific [place] 1.010 (1.005-1.030) 11/03/17 14:10 Urine Protein NEGATIVE mg/dL (NEGATIVE) 11/03/17 14:10 Urine Glucose (UA) NEGATIVE mg/dL (NEGATIVE) 11/03/17 14:10 Urine Ketones NEGATIVE mg/dL (NEGATIVE) 11/03/17 14:10 Urine Blood NEGATIVE (NEGATIVE) 11/03/17 14:10 Urine Nitrate NEGATIVE (NEGATIVE) 11/03/17 14:10 Urine Bilirubin NEGATIVE (NEGATIVE) 11/03/17 14:10 Urine Urobilinogen 1.0 E.U./dL (0.2 - 1.0) 11/03/17 14:10 Ur Leukocyte Esterase NEGATIVE (NEGATIVE) 11/03/17 14:10 Urine RBC NONE SEEN /hpf (0-5) 11/03/17 14:10 Urine WBC NONE SEEN /hpf (0-5) 11/03/17 14:10 Ur Epithelial Cells NONE SEEN /lpf (FEW) 11/03/17 14:10 Urine Bacteria NONE SEEN /hpf (NONE SEEN) 11/03/17 14:10 Influenza A (Rapid) NEG FOR INF A 11/03/17 15:00 Influenza B (Rapid) NEG FOR INF B 11/03/17 15:00 - Physical Exam Vitals and I&O: Vital Signs Temp 97.6 F 11/07/17 04:00 Pulse 76 11/07/17 08:23 Resp 18 11/07/17 08:23 BP 121/62 11/07/17 06:00 Pulse Ox 95 11/07/17 08:23 Intake & Output 11/06/17 11/07/17 11/07/17 18:59 06:59 18:59 Intake Total 100 810 Output Total 780 Balance 100 30 Weight (lbs) 75.296 kg Intake: Intake, IV Amount 100 300 Cefepime 1 gm In Dextrose 100 5% 50 ml @ 100 mls/hr IV Q12H [facility] Rx#:[id number] metroNIDAZOLE 500mg/NS 100 200 100mL 500 mg In 100 ml @ 100 mls/hr IV Q8HR [facility] Rx #:[id number] Oral 0 Tube Feeding 360 Other 150 Output: Urine 780 Other: # Bowel Movements 0 Active Medications: Current Medications Acetaminophen (Tylenol 650mg/20.3ml Suspension) 650 mg GT Q4H PRN PRN Reason: PAIN OR TEMP >100 Stop: 01/02/18 13:11 Last Admin: 11/03/17 23:40 Dose: 650 mg Acetaminophen (Tylenol) 650 mg PO Q4HR PRN PRN Reason: Pain Or Fever above 101 Stop: 01/02/18 13:20 Al Hydrox/Mg Hydrox/Simethicone (Maalox) 30 ml PO Q6HR PRN PRN Reason: Dyspepsia Stop: 01/02/18 13:20 Albuterol Sulfate (Albuterol 2.5mg/3ml Neb Ud) 2.5 mg HHN Q4HRT PRN PRN Reason: Congestion Stop: 01/02/18 13:11 Last Admin: 11/03/17 22:14 Dose: 2.5 mg Albuterol Sulfate (Albuterol 2.5mg/3ml Neb Ud) 2.5 mg IH QID [facility] Stop: 01/02/18 16:59 Last Admin: 11/07/17 08:17 Dose: 2.5 mg Ascorbic Acid (Vitamin C) 500 mg GT BID [facility] Stop: 01/02/18 16:59 Last Admin: 11/06/17 16:40 Dose: 500 mg Bisacodyl (Dulcolax 10 Mg Supp) 10 mg RC DAILY PRN PRN Reason: IF MOM INEFFECTIVE Stop: 01/02/18 13:11 Last Admin: 11/06/17 08:14 Dose: 10 mg Calcium Carbonate (Tums) 1,250 mg GT DAILY [facility] Stop: 01/03/18 08:59 Last Admin: 11/06/17 08:13 Dose: 1,250 mg Dextromethorphan/Quinidine (Nuedexta 20mg-10mg) 1 cap GT BID [facility] Stop: 01/02/18 16:59 Last Admin: 11/06/17 16:40 Dose: 1 cap Fish Oil ([place] 3) 1,000 mg PO DAILY [facility] Stop: 01/03/18 08:59 Last Admin: 11/06/17 08:13 Dose: 1,000 mg Guaifenesin (Robitussin) 100 mg PO Q4H PRN PRN Reason: Cough or Congestion Stop: 01/02/18 13:20 Cefepime HCl 1 gm/ Dextrose 50 mls @ 100 mls/hr IV Q12H [facility] Stop: 01/02/18 13:59 Last Infusion: 11/07/17 02:20 Dose: Infused Metronidazole (Flagyl) 500 mg in 100 mls @ 100 mls/hr IV Q8HR [facility] Stop: 01/03/18 20:59 Last Infusion: 11/07/17 06:00 Dose: Infused Ipratropium [place] (Atrovent Neb 0.5mg/2.5ml) 0.5 mg HHN Q4HRT PRN PRN Reason: Congestion Stop: 01/02/18 13:11 Last Admin: 11/03/17 22:14 Dose: 0.5 mg Ipratropium [place] (Atrovent Neb 0.5mg/2.5ml) 0.5 mg IH QID [facility] Stop: 01/02/18 16:59 Last Admin: 11/07/17 08:17 Dose: 0.5 mg Lactobacillus Rhamnosus (Culturelle 15b) 1 each PO DAILY [facility] Stop: 01/03/18 08:59 Last Admin: 11/06/17 08:14 Dose: 1 each Magnesium Hydroxide (Milk Of Magnesia) 30 ml GT Q72H PRN PRN Reason: NO BM (CONSTIPATION) Stop: 01/02/18 13:11 Last Admin: 11/05/17 21:43 Dose: 30 ml Methylprednisolone Sodium Succinate (Solu-Medrol) 80 mg IVP Q8HR [facility] Stop: 01/02/18 20:59 Last Admin: 11/07/17 05:00 Dose: 80 mg Miscellaneous (Calcium Carb/Magnesium Hydrox [Mi-Acid Ds Tablet]) 1 each GT QID [facility] Stop: 01/02/18 16:59 Miscellaneous (Vte Chemical Prophylaxis Screen/ Admission) 1 ea MC PRN PRN PRN Reason: PROTOCOL Stop: 01/02/18 16:14 Miscellaneous (Probiotic Screen) 1 ea MC PRN PRN PRN Reason: PROTOCOL Stop: 01/03/18 10:44 Mupirocin (Bactroban Oint) 1 appl NS BID [facility] Stop: 11/09/17 09:01 Last Admin: 11/06/17 16:40 Dose: 1 appl Ondansetron HCl (Zofran) 4 mg IV Q8H PRN PRN Reason: Nausea / Vomiting Stop: 01/02/18 13:20 Pantoprazole Sodium (Protonix) 40 mg IVP BID [facility] Stop: 01/05/18 08:59 Last Admin: 11/06/17 16:40 Dose: 40 mg Polyethylene Glycol (Miralax) 17 gm GT DAILY [facility] Stop: 01/03/18 08:59 Last Admin: 11/06/17 08:14 Dose: 17 gm Quetiapine Fumarate (Seroquel) 300 mg PO HS [facility] PRN Reason: Protocol Stop: 01/02/18 20:59 Last Admin: 11/06/17 20:32 Dose: 300 mg Quetiapine Fumarate (Seroquel) 200 mg GT QAM [facility] PRN Reason: Protocol Stop: 01/03/18 08:59 Last Admin: 11/06/17 08:14 Dose: 200 mg Sodium Phosphate (Fleet Enema) 135 ml RC PRN PRN PRN Reason: IF DULCOLAX INEFFECTIVE Stop: 01/02/18 13:11 Last Admin: 11/06/17 17:13 Dose: 135 ml Trazodone HCl (Desyrel) 25 mg GT HS [facility] PRN Reason: Protocol Stop: 01/02/18 20:59 Last Admin: 11/06/17 20:33 Dose: 25 mg Valproate Sodium (Depakene) 625 mg GT DAILY [facility] PRN Reason: Protocol Stop: 01/03/18 08:59 Last Admin: 11/06/17 08:13 Dose: 625 mg Valproate Sodium (Depakene) 750 mg GT HS [facility] PRN Reason: Protocol Stop: 01/02/18 20:59 Last Admin: 11/06/17 20:32 Dose: 750 mg Vitamin D (Vitamin D) 400 iu PO QPM [facility] Stop: 01/02/18 16:59 Last Admin: 11/06/17 16:40 Dose: 400 iu General: Alert HEENT: Atraumatic, PERRLA Neck: Supple Cardiovascular: Regular rate Abdomen: Bowel sounds, Soft, Obese, Other (non tender, no guard, no rebound,) - Procedures Procedures: Procedures Procedure Code Date CHANGE FEEDING DEVICE IN UP INTEST TRACT, COMBINATION BUILDING INSPECTOR APPROACH [id number] 09/11/17 CHANGE GASTROSTOMY TUBE 87851 07/06/17 EGD BIOPSY SINGLE/MULTIPLE 54940 09/11/[address] GASTROSTOMY TUBE 46569 02/16/09 EXCISION OF STOMACH, ENDO, DIAGN [id number] 09/11/17 INSERT EMERGENCY AIRWAY 16003 12/21/16 INSERTION OF ENDOTRACHEAL AIRWAY INTO TRACHEA, VIA OPENING [id number] 12/21/16 INSERTION OF INFUSION DEVICE INTO R ATRIUM, PERC APPROACH [id number] 12/21/16 OTHER ENDOSCOPY OF SM INTEST 45.13 02/16/09 REPLACE GASTROSTOMY TUBE 97.02 02/16/09 RESPIRATORY VENTILATION, GREATER THAN 96 CONSECUTIVE HOURS [id number] 12/21/16 VENT MGMT INPAT INIT DAY 97086 03/07/17 VENT MGMT INPAT SUBQ DAY 12/21/16 Assessment/Plan - Problem List Patient Problems: All Active Problems COUGH AND CONGESTION (Acute) Cellulitis at gastrostomy tube site (Acute) K94.22 - Assessment Assessment: # Coffee ground emesis # Pneumonia with respiratory failure UGI bleed is likely, although seemingly not severe bleed as hgb has not rapidly dropped. Suspect cesar morrow tear, esophagitis, or gastritis rather than malignancy based on clinical scenario. EGD is indicated, although cannot be done safely with his respiratory status. We will have to wait until BiPAP requirement has come off or he is intubated. Pt off BiPAP 11/07 although still tenuous respiratory status. Thus, would prefer not to do EGD until he is further improved given hgb is stable and no overt bleed. Will start feeds on 11/06 given overall stability and remove NG tube Plan: - EGD if respiratory status further improves - change PPI to bid dosing - cycle CBCs, transfuse to keep hgb > 8 - dc NG tube - Abx as per primary - miralax
[2017-11-07] MEDS: Dextromethorphan/Quinidine 20mg/10mg Cap GT SCH ×2 (09:28→17:30)
[2017-11-07] MEDS: POLYETHYLENE GLYCOL 3350 17 GM PACK GT SCH (09:29)
[2017-11-07] MEDS: Fish Oil 1,000 MG SGL PO SCH (09:29)
[2017-11-07] MEDS: Multivitamin w/ Minerals Tab GT SCH (09:30)
[2017-11-07] MEDS: Lactobacillus Rhamnosus GG 15 Billion CFU CAP.SPRINK PO SCH (09:30)
--- NOTE | 2017-11-07 13:09 | Internal Medicine Prog Note ---
Internal Medicine Subjective - Subjective Patient seen and examined:: with staff, chart reviewed Patient is:: awake, verbal, interactive, confused Patient Complaints of:: vomitting Per staff patient has:: no adverse event, no episodes of fall, agitated, tolerating meds Internal Medicine Objective - Results Result Diagrams: 11/07/17 06:16 11/06/17 04:30 Recent Labs: Laboratory Last Values WBC 13.7 Th/cmm (4.8-10.8) H 11/07/17 06:16 RBC 4.10 Mil/cmm (4.30-5.70) L 11/07/17 06:16 Hgb 12.8 gm/dL (12-16) 11/07/17 06:16 Hct 37.7 % (41.0-60) L 11/07/17 06:16 MCV 91.9 fl (80-99) 11/07/17 06:16 MCH 31.1 pg (26.0-30.0) H 11/07/17 06:16 MCHC Differential 33.8 pg (28.0-36.0) 11/07/17 06:16 RDW 13.2 % (11.5-20.0) 11/07/17 06:16 Plt Count 207 Th/cmm (150-400) 11/07/17 06:16 MPV 10.2 fl 11/07/17 06:16 Neutrophils % IT SALES REPRESENTATIVE 11/06/17 04:30 Band Neutrophils % 11 % (0-10) H 11/07/17 06:16 Lymphocytes % IT SALES REPRESENTATIVE 11/06/17 04:30 Monocytes % IT SALES REPRESENTATIVE 11/06/17 04:30 Eosinophils % IT SALES REPRESENTATIVE 11/06/17 04:30 Basophils % IT SALES REPRESENTATIVE 11/06/17 04:30 Neutrophils (Manual) 69 % (40-80) 11/07/17 06:16 Lymphocytes 13 % (20-50) L 11/07/17 06:16 Monocytes 6 % (2-10) 11/07/17 06:16 Eosinophils 0 % (0-5) 11/04/17 16:14 Basophils 1 % (0-3) 11/06/17 04:30 Hypochromia 1+ 11/06/17 04:30 Platelet Estimate ADEQUATE (NORMAL) 11/06/17 04:30 Platelet Morphology NORMAL (NORMAL) 11/04/17 16:14 RBC Morph Micro Appear NORMAL (NORMAL) 11/04/17 16:14 PT 11.2 SECONDS (9.5-11.5) 11/03/17 10:00 INR 1.08 (0.5-1.4) 11/03/17 10:00 PTT (Actin FS) 25.4 SECONDS (26.0-38.0) L 11/03/17 10:00 D-Dimer 1570 ng/mL (100-400) H 11/03/17 10:00 Specimen Source Arterial 11/06/17 09:00 Sample Site Right Radial 11/06/17 09:00 pH 7.49 (7.35-7.45) H 11/06/17 09:00 pCO2 45.0 mmHg (35.0-45.0) 11/06/17 09:00 pO2 66.0 mmHg (80.0-100.0) L 11/06/17 09:00 HCO3 32.4 mEq/L (20.0-26.0) H 11/06/17 09:00 Base Excess 9.7 mEq/L (-3.0-3.0) H 11/06/17 09:00 O2 Saturation 94.0 % (92.0-100.0) 11/06/17 09:00 Alex Test YES 11/06/17 09:00 Vent Rate 14 11/06/17 09:00 Inspired O2 50 11/06/17 09:00 Tidal Volume 500 11/06/17 09:00 PEEP 8 11/06/17 09:00 Pressure (ins/psv/peep) 10 11/06/17 09:00 Critical Value SH 11/06/17 09:00 Sodium 141 mEq/L (136-145) 11/06/17 04:30 Potassium 4.2 mEq/L (3.5-5.1) 11/06/17 04:30 Chloride 102 mEq/L (98-107) 11/06/17 04:30 Carbon Dioxide 33.4 mEq/L (21.0-31.0) H 11/06/17 04:30 Anion Gap 9.8 (7.0-16.0) 11/06/17 04:30 BUN 57 mg/dL (7-25) H 11/06/17 04:30 Creatinine 0.6 mg/dL (0.7-1.3) L 11/06/17 04:30 Est GFR ( Amer) > 60.0 ml/min (>90) 11/06/17 04:30 Est GFR (Non-Af Amer) > 60.0 ml/min 11/06/17 04:30 BUN/Creatinine Ratio 95.0 11/06/17 04:30 Glucose 180 mg/dL (70-105) H 11/06/17 04:30 POC Glucose 130 MG/DL (70 - 105) H 11/03/17 09:52 Hemoglobin A1c % 6.3 % (4.0-6.0) H 11/04/17 06:10 Calcium 9.4 mg/dL (8.6-10.3) 11/06/17 04:30 Total Bilirubin 0.7 mg/dL (0.3-1.0) 11/05/17 04:30 AST 17 U/L (13-39) 11/05/17 04:30 ALT 8 U/L (7-52) 11/05/17 04:30 Alkaline Phosphatase 57 U/L (34-104) 11/05/17 04:30 B-Natriuretic Peptide 28.6 pg/mL (5.0-100.0) 11/03/17 10:00 Total Protein 6.5 gm/dL (6.0-8.3) 11/05/17 04:30 Albumin 3.2 gm/dL (4.2-5.5) L 11/05/17 04:30 Globulin 3.3 gm/dL 11/05/17 04:30 Albumin/Globulin Ratio 1.0 (1.0-1.8) 11/05/17 04:30 Lipase 7 U/L (11-82) L 11/03/17 10:00 Urine Source CATH 11/03/17 14:10 Urine Color YELLOW 11/03/17 14:10 Urine Clarity CLEAR (CLEAR) 11/03/17 14:10 Urine pH 8.0 (4.6 - 8.0) 11/03/17 14:10 Ur Specific [place] 1.010 (1.005-1.030) 11/03/17 14:10 Urine Protein NEGATIVE mg/dL (NEGATIVE) 11/03/17 14:10 Urine Glucose (UA) NEGATIVE mg/dL (NEGATIVE) 11/03/17 14:10 Urine Ketones NEGATIVE mg/dL (NEGATIVE) 11/03/17 14:10 Urine Blood NEGATIVE (NEGATIVE) 11/03/17 14:10 Urine Nitrate NEGATIVE (NEGATIVE) 11/03/17 14:10 Urine Bilirubin NEGATIVE (NEGATIVE) 11/03/17 14:10 Urine Urobilinogen 1.0 E.U./dL (0.2 - 1.0) 11/03/17 14:10 Ur Leukocyte Esterase NEGATIVE (NEGATIVE) 11/03/17 14:10 Urine RBC NONE SEEN /hpf (0-5) 11/03/17 14:10 Urine WBC NONE SEEN /hpf (0-5) 11/03/17 14:10 Ur Epithelial Cells NONE SEEN /lpf (FEW) 11/03/17 14:10 Urine Bacteria NONE SEEN /hpf (NONE SEEN) 11/03/17 14:10 Influenza A (Rapid) NEG FOR INF A 11/03/17 15:00 Influenza B (Rapid) NEG FOR INF B 11/03/17 15:00 - Physical Exam Vitals and I&O: Vital Signs Temp 96.4 F 11/07/17 11:00 Pulse 75 11/07/17 12:08 Resp 18 11/07/17 12:08 BP 124/65 11/07/17 11:00 Pulse Ox 94 11/07/17 12:08 Intake & Output 11/06/17 11/07/17 11/07/17 18:59 06:59 18:59 Intake Total 100 810 Output Total 780 Balance 100 30 Weight (lbs) 75.296 kg Intake: Intake, IV Amount 100 300 Cefepime 1 gm In Dextrose 100 5% 50 ml @ 100 mls/hr IV Q12H [facility] Rx#:[id number] metroNIDAZOLE 500mg/NS 100 200 100mL 500 mg In 100 ml @ 100 mls/hr IV Q8HR [facility] Rx #:[id number] Oral 0 Tube Feeding 360 Other 150 Output: Urine 780 Other: # Bowel Movements 0 Active Medications: Current Medications Acetaminophen (Tylenol 650mg/20.3ml Suspension) 650 mg GT Q4H PRN PRN Reason: PAIN OR TEMP >100 Stop: 01/02/18 13:11 Last Admin: 11/03/17 23:40 Dose: 650 mg Acetaminophen (Tylenol) 650 mg PO Q4HR PRN PRN Reason: Pain Or Fever above 101 Stop: 01/02/18 13:20 Al Hydrox/Mg Hydrox/Simethicone (Maalox) 30 ml PO Q6HR PRN PRN Reason: Dyspepsia Stop: 01/02/18 13:20 Albuterol Sulfate (Albuterol 2.5mg/3ml Neb Ud) 2.5 mg HHN Q4HRT PRN PRN Reason: Congestion Stop: 01/02/18 13:11 Last Admin: 11/03/17 22:14 Dose: 2.5 mg Albuterol Sulfate (Albuterol 2.5mg/3ml Neb Ud) 2.5 mg IH QID [facility] Stop: 01/02/18 16:59 Last Admin: 11/07/17 12:01 Dose: 2.5 mg Ascorbic Acid (Vitamin C) 500 mg GT BID [facility] Stop: 01/02/18 16:59 Last Admin: 11/07/17 09:30 Dose: 500 mg Bisacodyl (Dulcolax 10 Mg Supp) 10 mg RC DAILY PRN PRN Reason: IF MOM INEFFECTIVE Stop: 01/02/18 13:11 Last Admin: 11/06/17 08:14 Dose: 10 mg Calcium Carbonate (Tums) 1,250 mg GT DAILY [facility] Stop: 01/03/18 08:59 Last Admin: 11/07/17 09:31 Dose: 1,250 mg Dextromethorphan/Quinidine (Nuedexta 20mg-10mg) 1 cap GT BID [facility] Stop: 01/02/18 16:59 Last Admin: 11/07/17 09:28 Dose: 1 cap Fish Oil ([place] 3) 1,000 mg PO DAILY [facility] Stop: 01/03/18 08:59 Last Admin: 11/07/17 09:29 Dose: 1,000 mg Guaifenesin (Robitussin) 100 mg PO Q4H PRN PRN Reason: Cough or Congestion Stop: 01/02/18 13:20 Cefepime HCl 1 gm/ Dextrose 50 mls @ 100 mls/hr IV Q12H [facility] Stop: 01/02/18 13:59 Last Infusion: 11/07/17 02:20 Dose: Infused Metronidazole (Flagyl) 500 mg in 100 mls @ 100 mls/hr IV Q8HR [facility] Stop: 01/03/18 20:59 Last Infusion: 11/07/17 06:00 Dose: Infused Ipratropium [place] (Atrovent Neb 0.5mg/2.5ml) 0.5 mg HHN Q4HRT PRN PRN Reason: Congestion Stop: 01/02/18 13:11 Last Admin: 11/03/17 22:14 Dose: 0.5 mg Ipratropium [place] (Atrovent Neb 0.5mg/2.5ml) 0.5 mg IH QID [facility] Stop: 01/02/18 16:59 Last Admin: 11/07/17 12:01 Dose: 0.5 mg Lactobacillus Rhamnosus (Culturelle 15b) 1 each PO DAILY [facility] Stop: 01/03/18 08:59 Last Admin: 11/07/17 09:30 Dose: 1 each Magnesium Hydroxide (Milk Of Magnesia) 30 ml GT Q72H PRN PRN Reason: NO BM (CONSTIPATION) Stop: 01/02/18 13:11 Last Admin: 11/05/17 21:43 Dose: 30 ml Methylprednisolone Sodium Succinate (Solu-Medrol) 80 mg IVP Q8HR [facility] Stop: 01/02/18 20:59 Last Admin: 11/07/17 05:00 Dose: 80 mg Miscellaneous (Calcium Carb/Magnesium Hydrox [Mi-Acid Ds Tablet]) 1 each GT QID [facility] Stop: 01/02/18 16:59 Miscellaneous (Vte Chemical Prophylaxis Screen/ Admission) 1 ea MC PRN PRN PRN Reason: PROTOCOL Stop: 01/02/18 16:14 Miscellaneous (Probiotic Screen) 1 ea PRN PRN PRN Reason: PROTOCOL Stop: 01/03/18 10:44 Mupirocin (Bactroban Oint) 1 appl NS BID [facility] Stop: 11/09/17 09:01 Last Admin: 11/07/17 09:31 Dose: 1 appl Ondansetron HCl (Zofran) 4 mg IV Q8H PRN PRN Reason: Nausea / Vomiting Stop: 01/02/18 13:20 Pantoprazole Sodium (Protonix) 40 mg IVP BID [facility] Stop: 01/05/18 08:59 Last Admin: 11/07/17 09:30 Dose: 40 mg Polyethylene Glycol (Miralax) 17 gm GT DAILY [facility] Stop: 01/03/18 08:59 Last Admin: 11/07/17 09:29 Dose: 17 gm Quetiapine Fumarate (Seroquel) 300 mg PO HS [facility] PRN Reason: Protocol Stop: 01/02/18 20:59 Last Admin: 11/06/17 20:32 Dose: 300 mg Quetiapine Fumarate (Seroquel) 200 mg GT QAM [facility] PRN Reason: Protocol Stop: 01/03/18 08:59 Last Admin: 11/07/17 09:28 Dose: 200 mg Sodium Phosphate (Fleet Enema) 135 ml RC PRN PRN PRN Reason: IF DULCOLAX INEFFECTIVE Stop: 01/02/18 13:11 Last Admin: 11/06/17 17:13 Dose: 135 ml Trazodone HCl (Desyrel) 25 mg GT HS JESUS MANUEL PRN Reason: Protocol Stop: 01/02/18 20:59 Last Admin: 11/06/17 20:33 Dose: 25 mg Valproate Sodium (Depakene) 625 mg GT DAILY JESUS MANUEL PRN Reason: Protocol Stop: 01/03/18 08:59 Last Admin: 11/07/17 09:29 Dose: 625 mg Valproate Sodium (Depakene) 750 mg GT HS JESUS MANUEL PRN Reason: Protocol Stop: 01/02/18 20:59 Last Admin: 11/06/17 20:32 Dose: 750 mg Vitamin D (Vitamin D) 400 iu PO QPM JESUS MANUEL Stop: 01/02/18 16:59 Last Admin: 11/06/17 16:40 Dose: 400 iu General: weak, demented HEENT: NC/AT, PERRLA Lungs: congested, rales, ronchi Cardiovascular: Normal S1, Normal S2 Abdomen: distended Extremities: excoriation, deformity Neurological: no change, unable to follow command - Procedures Procedures: Procedures Procedure Code Date CHANGE FEEDING DEVICE IN UP INTEST TRACT, CREATIVE ARTS THERAPIST APPROACH [id number] 09/11/17 CHANGE GASTROSTOMY TUBE 36569 07/06/17 EGD BIOPSY SINGLE/MULTIPLE 75457 09/11/[address] GASTROSTOMY TUBE 04238 02/16/09 EXCISION OF STOMACH, ENDO, DIAGN [id number] 09/11/17 INSERT EMERGENCY AIRWAY 03782 12/21/16 INSERTION OF ENDOTRACHEAL AIRWAY INTO TRACHEA, VIA OPENING [id number] 12/21/16 INSERTION OF INFUSION DEVICE INTO R [facility], PERC APPROACH [id number] 12/21/16 OTHER ENDOSCOPY OF SM INTEST 45.13 02/16/09 REPLACE GASTROSTOMY TUBE 97.02 02/16/09 RESPIRATORY VENTILATION, GREATER THAN 96 CONSECUTIVE HOURS [id number] 12/21/16 VENT MGMT INPAT INIT DAY 12/21/16 VENT MGMT INPAT SUBQ DAY 12/21/16 Internal Medicine Assmt/Plan - Assessment Assessment: - Assessment Assessment: HYPOXIC RESPIRATORY DISTRESS PNA ELEVATED DDIMER MRSA NARES GI BLEED ACUTE RENAL INSUFFICIENCY MILD PROTEIN CALORIE MALNUTRITION SEVERE INTELLECTUAL DISABILITY HTN DYSPHAGIA IMPLUSE CONTROL DISORDER INSOMNIA GASTRITIS BIPOLAR DISORDER PSEUDOBULAR AFFECT - Plan Plan: CONTINUE PROTONIX DRIP MONITOR H/H FOLLOW UP LABS IN AM CONTINUE WITH BIPAP CONTINUE CURRENT PLAN OF CARE - Plan Plan: will downgrade Nutritional Asmnt/Malnutr-PDOC - Dietary Evaluation Malnutrition Findings (Please click <Entered> for more info): Nutritional Asmnt/Malnutrition Start: 11/04/17 15: 25 Text: Status: Complete Freq: Document 11/04/17 15:25 LEAH (Rec: 11/04/17 16:09 LEAH ANDREYFN) Nutritional Asmnt/Malnutrition Patient General Information Nutritional Screening High Risk Diagnosis PNA, acute respiratory failure Pertinent Medical Hx/Surgical Hx HTN, moderate intellectual disability, psychosis, anoxic encephalopathy, s/p aspiration PNA, gastrostomy, impulse control disorder, insommnia, gastritis, bipolar, pseudobulbar affect, sholelithiasis, cell carcinoma , PEG/G tube Subjective Information Pt seen resting in bed at time of visit, on bipap. Spoke with RN, pt had coffee groud vomiting x 5, on NGT suction, still on NPO. Current Diet Order/ Nutrition Support NPO Pertinent Medications vitamin C, tums, omega 3, culturelle, glagyl, bactroban, pantoprazole, miralax, kcal, seroquel, vitamin D Pertinent Labs 11/04 Na 134, K 3.2, Cl 97, BUN 34, Cr 0.7, Glucose 202, A1c 6.3 11/03 POC 130 Nutritional Hx/Data Height 1.65 m Height (Calculated Centimeters) 165.1 Current Weight (lbs) 76.204 kg Weight (Calculated Kilograms) 76.2 Weight (Calculated Grams) 57421.5 [place] Body Weight 136 % [place] Body Weight 124 Body Mass Index (BMI) 27.9 Weight Status Overweight GI Symptoms GI Symptoms Vomitting Last BM none Skin Integrity/Comment: g tube site redness, presure area to scrotum and sacrum Estimated Nutritional Goals BEE in Kcals: Using Current wt Calories/Kcals/Kg 25-30 Kcals Calculated 2976-8581 Protein: Using Current wt Protein g/k-1.2 Protein Calculated 76-91 Fluid: ml 1900-2280ml (1ml/kcal) Nutritional Problem 1. Problem Problem inadequate energy intake Etiology pt having episodes of vomiting Signs/Symptoms: pt on NPO and nutrition support not initiated Intervention/Recommendation Comments 1. Monitor NPO status. 2. When GI function improved and medically appropriate, will consider initiate enteral feeding at low rate. Recommend start Nutren Pulmonary at 15ml/hr continuous, increase 10ml/hr q6hr as tolerated to goal rate of 55. This will provide 1980kcal, 90g protein and 1032ml free water, meeting 100 % of nutritional needs. 3. Monitor GI function, wt, labs and skin integrity 4. F/U as high risk in 2-3 days, 11/06-11/07 Expected Outcomes/Goals Expected Outcomes/Goals 1. Pt to meet at least 75% of nutritional needs. 2. Wt stability, skin to remain intact, GI function improved, labs to approach WNL .
[2017-11-08] MEDS: methylPREDNISolone SS 40 mg Vial IVP SCH ×3 (04:33→23:27)
[2017-11-08] MEDS: metroNIDAZOLE 500mg/NS 100mL 500 MG/100 ML BAG IV SCH (04:33)
[2017-11-08 04:44] LABS: HEMATOCRIT 39.6 % (41.0-60); HEMOGLOBIN 13.4 gm/dL (12-16); MEAN CELL VOLUME 92.4 fl (80-99); MEAN CORPUSCULAR HEMOGLOBIN 31.3 pg (26.0-30.0); MEAN CORPUSCULAR HGB CONC 33.8 pg (28.0-36.0); MEAN PLATELET VOLUME 10.3 fl; PLATELET COUNT 231 Th/cmm (150-400); RED BLOOD COUNT 4.28 Mil/cmm (4.30-5.70); RED CELL DISTRIBUTION WIDTH 13.4 % (11.5-20.0)
[2017-11-08 05:00] LABS: ANION GAP 9.7 (7.0-16.0); BUN - UREA NITROGEN 56 mg/dL (7-25); CALCIUM SERUM 8.9 mg/dL (8.6-10.3); CARBON DIOXIDE 34.3 mEq/L (21.0-31.0); CHLORIDE 106 mEq/L (98-107); CREATININE - SERUM 0.6 mg/dL (0.7-1.3); GFR AFRICAN-AMERICAN > 60.0 ml/min (>90); GFR NON AFRICAN-AMERICAN > 60.0 ml/min; GLUCOSE 192 mg/dL (70-105); SODIUM SERUM 146 mEq/L (136-145); WHITE BLOOD COUNT 10.7 Th/cmm (4.8-10.8)
[2017-11-08 05:17] LABS: BAND NEUTROPHILE 2 % (0-10); EOSINOPHIL 2 % (0-5); LYMPHOCYTE 22 % (20-50); MONOCYTE 10 % (2-10); NEUTROPHILS 64 % (40-80); PLATELET ESTIMATE ADEQUATE (NORMAL); TOTAL CELLS COUNTED 100
[2017-11-08] MEDS: Albuterol Nebulizer 2.5mg/3mL IH SCH ×4 (08:47→22:01)
[2017-11-08] MEDS: Ipratropium Neb 0.5 mg/2.5 mL UD IH SCH ×4 (08:47→22:01)
[2017-11-08] MEDS: Fish Oil 1,000 MG SGL PO SCH (09:26)
[2017-11-08] MEDS: POLYETHYLENE GLYCOL 3350 17 GM PACK GT SCH (09:26)
[2017-11-08] MEDS: Lactobacillus Rhamnosus GG 15 Billion CFU CAP.SPRINK PO SCH (09:26)
[2017-11-08] MEDS: Dextromethorphan/Quinidine 20mg/10mg Cap GT SCH ×2 (09:27→18:08)
[2017-11-08] MEDS: Multivitamin w/ Minerals Tab GT SCH (09:27)
--- NOTE | 2017-11-08 09:43 | Diagnostic Imaging Report ---
Portable chest x-ray HISTORY: Shortness of breath Compared with prior exam of November 07, 2017, there is a poor inspiration. There remains questionable faint infiltrate within the left lower lobe. Evidence of minimal right pleural effusion. IMPRESSION: 1. Poor inspiration with questionable faint infiltrate within the left lower lobe. Follow-up recommended. 2. Evidence of minimal right pleural effusion
--- NOTE | 2017-11-08 13:33 | Internal Medicine Prog Note ---
Internal Medicine Subjective - Subjective Patient seen and examined:: with staff, chart reviewed Patient is:: awake, verbal, interactive, confused Patient Complaints of:: vomitting Per staff patient has:: no adverse event, no episodes of fall, agitated, tolerating meds Internal Medicine Objective - Results Result Diagrams: 11/08/17 04:30 11/08/17 04:30 Recent Labs: Laboratory Last Values WBC 10.7 Th/cmm (4.8-10.8) D 11/08/17 04:30 RBC 4.28 Mil/cmm (4.30-5.70) L 11/08/17 04:30 Hgb 13.4 gm/dL (12-16) 11/08/17 04:30 Hct 39.6 % (41.0-60) L 11/08/17 04:30 MCV 92.4 fl (80-99) 11/08/17 04:30 MCH 31.3 pg (26.0-30.0) H 11/08/17 04:30 MCHC Differential 33.8 pg (28.0-36.0) 11/08/17 04:30 RDW 13.4 % (11.5-20.0) 11/08/17 04:30 Plt Count 231 Th/cmm (150-400) 11/08/17 04:30 MPV 10.3 fl 11/08/17 04:30 Neutrophils % JAPANESE INTERPRETER 11/06/17 04:30 Band Neutrophils % 2 % (0-10) 11/08/17 04:30 Lymphocytes % JAPANESE INTERPRETER 11/06/17 04:30 Monocytes % JAP[employer]ESE INTERPRETER 11/06/17 04:30 Eosinophils % JAPANESE INTERPRETER 11/06/17 04:30 Basophils % JAPANESE INTERPRETER 11/06/17 04:30 Neutrophils (Manual) 64 % (40-80) 11/08/17 04:30 Lymphocytes 22 % (20-50) 11/08/17 04:30 Monocytes 10 % (2-10) 11/08/17 04:30 Eosinophils 2 % (0-5) 11/08/17 04:30 Basophils 1 % (0-3) 11/06/17 04:30 Hypochromia 1+ 11/06/17 04:30 Platelet Estimate ADEQUATE (NORMAL) 11/08/17 04:30 Platelet Morphology NORMAL (NORMAL) 11/04/17 16:14 RBC Morph Micro Appear NORMAL (NORMAL) 11/04/17 16:14 PT 11.2 SECONDS (9.5-11.5) 11/03/17 10:00 INR 1.08 (0.5-1.4) 11/03/17 10:00 PTT (Actin FS) 25.4 SECONDS (26.0-38.0) L 11/03/17 10:00 D-Dimer 1570 ng/mL (100-400) H 11/03/17 10:00 Specimen Source Arterial 11/06/17 09:00 Sample Site Right Radial 11/06/17 09:00 pH 7.49 (7.35-7.45) H 11/06/17 09:00 pCO2 45.0 mmHg (35.0-45.0) 11/06/17 09:00 pO2 66.0 mmHg (80.0-100.0) L 11/06/17 09:00 HCO3 32.4 mEq/L (20.0-26.0) H 11/06/17 09:00 Base Excess 9.7 mEq/L (-3.0-3.0) H 11/06/17 09:00 O2 Saturation 94.0 % (92.0-100.0) 11/06/17 09:00 Alex Test YES 11/06/17 09:00 Vent Rate 14 11/06/17 09:00 Inspired O2 50 11/06/17 09:00 Tidal Volume 500 11/06/17 09:00 PEEP 8 11/06/17 09:00 Pressure (ins/psv/peep) 10 11/06/17 09:00 Critical Value SH 11/06/17 09:00 Sodium 146 mEq/L (136-145) H 11/08/17 04:30 Potassium 4.0 mEq/L (3.5-5.1) 11/08/17 04:30 Chloride 106 mEq/L (98-107) 11/08/17 04:30 Carbon Dioxide 34.3 mEq/L (21.0-31.0) H 11/08/17 04:30 Anion Gap 9.7 (7.0-16.0) 11/08/17 04:30 BUN 56 mg/dL (7-25) H 11/08/17 04:30 Creatinine 0.6 mg/dL (0.7-1.3) L 11/08/17 04:30 Est GFR ( Amer) > 60.0 ml/min (>90) 11/08/17 04:30 Est GFR (Non-Af Amer) > 60.0 ml/min 11/08/17 04:30 BUN/Creatinine Ratio 93.3 11/08/17 04:30 Glucose 192 mg/dL (70-105) H 11/08/17 04:30 POC Glucose 130 MG/DL (70 - 105) H 11/03/17 09:52 Hemoglobin A1c % 6.3 % (4.0-6.0) H 11/04/17 06:10 Calcium 8.9 mg/dL (8.6-10.3) 11/08/17 04:30 Total Bilirubin 0.7 mg/dL (0.3-1.0) 11/05/17 04:30 AST 17 U/L (13-39) 11/05/17 04:30 ALT 8 U/L (7-52) 11/05/17 04:30 Alkaline Phosphatase 57 U/L (34-104) 11/05/17 04:30 Ammonia 37 umol/L (16-53) 11/08/17 04:30 B-Natriuretic Peptide 28.6 pg/mL (5.0-100.0) 11/03/17 10:00 Total Protein 6.5 gm/dL (6.0-8.3) 11/05/17 04:30 Albumin 3.2 gm/dL (4.2-5.5) L 11/05/17 04:30 Globulin 3.3 gm/dL 11/05/17 04:30 Albumin/Globulin Ratio 1.0 (1.0-1.8) 11/05/17 04:30 Lipase 7 U/L (11-82) L 11/03/17 10:00 Urine Source CATH 11/03/17 14:10 Urine Color YELLOW 11/03/17 14:10 Urine Clarity CLEAR (CLEAR) 11/03/17 14:10 Urine pH 8.0 (4.6 - 8.0) 11/03/17 14:10 Ur Specific [place] 1.010 (1.005-1.030) 11/03/17 14:10 Urine Protein NEGATIVE mg/dL (NEGATIVE) 11/03/17 14:10 Urine Glucose (UA) NEGATIVE mg/dL (NEGATIVE) 11/03/17 14:10 Urine Ketones NEGATIVE mg/dL (NEGATIVE) 11/03/17 14:10 Urine Blood NEGATIVE (NEGATIVE) 11/03/17 14:10 Urine Nitrate NEGATIVE (NEGATIVE) 11/03/17 14:10 Urine Bilirubin NEGATIVE (NEGATIVE) 11/03/17 14:10 Urine Urobilinogen 1.0 E.U./dL (0.2 - 1.0) 11/03/17 14:10 Ur Leukocyte Esterase NEGATIVE (NEGATIVE) 11/03/17 14:10 Urine RBC NONE SEEN /hpf (0-5) 11/03/17 14:10 Urine WBC NONE SEEN /hpf (0-5) 11/03/17 14:10 Ur Epithelial Cells NONE SEEN /lpf (FEW) 11/03/17 14:10 Urine Bacteria NONE SEEN /hpf (NONE SEEN) 11/03/17 14:10 Influenza A (Rapid) NEG FOR INF A 11/03/17 15:00 Influenza B (Rapid) NEG FOR INF B 11/03/17 15:00 - Physical Exam Vitals and I&O: Vital Signs Temp 97.7 F 11/08/17 08:04 Pulse 84 11/08/17 13:21 Resp 20 11/08/17 13:21 BP 119/74 11/08/17 08:04 Pulse Ox 93 11/08/17 13:21 Intake & Output 11/07/17 11/08/17 11/08/17 18:59 06:59 18:59 Intake Total 820 830 Output Total 450 400 Balance 370 430 Weight (lbs) 75.41 kg 74.843 kg 78.471 kg Intake: Intake, IV Amount 150 150 Cefepime 1 gm In Dextrose 50 50 5% 50 ml @ 100 mls/hr IV Q12H JESUS MANUEL Rx#:[id number] metroNIDAZOLE 500mg/NS 100 100 100mL 500 mg In 100 ml @ 100 mls/hr IV Q8HR JESUS MANUEL Rx #:[id number] Tube Feeding 320 480 Other 350 200 Output: Urine 450 400 Other: # Bowel Movements 1 1 Active Medications: Current Medications Acetaminophen (Tylenol 650mg/20.3ml Suspension) 650 mg GT Q4H PRN PRN Reason: PAIN OR TEMP >100 Stop: 01/02/18 13:11 Last Admin: 11/03/17 23:40 Dose: 650 mg Acetaminophen (Tylenol) 650 mg PO Q4HR PRN PRN Reason: Pain Or Fever above 101 Stop: 01/02/18 13:20 Al Hydrox/Mg Hydrox/Simethicone (Maalox) 30 ml PO Q6HR PRN PRN Reason: Dyspepsia Stop: 01/02/18 13:20 Albuterol Sulfate (Albuterol 2.5mg/3ml Neb Ud) 2.5 mg HHN Q4HRT PRN PRN Reason: Congestion Stop: 01/02/18 13:11 Last Admin: 11/03/17 22:14 Dose: 2.5 mg Albuterol Sulfate (Albuterol 2.5mg/3ml Neb Ud) 2.5 mg IH QID JESUS MANUEL Stop: 01/02/18 16:59 Last Admin: 11/08/17 13:07 Dose: 2.5 mg Ascorbic Acid (Vitamin C) 500 mg GT BID [facility] Stop: 01/02/18 16:59 Last Admin: 11/08/17 09:26 Dose: 500 mg Bisacodyl (Dulcolax 10 Mg Supp) 10 mg RC DAILY PRN PRN Reason: IF MOM INEFFECTIVE Stop: 01/02/18 13:11 Last Admin: 11/06/17 08:14 Dose: 10 mg Calcium Carbonate (Tums) 1,250 mg GT DAILY [facility] Stop: 01/03/18 08:59 Last Admin: 11/08/17 09:26 Dose: 1,250 mg Dextromethorphan/Quinidine (Nuedexta 20mg-10mg) 1 cap GT BID JESUS MANUEL Stop: 01/02/18 16:59 Last Admin: 11/08/17 09:27 Dose: 1 cap Fish Oil ([place] 3) 1,000 mg PO DAILY JESUS MANUEL Stop: 01/03/18 08:59 Last Admin: 11/08/17 09:26 Dose: 1,000 mg Guaifenesin (Robitussin) 100 mg PO Q4H PRN PRN Reason: Cough or Congestion Stop: 01/02/18 13:20 Piperacillin Sod/Tazobactam (Sod 4.5 gm/ Sodium Chloride) 100 mls @ 100 mls/hr IV Q8HR JESUS MANUEL Stop: 01/07/18 20:59 Sodium Chloride (Nacl 0.45%) 1,000 mls @ 50 mls/hr IV .Q20H [facility] Stop: 01/07/18 13:44 Ipratropium [place] (Atrovent Neb 0.5mg/2.5ml) 0.5 mg HHN Q4HRT PRN PRN Reason: Congestion Stop: 01/02/18 13:11 Last Admin: 11/03/17 22:14 Dose: 0.5 mg Ipratropium [place] (Atrovent Neb 0.5mg/2.5ml) 0.5 mg IH QID JESUS MANUEL Stop: 01/02/18 16:59 Last Admin: 11/08/17 13:07 Dose: 0.5 mg Lactobacillus Rhamnosus (Culturelle 15b) 1 each PO DAILY JES[facility] MANUEL Stop: 01/03/18 08:59 Last Admin: 11/08/17 09:26 Dose: 1 each Magnesium Hydroxide (Milk Of Magnesia) 30 ml GT Q72H PRN PRN Reason: NO BM (CONSTIPATION) Stop: 01/02/18 13:11 Last Admin: 11/05/17 21:43 Dose: 30 ml Methylprednisolone Sodium Succinate (Solu-Medrol) 40 mg IVP Q8HR JESUS MANUEL Stop: 01/02/18 20:59 Miscellaneous (Calcium Carb/Magnesium Hydrox [Mi-Acid Ds Tablet]) 1 each GT QID JESUS MANUEL Stop: 01/02/18 16:59 Miscellaneous (Vte Chemical Prophylaxis Screen/ Admission) 1 ea MC PRN PRN PRN Reason: PROTOCOL Stop: 01/02/18 16:14 Miscellaneous (Probiotic Screen) 1 ea MC PRN PRN PRN Reason: PROTOCOL Stop: 01/03/18 10:44 Mupirocin (Bactroban Oint) 1 appl NS BID JESUS MANUEL Stop: 11/09/17 09:01 Last Admin: 11/08/17 09:28 Dose: 1 appl Ondansetron HCl (Zofran) 4 mg IV Q8H PRN PRN Reason: Nausea / Vomiting Stop: 01/02/18 13:20 Pantoprazole Sodium (Protonix) 40 mg IVP BID [facility] Stop: 01/05/18 08:59 Last Admin: 11/08/17 09:27 Dose: 40 mg Polyethylene Glycol (Miralax) 17 gm GT DAILY JESUS MANUEL Stop: 01/03/18 08:59 Last Admin: 11/08/17 09:26 Dose: 17 gm Quetiapine Fumarate (Seroquel) 300 mg PO HS JESUS MANUEL PRN Reason: Protocol Stop: 01/02/18 20:59 Last Admin: 11/07/17 21:29 Dose: 300 mg Quetiapine Fumarate (Seroquel) 200 mg GT QAM JESUS MANUEL PRN Reason: Protocol Stop: 01/03/18 08:59 Last Admin: 11/07/17 09:28 Dose: 200 mg Sodium Phosphate (Fleet Enema) 135 ml RC PRN PRN PRN Reason: IF DULCOLAX INEFFECTIVE Stop: 01/02/18 13:11 Last Admin: 11/06/17 17:13 Dose: 135 ml Trazodone HCl (Desyrel) 25 mg GT HS JESUS MANUEL PRN Reason: Protocol Stop: 01/02/18 20:59 Last Admin: 11/07/17 21:28 Dose: 25 mg Valproate Sodium (Depakene) 625 mg GT DAILY JESUS MANUEL PRN Reason: Protocol Stop: 01/03/18 08:59 Last Admin: 11/08/17 09:27 Dose: 625 mg Valproate Sodium (Depakene) 750 mg GT HS JESUS MANUEL PRN Reason: Protocol Stop: 01/02/18 20:59 Last Admin: 11/07/17 21:28 Dose: 750 mg Vitamin D (Vitamin D) 400 iu PO QPM JESUS MANUEL Stop: 01/02/18 16:59 Last Admin: 11/07/17 17:45 Dose: 400 iu General: weak, demented HEENT: NC/AT, PERRLA Lungs: congested, rales, ronchi Cardiovascular: Normal S1, Normal S2 Abdomen: distended Extremities: excoriation, deformity Neurological: no change, unable to follow command - Procedures Procedures: Procedures Procedure Code Date CHANGE FEEDING DEVICE IN UP INTEST TRACT, CUSTOMER SUCCESS ASSOCIATE APPROACH [id number] 09/11/17 CHANGE GASTROSTOMY TUBE 51364 07/06/17 EGD BIOPSY SINGLE/MULTIPLE 66726 09/11/[address] GASTROSTOMY TUBE 31541 02/16/09 EXCISION OF STOMACH, ENDO, DIAGN [id number] 09/11/17 INSERT EMERGENCY AIRWAY 35361 12/21/16 INSERTION OF ENDOTRACHEAL AIRWAY INTO TRACHEA, VIA OPENING [id number] 12/21/16 INSERTION OF INFUSION DEVICE INTO R ATRIUM, PERC APPROACH [id number] 03/07/17 OTHER ENDOSCOPY OF SM INTEST 45.13 02/16/09 REPLACE GASTROSTOMY TUBE 97.02 02/16/09 RESPIRATORY VENTILATION, GREATER THAN 96 CONSECUTIVE HOURS [id number] 12/21/16 VENT MGMT INPAT INIT DAY 12/21/16 VENT MGMT INPAT SUBQ 12/21/16 Internal Medicine Assmt/Plan - Assessment Assessment: - Assessment Assessment: uti HYPOXIC RESPIRATORY DISTRESS PNA ELEVATED DDIMER MRSA NARES GI BLEED ACUTE RENAL INSUFFICIENCY MILD PROTEIN CALORIE MALNUTRITION SEVERE INTELLECTUAL DISABILITY HTN DYSPHAGIA IMPLUSE CONTROL DISORDER INSOMNIA GASTRITIS BIPOLAR DISORDER PSEUDOBULAR AFFECT - Plan Plan: CONTINUE PROTONIX DRIP MONITOR H/H FOLLOW UP LABS IN AM CONTINUE WITH BIPAP CONTINUE CURRENT PLAN OF CARE - Plan Plan: will downgrade Nutritional Asmnt/Malnutr-PDOC - Dietary Evaluation Malnutrition Findings (Please click <Entered> for more info): Nutritional Asmnt/Malnutrition Start: 11/04/17 15: 25 Text: Status: Complete Freq: Document 11/04/17 15:25 LEAH (Rec: 11/04/17 16:09 [email or web address] [email or web address]) Nutritional Asmnt/Malnutrition Patient General Information Nutritional Screening High Risk Diagnosis PNA, acute respiratory failure Pertinent Medical Hx/Surgical Hx HTN, moderate intellectual disability, psychosis, anoxic encephalopathy, s/p aspiration PNA, gastrostomy, impulse control disorder, insommnia, gastritis, bipolar, pseudobulbar affect, sholelithiasis, cell carcinoma , PEG/G tube Subjective Information Pt seen resting in bed at time of visit, on bipap. Spoke with RN, pt had coffee groud vomiting x 5, on NGT suction, still on NPO. Current Diet Order/ Nutrition Support NPO Pertinent Medications vitamin C, tums, omega 3, culturelle, glagyl, bactroban, pantoprazole, miralax, kcal, seroquel, vitamin D Pertinent Labs 11/04 Na 134, K 3.2, Cl 97, BUN 34, Cr 0.7, Glucose 202, A1c 6.3 11/03 POC 130 Nutritional Hx/Data Height 1.65 m Height (Calculated Centimeters) 165.1 Current Weight (lbs) 76.204 kg Weight (Calculated Kilograms) 76.2 Weight (Calculated Grams) 46847.5 [place] Body Weight 136 % [place] Body Weight 124 Body Mass Index (BMI) 27.9 Weight Status Overweight GI Symptoms GI Symptoms Vomitting Last BM none Skin Integrity/Comment: g tube site redness, presure area to scrotum and sacrum Estimated Nutritional Goals BEE in Kcals: Using Current wt Calories/Kcals/Kg 25-30 Kcals Calculated 1645-9461 Protein: Using Current wt Protein g/k-1.2 Protein Calculated 76-91 Fluid: ml 1900-2280ml (1ml/kcal) Nutritional Problem 1. Problem Problem inadequate energy intake Etiology pt having episodes of vomiting Signs/Symptoms: pt on NPO and nutrition support not initiated Intervention/Recommendation Comments 1. Monitor NPO status. 2. When GI function improved and medically appropriate, will consider initiate enteral feeding at low rate. Recommend start Nutren Pulmonary at 15ml/hr continuous, increase 10ml/hr q6hr as tolerated to goal rate of 55. This will provide 1980kcal, 90g protein and 1032ml free water, meeting 100 % of nutritional needs. 3. Monitor GI function, wt, labs and skin integrity 4. F/U as high risk in 2-3 days, 11/06-11/07 Expected Outcomes/Goals Expected Outcomes/Goals 1. Pt to meet at least 75% of nutritional needs. 2. Wt stability, skin to remain intact, GI function improved, labs to approach WNL .
[2017-11-08] MEDS ORDERED: Sodium Chloride 0.45% 1,000 ML IV SCH (13:45)
[2017-11-09] MEDS: Albuterol Nebulizer 2.5mg/3mL IH SCH ×3 (07:06→11:07)
[2017-11-09] MEDS: Ipratropium Neb 0.5 mg/2.5 mL UD IH SCH ×3 (07:06→11:08)
[2017-11-09] MEDS: methylPREDNISolone SS 40 mg Vial IVP SCH (07:40)
--- NOTE | 2017-11-09 08:30 | GI Progress Note ---
Subjective - Review of Systems Service Date: 11/09/17 Subjective: No complaints, off BiPAP Objective - Results Result Diagrams: 11/08/17 04:30 11/08/17 04:30 Recent Labs: Laboratory Last Values WBC 10.7 Th/cmm (4.8-10.8) D 11/08/17 04:30 RBC 4.28 Mil/cmm (4.30-5.70) L 11/08/17 04:30 Hgb 13.4 gm/dL (12-16) 11/08/17 04:30 Hct 39.6 % (41.0-60) L 11/08/17 04:30 MCV 92.4 fl (80-99) 11/08/17 04:30 MCH 31.3 pg (26.0-30.0) H 11/08/17 04:30 MCHC Differential 33.8 pg (28.0-36.0) 11/08/17 04:30 RDW 13.4 % (11.5-20.0) 11/08/17 04:30 Plt Count 231 Th/cmm (150-400) 11/08/17 04:30 MPV 10.3 fl 11/08/17 04:30 Neutrophils % RO[employer]INE[employer] 11/06/17 04:30 Band Neutrophils % 2 % (0-10) 11/08/17 04:30 Lymphocytes % RO[employer] 11/06/17 04:30 Monocytes % RO[employer] ENGINEER 11/06/17 04:30 Eosinophils % RO[employer]INEER 11/06/17 04:30 Basophils % RO[employer] ENGINEER 11/06/17 04:30 Neutrophils (Manual) 64 % (40-80) 11/08/17 04:30 Lymphocytes 22 % (20-50) 11/08/17 04:30 Monocytes 10 % (2-10) 11/08/17 04:30 Eosinophils 2 % (0-5) 11/08/17 04:30 Basophils 1 % (0-3) 11/06/17 04:30 Hypochromia 1+ 11/06/17 04:30 Platelet Estimate ADEQUATE (NORMAL) 11/08/17 04:30 Platelet Morphology NORMAL (NORMAL) 11/04/17 16:14 RBC Morph Micro Appear NORMAL (NORMAL) 11/04/17 16:14 PT 11.2 SECONDS (9.5-11.5) 11/03/17 10:00 INR 1.08 (0.5-1.4) 11/03/17 10:00 PTT (Actin FS) 25.4 SECONDS (26.0-38.0) L 11/03/17 10:00 D-Dimer 1570 ng/mL (100-400) H 11/03/17 10:00 Specimen Source Arterial 11/06/17 09:00 Sample Site Right Radial 11/06/17 09:00 pH 7.49 (7.35-7.45) H 11/06/17 09:00 pCO2 45.0 mmHg (35.0-45.0) 11/06/17 09:00 pO2 66.0 mmHg (80.0-100.0) L 11/06/17 09:00 HCO3 32.4 mEq/L (20.0-26.0) H 11/06/17 09:00 Base Excess 9.7 mEq/L (-3.0-3.0) H 11/06/17 09:00 O2 Saturation 94.0 % (92.0-100.0) 11/06/17 09:00 Alex Test YES 11/06/17 09:00 Vent Rate 14 11/06/17 09:00 Inspired O2 50 11/06/17 09:00 Tidal Volume 500 11/06/17 09:00 PEEP 8 11/06/17 09:00 Pressure (ins/psv/peep) 10 11/06/17 09:00 Critical Value SH 11/06/17 09:00 Sodium 146 mEq/L (136-145) H 11/08/17 04:30 Potassium 4.0 mEq/L (3.5-5.1) 11/08/17 04:30 Chloride 106 mEq/L (98-107) 11/08/17 04:30 Carbon Dioxide 34.3 mEq/L (21.0-31.0) H 11/08/17 04:30 Anion Gap 9.7 (7.0-16.0) 11/08/17 04:30 BUN 56 mg/dL (7-25) H 11/08/17 04:30 Creatinine 0.6 mg/dL (0.7-1.3) L 11/08/17 04:30 Est GFR ( Amer) > 60.0 ml/min (>90) 11/08/17 04:30 Est GFR (Non-Af Amer) > 60.0 ml/min 11/08/17 04:30 BUN/Creatinine Ratio 93.3 11/08/17 04:30 Glucose 192 mg/dL (70-105) H 11/08/17 04:30 POC Glucose 130 MG/DL (70 - 105) H 11/03/17 09:52 Hemoglobin A1c % 6.3 % (4.0-6.0) H 11/04/17 06:10 Calcium 8.9 mg/dL (8.6-10.3) 11/08/17 04:30 Total Bilirubin 0.7 mg/dL (0.3-1.0) 11/05/17 04:30 AST 17 U/L (13-39) 11/05/17 04:30 ALT 8 U/L (7-52) 11/05/17 04:30 Alkaline Phosphatase 57 U/L (34-104) 11/05/17 04:30 Ammonia 37 umol/L (16-53) 11/08/17 04:30 B-Natriuretic Peptide 28.6 pg/mL (5.0-100.0) 11/03/17 10:00 Total Protein 6.5 gm/dL (6.0-8.3) 11/05/17 04:30 Albumin 3.2 gm/dL (4.2-5.5) L 11/05/17 04:30 Globulin 3.3 gm/dL 11/05/17 04:30 Albumin/Globulin Ratio 1.0 (1.0-1.8) 11/05/17 04:30 Lipase 7 U/L (11-82) L 11/03/17 10:00 Urine Source CATH 11/03/17 14:10 Urine Color YELLOW 11/03/17 14:10 Urine Clarity CLEAR (CLEAR) 11/03/17 14:10 Urine pH 8.0 (4.6 - 8.0) 11/03/17 14:10 Ur Specific [place] 1.010 (1.005-1.030) 11/03/17 14:10 Urine Protein NEGATIVE mg/dL (NEGATIVE) 11/03/17 14:10 Urine Glucose (UA) NEGATIVE mg/dL (NEGATIVE) 11/03/17 14:10 Urine Ketones NEGATIVE mg/dL (NEGATIVE) 11/03/17 14:10 Urine Blood NEGATIVE (NEGATIVE) 11/03/17 14:10 Urine Nitrate NEGATIVE (NEGATIVE) 11/03/17 14:10 Urine Bilirubin NEGATIVE (NEGATIVE) 11/03/17 14:10 Urine Urobilinogen 1.0 E.U./dL (0.2 - 1.0) 11/03/17 14:10 Ur Leukocyte Esterase NEGATIVE (NEGATIVE) 11/03/17 14:10 Urine RBC NONE SEEN /hpf (0-5) 11/03/17 14:10 Urine WBC NONE SEEN /hpf (0-5) 11/03/17 14:10 Ur Epithelial Cells NONE SEEN /lpf (FEW) 11/03/17 14:10 Urine Bacteria NONE SEEN /hpf (NONE SEEN) 11/03/17 14:10 Influenza A (Rapid) NEG FOR INF A 11/03/17 15:00 Influenza B (Rapid) NEG FOR INF B 11/03/17 15:00 - Physical Exam Vitals and I&O: Vital Signs Temp 96.7 F 11/09/17 08:22 Pulse 84 11/09/17 08:22 Resp 17 11/09/17 08:22 BP 123/78 11/09/17 08:22 Pulse Ox 94 11/09/17 07:06 Intake & Output 11/08/17 11/09/17 11/09/17 18:59 06:59 18:59 Intake Total 100 Output Total 300 Balance 100 -300 Weight (lbs) 78.471 kg 74.933 kg Intake: Intake, IV Amount 100 Piperacillin Sodium/ 100 Tazobact 4.5 gm In Sodium Chloride 0.9% 100 ml @ 100 mls/hr IV Q8H [facility] Rx# :[id number] Output: Urine 300 Other: # Bowel Movements 1 Active Medications: Current Medications Acetaminophen (Tylenol 650mg/20.3ml Suspension) 650 mg GT Q4H PRN PRN Reason: PAIN OR TEMP >100 Stop: 01/02/18 13:11 Last Admin: 11/03/17 23:40 Dose: 650 mg Acetaminophen (Tylenol) 650 mg PO Q4HR PRN PRN Reason: Pain Or Fever above 101 Stop: 01/02/18 13:20 Al Hydrox/Mg Hydrox/Simethicone (Maalox) 30 ml PO Q6HR PRN PRN Reason: Dyspepsia Stop: 01/02/18 13:20 Albuterol Sulfate (Albuterol 2.5mg/3ml Neb Ud) 2.5 mg HHN Q4HRT PRN PRN Reason: Congestion Stop: 01/02/18 13:11 Last Admin: 11/03/17 22:14 Dose: 2.5 mg Albuterol Sulfate (Albuterol 2.5mg/3ml Neb Ud) 2.5 mg IH QID J[facility]UEL Stop: 01/02/18 16:59 Last Admin: 11/09/17 07:06 Dose: 2.5 mg Ascorbic Acid (Vitamin C) 500 mg GT BID JES[facility] MANUEL Stop: 01/02/18 16:59 Last Admin: 11/08/17 18:08 Dose: 500 mg Bisacodyl (Dulcolax 10 Mg Supp) 10 mg RC DAILY PRN PRN Reason: IF MOM INEFFECTIVE Stop: 01/02/18 13:11 Last Admin: 11/06/17 08:14 Dose: 10 mg Calcium Carbonate (Tums) 1,250 mg GT DAILY JESUS MANUEL Stop: 01/03/18 08:59 Last Admin: 11/08/17 09:26 Dose: 1,250 mg Dextromethorphan/Quinidine (Nuedexta 20mg-10mg) 1 cap GT BID JES[facility] MANUEL Stop: 01/02/18 16:59 Last Admin: 11/08/17 18:08 Dose: 1 cap Fish Oil (Slemp 3) 1,000 mg PO DAILY JESUS MANUEL Stop: 01/03/18 08:59 Last Admin: 11/08/17 09:26 Dose: 1,000 mg Guaifenesin (Robitussin) 100 mg PO Q4H PRN PRN Reason: Cough or Congestion Stop: 01/02/18 13:20 Piperacillin Sod/Tazobactam (Sod 4.5 gm/ Sodium Chloride) 100 mls @ 100 mls/hr IV Q8H [facility] Stop: 01/07/18 15:59 Last Admin: 11/08/17 23:27 Dose: 100 mls/hr Sodium Chloride (Nacl 0.45%) 1,000 mls @ 50 mls/hr IV .Q20H [facility] Stop: 01/07/18 13:44 Last Admin: 11/08/17 18:03 Dose: 50 mls/hr Ipratropium [place] (Atrovent Neb 0.5mg/2.5ml) 0.5 mg HHN Q4HRT PRN PRN Reason: Congestion Stop: 01/02/18 13:11 Last Admin: 11/03/17 22:14 Dose: 0.5 mg Ipratropium [place] (Atrovent Neb 0.5mg/2.5ml) 0.5 mg IH QID [facility] Stop: 01/02/18 16:59 Last Admin: 11/09/17 07:06 Dose: 0.5 mg Lactobacillus Rhamnosus (Culturelle 15b) 1 each PO DAILY JES[facility] MANUEL Stop: 01/03/18 08:59 Last Admin: 11/08/17 09:26 Dose: 1 each Magnesium Hydroxide (Milk Of Magnesia) 30 ml GT Q72H PRN PRN Reason: NO BM (CONSTIPATION) Stop: 01/02/18 13:11 Last Admin: 11/05/17 21:43 Dose: 30 ml Methylprednisolone Sodium Succinate (Solu-Medrol) 40 mg IVP Q8H [facility] Stop: 01/07/18 14:59 Last Admin: 11/09/17 07:40 Dose: 40 mg Miscellaneous (Calcium Carb/Magnesium Hydrox [Mi-Acid Ds Tablet]) 1 each GT QID [facility] Stop: 01/02/18 16:59 Miscellaneous (Vte Chemical Prophylaxis Screen/ Admission) 1 ea MC PRN PRN PRN Reason: PROTOCOL Stop: 01/02/18 16:14 Miscellaneous (Probiotic Screen) 1 ea MC PRN PRN PRN Reason: PROTOCOL Stop: 01/03/18 10:44 Mupirocin (Bactroban Oint) 1 appl NS BID [facility] Stop: 11/09/17 09:01 Last Admin: 11/08/17 18:04 Dose: 1 appl Ondansetron HCl (Zofran) 4 mg IV Q8H PRN PRN Reason: Nausea / Vomiting Stop: 01/02/18 13:20 Pantoprazole Sodium (Protonix) 40 mg IVP BID [facility] Stop: 01/05/18 08:59 Last Admin: 11/08/17 18:08 Dose: 40 mg Polyethylene Glycol (Miralax) 17 gm GT DAILY JES[facility] MANUEL Stop: 01/03/18 08:59 Last Admin: 11/08/17 09:26 Dose: 17 gm Quetiapine Fumarate (Seroquel) 300 mg PO HS JESUS MANUEL PRN Reason: Protocol Stop: 01/02/18 20:59 Last Admin: 11/08/17 21:21 Dose: 300 mg Quetiapine Fumarate (Seroquel) 200 mg GT QAM JES[facility] MANUEL PRN Reason: Protocol Stop: 01/03/18 08:59 Last Admin: 11/08/17 18:05 Dose: 200 mg Sodium Phosphate (Fleet Enema) 135 ml RC PRN PRN PRN Reason: IF DULCOLAX INEFFECTIVE Stop: 01/02/18 13:11 Last Admin: 11/06/17 17:13 Dose: 135 ml Trazodone HCl (Desyrel) 25 mg GT HS JES[facility] MANUEL PRN Reason: Protocol Stop: 01/02/18 20:59 Last Admin: 11/08/17 21:21 Dose: 25 mg Valproate Sodium (Depakene) 625 mg GT DAILY JES[facility] MANUEL PRN Reason: Protocol Stop: 01/03/18 08:59 Last Admin: 11/08/17 09:27 Dose: 625 mg Valproate Sodium (Depakene) 750 mg GT HS JESUS MANUEL PRN Reason: Protocol Stop: 01/02/18 20:59 Last Admin: 11/08/17 21:21 Dose: 750 mg Vitamin D (Vitamin D) 400 iu PO QPM JES[facility] MANUEL Stop: 01/02/18 16:59 Last Admin: 11/08/17 18:08 Dose: 400 iu General: Alert HEENT: Atraumatic, PERRLA Neck: Supple Cardiovascular: Regular rate Abdomen: Bowel sounds, Soft, Obese, Other (non tender, no guard, no rebound,) - Procedures Procedures: Procedures Procedure Code Date CHANGE FEEDING DEVICE IN UP INTEST TRACT, NON LINEAR EDITOR APPROACH [id number] 09/11/17 CHANGE GASTROSTOMY TUBE 78976 07/06/17 EGD BIOPSY SINGLE/MULTIPLE 79286 09/11/[address] GASTROSTOMY TUBE 34109 02/16/09 EXCISION OF STOMACH, ENDO, DIAGN [id number] 09/11/17 INSERT EMERGENCY AIRWAY 29827 12/21/16 INSERTION OF ENDOTRACHEAL AIRWAY INTO TRACHEA, VIA OPENING [id number] 12/21/16 INSERTION OF INFUSION DEVICE INTO R ATRIUM, PERC APPROACH [id number] 12/21/16 OTHER ENDOSCOPY OF SM INTEST 45.13 02/16/09 REPLACE GASTROSTOMY TUBE 97.02 02/16/09 RESPIRATORY VENTILATION, GREATER THAN 96 CONSECUTIVE HOURS [id number] 12/21/16 VENT MGMT INPAT INIT DAY 12/21/16 VENT MGMT INPAT SUBQ DAY 12/21/16 Assessment/Plan - Problem List Patient Problems: All Active Problems COUGH AND CONGESTION (Acute) Cellulitis at gastrostomy tube site (Acute) K94.22 - Assessment Assessment: # Coffee ground emesis # Pneumonia with respiratory failure UGI bleed is likely, although seemingly not severe bleed as hgb has not rapidly dropped. Suspect cesar morrow tear, esophagitis, or gastritis rather than malignancy based on clinical scenario. EGD is indicated, although cannot be done safely with his respiratory status. We will have to wait until BiPAP requirement has come off or he is intubated. Pt off BiPAP 11/07 and appears much better. Likely can tolerate EGD at this point. Will start feeds on 11/06 given overall stability and remove NG tube Plan: - EGD tomorrow morning - cont PPI at bid dosing - cycle CBCs, transfuse to keep hgb > 8 - dc NG tube - Abx as per primary - miralax
[2017-11-09] MEDS: Multivitamin w/ Minerals Tab GT SCH (09:15)
[2017-11-09] MEDS: Lactobacillus Rhamnosus GG 15 Billion CFU CAP.SPRINK PO SCH (09:16)
[2017-11-09] MEDS: Dextromethorphan/Quinidine 20mg/10mg Cap GT SCH (09:16)
[2017-11-09] MEDS: POLYETHYLENE GLYCOL 3350 17 GM PACK GT SCH (09:51)
[2017-11-09] MEDS: Fish Oil 1,000 MG SGL PO SCH (09:51)
--- NOTE | 2017-11-09 13:32 | Internal Medicine Prog Note ---
Internal Medicine Subjective - Subjective Service Date: 11/09/17 (DC SUMMARY [id number]) Patient is:: awake, verbal, interactive, confused Patient Complaints of:: vomitting Per staff patient has:: no adverse event, no episodes of fall, agitated, tolerating meds Internal Medicine Objective - Results Result Diagrams: 11/08/17 04:30 11/08/17 04:30 Recent Labs: Laboratory Last Values WBC 10.7 Th/cmm (4.8-10.8) D 11/08/17 04:30 RBC 4.28 Mil/cmm (4.30-5.70) L 11/08/17 04:30 Hgb 13.4 gm/dL (12-16) 11/08/17 04:30 Hct 39.6 % (41.0-60) L 11/08/17 04:30 MCV 92.4 fl (80-99) 11/08/17 04:30 MCH 31.3 pg (26.0-30.0) H 11/08/17 04:30 MCHC Differential 33.8 pg (28.0-36.0) 11/08/17 04:30 RDW 13.4 % (11.5-20.0) 11/08/17 04:30 Plt Count 231 Th/cmm (150-400) 11/08/17 04:30 MPV 10.3 fl 11/08/17 04:30 Neutrophils % [employer] DEVELOPER 11/06/17 04:30 Band Neutrophils % 2 % (0-10) 11/08/17 04:30 Lymphocytes % [employer] DEVELOPER 11/06/17 04:30 Monocytes % [employer] DEVELOPER 11/06/17 04:30 Eosinophils % [employer] DEVELOPER 11/06/17 04:30 Basophils % [employer] DEVELOPER 11/06/17 04:30 Neutrophils (Manual) 64 % (40-80) 11/08/17 04:30 Lymphocytes 22 % (20-50) 11/08/17 04:30 Monocytes 10 % (2-10) 11/08/17 04:30 Eosinophils 2 % (0-5) 11/08/17 04:30 Basophils 1 % (0-3) 11/06/17 04:30 Hypochromia 1+ 11/06/17 04:30 Platelet Estimate ADEQUATE (NORMAL) 11/08/17 04:30 Platelet Morphology NORMAL (NORMAL) 01/19/18 16:14 RBC Morph Micro Appear NORMAL (NORMAL) 11/04/17 16:14 PT 11.2 SECONDS (9.5-11.5) 11/03/17 10:00 INR 1.08 (0.5-1.4) 11/03/17 10:00 PTT (Actin FS) 25.4 SECONDS (26.0-38.0) L 11/03/17 10:00 D-Dimer 1570 ng/mL (100-400) H 11/03/17 10:00 Specimen Source Arterial 11/06/17 09:00 Sample Site Right Radial 11/06/17 09:00 pH 7.49 (7.35-7.45) H 11/06/17 09:00 pCO2 45.0 mmHg (35.0-45.0) 11/06/17 09:00 pO2 66.0 mmHg (80.0-100.0) L 11/06/17 09:00 HCO3 32.4 mEq/L (20.0-26.0) H 11/06/17 09:00 Base Excess 9.7 mEq/L (-3.0-3.0) H 11/06/17 09:00 O2 Saturation 94.0 % (92.0-100.0) 11/06/17 09:00 Alex Test YES 11/06/17 09:00 Vent Rate 14 11/06/17 09:00 Inspired O2 50 11/06/17 09:00 Tidal Volume 500 11/06/17 09:00 PEEP 8 11/06/17 09:00 Pressure (ins/psv/peep) 10 11/06/17 09:00 Critical Value SH 11/06/17 09:00 Sodium 146 mEq/L (136-145) H 11/08/17 04:30 Potassium 4.0 mEq/L (3.5-5.1) 11/08/17 04:30 Chloride 106 mEq/L (98-107) 11/08/17 04:30 Carbon Dioxide 34.3 mEq/L (21.0-31.0) H 11/08/17 04:30 Anion Gap 9.7 (7.0-16.0) 11/08/17 04:30 BUN 56 mg/dL (7-25) H 11/08/17 04:30 Creatinine 0.6 mg/dL (0.7-1.3) L 11/08/17 04:30 Est GFR ( Amer) > 60.0 ml/min (>90) 11/08/17 04:30 Est GFR (Non-Af Amer) > 60.0 ml/min 11/08/17 04:30 BUN/Creatinine Ratio 93.3 11/08/17 04:30 Glucose 192 mg/dL (70-105) H 11/08/17 04:30 POC Glucose 130 MG/DL (70 - 105) H 11/03/17 09:52 Hemoglobin A1c % 6.3 % (4.0-6.0) H 11/04/17 06:10 Calcium 8.9 mg/dL (8.6-10.3) 11/08/17 04:30 Total Bilirubin 0.7 mg/dL (0.3-1.0) 11/05/17 04:30 AST 17 U/L (13-39) 11/05/17 04:30 ALT 8 U/L (7-52) 11/05/17 04:30 Alkaline Phosphatase 57 U/L (34-104) 11/05/17 04:30 Ammonia 37 umol/L (16-53) 11/08/17 04:30 B-Natriuretic Peptide 28.6 pg/mL (5.0-100.0) 11/03/17 10:00 Total Protein 6.5 gm/dL (6.0-8.3) 11/05/17 04:30 Albumin 3.2 gm/dL (4.2-5.5) L 11/05/17 04:30 Globulin 3.3 gm/dL 11/05/17 04:30 Albumin/Globulin Ratio 1.0 (1.0-1.8) 11/05/17 04:30 Lipase 7 U/L (11-82) L 11/03/17 10:00 Urine Source CATH 11/03/17 14:10 Urine Color YELLOW 11/03/17 14:10 Urine Clarity CLEAR (CLEAR) 11/03/17 14:10 Urine pH 8.0 (4.6 - 8.0) 11/03/17 14:10 Ur Specific [place] 1.010 (1.005-1.030) 11/03/17 14:10 Urine Protein NEGATIVE mg/dL (NEGATIVE) 11/03/17 14:10 Urine Glucose (UA) NEGATIVE mg/dL (NEGATIVE) 11/03/17 14:10 Urine Ketones NEGATIVE mg/dL (NEGATIVE) 11/03/17 14:10 Urine Blood NEGATIVE (NEGATIVE) 11/03/17 14:10 Urine Nitrate NEGATIVE (NEGATIVE) 11/03/17 14:10 Urine Bilirubin NEGATIVE (NEGATIVE) 11/03/17 14:10 Urine Urobilinogen 1.0 E.U./dL (0.2 - 1.0) 11/03/17 14:10 Ur Leukocyte Esterase NEGATIVE (NEGATIVE) 11/03/17 14:10 Urine RBC NONE SEEN /hpf (0-5) 11/03/17 14:10 Urine WBC NONE SEEN /hpf (0-5) 11/03/17 14:10 Ur Epithelial Cells NONE SEEN /lpf (FEW) 11/03/17 14:10 Urine Bacteria NONE SEEN /hpf (NONE SEEN) 11/03/17 14:10 Influenza A (Rapid) NEG FOR INF A 11/03/17 15:00 Influenza B (Rapid) NEG FOR INF B 11/03/17 15:00 - Physical Exam Vitals and I&O: Vital Signs Temp 96.9 F 11/09/17 12:00 Pulse 91 11/09/17 12:00 Resp 18 11/09/17 12:00 BP 117/72 11/09/17 12:00 Pulse Ox 95 11/09/17 12:00 Intake & Output 11/08/17 11/09/17 11/09/17 18:59 06:59 18:59 Intake Total 100 100 Output Total 300 Balance 100 -200 Weight (lbs) 173 lb 165 lb 3.2 oz Intake: Intake, IV Amount 100 100 Piperacillin Sodium/ 100 100 Tazobact 4.5 gm In Sodium Chloride 0.9% 100 ml @ 100 mls/hr IV Q8H [facility] Rx# :[id number] Output: Urine 300 Other: # Bowel Movements 1 Active Medications: Current Medications Acetaminophen (Tylenol 650mg/20.3ml Suspension) 650 mg GT Q4H PRN PRN Reason: PAIN OR TEMP >100 Stop: 01/02/18 13:11 Last Admin: 11/03/17 23:40 Dose: 650 mg Acetaminophen (Tylenol) 650 mg PO Q4HR PRN PRN Reason: Pain Or Fever above 101 Stop: 01/02/18 13:20 Al Hydrox/Mg Hydrox/Simethicone (Maalox) 30 ml PO Q6HR PRN PRN Reason: Dyspepsia Stop: 01/02/18 13:20 Albuterol Sulfate (Albuterol 2.5mg/3ml Neb Ud) 2.5 mg HHN Q4HRT PRN PRN Reason: Congestion Stop: 01/02/18 13:11 Last Admin: 11/03/17 22:14 Dose: 2.5 mg Albuterol Sulfate (Albuterol 2.5mg/3ml Neb Ud) 2.5 mg IH QID [facility]UEL Stop: 01/02/18 16:59 Last Admin: 11/09/17 11:07 Dose: Not Given Ascorbic Acid (Vitamin C) 500 mg GT BID J[facility] MANUEL Stop: 01/02/18 16:59 Last Admin: 11/09/17 09:17 Dose: 500 mg Bisacodyl (Dulcolax 10 Mg Supp) 10 mg RC DAILY PRN PRN Reason: IF MOM INEFFECTIVE Stop: 01/02/18 13:11 Last Admin: 11/06/17 08:14 Dose: 10 mg Calcium Carbonate (Tums) 1,250 mg GT DAILY JESUS MANUEL Stop: 01/03/18 08:59 Last Admin: 11/09/17 09:13 Dose: 1,250 mg Dextromethorphan/Quinidine (Nuedexta 20mg-10mg) 1 cap GT BID JES[facility] MANUEL Stop: 01/02/18 16:59 Last Admin: 11/09/17 09:16 Dose: 1 cap Fish Oil (Hamer 3) 1,000 mg PO DAILY JESUS MANUEL Stop: 01/03/18 08:59 Last Admin: 11/09/17 09:51 Dose: 1,000 mg Guaifenesin (Robitussin) 100 mg PO Q4H PRN PRN Reason: Cough or Congestion Stop: 01/02/18 13:20 Piperacillin Sod/Tazobactam (Sod 4.5 gm/ Sodium Chloride) 100 mls @ 100 mls/hr IV Q8H [facility] Stop: 01/07/18 15:59 Last Admin: 11/09/17 08:57 Dose: 100 mls/hr Sodium Chloride (Nacl 0.45%) 1,000 mls @ 50 mls/hr IV .Q20H [facility] Stop: 01/07/18 13:44 Last Admin: 11/08/17 18:03 Dose: 50 mls/hr Ipratropium [place] (Atrovent Neb 0.5mg/2.5ml) 0.5 mg HHN Q4HRT PRN PRN Reason: Congestion Stop: 01/02/18 13:11 Last Admin: 11/03/17 22:14 Dose: 0.5 mg Ipratropium [place] (Atrovent Neb 0.5mg/2.5ml) 0.5 mg IH QID [facility] MANUEL Stop: 01/02/18 16:59 Last Admin: 11/09/17 11:08 Dose: Not Given Lactobacillus Rhamnosus (Culturelle 15b) 1 each PO DAILY JES[facility] MANUEL Stop: 01/03/18 08:59 Last Admin: 11/09/17 09:16 Dose: 1 each Magnesium Hydroxide (Milk Of Magnesia) 30 ml GT Q72H PRN PRN Reason: NO BM (CONSTIPATION) Stop: 01/02/18 13:11 Last Admin: 11/05/17 21:43 Dose: 30 ml Methylprednisolone Sodium Succinate (Solu-Medrol) 40 mg IVP Q12HR [facility] Stop: 01/08/18 20:59 Miscellaneous (Vte Chemical Prophylaxis Screen/ Admission) 1 ea MC PRN PRN PRN Reason: PROTOCOL Stop: 01/02/18 16:14 Miscellaneous (Probiotic Screen) 1 ea MC PRN PRN PRN Reason: PROTOCOL Stop: 01/03/18 10:44 Ondansetron HCl (Zofran) 4 mg IV Q8H PRN PRN Reason: Nausea / Vomiting Stop: 01/02/18 13:20 Pantoprazole Sodium (Protonix) 40 mg IVP BID JES[facility] MANUEL Stop: 01/05/18 08:59 Last Admin: 11/09/17 09:35 Dose: 40 mg Polyethylene Glycol (Miralax) 17 gm GT DAILY JESUS MANUEL Stop: 01/03/18 08:59 Last Admin: 11/09/17 09:51 Dose: 17 gm Quetiapine Fumarate (Seroquel) 300 mg PO HS JESUS MANUEL PRN Reason: Protocol Stop: 01/02/18 20:59 Last Admin: 11/08/17 21:21 Dose: 300 mg Quetiapine Fumarate (Seroquel) 200 mg GT QAM JESUS MANUEL PRN Reason: Protocol Stop: 03/20/18 08:59 Last Admin: 11/09/17 09:17 Dose: 200 mg Sodium Phosphate (Fleet Enema) 135 ml RC PRN PRN PRN Reason: IF DULCOLAX INEFFECTIVE Stop: 01/02/18 13:11 Last Admin: 11/06/17 17:13 Dose: 135 ml Trazodone HCl (Desyrel) 25 mg GT HS JESUS MANUEL PRN Reason: Protocol Stop: 01/02/18 20:59 Last Admin: 11/08/17 21:21 Dose: 25 mg Valproate Sodium (Depakene) 625 mg GT DAILY JESUS MANUEL PRN Reason: Protocol Stop: 01/03/18 08:59 Last Admin: 11/09/17 09:19 Dose: 625 mg Valproate Sodium (Depakene) 750 mg GT HS JESUS MANUEL PRN Reason: Protocol Stop: 01/02/18 20:59 Last Admin: 11/08/17 21:21 Dose: 750 mg Vitamin D (Vitamin D) 400 iu PO QPM JESUS MANUEL Stop: 01/02/18 16:59 Last Admin: 11/08/17 18:08 Dose: 400 iu General: weak, demented HEENT: NC/AT, PERRLA Lungs: congested, rales, ronchi Cardiovascular: Normal S1, Normal S2 Abdomen: distended Extremities: excoriation, deformity Neurological: no change, unable to follow command - Procedures Procedures: Procedures Procedure Code Date CHANGE FEEDING DEVICE IN UP INTEST TRACT, 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 APPROACH [id number] 09/11/17 CHANGE GASTROSTOMY TUBE 27358 07/06/17 EGD BIOPSY SINGLE/MULTIPLE 53462 09/11/[address] GASTROSTOMY TUBE 91055 02/16/09 EXCISION OF STOMACH, ENDO, DIAGN [id number] 09/11/17 INSERT EMERGENCY AIRWAY 45978 12/21/16 INSERTION OF ENDOTRACHEAL AIRWAY INTO TRACHEA, VIA OPENING [id number] 12/21/16 INSERTION OF INFUSION DEVICE INTO R ATRIUM, PERC APPROACH [id number] 12/21/16 OTHER ENDOSCOPY OF SM INTEST 45.13 02/16/09 REPLACE GASTROSTOMY TUBE 97.02 02/16/09 RESPIRATORY VENTILATION, GREATER THAN 96 CONSECUTIVE HOURS [id number] 12/21/16 VENT MGMT INPAT INIT DAY 90939 12/21/16 VENT MGMT INPAT SUBQ DAY 47524 12/21/16 Internal Medicine Assmt/Plan - Assessment Assessment: HYPOXIC RESPIRATORY DISTRESS PNA ELEVATED DDIMER MRSA NARES GI BLEED ACUTE RENAL INSUFFICIENCY MILD PROTEIN CALORIE MALNUTRITION SEVERE INTELLECTUAL DISABILITY HTN DYSPHAGIA IMPLUSE CONTROL DISORDER INSOMNIA GASTRITIS BIPOLAR DISORDER PSEUDOBULAR AFFECT - Plan Plan: CONTINUE PROTONIX DRIP MONITOR H/H FOLLOW UP LABS IN AM CONTINUE WITH BIPAP CONTINUE CURRENT PLAN OF CARE Nutritional Asmnt/Malnutr-PDOC - Dietary Evaluation Malnutrition Findings (Please click <Entered> for more info): Nutritional Asmnt/Malnutrition Start: 11/04/17 15: 25 Text: Status: Complete Freq: Document 11/04/17 15:25 DION (Rec: 11/04/17 16:09 [email or web address]) Nutritional Asmnt/Malnutrition Patient General Information Nutritional Screening High Risk Diagnosis PNA, acute respiratory failure Pertinent Medical Hx/Surgical Hx HTN, moderate intellectual disability, psychosis, anoxic encephalopathy, s/p aspiration PNA, gastrostomy, impulse control disorder, insommnia, gastritis, bipolar, pseudobulbar affect, sholelithiasis, cell carcinoma , PEG/G tube Subjective Information Pt seen resting in bed at time of visit, on bipap. Spoke with RN, pt had coffee groud vomiting x 5, on NGT suction, still on NPO. Current Diet Order/ Nutrition Support NPO Pertinent Medications vitamin C, tums, omega 3, culturelle, glagyl, bactroban, pantoprazole, miralax, kcal, seroquel, vitamin D Pertinent Labs 11/04 Na 134, K 3.2, Cl 97, BUN 34, Cr 0.7, Glucose 202, A1c 6.3 11/03 POC 130 Nutritional Hx/Data Height 5 ft 5 in Height (Calculated Centimeters) 165.1 Current Weight (lbs) 168 lb Weight (Calculated Kilograms) 76.2 Weight (Calculated Grams) 76315.5 [place] Body Weight 136 % [place] Body Weight 124 Body Mass Index (BMI) 27.9 Weight Status Overweight GI Symptoms GI Symptoms Vomitting Last BM none Skin Integrity/Comment: g tube site redness, presure area to scrotum and sacrum Estimated Nutritional Goals BEE in Kcals: Using Current wt Calories/Kcals/Kg 25-30 Kcals Calculated 3969-1394 Protein: Using Current wt Protein g/k-1.2 Protein Calculated 76-91 Fluid: ml 1900-2280ml (1ml/kcal) Nutritional Problem 1. Problem Problem inadequate energy intake Etiology pt having episodes of vomiting Signs/Symptoms: pt on NPO and nutrition support not initiated Intervention/Recommendation Comments 1. Monitor NPO status. 2. When GI function improved and medically appropriate, will consider initiate enteral feeding at low rate. Recommend start Nutren Pulmonary at 15ml/hr continuous, increase 10ml/hr q6hr as tolerated to goal rate of 55. This will provide 1980kcal, 90g protein and 1032ml free water, meeting 100 % of nutritional needs. 3. Monitor GI function, wt, labs and skin integrity 4. F/U as high risk in 2-3 days, 11/06-11/07 Expected Outcomes/Goals Expected Outcomes/Goals 1. Pt to meet at least 75% of nutritional needs. 2. Wt stability, skin to remain intact, GI function improved, labs to approach WNL .
[2017-11-09] MEDS ORDERED: Albuterol Nebulizer 2.5mg/3mL HHN SCH (19:00)
[2017-11-09] MEDS ORDERED: Ipratropium Neb 0.5 mg/2.5 mL UD HHN SCH (19:00)
--- NOTE | 2017-11-09 19:44 | Discharge Summary ---
DATE OF DISCHARGE: 11/09/2017 DISCHARGE DIAGNOSES: Hypoxic acute respiratory distress, pneumonia, elevated D-dimer, acute renal insufficiency, mild protein-calorie malnutrition, severe intellectual disability, hypertension, dysphagia, impulse control disorder, insomnia, gastritis, bipolar disorder, pseudobulbar affect. HISTORY OF PRESENT ILLNESS: This is a 62-year-old male resident of [facility] brought to [facility] due to shortness of breath. The patient did not have any fevers at the half-way. The patient is now admitted for further management. PHYSICAL EXAMINATION: GENERAL: Elderly male, awake, alert, in no apparent distress. VITAL SIGNS: Stable. HEENT: Normocephalic, atraumatic. NECK: Supple. No mass. LUNGS: Clear bilaterally. ABDOMEN: Soft, nontender. HOSPITAL COURSE: During the hospital stay, the patient was admitted to the ICU unit. The patient had a GI consultation as well as Pulmonary consultation. On 11/04/2017, the patient was noted to have coffee-ground emesis and the patient was connected to intermittent suction via NG tube. The patient was also placed on BiPAP as well. GI plan of care for this patient was to continue intermittent suction. The patient's H and H were being monitored as well. The patient was kept on IV Reglan. The patient was weaned off the BiPAP and later transferred to the telemetry unit. The patient was also kept on IV Protonix drip. The patient's latest chest x-ray on 11/08/2017 shows faint infiltrate within the left lower lobe. The patient also had a sputum culture done and was positive for ESBL E. coli, Enterobacter gergoviae, Pseudomonas aeruginosa. The patient was also positive for MRSA of the nares. The patient was being treated with Bactroban. The patient did not have any symptoms of any shortness of breath or any fevers. For this reason, the patient is stable for discharge. CONDITION UPON DISCHARGE: Fair. DISPOSITION: [facility]. JOB# [id number]
[2017-11-09] MEDS ORDERED: methylPREDNISolone SS 40 mg Vial IVP SCH (21:00)
[2017-11-10 06:13] LABS: FOLIC ACID >20.0 ng/mL (>3.0)
== END 2017-11-09 16:15 | disposition home or self-care (01) | DRG 177 ==
LOC: ER 09:32 → ICU 11:30 → TELE 11-08 06:07 → MSI 11-09 13:25
PROVIDERS: ADMIT Internal Medicine; ATTEND Internal Medicine
PROC: 5A09457 Assistance with Respiratory Ventilation, 24-96 Consecutive Hours, Continuous Positive Airway Pressure (ICD-10-PCS; principal; 2017-11-03)
PROC: 0D9670Z Drainage of Stomach with Drainage Device, Via Natural or Artificial Opening (ICD-10-PCS; 2017-11-04)
DX: J15.5 Pneumonia due to Escherichia coli (principal); J96.01 Acute respiratory failure with hypoxia; K29.71 Gastritis, unspecified, with bleeding; N17.9 Acute kidney failure, unspecified; E44.1 Mild protein-calorie malnutrition; R13.10 Dysphagia, unspecified; F72 Severe intellectual disabilities; Z93.1 Gastrostomy status; N39.0 Urinary tract infection, site not specified; B95.62 Methicillin resistant Staphylococcus aureus infection as the cause of diseases classified elsewhere; J40 Bronchitis, not specified as acute or chronic; C44.311 Basal cell carcinoma of skin of nose; J15.1 Pneumonia due to Pseudomonas; J15.8 Pneumonia due to other specified bacteria; I10 Essential (primary) hypertension; F63.9 Impulse disorder, unspecified; G47.00 Insomnia, unspecified; F31.9 Bipolar disorder, unspecified; F48.2 Pseudobulbar affect; Z68.27 Body mass index [BMI] 27.0-27.9, adult
CPT/HCPCS: 36415-UA; 36600-90; 71045-TC; 71275-TC; 74000-TC; 80048-TC; 80053-TC; 81001-TC; 82140-TC; 82607-90; 82746-90; 82803-TC; 82948-90; 83036-90; 83690-TC; 83880-TC; 85007-TC; 85027-TC; 85379-TC; 85610-TC; 85730-TC; 87070; 87086-90; 87804-TC; 90779; 90799; 93005; 94640; 94660; 94760; C9113; J0692; J1644; J1940; J2405; J2543; J2920; J3480; J7030; J7040; J7613; Z7610

== ENCOUNTER 2018-10-07 17:19 | Inpatient (IN) | payer MEDICARE, MEDICAID ==
[2018-10-07 18:19] LABS: MONOCYTE ABSOLUTE 1.1 Th/cmm (0.3-1.0)
[2018-10-07 18:21] LABS: % BASOPHILS 2.2 % (0.0-2.0); % EOSINOPHILS 4.4 % (0.0-5.0); % LYMPHOCYTES 17.5 % (20.0-50.0); % MONOCYTES 9.3 % (2.0-10.0); % NEUTROPHILS 66.6 % (40.0-80.0); BASOPHILE ABSOLUTE 0.2 Th/cumm (0-0.2); EOSINOPHILE ABSOLUTE 0.5 Th/cmm (0.1-0.4); HEMOGLOBIN 13.8 gm/dL (12-16); MEAN CORPUSCULAR HEMOGLOBIN 30.6 pg (27.0-31.0); MEAN CORPUSCULAR HGB CONC 33.6 pg (28.0-36.0); MEAN PLATELET VOLUME 9.9 fl; NEUTROPHILE ABSOLUTE 7.5 Th/cmm (1.8-8.0); PLATELET COUNT 229 Th/cmm (150-400); RED BLOOD COUNT 4.51 Mil/cmm (3.80-5.80); RED CELL DISTRIBUTION WIDTH 13.3 % (11.5-20.0); WHITE BLOOD COUNT 11.3 Th/cmm (4.8-10.8)
[2018-10-07 18:34] LABS: ALBUMIN 3.4 gm/dL (4.2-5.5); ALKALINE PHOSPHATASE 98 U/L (34-104); ANION GAP 14.8 (7.0-16.0); BILIRUBIN,TOTAL 0.5 mg/dL (0.3-1.0); BUN - UREA NITROGEN 30 mg/dL (7-25); CALCIUM SERUM 9.4 mg/dL (8.6-10.3); CARBON DIOXIDE 27.2 mEq/L (21.0-31.0); CHLORIDE 100 mEq/L (98-107); CREATININE - SERUM 0.6 mg/dL (0.7-1.3); GFR AFRICAN-AMERICAN > 60.0 ml/min (>90); GFR NON AFRICAN-AMERICAN > 60.0 ml/min; GLUCOSE 77 mg/dL (70-105); SGOT 18 U/L (13-39); SGPT/ALT 6 U/L (7-52); SODIUM SERUM 138 mEq/L (136-145); TOTAL PROTEIN,SERUM 6.9 gm/dL (6.0-8.3)
--- NOTE | 2018-10-07 18:57 | ED Physician Chart ---
ED Chief Complaint/HPI - Patient Information Date Seen:: 10/07/18 Time Seen:: 17:44 Chief Complaint:: G-TUBE DISPLACEMENT History of Present Illness:: THIS IS A 63 YO MALE SENT FOR G-TUBE DISPLACEMENT AND EVALUATION OF A DISTENDED ABDOMEN. Allergies:: Allergies Allergy/AdvReac Type Severity Reaction Status Date / Time No Known Allergies Allergy Verified 03/11/18 06:56 Vitals:: Vital Signs - 8 hr 10/07/18 17:30 Temp 96.9 F HR 70 RR 16 BP 128/72 O2 Sat % 96 Historian:: Medical Records Review:: Nurse's Note Reviewed, Old Chart Reviewed, Transfer documents Reviewed ED Review of Systems - Review of Systems General/Constitutional: Other (THIS PATIENT CANNOT GIVE A REVIEW OF SYSTEMS) ED Past Medical History - Past Medical History Obtainable: Yes Past Medical History: Dementia Family History: None Social History: Non Smoker, No Alcohol, No Drug Use, Care Facility Surgical History: PEG/GTube Psychiatricy History: Schizophrenia, Dementia Family Medical History - Family Member Mother History Unknown: Yes Ethnicity: Unknown Living Status: Unknown Hx Family Cancer: No Hx Family Coronary Artery Disease: No Hx Family Congestive Heart Failure: No Hx Family Hypertension: No Hx Family Stroke: No Hx Family Diabetes: No Hx Family Seizures: No Hx Family Dementia: No Hx Family AIDS: No Hx Family HIV: Yes Hx Family COPD: No Hx Family Hepatitis: No Hx Family Psychiatric Problems: No Hx Family Tuberculosis: No ED Physical Exam - Physical Examination General/Constitutional: Awake, Well-developed, well-nourished, Alert, No distress, GCS 15, Non-toxic appearing, Ambulatory Other Gen/Cons comments:: THE PATIENT IS DISORIENTED TIMES 4. Head: Atraumatic Eyes: Lids, conjuctiva normal, PERRL, EOMI Skin: Nl inspection, No rash, No skin lesions, No ecchymosis, Well hydrated, No lymphadenopathy ENMT: External ears, nose nl, Nasal exam nl, Lips, teeth, gums nl Neck: Nontender, Full ROM w/o pain, No JVD, No nuchal rigidity, No bruit, No mass, No stridor Respiratory: Nl effort/Exclusion, Clear to Auscultation, No Wheeze/Rhonchi/Rales Cardio Vascular: RRR, No murmur, gallop, rubs, NL S1 S2 GI: No tenderness/rebounding/guarding, No organomegaly, No hernia, Normal BS's, Nondistended, No mass/bruits, No McBurney tenderness Other GI comments:: G-TUBE DISLODGED AND ABDOMEN DISTENDED. : No CVA tenderness Extremities: No tenderness or effusion, Full ROM, normal strength in all extremities, No edema, Normal digits & nails Neuro/Psych: Alert/oriented, DTR's symmetric, Normal sensory exam, Normal motor strength, Judgement/insight normal, Mood normal, Normal gait, No focal deficits Misc: Normal back, No paraspinal tenderness ED Labs/Radiology/EKG Results - Lab Results Results: Laboratory Tests 10/07/18 10/07/18 10/07/18 18:16 18:16 18:16 WBC 11.3 H RBC 4.51 Hgb 13.8 Hct 41.0 MCV 91.0 MCH 30.6 MCHC Differential 33.6 RDW 13.3 Plt Count 229 MPV 9.9 Neutrophils % 66.6 Lymphocytes % 17.5 L Monocytes % 9.3 Eosinophils % 4.4 Basophils % 2.2 H Sodium 138 Potassium 4.0 Chloride 100 Carbon Dioxide 27.2 Anion Gap 14.8 BUN 30 H Creatinine 0.6 L Est GFR ( Amer) > 60.0 Est GFR (Non-Af Amer) > 60.0 BUN/Creatinine Ratio 50.0 Glucose 77 Calcium 9.4 Total Bilirubin 0.5 AST 18 ALT 6 L Alkaline Phosphatase 98 Troponin I 0.01 Total Protein 6.9 Albumin 3.4 L Globulin 3.5 Albumin/Globulin Ratio 1.0 - Radiology Results Results: UPPER GI X-RAY = FECAL IMPACTION G-TUBE REPLACED AND IN THE STOMACH. ED Assessment - Assessment General Assessment: -TUBE DISPLACEMENT ED Septic Shock - . Is Septic Shock (SBP<90, OR Lactate>4 mmol\L) present?: No - <6hrs of presentation: Vital Signs: Vital Signs - 8 hr 10/07/18 17:30 Temp 96.9 F HR 70 RR 16 BP 128/72 O2 Sat % 96 ED Reassessment (Disposition) - Reassessment Reassessment Condition:: Improved - Diagnosis Diagnosis:: G-TUBE DISPLACEMENT FECAL IMPACTION DEMENTIA - Patient Disposition Discharge/Transfer:: Acute Care w/in this hosp Admitting Medical Physician:: Federico Thomas Condition at Disposition:: Improved
[2018-10-07] MEDS ORDERED: Fleet Enema 135 mL RC PRN (19:19)
[2018-10-07] MEDS ORDERED: Magnesium Hydroxide (MOM) 30 mL UDC GT PRN (19:19)
[2018-10-07] MEDS ORDERED: Albuterol/Ipratropium Neb 3 ML AERS HHN PRN (19:19)
[2018-10-07] MEDS ORDERED: Albuterol Nebulizer 2.5mg/3mL HHN PRN (19:19)
[2018-10-07] MEDS ORDERED: ACETAMINOPHEN 650 MG GT PRN (19:19)
[2018-10-07] MEDS ORDERED: ACETAMINOPHEN 650 MG RC PRN (19:19)
[2018-10-07] MEDS ORDERED: Fleet Enema 135 mL RC ONE (19:22)
[2018-10-07 20:13] VITALS: BP 117/68
[2018-10-07] MEDS: D5-0.45NS 1,000 ML IV SCH (20:31)
[2018-10-07] MEDS ORDERED: MAGNESIUM HYDROX GT SCH (21:00)
[2018-10-07] MEDS ORDERED: CALCIUM CARB GT SCH (21:00)
[2018-10-08] MEDS ORDERED: Probiotic Screen MC PRN (08:26)
[2018-10-08] MEDS: Lactobacillus Rhamnosus GG 15 Billion CFU CAP.SPRINK GT SCH (08:59)
[2018-10-08] MEDS: Dextromethorphan/Quinidine 20mg/10mg Cap GT SCH ×2 (08:59→16:35)
[2018-10-08] MEDS: POLYETHYLENE GLYCOL 3350 17 GM PACK GT SCH (08:59)
[2018-10-08] MEDS: Pantoprazole 40 mg EC Tab PO SCH (08:59)
[2018-10-08] MEDS ORDERED: FATTY ACIDS GT SCH (09:00)
[2018-10-08] MEDS: Fish Oil 1,000 MG SGL PO SCH (09:00)
[2018-10-08] MEDS ORDERED: ASCORB SOD GT SCH (09:00)
[2018-10-08] MEDS: Lactulose 10 Gm/15 mL 30mL UDC PO SCH ×2 (09:00→16:35)
[2018-10-08] MEDS ORDERED: OMEGA GT SCH (09:00)
[2018-10-08] MEDS ORDERED: VIT C GT SCH (09:00)
[2018-10-08] MEDS ORDERED: Non-Formulary Item 1 EA (Lactobacillus Acidophilus [Acidophilus] 1 EACH) GT SCH (09:00)
[2018-10-08] MEDS ORDERED: Non-Formulary Item 1 EA (Omeprazole [Omeprazole] 20 MG) GT SCH (09:00)
[2018-10-08] MEDS ORDERED: ASCORBATE CA GT SCH (09:00)
[2018-10-08] MEDS ORDERED: [UNRECOGNIZED DRUG - OTHER] GT SCH (09:00)
[2018-10-08] MEDS ORDERED: FISH OIL GT SCH (09:00)
[2018-10-08] MEDS ORDERED: Non-Formulary Item 1 EA (Multivit,Th Iron,Other Min [Thera-M] 1 TAB) GT SCH (09:00)
--- NOTE | 2018-10-08 11:10 | Diagnostic Imaging Report ---
Upper GI (Limited) HISTORY: Gastrostomy tube placement Water-soluble contrast was instilled through patient's gastrostomy tube. There is opacification of the gastric lumen. IMPRESSION: 1. Confirmation of gastrostomy tube within the gastric lumen
--- NOTE | 2018-10-08 11:47 | Diagnostic Imaging Report ---
KUB abdominal film HISTORY: Pain, fecal impaction The exam demonstrates residual contrast throughout nondilated large bowel. Residual contrast is noted in a mildly distended stool-filled rectum. Findings consistent with a degree of constipation and fecal impaction. No free intraperitoneal air. IMPRESSION: 1. Findings consistent with a degree of constipation and fecal impaction as noted above.
--- NOTE | 2018-10-08 14:57 | History & Physical ---
ADMIT DATE: 10/07/2018 CHIEF COMPLAINT: Malfunctioning G-tube, not able to get medication and unable to give fluids. HISTORY OF PRESENT ILLNESS: This is a 63-year-old male with history of mental retardation, hypertension, psych disorder, bedbound, dysphagia with G-tube. Apparently, the G-tube came out, has not been able to get his medication and nutrition. The patient brought in to the ER and noted to be dehydrated. PAST MEDICAL HISTORY: As mentioned in the history of present illness. PAST SURGICAL HISTORY: G-tube. ALLERGIES: No known drug allergies. MEDICATIONS: Tylenol, atenolol, ascorbic acid, ____, lactobacillus, lactulose, pantoprazole, Seroquel, trazodone, Depakote, and vitamin D. FAMILY HISTORY: Noncontributory. SOCIAL HISTORY: The patient lives in a retirement. The patient is requiring 24-hour total care. REVIEW OF SYSTEMS: This is limited secondary to pain, comatose state. We will try to obtain more detailed review of system at a later date by talking to family members. There are no family members. There is a telehealth case manager, Chaka, #[phone]. We will also try to get more information from nursing staff at ____ #[phone]. PHYSICAL EXAMINATION: VITAL SIGNS: Blood pressure 170/72, respirations 17, pulse 71, and temperature 98. GENERAL: An elderly male who appears his stated age. NECK: Supple. No mass. LUNGS: Equal breath sounds, few rhonchi. HEART: Regular rate and rhythm. ABDOMEN: G-tube. EXTREMITIES: Positive excoriation atrophy with contracture. LABORATORY DATA: WBC 11, hemoglobin 13, and platelets 229. Sodium 138, potassium 4.0, BUN 30, creatinine 0.6, and blood sugar 77. Albumin 3.4. ASSESSMENT AND PLAN: Dehydration, malfunctioning G-tube, leukocytosis, renal insufficiency, low albumin, hypertension, psych disorder, mental retardation, bed bound. We will continue the patient on IV hydration. We will refer the patient to GI. G-tube was replaced in the Emergency Room. It was too small for feeding. He may need to have a bigger G-tube ____ replacement. Continue with current care with followup consult and recommendation. JOB# [id number]
[2018-10-08] MEDS: D5-0.45NS 1,000 ML IV SCH (16:23)
--- NOTE | 2018-10-09 03:29 | Consultation ---
DATE OF CONSULTATION: 10/08/2018 CONSULTING PHYSICIAN: Dr. Thomas. REASON FOR CONSULTATION: G-tube malfunction. HISTORY OF PRESENT ILLNESS: The patient is a 63-year-old male who has developmental delay, schizophrenia, dementia, who was at a nursing facility, was sent into the ER for a G-tube malfunction. The history is mostly obtained from nursing staff and the chart as the patient is unable to give me a history at all. Apparently, he had G-tube problems at his nursing facility, but it is unclear exactly what was going on there. The ER physician changed the G-tube and apparently put in a 16-Belgian G-tube and then ordered an x-ray, which confirmed placement in the stomach. However, tube feeds were not started yet. At the current time, the patient has no complaint and the G-tube is in satisfactory position. PAST MEDICAL HISTORY: Dementia, schizophrenia, dysphagia. PAST SURGICAL HISTORY: There is a surgical scar of the patient is unable to tell me what this is from. FAMILY HISTORY: Noncontributory. SOCIAL HISTORY: The patient lives at a nursing facility. There is no documented history of illicit drug use or alcoholism. REVIEW OF SYSTEMS: Not possible given the patient's inability to participate in the interview. CURRENT MEDICATIONS: Include Tylenol, albuterol, vitamin C, atenolol, bisacodyl, calcium, lactulose, milk of magnesia, probiotics, Protonix, MiraLax, Seroquel, Fleet enema, Depakote and vitamin D. PHYSICAL EXAMINATION: VITAL SIGNS: Blood pressure is 117/68, pulse 64 beats per minute, temperature 98.1, oximetry is 96%, respiratory rate 18. GENERAL: The patient is lying on his back. Alert and oriented x 1, no apparent distress. HEAD, EARS, EYES, NOSE AND THROAT: Normocephalic, atraumatic appearing head. Pupils equal, reactive to light. Extraocular muscles are intact. Moist mucous membranes. NECK: Supple. No JVD or thyromegaly or lymphadenopathy. CHEST: Clear to auscultation bilaterally. CARDIOVASCULAR: S1, S2 are present, regular rate and rhythm. ABDOMEN: There is a G-tube site in the left upper quadrant, there is a mild amount of erythema around the tube, but no leakage. There is a well-healed surgical scar in the lower mid abdomen. No guarding or rebound otherwise soft. EXTREMITIES: Nonpitting edema is noted bilaterally. Pulses are not present. SKIN: There is no obvious jaundice. LABORATORY DATA: White blood cell count 11.3, hemoglobin 13.8, platelet count is 229. Sodium 138, BUN 30, creatinine 0.6, AST is 18, ALT 6, total bilirubin 0.5. IMAGING: Preliminary KUB shows placement of the new G-tube in the stomach. IMPRESSION: This is a 63-year-old male with history of schizophrenia, dementia, dysphagia with a G-tube, who was at a nursing facility, admitted to the hospital with G-tube malfunction. 1. G-tube malfunction. 2. Dysphagia. 3. Schizophrenia. 4. Dysphagia. DISCUSSION: The G-tube was already replaced by the ER physician, although this is a very small tube. Unclear why the ER physician chose to put in such a small tube; however, we have been trying feeding through this yet and thus we will attempt to do this now as that he has already been confirmed. If there is leakage, we can try to place a larger caliber tube tomorrow. Additionally, we will order zinc based cream for skin protection around the tube and we will also get a KUB to look for any evidence of fecal impaction. RECOMMENDATIONS: 1. Start tube feeding with the previous tube feeding formula at 10 mL an hour and increase slowly to the goal rate. 2. Hold for any residual greater than 100 mL and check every 6 hours. 3. Flush the G-tube with 100 mL of water every 6 hours. 4. KUB to look for fecal impaction. If there is a fecal impaction, the patient should have an enema and aggressive bowel regimen. 5. If there is leakage issue with this new tube. We will plan to upsize that tomorrow. Thank you for allowing me to participate in his care. Please call with any further questions. JOB# [id number]
[2018-10-09 05:57] LABS: % BASOPHILS 0.1 % (0.0-2.0); % EOSINOPHILS 2.6 % (0.0-5.0); % LYMPHOCYTES 16.8 % (20.0-50.0); % MONOCYTES 9.7 % (2.0-10.0); % NEUTROPHILS 70.8 % (40.0-80.0); EOSINOPHILE ABSOLUTE 0.2 Th/cmm (0.1-0.4); HEMATOCRIT 38.4 % (41.0-60); LYMPHOCYTE ABSOLUTE 1.4 Th/cmm (1.5-3.0); MEAN CELL VOLUME 91.7 fl (80-99); MEAN CORPUSCULAR HGB CONC 33.8 pg (28.0-36.0); MEAN PLATELET VOLUME 9.1 fl; MONOCYTE ABSOLUTE 0.8 Th/cmm (0.3-1.0); NEUTROPHILE ABSOLUTE 6.2 Th/cmm (1.8-8.0); PLATELET COUNT 245 Th/cmm (150-400); RED BLOOD COUNT 4.19 Mil/cmm (3.80-5.80); RED CELL DISTRIBUTION WIDTH 13.3 % (11.5-20.0); WHITE BLOOD COUNT 8.6 Th/cmm (4.8-10.8)
[2018-10-09 06:33] LABS: BUN - UREA NITROGEN 17 mg/dL (7-25); CALCIUM SERUM 9.1 mg/dL (8.6-10.3); CARBON DIOXIDE 27.5 mEq/L (21.0-31.0); CHLORIDE 105 mEq/L (98-107); CREATININE - SERUM 0.6 mg/dL (0.7-1.3); GFR AFRICAN-AMERICAN > 60.0 ml/min (>90); GFR NON AFRICAN-AMERICAN > 60.0 ml/min; GLUCOSE 99 mg/dL (70-105); MAGNESIUM 2.2 mg/dL (1.9-2.7); POTASSIUM SERUM 3.5 mEq/L (3.5-5.1); SODIUM SERUM 139 mEq/L (136-145)
[2018-10-09] MEDS: Lactulose 10 Gm/15 mL 30mL UDC PO SCH (09:39)
[2018-10-09] MEDS: POLYETHYLENE GLYCOL 3350 17 GM PACK GT SCH (09:40)
[2018-10-09] MEDS: Lactobacillus Rhamnosus GG 15 Billion CFU CAP.SPRINK GT SCH (09:41)
[2018-10-09] MEDS: Fish Oil 1,000 MG SGL PO SCH (09:41)
[2018-10-09] MEDS: Pantoprazole 40 mg EC Tab PO SCH (09:42)
[2018-10-09] MEDS: Dextromethorphan/Quinidine 20mg/10mg Cap GT SCH ×2 (09:42→18:45)
--- NOTE | 2018-10-09 10:27 | GI Progress Note ---
Subjective - Review of Systems Service Date: 10/09/18 Events since last encounter: Patient tolearting G tube without any problems Objective - Results Result Diagrams: 10/09/18 05:35 10/09/18 05:35 Recent Labs: Laboratory Last Values WBC 8.6 Th/cmm (4.8-10.8) 10/09/18 05:35 RBC 4.19 Mil/cmm (3.80-5.80) 10/09/18 05:35 Hgb 13.0 gm/dL (12-16) 10/09/18 05:35 Hct 38.4 % (41.0-60) L 10/09/18 05:35 MCV 91.7 fl (80-99) 10/09/18 05:35 MCH 31.0 pg (27.0-31.0) 10/09/18 05:35 MCHC Differential 33.8 pg (28.0-36.0) 10/09/18 05:35 RDW 13.3 % (11.5-20.0) 10/09/18 05:35 Plt Count 245 Th/cmm (150-400) 10/09/18 05:35 MPV 9.1 fl 10/09/18 05:35 Neutrophils % 70.8 % (40.0-80.0) 10/09/18 05:35 Lymphocytes % 16.8 % (20.0-50.0) L 10/09/18 05:35 Monocytes % 9.7 % (2.0-10.0) 10/09/18 05:35 Eosinophils % 2.6 % (0.0-5.0) 10/09/18 05:35 Basophils % 0.1 % (0.0-2.0) 10/09/18 05:35 Sodium 139 mEq/L (136-145) 10/09/18 05:35 Potassium 3.5 mEq/L (3.5-5.1) 10/09/18 05:35 Chloride 105 mEq/L (98-107) 10/09/18 05:35 Carbon Dioxide 27.5 mEq/L (21.0-31.0) 10/09/18 05:35 Anion Gap 10.0 (7.0-16.0) 10/09/18 05:35 BUN 17 mg/dL (7-25) 10/09/18 05:35 Creatinine 0.6 mg/dL (0.7-1.3) L 10/09/18 05:35 Est GFR ( Amer) > 60.0 ml/min (>90) 10/09/18 05:35 Est GFR (Non-Af Amer) > 60.0 ml/min 10/09/18 05:35 BUN/Creatinine Ratio 28.3 10/09/18 05:35 Glucose 99 mg/dL (70-105) 10/09/18 05:35 Calcium 9.1 mg/dL (8.6-10.3) 10/09/18 05:35 Magnesium 2.2 mg/dL (1.9-2.7) 10/09/18 05:35 Total Bilirubin 0.5 mg/dL (0.3-1.0) 10/07/18 18:16 AST 18 U/L (13-39) 10/07/18 18:16 ALT 6 U/L (7-52) L 10/07/18 18:16 Alkaline Phosphatase 98 U/L (34-104) 10/07/18 18:16 Troponin I 0.01 ng/mL (0.01-0.05) 10/07/18 18:16 Total Protein 6.9 gm/dL (6.0-8.3) 10/07/18 18:16 Albumin 3.4 gm/dL (4.2-5.5) L 10/07/18 18:16 Globulin 3.5 gm/dL 10/07/18 18:16 Albumin/Globulin Ratio 1.0 (1.0-1.8) 10/07/18 18:16 - Physical Exam Vitals and I&O: Vital Signs Temp 98.5 F 10/09/18 04:00 Pulse 71 10/09/18 09:42 Resp 12 10/09/18 07:07 BP 128/73 10/09/18 09:42 Pulse Ox 92 10/09/18 07:07 Intake & Output 10/08/18 10/09/18 10/09/18 18:59 06:59 18:59 Intake Total 1000 304 Balance 1000 304 Weight (lbs) 73.164 kg Intake: Intake, IV Amount 1000 D5-0.45NS 1,000 ml @ 80 1000 mls/hr IV .[id number] [facility] Rx #:[id number] Tube Feeding 304 Other: # Voids 2 # Bowel Movements 1 Stool Characteristics Hard Formed Weight Source Bedscale Active Medications: Current Medications Acetaminophen (Tylenol 650mg Supp) 650 mg RC Q4H PRN PRN Reason: Fever >101 Stop: 12/07/18 08:24 Albuterol Sulfate (Albuterol 2.5mg/3ml Neb Ud) 2.5 mg HHN Q4H PRN PRN Reason: Congestion Stop: 12/06/18 19:18 Albuterol/Ipratropium (Duoneb Neb) 3 ml HHN Q4H PRN PRN Reason: Congestion Stop: 12/06/18 19:18 Ascorbic Acid (Vitamin C) 500 mg PO DAILY [facility] Stop: 12/07/18 08:59 Last Admin: 10/09/18 09:41 Dose: 500 mg Atenolol (Tenormin) 25 mg GT DAILY [facility] Stop: 12/07/18 08:59 Last Admin: 10/09/18 09:42 Dose: 25 mg Bisacodyl (Dulcolax 10 Mg Supp) 10 mg RC DAILY PRN PRN Reason: Constipation Stop: 12/06/18 19:18 Calcium Carbonate (Calcium Carb) 600 mg GT QID [facility] Stop: 12/07/18 08:59 Last Admin: 10/09/18 09:41 Dose: 600 mg Dextromethorphan/Quinidine (Nuedexta 20mg-10mg) 1 cap GT BID [facility] Stop: 12/07/18 08:59 Last Admin: 10/09/18 09:42 Dose: 1 cap Fish Oil (Hurlock 3) 1,000 mg PO DAILY [facility] Stop: 12/07/18 08:59 Last Admin: 10/09/18 09:41 Dose: 1,000 mg Dextrose/Sodium Chloride (D5-0.45ns) 1,000 mls @ 80 mls/hr IV .[id number] [facility] Stop: 12/06/18 19:29 Last Admin: 10/08/18 16:23 Dose: 80 mls/hr Lactobacillus Rhamnosus (Culturelle 15b) 1 each GT DAILY [facility] Stop: 12/07/18 08:59 Last Admin: 10/09/18 09:41 Dose: 1 each Lactulose (Cephulac) 30 gm PO BID [facility] Stop: 12/07/18 08:59 Last Admin: 10/09/18 09:39 Dose: 30 gm Magnesium Hydroxide (Milk Of Magnesia) 30 ml GT DAILY PRN PRN Reason: Constipation Stop: 12/06/18 19:18 Miscellaneous (Probiotic Screen) 1 ea MC PRN PRN PRN Reason: PROTOCOL Stop: 12/07/18 08:25 Pantoprazole Sodium (Protonix) 40 mg PO DAILY [facility] Stop: 12/07/18 08:59 Last Admin: 10/09/18 09:42 Dose: 40 mg Polyethylene Glycol (Miralax) 17 gm GT DAILY [facility] Stop: 12/07/18 08:59 Last Admin: 10/09/18 09:40 Dose: 17 gm Quetiapine Fumarate (Seroquel) 300 mg GT HS [facility]; Protocol Stop: 12/06/18 22:59 Last Admin: 10/08/18 20:35 Dose: 300 mg Quetiapine Fumarate (Seroquel) 50 mg GT HS [facility]; Protocol Stop: 12/06/18 22:59 Last Admin: 10/08/18 20:35 Dose: 50 mg Sodium Phosphate (Fleet Enema) 135 ml RC DAILY PRN PRN Reason: Constipation Stop: 12/06/18 19:18 Trazodone HCl (Desyrel) 25 mg GT HS [facility]; Protocol Stop: 12/06/18 20:59 Last Admin: 10/08/18 20:35 Dose: 25 mg Valproate Sodium (Depakene) 750 mg GT HS [facility]; Protocol Stop: 12/06/18 22:59 Last Admin: 10/08/18 20:34 Dose: 750 mg Valproate Sodium (Depakene) 625 mg GT DAILY [facility]; Protocol Stop: 12/07/18 08:59 Last Admin: 10/09/18 09:40 Dose: 625 mg Vitamin D (Vitamin D) 400 iu GT DAILY [facility] Stop: 12/07/18 08:59 Last Admin: 10/09/18 09:41 Dose: 400 iu General: Alert, Oriented x3 HEENT: Atraumatic, PERRLA, EOMI Neck: Supple Cardiovascular: Regular rate, Normal S1, Normal S2 Lungs: Clear to auscultation Abdomen: Bowel sounds, Soft, Hepatomegaly - Procedures Procedures: Procedures Procedure Code Date ASSISTANCE WITH RESPIRATORY VENTILATION, 24-96 HRS, CPAP [id number] 11/03/17 CHANGE FEEDING DEVICE IN UP INTEST TRACT, LEASE EXAMINER APPROACH [id number] 09/11/17 CHANGE GASTROSTOMY TUBE 55657 07/06/17 DRAINAGE OF STOMACH WITH DRAINAGE DEVICE, VIA OPENING [id number] 11/03/17 EGD BIOPSY SINGLE/MULTIPLE 78204 09/11/[address] GASTROSTOMY TUBE 86280 02/16/09 EXCISION OF STOMACH, ENDO, DIAGN [id number] 09/11/17 INSERT EMERGENCY AIRWAY 41767 12/21/16 INSERTION OF ENDOTRACHEAL AIRWAY INTO TRACHEA, VIA OPENING [id number] 12/21/16 INSERTION OF INFUSION DEVICE INTO R ATRIUM, PERC APPROACH [id number] 12/21/16 OTHER ENDOSCOPY OF SM INTEST 45.13 02/16/09 REPLACE GASTROSTOMY TUBE 97.02 02/16/09 RESPIRATORY VENTILATION, GREATER THAN 96 CONSECUTIVE HOURS [id number] 12/21/16 VENT MGMT INPAT INIT DAY 89280 12/21/16 VENT MGMT INPAT SUBQ DAY 50436 12/21/16 Assessment/Plan - Assessment Assessment: 1. G tube malfunction 2. Constipation 3. Psych issues -Continue with G tube to feedings, currently tolerating -Give 1 tap water enema to assist with bm; he should be on a daily bowel regimen -Will follow
--- NOTE | 2018-10-09 14:57 | Internal Medicine Prog Note ---
Internal Medicine Subjective - Subjective Patient seen and examined:: with staff, chart reviewed Patient is:: awake, non-verbal, non-interactive, in bed, confused Patient Complaints of:: congestion Per staff patient has:: no adverse event, no episodes of fall, agitated, tolerating meds Internal Medicine Objective - Results Result Diagrams: 10/09/18 05:35 10/09/18 05:35 Recent Labs: Laboratory Last Values WBC 8.6 Th/cmm (4.8-10.8) 10/09/18 05:35 RBC 4.19 Mil/cmm (3.80-5.80) 10/09/18 05:35 Hgb 13.0 gm/dL (12-16) 10/09/18 05:35 Hct 38.4 % (41.0-60) L 10/09/18 05:35 MCV 91.7 fl (80-99) 10/09/18 05:35 MCH 31.0 pg (27.0-31.0) 10/09/18 05:35 MCHC Differential 33.8 pg (28.0-36.0) 10/09/18 05:35 RDW 13.3 % (11.5-20.0) 10/09/18 05:35 Plt Count 245 Th/cmm (150-400) 10/09/18 05:35 MPV 9.1 fl 10/09/18 05:35 Neutrophils % 70.8 % (40.0-80.0) 10/09/18 05:35 Lymphocytes % 16.8 % (20.0-50.0) L 10/09/18 05:35 Monocytes % 9.7 % (2.0-10.0) 10/09/18 05:35 Eosinophils % 2.6 % (0.0-5.0) 10/09/18 05:35 Basophils % 0.1 % (0.0-2.0) 10/09/18 05:35 Sodium 139 mEq/L (136-145) 10/09/18 05:35 Potassium 3.5 mEq/L (3.5-5.1) 10/09/18 05:35 Chloride 105 mEq/L (98-107) 10/09/18 05:35 Carbon Dioxide 27.5 mEq/L (21.0-31.0) 10/09/18 05:35 Anion Gap 10.0 (7.0-16.0) 10/09/18 05:35 BUN 17 mg/dL (7-25) 10/09/18 05:35 Creatinine 0.6 mg/dL (0.7-1.3) L 10/09/18 05:35 Est GFR ( Amer) > 60.0 ml/min (>90) 10/09/18 05:35 Est GFR (Non-Af Amer) > 60.0 ml/min 10/09/18 05:35 BUN/Creatinine Ratio 28.3 10/09/18 05:35 Glucose 99 mg/dL (70-105) 10/09/18 05:35 Calcium 9.1 mg/dL (8.6-10.3) 10/09/18 05:35 Magnesium 2.2 mg/dL (1.9-2.7) 10/09/18 05:35 Total Bilirubin 0.5 mg/dL (0.3-1.0) 10/07/18 18:16 AST 18 U/L (13-39) 10/07/18 18:16 ALT 6 U/L (7-52) L 10/07/18 18:16 Alkaline Phosphatase 98 U/L (34-104) 10/07/18 18:16 Troponin I 0.01 ng/mL (0.01-0.05) 10/07/18 18:16 Total Protein 6.9 gm/dL (6.0-8.3) 10/07/18 18:16 Albumin 3.4 gm/dL (4.2-5.5) L 10/07/18 18:16 Globulin 3.5 gm/dL 10/07/18 18:16 Albumin/Globulin Ratio 1.0 (1.0-1.8) 10/07/18 18:16 - Physical Exam Vitals and I&O: Vital Signs Temp 98.5 F 10/09/18 04:00 Pulse 71 10/09/18 09:42 Resp 18 10/09/18 08:00 BP 128/73 10/09/18 09:42 Pulse Ox 92 10/09/18 07:07 Intake & Output 10/08/18 10/09/18 10/09/18 18:59 06:59 18:59 Intake Total 1000 304 Balance 1000 304 Weight (lbs) 73.164 kg Intake: Intake, IV Amount 1000 D5-0.45NS 1,000 ml @ 80 1000 mls/hr IV .[id number] [facility] Rx #:[id number] Tube Feeding 304 Other: # Voids 2 # Bowel Movements 1 Stool Characteristics Hard Formed Hard Weight Source Bedscale Active Medications: Current Medications Acetaminophen (Tylenol 650mg Supp) 650 mg RC Q4H PRN PRN Reason: Fever >101 Stop: 12/07/18 08:24 Albuterol Sulfate (Albuterol 2.5mg/3ml Neb Ud) 2.5 mg HHN Q4H PRN PRN Reason: Congestion Stop: 12/06/18 19:18 Albuterol/Ipratropium (Duoneb Neb) 3 ml HHN Q4H PRN PRN Reason: Congestion Stop: 12/06/18 19:18 Ascorbic Acid (Vitamin C) 500 mg PO DAILY [facility] Stop: 12/07/18 08:59 Last Admin: 10/09/18 09:41 Dose: 500 mg Atenolol (Tenormin) 25 mg GT DAILY [facility] Stop: 12/07/18 08:59 Last Admin: 10/09/18 09:42 Dose: 25 mg Bisacodyl (Dulcolax 10 Mg Supp) 10 mg RC DAILY PRN PRN Reason: Constipation Stop: 12/06/18 19:18 Calcium Carbonate (Calcium Carb) 600 mg GT QID [facility] Stop: 12/07/18 08:59 Last Admin: 10/09/18 09:41 Dose: 600 mg Dextromethorphan/Quinidine (Nuedexta 20mg-10mg) 1 cap GT BID [facility] Stop: 12/07/18 08:59 Last Admin: 10/09/18 09:42 Dose: 1 cap Fish Oil ([place] 3) 1,000 mg PO DAILY [facility] Stop: 12/07/18 08:59 Last Admin: 10/09/18 09:41 Dose: 1,000 mg Dextrose/Sodium Chloride (D5-0.45ns) 1,000 mls @ 80 mls/hr IV .[id number] [facility] Stop: 12/06/18 19:29 Last Admin: 10/08/18 16:23 Dose: 80 mls/hr Lactobacillus Rhamnosus (Culturelle 15b) 1 each GT DAILY [facility] Stop: 12/07/18 08:59 Last Admin: 10/09/18 09:41 Dose: 1 each Lactulose (Cephulac) 30 gm PO BID [facility] Stop: 12/07/18 08:59 Last Admin: 10/09/18 09:39 Dose: 30 gm Magnesium Hydroxide (Milk Of Magnesia) 30 ml GT DAILY PRN PRN Reason: Constipation Stop: 12/06/18 19:18 Miscellaneous (Probiotic Screen) 1 ea MC PRN PRN PRN Reason: PROTOCOL Stop: 12/07/18 08:25 Pantoprazole Sodium (Protonix) 40 mg PO DAILY [facility] Stop: 12/07/18 08:59 Last Admin: 10/09/18 09:42 Dose: 40 mg Polyethylene Glycol (Miralax) 17 gm GT DAILY [facility] Stop: 12/07/18 08:59 Last Admin: 10/09/18 09:40 Dose: 17 gm Quetiapine Fumarate (Seroquel) 300 mg GT HS [facility]; Protocol Stop: 12/06/18 22:59 Last Admin: 10/08/18 20:35 Dose: 300 mg Quetiapine Fumarate (Seroquel) 50 mg GT HS [facility]; Protocol Stop: 12/06/18 22:59 Last Admin: 10/08/18 20:35 Dose: 50 mg Sodium Phosphate (Fleet Enema) 135 ml RC DAILY PRN PRN Reason: Constipation Stop: 12/06/18 19:18 Trazodone HCl (Desyrel) 25 mg GT HS [facility]; Protocol Stop: 12/06/18 20:59 Last Admin: 10/08/18 20:35 Dose: 25 mg Valproate Sodium (Depakene) 750 mg GT HS [facility]; Protocol Stop: 12/06/18 22:59 Last Admin: 10/08/18 20:34 Dose: 750 mg Valproate Sodium (Depakene) 625 mg GT DAILY [facility]; Protocol Stop: 12/07/18 08:59 Last Admin: 10/09/18 09:40 Dose: 625 mg Vitamin D (Vitamin D) 400 iu GT DAILY [facility] Stop: 12/07/18 08:59 Last Admin: 10/09/18 09:41 Dose: 400 iu General: demented, disheveled HEENT: NC/AT, PERRLA, EOMI Neck: Supple, No JVD, No thyromegaly Lungs: congested, rales, ronchi Cardiovascular: RRR, Normal S1, Normal S2, without murmur Abdomen: soft, non-tender, globular, +GT, positive bowel sound Extremities: excoriation, contracture Neurological: no change, disorganized, unable to follow command - Procedures Procedures: Procedures Procedure Code Date ASSISTANCE WITH RESPIRATORY VENTILATION, 24-96 HRS, CPAP [id number] 11/03/17 CHANGE FEEDING DEVICE IN UP INTEST TRACT, PULP GRINDER FEEDER APPROACH [id number] 10/07/18 CHANGE GASTROSTOMY TUBE 72768 07/06/17 DRAINAGE OF STOMACH WITH DRAINAGE DEVICE, VIA OPENING [id number] 11/03/17 EGD BIOPSY SINGLE/MULTIPLE 88718 09/11/[address] GASTROSTOMY TUBE 41563 02/16/09 EXCISION OF STOMACH, ENDO, DIAGN [id number] 09/11/17 INSERT EMERGENCY AIRWAY 47099 12/21/16 INSERTION OF ENDOTRACHEAL AIRWAY INTO TRACHEA, VIA OPENING [id number] 12/21/16 INSERTION OF INFUSION DEVICE INTO R ATRIUM, PERC APPROACH [id number] 12/21/16 OTHER ENDOSCOPY OF SM INTEST 45.13 02/16/09 REPLACE GASTROSTOMY TUBE 97.02 02/16/09 RESPIRATORY VENTILATION, GREATER THAN 96 CONSECUTIVE HOURS [id number] 12/21/16 VENT MGMT INPAT INIT DAY 96621 12/21/16 VENT MGMT INPAT SUBQ DAY 06022 12/21/16 Internal Medicine Assmt/Plan - Assessment Assessment: ASSESSMENT AND PLAN: Dehydration, malfunctioning G-tube, leukocytosis, renal insufficiency, low albumin, hypertension, psych disorder, mental retardation, bed bound. - Plan Plan: PLAN: We will continue the patient on IV hydration. We will refer the patient to GI. G-tube was replaced in the Emergency Room. It was too small for feeding. He may need to have a bigger G-tube replacement. Continue with current care with followup consult and recommendation.
[2018-10-10 07:06] LABS: FOLIC ACID >20.0 ng/mL (>3.0)
[2018-10-10] MEDS: Fish Oil 1,000 MG SGL PO SCH (08:51)
[2018-10-10] MEDS: Dextromethorphan/Quinidine 20mg/10mg Cap GT SCH ×2 (08:51→16:27)
[2018-10-10] MEDS: Pantoprazole 40 mg EC Tab PO SCH (08:51)
[2018-10-10] MEDS: Lactobacillus Rhamnosus GG 15 Billion CFU CAP.SPRINK GT SCH (08:51)
[2018-10-10] MEDS: POLYETHYLENE GLYCOL 3350 17 GM PACK GT SCH (08:52)
--- NOTE | 2018-10-10 12:13 | GI Progress Note ---
Subjective - Review of Systems Service Date: 10/10/18 Events since last encounter: No events, tolerating tube feeds well Objective - Results Result Diagrams: 10/09/18 05:35 10/09/18 05:35 Recent Labs: Laboratory Last Values WBC 8.6 Th/cmm (4.8-10.8) 10/09/18 05:35 RBC 4.19 Mil/cmm (3.80-5.80) 10/09/18 05:35 Hgb 13.0 gm/dL (12-16) 10/09/18 05:35 Hct 38.4 % (41.0-60) L 10/09/18 05:35 MCV 91.7 fl (80-99) 10/09/18 05:35 MCH 31.0 pg (27.0-31.0) 10/09/18 05:35 MCHC Differential 33.8 pg (28.0-36.0) 10/09/18 05:35 RDW 13.3 % (11.5-20.0) 10/09/18 05:35 Plt Count 245 Th/cmm (150-400) 10/09/18 05:35 MPV 9.1 fl 10/09/18 05:35 Neutrophils % 70.8 % (40.0-80.0) 10/09/18 05:35 Lymphocytes % 16.8 % (20.0-50.0) L 10/09/18 05:35 Monocytes % 9.7 % (2.0-10.0) 10/09/18 05:35 Eosinophils % 2.6 % (0.0-5.0) 10/09/18 05:35 Basophils % 0.1 % (0.0-2.0) 10/09/18 05:35 Sodium 139 mEq/L (136-145) 10/09/18 05:35 Potassium 3.5 mEq/L (3.5-5.1) 10/09/18 05:35 Chloride 105 mEq/L (98-107) 10/09/18 05:35 Carbon Dioxide 27.5 mEq/L (21.0-31.0) 10/09/18 05:35 Anion Gap 10.0 (7.0-16.0) 10/09/18 05:35 BUN 17 mg/dL (7-25) 10/09/18 05:35 Creatinine 0.6 mg/dL (0.7-1.3) L 10/09/18 05:35 Est GFR ( Amer) > 60.0 ml/min (>90) 10/09/18 05:35 Est GFR (Non-Af Amer) > 60.0 ml/min 10/09/18 05:35 BUN/Creatinine Ratio 28.3 10/09/18 05:35 Glucose 99 mg/dL (70-105) 10/09/18 05:35 Calcium 9.1 mg/dL (8.6-10.3) 10/09/18 05:35 Magnesium 2.2 mg/dL (1.9-2.7) 10/09/18 05:35 Total Bilirubin 0.5 mg/dL (0.3-1.0) 10/07/18 18:16 AST 18 U/L (13-39) 10/07/18 18:16 ALT 6 U/L (7-52) L 10/07/18 18:16 Alkaline Phosphatase 98 U/L (34-104) 10/07/18 18:16 Troponin I 0.01 ng/mL (0.01-0.05) 10/07/18 18:16 Total Protein 6.9 gm/dL (6.0-8.3) 10/07/18 18:16 Albumin 3.4 gm/dL (4.2-5.5) L 10/07/18 18:16 Globulin 3.5 gm/dL 10/07/18 18:16 Albumin/Globulin Ratio 1.0 (1.0-1.8) 10/07/18 18:16 Vitamin B12 1188 pg/mL (232-1245) 10/09/18 05:35 Folic Acid >20.0 ng/mL (>3.0) 10/09/18 05:35 TSH 3.58 uIU/ml (0.34-5.60) 10/09/18 05:35 - Physical Exam Vitals and I&O: Vital Signs Temp 96.6 F 10/10/18 08:00 Pulse 77 10/10/18 08:51 Resp 18 10/10/18 08:00 BP 130/66 10/10/18 08:51 Pulse Ox 94 10/10/18 08:00 Intake & Output 10/09/18 10/10/18 10/10/18 18:59 06:59 18:59 Intake Total 1000 Balance 1000 Weight (lbs) 73.028 kg Intake: Oral 900 Other 100 Other: # Voids 2 Stool Characteristics Hard Weight Source Bedscale Active Medications: Current Medications Acetaminophen (Tylenol 650mg Supp) 650 mg RC Q4H PRN PRN Reason: Fever >101 Stop: 12/07/18 08:24 Albuterol Sulfate (Albuterol 2.5mg/3ml Neb Ud) 2.5 mg HHN Q4H PRN PRN Reason: Congestion Stop: 12/06/18 19:18 Albuterol/Ipratropium (Duoneb Neb) 3 ml HHN Q4H PRN PRN Reason: Congestion Stop: 12/06/18 19:18 Ascorbic Acid (Vitamin C) 500 mg PO DAILY [facility] Stop: 12/07/18 08:59 Last Admin: 10/10/18 08:52 Dose: 500 mg Atenolol (Tenormin) 25 mg GT DAILY [facility] Stop: 12/07/18 08:59 Last Admin: 10/10/18 08:51 Dose: 25 mg Bisacodyl (Dulcolax 10 Mg Supp) 10 mg RC DAILY PRN PRN Reason: Constipation Stop: 12/06/18 19:18 Calcium Carbonate (Calcium Carb) 600 mg GT QID [facility] Stop: 12/07/18 08:59 Last Admin: 10/10/18 08:51 Dose: 600 mg Dextromethorphan/Quinidine (Nuedexta 20mg-10mg) 1 cap GT BID [facility] Stop: 12/07/18 08:59 Last Admin: 10/10/18 08:51 Dose: 1 cap Fish Oil ([place] 3) 1,000 mg PO DAILY [facility] Stop: 12/07/18 08:59 Last Admin: 10/10/18 08:51 Dose: 1,000 mg Dextrose/Sodium Chloride (D5-0.45ns) 1,000 mls @ 80 mls/hr IV .[id number] [facility] Stop: 12/06/18 19:29 Last Admin: 10/08/18 16:23 Dose: 80 mls/hr Lactobacillus Rhamnosus (Culturelle 15b) 1 each GT DAILY [facility] Stop: 12/07/18 08:59 Last Admin: 10/10/18 08:51 Dose: 1 each Magnesium Hydroxide (Milk Of Magnesia) 30 ml GT DAILY PRN PRN Reason: Constipation Stop: 12/06/18 19:18 Miscellaneous (Probiotic Screen) 1 ea MC PRN PRN PRN Reason: PROTOCOL Stop: 12/07/18 08:25 Mupirocin (Bactroban Oint) 1 appl NS BID [facility] Stop: 10/14/18 17:01 Last Admin: 10/10/18 08:52 Dose: 1 appl Pantoprazole Sodium (Protonix) 40 mg PO DAILY [facility] Stop: 12/07/18 08:59 Last Admin: 10/10/18 08:51 Dose: 40 mg Polyethylene Glycol (Miralax) 17 gm GT DAILY [facility] Stop: 12/07/18 08:59 Last Admin: 10/10/18 08:52 Dose: 17 gm Quetiapine Fumarate (Seroquel) 300 mg GT HS [facility]; Protocol Stop: 12/06/18 22:59 Last Admin: 10/09/18 20:40 Dose: 300 mg Quetiapine Fumarate (Seroquel) 50 mg GT HS [facility]; Protocol Stop: 12/06/18 22:59 Last Admin: 10/09/18 20:40 Dose: 50 mg Sodium Phosphate (Fleet Enema) 135 ml RC DAILY PRN PRN Reason: Constipation Stop: 12/06/18 19:18 Trazodone HCl (Desyrel) 25 mg GT HS [facility]; Protocol Stop: 12/06/18 20:59 Last Admin: 10/09/18 20:43 Dose: 25 mg Valproate Sodium (Depakene) 750 mg GT HS [facility]; Protocol Stop: 12/06/18 22:59 Last Admin: 10/09/18 20:40 Dose: 750 mg Valproate Sodium (Depakene) 625 mg GT DAILY [facility]; Protocol Stop: 12/07/18 08:59 Last Admin: 10/10/18 08:51 Dose: 625 mg Vitamin D (Vitamin D) 400 iu GT DAILY [facility] Stop: 12/07/18 08:59 Last Admin: 10/10/18 08:51 Dose: 400 iu General: Alert, Oriented x3 HEENT: Atraumatic, PERRLA, EOMI Neck: Supple Cardiovascular: Regular rate, Normal S1, Normal S2 Lungs: Clear to auscultation Abdomen: Bowel sounds, Soft, Hepatomegaly - Procedures Procedures: Procedures Procedure Code Date ASSISTANCE WITH RESPIRATORY VENTILATION, 24-96 HRS, CPAP [id number] 11/03/17 CHANGE FEEDING DEVICE IN UP INTEST TRACT, MANAGER LSW APPROACH [id number] 10/07/18 CHANGE GASTROSTOMY TUBE 57659 07/06/17 DRAINAGE OF STOMACH WITH DRAINAGE DEVICE, VIA OPENING [id number] 11/03/17 EGD BIOPSY SINGLE/MULTIPLE 94191 09/11/[address] GASTROSTOMY TUBE 92221 02/16/09 EXCISION OF STOMACH, ENDO, DIAGN [id number] 09/11/17 INSERT EMERGENCY AIRWAY 96390 12/21/16 INSERTION OF ENDOTRACHEAL AIRWAY INTO TRACHEA, VIA OPENING [id number] 12/21/16 INSERTION OF INFUSION DEVICE INTO R ATRIUM, PERC APPROACH 13P760I 12/21/16 OTHER ENDOSCOPY OF SM INTEST 45.13 02/16/09 REPLACE GASTROSTOMY TUBE 97.02 02/16/09 RESPIRATORY VENTILATION, GREATER THAN 96 CONSECUTIVE HOURS [id number] 12/21/16 VENT MGMT INPAT INIT DAY 52353 12/21/16 VENT MGMT INPAT SUBQ DAY 88173 12/21/16 Assessment/Plan - Assessment Assessment: 1. G tube malfunction 2. Constipation 3. Psych issues -Continue with G tube to feedings, currently tolerating -Give 1 tap water enema to assist with bm; he should be on a daily bowel regimen -Will follow
--- NOTE | 2018-10-10 15:27 | Discharge Summary ---
DATE OF DISCHARGE: 10/10/2018 CHIEF COMPLAINT: Malfunctioning G-tube, unable to replace in the Emergency Room. FINAL DIAGNOSES: Dehydration, malfunctioning G-tube, leukocytosis, renal insufficiency, low albumin, hypertension, mental retardation, psych disorder, and bedbound. HISTORY: This is a 63-year-old male with history of mental retardation, hypertension, psych disorder, bedbound, and dysphagia with G-tube. Apparently, the G-tube came out. The patient able to have ____ feeding. The patient was admitted for further management. PHYSICAL EXAMINATION: VITAL SIGNS: Blood pressure 125/70, respiratory rate 18, pulse rate 63, temperature 97.0. GENERAL: Elderly male, appears stated age. NECK: Supple. LUNGS: Equal breath sounds, a few rhonchi. HEART: Regular rate and rhythm without appreciable murmur. ABDOMEN: Soft, globular. Positive bowel sounds. EXTREMITIES: Positive excoriations. LABORATORY DATA: WBC 11.3, ____. BUN 30 and creatinine 0.6. HOSPITAL COURSE: The patient was admitted to medical floor. Continue IV hydration ____. The patient was referred to Dr. Scott for GI and ____ for wound care. The patient's condition has improved and able to tolerate G-tube feeding now. CONDITION ON DISCHARGE: Fair. DISCHARGE INSTRUCTIONS: The patient is to continue current care. The patient will be discharged to nursing facility with above orders. JOB# [id number]
== END 2018-10-10 18:15 | DRG 393 ==
LOC: ER 17:19 → MSI 19:05
PROVIDERS: ADMIT Internal Medicine; ATTEND Internal Medicine
PROC: 0D20XUZ Change Feeding Device in Upper Intestinal Tract, External Approach (ICD-10-PCS; principal; 2018-10-07)
DX: K94.23 Gastrostomy malfunction (principal); R53.2 Functional quadriplegia; E86.0 Dehydration; F20.9 Schizophrenia, unspecified; F79 Unspecified intellectual disabilities; N18.2 Chronic kidney disease, stage 2 (mild); F03.90 Unspecified dementia, unspecified severity, without behavioral disturbance, psychotic disturbance, mood disturbance, and anxiety; F29 Unspecified psychosis not due to a substance or known physiological condition; K56.41 Fecal impaction; I12.9 Hypertensive chronic kidney disease with stage 1 through stage 4 chronic kidney disease, or unspecified chronic kidney disease; Y83.8 Other surgical procedures as the cause of abnormal reaction of the patient, or of later complication, without mention of misadventure at the time of the procedure; Y92.89 Other specified places as the place of occurrence of the external cause; Z74.01 Bed confinement status
CPT/HCPCS: 36415-UA; 74000-TC; 80048-TC; 80053-TC; 82607-90; 82746-90; 83735-TC; 84443-TC; 84484-TC; 85025-TC; 94760; Z7610

== ENCOUNTER 2018-11-02 18:56 | Inpatient (IN) | payer MEDICARE, MEDICAID ==
--- NOTE | 2018-11-02 19:29 | ED Physician Chart ---
ED Chief Complaint/HPI - Patient Information Date Seen:: 11/02/18 Time Seen:: 19:20 Chief Complaint:: G-tube out History of Present Illness:: Patient's G-tube was noted to be out earlier today. Allergies:: Allergies Allergy/AdvReac Type Severity Reaction Status Date / Time No Known Allergies Allergy Verified 11/02/18 19:03 Vitals:: Vital Signs - 8 hr 11/02/18 19:04 Temp 97.6 F HR 78 RR 18 BP 138/101 O2 Sat % 98 Historian:: EMS Review:: Transfer documents Reviewed ED Review of Systems - Review of Systems General/Constitutional: No fever, No chills Skin: No skin lesions Head: No headache Eyes: No loss of vision ENT: No earache Neck: No neck pain, No swelling Cardio Vascular: No chest pain Pulmonary: No SOB GI: Other (G-tube out) G/U: No dysuria Musculoskeletal: No bone or joint pain Endocrine: No polyuria Psychiatric: Prior psych history Hematopoietic: No bruising Allergic/Immuno: No urticaria Neurological: No syncope ED Past Medical History - Past Medical History Past Medical History: HTN, Other (moderate mental disability; psychosis; dysphagia; anoxic encephalopathy; status post aspiration pneumonia; impulse control disorder; insomnia; gastritis; bipolar disorder pseudo-bulbar effect; cholelithiasis; basal cell carcinoma nose) Family History: Other (unavailable) Social History: Care Facility Surgical History: PEG/GTube Medication: Reviewed Family Medical History - Family Member Mother History Unknown: Yes Ethnicity: Unknown Living Status: Unknown Hx Family Cancer: No Hx Family Coronary Artery Disease: No Hx Family Congestive Heart Failure: No Hx Family Hypertension: No Hx Family Stroke: No Hx Family Diabetes: No Hx Family Seizures: No Hx Family Dementia: No Hx Family AIDS: No Hx Family HIV: Yes Hx Family COPD: No Hx Family Hepatitis: No Hx Family Psychiatric Problems: No Hx Family Tuberculosis: No ED Physical Exam - Physical Examination General/Constitutional: Well-developed, well-nourished, Alert Head: Atraumatic Eyes: Lids, conjuctiva normal, PERRL Skin: No rash Other Skin comments:: 3 cm of erythema around right upper quadrant G-tube stoma ENMT: External ears, nose nl, Nasal exam nl, Lips, teeth, gums nl Neck: No nuchal rigidity Respiratory: Nl effort/Exclusion, Clear to Auscultation Cardio Vascular: RRR GI: No tenderness/rebounding/guarding, No organomegaly Extremities: Normal digits & nails Neuro/Psych: No focal deficits ED Labs/Radiology/EKG Results - Lab Results Results: Abnormal Lab Results 11/02/18 11/02/18 11/02/18 19:27 19:27 19:27 WBC 8.5 RBC 4.60 Hgb 14.0 Hct 42.0 MCV 91.2 MCH 30.5 MCHC Differential 33.4 RDW 13.3 Plt Count 230 MPV 9.1 Neutrophils % 64.8 Lymphocytes % 22.0 Monocytes % 11.7 H Eosinophils % 1.2 Basophils % 0.3 PT 11.0 INR 1.06 PTT (Actin FS) 30.3 Sodium 140 Potassium 4.5 Chloride 102 Carbon Dioxide 30.3 Anion Gap 12.2 BUN 28 H Creatinine 0.7 Est GFR ( Amer) > 60.0 Est GFR (Non-Af Amer) > 60.0 BUN/Creatinine Ratio 40.0 Glucose 78 Calcium 9.4 ED Septic Shock - . Is Septic Shock (SBP<90, OR Lactate>4 mmol\L) present?: No - <6hrs of presentation: Vital Signs: Vital Signs - 8 hr 11/02/18 19:04 Temp 97.6 F HR 78 RR 18 BP 138/101 O2 Sat % 98 ED Reassessment (Disposition) - Reassessment Reassessment Condition:: Unchanged - Diagnosis Diagnosis:: G-tube malfunction; dehydration; abdominal wall cellulitis around the G-tube stoma - Patient Disposition Admitted to:: Med/Surg Spoke to:: Federico Thomas Admitting Medical Physician:: Federico Thomas Condition at Disposition:: Stable, Unchanged
[2018-11-02 19:46] LABS: % BASOPHILS 0.3 % (0.0-2.0); % EOSINOPHILS 1.2 % (0.0-5.0); % MONOCYTES 11.7 % (2.0-10.0); % NEUTROPHILS 64.8 % (40.0-80.0); EOSINOPHILE ABSOLUTE 0.1 Th/cmm (0.1-0.4); LYMPHOCYTE ABSOLUTE 1.9 Th/cmm (1.5-3.0); MEAN CELL VOLUME 91.2 fl (80-99); MEAN CORPUSCULAR HEMOGLOBIN 30.5 pg (27.0-31.0); MEAN CORPUSCULAR HGB CONC 33.4 pg (28.0-36.0); MEAN PLATELET VOLUME 9.1 fl; NEUTROPHILE ABSOLUTE 5.5 Th/cmm (1.8-8.0); PLATELET COUNT 230 Th/cmm (150-400); RED CELL DISTRIBUTION WIDTH 13.3 % (11.5-20.0); WHITE BLOOD COUNT 8.5 Th/cmm (4.8-10.8)
[2018-11-02 20:01] LABS: INR 1.06 (0.5-1.4)
[2018-11-02 20:02] LABS: ANION GAP 12.2 (7.0-16.0); BUN - UREA NITROGEN 28 mg/dL (7-25); CALCIUM SERUM 9.4 mg/dL (8.6-10.3); CARBON DIOXIDE 30.3 mEq/L (21.0-31.0); CHLORIDE 102 mEq/L (98-107); CREATININE - SERUM 0.7 mg/dL (0.7-1.3); GFR AFRICAN-AMERICAN > 60.0 ml/min (>90); GFR NON AFRICAN-AMERICAN > 60.0 ml/min; GLUCOSE 78 mg/dL (70-105); POTASSIUM SERUM 4.5 mEq/L (3.5-5.1); SODIUM SERUM 140 mEq/L (136-145)
[2018-11-02] MEDS ORDERED: Sodium Chloride 0.9% 1,000 ML IV ONE (20:25)
[2018-11-02 22:45] VITALS: BP 117/60
--- NOTE | 2018-11-02 23:11 | History & Physical ---
ADMIT DATE: 11/02/2018 CHIEF COMPLAINT: G-tube actually that get pulled out. HISTORY OF PRESENT ILLNESS: This is a 63-year-old male with history of hypertension, mental retardation, mental disability, dysphagia with G-tube site disorder, admitted from nursing facility secondary to a G-tube apparently getting pulled out ____ putting a Barnett catheter due to ____ sent to the closest ER. The patient was seen by Dr. Esparza and unable to reinsert G-tube in the Emergency Room. PAST MEDICAL HISTORY: As mentioned in the history of present illness. PAST SURGICAL HISTORY: Status post G-tube. ALLERGIES: No known drug allergies. MEDICATIONS: The patient is on multivitamin, vitamin C, col[place]um, Seroquel, trazodone, and Depakote, milk of magnesia, MiraLax. FAMILY HISTORY: Noncontributory. SOCIAL HISTORY: He is a half-way patient, requiring 24-hour total care. REVIEW OF SYSTEMS: This is limited secondary to the patient's current mental state. We will try to obtain more detail review of systems later date by talking to family members also try to get information from nursing staff at [facility] [phone]. PHYSICAL EXAMINATION: VITAL SIGNS: Blood pressure 101/69, respirations 18, pulse 67, temperature 98.0. GENERAL: Elderly male, appears stated age. NECK: Supple. No mass. LUNGS: Equal breath sounds. Few rhonchi. HEART: Regular rate and rhythm without appreciable murmurs. ABDOMEN: Soft, globular with G-tube site has slight erythema. EXTREMITIES: Positive excoriations and atrophy. NEUROLOGIC: Limited. LABORATORY DATA: WBC 8, hemoglobin 14, platelets 230. PT, PTT within normal range. Sodium 140, potassium 4.9, BUN 28, creatinine 0.7. ASSESSMENT AND PLAN: 1. G-tube cellulitis. 2. G-tube malfunction. 3. Mental retardation. 4. Psych disorder. 5. Bedbound. 6. Renal insufficiency. 7. Dehydration. PLAN: We will continue the patient on IV hydration and place the patient on IV antibiotic. GI has been consulted. Placed a call to Dr. Garcia to possibly reinsert a G-tube in the morning. Put NG tube and medication was reconciled. Case was discussed with nursing staff. JOB# [id number]
[2018-11-02] MEDS: D5-0.9%NS 1,000 ML IV SCH (23:38)
[2018-11-02] MEDS: cefTRIAXone 1 GM in Sodium Chloride 0.9% 50 ML IV SCH (23:58)
[2018-11-03] MEDS ORDERED: Non-Formulary Item 1 EA (Omeprazole [Omeprazole] 20 MG) GT SCH (09:00)
[2018-11-03] MEDS: Pantoprazole 40 mg/Packet PO SCH (09:51)
[2018-11-03] MEDS: Dextromethorphan/Quinidine 20mg/10mg Cap GT SCH ×2 (10:13→17:02)
[2018-11-03] MEDS ORDERED: VTE Chemical Prophylaxis Screen/Admission MC PRN (10:15)
--- NOTE | 2018-11-03 11:55 | Diagnostic Imaging Report ---
Portable chest x-ray HISTORY: Cough, nasogastric tube placement The heart size appears somewhat generous. No acute focal bony parenchymal processes. Question minimal right pleural effusion. Nasogastric tube projects over the region of the stomach. IMPRESSION: 1. Nasogastric tube projecting over the stomach 2. Slight pleural reaction about the right costophrenic angle. Minimal pleural effusion cannot be excluded.
[2018-11-03] MEDS: D5-0.9%NS 1,000 ML IV SCH (12:25)
[2018-11-03] MEDS ORDERED: Probiotic Screen MC PRN (14:59)
--- NOTE | 2018-11-03 15:51 | Internal Medicine Prog Note ---
Internal Medicine Subjective - Subjective Patient seen and examined:: with staff, chart reviewed, other (positive ngt) Patient is:: awake, verbal, interactive Patient Complaints of:: congestion, unable to sleep Per staff patient has:: no adverse event, no episodes of fall, gagging, agitated , combative, noncompliant Internal Medicine Objective - Results Result Diagrams: 11/02/18 1911/02/18 Recent Labs: Laboratory Last Values WBC 8.5 Th/cmm (4.8-10.8) 11/02/18 RBC 4.60 Mil/cmm (3.80-5.80) 11/02/18 Hgb 14.0 gm/dL (12-16) 11/02/18 Hct 42.0 % (41.0-60) 11/02/18 MCV 91.2 fl (80-99) 11/02/18 MCH 30.5 pg (27.0-31.0) 11/02/18 MCHC Differential 33.4 pg (28.0-36.0) 11/02/18 RDW 13.3 % (11.5-20.0) 11/02/18 Plt Count 230 Th/cmm (150-400) 11/02/18 MPV 9.1 fl 11/02/18 Neutrophils % 64.8 % (40.0-80.0) 11/02/18 Lymphocytes % 22.0 % (20.0-50.0) 11/02/18 Monocytes % 11.7 % (2.0-10.0) H 11/02/18 Eosinophils % 1.2 % (0.0-5.0) 11/02/18 Basophils % 0.3 % (0.0-2.0) 11/02/18 PT 11.0 SECONDS (9.5-11.5) 11/02/18 INR 1.06 (0.5-1.4) 11/02/18 PTT (Actin FS) 30.3 SECONDS (26.0-38.0) 11/02/18 Sodium 140 mEq/L (136-145) 11/02/18 19:27 Potassium 4.5 mEq/L (3.5-5.1) 11/02/18 19:27 Chloride 102 mEq/L (98-107) 11/02/18 19:27 Carbon Dioxide 30.3 mEq/L (21.0-31.0) 11/02/18 19:27 Anion Gap 12.2 (7.0-16.0) 11/02/18 19:27 BUN 28 mg/dL (7-25) H 11/02/18 19:27 Creatinine 0.7 mg/dL (0.7-1.3) 11/02/18 19:27 Est GFR ( Amer) > 60.0 ml/min (>90) 11/02/18 19:27 Est GFR (Non-Af Amer) > 60.0 ml/min 11/02/18 19:27 BUN/Creatinine Ratio 40.0 11/02/18 19:27 Glucose 78 mg/dL (70-105) 11/02/18 19:27 POC Glucose 87 MG/DL (70 - 105) 11/02/18 21:53 Calcium 9.4 mg/dL (8.6-10.3) 11/02/18 19:27 - Physical Exam Vitals and I&O: Vital Signs Temp 98 F 11/03/18 12:00 Pulse 72 11/03/18 12:00 Resp 18 11/03/18 12:00 BP 119/61 11/03/18 12:00 Pulse Ox 97 11/03/18 12:00 Intake & Output 11/02/18 11/03/18 11/03/18 18:59 06:59 18:59 Intake Total 607.333 442.667 Balance 607.333 442.667 Weight (lbs) 72.291 kg 72.291 kg Intake: Intake, IV Amount 607.333 442.667 D5-0.9%Ns 1,000 ml @ 80 557.333 442.667 mls/hr IV .[id number] [facility] Rx #:[id number] cefTRIAXone 1 gm In 50 Sodium Chloride 0.9% 50 ml @ 100 mls/hr IV Q24HR [facility] Rx#:[id number] Other: # Voids 3 Weight Source Bedscale Bedscale Active Medications: Current Medications Acetaminophen (Tylenol 650mg Supp) 650 mg RC Q4H PRN PRN Reason: Pain or Fever >101 Stop: 01/01/19 22:35 Albuterol/Ipratropium (Duoneb Neb) 3 ml HHN Q4HRT PRN PRN Reason: Congestion Stop: 01/01/19 22:35 Atenolol (Tenormin) 25 mg GT DAILY [facility] Stop: 01/02/19 08:59 Last Admin: 11/03/18 10:12 Dose: Not Given Dextromethorphan/Quinidine (Nuedexta 20mg-10mg) 1 cap GT BID [facility] Stop: 01/02/19 08:59 Last Admin: 11/03/18 10:13 Dose: Not Given Heparin Sodium (Porcine) (Heparin) 5,000 units SUBQ Q12HR [facility] Stop: 01/02/19 20:59 Dextrose/Sodium Chloride (D5-0.9%Ns) 1,000 mls @ 80 mls/hr IV .[id number] [facility] Stop: 01/01/19 22:44 Last Admin: 11/03/18 12:25 Dose: 80 mls/hr Ceftriaxone Sodium 1 gm/ (Sodium Chloride) 50 mls @ 100 mls/hr IV Q24HR [facility] Stop: 01/01/19 22:59 Last Infusion: 11/03/18 00:35 Dose: Infused Lactobacillus Rhamnosus (Culturelle 15b) 1 each PO DAILY [facility] Stop: 01/02/19 15:59 Lorazepam (Ativan) 0.5 mg IV Q4H PRN; Protocol PRN Reason: Agitation Stop: 01/01/19 22:39 Miscellaneous (Vte Chemical Prophylaxis Screen/ Admission) 1 ea MC PRN PRN PRN Reason: PROTOCOL Stop: 01/02/19 10:14 Miscellaneous (Probiotic Screen) 1 ea MC PRN PRN PRN Reason: PROTOCOL Stop: 01/02/19 14:58 Ondansetron HCl (Zofran) 4 mg IV Q8H PRN PRN Reason: Nausea / Vomiting Stop: 01/01/19 22:37 Pantoprazole Sodium (Protonix) 40 mg PO QDAC [facility] Stop: 01/02/19 07:29 Last Admin: 11/03/18 09:51 Dose: Not Given Quetiapine Fumarate (Seroquel) 300 mg GT HS [facility]; Protocol Stop: 01/02/19 20:59 Quetiapine Fumarate (Seroquel) 50 mg GT HS [facility]; Protocol Stop: 01/02/19 20:59 Trazodone HCl (Desyrel) 25 mg GT HS [facility]; Protocol Stop: 01/02/19 20:59 Valproate Sodium (Depakene) 750 mg GT HS [facility]; Protocol Stop: 01/02/19 20:59 Valproate Sodium (Depakene) 625 mg GT DAILY [facility]; Protocol Stop: 01/02/19 08:59 Last Admin: 11/03/18 10:13 Dose: Not Given General: congested, demented HEENT: NC/AT, PERRLA, EOMI Neck: Supple, No JVD, deformity Lungs: congested, rales, ronchi Cardiovascular: RRR, Normal S1, Normal S2 Abdomen: soft, non-tender, +GT - redness Extremities: excoriation, contracture Neurological: no change, disorganized, unable to follow command, bedbound - Procedures Procedures: Procedures Procedure Code Date ASSISTANCE WITH RESPIRATORY VENTILATION, 24-96 HRS, CPAP [id number] 11/03/17 CHANGE FEEDING DEVICE IN UP INTEST TRACT, TRACK MAN APPROACH [id number] 10/07/18 CHANGE GASTROSTOMY TUBE 57477 07/06/17 DRAINAGE OF STOMACH WITH DRAINAGE DEVICE, VIA OPENING [id number] 11/03/17 EGD BIOPSY SINGLE/MULTIPLE 10501 09/11/[address] GASTROSTOMY TUBE 73384 02/16/09 EXCISION OF STOMACH, ENDO, DIAGN [id number] 09/11/17 INSERT EMERGENCY AIRWAY 91436 12/21/16 INSERTION OF ENDOTRACHEAL AIRWAY INTO TRACHEA, VIA OPENING [id number] 12/21/16 INSERTION OF INFUSION DEVICE INTO R ATRIUM, PERC APPROACH [id number] 12/21/16 OTHER ENDOSCOPY OF SM INTEST 45.13 02/16/09 REPLACE GASTROSTOMY TUBE 97.02 02/16/09 RESPIRATORY VENTILATION, GREATER THAN 96 CONSECUTIVE HOURS [id number] 12/21/16 VENT MGMT INPAT INIT DAY 96183 12/21/16 VENT MGMT INPAT SUBQ DAY 92819 12/21/16 Internal Medicine Assmt/Plan - Assessment Assessment: ASSESSMENT AND PLAN: 1. G-tube cellulitis. 2. G-tube malfunction. 3. Mental retardation. 4. Psych disorder. 5. Bedbound. 6. Renal insufficiency. 7. Dehydration. - Plan Plan: PLAN: We will continue the patient on IV hydration and place the patient on IV antibiotic. GI has been consulted. Placed a call to Dr. Garcia to possibly reinsert a G-tube in the morning. Put NG tube and medication was reconciled. Case was discussed with nursing staff. Nutritional Asmnt/Malnutr-PDOC - Dietary Evaluation Malnutrition Findings (Please click <Entered> for more info): Nutritional Asmnt/Malnutrition Start: 11/03/18 14: 26 Text: Status: Active Freq: Protocol: Document 11/03/18 14:27 [email or web address] (Rec: 11/03/18 14:42 [email or web address]) Nutritional Asmnt/Malnutrition Patient General Information Nutritional Screening High Risk Diagnosis G tube malfunction, cellulitis Pertinent Medical Hx/Surgical Hx HTN, mental retardation, mental disability, dysphagia w / g tube site disorder Subjective Information Pt was seen in bed at time of visit. Pt was NPO with NG tube in place. MD has placed order for Jevity 1.2 at 75ml/hr x 16hrs, on at 4pm and off at 8am. Current Diet Order/ Nutrition Support Jevity 1.2 75ml/hr x 16hrs Pertinent Medications d5-0.45ns, heparin, zofran, protonix, seroquel Pertinent Labs 11/02 BUN 28 Nutritional Hx/Data Height 1.68 m Height (Calculated Centimeters) 167.6 Current Weight (lbs) 72.121 kg Weight (Calculated Kilograms) 72.1 Weight (Calculated Grams) 73765.2 [place] Body Weight 142 Body Mass Index (BMI) 25.7 Weight Status Overweight GI Symptoms GI Symptoms None Last BM not indicated Difficult in: None Food Allergies No Skin Integrity/Comment: anterior abdomen laceration, scar to lower anterior abdomen samantha 16 Estimated Nutritional Goals BEE in Kcals: Adj wt of IBW Calories/Kcals/Kg 25-30 Kcals Calculated 8795-4719 Protein: Adj wt of IBW Protein g/k.8-1 Protein Calculated 53-66 Nutritional Problem No current Nutrition Prob Problem N/A Malnutrition Alert Is there a minimum of two criteria No selected? Query Text:Check all the applicable criteria. A minimum of two criteria are recommended for diagnosis of either severe or non-severe malnutrition. Malnutrition Related to Morbid Obesity Malnutrition related to morbid obesity No Intervention/Recommendation Comments 1. Continue with Jevity 1.2 75ml/hr x16hrs. It provides 1440kcal, 66g protein, 968ml free water, meeting 86% of calorie needs and 100% of protein needs. 2. Monitor TF rate, tolerance, wt, skin integrity and labs 3. F/U as moderate risk in 3-5 days Expected Outcomes/Goals Expected Outcomes/Goals 1. Pt to meet at least 90% of nutritional needs via nutrition support with tolerance 2. Wt stability, skin to remain intact, labs to approach WNL.
[2018-11-03] MEDS: Lactobacillus Rhamnosus GG 15 Billion CFU CAP.SPRINK PO SCH (17:02)
[2018-11-03] MEDS: cefTRIAXone 1 GM in Sodium Chloride 0.9% 50 ML IV SCH (23:33)
[2018-11-04] MEDS: D5-0.9%NS 1,000 ML IV SCH ×2 (00:46→14:11)
[2018-11-04] MEDS: Pantoprazole 40 mg/Packet PO SCH (06:59)
[2018-11-04 07:08] LABS: % BASOPHILS 0.5 % (0.0-2.0); % EOSINOPHILS 0.4 % (0.0-5.0); % LYMPHOCYTES 10.8 % (20.0-50.0); % MONOCYTES 11.1 % (2.0-10.0); % NEUTROPHILS 77.2 % (40.0-80.0); BASOPHILE ABSOLUTE 0.1 Th/cumm (0-0.2); EOSINOPHILE ABSOLUTE 0.1 Th/cmm (0.1-0.4); HEMATOCRIT 35.9 % (41.0-60); HEMOGLOBIN 12.4 gm/dL (12-16); LYMPHOCYTE ABSOLUTE 1.6 Th/cmm (1.5-3.0); MEAN CELL VOLUME 91.6 fl (80-99); MEAN CORPUSCULAR HEMOGLOBIN 31.7 pg (27.0-31.0); MEAN CORPUSCULAR HGB CONC 34.6 pg (28.0-36.0); MEAN PLATELET VOLUME 11.1 fl; MONOCYTE ABSOLUTE 1.6 Th/cmm (0.3-1.0); NEUTROPHILE ABSOLUTE 11.3 Th/cmm (1.8-8.0); PLATELET COUNT 160 Th/cmm (150-400); RED BLOOD COUNT 3.92 Mil/cmm (3.80-5.80); RED CELL DISTRIBUTION WIDTH 13.2 % (11.5-20.0); WHITE BLOOD COUNT 14.7 Th/cmm (4.8-10.8)
[2018-11-04 07:16] LABS: ALBUMIN 2.9 gm/dL (4.2-5.5); ALKALINE PHOSPHATASE 86 U/L (34-104); ANION GAP 13.1 (7.0-16.0); BILIRUBIN,TOTAL 0.4 mg/dL (0.3-1.0); BUN - UREA NITROGEN 16 mg/dL (7-25); CALCIUM SERUM 8.7 mg/dL (8.6-10.3); CARBON DIOXIDE 23.5 mEq/L (21.0-31.0); CHLORIDE 106 mEq/L (98-107); CREATININE - SERUM 0.6 mg/dL (0.7-1.3); GFR AFRICAN-AMERICAN > 60.0 ml/min (>90); GFR NON AFRICAN-AMERICAN > 60.0 ml/min; GLUCOSE 129 mg/dL (70-105); MAGNESIUM 1.9 mg/dL (1.9-2.7); POTASSIUM SERUM 3.6 mEq/L (3.5-5.1); SGOT 17 U/L (13-39); SGPT/ALT 7 U/L (7-52); SODIUM SERUM 139 mEq/L (136-145); TOTAL PROTEIN,SERUM 5.8 gm/dL (6.0-8.3)
--- NOTE | 2018-11-04 07:27 | Consultation ---
DATE OF CONSULTATION: 11/03/2018 INPATIENT GASTROINTESTINAL CONSULTATION REFERRING PHYSICIAN: Dr. Thomas. REASON FOR CONSULTATION: Malfunctioning G-tube and dysphagia. HISTORY OF PRESENT ILLNESS: A 63-year-old male with mental retardation, has history of dysphagia, has a G-tube, but apparently it was pulled out and they were unable to replace it with a Barnett tube. The patient came to the hospital, but Emergency Room physician could not reinsert it, therefore, GI was consulted. The patient is otherwise a poor historian. PAST MEDICAL HISTORY: Hypertension, mental retardation, dysphagia. PAST SURGICAL HISTORY: G-tube placement. FAMILY HISTORY: Noncontributory. SOCIAL HISTORY: No tobacco, alcohol, or IV drug usage. ALLERGIES: None. CURRENT MEDICATIONS: Tylenol, Tenormin, ceftriaxone, heparin, Ativan, Zofran, Protonix, Seroquel, Desyrel, Depakote. REVIEW OF SYSTEMS: Unobtainable. PHYSICAL EXAMINATION: VITAL SIGNS: Temperature 97.6, breathing 18, pulse 67, blood pressure 129/55, satting 97%. GENERAL: In no apparent distress. EYES: Anicteric. Normal conjunctivae. HEENT: Normocephalic, atraumatic. Moist mucous membranes. NECK: Soft, supple. CHEST: Clear. No effort. CARDIOVASCULAR: Regular rate and rhythm. ABDOMEN: Soft, nontender, nondistended with a gastrocutaneous fistula site that seems to be closed in the right upper quadrant. SKIN: Warm, dry. EXTREMITIES: Reveal no cyanosis. PSYCHOLOGICAL: Awake. LABORATORY DATA: Show white count 8.5, hemoglobin 14, platelets 230. INR 1.06. IMPRESSION: A 63-year-old male with dysphagia, malfunctioning G-tube that was pulled out by the patient. Hole has closed and therefore it could not be replaced. At bedside, the patient will likely need EGD and PEG. PLAN: 1. Continue antibiotics. 2. Continue supportive care. 3. EGD, PEG to be done when consent has been obtained. 4. Nurses have tried to get a hold of the conservator, but have not heard back. Thank you for allowing me to participate. Please call me if any questions. JOB# [id number]
--- NOTE | 2018-11-04 07:44 | GI Progress Note ---
Subjective - Review of Systems Subjective: NO EVENTS COLBY NGT Objective - Results Result Diagrams: 11/04/18 06:06 11/04/18 06:06 Recent Labs: Laboratory Last Values WBC 14.7 Th/cmm (4.8-10.8) H 11/04/18 06:06 RBC 3.92 Mil/cmm (3.80-5.80) 11/04/18 06:06 Hgb 12.4 gm/dL (12-16) 11/04/18 06:06 Hct 35.9 % (41.0-60) L 11/04/18 06:06 MCV 91.6 fl (80-99) 11/04/18 06:06 MCH 31.7 pg (27.0-31.0) H 11/04/18 06:06 MCHC Differential 34.6 pg (28.0-36.0) 11/04/18 06:06 RDW 13.2 % (11.5-20.0) 11/04/18 06:06 Plt Count 160 Th/cmm (150-400) 11/04/18 06:06 MPV 11.1 fl 11/04/18 06:06 Neutrophils % 77.2 % (40.0-80.0) 11/04/18 06:06 Lymphocytes % 10.8 % (20.0-50.0) L 11/04/18 06:06 Monocytes % 11.1 % (2.0-10.0) H 11/04/18 06:06 Eosinophils % 0.4 % (0.0-5.0) 11/04/18 06:06 Basophils % 0.5 % (0.0-2.0) 11/04/18 06:06 PT 11.0 SECONDS (9.5-11.5) 11/02/18 19:27 INR 1.06 (0.5-1.4) 11/02/18 19:27 PTT (Actin FS) 30.3 SECONDS (26.0-38.0) 11/02/18 19:27 Sodium 139 mEq/L (136-145) 11/04/18 06:06 Potassium 3.6 mEq/L (3.5-5.1) 11/04/18 06:06 Chloride 106 mEq/L (98-107) 11/04/18 06:06 Carbon Dioxide 23.5 mEq/L (21.0-31.0) 11/04/18 06:06 Anion Gap 13.1 (7.0-16.0) 11/04/18 06:06 BUN 16 mg/dL (7-25) 11/04/18 06:06 Creatinine 0.6 mg/dL (0.7-1.3) L 11/04/18 06:06 Est GFR ( Amer) > 60.0 ml/min (>90) 11/04/18 06:06 Est GFR (Non-Af Amer) > 60.0 ml/min 11/04/18 06:06 BUN/Creatinine Ratio 26.7 11/04/18 06:06 Glucose 129 mg/dL (70-105) H 11/04/18 06:06 POC Glucose 87 MG/DL (70 - 105) 11/02/18 21:53 Calcium 8.7 mg/dL (8.6-10.3) 11/04/18 06:06 Magnesium 1.9 mg/dL (1.9-2.7) 11/04/18 06:06 Total Bilirubin 0.4 mg/dL (0.3-1.0) 11/04/18 06:06 AST 17 U/L (13-39) 11/04/18 06:06 ALT 7 U/L (7-52) 11/04/18 06:06 Alkaline Phosphatase 86 U/L (34-104) 11/04/18 06:06 Ammonia 66 umol/L (16-53) H 11/04/18 06:06 B-Natriuretic Peptide 85.5 pg/mL (5.0-100.0) 11/04/18 06:06 Total Protein 5.8 gm/dL (6.0-8.3) L 11/04/18 06:06 Albumin 2.9 gm/dL (4.2-5.5) L 11/04/18 06:06 Globulin 2.9 gm/dL 11/04/18 06:06 Albumin/Globulin Ratio 1.0 (1.0-1.8) 11/04/18 06:06 - Physical Exam Vitals and I&O: Vital Signs Temp 98.1 F 11/04/18 04:00 Pulse 79 11/04/18 04:00 Resp 19 11/04/18 04:00 BP 93/56 11/04/18 04:00 Pulse Ox 94 11/04/18 04:00 Intake & Output 11/03/18 11/04/18 11/04/18 18:59 06:59 18:59 Intake Total 989.535 7830.333 Balance 519.832 4931.333 Weight (lbs) 72.291 kg 74.106 kg Intake: Intake, IV Amount 432.945 9062.333 D5-0.9%Ns 1,000 ml @ 80 201.317 2961.333 mls/hr IV .[id number] [facility] Rx #:[id number] cefTRIAXone 1 gm In 50 Sodium Chloride 0.9% 50 ml @ 100 mls/hr IV Q24HR [facility] Rx#:[id number] Tube Feeding 665 Other: # Voids 3 3 Weight Source Bedscale Bedscale Active Medications: Current Medications Acetaminophen (Tylenol 650mg Supp) 650 mg RC Q4H PRN PRN Reason: Pain or Fever >101 Stop: 01/01/19 22:35 Albuterol/Ipratropium (Duoneb Neb) 3 ml HHN Q4HRT PRN PRN Reason: Congestion Stop: 01/01/19 22:35 Atenolol (Tenormin) 25 mg GT DAILY [facility] Stop: 01/02/19 08:59 Last Admin: 11/03/18 10:12 Dose: Not Given Dextromethorphan/Quinidine (Nuedexta 20mg-10mg) 1 cap GT BID [facility] Stop: 01/02/19 08:59 Last Admin: 11/03/18 17:02 Dose: 1 cap Heparin Sodium (Porcine) (Heparin) 5,000 units SUBQ Q12HR [facility] Stop: 01/02/19 20:59 Last Admin: 11/03/18 20:44 Dose: 5,000 units Dextrose/Sodium Chloride (D5-0.9%Ns) 1,000 mls @ 80 mls/hr IV .[id number] [facility] Stop: 01/01/19 22:44 Last Infusion: 11/04/18 06:20 Dose: 80 mls/hr Ceftriaxone Sodium 1 gm/ (Sodium Chloride) 50 mls @ 100 mls/hr IV Q24HR [facility] Stop: 01/01/19 22:59 Last Infusion: 11/04/18 00:07 Dose: Infused Lactobacillus Rhamnosus (Culturelle 15b) 1 each PO DAILY [facility] Stop: 01/02/19 15:59 Last Admin: 11/03/18 17:02 Dose: 1 each Lorazepam (Ativan) 0.5 mg IV Q4H PRN; Protocol PRN Reason: Agitation Stop: 01/01/19 22:39 Miscellaneous (Vte Chemical Prophylaxis Screen/ Admission) 1 ea PRN PRN PRN Reason: PROTOCOL Stop: 01/02/19 10:14 Miscellaneous (Probiotic Screen) 1 ea PRN PRN PRN Reason: PROTOCOL Stop: 01/02/19 14:58 Ondansetron HCl (Zofran) 4 mg IV Q8H PRN PRN Reason: Nausea / Vomiting Stop: 01/01/19 22:37 Pantoprazole Sodium (Protonix) 40 mg PO QDAC [facility] Stop: 01/02/19 07:29 Last Admin: 11/04/18 06:59 Dose: 40 mg Quetiapine Fumarate (Seroquel) 300 mg GT HS [facility]; Protocol Stop: 01/02/19 20:59 Last Admin: 11/03/18 20:43 Dose: 300 mg Quetiapine Fumarate (Seroquel) 50 mg GT HS [facility]; Protocol Stop: 01/02/19 20:59 Last Admin: 11/03/18 20:43 Dose: 50 mg Trazodone HCl (Desyrel) 25 mg GT HS [facility]; Protocol Stop: 01/02/19 20:59 Last Admin: 11/03/18 20:43 Dose: 25 mg Valproate Sodium (Depakene) 750 mg GT HS [facility]; Protocol Stop: 01/02/19 20:59 Last Admin: 11/03/18 20:43 Dose: 750 mg Valproate Sodium (Depakene) 625 mg GT DAILY [facility]; Protocol Stop: 01/02/19 08:59 Last Admin: 11/03/18 10:13 Dose: Not Given - Procedures Procedures: Procedures Procedure Code Date ASSISTANCE WITH RESPIRATORY VENTILATION, 24-96 HRS, CPAP [id number] 11/03/17 CHANGE FEEDING DEVICE IN UP INTEST TRACT, PRODUCT MANAGEMENT SPECIALIST APPROACH [id number] 10/07/18 CHANGE GASTROSTOMY TUBE 48996 07/06/17 DRAINAGE OF STOMACH WITH DRAINAGE DEVICE, VIA OPENING [id number] 11/03/17 EGD BIOPSY SINGLE/MULTIPLE 54017 09/11/[address] GASTROSTOMY TUBE 43121 02/16/09 EXCISION OF STOMACH, ENDO, DIAGN [id number] 09/11/17 INSERT EMERGENCY AIRWAY 74233 12/21/16 INSERTION OF ENDOTRACHEAL AIRWAY INTO TRACHEA, VIA OPENING [id number] 12/21/16 INSERTION OF INFUSION DEVICE INTO R ATRIUM, PERC APPROACH [id number] 12/21/16 OTHER ENDOSCOPY OF SM INTEST 45.13 02/16/09 REPLACE GASTROSTOMY TUBE 97.02 02/16/09 RESPIRATORY VENTILATION, GREATER THAN 96 CONSECUTIVE HOURS [id number] 12/21/16 VENT MGMT INPAT INIT DAY 46392 12/21/16 VENT MGMT INPAT SUBQ DAY 76720 12/21/16 Assessment/Plan - Assessment Assessment: 63 YO MALE WITH MALFUNCTION G TUBE/PULLED OUT AND DYSPHAGIA HAS NGT AND IS COLBY TUBE FEEDS 1.PEG WHEN CONSERVATOR GIVES CONSENT 2.CONT NGT FOR NOW
[2018-11-04] MEDS: Dextromethorphan/Quinidine 20mg/10mg Cap GT SCH ×2 (08:23→16:38)
[2018-11-04] MEDS: Lactobacillus Rhamnosus GG 15 Billion CFU CAP.SPRINK PO SCH (08:23)
--- NOTE | 2018-11-04 11:10 | Internal Medicine Prog Note ---
Internal Medicine Subjective - Subjective Service Date: 11/04/18 Patient is:: awake, verbal, interactive Patient Complaints of:: congestion, unable to sleep Per staff patient has:: no adverse event, no episodes of fall, gagging, agitated , combative, noncompliant Internal Medicine Objective - Results Result Diagrams: 11/04/18 06:06 11/04/18 06:06 Recent Labs: Laboratory Last Values WBC 14.7 Th/cmm (4.8-10.8) H 11/04/18 06:06 RBC 3.92 Mil/cmm (3.80-5.80) 11/04/18 06:06 Hgb 12.4 gm/dL (12-16) 11/04/18 06:06 Hct 35.9 % (41.0-60) L 11/04/18 06:06 MCV 91.6 fl (80-99) 11/04/18 06:06 MCH 31.7 pg (27.0-31.0) H 11/04/18 06:06 MCHC Differential 34.6 pg (28.0-36.0) 11/04/18 06:06 RDW 13.2 % (11.5-20.0) 11/04/18 06:06 Plt Count 160 Th/cmm (150-400) 11/04/18 06:06 MPV 11.1 fl 11/04/18 06:06 Neutrophils % 77.2 % (40.0-80.0) 11/04/18 06:06 Lymphocytes % 10.8 % (20.0-50.0) L 11/04/18 06:06 Monocytes % 11.1 % (2.0-10.0) H 11/04/18 06:06 Eosinophils % 0.4 % (0.0-5.0) 11/04/18 06:06 Basophils % 0.5 % (0.0-2.0) 11/04/18 06:06 PT 11.0 SECONDS (9.5-11.5) 11/02/18 19:27 INR 1.06 (0.5-1.4) 11/02/18 19:27 PTT (Actin FS) 30.3 SECONDS (26.0-38.0) 11/02/18 19:27 Sodium 139 mEq/L (136-145) 11/04/18 06:06 Potassium 3.6 mEq/L (3.5-5.1) 11/04/18 06:06 Chloride 106 mEq/L (98-107) 11/04/18 06:06 Carbon Dioxide 23.5 mEq/L (21.0-31.0) 11/04/18 06:06 Anion Gap 13.1 (7.0-16.0) 11/04/18 06:06 BUN 16 mg/dL (7-25) 11/04/18 06:06 Creatinine 0.6 mg/dL (0.7-1.3) L 11/04/18 06:06 Est GFR ( Amer) > 60.0 ml/min (>90) 11/04/18 06:06 Est GFR (Non-Af Amer) > 60.0 ml/min 11/04/18 06:06 BUN/Creatinine Ratio 26.7 11/04/18 06:06 Glucose 129 mg/dL (70-105) H 11/04/18 06:06 POC Glucose 87 MG/DL (70 - 105) 11/02/18 21:53 Calcium 8.7 mg/dL (8.6-10.3) 11/04/18 06:06 Magnesium 1.9 mg/dL (1.9-2.7) 11/04/18 06:06 Total Bilirubin 0.4 mg/dL (0.3-1.0) 11/04/18 06:06 AST 17 U/L (13-39) 11/04/18 06:06 ALT 7 U/L (7-52) 11/04/18 06:06 Alkaline Phosphatase 86 U/L (34-104) 11/04/18 06:06 Ammonia 66 umol/L (16-53) H 11/04/18 06:06 B-Natriuretic Peptide 85.5 pg/mL (5.0-100.0) 11/04/18 06:06 Total Protein 5.8 gm/dL (6.0-8.3) L 11/04/18 06:06 Albumin 2.9 gm/dL (4.2-5.5) L 11/04/18 06:06 Globulin 2.9 gm/dL 11/04/18 06:06 Albumin/Globulin Ratio 1.0 (1.0-1.8) 11/04/18 06:06 - Physical Exam Vitals and I&O: Vital Signs Temp 97.6 F 11/04/18 07:54 Pulse 79 11/04/18 08:23 Resp 18 11/04/18 08:00 BP 116/72 11/04/18 08:23 Pulse Ox 93 11/04/18 07:54 Intake & Output 11/03/18 11/04/18 11/04/18 18:59 06:59 18:59 Intake Total 816.162 2790.333 Balance 487.529 1288.333 Weight (lbs) 159 lb 6 oz 163 lb 6 oz Intake: Intake, IV Amount 355.120 4442.333 D5-0.9%Ns 1,000 ml @ 80 185.103 9754.333 mls/hr IV .[id number] [facility] Rx #:[id number] cefTRIAXone 1 gm In 50 Sodium Chloride 0.9% 50 ml @ 100 mls/hr IV Q24HR [facility] Rx#:[id number] Tube Feeding 665 Other: # Voids 3 3 Weight Source Bedscale Bedscale Active Medications: Current Medications Acetaminophen (Tylenol 650mg Supp) 650 mg RC Q4H PRN PRN Reason: Pain or Fever >101 Stop: 01/01/19 22:35 Albuterol/Ipratropium (Duoneb Neb) 3 ml HHN Q4HRT PRN PRN Reason: Congestion Stop: 01/01/19 22:35 Atenolol (Tenormin) 25 mg GT DAILY [facility]UEL Stop: 01/02/19 08:59 Last Admin: 11/04/18 08:23 Dose: 25 mg Dextromethorphan/Quinidine (Nuedexta 20mg-10mg) 1 cap GT BID [facility] Stop: 01/02/19 08:59 Last Admin: 11/04/18 08:23 Dose: 1 cap Heparin Sodium (Porcine) (Heparin) 5,000 units SUBQ Q12HR [facility] Stop: 01/02/19 20:59 Last Admin: 11/04/18 08:24 Dose: 5,000 units Dextrose/Sodium Chloride (D5-0.9%Ns) 1,000 mls @ 80 mls/hr IV .[id number] [facility] Stop: 01/01/19 22:44 Last Infusion: 11/04/18 06:20 Dose: 80 mls/hr Ceftriaxone Sodium 1 gm/ (Sodium Chloride) 50 mls @ 100 mls/hr IV Q24HR [facility] Stop: 01/01/19 22:59 Last Infusion: 11/04/18 00:07 Dose: Infused Lactobacillus Rhamnosus (Culturelle 15b) 1 each PO DAILY [facility] MANUEL Stop: 01/02/19 15:59 Last Admin: 11/04/18 08:23 Dose: 1 each Lorazepam (Ativan) 0.5 mg IV Q4H PRN; Protocol PRN Reason: Agitation Stop: 01/01/19 22:39 Miscellaneous (Vte Chemical Prophylaxis Screen/ Admission) 1 ea PRN PRN PRN Reason: PROTOCOL Stop: 01/02/19 10:14 Miscellaneous (Probiotic Screen) 1 ea PRN PRN PRN Reason: PROTOCOL Stop: 01/02/19 14:58 Ondansetron HCl (Zofran) 4 mg IV Q8H PRN PRN Reason: Nausea / Vomiting Stop: 01/01/19 22:37 Pantoprazole Sodium (Protonix) 40 mg PO QDAC [facility]UEL Stop: 01/02/19 07:29 Last Admin: 11/04/18 06:59 Dose: 40 mg Quetiapine Fumarate (Seroquel) 300 mg GT HS JESUS MANUEL; Protocol Stop: 01/02/19 20:59 Last Admin: 11/03/18 20:43 Dose: 300 mg Quetiapine Fumarate (Seroquel) 50 mg GT HS JESUS MANUEL; Protocol Stop: 01/02/19 20:59 Last Admin: 11/03/18 20:43 Dose: 50 mg Trazodone HCl (Desyrel) 25 mg GT HS JES[facility] MANUEL; Protocol Stop: 01/02/19 20:59 Last Admin: 11/03/18 20:43 Dose: 25 mg Valproate Sodium (Depakene) 750 mg GT HS JESUS MANUEL; Protocol Stop: 01/02/19 20:59 Last Admin: 11/03/18 20:43 Dose: 750 mg Valproate Sodium (Depakene) 625 mg GT DAILY JESUS MANUEL; Protocol Stop: 01/02/19 08:59 Last Admin: 11/04/18 08:23 Dose: 625 mg General: congested, demented HEENT: NC/AT, PERRLA, EOMI Neck: Supple, No JVD, deformity Lungs: congested, rales, ronchi Cardiovascular: RRR, Normal S1, Normal S2 Abdomen: soft, non-tender, +GT - redness Extremities: excoriation, contracture Neurological: no change, disorganized, unable to follow command, bedbound - Procedures Procedures: Procedures Procedure Code Date ASSISTANCE WITH RESPIRATORY VENTILATION, 24-96 HRS, CPAP [id number] 11/03/17 CHANGE FEEDING DEVICE IN UP INTEST TRACT, 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 APPROACH [id number] 10/07/18 CHANGE GASTROSTOMY TUBE 53560 07/06/17 DRAINAGE OF STOMACH WITH DRAINAGE DEVICE, VIA OPENING [id number] 11/03/17 EGD BIOPSY SINGLE/MULTIPLE 47286 09/11/[address] GASTROSTOMY TUBE 51499 02/16/09 EXCISION OF STOMACH, ENDO, DIAGN [id number] 09/11/17 INSERT EMERGENCY AIRWAY 58012 12/21/16 INSERTION OF ENDOTRACHEAL AIRWAY INTO TRACHEA, VIA OPENING [id number] 12/21/16 INSERTION OF INFUSION DEVICE INTO R ATRIUM, PERC APPROACH [id number] 12/21/16 OTHER ENDOSCOPY OF SM INTEST 45.13 02/16/09 REPLACE GASTROSTOMY TUBE 97.02 02/16/09 RESPIRATORY VENTILATION, GREATER THAN 96 CONSECUTIVE HOURS [id number] 12/21/16 VENT MGMT INPAT INIT DAY 34117 12/21/16 VENT MGMT INPAT SUBQ DAY 42614 12/21/16 Internal Medicine Assmt/Plan - Assessment Assessment: ASSESSMENT AND PLAN: 1. G-tube cellulitis. 2. G-tube malfunction. 3. Mental retardation. 4. Psych disorder. 5. Bedbound. 6. Renal insufficiency. 7. Dehydration. - Plan Plan: continue ivabx picc line to be placed am labs possible ltac eval continue current plan of care Nutritional Asmnt/Malnutr-PDOC - Dietary Evaluation Malnutrition Findings (Please click <Entered> for more info): Nutritional Asmnt/Malnutrition Start: 11/03/18 14: 26 Text: Status: Complete Freq: Protocol: Document 11/03/18 14:27 [email or web address] (Rec: 11/03/18 14:42 [email or web address]) Nutritional Asmnt/Malnutrition Patient General Information Nutritional Screening High Risk Diagnosis G tube malfunction, cellulitis Pertinent Medical Hx/Surgical Hx HTN, mental retardation, mental disability, dysphagia w / g tube site disorder Subjective Information Pt was seen in bed at time of visit. Pt was NPO with NG tube in place. has placed order for Jevity 1.2 at 75ml/hr x 16hrs, on at 4pm and off at 8am. Current Diet Order/ Nutrition Support Jevity 1.2 75ml/hr x 16hrs Pertinent Medications d5-0.45ns, heparin, zofran, protonix, seroquel Pertinent Labs 11/02 BUN 28 Nutritional Hx/Data Height 5 ft 6 in Height (Calculated Centimeters) 167.6 Current Weight (lbs) 159 lb Weight (Calculated Kilograms) 72.1 Weight (Calculated Grams) 17460.2 [place] Body Weight 142 Body Mass Index (BMI) 25.7 Weight Status Overweight GI Symptoms GI Symptoms None Last BM not indicated Difficult in: None Food Allergies No Usual diet at home per pt chart, TF with Jecity 1 .2 at 75ml/hr x 16hr at care facility Skin Integrity/Comment: anterior abdomen laceration, scar to lower anterior abdomen samantha 16 Estimated Nutritional Goals BEE in Kcals: Adj wt of IBW Calories/Kcals/Kg 23-27 Kcals Calculated 4374-4904 Protein: Adj wt of IBW Protein g/k Protein Calculated 66 Fluid: ml 1661-1994ml (1ml/kcal) Nutritional Problem No current Nutrition Prob Problem N/A Malnutrition Alert Is there a minimum of two criteria No selected? Query Text:Check all the applicable criteria. A minimum of two criteria are recommended for diagnosis of either severe or non-severe malnutrition. Malnutrition Related to Morbid Obesity Malnutrition related to morbid obesity No Intervention/Recommendation Comments 1. Continue with Jevity 1.2 at 75ml/hr x16hrs. It provides 1440kcal, 66g protein, 968ml free water, meeting 95% of calorie needs and 100% of protein needs. 2. Monitor TF rate, tolerance, wt, skin integrity and labs 3. F/U as moderate risk in 3-5 days Expected Outcomes/Goals Expected Outcomes/Goals 1. Pt to meet at least 90% of nutritional needs via nutrition support with tolerance 2. Wt stability, skin to remain intact, labs to approach WNL. Reviewed by Zita Zabala RD
[2018-11-04] MEDS: Albuterol/Ipratropium Neb 3 ML AERS HHN PRN (20:23)
[2018-11-05] MEDS: D5-0.9%NS 1,000 ML IV SCH ×2 (05:12→16:21)
[2018-11-05 06:21] LABS: % BASOPHILS 0.8 % (0.0-2.0); % EOSINOPHILS 0.4 % (0.0-5.0); % LYMPHOCYTES 13.1 % (20.0-50.0); % MONOCYTES 11.4 % (2.0-10.0); % NEUTROPHILS 74.3 % (40.0-80.0); BASOPHILE ABSOLUTE 0.1 Th/cumm (0-0.2); HEMATOCRIT 34.8 % (41.0-60); HEMOGLOBIN 11.9 gm/dL (12-16); LYMPHOCYTE ABSOLUTE 1.5 Th/cmm (1.5-3.0); MEAN CELL VOLUME 90.7 fl (80-99); MEAN CORPUSCULAR HEMOGLOBIN 31.1 pg (27.0-31.0); MEAN CORPUSCULAR HGB CONC 34.3 pg (28.0-36.0); MEAN PLATELET VOLUME 9.4 fl; MONOCYTE ABSOLUTE 1.3 Th/cmm (0.3-1.0); NEUTROPHILE ABSOLUTE 8.2 Th/cmm (1.8-8.0); PLATELET COUNT 183 Th/cmm (150-400); RED BLOOD COUNT 3.84 Mil/cmm (3.80-5.80); RED CELL DISTRIBUTION WIDTH 13.6 % (11.5-20.0); WHITE BLOOD COUNT 11.1 Th/cmm (4.8-10.8)
[2018-11-05] MEDS: Pantoprazole 40 mg/Packet PO SCH (06:37)
[2018-11-05 06:56] LABS: ANION GAP 11.8 (7.0-16.0); BUN - UREA NITROGEN 16 mg/dL (7-25); CALCIUM SERUM 8.5 mg/dL (8.6-10.3); CARBON DIOXIDE 26.8 mEq/L (21.0-31.0); CHLORIDE 106 mEq/L (98-107); CREATININE - SERUM 0.7 mg/dL (0.7-1.3); GFR AFRICAN-AMERICAN > 60.0 ml/min (>90); GFR NON AFRICAN-AMERICAN > 60.0 ml/min; GLUCOSE 102 mg/dL (70-105); POTASSIUM SERUM 3.6 mEq/L (3.5-5.1); SODIUM SERUM 141 mEq/L (136-145)
[2018-11-05] MEDS: Albuterol/Ipratropium Neb 3 ML AERS HHN PRN (07:33)
--- NOTE | 2018-11-05 07:55 | GI Progress Note ---
Subjective - Review of Systems Subjective: NO EVENTS COLBY NGT Objective - Results Result Diagrams: 11/05/18 06:00 11/05/18 06:00 Recent Labs: Laboratory Last Values WBC 11.1 Th/cmm (4.8-10.8) H 11/05/18 06:00 RBC 3.84 Mil/cmm (3.80-5.80) 11/05/18 06:00 Hgb 11.9 gm/dL (12-16) L 11/05/18 06:00 Hct 34.8 % (41.0-60) L 11/05/18 06:00 MCV 90.7 fl (80-99) 11/05/18 06:00 MCH 31.1 pg (27.0-31.0) H 11/05/18 06:00 MCHC Differential 34.3 pg (28.0-36.0) 11/05/18 06:00 RDW 13.6 % (11.5-20.0) 11/05/18 06:00 Plt Count 183 Th/cmm (150-400) 11/05/18 06:00 MPV 9.4 fl 11/05/18 06:00 Neutrophils % 74.3 % (40.0-80.0) 11/05/18 06:00 Lymphocytes % 13.1 % (20.0-50.0) L 11/05/18 06:00 Monocytes % 11.4 % (2.0-10.0) H 11/05/18 06:00 Eosinophils % 0.4 % (0.0-5.0) 11/05/18 06:00 Basophils % 0.8 % (0.0-2.0) 11/05/18 06:00 PT 11.0 SECONDS (9.5-11.5) 11/02/18 19:27 INR 1.06 (0.5-1.4) 11/02/18 19:27 PTT (Actin FS) 30.3 SECONDS (26.0-38.0) 11/02/18 19:27 Sodium 141 mEq/L (136-145) 11/05/18 06:00 Potassium 3.6 mEq/L (3.5-5.1) 11/05/18 06:00 Chloride 106 mEq/L (98-107) 11/05/18 06:00 Carbon Dioxide 26.8 mEq/L (21.0-31.0) 11/05/18 06:00 Anion Gap 11.8 (7.0-16.0) 11/05/18 06:00 BUN 16 mg/dL (7-25) 11/05/18 06:00 Creatinine 0.7 mg/dL (0.7-1.3) 11/05/18 06:00 Est GFR ( Amer) > 60.0 ml/min (>90) 11/05/18 06:00 Est GFR (Non-Af Amer) > 60.0 ml/min 11/05/18 06:00 BUN/Creatinine Ratio 22.9 11/05/18 06:00 Glucose 102 mg/dL (70-105) 11/05/18 06:00 POC Glucose 87 MG/DL (70 - 105) 11/02/18 21:53 Calcium 8.5 mg/dL (8.6-10.3) L 11/05/18 06:00 Magnesium 1.9 mg/dL (1.9-2.7) 11/04/18 06:06 Total Bilirubin 0.4 mg/dL (0.3-1.0) 11/04/18 06:06 AST 17 U/L (13-39) 11/04/18 06:06 ALT 7 U/L (7-52) 11/04/18 06:06 Alkaline Phosphatase 86 U/L (34-104) 11/04/18 06:06 Ammonia 66 umol/L (16-53) H 11/04/18 06:06 B-Natriuretic Peptide 85.5 pg/mL (5.0-100.0) 11/04/18 06:06 Total Protein 5.8 gm/dL (6.0-8.3) L 11/04/18 06:06 Albumin 2.9 gm/dL (4.2-5.5) L 11/04/18 06:06 Globulin 2.9 gm/dL 11/04/18 06:06 Albumin/Globulin Ratio 1.0 (1.0-1.8) 11/04/18 06:06 - Physical Exam Vitals and I&O: Vital Signs Temp 97.8 F 11/05/18 04:00 Pulse 61 11/05/18 07:37 Resp 20 11/05/18 07:37 BP 116/71 01/20/19 04:00 Pulse Ox 92 11/05/18 07:37 Intake & Output 11/04/18 11/05/18 11/05/18 18:59 06:59 18:59 Intake Total 571.016 2789 Balance 727.305 6622 Weight (lbs) 74.843 kg Intake: Intake, IV Amount 442.553 0299 D5-0.9%Ns 1,000 ml @ 80 838.961 7446 mls/hr IV .[id number] [facility] Rx #:[id number] Other 150 Other: # Voids 3 # Bowel Movements 1 Weight Source Bedscale Active Medications: Current Medications Acetaminophen (Tylenol 650mg Supp) 650 mg RC Q4H PRN PRN Reason: Pain or Fever >101 Stop: 01/01/19 22:35 Albuterol/Ipratropium (Duoneb Neb) 3 ml HHN Q4HRT PRN PRN Reason: Congestion Stop: 01/01/19 22:35 Last Admin: 11/05/18 07:33 Dose: 3 ml Atenolol (Tenormin) 25 mg GT DAILY [facility] Stop: 01/02/19 08:59 Last Admin: 11/04/18 08:23 Dose: 25 mg Dextromethorphan/Quinidine (Nuedexta 20mg-10mg) 1 cap GT BID [facility] Stop: 01/02/19 08:59 Last Admin: 11/04/18 16:38 Dose: 1 cap Heparin Sodium (Porcine) (Heparin) 5,000 units SUBQ Q12HR [facility] Stop: 01/02/19 20:59 Last Admin: 11/04/18 21:07 Dose: 5,000 units Dextrose/Sodium Chloride (D5-0.9%Ns) 1,000 mls @ 80 mls/hr IV .[id number] [facility] Stop: 01/01/19 22:44 Last Admin: 11/05/18 05:12 Dose: 80 mls/hr Ceftriaxone Sodium 1 gm/ (Sodium Chloride) 50 mls @ 100 mls/hr IV Q12HR [facility] Stop: 01/04/19 08:59 Lactobacillus Rhamnosus (Culturelle 15b) 1 each PO DAILY [facility] MANUEL Stop: 01/02/19 15:59 Last Admin: 11/04/18 08:23 Dose: 1 each Lorazepam (Ativan) 0.5 mg IV Q4H PRN; Protocol PRN Reason: Agitation Stop: 01/01/19 22:39 Miscellaneous (Vte Chemical Prophylaxis Screen/ Admission) 1 ea PRN PRN PRN Reason: PROTOCOL Stop: 01/02/19 10:14 Miscellaneous (Probiotic Screen) 1 ea PRN PRN PRN Reason: PROTOCOL Stop: 01/02/19 14:58 Ondansetron HCl (Zofran) 4 mg IV Q8H PRN PRN Reason: Nausea / Vomiting Stop: 01/01/19 22:37 Pantoprazole Sodium (Protonix) 40 mg PO QDAC [facility] Stop: 01/02/19 07:29 Last Admin: 11/05/18 06:37 Dose: 40 mg Quetiapine Fumarate (Seroquel) 300 mg GT HS JESUS MANUEL; Protocol Stop: 01/02/19 20:59 Last Admin: 11/04/18 21:03 Dose: 300 mg Quetiapine Fumarate (Seroquel) 50 mg GT HS [facility]ES[facility] MANUEL; Protocol Stop: 01/02/19 20:59 Last Admin: 11/04/18 21:04 Dose: 50 mg Trazodone HCl (Desyrel) 25 mg GT HS [facility] MANUEL; Protocol Stop: 01/02/19 20:59 Last Admin: 11/04/18 21:02 Dose: 25 mg Valproate Sodium (Depakene) 750 mg GT HS JES[facility] MANUEL; Protocol Stop: 01/02/19 20:59 Last Admin: 11/04/18 21:05 Dose: 750 mg Valproate Sodium (Depakene) 625 mg GT DAILY JESUS MANUEL; Protocol Stop: 01/02/19 08:59 Last Admin: 11/04/18 08:23 Dose: 625 mg - Procedures Procedures: Procedures Procedure Code Date ASSISTANCE WITH RESPIRATORY VENTILATION, 24-96 HRS, CPAP [id number] 11/03/17 CHANGE FEEDING DEVICE IN UP INTEST TRACT, [employer]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 [id number] 10/07/18 CHANGE GASTROSTOMY TUBE 72848 07/06/17 DRAINAGE OF STOMACH WITH DRAINAGE DEVICE, VIA OPENING [id number] 11/03/17 EGD BIOPSY SINGLE/MULTIPLE 56706 09/11/[address] GASTROSTOMY TUBE 44142 02/16/09 EXCISION OF STOMACH, ENDO, DIAGN [id number] 09/11/17 INSERT EMERGENCY AIRWAY 08628 12/21/16 INSERTION OF ENDOTRACHEAL AIRWAY INTO TRACHEA, VIA OPENING [id number] 12/21/16 INSERTION OF INFUSION DEVICE INTO R ATRIUM, PERC APPROACH [id number] 12/21/16 OTHER ENDOSCOPY OF SM INTEST 45.13 02/16/09 REPLACE GASTROSTOMY TUBE 97.02 02/16/09 RESPIRATORY VENTILATION, GREATER THAN 96 CONSECUTIVE HOURS [id number] 12/21/16 VENT MGMT INPAT INIT DAY 80412 12/21/16 VENT MGMT INPAT SUBQ DAY 61542 12/21/16 Assessment/Plan - Assessment Assessment: 63 YO MALE WITH MALFUNCTION G TUBE/PULLED OUT AND DYSPHAGIA HAS NGT AND IS COLBY TUBE FEEDS 1.PEG TOMORROW 2.CONT NGT FOR NOW
[2018-11-05] MEDS: Lactobacillus Rhamnosus GG 15 Billion CFU CAP.SPRINK PO SCH (08:24)
[2018-11-05] MEDS: Dextromethorphan/Quinidine 20mg/10mg Cap GT SCH ×2 (08:24→16:18)
[2018-11-05] MEDS: cefTRIAXone 1 GM in Sodium Chloride 0.9% 50 ML IV SCH ×2 (08:30→20:15)
--- NOTE | 2018-11-05 12:42 | Internal Medicine Prog Note ---
Internal Medicine Subjective - Subjective Service Date: 11/05/18 Patient is:: awake, verbal, interactive Patient Complaints of:: congestion, unable to sleep Per staff patient has:: no adverse event, no episodes of fall, gagging, agitated , combative, noncompliant Internal Medicine Objective - Results Result Diagrams: 11/05/18 06:00 11/05/18 06:00 Recent Labs: Laboratory Last Values WBC 11.1 Th/cmm (4.8-10.8) H 11/05/18 06:00 RBC 3.84 Mil/cmm (3.80-5.80) 11/05/18 06:00 Hgb 11.9 gm/dL (12-16) L 11/05/18 06:00 Hct 34.8 % (41.0-60) L 11/05/18 06:00 MCV 90.7 fl (80-99) 11/05/18 06:00 MCH 31.1 pg (27.0-31.0) H 11/05/18 06:00 MCHC Differential 34.3 pg (28.0-36.0) 11/05/18 06:00 RDW 13.6 % (11.5-20.0) 11/05/18 06:00 Plt Count 183 Th/cmm (150-400) 11/05/18 06:00 MPV 9.4 fl 11/05/18 06:00 Neutrophils % 74.3 % (40.0-80.0) 11/05/18 06:00 Lymphocytes % 13.1 % (20.0-50.0) L 11/05/18 06:00 Monocytes % 11.4 % (2.0-10.0) H 11/05/18 06:00 Eosinophils % 0.4 % (0.0-5.0) 11/05/18 06:00 Basophils % 0.8 % (0.0-2.0) 11/05/18 06:00 PT 11.0 SECONDS (9.5-11.5) 11/02/18 19:27 INR 1.06 (0.5-1.4) 11/02/18 19:27 PTT (Actin FS) 30.3 SECONDS (26.0-38.0) 11/02/18 19:27 Sodium 141 mEq/L (136-145) 11/05/18 06:00 Potassium 3.6 mEq/L (3.5-5.1) 11/05/18 06:00 Chloride 106 mEq/L (98-107) 11/05/18 06:00 Carbon Dioxide 26.8 mEq/L (21.0-31.0) 11/05/18 06:00 Anion Gap 11.8 (7.0-16.0) 11/05/18 06:00 BUN 16 mg/dL (7-25) 11/05/18 06:00 Creatinine 0.7 mg/dL (0.7-1.3) 11/05/18 06:00 Est GFR ( Amer) > 60.0 ml/min (>90) 11/05/18 06:00 Est GFR (Non-Af Amer) > 60.0 ml/min 11/05/18 06:00 BUN/Creatinine Ratio 22.9 11/05/18 06:00 Glucose 102 mg/dL (70-105) 11/05/18 06:00 POC Glucose 87 MG/DL (70 - 105) 11/02/18 21:53 Calcium 8.5 mg/dL (8.6-10.3) L 11/05/18 06:00 Magnesium 1.9 mg/dL (1.9-2.7) 11/04/18 06:06 Total Bilirubin 0.4 mg/dL (0.3-1.0) 11/04/18 06:06 AST 17 U/L (13-39) 11/04/18 06:06 ALT 7 U/L (7-52) 11/04/18 06:06 Alkaline Phosphatase 86 U/L (34-104) 11/04/18 06:06 Ammonia 66 umol/L (16-53) H 11/04/18 06:06 B-Natriuretic Peptide 85.5 pg/mL (5.0-100.0) 11/04/18 06:06 Total Protein 5.8 gm/dL (6.0-8.3) L 11/04/18 06:06 Albumin 2.9 gm/dL (4.2-5.5) L 11/04/18 06:06 Globulin 2.9 gm/dL 11/04/18 06:06 Albumin/Globulin Ratio 1.0 (1.0-1.8) 11/04/18 06:06 - Physical Exam Vitals and I&O: Vital Signs Temp 98.4 F 11/05/18 12:09 Pulse 75 11/05/18 12:09 Resp 18 11/05/18 12:09 BP 127/50 11/05/18 12:09 Pulse Ox 93 11/05/18 12:09 Intake & Output 11/04/18 11/05/18 11/05/18 18:59 06:59 18:59 Intake Total 239.987 9996 50 Balance 099.736 5575 50 Weight (lbs) 165 lb Intake: Intake, IV Amount 921.413 3467 50 D5-0.9%Ns 1,000 ml @ 80 698.867 1189 mls/hr IV .[id number] [facility] Rx #:[id number] cefTRIAXone 1 gm In 50 Sodium Chloride 0.9% 50 ml @ 100 mls/hr IV Q12HR [facility] Rx#:[id number] Other 150 Other: # Voids 3 # Bowel Movements 1 Weight Source Bedscale Active Medications: Current Medications Acetaminophen (Tylenol 650mg Supp) 650 mg RC Q4H PRN PRN Reason: Pain or Fever >101 Stop: 01/01/19 22:35 Albuterol/Ipratropium (Duoneb Neb) 3 ml HHN Q4HRT PRN PRN Reason: Congestion Stop: 01/01/19 22:35 Last Admin: 11/05/18 07:33 Dose: 3 ml Atenolol (Tenormin) 25 mg GT DAILY [facility] Stop: 01/02/19 08:59 Last Admin: 11/05/18 08:29 Dose: Not Given Dextromethorphan/Quinidine (Nuedexta 20mg-10mg) 1 cap GT BID [facility] Stop: 01/02/19 08:59 Last Admin: 11/05/18 08:24 Dose: 1 cap Heparin Sodium (Porcine) (Heparin) 5,000 units SUBQ Q12HR [facility] Stop: 01/02/19 20:59 Last Admin: 11/05/18 08:32 Dose: Not Given Dextrose/Sodium Chloride (D5-0.9%Ns) 1,000 mls @ 80 mls/hr IV .[id number] [facility] Stop: 01/01/19 22:44 Last Admin: 11/05/18 05:12 Dose: 80 mls/hr Ceftriaxone Sodium 1 gm/ (Sodium Chloride) 50 mls @ 100 mls/hr IV Q12HR [facility] Stop: 01/04/19 08:59 Last Infusion: 11/05/18 11:03 Dose: Infused Lactobacillus Rhamnosus (Culturelle 15b) 1 each PO DAILY [facility] Stop: 01/02/19 15:59 Last Admin: 11/05/18 08:24 Dose: 1 each Lorazepam (Ativan) 0.5 mg IV Q4H PRN; Protocol PRN Reason: Agitation Stop: 01/01/19 22:39 Miscellaneous (Vte Chemical Prophylaxis Screen/ Admission) 1 ea PRN PRN PRN Reason: PROTOCOL Stop: 01/02/19 10:14 Miscellaneous (Probiotic Screen) 1 ea PRN PRN PRN Reason: PROTOCOL Stop: 01/02/19 14:58 Ondansetron HCl (Zofran) 4 mg IV Q8H PRN PRN Reason: Nausea / Vomiting Stop: 01/01/19 22:37 Pantoprazole Sodium (Protonix) 40 mg PO QDAC [facility] Stop: 01/02/19 07:29 Last Admin: 11/05/18 06:37 Dose: 40 mg Quetiapine Fumarate (Seroquel) 300 mg GT HS [facility]; Protocol Stop: 01/02/19 20:59 Last Admin: 11/04/18 21:03 Dose: 300 mg Quetiapine Fumarate (Seroquel) 50 mg GT HS [facility]; Protocol Stop: 01/02/19 20:59 Last Admin: 11/04/18 21:04 Dose: 50 mg Trazodone HCl (Desyrel) 25 mg GT HS [facility]; Protocol Stop: 01/02/19 20:59 Last Admin: 11/04/18 21:02 Dose: 25 mg Valproate Sodium (Depakene) 750 mg GT HS [facility]; Protocol Stop: 01/02/19 20:59 Last Admin: 11/04/18 21:05 Dose: 750 mg Valproate Sodium (Depakene) 625 mg GT DAILY [facility]; Protocol Stop: 01/02/19 08:59 Last Admin: 11/05/18 08:24 Dose: 625 mg General: congested, demented HEENT: NC/AT, PERRLA, EOMI Neck: Supple, No JVD, deformity Lungs: congested, rales, ronchi Cardiovascular: RRR, Normal S1, Normal S2 Abdomen: soft, non-tender, +GT - redness Extremities: excoriation, contracture Neurological: no change, disorganized, unable to follow command, bedbound - Procedures Procedures: Procedures Procedure Code Date ASSISTANCE WITH RESPIRATORY VENTILATION, 24-96 HRS, CPAP [id number] 11/03/17 CHANGE FEEDING DEVICE IN UP INTEST TRACT, MANAGER AGRICULTURAL APPROACH [id number] 10/07/18 CHANGE GASTROSTOMY TUBE 55000 07/06/17 DRAINAGE OF STOMACH WITH DRAINAGE DEVICE, VIA OPENING [id number] 11/03/17 EGD BIOPSY SINGLE/MULTIPLE 77297 09/11/[address] GASTROSTOMY TUBE 17229 02/16/09 EXCISION OF STOMACH, ENDO, DIAGN [id number] 09/11/17 INSERT EMERGENCY AIRWAY 41341 12/21/16 INSERTION OF ENDOTRACHEAL AIRWAY INTO TRACHEA, VIA OPENING [id number] 12/21/16 INSERTION OF INFUSION DEVICE INTO R ATRIUM, PERC APPROACH [id number] 12/21/16 OTHER ENDOSCOPY OF SM INTEST 45.13 02/16/09 REPLACE GASTROSTOMY TUBE 97.02 02/16/09 RESPIRATORY VENTILATION, GREATER THAN 96 CONSECUTIVE HOURS [id number] 12/21/16 VENT MGMT INPAT INIT DAY 60206 12/21/16 VENT MGMT INPAT SUBQ DAY 43016 12/21/16 Internal Medicine Assmt/Plan - Assessment Assessment: ASSESSMENT AND PLAN: 1. G-tube cellulitis. 2. G-tube malfunction. 3. Mental retardation. 4. Psych disorder. 5. Bedbound. 6. Renal insufficiency. 7. Dehydration. - Plan Plan: continue ivabx picc line to be placed tomorrow am labs possible ltac eval continue current plan of care Nutritional Asmnt/Malnutr-PDOC - Dietary Evaluation Malnutrition Findings (Please click <Entered> for more info): Nutritional Asmnt/Malnutrition Start: 11/03/18 14: 26 Text: Status: Complete Freq: Protocol: Document 11/03/18 14:27 [email or web address] (Rec: 11/03/18 14:42 [email or web address]) Nutritional Asmnt/Malnutrition Patient General Information Nutritional Screening High Risk Diagnosis G tube malfunction, cellulitis Pertinent Medical Hx/Surgical Hx HTN, mental retardation, mental disability, dysphagia w / g tube site disorder Subjective Information Pt was seen in bed at time of visit. Pt was NPO with NG tube in place. has placed order for Jevity 1.2 at 75ml/hr x 16hrs, on at 4pm and off at 8am. Current Diet Order/ Nutrition Support Jevity 1.2 75ml/hr x 16hrs Pertinent Medications d5-0.45ns, heparin, zofran, protonix, seroquel Pertinent Labs 11/02 BUN 28 Nutritional Hx/Data Height 5 ft 6 in Height (Calculated Centimeters) 167.6 Current Weight (lbs) 159 lb Weight (Calculated Kilograms) 72.1 Weight (Calculated Grams) 98176.2 [place] Body Weight 142 Body Mass Index (BMI) 25.7 Weight Status Overweight GI Symptoms GI Symptoms None Last BM not indicated Difficult in: None Food Allergies No Usual diet at home per pt chart, TF with Jecity 1 .2 at 75ml/hr x 16hr at care facility Skin Integrity/Comment: anterior abdomen laceration, scar to lower anterior abdomen samantha 16 Estimated Nutritional Goals BEE in Kcals: Adj wt of IBW Calories/Kcals/Kg 23-27 Kcals Calculated 8286-6135 Protein: Adj wt of IBW Protein g/k Protein Calculated 66 Fluid: ml 1661-1994ml (1ml/kcal) Nutritional Problem No current Nutrition Prob Problem N/A Malnutrition Alert Is there a minimum of two criteria No selected? Query Text:Check all the applicable criteria. A minimum of two criteria are recommended for diagnosis of either severe or non-severe malnutrition. Malnutrition Related to Morbid Obesity Malnutrition related to morbid obesity No Intervention/Recommendation Comments 1. Continue with Jevity 1.2 at 75ml/hr x16hrs. It provides 1440kcal, 66g protein, 968ml free water, meeting 95% of calorie needs and 100% of protein needs. 2. Monitor TF rate, tolerance, wt, skin integrity and labs 3. F/U as moderate risk in 3-5 days Expected Outcomes/Goals Expected Outcomes/Goals 1. Pt to meet at least 90% of nutritional needs via nutrition support with tolerance 2. Wt stability, skin to remain intact, labs to approach WNL. Reviewed by Zita Zabala RD
[2018-11-06 04:46] LABS: % BASOPHILS 0.2 % (0.0-2.0); % EOSINOPHILS 0.7 % (0.0-5.0); % LYMPHOCYTES 14.8 % (20.0-50.0); % MONOCYTES 13.8 % (2.0-10.0); % NEUTROPHILS 70.5 % (40.0-80.0); EOSINOPHILE ABSOLUTE 0.1 Th/cmm (0.1-0.4); HEMATOCRIT 34.6 % (41.0-60); HEMOGLOBIN 11.7 gm/dL (12-16); LYMPHOCYTE ABSOLUTE 1.2 Th/cmm (1.5-3.0); MEAN CELL VOLUME 93.1 fl (80-99); MEAN CORPUSCULAR HEMOGLOBIN 31.4 pg (27.0-31.0); MEAN CORPUSCULAR HGB CONC 33.7 pg (28.0-36.0); MEAN PLATELET VOLUME 9.3 fl; MONOCYTE ABSOLUTE 1.1 Th/cmm (0.3-1.0); NEUTROPHILE ABSOLUTE 5.4 Th/cmm (1.8-8.0); PLATELET COUNT 175 Th/cmm (150-400); RED BLOOD COUNT 3.72 Mil/cmm (3.80-5.80); RED CELL DISTRIBUTION WIDTH 13.2 % (11.5-20.0); WHITE BLOOD COUNT 7.8 Th/cmm (4.8-10.8)
[2018-11-06 05:29] LABS: BUN - UREA NITROGEN 15 mg/dL (7-25); CALCIUM SERUM 8.4 mg/dL (8.6-10.3); CARBON DIOXIDE 28.4 mEq/L (21.0-31.0); CHLORIDE 107 mEq/L (98-107); CREATININE - SERUM 0.6 mg/dL (0.7-1.3); GFR AFRICAN-AMERICAN > 60.0 ml/min (>90); GFR NON AFRICAN-AMERICAN > 60.0 ml/min; GLUCOSE 94 mg/dL (70-105); POTASSIUM SERUM 3.4 mEq/L (3.5-5.1); SODIUM SERUM 143 mEq/L (136-145)
[2018-11-06 05:47] LABS: INR 1.07 (0.5-1.4); PROTHROMBIN TIME (TEST) 11.1 SECONDS (9.5-11.5)
[2018-11-06] MEDS: D5-0.9%NS 1,000 ML IV SCH ×2 (05:54→10:38)
[2018-11-06] MEDS: Pantoprazole 40 mg/Packet PO SCH (06:45)
[2018-11-06] MEDS: Albuterol/Ipratropium Neb 3 ML AERS HHN PRN (07:25)
[2018-11-06] MEDS: cefTRIAXone 1 GM in Sodium Chloride 0.9% 50 ML IV SCH ×2 (08:24→20:58)
--- NOTE | 2018-11-06 09:59 | Diagnostic Imaging Report ---
Portable chest x-ray HISTORY: Shortness of breath There is a poor inspiration. Heart size appears generous. Compared with the prior exam of 11/03/2018, linear density noted in the right lower lobe that may be associated with scarring or subsegmental atelectasis. IMPRESSION: 1. Linear density right lower lobe which may be associated with scarring or subsegmental atelectasis. No other focal pulmonary parenchymal processes 2. Generous heart size
--- NOTE | 2018-11-06 10:13 | GI Progress Note ---
Subjective - Review of Systems Subjective: NO EVENTS WAS GOING TO HAVE PEG BUT HAS CONGESTION Objective - Results Result Diagrams: 11/06/18 04:35 11/06/18 04:35 Recent Labs: Laboratory Last Values WBC 7.8 Th/cmm (4.8-10.8) 11/06/18 04:35 RBC 3.72 Mil/cmm (3.80-5.80) L 11/06/18 04:35 Hgb 11.7 gm/dL (12-16) L 11/06/18 04:35 Hct 34.6 % (41.0-60) L 11/06/18 04:35 MCV 93.1 fl (80-99) 11/06/18 04:35 MCH 31.4 pg (27.0-31.0) H 11/06/18 04:35 MCHC Differential 33.7 pg (28.0-36.0) 11/06/18 04:35 RDW 13.2 % (11.5-20.0) 11/06/18 04:35 Plt Count 175 Th/cmm (150-400) 11/06/18 04:35 MPV 9.3 fl 11/06/18 04:35 Neutrophils % 70.5 % (40.0-80.0) 11/06/18 04:35 Lymphocytes % 14.8 % (20.0-50.0) L 11/06/18 04:35 Monocytes % 13.8 % (2.0-10.0) H 11/06/18 04:35 Eosinophils % 0.7 % (0.0-5.0) 11/06/18 04:35 Basophils % 0.2 % (0.0-2.0) 11/06/18 04:35 PT 11.1 SECONDS (9.5-11.5) 11/06/18 04:35 INR 1.07 (0.5-1.4) 11/06/18 04:35 PTT (Actin FS) 30.3 SECONDS (26.0-38.0) 11/02/18 19:27 Sodium 143 mEq/L (136-145) 11/06/18 04:35 Potassium 3.4 mEq/L (3.5-5.1) L 11/06/18 04:35 Chloride 107 mEq/L (98-107) 11/06/18 04:35 Carbon Dioxide 28.4 mEq/L (21.0-31.0) 11/06/18 04:35 Anion Gap 11.0 (7.0-16.0) 11/06/18 04:35 BUN 15 mg/dL (7-25) 11/06/18 04:35 Creatinine 0.6 mg/dL (0.7-1.3) L 11/06/18 04:35 Est GFR ( Amer) > 60.0 ml/min (>90) 11/06/18 04:35 Est GFR (Non-Af Amer) > 60.0 ml/min 11/06/18 04:35 BUN/Creatinine Ratio 25.0 11/06/18 04:35 Glucose 94 mg/dL (70-105) 11/06/18 04:35 POC Glucose 101 MG/DL (70 - 105) 11/06/18 07:14 Calcium 8.4 mg/dL (8.6-10.3) L 11/06/18 04:35 Magnesium 1.9 mg/dL (1.9-2.7) 11/04/18 06:06 Total Bilirubin 0.4 mg/dL (0.3-1.0) 11/04/18 06:06 AST 17 U/L (13-39) 11/04/18 06:06 ALT 7 U/L (7-52) 11/04/18 06:06 Alkaline Phosphatase 86 U/L (34-104) 11/04/18 06:06 Ammonia 66 umol/L (16-53) H 11/04/18 06:06 B-Natriuretic Peptide 85.5 pg/mL (5.0-100.0) 11/04/18 06:06 Total Protein 5.8 gm/dL (6.0-8.3) L 11/04/18 06:06 Albumin 2.9 gm/dL (4.2-5.5) L 11/04/18 06:06 Globulin 2.9 gm/dL 11/04/18 06:06 Albumin/Globulin Ratio 1.0 (1.0-1.8) 11/04/18 06:06 - Physical Exam Vitals and I&O: Vital Signs Temp 97.3 F 11/06/18 07:49 Pulse 71 11/06/18 07:49 Resp 18 11/06/18 07:49 BP 120/63 11/06/18 07:49 Pulse Ox 96 11/06/18 07:49 Intake & Output 11/05/18 11/06/18 11/06/18 18:59 06:59 18:59 Intake Total 942 1050 Balance 942 1050 Weight (lbs) 74.843 kg 76.022 kg Intake: Intake, IV Amount 942 1050 D5-0.9%Ns 1,000 ml @ 80 892 1000 mls/hr IV .[id number] [facility] Rx #:[id number] cefTRIAXone 1 gm In 50 50 Sodium Chloride 0.9% 50 ml @ 100 mls/hr IV Q12HR [facility] Rx#:[id number] Oral 0 Other: # Voids 3 3 # Bowel Movements 0 Weight Source Bedscale Bedscale Active Medications: Current Medications Acetaminophen (Tylenol 650mg Supp) 650 mg RC Q4H PRN PRN Reason: Pain or Fever >101 Stop: 01/01/19 22:35 Albuterol/Ipratropium (Duoneb Neb) 3 ml HHN Q4HRT PRN PRN Reason: Congestion Stop: 01/01/19 22:35 Last Admin: 11/06/18 07:25 Dose: 3 ml Atenolol (Tenormin) 25 mg GT DAILY [facility] Stop: 01/02/19 08:59 Last Admin: 11/05/18 08:29 Dose: Not Given Dextromethorphan/Quinidine (Nuedexta 20mg-10mg) 1 cap GT BID [facility] Stop: 01/02/19 08:59 Last Admin: 11/05/18 16:18 Dose: 1 cap Heparin Sodium (Porcine) (Heparin) 5,000 units SUBQ Q12HR [facility] Stop: 01/02/19 20:59 Last Admin: 11/06/18 08:28 Dose: Not Given Ceftriaxone Sodium 1 gm/ (Sodium Chloride) 50 mls @ 100 mls/hr IV Q12HR [facility] Stop: 01/04/19 08:59 Last Admin: 11/06/18 08:24 Dose: 100 mls/hr Potassium Chloride 40 meq/Lidocaine HCl 25 mg/ Sodium Chloride 272.5 mls @ 68 mls/hr IV X1 ONE Stop: 11/06/18 14:30 Dextrose/Sodium Chloride (D5-0.9%Ns) 1,000 mls @ 40 mls/hr IV .Q24H [facility] Stop: 01/05/19 09:44 Lactobacillus Rhamnosus (Culturelle 15b) 1 each PO DAILY [facility] Stop: 01/02/19 15:59 Last Admin: 11/05/18 08:24 Dose: 1 each Lorazepam (Ativan) 0.5 mg IV Q4H PRN; Protocol PRN Reason: Agitation Stop: 01/01/19 22:39 Miscellaneous (Vte Chemical Prophylaxis Screen/ Admission) 1 ea PRN PRN PRN Reason: PROTOCOL Stop: 01/02/19 10:14 Miscellaneous (Probiotic Screen) 1 ea PRN PRN PRN Reason: PROTOCOL Stop: 01/02/19 14:58 Ondansetron HCl (Zofran) 4 mg IV Q8H PRN PRN Reason: Nausea / Vomiting Stop: 01/01/19 22:37 Pantoprazole Sodium (Protonix) 40 mg PO QDAC [facility] Stop: 01/02/19 07:29 Last Admin: 11/06/18 06:45 Dose: 40 mg Quetiapine Fumarate (Seroquel) 300 mg GT HS [facility]; Protocol Stop: 01/02/19 20:59 Last Admin: 11/05/18 20:18 Dose: 300 mg Quetiapine Fumarate (Seroquel) 50 mg GT HS [facility]; Protocol Stop: 01/02/19 20:59 Last Admin: 11/05/18 20:19 Dose: 50 mg Trazodone HCl (Desyrel) 25 mg GT HS [facility]; Protocol Stop: 01/02/19 20:59 Last Admin: 11/05/18 20:18 Dose: 25 mg Valproate Sodium (Depakene) 750 mg GT HS [facility]; Protocol Stop: 01/02/19 20:59 Last Admin: 11/05/18 20:20 Dose: 750 mg Valproate Sodium (Depakene) 625 mg GT DAILY [facility]; Protocol Stop: 01/02/19 08:59 Last Admin: 11/05/18 08:24 Dose: 625 mg - Procedures Procedures: Procedures Procedure Code Date ASSISTANCE WITH RESPIRATORY VENTILATION, 24-96 HRS, CPAP [id number] 11/03/17 CHANGE FEEDING DEVICE IN UP INTEST TRACT, MAILING SPECIALIST APPROACH [id number] 10/07/18 CHANGE GASTROSTOMY TUBE 57964 07/06/17 DRAINAGE OF STOMACH WITH DRAINAGE DEVICE, VIA OPENING [id number] 11/03/17 EGD BIOPSY SINGLE/MULTIPLE 75429 09/11/[address] GASTROSTOMY TUBE 01414 02/16/09 EXCISION OF STOMACH, ENDO, DIAGN [id number] 09/11/17 INSERT EMERGENCY AIRWAY 09545 12/21/16 INSERTION OF ENDOTRACHEAL AIRWAY INTO TRACHEA, VIA OPENING [id number] 12/21/16 INSERTION OF INFUSION DEVICE INTO R ATRIUM, PERC APPROACH [id number] 12/21/16 OTHER ENDOSCOPY OF SM INTEST 45.13 02/16/09 REPLACE GASTROSTOMY TUBE 97.02 02/16/09 RESPIRATORY VENTILATION, GREATER THAN 96 CONSECUTIVE HOURS [id number] 12/21/16 VENT MGMT INPAT INIT DAY 92958 12/21/16 VENT MGMT INPAT SUBQ DAY 88755 12/21/16 Assessment/Plan - Assessment Assessment: 63 YO MALE WITH MALFUNCTION G TUBE/PULLED OUT AND DYSPHAGIA HAS NGT AND IS COLBY TUBE FEEDS 1.PEG TOMORROW WHEN CONGESTION BETTER 2.CONT NGT FOR NOW
[2018-11-06] MEDS ORDERED: Potassium Chloride 40 MEQ, Lidocaine 1% 20mL Vial 25 MG in Sodium Chloride 0.9% 250 ML IV ONE (10:30)
[2018-11-06] MEDS: Lactobacillus Rhamnosus GG 15 Billion CFU CAP.SPRINK PO SCH (10:52)
[2018-11-06] MEDS: Dextromethorphan/Quinidine 20mg/10mg Cap GT SCH ×2 (10:57→17:31)
--- NOTE | 2018-11-06 13:12 | Internal Medicine Prog Note ---
Internal Medicine Subjective - Subjective Patient seen and examined:: with staff, chart reviewed Patient is:: awake, verbal, interactive Patient Complaints of:: congestion, unable to sleep Per staff patient has:: no adverse event, no episodes of fall, gagging, agitated , combative, noncompliant Internal Medicine Objective - Results Result Diagrams: 11/06/18 04:35 11/06/18 04:35 Recent Labs: Laboratory Last Values WBC 7.8 Th/cmm (4.8-10.8) 11/06/18 04:35 RBC 3.72 Mil/cmm (3.80-5.80) L 11/06/18 04:35 Hgb 11.7 gm/dL (12-16) L 11/06/18 04:35 Hct 34.6 % (41.0-60) L 11/06/18 04:35 MCV 93.1 fl (80-99) 11/06/18 04:35 MCH 31.4 pg (27.0-31.0) H 11/06/18 04:35 MCHC Differential 33.7 pg (28.0-36.0) 11/06/18 04:35 RDW 13.2 % (11.5-20.0) 11/06/18 04:35 Plt Count 175 Th/cmm (150-400) 11/06/18 04:35 MPV 9.3 fl 11/06/18 04:35 Neutrophils % 70.5 % (40.0-80.0) 11/06/18 04:35 Lymphocytes % 14.8 % (20.0-50.0) L 11/06/18 04:35 Monocytes % 13.8 % (2.0-10.0) H 11/06/18 04:35 Eosinophils % 0.7 % (0.0-5.0) 11/06/18 04:35 Basophils % 0.2 % (0.0-2.0) 11/06/18 04:35 PT 11.1 SECONDS (9.5-11.5) 11/06/18 04:35 INR 1.07 (0.5-1.4) 11/06/18 04:35 PTT (Actin FS) 30.3 SECONDS (26.0-38.0) 11/02/18 19:27 Sodium 143 mEq/L (136-145) 11/06/18 04:35 Potassium 3.4 mEq/L (3.5-5.1) L 11/06/18 04:35 Chloride 107 mEq/L (98-107) 11/06/18 04:35 Carbon Dioxide 28.4 mEq/L (21.0-31.0) 11/06/18 04:35 Anion Gap 11.0 (7.0-16.0) 11/06/18 04:35 BUN 15 mg/dL (7-25) 11/06/18 04:35 Creatinine 0.6 mg/dL (0.7-1.3) L 11/06/18 04:35 Est GFR ( Amer) > 60.0 ml/min (>90) 11/06/18 04:35 Est GFR (Non-Af Amer) > 60.0 ml/min 11/06/18 04:35 BUN/Creatinine Ratio 25.0 11/06/18 04:35 Glucose 94 mg/dL (70-105) 11/06/18 04:35 POC Glucose 101 MG/DL (70 - 105) 11/06/18 07:14 Calcium 8.4 mg/dL (8.6-10.3) L 11/06/18 04:35 Magnesium 1.9 mg/dL (1.9-2.7) 11/04/18 06:06 Total Bilirubin 0.4 mg/dL (0.3-1.0) 11/04/18 06:06 AST 17 U/L (13-39) 11/04/18 06:06 ALT 7 U/L (7-52) 11/04/18 06:06 Alkaline Phosphatase 86 U/L (34-104) 11/04/18 06:06 Ammonia 66 umol/L (16-53) H 11/04/18 06:06 B-Natriuretic Peptide 85.5 pg/mL (5.0-100.0) 11/04/18 06:06 Total Protein 5.8 gm/dL (6.0-8.3) L 11/04/18 06:06 Albumin 2.9 gm/dL (4.2-5.5) L 11/04/18 06:06 Globulin 2.9 gm/dL 11/04/18 06:06 Albumin/Globulin Ratio 1.0 (1.0-1.8) 11/04/18 06:06 - Physical Exam Vitals and I&O: Vital Signs Temp 97.5 F 11/06/18 11:31 Pulse 66 11/06/18 11:31 Resp 18 11/06/18 11:31 BP 116/71 11/06/18 11:31 Pulse Ox 97 11/06/18 11:31 Intake & Output 11/05/18 11/06/18 11/06/18 18:59 06:59 18:59 Intake Total 942 1050 Balance 942 1050 Weight (lbs) 74.843 kg 76.022 kg Intake: Intake, IV Amount 942 1050 D5-0.9%Ns 1,000 ml @ 80 892 1000 mls/hr IV .[id number] [facility] Rx #:[id number] cefTRIAXone 1 gm In 50 50 Sodium Chloride 0.9% 50 ml @ 100 mls/hr IV Q12HR [facility] Rx#:[id number] Oral 0 Other: # Voids 3 3 # Bowel Movements 0 Weight Source Bedscale Bedscale Active Medications: Current Medications Acetaminophen (Tylenol 650mg Supp) 650 mg RC Q4H PRN PRN Reason: Pain or Fever >101 Stop: 01/01/19 22:35 Albuterol/Ipratropium (Duoneb Neb) 3 ml HHN Q4HRT PRN PRN Reason: Congestion Stop: 01/01/19 22:35 Last Admin: 11/06/18 07:25 Dose: 3 ml Atenolol (Tenormin) 25 mg GT DAILY [facility] Stop: 01/02/19 08:59 Last Admin: 11/06/18 10:52 Dose: 25 mg Dextromethorphan/Quinidine (Nuedexta 20mg-10mg) 1 cap GT BID [facility] Stop: 01/02/19 08:59 Last Admin: 11/06/18 10:57 Dose: 1 cap Heparin Sodium (Porcine) (Heparin) 5,000 units SUBQ Q12HR [facility] Stop: 01/02/19 20:59 Last Admin: 11/06/18 08:28 Dose: Not Given Ceftriaxone Sodium 1 gm/ (Sodium Chloride) 50 mls @ 100 mls/hr IV Q12HR [facility] Stop: 01/04/19 08:59 Last Admin: 11/06/18 08:24 Dose: 100 mls/hr Potassium Chloride 40 meq/Lidocaine HCl 25 mg/ Sodium Chloride 272.5 mls @ 68 mls/hr IV X1 ONE Stop: 11/06/18 14:30 Last Admin: 11/06/18 10:39 Dose: 68 mls/hr Dextrose/Sodium Chloride (D5-0.9%Ns) 1,000 mls @ 40 mls/hr IV .Q24H [facility] Stop: 01/05/19 09:44 Last Admin: 11/06/18 10:38 Dose: 40 mls/hr Lactobacillus Rhamnosus (Culturelle 15b) 1 each PO DAILY [facility] Stop: 01/02/19 15:59 Last Admin: 11/06/18 10:52 Dose: 1 each Lorazepam (Ativan) 0.5 mg IV Q4H PRN; Protocol PRN Reason: Agitation Stop: 01/01/19 22:39 Miscellaneous (Vte Chemical Prophylaxis Screen/ Admission) 1 ea PRN PRN PRN Reason: PROTOCOL Stop: 01/02/19 10:14 Miscellaneous (Probiotic Screen) 1 ea PRN PRN PRN Reason: PROTOCOL Stop: 01/02/19 14:58 Ondansetron HCl (Zofran) 4 mg IV Q8H PRN PRN Reason: Nausea / Vomiting Stop: 01/01/19 22:37 Pantoprazole Sodium (Protonix) 40 mg PO QDAC [facility] Stop: 01/02/19 07:29 Last Admin: 11/06/18 06:45 Dose: 40 mg Quetiapine Fumarate (Seroquel) 300 mg GT HS [facility] MANUEL; Protocol Stop: 01/02/19 20:59 Last Admin: 11/05/18 20:18 Dose: 300 mg Quetiapine Fumarate (Seroquel) 50 mg GT HS [facility] MANUEL; Protocol Stop: 01/02/19 20:59 Last Admin: 11/05/18 20:19 Dose: 50 mg Trazodone HCl (Desyrel) 25 mg GT HS [facility] MANULE; Protocol Stop: 01/02/19 20:59 Last Admin: 11/05/18 20:18 Dose: 25 mg Valproate Sodium (Depakene) 750 mg GT HS [facility] MANUEL; Protocol Stop: 01/02/19 20:59 Last Admin: 11/05/18 20:20 Dose: 750 mg Valproate Sodium (Depakene) 625 mg GT DAILY [facility] MANUEL; Protocol Stop: 01/02/19 08:59 Last Admin: 11/06/18 11:01 Dose: 625 mg General: congested, demented HEENT: NC/AT, PERRLA, EOMI Neck: Supple, No JVD, deformity Lungs: congested, rales, ronchi Cardiovascular: RRR, Normal S1, Normal S2 Abdomen: soft, non-tender, +GT - redness Extremities: excoriation, contracture Neurological: no change, disorganized, unable to follow command, bedbound - Procedures Procedures: Procedures Procedure Code Date ASSISTANCE WITH RESPIRATORY VENTILATION, 24-96 HRS, CPAP [id number] 11/03/17 CHANGE FEEDING DEVICE IN UP INTEST TRACT, ANNUAL GREENHOUSE MANAGER APPROACH [id number] 10/07/18 CHANGE GASTROSTOMY TUBE 53532 07/06/17 DRAINAGE OF STOMACH WITH DRAINAGE DEVICE, VIA OPENING [id number] 11/03/17 EGD BIOPSY SINGLE/MULTIPLE 19199 09/11/[address] GASTROSTOMY TUBE 38052 02/16/09 EXCISION OF STOMACH, ENDO, DIAGN [id number] 09/11/17 INSERT EMERGENCY AIRWAY 97336 12/21/16 INSERTION OF ENDOTRACHEAL AIRWAY INTO TRACHEA, VIA OPENING [id number] 12/21/16 INSERTION OF INFUSION DEVICE INTO R ATRIUM, PERC APPROACH [id number] 12/21/16 OTHER ENDOSCOPY OF SM INTEST 45.13 02/16/09 REPLACE GASTROSTOMY TUBE 97.02 02/16/09 RESPIRATORY VENTILATION, GREATER THAN 96 CONSECUTIVE HOURS [id number] 12/21/16 VENT MGMT INPAT INIT DAY 00159 12/21/16 VENT MGMT INPAT SUBQ DAY 51827 12/21/16 Internal Medicine Assmt/Plan - Assessment Assessment: ASSESSMENT AND PLAN: 1. G-tube cellulitis. 2. G-tube malfunction. 3. Mental retardation. 4. Psych disorder. 5. Bedbound. 6. Renal insufficiency. 7. Dehydration. congestion - Plan Plan: PLAN: We will continue the patient on IV hydration and place the patient on IV antibiotic. GI has been consulted. Placed a call to Dr. Garcia to possibly reinsert a G-tube in the morning. Put NG tube and medication was reconciled. Case was discussed with nursing staff. will give lasix check cxr Nutritional Asmnt/Malnutr-PDOC - Dietary Evaluation Malnutrition Findings (Please click <Entered> for more info): Nutritional Asmnt/Malnutrition Start: 11/03/18 14: 26 Text: Status: Complete Freq: Protocol: Document 11/03/18 14:27 [email or web address] (Rec: 11/03/18 14:42 [email or web address]) Nutritional Asmnt/Malnutrition Patient General Information Nutritional Screening High Risk Diagnosis G tube malfunction, cellulitis Pertinent Medical Hx/Surgical Hx HTN, mental retardation, mental disability, dysphagia w / g tube site disorder Subjective Information Pt was seen in bed at time of visit. Pt was NPO with NG tube in place. has placed order for Jevity 1.2 at 75ml/hr x 16hrs, on at 4pm and off at 8am. Current Diet Order/ Nutrition Support Jevity 1.2 75ml/hr x 16hrs Pertinent Medications d5-0.45ns, heparin, zofran, protonix, seroquel Pertinent Labs 11/02 BUN 28 Nutritional Hx/Data Height 1.68 m Height (Calculated Centimeters) 167.6 Current Weight (lbs) 72.121 kg Weight (Calculated Kilograms) 72.1 Weight (Calculated Grams) 66580.2 [place] Body Weight 142 Body Mass Index (BMI) 25.7 Weight Status Overweight GI Symptoms GI Symptoms None Last BM not indicated Difficult in: None Food Allergies No Usual diet at home per pt chart, TF with Jecity 1 .2 at 75ml/hr x 16hr at care facility Skin Integrity/Comment: anterior abdomen laceration, scar to lower anterior abdomen samantha 16 Estimated Nutritional Goals BEE in Kcals: Adj wt of IBW Calories/Kcals/Kg 23-27 Kcals Calculated 7897-7665 Protein: Adj wt of IBW Protein g/k Protein Calculated 66 Fluid: ml 1661-1994ml (1ml/kcal) Nutritional Problem No current Nutrition Prob Problem N/A Malnutrition Alert Is there a minimum of two criteria No selected? Query Text:Check all the applicable criteria. A minimum of two criteria are recommended for diagnosis of either severe or non-severe malnutrition. Malnutrition Related to Morbid Obesity Malnutrition related to morbid obesity No Intervention/Recommendation Comments 1. Continue with Jevity 1.2 at 75ml/hr x16hrs. It provides 1440kcal, 66g protein, 968ml free water, meeting 95% of calorie needs and 100% of protein needs. 2. Monitor TF rate, tolerance, wt, skin integrity and labs 3. F/U as moderate risk in 3-5 days Expected Outcomes/Goals Expected Outcomes/Goals 1. Pt to meet at least 90% of nutritional needs via nutrition support with tolerance 2. Wt stability, skin to remain intact, labs to approach WNL. Reviewed by Zita Zabala RD
[2018-11-07 05:40] LABS: HEMATOCRIT 36.6 % (41.0-60); HEMOGLOBIN 12.4 gm/dL (12-16); MEAN CELL VOLUME 91.6 fl (80-99); MEAN CORPUSCULAR HGB CONC 33.9 pg (28.0-36.0); PLATELET COUNT 177 Th/cmm (150-400); RED CELL DISTRIBUTION WIDTH 13.2 % (11.5-20.0); WHITE BLOOD COUNT 6.3 Th/cmm (4.8-10.8)
[2018-11-07 05:53] LABS: ANION GAP 11.1 (7.0-16.0); BUN - UREA NITROGEN 18 mg/dL (7-25); CALCIUM SERUM 8.7 mg/dL (8.6-10.3); CARBON DIOXIDE 29.2 mEq/L (21.0-31.0); CHLORIDE 104 mEq/L (98-107); CREATININE - SERUM 0.6 mg/dL (0.7-1.3); GFR AFRICAN-AMERICAN > 60.0 ml/min (>90); GFR NON AFRICAN-AMERICAN > 60.0 ml/min; GLUCOSE 80 mg/dL (70-105); MAGNESIUM 2.1 mg/dL (1.9-2.7); POTASSIUM SERUM 3.3 mEq/L (3.5-5.1); SODIUM SERUM 141 mEq/L (136-145)
[2018-11-07 05:57] LABS: INR 1.01 (0.5-1.4); PROTHROMBIN TIME (TEST) 10.5 SECONDS (9.5-11.5)
[2018-11-07 06:08] LABS: FOLIC ACID >20.0 ng/mL (>3.0)
[2018-11-07 06:37] LABS: BAND NEUTROPHILE 1 % (0-10); BASOPHIL 0 % (0-3); EOSINOPHIL 2 % (0-5); LYMPHOCYTE 25 % (20-50); MONOCYTE 14 % (2-10); NEUTROPHILS 58 % (40-80)
[2018-11-07] MEDS: Pantoprazole 40 mg/Packet PO SCH (06:44)
[2018-11-07] MEDS: Albuterol/Ipratropium Neb 3 ML AERS HHN PRN (07:12)
[2018-11-07] MEDS: cefTRIAXone 1 GM in Sodium Chloride 0.9% 50 ML IV SCH (08:16)
[2018-11-07] MEDS: Dextromethorphan/Quinidine 20mg/10mg Cap GT SCH ×2 (08:17→16:37)
[2018-11-07] MEDS: Lactobacillus Rhamnosus GG 15 Billion CFU CAP.SPRINK PO SCH (08:17)
[2018-11-07] MEDS: D5-0.9%NS 1,000 ML IV SCH (10:01)
--- NOTE | 2018-11-07 13:36 | Discharge Summary ---
DATE OF DISCHARGE: 11/07/2018 CHIEF COMPLAINT: G-tube accidentally pulled out. FINAL DIAGNOSES: G-tube cellulitis due to malfunction, urinary tract infection, mental retardation, psych disorder, bedbound, renal insufficiency, and dehydration. HISTORY: This is a 63-year-old male with history of hypertension, mental retardation, cerebral palsy, dysphagia with G-tube, psych disorder, admitted from nursing facility secondary to a G-tube that came off. The patient was evaluated in the ER and noted to have G-tube cellulitis and subsequently admitted for further management. PHYSICAL EXAMINATION: VITAL SIGNS: Blood pressure 100/51, respirations 17, pulse 65, temperature 96.6. GENERAL: Elderly male, appears chronically ill. NECK: Supple. No mass. LUNGS: Equal breath sounds, few rhonchi. HEART: Regular rate and rhythm with a systolic ejection murmur. ABDOMEN: Soft, globular. EXTREMITIES: Positive excoriation. ____ NG-tube. HOSPITAL COURSE: He has been admitted to medical floor, continue IV hydration and IV antibiotic and NG tube was placed. The patient was referred to Dr. Ayan Bloom for G-tube replacement. If the patient is stable, we will go ahead with continue care at [facility]. The patient is currently on IV antibiotic as well. We will charge to p.o. or G-tube. CONDITION ON DISCHARGE: Fair. DISCHARGE INSTRUCTIONS: The patient will have probable discharge today if the patient remains stable. PSYCHIATRIC# [id number]
[2018-11-07] MEDS ORDERED: Potassium Chloride 40 MEQ, Lidocaine 1% 20mL Vial 25 MG in Sodium Chloride 0.9% 250 ML IV ONE (14:00)
--- NOTE | 2018-11-07 15:10 | Operative Report ---
DATE OF SURGERY: 11/07/2018 INPATIENT GASTROINTESTINAL PROCEDURE NAME OF PROCEDURE: PEG tube placement. REFERRING PHYSICIAN: Dr. Thomas. REASON FOR PROCEDURE: Malfunctioning G-tube, dysphagia. CONSENT: Risks, benefits, alternatives, nature, indication, possible outcomes were discussed. Mentioned bleeding, infection, perforation, , disability, cardiopulmonary distress and arrest, missed lesion and cancers, need for surgery, cellulitis, malfunctioning feeding tube, the patient pulling out the feeding tube. The patient's agreeing constitution party provided informed consent. PREOPERATIVE DIAGNOSES: Malfunctioning G-tube, dysphagia. POSTOPERATIVE DIAGNOSIS: New PEG tube placement. MEDICATIONS: MAC by anesthesiologist. DESCRIPTION OF PROCEDURE: The patient was placed on his back. Upper endoscope advanced from mouth and second portion of duodenum. Scope brought back to the stomach. Retroflexion view of fundus, cardia, lesser curvature, scope was straightened. NG tube was then removed. At this point, the stomach was insufflated with air. The old G-tube site was identified. The fistulous tract was still open. Therefore, using a guidewire, we advanced it through the gastrocutaneous fistula entering the stomach lumen and capturing with a snare, pulled out through the oral end of the patient. PEG tube was attached to the oral end of the wire. The wire was pulled into position pulling along with it the PEG tube. Gastroscope readvanced back in the stomach where the bumper seen in satisfactory position. Scope was then removed. COMPLICATIONS: None. FINDINGS: PEG tube placed at the original G-tube site. RECOMMENDATIONS: 1. Use G-tube in 4 hours. 2. Check residual every 6 hours and hold if greater than 100 mL. 3. Abdominal binder to protect the G-tube. Thank you for allowing me to participate. Please call me if any questions. JOB# [id number]
[2018-11-07] MEDS ORDERED: Sulfamethoxazole/TMP 800/160mg Tab PO SCH (17:00)
== END 2018-11-07 20:02 | DRG 393 ==
LOC: ER 18:56 → MSI 20:37 → OBSVTOIN 20:37 → MSI 11-05 13:59
PROVIDERS: ADMIT Internal Medicine; ATTEND Internal Medicine
PROC: 0D20XUZ Change Feeding Device in Upper Intestinal Tract, External Approach (ICD-10-PCS; principal; 2018-11-07)
DX: K94.23 Gastrostomy malfunction (principal); A41.9 Sepsis, unspecified organism; L03.311 Cellulitis of abdominal wall; K94.22 Gastrostomy infection; I10 Essential (primary) hypertension; E86.0 Dehydration; Y83.8 Other surgical procedures as the cause of abnormal reaction of the patient, or of later complication, without mention of misadventure at the time of the procedure; Y92.89 Other specified places as the place of occurrence of the external cause; F79 Unspecified intellectual disabilities; F29 Unspecified psychosis not due to a substance or known physiological condition; N28.9 Disorder of kidney and ureter, unspecified; Z74.01 Bed confinement status
CPT/HCPCS: 36415-UA; 71045-TC; 80048-TC; 80053-TC; 82140-TC; 82607-90; 82746-90; 82948-90; 83735-TC; 83880-TC; 85007-TC; 85025-TC; 85610-TC; 85730-TC; 93005; 94760; J0692; J0696; J1644; J1940; J2001; J3480; J7030; J7042; Z7506; Z7610

== ENCOUNTER 2018-11-08 17:00 | Inpatient (IN) | payer MEDICARE, MEDICAID ==
[2018-11-08] MEDS ORDERED: Levofloxacin 500mg/100mL 500 MG/100 ML BAG IV ONE ×2 (17:48→18:39)
--- NOTE | 2018-11-08 17:48 | ED Physician Chart ---
ED Chief Complaint/HPI - Patient Information Date Seen:: 11/08/18 Time Seen:: 17:10 Chief Complaint:: Fever History of Present Illness:: onset x 3 days of fever, cough, and congestion; no report of trauma, LOC, ALOC, AMS, H/As, S/T, neck pain, C/P, SOB, Abd. Pain, A/N/V/D/C, chills, or urinary s/ s Allergies:: Allergies Allergy/AdvReac Type Severity Reaction Status Date / Time No Known Allergies Allergy Verified 11/02/18 19:03 Vitals:: Vital Signs - 8 hr 11/08/18 17:12 Temp 98.0 F HR 90 RR 21 BP 139/68 O2 Sat % 95 Historian:: Patient, EMS Review:: Nurse's Note Reviewed, Old Chart Reviewed, EMS run form Reviewed ED Review of Systems - Review of Systems General/Constitutional: Fever, No chills, No weight loss, No weakness, No diaphoresis, No edema, No loss of appetite Skin: No skin lesions, No rash, No bruising Head: No headache, No light-headedness Eyes: No loss of vision, No pain, No diplopia ENT: No earache, Nasal drainage, No sore throat, No tinnitus Neck: No neck pain, No swelling, No thyromegaly, No stiffness, No mass noted Cardio Vascular: No chest pain, No palpitations, No PND, No orthopnea, No edema Pulmonary: No SOB, Cough, No sputum, No wheezing GI: No nausea, No vomiting, No diarrhea, No pain, No melena, No hematochezia, No constipation, No hematemesis, Other (Dysphagia) G/U: No dysuria, No frequency, No hematuria, No nacturia Musculoskeletal: No bone or joint pain, No back pain, No muscle pain Endocrine: No polyuria, No polydipsia Psychiatric: Prior psych history, Depression, Anxiety, No suicidal ideation, No homicidal ideation, No auditory hallucination, No visual hallucination Hematopoietic: No bruising, No lymphadenopathy Allergic/Immuno: No urticaria, No angioedema Neurological: No syncope, No focal symptoms, No weakness, No paresthesia, No headache, Seizure, No dizziness, Confusion, No vertigo ED Past Medical History - Past Medical History Obtainable: Yes Past Medical History: HTN, Asthma/COPD, CVA/TIA, Dyslipidemia, PUD/GERD, Seizures, Arthritis, Dementia, Other (Respiratory Failure) Family History: HTN Social History: Non Smoker, No Alcohol, No Drug Use, Single, Care Facility Surgical History: PEG/GTube Psychiatricy History: Depression, Schizophrenia, Bipolar, Dementia Medication: Reviewed Family Medical History - Family Member Mother History Unknown: Yes Ethnicity: Unknown Living Status: Unknown Hx Family Cancer: No Hx Family Coronary Artery Disease: No Hx Family Congestive Heart Failure: No Hx Family Hypertension: No Hx Family Stroke: No Hx Family Diabetes: No Hx Family Seizures: No Hx Family Dementia: No Hx Family AIDS: No Hx Family HIV: Yes Hx Family COPD: No Hx Family Hepatitis: No Hx Family Psychiatric Problems: No Hx Family Tuberculosis: No ED Physical Exam - Physical Examination General/Constitutional: Awake, Well-developed, well-nourished, Alert, No distress, GCS 15, Non-toxic appearing, Ambulatory Head: Atraumatic Eyes: Lids, conjuctiva normal, PERRL, EOMI Skin: Nl inspection, No rash, No skin lesions, No ecchymosis, Well hydrated, No lymphadenopathy ENMT: External ears, nose nl, TM canals nl, Nasal exam nl, Lips, teeth, gums nl , Oropharynx nl, Tonsils nl Neck: Nontender, Full ROM w/o pain, No JVD, No nuchal rigidity, No bruit, No mass, No stridor Respiratory: Nl effort/Exclusion Other Respiratory comments:: Lungs: + Rales and Rhonchi Cardio Vascular: RRR, No murmur, gallop, rubs, NL S1 S2, Carotid/Femoral/Distal pulses equal bilaterally GI: No tenderness/rebounding/guarding, No organomegaly, No hernia, Normal BS's, Nondistended, No mass/bruits, No McBurney tenderness Other GI comments:: no pulsatile masses : No CVA tenderness Extremities: No tenderness or effusion, Full ROM, normal strength in all extremities, No edema, Normal digits & nails Neuro/Psych: Alert/oriented, DTR's symmetric, Normal sensory exam, Normal motor strength, Mood normal, No focal deficits Other Neuro/Psych comments:: Disoriented and Confused Misc: Normal back, No paraspinal tenderness ED Labs/Radiology/EKG Results - Lab Results Comments:: Reviewed - Radiology Results Comments:: CXR: CM; + Infiltrate - EKG Interpretations EKG Time:: 18:05 Rate & Rhythm: 77; NSR Comments:: non-specific st-t changes ED Septic Shock - . Is Septic Shock (SBP<90, OR Lactate>4 mmol\L) present?: No - <6hrs of presentation: Vital Signs: Vital Signs - 8 hr 11/08/18 17:12 Temp 98.0 F HR 90 RR 21 BP 139/68 O2 Sat % 95 ED Reassessment (Disposition) - Reassessment Reassessment Condition:: Improved - Diagnosis Diagnosis:: Fever; Cough; Congestion; PNA; Sepsis; Lactic Acidosis; Hypoalbuminemia; Elevated BNP and D-Dimer; Respiratory Failure; HTN; Encephalopathy; COPD - Aftercare/Follow up Instructions Aftercare/Follow-Up Instructions:: Counseled pt regarding lab results/diagnosis & need follow up, Counseled pt & family regarding lab results/diagnosis & need follow up - Patient Disposition Discharge/Transfer:: Acute Care w/in this hosp Accepting Physician:: Dr. Thomas Time Called:: 1899 Time Responded:: 19:00 Admitted to:: Telemetry Spoke to:: Dr. Thomas Admitting Medical Physician:: Dr. Thomas Condition at Disposition:: Stable, Improved
[2018-11-08 17:52] LABS: % BASOPHILS 0.2 % (0.0-2.0); % EOSINOPHILS 2.5 % (0.0-5.0); % LYMPHOCYTES 18.7 % (20.0-50.0); % MONOCYTES 13.9 % (2.0-10.0); % NEUTROPHILS 64.7 % (40.0-80.0); EOSINOPHILE ABSOLUTE 0.1 Th/cmm (0.1-0.4); HEMATOCRIT 34.9 % (41.0-60); LYMPHOCYTE ABSOLUTE 1.1 Th/cmm (1.5-3.0); MEAN CELL VOLUME 90.4 fl (80-99); MEAN CORPUSCULAR HGB CONC 34.2 pg (28.0-36.0); MEAN PLATELET VOLUME 9.3 fl; MONOCYTE ABSOLUTE 0.8 Th/cmm (0.3-1.0); NEUTROPHILE ABSOLUTE 3.7 Th/cmm (1.8-8.0); PLATELET COUNT 229 Th/cmm (150-400); RED BLOOD COUNT 3.86 Mil/cmm (3.80-5.80); RED CELL DISTRIBUTION WIDTH 13.1 % (11.5-20.0); WHITE BLOOD COUNT 5.7 Th/cmm (4.8-10.8)
[2018-11-08 17:59] LABS: INR 1.03 (0.5-1.4); PROTHROMBIN TIME (TEST) 10.7 SECONDS (9.5-11.5)
[2018-11-08 18:04] LABS: ALBUMIN 3.1 gm/dL (4.2-5.5); ALKALINE PHOSPHATASE 84 U/L (34-104); ANION GAP 14.6 (7.0-16.0); BILIRUBIN,TOTAL 0.6 mg/dL (0.3-1.0); BUN - UREA NITROGEN 22 mg/dL (7-25); CALCIUM SERUM 9.1 mg/dL (8.6-10.3); CHLORIDE 102 mEq/L (98-107); CHOLESTEROL 136 mg/dL (<200); CREATININE - SERUM 0.6 mg/dL (0.7-1.3); CREATININE KINASE 64 U/L (30-223); GFR AFRICAN-AMERICAN > 60.0 ml/min (>90); GFR NON AFRICAN-AMERICAN > 60.0 ml/min; GLUCOSE 73 mg/dL (70-105); HDL -HIGH DENSITY LIPOPROTEIN 22 mg/dL (23-92); POTASSIUM SERUM 3.6 mEq/L (3.5-5.1); SGOT 23 U/L (13-39); SGPT/ALT 10 U/L (7-52); SODIUM SERUM 140 mEq/L (136-145); TOTAL PROTEIN,SERUM 6.3 gm/dL (6.0-8.3); TRIGLYCERIDES 132 mg/dL (<150)
[2018-11-08 18:31] LABS: DDIMER QUANT 857 ng/mL (100-400)
[2018-11-08] MEDS ORDERED: Ipratropium Neb 0.5 mg/2.5 mL UD HHN PRN (19:51)
[2018-11-08] MEDS ORDERED: Albuterol Nebulizer 2.5mg/3mL HHN PRN (19:51)
[2018-11-08] MEDS ORDERED: Fleet Enema 135 mL RC PRN (19:51)
[2018-11-08] MEDS ORDERED: D5-0.45NS 1,000 ML IV SCH (20:00)
--- NOTE | 2018-11-08 20:55 | History & Physical ---
ADMIT DATE: 11/08/2018 INTERNAL MEDICINE HISTORY AND PHYSICAL CHIEF COMPLAINT: Low oxygen saturation and respiratory distress. HISTORY OF PRESENT ILLNESS: This is a 63-year-old male, well known to my service, recently discharged, status post G-tube replacement. Apparently, the patient was doing well. Today, he was tolerating G-tube and suddenly developed respiratory distress, oxygen saturation was in the low 80s at 10 liters of oxygen. The patient was brought into the ER and seen by Dr. Kerns. He was noted to have low oxygen saturation on room air, elevated D-dimer, and elevated lactic acid at 2.3. The patient's chest x-ray showed possible infiltrate. PAST MEDICAL HISTORY: As mentioned in the history of present illness. PAST SURGICAL HISTORY: Status post recent G-tube replacement. ALLERGIES: No known drug allergies. MEDICATIONS: Tylenol, albuterol, Atrovent, and Nuedexta. The patient was given Levaquin in the ER. The patient is on MiraLax, multivitamin, ____, trazodone, Depakote, and valproic acid. FAMILY HISTORY: Noncontributory. SOCIAL HISTORY: The patient is a senior living patient, requiring 24-hour total care. REVIEW OF SYSTEMS: This is limited secondary to the patient's current mental state. We will try to obtain more detailed review of systems at a later date by talking to family members. There is a conservator as well. I have also been getting some report from the director foundation ____ at [facility] at [phone]. PHYSICAL EXAMINATION: VITAL SIGNS: Blood pressure 124/73, respirations 22, pulse 90, temperature 98.0. GENERAL: Elderly male, appears in distress. NECK: Supple. LUNGS: Good breath sounds with few rhonchi. HEART: Regular rate and rhythm with systolic ejection murmur. ABDOMEN: Soft, globular. EXTREMITIES: Positive excoriation. NEUROLOGIC: Limited. LABORATORY DATA: WBC 5, hemoglobin 12, platelets 229. D-dimer is 857. Sodium 140, potassium 3.6, BUN 20, creatinine 0.6. INR is 2.27. BNP is 114. Albumin is 3.1. ASSESSMENT AND PLAN: Acute hypoxemic respiratory failure, pneumonia, possible aspiration, recent G-tube replacement, mental retardation, psych disorder, renal insufficiency, and bedbound. We will work up the patient for sepsis. We will check the patient's lactic acid. Continue on aggressive rehydration. We will start the patient on IV hydration. We will provide the patient with broad spectrum cephalosporins as well as Flagyl for antibiotic coverage. We will put the patient on IV steroids. We will review the patient's chest x-ray. We will refer the patient to Pulmonary and we will monitor the patient closely on telemetry. JOB# [id number]
[2018-11-08] MEDS: metroNIDAZOLE 500mg/NS 100mL 500 MG/100 ML BAG IV SCH (21:40)
[2018-11-08] MEDS: methylPREDNISolone SS 40 mg Vial IVP SCH (21:41)
[2018-11-09 03:38] VITALS: BP 131/69
[2018-11-09] MEDS: methylPREDNISolone SS 40 mg Vial IVP SCH ×3 (04:30→20:39)
[2018-11-09] MEDS: metroNIDAZOLE 500mg/NS 100mL 500 MG/100 ML BAG IV SCH ×3 (04:30→21:54)
[2018-11-09] MEDS: Albuterol Nebulizer 2.5mg/3mL HHN SCH ×4 (07:14→19:35)
[2018-11-09] MEDS: Ipratropium Neb 0.5 mg/2.5 mL UD HHN SCH ×4 (07:14→19:35)
[2018-11-09] MEDS: POLYETHYLENE GLYCOL 3350 17 GM PACK GT SCH (08:54)
[2018-11-09] MEDS: Pantoprazole 40 mg/Packet GT SCH (08:54)
[2018-11-09] MEDS: Dextromethorphan/Quinidine 20mg/10mg Cap GT SCH ×2 (08:55→17:45)
[2018-11-09] MEDS ORDERED: Non-Formulary Item 1 EA (Omeprazole [Omeprazole] 20 MG) GT SCH (09:00)
[2018-11-09] MEDS ORDERED: Non-Formulary Item 1 EA (Lactobacillus Acidophilus [Acidophilus] 1 EACH) GT SCH (09:00)
--- NOTE | 2018-11-09 10:32 | Diagnostic Imaging Report ---
Portable chest x-ray HISTORY: Pain Compared with prior exam of November 06, 2017, there is a poor inspiration. The heart appears somewhat enlarged. Density about the costophrenic angles bilaterally. Minimal pleural effusions cannot be excluded. IMPRESSION: 1. Suggestion of cardiomegaly 2. Question minimal bilateral pleural effusions
[2018-11-09] MEDS ORDERED: Propofol 10 mg/mL 20mL Vial **SURGERY USE ONLY IV ONE (13:00)
[2018-11-09] MEDS ORDERED: Lactated Ringer 1,000 ML IV ONE (13:00)
[2018-11-09] MEDS ORDERED: Lidocaine 2% Gel 5 mL TP ONE (13:00)
--- NOTE | 2018-11-09 13:24 | Internal Medicine Prog Note ---
Internal Medicine Subjective - Subjective Patient seen and examined:: with staff, chart reviewed Patient is:: awake, verbal, interactive, in bed Patient Complaints of:: congestion Per staff patient has:: no adverse event, no episodes of fall, choking, noncompliant, confused, tolerating meds Internal Medicine Objective - Results Result Diagrams: 11/08/18 17:30 11/08/18 17:30 Recent Labs: Laboratory Last Values WBC 5.7 Th/cmm (4.8-10.8) 11/08/18 17:30 RBC 3.86 Mil/cmm (3.80-5.80) 11/08/18 17:30 Hgb 12.0 gm/dL (12-16) 11/08/18: Hct 34.9 % (41.0-60) L 11/08/18:30 MCV 90.4 fl (80-99) 11/08/18: MCH 31.0 pg (27.0-31.0) 11/08/18: MCHC Differential 34.2 pg (28.0-36.0) 11/08/18 17: RDW 13.1 % (11.5-20.0) 11/08/18 17: Plt Count 229 Th/cmm (150-400) 11/08/18 17:30 MPV 9.3 fl 11/08/18 17:30 Neutrophils % 64.7 % (40.0-80.0) 11/08/18 17:30 Lymphocytes % 18.7 % (20.0-50.0) L 11/08/18: Monocytes % 13.9 % (2.0-10.0) H 11/08/18 17:30 Eosinophils % 2.5 % (0.0-5.0) 11/08/18 17: Basophils % 0.2 % (0.0-2.0) 11/08/18 17:30 PT 10.7 SECONDS (9.5-11.5) 11/08/18 17:30 INR 1.03 (0.5-1.4) 11/08/18 17:30 PTT (Actin FS) 30.4 SECONDS (26.0-38.0) 11/08/18 17:30 D-Dimer 857 ng/mL (100-400) H 11/08/18 17:30 Sodium 140 mEq/L (136-145) 11/08/18 17:30 Potassium 3.6 mEq/L (3.5-5.1) 11/08/18 17:30 Chloride 102 mEq/L (98-107) 11/08/18 17:30 Carbon Dioxide 27.0 mEq/L (21.0-31.0) 11/08/18 17:30 Anion Gap 14.6 (7.0-16.0) 11/08/18 17:30 BUN 22 mg/dL (7-25) 11/08/18 17:30 Creatinine 0.6 mg/dL (0.7-1.3) L 11/08/18 17:30 Est GFR ( Amer) > 60.0 ml/min (>90) 11/08/18 17:30 Est GFR (Non-Af Amer) > 60.0 ml/min 11/08/18 17:30 BUN/Creatinine Ratio 36.7 11/08/18 17:30 Glucose 73 mg/dL (70-105) 11/08/18 17:30 Whole Bld Lactic Acid 1.71 mmol/L (0.60-1.99) 11/08/18 19:25 Calcium 9.1 mg/dL (8.6-10.3) 11/08/18 17:30 Total Bilirubin 0.6 mg/dL (0.3-1.0) 11/08/18 17:30 AST 23 U/L (13-39) 11/08/18 17:30 ALT 10 U/L (7-52) 11/08/18 17:30 Alkaline Phosphatase 84 U/L (34-104) 11/08/18 17:30 Creatine Kinase 64 U/L (30-223) 11/08/18 17:30 Troponin I < 0.01 ng/mL (0.01-0.05) L 11/08/18 17:30 B-Natriuretic Peptide 114.0 pg/mL (5.0-100.0) H 11/08/18 17:30 Total Protein 6.3 gm/dL (6.0-8.3) 11/08/18 17:30 Albumin 3.1 gm/dL (4.2-5.5) L 11/08/18 17:30 Globulin 3.2 gm/dL 11/08/18 17:30 Albumin/Globulin Ratio 1.0 (1.0-1.8) 11/08/18 17:30 Triglycerides 132 mg/dL (<150) 11/08/18 17:30 Cholesterol 136 mg/dL (<200) 11/08/18 17:30 LDL Cholesterol Direct 105 mg/dL (75-193) 11/08/18 17:30 HDL Cholesterol 22 mg/dL (23-92) L 11/08/18 17:30 - Physical Exam Vitals and I&O: Vital Signs Temp 97.3 F 11/09/18 12:15 Pulse 83 11/09/18 12:15 Resp 18 11/09/18 12:15 BP 112/59 11/09/18 12:15 Pulse Ox 92 11/09/18 12:15 Intake & Output 11/08/18 11/09/18 11/09/18 18:59 06:59 18:59 Intake Total 150 Balance 150 Weight (lbs) 74.843 kg Intake: Intake, IV Amount 150 Cefepime 1 gm In Dextrose 50 5% 50 ml @ 100 mls/hr IV Q12H [facility] Rx#:[id number] metroNIDAZOLE 500mg/NS 100 100mL 500 mg In 100 ml @ 100 mls/hr IV Q8HR [facility] Rx #:[id number] Other: Weight Source Estimated Active Medications: Current Medications Acetaminophen (Tylenol 650mg Supp) 650 mg RC Q4HR PRN PRN Reason: TEMP >100 Stop: 01/07/19 19:50 Albuterol Sulfate (Albuterol 2.5mg/3ml Neb Ud) 2.5 mg HHN Q4HR PRN PRN Reason: Congestion Stop: 01/07/19 19:50 Albuterol Sulfate (Albuterol 2.5mg/3ml Neb Ud) 2.5 mg HHN QIDRT [facility] Stop: 01/08/19 06:59 Last Admin: 11/09/18 10:48 Dose: 2.5 mg Atenolol (Tenormin) 25 mg GT DAILY [facility] Stop: 01/08/19 08:59 Last Admin: 11/09/18 08:57 Dose: 25 mg Bisacodyl (Dulcolax 10 Mg Supp) 10 mg RC PRN PRN PRN Reason: IF MOM INEFFECTIVE Stop: 01/07/19 19:50 Dextromethorphan/Quinidine (Nuedexta 20mg-10mg) 1 cap GT BID [facility] Stop: 01/08/19 08:59 Last Admin: 11/09/18 08:55 Dose: 1 cap Cefepime HCl 1 gm/ Dextrose 50 mls @ 100 mls/hr IV Q12H [facility] Stop: 01/07/19 19:59 Last Admin: 11/09/18 08:54 Dose: 100 mls/hr Metronidazole (Flagyl) 500 mg in 100 mls @ 100 mls/hr IV Q8HR [facility] Stop: 01/07/19 20:59 Last Admin: 11/09/18 04:30 Dose: 100 mls/hr Dextrose/Sodium Chloride (D5-0.45ns) 1,000 mls @ 70 mls/hr IV .[id number] [facility] Stop: 01/08/19 13:29 Ipratropium [place] (Atrovent Neb 0.5mg/2.5ml) 0.5 mg HHN Q4HR PRN PRN Reason: Congestion Stop: 01/07/19 19:50 Ipratropium [place] (Atrovent Neb 0.5mg/2.5ml) 0.5 mg HHN QIDRT [facility] Stop: 01/08/19 06:59 Last Admin: 11/09/18 10:48 Dose: 0.5 mg Methylprednisolone Sodium Succinate (Solu-Medrol) 40 mg IVP Q8HR [facility] Stop: 01/07/19 20:59 Last Admin: 11/09/18 04:30 Dose: 40 mg Ondansetron HCl (Zofran) 4 mg IV Q8H PRN PRN Reason: Nausea / Vomiting Stop: 01/07/19 19:53 Pantoprazole Sodium (Protonix) 40 mg GT DAILY [facility] Stop: 01/08/19 08:59 Last Admin: 11/09/18 08:54 Dose: 40 mg Polyethylene Glycol (Miralax) 17 gm GT DAILY [facility] Stop: 01/08/19 08:59 Last Admin: 11/09/18 08:54 Dose: 17 gm Quetiapine Fumarate (Seroquel) 350 mg GT HS [facility]; Protocol Stop: 01/07/19 20:59 Last Admin: 11/08/18 23:26 Dose: 350 mg Quetiapine Fumarate (Seroquel) 200 mg GT DAILY [facility] Stop: 01/08/19 08:59 Last Admin: 11/09/18 08:54 Dose: 200 mg Sodium Phosphate (Fleet Enema) 135 ml RC PRN PRN PRN Reason: IF DULCOLAX INEFFECTIVE Stop: 01/07/19 19:50 Trazodone HCl (Desyrel) 25 mg GT HS [facility]; Protocol Stop: 01/07/19 20:59 Last Admin: 11/08/18 23:28 Dose: 25 mg Valproate Sodium (Depakene) 750 mg GT HS [facility]; Protocol Stop: 01/07/19 20:59 Last Admin: 11/08/18 23:29 Dose: 750 mg Valproate Sodium (Depakene) 625 mg GT DAILY [facility] Stop: 01/08/19 08:59 Last Admin: 11/09/18 08:55 Dose: 625 mg General: congested, demented HEENT: NC/AT, PERRLA Neck: Supple, No JVD Lungs: congested, rales, ronchi Cardiovascular: RRR, Normal S1, Normal S2, without murmur Abdomen: soft, globular, +GT Extremities: excoriation, contracture Neurological: no change, disorganized - Procedures Procedures: Procedures Procedure Code Date ASSISTANCE WITH RESPIRATORY VENTILATION, 24-96 HRS, CPAP [id number] 11/03/17 CHANGE FEEDING DEVICE IN UP INTEST TRACT, AQUATIC PERFORMER APPROACH [id number] 11/02/18 CHANGE GASTROSTOMY TUBE 44406 07/06/17 DRAINAGE OF STOMACH WITH DRAINAGE DEVICE, VIA OPENING [id number] 11/03/17 EGD BIOPSY SINGLE/MULTIPLE 70997 09/11/[address] GASTROSTOMY TUBE 52478 02/16/09 EXCISION OF STOMACH, ENDO, DIAGN [id number] 09/11/17 INSERT EMERGENCY AIRWAY 10428 12/21/16 INSERTION OF ENDOTRACHEAL AIRWAY INTO TRACHEA, VIA OPENING [id number] 12/21/16 INSERTION OF INFUSION DEVICE INTO R ATRIUM, PERC APPROACH [id number] 12/21/16 OTHER ENDOSCOPY OF SM INTEST 45.13 02/16/09 REPLACE GASTROSTOMY TUBE 97.02 02/16/09 RESPIRATORY VENTILATION, GREATER THAN 96 CONSECUTIVE HOURS [id number] 12/21/16 VENT MGMT INPAT INIT DAY 23244 12/21/16 VENT MGMT INPAT SUBQ DAY 93803 12/21/16 Internal Medicine Assmt/Plan - Assessment Assessment: ASSESSMENT AND PLAN: Acute hypoxemic respiratory failure, pneumonia, possible aspiration, recent G-tube replacement, mental retardation, psych disorder, renal insufficiency, and bedbound. - Plan Plan: We will work up the patient for sepsis. We will check the patient's lactic acid. Continue on aggressive rehydration. We will start the patient on IV hydration. We will provide the patient with broad spectrum cephalosporins as well as Flagyl for antibiotic coverage. We will put the patient on IV steroids. We will review the patient's chest x-ray. We will refer the patient to Pulmonary and we will monitor the patient closely on telemetry.
[2018-11-10] MEDS: D5-0.45NS 1,000 ML IV SCH ×2 (03:57→20:43)
[2018-11-10] MEDS: methylPREDNISolone SS 40 mg Vial IVP SCH ×3 (04:57→20:41)
[2018-11-10] MEDS: metroNIDAZOLE 500mg/NS 100mL 500 MG/100 ML BAG IV SCH ×3 (04:57→20:39)
[2018-11-10 05:51] LABS: HEMATOCRIT 34.9 % (41.0-60); HEMOGLOBIN 11.6 gm/dL (12-16); MEAN CELL VOLUME 93.3 fl (80-99); MEAN CORPUSCULAR HGB CONC 33.2 pg (28.0-36.0); MEAN PLATELET VOLUME 9.1 fl; PLATELET COUNT 240 Th/cmm (150-400); RED BLOOD COUNT 3.74 Mil/cmm (3.80-5.80); RED CELL DISTRIBUTION WIDTH 13.3 % (11.5-20.0); WHITE BLOOD COUNT 8.9 Th/cmm (4.8-10.8)
[2018-11-10 06:04] LABS: ANION GAP 12.4 (7.0-16.0); BUN - UREA NITROGEN 24 mg/dL (7-25); CALCIUM SERUM 8.8 mg/dL (8.6-10.3); CARBON DIOXIDE 27.4 mEq/L (21.0-31.0); CHLORIDE 106 mEq/L (98-107); CREATININE - SERUM 0.6 mg/dL (0.7-1.3); GFR AFRICAN-AMERICAN > 60.0 ml/min (>90); GFR NON AFRICAN-AMERICAN > 60.0 ml/min; GLUCOSE 123 mg/dL (70-105); MAGNESIUM 2.2 mg/dL (1.9-2.7); POTASSIUM SERUM 3.8 mEq/L (3.5-5.1); SODIUM SERUM 142 mEq/L (136-145)
[2018-11-10 06:38] LABS: BAND NEUTROPHILE 2 % (0-10); BASOPHIL 0 % (0-3); EOSINOPHIL 0 % (0-5); LYMPHOCYTE 5 % (20-50); MONOCYTE 3 % (2-10); NEUTROPHILS 90 % (40-80)
[2018-11-10] MEDS: Ipratropium Neb 0.5 mg/2.5 mL UD HHN SCH ×4 (07:01→19:03)
[2018-11-10] MEDS: Albuterol Nebulizer 2.5mg/3mL HHN SCH ×4 (07:01→19:02)
[2018-11-10] MEDS: Dextromethorphan/Quinidine 20mg/10mg Cap GT SCH ×2 (08:59→16:58)
[2018-11-10] MEDS: POLYETHYLENE GLYCOL 3350 17 GM PACK GT SCH (08:59)
[2018-11-10] MEDS: Pantoprazole 40 mg/Packet GT SCH (09:00)
--- NOTE | 2018-11-10 12:35 | Internal Medicine Prog Note ---
Internal Medicine Subjective - Subjective Patient seen and examined:: with staff, chart reviewed Patient is:: awake, verbal, interactive, in bed Patient Complaints of:: congestion Per staff patient has:: no adverse event, no episodes of fall, choking, noncompliant, confused, tolerating meds Internal Medicine Objective - Results Result Diagrams: 11/10/18 05:00 11/10/18 05:00 Recent Labs: Laboratory Last Values WBC 8.9 Th/cmm (4.8-10.8) 11/10/18 05:00 RBC 3.74 Mil/cmm (3.80-5.80) L 11/10/18 05:00 Hgb 11.6 gm/dL (12-16) L 11/10/18 05:00 Hct 34.9 % (41.0-60) L 11/10/18 05:00 MCV 93.3 fl (80-99) 11/10/18 05:00 MCH 31.0 pg (27.0-31.0) 11/10/18 05:00 MCHC Differential 33.2 pg (28.0-36.0) 11/10/18 05:00 RDW 13.3 % (11.5-20.0) 11/10/18 05:00 Plt Count 240 Th/cmm (150-400) 11/10/18 05:00 MPV 9.1 fl 11/10/18 05:00 Add Manual Diff YES 11/10/18 05:00 Neutrophils % 64.7 % (40.0-80.0) 11/08/18 17:30 Band Neutrophils % 2 % (0-10) 11/10/18 05:00 Lymphocytes % 18.7 % (20.0-50.0) L 11/08/18 17:30 Monocytes % 13.9 % (2.0-10.0) H 11/08/18 17:30 Eosinophils % 2.5 % (0.0-5.0) 11/08/18 17:30 Basophils % 0.2 % (0.0-2.0) 11/08/18 17:30 Neutrophils (Manual) 90 % (40-80) H 11/10/18 05:00 Lymphocytes 5 % (20-50) L 11/10/18 05:00 Monocytes 3 % (2-10) 11/10/18 05:00 Eosinophils 0 % (0-5) 11/10/18 05:00 Basophils 0 % (0-3) 11/10/18 05:00 PT 10.7 SECONDS (9.5-11.5) 11/08/18 17:30 INR 1.03 (0.5-1.4) 11/08/18 17:30 PTT (Actin FS) 30.4 SECONDS (26.0-38.0) 11/08/18 17:30 D-Dimer 857 ng/mL (100-400) H 11/08/18 17:30 Sodium 142 mEq/L (136-145) 11/10/18 05:00 Potassium 3.8 mEq/L (3.5-5.1) 11/10/18 05:00 Chloride 106 mEq/L (98-107) 11/10/18 05:00 Carbon Dioxide 27.4 mEq/L (21.0-31.0) 11/10/18 05:00 Anion Gap 12.4 (7.0-16.0) 11/10/18 05:00 BUN 24 mg/dL (7-25) 11/10/18 05:00 Creatinine 0.6 mg/dL (0.7-1.3) L 11/10/18 05:00 Est GFR ( Amer) > 60.0 ml/min (>90) 11/10/18 05:00 Est GFR (Non-Af Amer) > 60.0 ml/min 11/10/18 05:00 BUN/Creatinine Ratio 40.0 11/10/18 05:00 Glucose 123 mg/dL (70-105) H 11/10/18 05:00 Whole Bld Lactic Acid 1.71 mmol/L (0.60-1.99) 11/08/18 19:25 Calcium 8.8 mg/dL (8.6-10.3) 11/10/18 05:00 Magnesium 2.2 mg/dL (1.9-2.7) 11/10/18 05:00 Total Bilirubin 0.6 mg/dL (0.3-1.0) 11/08/18 17:30 AST 23 U/L (13-39) 11/08/18 17:30 ALT 10 U/L (7-52) 11/08/18 17:30 Alkaline Phosphatase 84 U/L (34-104) 11/08/18 17:30 Creatine Kinase 64 U/L (30-223) 11/08/18 17:30 Troponin I < 0.01 ng/mL (0.01-0.05) L 11/08/18 17:30 B-Natriuretic Peptide 114.0 pg/mL (5.0-100.0) H 11/08/18 17:30 Total Protein 6.3 gm/dL (6.0-8.3) 11/08/18 17:30 Albumin 3.1 gm/dL (4.2-5.5) L 11/08/18 17:30 Globulin 3.2 gm/dL 11/08/18 17:30 Albumin/Globulin Ratio 1.0 (1.0-1.8) 11/08/18 17:30 Triglycerides 132 mg/dL (<150) 11/08/18 17:30 Cholesterol 136 mg/dL (<200) 11/08/18 17:30 LDL Cholesterol Direct 105 mg/dL (75-193) 11/08/18 17:30 HDL Cholesterol 22 mg/dL (23-92) L 11/08/18 17:30 - Physical Exam Vitals and I&O: Vital Signs Temp 98.0 F 11/10/18 11:34 Pulse 74 11/10/18 11:48 Resp 18 11/10/18 11:48 BP 132/62 11/10/18 11:34 Pulse Ox 97 11/10/18 11:48 Intake & Output 11/09/18 11/10/18 11/10/18 18:59 06:59 18:59 Intake Total 150 1254.833 Balance 150 1254.833 Weight (lbs) 72.206 kg Intake: Intake, IV Amount 150 337.833 Cefepime 1 gm In Dextrose 50 50 5% 50 ml @ 100 mls/hr IV Q12H [facility] Rx#:[id number] D5-0.45NS 1,000 ml @ 70 187.833 mls/hr IV .[id number] [facility] Rx #:[id number] metroNIDAZOLE 500mg/NS 100 100 100mL 500 mg In 100 ml @ 100 mls/hr IV Q8HR [facility] Rx #:[id number] Oral 240 Tube Feeding 677 Other: # Voids 2 # Bowel Movements 1 Stool Characteristics Soft Liquid Weight Source Bedscale Active Medications: Current Medications Acetaminophen (Tylenol 650mg Supp) 650 mg RC Q4HR PRN PRN Reason: TEMP >100 Stop: 01/07/19 19:50 Albuterol Sulfate (Albuterol 2.5mg/3ml Neb Ud) 2.5 mg HHN Q4HR PRN PRN Reason: Congestion Stop: 01/07/19 19:50 Albuterol Sulfate (Albuterol 2.5mg/3ml Neb Ud) 2.5 mg HHN QIDRT [facility] Stop: 01/08/19 06:59 Last Admin: 11/10/18 11:48 Dose: 2.5 mg Atenolol (Tenormin) 25 mg GT DAILY [facility] Stop: 01/08/19 08:59 Last Admin: 11/10/18 09:00 Dose: 25 mg Bisacodyl (Dulcolax 10 Mg Supp) 10 mg RC PRN PRN PRN Reason: IF MOM INEFFECTIVE Stop: 01/07/19 19:50 Dextromethorphan/Quinidine (Nuedexta 20mg-10mg) 1 cap GT BID [facility] Stop: 01/08/19 08:59 Last Admin: 11/10/18 08:59 Dose: 1 cap Cefepime HCl 1 gm/ Dextrose 50 mls @ 100 mls/hr IV Q12H [facility] Stop: 01/07/19 19:59 Last Admin: 11/10/18 08:00 Dose: 100 mls/hr Metronidazole (Flagyl) 500 mg in 100 mls @ 100 mls/hr IV Q8HR [facility] Stop: 01/07/19 20:59 Last Admin: 11/10/18 04:57 Dose: 100 mls/hr Dextrose/Sodium Chloride (D5-0.45ns) 1,000 mls @ 70 mls/hr IV .[id number] [facility] Stop: 01/08/19 13:29 Last Infusion: 11/10/18 06:38 Dose: 70 mls/hr Ipratropium [place] (Atrovent Neb 0.5mg/2.5ml) 0.5 mg HHN Q4HR PRN PRN Reason: Congestion Stop: 01/07/19 19:50 Ipratropium [place] (Atrovent Neb 0.5mg/2.5ml) 0.5 mg HHN QIDRT [facility] Stop: 01/08/19 06:59 Last Admin: 11/10/18 11:48 Dose: 0.5 mg Methylprednisolone Sodium Succinate (Solu-Medrol) 40 mg IVP Q8HR [facility] Stop: 01/07/19 20:59 Last Admin: 11/10/18 04:57 Dose: 40 mg Ondansetron HCl (Zofran) 4 mg IV Q8H PRN PRN Reason: Nausea / Vomiting Stop: 01/07/19 19:53 Pantoprazole Sodium (Protonix) 40 mg GT DAILY [facility] Stop: 01/08/19 08:59 Last Admin: 11/10/18 09:00 Dose: 40 mg Polyethylene Glycol (Miralax) 17 gm GT DAILY [facility] Stop: 01/08/19 08:59 Last Admin: 11/10/18 08:59 Dose: 17 gm Quetiapine Fumarate (Seroquel) 350 mg GT HS [facility]; Protocol Stop: 01/07/19 20:59 Last Admin: 11/09/18 20:40 Dose: 350 mg Quetiapine Fumarate (Seroquel) 200 mg GT DAILY [facility] Stop: 01/08/19 08:59 Last Admin: 11/10/18 08:59 Dose: 200 mg Sodium Phosphate (Fleet Enema) 135 ml RC PRN PRN PRN Reason: IF DULCOLAX INEFFECTIVE Stop: 01/07/19 19:50 Trazodone HCl (Desyrel) 25 mg GT HS [facility]; Protocol Stop: 01/07/19 20:59 Last Admin: 11/09/18 20:39 Dose: 25 mg Valproate Sodium (Depakene) 750 mg GT HS [facility]; Protocol Stop: 01/07/19 20:59 Last Admin: 11/09/18 20:39 Dose: 750 mg Valproate Sodium (Depakene) 625 mg GT DAILY [facility] Stop: 01/08/19 08:59 Last Admin: 11/10/18 09:00 Dose: 625 mg General: congested, demented HEENT: NC/AT, PERRLA Neck: Supple, No JVD Lungs: congested, rales, ronchi Cardiovascular: RRR, Normal S1, Normal S2, without murmur Abdomen: soft, globular, +GT Extremities: excoriation, contracture Neurological: no change, disorganized - Procedures Procedures: Procedures Procedure Code Date ASSISTANCE WITH RESPIRATORY VENTILATION, 24-96 HRS, CPAP [id number] 11/03/17 CHANGE FEEDING DEVICE IN UP INTEST TRACT, 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 3U02ING 11/02/18 CHANGE GASTROSTOMY TUBE 60093 07/06/17 DRAINAGE OF STOMACH WITH DRAINAGE DEVICE, VIA OPENING [id number] 11/03/17 EGD BIOPSY SINGLE/MULTIPLE 50109 09/11/[address] GASTROSTOMY TUBE 24263 02/16/09 EXCISION OF STOMACH, ENDO, DIAGN [id number] 09/11/17 INSERT EMERGENCY AIRWAY 13620 12/21/16 INSERTION OF ENDOTRACHEAL AIRWAY INTO TRACHEA, VIA OPENING [id number] 12/21/16 INSERTION OF INFUSION DEVICE INTO R ATRIUM, PERC APPROACH [id number] 12/21/16 OTHER ENDOSCOPY OF SM INTEST 45.13 02/16/09 REPLACE GASTROSTOMY TUBE 97.02 02/16/09 RESPIRATORY VENTILATION, GREATER THAN 96 CONSECUTIVE HOURS [id number] 12/21/16 VENT MGMT INPAT INIT DAY 50547 12/21/16 VENT MGMT INPAT SUBQ DAY 33078 12/21/16 Internal Medicine Assmt/Plan - Assessment Assessment: ASSESSMENT AND PLAN: Acute hypoxemic respiratory failure, pneumonia, possible aspiration, recent G-tube replacement, mental retardation, psych disorder, renal insufficiency, and bedbound. - Plan Plan: We will work up the patient for sepsis. We will check the patient's lactic acid. Continue on aggressive rehydration. We will start the patient on IV hydration. We will provide the patient with broad spectrum cephalosporins as well as Flagyl for antibiotic coverage. We will put the patient on IV steroids. We will review the patient's chest x-ray. We will refer the patient to Pulmonary and we will monitor the patient closely on telemetry.
[2018-11-10 22:39] LABS: URINE SOURCE RANDOM
[2018-11-10 22:45] LABS: URINE BILIRUBIN NEGATIVE (NEGATIVE); URINE BLOOD NEGATIVE (NEGATIVE); URINE GLUCOSE (UA) NEGATIVE (NEGATIVE); URINE KETONE TRACE mg/dL (NEGATIVE); URINE LEUKOCYTE ESTERASE NEGATIVE (NEGATIVE); URINE MICROSCOPIC INDICATED? YES; URINE NITRATE POSITIVE (NEGATIVE); URINE PROTEIN TRACE mg/dL (NEGATIVE)
[2018-11-10 23:22] LABS: URINE COLOR STRAW
[2018-11-10 23:24] LABS: URINE CLARITY SLIGHT HAZY (CLEAR)
[2018-11-10 23:29] LABS: URINE RBC NONE SEEN /hpf (0-5)
[2018-11-10 23:30] LABS: URINE WBC 0-2 /hpf (0-5)
[2018-11-10 23:31] LABS: URINE BACTERIA OCCASIONAL /hpf (NONE SEEN); URINE EPITHELIAL CELLS RARE /lpf (FEW)
[2018-11-11] MEDS: metroNIDAZOLE 500mg/NS 100mL 500 MG/100 ML BAG IV SCH ×3 (04:43→21:43)
[2018-11-11] MEDS: methylPREDNISolone SS 40 mg Vial IVP SCH ×2 (04:43→21:43)
[2018-11-11 06:38] LABS: HEMATOCRIT 32.7 % (41.0-60); MEAN CELL VOLUME 92.8 fl (80-99); MEAN CORPUSCULAR HEMOGLOBIN 31.3 pg (27.0-31.0); MEAN CORPUSCULAR HGB CONC 33.7 pg (28.0-36.0); MEAN PLATELET VOLUME 8.9 fl; PLATELET COUNT 243 Th/cmm (150-400); RED BLOOD COUNT 3.53 Mil/cmm (3.80-5.80); RED CELL DISTRIBUTION WIDTH 13.4 % (11.5-20.0); WHITE BLOOD COUNT 8.5 Th/cmm (4.8-10.8)
[2018-11-11 07:24] LABS: GLUCOSE 160 mg/dL (70-105)
[2018-11-11] MEDS: Albuterol Nebulizer 2.5mg/3mL HHN SCH ×4 (07:35→19:27)
[2018-11-11] MEDS: Ipratropium Neb 0.5 mg/2.5 mL UD HHN SCH ×4 (07:35→19:28)
[2018-11-11 07:48] LABS: BAND NEUTROPHILE 2 % (0-10); BASOPHIL 0 % (0-3); EOSINOPHIL 0 % (0-5); LYMPHOCYTE 10 % (20-50); MONOCYTE 3 % (2-10); NEUTROPHILS 85 % (40-80)
--- NOTE | 2018-11-11 08:31 | Diagnostic Imaging Report ---
Portable chest x-ray History: Shortness of breath Allowing for portable technique the heart size is normal. Slight accentuation of the lower interstitial lung markings. No focal pulmonary parenchymal processes. No hilar or mediastinal abnormalities. Impression: No acute focal abnormalities.
[2018-11-11] MEDS: POLYETHYLENE GLYCOL 3350 17 GM PACK GT SCH (08:48)
[2018-11-11] MEDS: Pantoprazole 40 mg/Packet GT SCH (08:49)
[2018-11-11] MEDS: Dextromethorphan/Quinidine 20mg/10mg Cap GT SCH ×2 (08:49→16:03)
[2018-11-11 09:14] LABS: ANION GAP 10.6 (7.0-16.0); BUN - UREA NITROGEN 36 mg/dL (7-25); CALCIUM SERUM 8.5 mg/dL (8.6-10.3); CARBON DIOXIDE 29.6 mEq/L (21.0-31.0); CHLORIDE 105 mEq/L (98-107); CREATININE - SERUM 0.6 mg/dL (0.7-1.3); GFR AFRICAN-AMERICAN > 60.0 ml/min (>90); GFR NON AFRICAN-AMERICAN > 60.0 ml/min; POTASSIUM SERUM 4.2 mEq/L (3.5-5.1); SODIUM SERUM 141 mEq/L (136-145)
--- NOTE | 2018-11-11 10:23 | Internal Medicine Prog Note ---
Internal Medicine Subjective - Subjective Patient seen and examined:: with staff, chart reviewed Patient is:: awake, verbal, interactive, in bed Patient Complaints of:: congestion Per staff patient has:: no adverse event, no episodes of fall, choking, noncompliant, confused, tolerating meds Internal Medicine Objective - Results Result Diagrams: 11/11/18 06:14 11/11/18 06:14 Recent Labs: Laboratory Last Values WBC 8.5 Th/cmm (4.8-10.8) 11/11/18 06:14 RBC 3.53 Mil/cmm (3.80-5.80) L 11/11/18 06:14 Hgb 11.0 gm/dL (12-16) L 11/11/18 06:14 Hct 32.7 % (41.0-60) L 11/11/18 06:14 MCV 92.8 fl (80-99) 11/11/18 06:14 MCH 31.3 pg (27.0-31.0) H 11/11/18 06:14 MCHC Differential 33.7 pg (28.0-36.0) 11/11/18 06:14 RDW 13.4 % (11.5-20.0) 11/11/18 06:14 Plt Count 243 Th/cmm (150-400) 11/11/18 06:14 MPV 8.9 fl 11/11/18 06:14 Add Manual Diff YES 11/11/18 06:14 Neutrophils % 64.7 % (40.0-80.0) 11/08/18 17:30 Band Neutrophils % 2 % (0-10) 11/11/18 06:14 Lymphocytes % 18.7 % (20.0-50.0) L 11/08/18 17:30 Monocytes % 13.9 % (2.0-10.0) H 11/08/18 17:30 Eosinophils % 2.5 % (0.0-5.0) 11/08/18 17:30 Basophils % 0.2 % (0.0-2.0) 11/08/18 17:30 Neutrophils (Manual) 85 % (40-80) H 11/11/18 06:14 Lymphocytes 10 % (20-50) L 11/11/18 06:14 Monocytes 3 % (2-10) 11/11/18 06:14 Eosinophils 0 % (0-5) 11/11/18 06:14 Basophils 0 % (0-3) 11/11/18 06:14 PT 10.7 SECONDS (9.5-11.5) 11/08/18 17:30 INR 1.03 (0.5-1.4) 11/08/18 17:30 PTT (Actin FS) 30.4 SECONDS (26.0-38.0) 11/08/18 17:30 D-Dimer 857 ng/mL (100-400) H 11/08/18 17:30 Sodium 141 mEq/L (136-145) 11/11/18 06:14 Potassium 4.2 mEq/L (3.5-5.1) 11/11/18 06:14 Chloride 105 mEq/L (98-107) 11/11/18 06:14 Carbon Dioxide 29.6 mEq/L (21.0-31.0) 11/11/18 06:14 Anion Gap 10.6 (7.0-16.0) 11/11/18 06:14 BUN 36 mg/dL (7-25) H 11/11/18 06:14 Creatinine 0.6 mg/dL (0.7-1.3) L 11/11/18 06:14 Est GFR ( Amer) > 60.0 ml/min (>90) 11/11/18 06:14 Est GFR (Non-Af Amer) > 60.0 ml/min 11/11/18 06:14 BUN/Creatinine Ratio 60.0 11/11/18 06:14 Glucose 160 mg/dL (70-105) H 11/11/18 06:14 Whole Bld Lactic Acid 1.71 mmol/L (0.60-1.99) 11/08/18 19:25 Calcium 8.5 mg/dL (8.6-10.3) L 11/11/18 06:14 Magnesium 2.2 mg/dL (1.9-2.7) 11/10/18 05:00 Total Bilirubin 0.6 mg/dL (0.3-1.0) 11/08/18 17:30 AST 23 U/L (13-39) 11/08/18 17:30 ALT 10 U/L (7-52) 11/08/18 17:30 Alkaline Phosphatase 84 U/L (34-104) 11/08/18 17:30 Creatine Kinase 64 U/L (30-223) 11/08/18 17:30 Troponin I < 0.01 ng/mL (0.01-0.05) L 11/08/18 17:30 B-Natriuretic Peptide 114.0 pg/mL (5.0-100.0) H 11/08/18 17:30 Total Protein 6.3 gm/dL (6.0-8.3) 11/08/18 17:30 Albumin 3.1 gm/dL (4.2-5.5) L 11/08/18 17:30 Globulin 3.2 gm/dL 11/08/18 17:30 Albumin/Globulin Ratio 1.0 (1.0-1.8) 11/08/18 17:30 Triglycerides 132 mg/dL (<150) 11/08/18 17:30 Cholesterol 136 mg/dL (<200) 11/08/18 17:30 LDL Cholesterol Direct 105 mg/dL (75-193) 11/08/18 17:30 HDL Cholesterol 22 mg/dL (23-92) L 11/08/18 17:30 Urine Source RANDOM 11/10/18 16:40 Urine Color STRAW 11/10/18 16:40 Urine Clarity SLIGHT HAZY (CLEAR) 11/10/18 16:40 Urine pH 6.0 (4.6 - 8.0) 11/10/18 16:40 Ur Specific [place] >= 1.030 (1.005-1.030) 11/10/18 16:40 Urine Protein TRACE mg/dL (NEGATIVE) 11/10/18 16:40 Urine Glucose (UA) NEGATIVE mg/dL (NEGATIVE) 11/10/18 16:40 Urine Ketones TRACE mg/dL (NEGATIVE) 11/10/18 16:40 Urine Blood NEGATIVE (NEGATIVE) 11/10/18 16:40 Urine Nitrate POSITIVE (NEGATIVE) H 11/10/18 16:40 Urine Bilirubin NEGATIVE (NEGATIVE) 11/10/18 16:40 Urine Urobilinogen 1.0 E.U./dL (0.2 - 1.0) 11/10/18 16:40 Ur Leukocyte Esterase NEGATIVE (NEGATIVE) 11/10/18 16:40 Urine RBC NONE SEEN /hpf (0-5) 11/10/18 16:40 Urine WBC 0-2 /hpf (0-5) 11/10/18 16:40 Ur Epithelial Cells RARE /lpf (FEW) 11/10/18 16:40 Urine Bacteria OCCASIONAL /hpf (NONE SEEN) 11/10/18 16:40 - Physical Exam Vitals and I&O: Vital Signs Temp 96.6 F 11/11/18 09:20 Pulse 79 11/11/18 09:20 Resp 18 11/11/18 10:13 BP 125/70 11/11/18 09:20 Pulse Ox 99 11/11/18 09:20 Intake & Output 11/10/18 11/11/18 11/11/18 18:59 06:59 18:59 Intake Total 443.876 5334 Output Total 0 Balance 749.247 3381 Weight (lbs) 73.936 kg 75.296 kg Intake: Intake, IV Amount 962.167 250 Cefepime 1 gm In Dextrose 50 50 5% 50 ml @ 100 mls/hr IV Q12H [facility] Rx#:[id number] D5-0.45NS 1,000 ml @ 70 812.167 mls/hr IV .[id number] [facility] Rx #:[id number] metroNIDAZOLE 500mg/NS 100 200 100mL 500 mg In 100 ml @ 100 mls/hr IV Q8HR [facility] Rx #:[id number] Tube Feeding 900 Output: Urine/Stool Mix 0 Other: # Voids 3 2 # Bowel Movements 1 Stool Characteristics Soft Soft Weight Source Bedscale Bedscale Active Medications: Current Medications Acetaminophen (Tylenol 650mg Supp) 650 mg RC Q4HR PRN PRN Reason: TEMP >100 Stop: 01/07/19 19:50 Albuterol Sulfate (Albuterol 2.5mg/3ml Neb Ud) 2.5 mg HHN Q4HR PRN PRN Reason: Congestion Stop: 01/07/19 19:50 Albuterol Sulfate (Albuterol 2.5mg/3ml Neb Ud) 2.5 mg HHN QIDRT [facility] Stop: 01/08/19 06:59 Last Admin: 11/11/18 07:35 Dose: 2.5 mg Atenolol (Tenormin) 25 mg GT DAILY [facility] Stop: 01/08/19 08:59 Last Admin: 11/11/18 08:49 Dose: 25 mg Bisacodyl (Dulcolax 10 Mg Supp) 10 mg RC PRN PRN PRN Reason: IF MOM INEFFECTIVE Stop: 01/07/19 19:50 Dextromethorphan/Quinidine (Nuedexta 20mg-10mg) 1 cap GT BID [facility] Stop: 01/08/19 08:59 Last Admin: 11/11/18 08:49 Dose: 1 cap Cefepime HCl 1 gm/ Dextrose 50 mls @ 100 mls/hr IV Q12H [facility] Stop: 01/07/19 19:59 Last Admin: 11/11/18 08:48 Dose: 100 mls/hr Metronidazole (Flagyl) 500 mg in 100 mls @ 100 mls/hr IV Q8HR [facility] Stop: 01/07/19 20:59 Last Infusion: 11/11/18 06:17 Dose: Infused Dextrose/Sodium Chloride (D5-0.45ns) 1,000 mls @ 70 mls/hr IV .[id number] [facility] Stop: 01/08/19 13:29 Last Admin: 11/10/18 20:43 Dose: 70 mls/hr Ipratropium [place] (Atrovent Neb 0.5mg/2.5ml) 0.5 mg HHN Q4HR PRN PRN Reason: Congestion Stop: 01/07/19 19:50 Ipratropium [place] (Atrovent Neb 0.5mg/2.5ml) 0.5 mg HHN QIDRT [facility] Stop: 01/08/19 06:59 Last Admin: 11/11/18 07:35 Dose: 0.5 mg Methylprednisolone Sodium Succinate (Solu-Medrol) 40 mg IVP Q12HR [facility] Stop: 01/10/19 20:59 Ondansetron HCl (Zofran) 4 mg IV Q8H PRN PRN Reason: Nausea / Vomiting Stop: 01/07/19 19:53 Pantoprazole Sodium (Protonix) 40 mg GT DAILY [facility] Stop: 01/08/19 08:59 Last Admin: 11/11/18 08:49 Dose: 40 mg Polyethylene Glycol (Miralax) 17 gm GT DAILY [facility] Stop: 01/08/19 08:59 Last Admin: 11/11/18 08:48 Dose: 17 gm Quetiapine Fumarate (Seroquel) 350 mg GT HS [facility]; Protocol Stop: 01/07/19 20:59 Last Admin: 11/10/18 20:42 Dose: 350 mg Quetiapine Fumarate (Seroquel) 200 mg GT DAILY [facility] Stop: 01/08/19 08:59 Last Admin: 11/11/18 08:49 Dose: 200 mg Sodium Phosphate (Fleet Enema) 135 ml RC PRN PRN PRN Reason: IF DULCOLAX INEFFECTIVE Stop: 01/07/19 19:50 Trazodone HCl (Desyrel) 25 mg GT HS [facility]; Protocol Stop: 01/07/19 20:59 Last Admin: 11/10/18 20:41 Dose: 25 mg Valproate Sodium (Depakene) 750 mg GT HS [facility]; Protocol Stop: 01/07/19 20:59 Last Admin: 11/10/18 20:39 Dose: 750 mg Valproate Sodium (Depakene) 625 mg GT DAILY [facility] Stop: 01/08/19 08:59 Last Admin: 11/11/18 08:49 Dose: 625 mg General: congested, demented HEENT: NC/AT, PERRLA Neck: Supple, No JVD Lungs: congested, rales, ronchi Cardiovascular: RRR, Normal S1, Normal S2, without murmur Abdomen: soft, globular, +GT Extremities: excoriation, contracture Neurological: no change, disorganized - Procedures Procedures: Procedures Procedure Code Date ASSISTANCE WITH RESPIRATORY VENTILATION, 24-96 HRS, CPAP [id number] 11/03/17 CHANGE FEEDING DEVICE IN UP INTEST TRACT, 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 [id number] 11/02/18 CHANGE GASTROSTOMY TUBE 87926 07/06/17 DRAINAGE OF STOMACH WITH DRAINAGE DEVICE, VIA OPENING [id number] 11/03/17 EGD BIOPSY SINGLE/MULTIPLE 54506 09/11/[address] GASTROSTOMY TUBE 50585 02/16/09 EXCISION OF STOMACH, ENDO, DIAGN [id number] 09/11/17 INSERT EMERGENCY AIRWAY 17015 12/21/16 INSERTION OF ENDOTRACHEAL AIRWAY INTO TRACHEA, VIA OPENING [id number] 12/21/16 INSERTION OF INFUSION DEVICE INTO R ATRIUM, PERC APPROACH [id number] 12/21/16 OTHER ENDOSCOPY OF SM INTEST 45.13 02/16/09 REPLACE GASTROSTOMY TUBE 97.02 02/16/09 RESPIRATORY VENTILATION, GREATER THAN 96 CONSECUTIVE HOURS [id number] 12/21/16 VENT MGMT INPAT INIT DAY 12/21/16 VENT MGMT INPAT SUBQ DAY 12/21/16 Internal Medicine Assmt/Plan - Assessment Assessment: ASSESSMENT AND PLAN: Acute hypoxemic respiratory failure, pneumonia, possible aspiration, recent G-tube replacement, mental retardation, psych disorder, renal insufficiency, and bedbound. - Plan Plan: We will work up the patient for sepsis. We will check the patient's lactic acid. Continue on aggressive rehydration. We will start the patient on IV hydration. We will provide the patient with broad spectrum cephalosporins as well as Flagyl for antibiotic coverage. We will put the patient on IV steroids. We will review the patient's chest x-ray. We will refer the patient to Pulmonary and we will monitor the patient closely on telemetry.
[2018-11-11] MEDS: D5-0.45NS 1,000 ML IV SCH (12:00)
[2018-11-11] MEDS ORDERED: Probiotic Screen MC PRN (15:15)
[2018-11-12] MEDS: metroNIDAZOLE 500mg/NS 100mL 500 MG/100 ML BAG IV SCH ×3 (05:15→20:44)
[2018-11-12] MEDS: D5-0.45NS 1,000 ML IV SCH ×2 (06:36→21:50)
[2018-11-12] MEDS: Ipratropium Neb 0.5 mg/2.5 mL UD HHN SCH (06:42)
[2018-11-12] MEDS: Albuterol Nebulizer 2.5mg/3mL HHN SCH (06:42)
--- NOTE | 2018-11-12 09:19 | Internal Medicine Prog Note ---
Internal Medicine Subjective - Subjective Patient seen and examined:: with staff, chart reviewed Patient is:: awake, verbal, interactive, in bed Patient Complaints of:: congestion Per staff patient has:: no adverse event, no episodes of fall, choking, noncompliant, confused, tolerating meds Internal Medicine Objective - Results Result Diagrams: 11/11/18 06:14 11/11/18 06:14 Recent Labs: Laboratory Last Values WBC 8.5 Th/cmm (4.8-10.8) 11/11/18 06:14 RBC 3.53 Mil/cmm (3.80-5.80) L 11/11/18 06:14 Hgb 11.0 gm/dL (12-16) L 11/11/18 06:14 Hct 32.7 % (41.0-60) L 11/11/18 06:14 MCV 92.8 fl (80-99) 11/11/18 06:14 MCH 31.3 pg (27.0-31.0) H 11/11/18 06:14 MCHC Differential 33.7 pg (28.0-36.0) 11/11/18 06:14 RDW 13.4 % (11.5-20.0) 11/11/18 06:14 Plt Count 243 Th/cmm (150-400) 11/11/18 06:14 MPV 8.9 fl 11/11/18 06:14 Add Manual Diff YES 11/11/18 06:14 Neutrophils % 64.7 % (40.0-80.0) 11/08/18 17:30 Band Neutrophils % 2 % (0-10) 11/11/18 06:14 Lymphocytes % 18.7 % (20.0-50.0) L 11/08/18 17:30 Monocytes % 13.9 % (2.0-10.0) H 11/08/18 17:30 Eosinophils % 2.5 % (0.0-5.0) 11/08/18 17:30 Basophils % 0.2 % (0.0-2.0) 11/08/18 17:30 Neutrophils (Manual) 85 % (40-80) H 11/11/18 06:14 Lymphocytes 10 % (20-50) L 11/11/18 06:14 Monocytes 3 % (2-10) 11/11/18 06:14 Eosinophils 0 % (0-5) 11/11/18 06:14 Basophils 0 % (0-3) 11/11/18 06:14 PT 10.7 SECONDS (9.5-11.5) 11/08/18 17:30 INR 1.03 (0.5-1.4) 11/08/18 17:30 PTT (Actin FS) 30.4 SECONDS (26.0-38.0) 11/08/18 17:30 D-Dimer 857 ng/mL (100-400) H 11/08/18 17:30 Sodium 141 mEq/L (136-145) 11/11/18 06:14 Potassium 4.2 mEq/L (3.5-5.1) 11/11/18 06:14 Chloride 105 mEq/L (98-107) 11/11/18 06:14 Carbon Dioxide 29.6 mEq/L (21.0-31.0) 11/11/18 06:14 Anion Gap 10.6 (7.0-16.0) 11/11/18 06:14 BUN 36 mg/dL (7-25) H 11/11/18 06:14 Creatinine 0.6 mg/dL (0.7-1.3) L 11/11/18 06:14 Est GFR ( Amer) > 60.0 ml/min (>90) 11/11/18 06:14 Est GFR (Non-Af Amer) > 60.0 ml/min 11/11/18 06:14 BUN/Creatinine Ratio 60.0 11/11/18 06:14 Glucose 160 mg/dL (70-105) H 11/11/18 06:14 Whole Bld Lactic Acid 1.71 mmol/L (0.60-1.99) 11/08/18 19:25 Calcium 8.5 mg/dL (8.6-10.3) L 11/11/18 06:14 Magnesium 2.2 mg/dL (1.9-2.7) 11/10/18 05:00 Total Bilirubin 0.6 mg/dL (0.3-1.0) 11/08/18 17:30 AST 23 U/L (13-39) 11/08/18 17:30 ALT 10 U/L (7-52) 11/08/18 17:30 Alkaline Phosphatase 84 U/L (34-104) 11/08/18 17:30 Creatine Kinase 64 U/L (30-223) 11/08/18 17:30 Troponin I < 0.01 ng/mL (0.01-0.05) L 11/08/18 17:30 B-Natriuretic Peptide 114.0 pg/mL (5.0-100.0) H 11/08/18 17:30 Total Protein 6.3 gm/dL (6.0-8.3) 11/08/18 17:30 Albumin 3.1 gm/dL (4.2-5.5) L 11/08/18 17:30 Globulin 3.2 gm/dL 11/08/18 17:30 Albumin/Globulin Ratio 1.0 (1.0-1.8) 11/08/18 17:30 Triglycerides 132 mg/dL (<150) 11/08/18 17:30 Cholesterol 136 mg/dL (<200) 11/08/18 17:30 LDL Cholesterol Direct 105 mg/dL (75-193) 11/08/18 17:30 HDL Cholesterol 22 mg/dL (23-92) L 11/08/18 17:30 Urine Source RANDOM 11/10/18 16:40 Urine Color STRAW 11/10/18 16:40 Urine Clarity SLIGHT HAZY (CLEAR) 11/10/18 16:40 Urine pH 6.0 (4.6 - 8.0) 11/10/18 16:40 Ur Specific [place] >= 1.030 (1.005-1.030) 11/10/18 16:40 Urine Protein TRACE mg/dL (NEGATIVE) 11/10/18 16:40 Urine Glucose (UA) NEGATIVE mg/dL (NEGATIVE) 11/10/18 16:40 Urine Ketones TRACE mg/dL (NEGATIVE) 11/10/18 16:40 Urine Blood NEGATIVE (NEGATIVE) 11/10/18 16:40 Urine Nitrate POSITIVE (NEGATIVE) H 11/10/18 16:40 Urine Bilirubin NEGATIVE (NEGATIVE) 11/10/18 16:40 Urine Urobilinogen 1.0 E.U./dL (0.2 - 1.0) 11/10/18 16:40 Ur Leukocyte Esterase NEGATIVE (NEGATIVE) 11/10/18 16:40 Urine RBC NONE SEEN /hpf (0-5) 11/10/18 16:40 Urine WBC 0-2 /hpf (0-5) 11/10/18 16:40 Ur Epithelial Cells RARE /lpf (FEW) 11/10/18 16:40 Urine Bacteria OCCASIONAL /hpf (NONE SEEN) 11/10/18 16:40 - Physical Exam Vitals and I&O: Vital Signs Temp 98.1 F 11/12/18 08:05 Pulse 78 11/12/18 08:05 Resp 18 11/12/18 08:05 BP 83/52 11/12/18 08:05 Pulse Ox 100 11/12/18 08:05 Intake & Output 11/11/18 11/12/18 11/12/18 18:59 06:59 18:59 Intake Total 1450 2030.000 Balance 1450 2030.000 Weight (lbs) 74.843 kg 74.843 kg Intake: Intake, IV Amount 1150 1250.000 Cefepime 1 gm In Dextrose 50 50 5% 50 ml @ 100 mls/hr IV Q12H [facility] Rx#:[id number] D5-0.45NS 1,000 ml @ 70 1000 1000 mls/hr IV .[id number] [facility] Rx #:[id number] metroNIDAZOLE 500mg/NS 100 200.000 100mL 500 mg In 100 ml @ 100 mls/hr IV Q8HR [facility] Rx #:[id number] Tube Feeding 300 780 Other: # Voids 4 2 # Bowel Movements 2 1 Stool Characteristics Soft Soft Soft Weight Source Bedscale Bedscale Active Medications: Current Medications Acetaminophen (Tylenol 650mg Supp) 650 mg RC Q4HR PRN PRN Reason: TEMP >100 Stop: 01/07/19 19:50 Albuterol Sulfate (Albuterol 2.5mg/3ml Neb Ud) 2.5 mg HHN Q4HR PRN PRN Reason: Congestion Stop: 01/07/19 19:50 Albuterol/Ipratropium (Duoneb Neb) 3 ml HHN QIDRT [facility] Stop: 01/11/19 10:59 Bisacodyl (Dulcolax 10 Mg Supp) 10 mg RC PRN PRN PRN Reason: IF MOM INEFFECTIVE Stop: 01/07/19 19:50 Dextromethorphan/Quinidine (Nuedexta 20mg-10mg) 1 cap GT BID [facility] Stop: 01/08/19 08:59 Last Admin: 11/11/18 16:03 Dose: 1 cap Metronidazole (Flagyl) 500 mg in 100 mls @ 100 mls/hr IV Q8HR [facility] Stop: 01/07/19 20:59 Last Infusion: 11/12/18 06:40 Dose: Infused Dextrose/Sodium Chloride (D5-0.45ns) 1,000 mls @ 70 mls/hr IV .[id number] [facility] Stop: 01/08/19 13:29 Last Admin: 11/12/18 06:36 Dose: 70 mls/hr Ipratropium [place] (Atrovent Neb 0.5mg/2.5ml) 0.5 mg HHN Q4HR PRN PRN Reason: Congestion Stop: 01/07/19 19:50 Methylprednisolone Sodium Succinate (Solu-Medrol) 40 mg IVP Q12HR [facility] Stop: 01/10/19 20:59 Last Admin: 11/11/18 21:43 Dose: 40 mg Miscellaneous (Probiotic Screen) 1 ea MC PRN PRN PRN Reason: PROTOCOL Stop: 01/10/19 15:14 Ondansetron HCl (Zofran) 4 mg IV Q8H PRN PRN Reason: Nausea / Vomiting Stop: 01/07/19 19:53 Pantoprazole Sodium (Protonix) 40 mg GT DAILY [facility] Stop: 01/08/19 08:59 Last Admin: 11/11/18 08:49 Dose: 40 mg Polyethylene Glycol (Miralax) 17 gm GT DAILY [facility] Stop: 01/08/19 08:59 Last Admin: 11/11/18 08:48 Dose: 17 gm Quetiapine Fumarate (Seroquel) 350 mg GT HS [facility]; Protocol Stop: 01/07/19 20:59 Last Admin: 11/11/18 21:44 Dose: 350 mg Quetiapine Fumarate (Seroquel) 200 mg GT DAILY [facility] Stop: 01/08/19 08:59 Last Admin: 11/11/18 08:49 Dose: 200 mg Sodium Phosphate (Fleet Enema) 135 ml RC PRN PRN PRN Reason: IF DULCOLAX INEFFECTIVE Stop: 01/07/19 19:50 Trazodone HCl (Desyrel) 25 mg GT HS [facility]; Protocol Stop: 01/07/19 20:59 Last Admin: 11/11/18 21:43 Dose: 25 mg Valproate Sodium (Depakene) 750 mg GT HS [facility]; Protocol Stop: 01/07/19 20:59 Last Admin: 11/11/18 21:43 Dose: 750 mg Valproate Sodium (Depakene) 625 mg GT DAILY [facility] Stop: 01/08/19 08:59 Last Admin: 11/11/18 08:49 Dose: 625 mg General: congested, demented HEENT: NC/AT, PERRLA Neck: Supple, No JVD Lungs: congested, rales, ronchi Cardiovascular: RRR, Normal S1, Normal S2, without murmur Abdomen: soft, globular, +GT Extremities: excoriation, contracture Neurological: no change, disorganized - Procedures Procedures: Procedures Procedure Code Date ASSISTANCE WITH RESPIRATORY VENTILATION, 24-96 HRS, CPAP [id number] 11/03/17 CHANGE FEEDING DEVICE IN UP INTEST TRACT, 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 [id number] 11/02/18 CHANGE GASTROSTOMY TUBE 51398 07/06/17 DRAINAGE OF STOMACH WITH DRAINAGE DEVICE, VIA OPENING [id number] 11/03/17 EGD BIOPSY SINGLE/MULTIPLE 85767 09/11/[address] GASTROSTOMY TUBE 54110 02/16/09 EXCISION OF STOMACH, ENDO, DIAGN [id number] 09/11/17 INSERT EMERGENCY AIRWAY 50569 12/21/16 INSERTION OF ENDOTRACHEAL AIRWAY INTO TRACHEA, VIA OPENING [id number] 12/21/16 INSERTION OF INFUSION DEVICE INTO R ATRIUM, PERC APPROACH 73G406A 12/21/16 OTHER ENDOSCOPY OF SM INTEST 45.13 02/16/09 REPLACE GASTROSTOMY TUBE 97.02 02/16/09 RESPIRATORY VENTILATION, GREATER THAN 96 CONSECUTIVE HOURS [id number] 12/21/16 VENT MGMT INPAT INIT DAY 16418 12/21/16 VENT MGMT INPAT SUBQ DAY 76442 12/21/16 Internal Medicine Assmt/Plan - Assessment Assessment: ASSESSMENT AND PLAN: Acute hypoxemic respiratory failure, pneumonia, possible aspiration, recent G-tube replacement, mental retardation, psych disorder, renal insufficiency, and bedbound. - Plan Plan: We will work up the patient for sepsis. We will check the patient's lactic acid. Continue on aggressive rehydration. We will start the patient on IV hydration. We will provide the patient with broad spectrum cephalosporins as well as Flagyl for antibiotic coverage. We will put the patient on IV steroids. We will review the patient's chest x-ray. We will refer the patient to Pulmonary and we will monitor the patient closely on telemetry. Nutritional Asmnt/Malnutr-PDOC - Dietary Evaluation Malnutrition Findings (Please click <Entered> for more info): Nutritional Asmnt/Malnutrition Start: 11/11/18 13: 39 Text: Status: Complete Freq: Protocol: Document 11/11/18 13:40 MMULN (Rec: 11/11/18 13:53 MMULHERN ANDREY FN) Nutritional Asmnt/Malnutrition Patient General Information Nutritional Screening Moderate Risk Diagnosis PNA and possible aspiration, respiratory distress Pertinent Medical Hx/Surgical Hx MODERATE INTELLECTUAL DISABILITY, PSYCHOSIS, DYSPHAGIA, ENCEPHALOPATHY, ASPIRATION PNA, NPO, GASTROSTOMY, IMPULSE CONTROL DISORDER, INSOMNIA, GASTRITIS, BIPOLAR, PSEUDOBULBAR AFFECT, CHOLELITHIASIS, NASAL BASAL CELL CA Subjective Information Per nursing notes, patient with intellectual disability. Tolerating tube feeding well. Patient in bed at time of visit. TF off at this time per schedule. will start again at 4pm. Current Diet Order/ Nutrition Support Jevity 1.2 at 75 ml/hr x 16 hours (on at 4p off at 8a) Patient / S.O Not Indicated Pertinent Medications dulcolax, D5-0.45 NS@ 70ml/hr, solu-medrol, flagyl, zofran, protonix, miralax, fleet enema Pertinent Labs (11/11) BUN 36, Cr 0.6, BNP 114 , Albumin 3.1 Nutritional Hx/Data Height 1.68 m Height (Calculated Centimeters) 167.6 Current Weight (lbs) 75.296 kg Weight (Calculated Kilograms) 75.3 Weight (Calculated Grams) 76281.3 [place] Body Weight 142 % [place] Body Weight 116 Body Mass Index (BMI) 26.8 Recent Weight Change No Weight Status Overweight GI Symptoms Last BM 11/10 x2 Difficult in: Chewing Swallowing Food Allergies No Cultural/Ethnic/Temple Belief none indicated Usual diet at home Jevity 1.2 @ 75 ml/hr x 16 hours. 1200 ml volume, 1440 kcal, 66 gm protein. Skin Integrity/Comment: Mick 13, intact Estimated Nutritional Goals BEE in Kcals: Using Current wt Calories/Kcals/Kg 22-27 kcal/kg using 75.4kg CBW Kcals Calculated ~4404-9726 kcal/day Protein: Using Current wt Protein g/kg: .8-1 gm/kg Protein Calculated ~60-75 gm/day Fluid: ml ~5450-4693 ml/day (1 ml/kcal) Nutritional Problem 1. Problem Problem No nutrition diagnosis at this time Intervention/Recommendation Comments Continue current tube feeding regimen as tolerated by patient. Expected Outcomes/Goals Expected Outcomes/Goals Tube feeding runs at goal rate with tolerance to meet >75% of nutrient needs, weight stable, labs WNL
[2018-11-12] MEDS: Dextromethorphan/Quinidine 20mg/10mg Cap GT SCH ×2 (09:51→16:17)
[2018-11-12] MEDS: POLYETHYLENE GLYCOL 3350 17 GM PACK GT SCH (09:51)
[2018-11-12] MEDS: methylPREDNISolone SS 40 mg Vial IVP SCH ×2 (09:51→21:52)
[2018-11-12] MEDS: Pantoprazole 40 mg/Packet GT SCH (09:51)
[2018-11-12] MEDS: Albuterol/Ipratropium Neb 3 ML AERS HHN SCH ×3 (10:48→18:42)
[2018-11-13] MEDS: metroNIDAZOLE 500mg/NS 100mL 500 MG/100 ML BAG IV SCH ×2 (04:26→14:17)
[2018-11-13] MEDS: Albuterol/Ipratropium Neb 3 ML AERS HHN SCH ×3 (06:51→14:34)
[2018-11-13] MEDS: methylPREDNISolone SS 40 mg Vial IVP SCH (09:34)
[2018-11-13] MEDS: Pantoprazole 40 mg/Packet GT SCH (09:35)
[2018-11-13] MEDS: POLYETHYLENE GLYCOL 3350 17 GM PACK GT SCH (09:35)
[2018-11-13] MEDS: D5-0.45NS 1,000 ML IV SCH (09:35)
[2018-11-13] MEDS: Dextromethorphan/Quinidine 20mg/10mg Cap GT SCH (09:35)
--- NOTE | 2018-11-13 11:04 | Consultation ---
DATE OF CONSULTATION: PATIENT OF: Dr. Thomas HISTORY OF PRESENT ILLNESS: This is a 63-year-old male who has history of COPD, some disability, dysphagia. The patient developed respiratory distress and was admitted for treatment and management. The patient has improved for now. He has been here before for pneumonia and COPD exacerbation. PAST MEDICAL HISTORY: As above. SOCIAL HISTORY: As above. REVIEW OF SYSTEMS: Unable to obtain because of the patient's condition. PHYSICAL EXAMINATION: GENERAL: The patient is awake, confused, not in any acute distress. VITAL SIGNS: Temperature 97.3, pulse ____, respirations 18, blood pressure 112/59, saturation 97%. HEENT: Atraumatic and normocephalic. Pupils react to light and accommodation. Ears, nose and throat normal. NECK: Supple. No JVD. CHEST: There are decreased breath sounds in bases, few rhonchi. HEART: Regular rate and rhythm. ABDOMEN: Soft. EXTREMITIES: No edema. LABORATORY DATA: WBC is 5.7, hemoglobin 12.0, hematocrit 34.9, platelets 229. Sodium ____, creatinine 0.6. Troponin is negative. BNP is 114. Chest x-ray showed no obvious infiltrate. IMPRESSION: This is a 63-year-old male with; 1. Respiratory failure, hypoxemia. 2. Chronic obstructive pulmonary disease exacerbation. 3. Bronchospasm. 4. Acute bronchitis. PLAN: 1. Continue nebulizer treatment. 2. Antibiotics. 3. Solu-Medrol. I will follow the patient with you. Thank you very much for this consultation. JOB# [id number]
--- NOTE | 2018-11-13 20:53 | Discharge Summary ---
DATE OF DISCHARGE: 11/13/2018 CHIEF COMPLAINT: Oxygen desaturation and respiratory distress. FINAL DIAGNOSES: Pneumonia, positive for Morganella, possible aspiration, acute hypoxic respiratory failure, recent G-tube replacement, mental retardation, psych disorder, renal insufficiency, bedbound. HISTORY OF PRESENT ILLNESS: This is a 63-year-old patient male with multiple medical problems with recent G-tube. The patient apparently was in respiratory distress in his nursing facility and admitted through the ER. PHYSICAL EXAMINATION: VITAL SIGNS: Blood pressure 116/57, respiratory rate 18, pulse 83, temperature 97. GENERAL: Elderly male, appears stated age, appears chronically ill. NECK: Supple. No mass. LUNGS: Equal breath sounds, few rhonchi. HEART: Regular rate and rhythm with systolic ejection murmur. ABDOMEN: Soft, globular. EXTREMITIES: Positive excoriations. NEUROLOGIC: Limited. HOSPITAL COURSE: This patient was admitted to telemetry, continued on oxygen and bronchodilator treatments. Sputum grew Morganella. The patient was seen by Dr. Pineda, Pulmonary. The patient is not cleared for transfer back to the nursing facility and the patient is to be transferred to a long-term acute care. CONDITION ON DISCHARGE: Fair. DISCHARGE INSTRUCTIONS: The patient is to continue on IV Zosyn and IV steroids. We will continue following the patient. JOB# [id number]
== END 2018-11-13 15:35 | DRG 871 ==
LOC: ER 17:00 → TELE 19:45
PROVIDERS: ADMIT Internal Medicine; ATTEND Internal Medicine
DX: A41.9 Sepsis, unspecified organism (principal); J69.0 Pneumonitis due to inhalation of food and vomit; J96.01 Acute respiratory failure with hypoxia; J44.0 Chronic obstructive pulmonary disease with (acute) lower respiratory infection; G93.40 Encephalopathy, unspecified; J44.1 Chronic obstructive pulmonary disease with (acute) exacerbation; I10 Essential (primary) hypertension; E78.5 Hyperlipidemia, unspecified; K21.9 Gastro-esophageal reflux disease without esophagitis; R56.9 Unspecified convulsions; M19.90 Unspecified osteoarthritis, unspecified site; F03.90 Unspecified dementia, unspecified severity, without behavioral disturbance, psychotic disturbance, mood disturbance, and anxiety; F29 Unspecified psychosis not due to a substance or known physiological condition; J20.9 Acute bronchitis, unspecified; F79 Unspecified intellectual disabilities; N28.9 Disorder of kidney and ureter, unspecified; Z82.49 Family history of ischemic heart disease and other diseases of the circulatory system; Z93.1 Gastrostomy status; Z86.73 Personal history of transient ischemic attack (TIA), and cerebral infarction without residual deficits; Z74.01 Bed confinement status
CPT/HCPCS: 36415-UA; 71045-TC; 80048-TC; 80053-TC; 80061-TC; 81001-TC; 81003-TC; 82550-TC; 83605; 83735-TC; 83880-TC; 84484-TC; 85007-TC; 85025-TC; 85379-TC; 85610-TC; 85730-TC; 87070; 87086-90; 90779; 90799; 93005; 94760; J0692; J1956; J2543; J2704; J2920; J7030; J7613; Z7610